=== PATIENT | female | born 1990 | race Caucasian/White ===

== ENCOUNTER 2024-05-23 08:05 | Emergency (ER) | payer BC, OTHER, SELFPAY ==
[2024-05-23] VITALS (13 sets, daily range): BP systolic 116–149; BP diastolic 72–103; PULSE 57–79; TEMP 36.8; O2SAT 98–100; BMI 25.8
[2024-05-23 08:21] LABS: Glucometer 105 mg/dL (74-106)
--- NOTE | 2024-05-23 08:34 | XR_ITS ---
The [address] [address] Patient Name: HARSH OLIVARES MRN: [id number] date: 1990 Sex: F Assigned Patient Location: ER Current Patient Location: ER Accession/Order Number: [id number] Exam Date: 05/23/2024 08:50 Report Date: 05/23/2024 09:05 At the request of: LISS WRIGHT Procedure: XR chest 1V EXAMINATION: XR chest 1V HISTORY: presyncope COMPARISON: No relevant comparison available. FINDINGS: LUNGS: No significant pulmonary parenchymal abnormalities. VASCULATURE: No increased pulmonary vasculature. PLEURA: No pneumothorax, effusion, or pleural thickening. CARDIAC: No cardiomegaly or cardiac silhouette abnormality. MEDIASTINUM: No visible mass or adenopathy. BONES: No fracture or visible bone lesion. OTHER: Negative. XR/XR chest 1V IMPRESSION: 1. No acute cardiopulmonary process. Electronically authenticated by: AYDE MIN Date: 05/23/2024 09:05
--- NOTE | 2024-05-23 08:35 | ED.GENADUL1 ---
HPI HPI - General Adult General Chief complaint: Dizziness Stated complaint: LIGHT HEADED, LOSS OF VISION, TINGLING IN ARMS Time Seen by Provider: 05/23/24 08:17 Source: patient Mode of arrival: walk-in History of Present Illness HPI narrative: Patient presented to the emergency department for evaluation of not feeling well. Patient states that prior to arrival she was at work, was just sitting there, and noticed that all of a sudden she started feeling lightheaded, got tunnel vision, loss of peripheral both sides, states she fell like she was going to pass out. Patient states that she was not feeling dizzy, was not having double vision or blurry vision, she just lost both peripheral exam, vision, folic she was going to pass out. She closed her eyes and just rested. Patient states at that time she was not having any chest pain, shortness of breath, palpitations. States she does feel like she was going to pass out. Patient states at that time her entire right arm started having tingling, she states it was from the shoulder all the way to the fingertips, medial as well as lateral, flexors was extensor service, states the entire arm felt like [id number] like when the arm falls asleep. She states that that lasted all approximately 2 to 3 minutes and is gone away spontaneously. Patient states that this happened to her also about a month ago, but she never followed up Or was worked up for it. The patient currently states that she is asymptomatic and has no complaints at this time Related Data Home Medications ?Medication ?Instructions ?Recorded ?Confirmed No Known Home Medications 05/23/24 05/23/24 Allergies Allergy/AdvReac Type Severity Reaction Status Date / Time No Known Drug Allergies Allergy Verified 05/23/24 08:11 Opioid HPI Opioid Management Most Recent Opioid Data: No Data to Display Review of Systems ROS Narrative Negative unless otherwise stated in the HPI Exam Narrative Exam Narrative: General: NAD, AAOx3, no distress Eyes: PERRL, EOMI, lids/conjunctiva normal. HEENT: NCAT, mmm, TMs normal bilaterally. No lymphangitis/lymphedema, midline uvula, no exudates, normal tonsils without hypertrophy or exudates Neck: Supple, no LAD, negative Kernig/Brudzinski, non meningeal, no bruit Respiratory: respiratory effort normal, speaks in full sentences, no tripod position, no accessory muscle use. Lungs clear to auscultation without rhonchi, wheezes, rales Cardiac: Regular rate and rhythm, no edema, regular s1/s2, no m/g/r Abdomen: Soft, ND/NT. No evidence of fluid wave. No pulsatile masses on exam, rebound tenderness, Jones sign or pain over Mcburney's point. Neuro: Speech is clear and appropriate. Normal level of consciousness. Gait and coordination are normal. 5/5 strength in all extremities. Constitutional Vital Signs, click to edit/add: Last Vital Signs Temp 98.3 F 05/23/24 08:12 Pulse 65 05/23/24 08:12 Resp 18 05/23/24 08:12 BP 149/103 H 05/23/24 08:12 Pulse Ox 98 05/23/24 08:29 O2 Del Method Room Air 05/23/24 08:29 Course Vital Signs Vital signs: Vital Signs Temperature 98.3 F 05/23/24 08:12 Pulse Rate 65 05/23/24 08:12 Respiratory Rate 18 05/23/24 08:12 Blood Pressure 149/103 H 05/23/24 08:12 Pulse Oximetry 100 05/23/24 08:12 Oxygen Delivery Method Room Air 05/23/24 08:12 Temperature 98.3 F 05/23/24 08:12 Pulse Rate 65 05/23/24 08:12 Respiratory Rate 18 05/23/24 08:12 Blood Pressure 149/103 H 05/23/24 08:12 Pulse Oximetry 98 05/23/24 08:29 Oxygen Delivery Method Room Air 05/23/24 08:29 Medical Decision Making [facility] Narrative Medical decision making narrative: [facility] Patient with history as above presented with presyncope, paresthesia. History obtained from patient. Patient was nontoxic, stable. Ambulatory. Exam as above. EKG reviewed. Labs reviewed. Independently reviewed imaging. Reviewed external records. Differential diagnosis considered. Overall presentation is consistent with presyncope Patient was reevaluated, had no complaints. States that she has had no repeat episodes and feels well, would like to go home. The patient presents with near syncope is not suggestive of pulmonary embolus, cardiac ischemia, aortic dissection, Hypertrophic cardiomyopathy, or other serious etiology. Given the extremely low risk of these diagnoses further testing and evaluation for these possibilities does not appear to be indicated at this time. EKG shows no high risks features suggestive of conduction abnormality, such as long QT syndrome, Brugada syndrome, preexcitation syndrome, pericarditis or Hypertrophic cardiomyopathy . A 2 D ECHO can be done as outpatient. The patient has been instructed to return if the symptoms worsen or change in any way. Likely vasovagal in etiology. He has no neurologic, metabolic: hypoxia, hypoglycemia, hyperventilation, or psychiatric causes of syncope.No evidence of mechanical cardiac disease including aortic stenosis, mitral stenosis, pulmonary stenosis on exam. His EKG obtained showed no acute abnormalities. No evidence of sinus node dysfunction, AV conduction disease, tachyarrhythmia or Supraventricular arrhythmia. Advanced guidance has been given. Vss, pex is benign at this time. Pt to fu with pcp 1-2 days for reeval, rter should sx worsen, persist or become worrysome in any way. Pt expressed understanding and agreement with plan of care at this time. Will fu as planned. Pt stable for discharge. Medical Records Medical records reviewed: Yes I reviewed the patient's medical records Lab Data Lab results reviewed: Yes I reviewed the patient's lab results Labs: Lab Results 05/23/24 05/23/24 Range/Units 08:12 08:16 WBC 7.3 (4.0-11.0) 10^3/uL RBC 4.55 (4.20-5.40) 10^6/uL Hgb 14.0 (12.0-16.0) g/dL Hct 42.3 (36.0-48.0) % MCV 93.0 (81.0-99.0) fL MCH 30.8 (26.7-34.0) pg MCHC 33.1 (29.9-35.2) g/dL RDW 12.3 (11.0-15.0) % Plt Count 294 (150-450) 10^3/uL MPV 9.6 (9.5-13.5) fL Neut % (Auto) 55.4 (43.0-75.0) % Lymph % (Auto) 34.6 (20.5-60.0) % [place]aston % (Auto) 7.5 (1.7-12.0) % Eos % (Auto) 1.6 (0.9-7.0) % Baso % (Auto) 0.8 (0.2-2.0) % Neut # (Auto) 4.1 (1.4-6.5) 10^3/uL Lymph # (Auto) 2.5 (1.2-3.8) 10^3/uL Gaston # (Auto) 0.6 (0.3-0.8) 10^3/uL Eos # (Auto) 0.1 (0.0-0.7) 10^3/uL Baso # (Auto) 0.1 (0.0-0.1) 10^3/uL Abs Immat Gran (auto) 0.01 (0.00-0.03) 10^3/uL Imm/Tot Granulo (auto) 0.1 (0.0-0.5) % PT 10.3 (9.0-11.6) sec INR 0.97 APTT 29.1 (22.3-36.2) sec Sodium 139 (136-145) mmol/L Potassium 4.3 (3.5-5.1) mmol/L Chloride 103 (98-107) mmol/L Carbon Dioxide 26.2 (21.0-32.0) mmol/L Anion Gap 14.1 BUN 12.0 (7.0-18.0) mg/dL Creatinine 0.74 (0.55-1.02) mg/dL Est GFR ( Amer) >60 (>=60) Est GFR (Non-Af Amer) >60 (>=60) BUN/Creatinine Ratio 16.2 Glucose 99 (74-106) mg/dL Calcium 9.3 (8.5-10.1) mg/dL Troponin I High Sens <4.0 L (4.0-51.3) pg/mL TSH 0.841 (0.358-3.740) uIU/mL POC Glucose 105 (74-106) mg/dL Discharge Plan Discharge Stand Alone Forms: Portal Instructions Chief Complaint: Dizziness Clinical Impression: Pre-syncope Patient Disposition: Home, Self-Care Time of Disposition Decision: 09:55 Condition: Good Prescriptions / Home Meds: No Action No Known Home Medications Print Language: French Instructions: Near Syncope (ED) Additional Instructions: 5 up with your PCP in the next 1 to 2 days. Return to the emergency department should symptoms worsen or become worrisome in any way Referrals: SARWAT MURRAY [Primary Care Provider] - 1 week
[2024-05-23 08:39] LABS: Basophils Absolute Auto 0.1 10^3/uL (0.0-0.1); Basophils Percent Auto 0.8 % (0.2-2.0); Eosinophils Absolute Auto 0.1 10^3/uL (0.0-0.7); Eosinophils Percent Auto 1.6 % (0.9-7.0); Hematocrit 42.3 % (36.0-48.0); Immature Granulocytes Abs Auto 0.01 10^3/uL (0.00-0.03); Immature Granulocytes Pct Auto 0.1 % (0.0-0.5); Lymphocytes Absolute Auto 2.5 10^3/uL (1.2-3.8); Lymphocytes Percent Auto 34.6 % (20.5-60.0); Mean Corpuscular HGB Conc 33.1 g/dL (29.9-35.2); Mean Corpuscular Hemoglobin 30.8 pg (26.7-34.0); Mean Platelet Volume 9.6 fL (9.5-13.5); Monocytes Absolute Auto 0.6 10^3/uL (0.3-0.8); Monocytes Percent Auto 7.5 % (1.7-12.0); Neutrophils Absolute Auto 4.1 10^3/uL (1.4-6.5); Neutrophils Percent Auto 55.4 % (43.0-75.0); Platelet Count 294 10^3/uL (150-450); Red Blood Count 4.55 10^6/uL (4.20-5.40); Red Cell Distribution Width 12.3 % (11.0-15.0); White Blood Count 7.3 10^3/uL (4.0-11.0)
[2024-05-23 08:47] LABS: INR 0.97; Partial Thromboplastin Time 29.1 sec (22.3-36.2); Prothrombin Time 10.3 sec (9.0-11.6)
--- NOTE | 2024-05-23 08:56 | ECG_ITS ---
The [facility] Test Date: 2024-05-23 Pat Name: HARSH OLIVARES Department: Room: - Gender: Female Pelt Salter: : 1990 Requested By: [id number] Order Number: [id number] Reading MD: HOLGER MELARA Measurements Intervals [place] Rate: 61 P: 65 NE: 138 QRS: 34 QRSD: 90 T: 52 QT: 412 QTc: 415 Interpretive Statements 1100 Sinus rhythm 9110 normal ECG No previous ECG available for comparison Electronically Signed On 05-23-2024 22:15:03 EDT by HOLGER MELARA
[2024-05-23 09:00] LABS: Anion Gap 14.1; BUN Creatinine Ratio 16.2; Calcium 9.3 mg/dL (8.5-10.1); Carbon Dioxide 26.2 mmol/L (21.0-32.0); Chloride 103 mmol/L (98-107); Estimated GFR (African America >60 (>=60); Estimated GFR (Non-African Ame >60 (>=60); Glucose 99 mg/dL (74-106); Potassium 4.3 mmol/L (3.5-5.1); Sodium 139 mmol/L (136-145)
[2024-05-23 09:01] LABS: Thyroid Stimulating Hormone 0.841 uIU/mL (0.358-3.740); Troponin I High Sensitivity <4.0 pg/mL (4.0-51.3)
== END 2024-05-23 10:02 | disposition home or self-care (01) ==
PROVIDERS: Emergency Provider Emergency Medicine
DX: R55 Syncope and collapse (principal)
CPT/HCPCS: 36415; 71045; 80048; 84443; 84484; 85025; 85610; 85730; 93005; 99285

== ENCOUNTER 2025-07-04 12:01 | Emergency (ER) | payer BC, SELFPAY ==
[2025-07-04 12:06] VITALS: BP 146/93; PULSE 64; TEMP 36.6; O2SAT 100; BMI 29.0
--- OUTSIDE RECORDS SUMMARY | 2025-07-04 12:10 | XMS_ITS | CCD ---
Author Organization [facility] Care Team Providers Care Enrollment Representative Name Role Phone Sarwat Umana Primary Care Provider NATHALY PATTERSON Attending Unavailable MURRAY, SARWAT A Primary Care Unavailable ANTHONY BARBA Attending Unavailable MURRAY, SARWAT A Primary Care Unavailable KARASIK, DR GALLEGOS Attending Unavailable KARASIK, DR GALLEGOS Admitting Unavailable MURRAY, SARWAT Primary Care Unavailable KARASIK, DR GALLEGOS Consulting Unavailable SARINA, DR BUTLER Admitting Unavailable SARINA, DR BUTLER Attending Unavailable SARINA, DR BUTLER Consulting Unavailable MURRAY, SARWAT Primary Care Unavailable ZIEBER, DR AYDE Sousa Consulting Unavailable KARASIK, DR GALLEGOS Admitting Unavailable KARASIK, DR GALLEGOS Attending Unavailable KARASIK, DR GALLEGOS Consulting Unavailable MURRAY, SARWAT Primary Care Unavailable KARASIK, DR GALLEGOS Admitting Unavailable KARASIK, DR GALLEGOS Attending Unavailable KARASIK, DR GALLEGOS Consulting Unavailable MURRAY, SARWAT Primary Care Unavailable KARASIK, DR GALLEGOS Admitting Unavailable REQUEST, NONE LISTED Primary Care Unavaila ble KARASIK, DR GALLEGOS Consulting Unavailable KARASIK, DR GALLEGOS Attending Unavailable REQUEST, NONE LISTED Primary Care Unavaila ble KARASIK, DR GALLEGOS Admitting Unavailable KARASIK, DR GALLEGOS Attending Unavailable GLEN PACKER Admitting Unavailable KARASIK, DR GALLEGOS Consulting Unavailable GLEN PACKER Attending Unavailable MURRAY, SARWAT Primary Care Unavailable BALTA TORRES Consulting Unavailable YURIY WISE Consulting Unavailable KARASIK, DR GALLEGOS Admitting Unavailable KARASIK, DR GALLEGOS Attending Unavailable KARASIK, DR GALLEGOS Consulting Unavailable MURRAY, SARWAT Primary Care Unavailable ZIEBER, DR AYDE Sousa Consulting Unavailable KARASIK, DR GALLEGOS Admitting Unavailable KARASIK, DR GALLEGOS Attending Unavailable KARASIK, DR GALLEGOS Consulting Unavailable MURRAY, SARWAT Primary Care Unavailable PRAMOD ELLIOTT Consulting Unavailable NOEL, DR GALLEGOS Procedure Practitioner Unava ilable NOEL, DR GLALEGOS Admitting Unavailable SARWAT MURRAY Primary Care Unavailable KARASIK, DR GALLEGOS Attending Unavailable KARASIK, DR GALLEGOS Consulting Unavailable ZIEBER, DR AYDE Sousa Consulting Unavailable KARASIK, DR GALLEGOS Consulting Unavailable KARASIK, DR GALLEGOS Admitting Unavailable KARASIK, DR GALLEGOS Attending Unavailable REQUEST, DR NONE LISTED Primary Care Unavaila ble KARASIK, DR GALLEGOS Consulting Unavailable KARASIK, DR GALLEGOS Admitting Unavailable KARASIK, DR GALLEGOS Attending Unavailable ZIEBER, DR AYDE Sousa Consulting Unavailable REQUEST, DR NONE LISTED Primary Care Unavaila ble KARASIK, DR GALLEGOS Consulting Unavailable KARASIK, DR GALLEGOS Admitting Unavailable KARASIK, DR GALLEGOS Attending Unavailable Joaquim Osuna Primary Care Physician [phone] Chucho Kwon Attending Unavailable Sharath CALIX Attending Unavailable Sharath CALIX Attending Unavailable Medications Current Medications Medication Drug Class(es) Dates Sig (Normalized) Sig (Original) acetaminophen 500 mg oral tablet (1 source) take 2 tablets by mouth every six hours as needed for pain acetaminophen (TYLENOL) 500 MG tablet Take 1,000 mg by mouth every 6 hours as needed for Pain 0 Active acetaminophen 325 mg / HYDROcodone bitartrate 5 mg oral tablet (1 source) Opioid Agonist Start: 06-17-2017 Brice 325 mg-5 mg oral tablet See Instructions, for pain, 40 tab(s), Refill(s) 0, 1-2 tab(s) Oral q4hr Start Date: 06/17/17 Status: Ordered azithromycin 250 mg Tab 5-day Dose Pack (Z-Abe) (1 source) Start: 10-19-2022 End: 10-24-2022 azithromycin 250 mg Tab 5-day Dose Pack (Z-Abe) = 1 packet(s), Oral, As Directed, as directed on package labeling, X 5 day(s), # 6 tab(s), Refills(s) 0, Pharmacy: [id number], 170, cm, 10/19/22 16:59:00 EST, Height/Length Dosing, 66, kg, 10/19/22 16:59:00 EST, Weight Dosing Start Date: 10/19/22 Stop Date: 10/24/22 Status: Ordered docusate sodium 100 mg oral capsule (1 source) Start: 06-17-2017 take 1 capsule by mouth twice daily as needed for constipation Colace 100 mg Cap 100 mg = 1 cap(s), Oral, BID, PRN for constipation, # 20 cap(s), Refills(s) 0 Start Date: 06/17/17 Status: Ordered naproxen 500 mg delayed release oral tablet (2 sources) Nonsteroidal Anti-inflammatory Drug Start: 06-17-2017 take 1 tablet by mouth twice daily at mealtime naproxen 500 mg oral enteric coated tablet 500 mg = 1 tab(s), Oral, BID, with food, # 60 tab(s), Refills(s) 0 Start Date: 06/17/17 Status: Ordered Start: 06-13-2017 take 500 mg by mouth every twelve hours as needed for pain naproxen 500 mg, Oral, q12hr, PRN as needed for pain Start Date: 06/13/17 Status: Ordered predniSONE 50 mg oral tablet (1 source) Start: 10-19-2022 End: 10-24-2022 take 1 tablet by mouth once daily predniSONE 50 mg Tab 50 mg = 1 tab(s), Oral, Daily, X 5 day(s), # 5 tab(s), Refills(s) 0, Pharmacy: [id number], 170, cm, 10/19/22 16:59:00 EST, Height/Length Dosing, 66, kg, 10/19/22 16:59:00 EST, Weight Dosing Start Date: 10/19/22 Stop Date: 10/24/22 Status: Ordered Vit-Fe Fumarate-FA ( PO) (1 source) take 1 tablet by mouth once daily Vit-Fe Fumarate-FA ( PO) Take 1 tablet by mouth daily 0 Active Completed/Discontinued Medications Medication Drug Class(es) Dates Sig (Normalized) Sig (Original) clindamycin 150 mg oral capsule (2 sources) Lincosamide Antibacterial Start: 04-08-2021 End: 04-08-2021 clindamycin (CLEOCIN) capsule 300 mg Start: 04-08-2021 End: 04-18-2021 take 1 capsule by mouth three times daily clindamycin (CLEOCIN) 300 MG capsule Take 1 capsule by mouth 3 times daily for 10 days 30 capsule 0 04/08/2021 04/18/2021 Active Problems Active Problems Problem Classification Problem Date Documented Date Episodic/Chronic Chronic obstructive pulmonary disease and bronchiectasis (1 source) Bronchitis; Translations: [Bronchitis, not specified as acute or chronic] Onset: 10-19-2022 Episodic Disorders of teeth and jaw (1 source) Infection of tooth; Translations: [Periapical abscess without sinus] Episodic Hemorrhage during ; abruptio placenta; placenta previa (10 sources) Bleeding from female genital tract during ; Translations: [Antepartum hemorrhage, unspecified, unspecified trimester] Onset: 04-30-2021 Episodic Immunizations and screening for infectious disease (6 sources) Encounter for screening for infections with a predominantly sexual mode of transmission; Translations: [Contact with and (suspected) exposure to infections with a predominantly sexual mode of transmission] Onset: 12-30-2020 Episodic Other complications of (4 sources) Decreased movements, third trimester, not applicable or unspecified; Translations: [DECR MOVEMENTS 3RD TRI NA/UNS] Onset: 10-07-2021 Episodic Other female genital disorders (1 source) Other specified noninflammatory disorders of vagina; Translations: [OTH SPEC NONINFLAMMATORY D/O VAGINA] Onset: 10-07-2021 Episodic Other and delivery including normal (9 sources) Encounter for supervision of normal , unspecified, third trimester; Translations: [Encounter for full-term uncomplicated delivery] Onset: 04-02-2021 Episodic Other screening for suspected conditions (not mental disorders or infectious disease) (20 sources) Encounter for screening for Streptococcus B; Translations: [Encounter for screening for diabetes mellitus] Onset: 12-25-2020 Episodic Other skin disorders (1 source) Mass of soft tissue 06-13-2017 Episodic Comment on above: right wrist Residual codes; unclassified (1 source) 39 weeks gestation of ; Translations: [39 WEEKS GESTATION OF ] Onset: 10-22-2021 Episodic Residual codes; unclassified (1 source) 37 weeks gestation of ; Translations: [37 WEEKS GESTATION OF ] Onset: 10-13-2021 Episodic Substance-related disorders (1 source) Smoker 06-13-2017 Chronic Comment on above: Added secondary to d ocumentation in Social History. Unclassified (1 source) CONTACT W/AND (SUSP) EXPOS COVID-19; Translations: [CONTACT W/AND (SUSP) EXPOS COVID-19] Onset: 10-22-2021 Past or Other Problems Problem Classification Problem Date Documented Da te Episodic/Chronic Residual codes; unclassified (1 source) 15 weeks gestation of ; Translations: [15 WEEKS GESTATION OF ] Onset: 05-04-2021 Episodic Screening and history of mental health and substance abuse codes (1 source) Personal history of nicotine dependence; Translations: [PERSONAL HISTORY OF NICOTINE DEPEND] Onset: 05-04-2021 Episodic Results Test Name Value Interpretation Reference Range Facility ED Note-Physicianon 10-26-19 ED Note-Physician Basic Information Time Seen: Chucho Kwon DO 10/19/2022 17:44 Chief Complaint cough x 1 month with congestion. History of Present Illness 32-year-old female reports the emergency department with a chief complaint of a cough that has been going on for a month. Reports that she also has sinus congestion. Reports he got better for 2 to 3 days over the last month, but has been a lingering cough for her. Reports that he tried usjw-nzz-incyvlk medications, with no relief of her symptoms. States little bit of a sore throat due to the cough. Denies any fevers or chills. Denies any body aches. Denies any history of asthma. Reports history of smoking. Reports that her daughter has also had a recent symptoms, but she is pulling in her ears. Denies any allergies. Denies any other recent sick contacts. Review of Systems A 10 point review of systems is negative except as noted above. Medical and Surgical History: Reviewed and noted Social history: Lives at home Family History: Reviewed. Tobacco: User Physical Exam Vitals & Measurements T: 36.7 ?C(Oral) HR: 91(Peripheral) RR: 18 BP: 146/102 SpO2: 98% HT: 170 cm WT: 66 kg BMI: 22.84 General: The patient appears well and in no apparent distress. Patient is resting comfortably in chair. Afebrile Skin: Warm, dry, no pallor noted. Head: Normocephalic, atraumatic Neck: No JVD Eye: PERRLA, EOMI ENT: Moist mucus membranes. Pharynx pink moist no erythema or exudates. Bilateral TMs intact with no erythema or bulging Cardiovascular: Regular rate normal peripheral perfusion. Radial pulse +2 bilaterally. Respiratory: No respiratory distress no accessory muscle use no obvious audible wheezing. Lung sounds clear to auscultation with very minimal wheezing/rhonchi sounds heard Chest Wall: no deformity Musculoskeletal: normal ROM, no deformity, no swelling GI: No obvious distention soft nontender nondistended no guarding rebounding or rigidity Neurological: A&O moves all extremities equal strength and symmetry Psychiatric: Cooperative and appropriate Medical Decision Making MEDICAL DECISION MAKING Number and Complexity of Problems Differential Diagnosis: [] [facility] Data External documents reviewed: [] My EKG interpretation: [] My CT interpretation: [] My X-ray interpretation: Reviewed My Ultrasound interpretation: [] Decision rules/scores evaluated: [] Discussed with: [] Treatment and Disposition ED Course: 32-year-old female reports emergency department chief complaint of cough that is been going since a month ago. Reports that it is not getting better. Reports that she has tried uqim-olw-ypsixil medications without much relief of her symptoms. Reports that she is still coughing. Denies any recent antibiotic use. Reports that she has tried ywpe-skw-vnptyvp medication without relief. Denies any fevers or chills. Denies any body aches or recent sick contacts. Physical exam of the patient is relatively benign, with very minimal wheezing heard on lung sounds examination. Due to the patient's clearance, we did do a COVID swab as well as a chest x-ray. COVID was negative as well as chest x-ray was also negative. Based on the patient's symptoms of believe that she may be having a bacterial bronchitis, so we will start patient on antibiotics as well as a prednisone dose. See reason for antibiotics below. Patient was agreeable with this. Discussed that she does take antibiotics and medication as prescribed. Continue take ibvn-kzy-apdufin medications. Discussed return precautions. Follow-up with your primary care provider in 3 to 5 days. If symptoms worsen, do not improve, or new symptoms arise please report back to emergency department for further evaluation. The patient was understanding and agreeable to plan moving forward. []The patient has acute bronchitis/bronchiol itis and antibiotics were not prescribed or dispensed today.[SATISFIES MIPS PERFORMANCE] [x] The patient has acute bronchitis/bronchiol itis. Antibiotics were prescribed or dispensed because the patient meets one of the following: [MIPS PERFORMANCE EXCEPTION/EXCLUSION] [] Patient has a medical reason for prescribing or dispensing an antibiotic. That reason is symptoms have been going on for nearly 4 weeks, without improvement, likely leading to a bacterial infection causing patient's symptoms. (ex. COPD, bacterial infection, acute sinusitis, etc.). [] Patient is currently on antibiotics or has been in the last 30 days. [] Patient?s visit resulted in an inpatient admission. []The patient has acute bronchitis/bronchiol itis and antibiotics were prescribed or dispensed today. [DOES NOT SATISFY MIPS PERFORMANCE] Shared decision making: [] Code status: [] Assessment/Plan Bronchitis (J40: Bronchitis, not specified as acute or chronic) Orders: azithromycin, = 1 packet(s), Oral, As Directed, as directed on package labeling, X 5 day(s), # 6 tab(s), Refills(s) 0, Pharmacy: [id number], 874 (more content not included)... Normal [facility] Comment on above: Result Comment: Elec tronically Signed By: Tony Hamlin PA-C\.br\Date and Time Signed: 10/19/22 21:25 EST\.br\Electronically Co-Signed By: Chucho Kwon DO\.br\Date and Time Co-Signed: 10/26/22 07:09 EST Coding Summary.on 10-22-2022 Coding Summary. [id number] Gh0bWw+PGhlYWQ+PE1FV HGqG47zbDJyhV2SS5cZZ P3HCAXKJVDRAA9NDW1rf AJ7EIiwW3FgddLi UdklqWMeDE12FAs6FAT9 rOinJMygzZ6nrBQxX2o2 GqWmGK67mO11TPfxTTWt OkB6YmGbolmqmLJy U6qdNlPkwGHiAge+PHRh YmxlIHdpZHRoPScxMDAl AlMsfFljBV2zVt5zGQRz LWNvbGxhcHNlOiBj c3qqAKSoZMjaCO2nsQei D0NqdQJ9MODds6j8Sh04 dHI+UGTjPFC1eVxaTGlm u528DtTkb1xfDVA6 xUCdIZyuPRN8T07dh8B2 XTWdSWOgZPE1eYM8uB8b hFwqcmyoI6ZqgOCsYaB6 PVH9lKYquC4yxJeo cohafI3mEpu+T08OGT1A AIVAST6ZQzm0S3GjSqbe dHI+SM17XECiMK96lTYm jGTky0dyoLd1RxPw VHKrRPD4bHvaNWwjc2Ct MOOpV34dpPWik4P2HJTy eIbxiNUbGyJswZV0bN9t CWfkpklqv1mnxlrq Gyobp8facs03fI58B79y IEvxMQQsIPV8UFVoORVm dRwsxx7jxB7vRj8+IDxj j9xvl6olbQc0BnIg QCGwweAqoIweIIM8y6Rl Sd05S5QwcKlnd8WpJvn6 fm38aCRxd2O2mCD5PUtf ILHglL3oXQzoPuP8 DPNlEnZquB06kLYvWMve Lb4ygQzhrUanRX3sNXYp uoxkJGPltW5nXTXvlNDe fOdvKR2uZMGwfjhf p265NaJkIAP1DTYnvJCb S8WvdI0oOcAuIAUlOAUm I4FaqYEhAFfhJ296KOcq KvB8JHBqmyTiR4Cd MRUmyWtiSlD1k7B0Fm6A l5RbvmuvWVN2WHkgZPLw FzF3VaJcYiF0U7ZsPjc4 XYCjnWhgSV0jM5Do GTTasegpcxinaDX3KXHd FBZayV95hRJbOCcwHl4q s9S8q830AXStUGXmtE30 Xz9lfLquEBMugBQL pL4lhuzcp3qqshenIkVt GKQsJBg4GQu0NQEnbStb JzAmFED1LlX4DOJ4yWMm rT9hxKhfiiafyE1e Oyc+U05svL4bPYV4XKX9 zmkaAISgguBaEO77RK43 J8AhNtaicMEavMB+PGRp qyYrbFcsOD8yAmXs d2uds2DmAKaoN1KgTRBc AMbtYcl1IRFtSNO1aVY0 wP6rLHMxBQflm9X1nXI2 K2LyfbJxge2dk1md JGSkKAamB09shEGwi1K7 QKOvuVN8PCZrbHruElPf nS09Rsy+FIVwdTjza5Nm Owqyi2mcx4bxuSc7 IjMwJSIgdmFsaWduPSJ0 t7CyHt38K87aVNguMMCj APRgNILsKYPmzElarx9b wH1iQc6+PGNvbCB3 uXH2aM1tYIRzRzP1XBgw U528PbCloREjTzalx8lj o7uqdCy2HyOeSYPgflZm eSknVIP3r3EyVl24 F10hYSodLYKsTIFoRZTk WKTueJkjrv3ufS4wLp3+ CC0jv6mdon24mY84iZL+ CDBqOXI7mMwzDQvc LFIvpX8pLEihPoH8PNTc MhGrrD72aZZsDDfcYp0g hDfxoRcwTH3nSRDyqkix f589PoAnn7odALFo xGDoOIpjPPK4Z64gg7C2 HTPuXWNxGSZ5zAH2dJ8y bGlnbjogbGVmdDsgdmVy bQgqBPadAVgyX715 IHRvcDsnPlBhdGllbnQg YeTxJIj1T0YoQvl7HVEi oVxwJY7svOUqTEafYd7c eDaczCnaZI7bBSWg mhkoh905EgKvc6tlJWLh mOKfNJpyGVE8H08ro4K6 WEUqEMVgPJO6mYZ5jJ2t bGlnbjogbGVmdDsg xtJrqEheOXqqJKcrF644 IHRvcDsnPkJpcnRoIERh wWP4QA42JE89bSCvq3Q5 lDM0S9NuFUYmdept zkdtiIX2FAGjVWApbP74 Ig8xjErlFg5xBDNlOPH9 VJUjkSDnD8GekF9dMnMt JJRyBBOxH9BuoVFv ARcdL401SOhbXdR9IIJz mnEyN0MoEKIuoYhtQoX8 t6I8Yk9LA9V9EJ83OP36 hBYxu1K5bGW3T0Ka TCShgkagvqhwnJS7RWNp DYAmmO92Zq8ylZylTu1e SUYbHFL6PCApiBMiK3Ms aT5fFrRvOCGrSTJt O3EamNGeSKqsW459JXof CyU6ZCZkdyDpT8YpANYz bQkqScR8a3H9Xr7OSXy0 IQ24LN17cVXjd2I3 vZH6F3TuWXAcivkfqoib pAM9SECpEWTzkB50Hs3a eOxwRy7eTVXiREX4ZXXu uEVxR7WuaU5bYkCe OLCcMQHlA0VuaQJtCElt B429TGxzAcK3TTAflyZu I7LfPNBwwCmdVvI3c0P3 Kc2DTLHtFG05LEV3 aFI6MU68HF91V5DbTpkn dGFibGU+PHRhYmxlIHdp ZHRoPScxMDAlJyBzdHls MU1oOu8qZKLvNROq lBtsvNNwLqMox0fzHOMi QOmyBR0rwLzoE4LewID7 MYBng1r7Xi57F88tE9Ye dXA+AMUajGU1yAC7 vF1cQbJrPvU8FXviO725 HdYksPYcClnfs6bhu0gc lIl5YuC3YKRdbmNqwPrd PES4e3AxDg61I88r IHdpZHRoPSIxNSUiIHZh nFcsof6dpX6iBc4+PGNv nFD3mDC0nB7aKkVkEfV0 XEjwO536OwXqkZUv Nxeng2uzi1iwpWb5EkTa JBRcmqMnoXcrOQD5a7Dv Wb65E2TbvChna9MrLpf1 ef80uBPlm2A6sMW0 N4XoAWGetwfclRKrtJzc RH0mHVVlffoeUIQpnD1p LHLeX1l0NmUxOmU3UJch J2NmyzT9TXIncEAj LIzxMGF4M19rf8W6OIGl OOIhOGU2xGV1mC5ymMpi bjogbGVmdDsgdmVydGlj MEdeASzkT178TISm eAalOLWvpI6pBYShxRUw oQahSC8bPBHuhlojMyoN UkQsIFNBTUFOVEhBIFI8 W1RyGfh4EAZbxPbl PY1qeHJqEByfJz1uqXae fBxoWG1aAAKvkdssIONr mZ9aROVstRSotEwqNU3b VSEyyfvry042DeEn DRM6YGMmlTQhX5LzdS6d RkEeYCUlZZXiP2HpgMSz KIxcG822JAeoOeG5FMXp vdJuS4LbUPVgjQwu HyV6v6H0Dv2jYK7pHX4c BDv6KJ60RY64yXChf6W0 xEK2F5NxIQVxoupzbjcn hCB8ZCNnGJEggN45 jSAjVHchAr8gv6X0q997 XMWgMSOxpW01Fd1zzBkb WAZylXCIfT9xmaihp4wl cjogIzAwMDAwMDt0 PJj1VSVwoJuqKiHmMZH4 VvL0WTQ5yAKcwE4vcVat zkthgU4bCjj+MzQgWWVh hwL0D9TyEyg1ZLPv mJoqND4eeTZtEEbjYe4p dZkfwRvfOG8sKNBlaalv MQPacE4eXJTpaZBssLwk YD2kJRLazreaj793 AeEjBPA9STTsgPTaG9Tq sH5xAgCaHRRqMGVwU9Ay jATjAKsjV627LVhzFlB8 JKOniwNcC4MxSQTh aKlvLpM8q7B2Fw5BXK7y hPN2D7QcBat1PGPkrIlc OX3hdTHvCFiuMm5giQrt tSwiDO9hABSefcgv QDHhcQ9qDHXknRVdeYzc NN2wVYImhqror936ZqOt RDG5BDYgeNCaV2RogK7a GsIbLTGdDRNmK3Bu mFVrJGknB508PWbrGaN6 AGEkogOoC8YkQYKvjGve SqZ6x0R3Jn2EoASqH7Bu X7w7Z2HhFcymzJC+ FD43ROFnTX70jPZrxMAg f9vpsQf7JqPrFBYuBIH4 zUzkDLwmt4ZkRLGnW85d kQCzx6J5EDPgfDpw uUVvTzXhoCA1mB3dJJhp osvuy5tmycelGpaqd8ip fy73pH53G17oSZblEOGz PSIzMCUiIHZhbGln ne3pqF2xMx0+PGNvbCB3 lVB4fY5pJiXbMlC5HYtv P197QoAdsFDsEleje5xq w3zkyMp8IgHdZJEd snMmlMysMYN3c2EhCp28 S35oMTegZDHyHZDuUMGn WBLjbVvgqi1fxW4mYt4+ ID3hy6dhyr95lH96 dHI+ZLLjYQZ1nTtiMKbd OZZxmL1lSPbcWrS4FVRj QaDpcN44iLOgFKzoWh1v lHumwGjpDT1xKYMr nzajj245JhFlj7qnORUq mAFtTAjxUGC6M71xt7D0 MTTxVETtWJC2kSQ6iT5p bGlnbjogbGVmdDsg vzOajEjoCGiiYZvpS693 WOQicGxtAvIkvFOiR1jp ioTXWB2jWxquoCJ+PHRk GNV1uSkqSNupIMXm wO6uMCMxK3i1YbLuYaH2 ATuzX0HngrC4CJLghBGz QKXhyNYPdJ2zfrdjk8ns cjogIzAwMDAwMDt0 CIm3PIPrtMckLjBfYJW0 FtG0DCS7lCZjoQ6coAzg qacyuY4eVcw+RklOOjwv dGQ+TMKfOJK2bGyt PZqvQWWcpZ6tYPOtZ3s0 NhKbEtR5LCigC9QtbzZ6 JCEqiNEiJXMjePCChZ1u dhtmk1hlxyzxTlZc PZLqWJp8VTn5TEKdzPht FbBgZOT4XaL0MEW7iHQp qB3ktNilgdeonF9vTca+ TVJOOjwvdGQ+PHRk VFL0sVpyZPomGTRcuT7p HMAeE8e4UjJdWsJ7IXtx Y9ExorX5OZRiqLNzHFAs wSFJbR5prdcct7sy ikpfGePxSTAxANz7OUf3 MYFvjRcdEjQnXUR5EaU7 BQL4pEEbjT1ryZgmoioi dL0iLpf+BQZ7JZD6 PI83GW73R7HdYmqdnQPr bGU+PHRhYmxlIHdpZHRo QVphCEScJqLjeNljNC6k Ft9nVISaYRWeuYra cHNl (more content not included)... Normal [facility] XR Chest 2 Viewson XR Chest 2 Views Exam Date/Time: 10/19/2022 18:12 EST Reason for Exam: Cough Report IMPRESSION: NO EVIDENCE OF ACTIVE CHEST DISEASE. CLINICAL HISTORY: Cough. COMMENT: The heart is normal in size. The mediastinum is unremarkable. The lungs appear clear. No infiltration nor pleural effusion is evident. FINAL REPORT Dictated: 10/20/2022 7:54 am Milton Ochoa M.D. Signed (Electronic Signature): 10/20/2022 7:54 am Signed by: Milton Ochoa M.D. Transcribed by: LACY Technologist: AO Normal [facility] Consent for Treatmenton Consent for Treatment [id number] #[id number]:127 Normal [facility] Discharge Instructionson Discharge Instructions [id number]#1.00CD:127 Normal [facility] ED Clinical Summaryon 2022 ED Clinical Summary [place] [id number] ED Clinical Summary Person Information Name: HARSH ARANGO Joanne/[facility] Age: 32 Years : 1990 Sex: Female Language: Ethiopian PCP: Joaquim Osuna DO Marital Status: Single Phone: [phone] Visit Id: Visit Reason: Sinus Pain/Congestion; Cough; BAD COUGH/CAUSING CHEST TO HURT/CONJESTION Speciality: Acuity: 4 Enc Type: Emergency Med Service: Emergency Arrival: 10/19/2022 16:52:07 Discharge: 10/19/2022 18:38:02 LOS: 000 01:46 Checkin: 10/19/2022 16:52:07 Checkout: 10/19/2022 18:38:02 Dispo Type: Home (Routine DC) EVENTS: Event Name Event Status Request Date/Time Start Date/Time Complete Date/Time Arrive Complete 10/19/2022 16:52:07 10/19/2022 16:52:07 10/19/2022 16:52:07 Document Home Meds Request 10/19/2022 16:52:07 Triage Complete 10/19/2022 16:52:07 10/19/2022 16:59:10 10/19/2022 16:59:10 Pending Labs Complete 10/19/2022 17:10:34 10/19/2022 17:42:01 Lab Complete 10/19/2022 17:10:34 10/19/2022 17:42:01 Bed Assign Complete 10/19/2022 17:43:51 10/19/2022 17:43:51 10/19/2022 17:43:51 Dr Exam Complete 10/19/2022 17:43:51 10/19/2022 17:44:53 10/19/2022 17:44:53 RN Exam Complete 10/19/2022 17:43:51 10/19/2022 18:09:14 10/19/2022 18:09:14 Registration Complete 10/19/2022 17:44:53 10/19/2022 18:08:25 10/19/2022 18:08:25 Dr Exam Complete 10/19/2022 17:45:11 10/19/2022 17:45:11 10/19/2022 17:45:11 X-Ray Complete 10/19/2022 18:00:54 10/19/2022 18:08:12 10/19/2022 18:12:44 Reg Complete Request 10/19/2022 18:08:25 Reg Bed Request Complete 10/19/2022 18:08:25 10/19/2022 18:08:25 10/19/2022 18:08:25 Wet Read Complete 10/19/2022 18:12:44 10/19/2022 18:13:24 10/19/2022 18:13:24 Discharge Complete 10/19/2022 18:20:39 10/19/2022 18:40:12 10/19/2022 18:40:12 Transfer Complete 10/19/2022 18:40:12 10/19/2022 18:40:12 10/19/2022 18:40:12 ADDRESS: [facility] [place] [id number] PHYS DOC NOTES: MEDICAL INFORMATION: Prescriptions Given: New Medications [facility] [address], [address], [place] [id number], [phone] azithromycin (azithromycin 250 mg Tab 5-day Dose Pack (Z-Abe)) 1 Packets By Mouth As Directed for 5 Days. as directed on package labeling. Refills: 0. predniSONE (predniSONE 50 mg Tab) 1 Tablets By Mouth every day for 5 Days. Refills: 0. Medications to Continue with No Changes Other Medications acetaminophen-hydroc odone (Brice 325 mg-5 mg oral tablet) 1-2 tab(s) Oral q4hr; as needed for pain. Refills: 0. docusate (Colace 100 mg Cap) 1 Capsules By Mouth 2 times a day as needed for constipation. Refills: 0. naproxen 500 Milligram By Mouth every 12 hours as needed as needed for pain. naproxen (naproxen 500 mg oral enteric coated tablet) 1 Tablets By Mouth 2 times a day. with food. Refills: 0. PATIENT EDUCATION INFORMATION: Instructions: Acute Bronchitis, Adult; Upper Respiratory Infection, Adult, [id number] Follow up: With: Address: When: Joaquim Osuna [address] [place], [place] [address]lorie Painter, [facility] [address] [place] [address] [facility] ([employer] In 3 days 10/22/2022 Comments: Follow-up with your primary care provider in 3 to 5 days. If symptoms worsen, do not improve, or new symptoms arise please report back to emergency department for further evaluation. DIAGNOSIS: Bronchitis Normal [facility] ED Patient Education Noteon 10-19-2022 ED Patient Education Note Infectious Disease Upper Respiratory Infection, Adult An upper respiratory infection (URI) affects the nose, throat, and upper air passages. URIs are caused by germs (viruses). The most common type of URI is often called the common cold. Medicines cannot cure URIs, but you can do things at home to relieve your symptoms. URIs usually get better within 7?10 days. Follow these instructions at home: Activity ? Rest as needed. ? If you have a fever, stay home from work or school until your fever is gone, or until your doctor says you may return to work or school. ? You should stay home until you cannot spread the infection anymore (you are not contagious). ? Your doctor may have you wear a face mask so you have less risk of spreading the infection. Relieving symptoms ? Gargle with a salt-water mixture 3?4 times a day or as needed. To make a salt-water mixture, completely dissolve ??1 tsp of salt in 1 cup of warm water. ? Use a cool-mist humidifier to add moisture to the air. This can help you breathe more easily. Eating and drinking ? Drink enough fluid to keep your pee (urine) pale yellow. ? Eat soups and other clear broths. General instructions ? Take gapo-dwc-pjebdou and prescription medicines only as told by your doctor. These include cold medicines, fever reducers, and cough suppressants. ? Do not use any products that contain nicotine or tobacco. These include cigarettes and e-cigarettes. If you need help quitting, ask your doctor. ? Avoid being where people are smoking (avoid secondhand smoke). ? Make sure you get regular shots and get the flu shot every year. ? Keep all follow-up visits as told by your doctor. This is important. How to avoid spreading infection to others ? Wash your hands often with soap and water. If you do not have soap and water, use hand carbon lamp cleaner. ? Avoid touching your mouth, face, eyes, or nose. ? Cough or sneeze into a tissue or your sleeve or elbow. Do not cough or sneeze into your hand or into the air. Contact a doctor if: ? You are getting worse, not better. ? You have any of these: ? A fever. ? Chills. ? Brown or red mucus in your nose. ? Yellow or brown fluid (discharge)coming from your nose. ? Pain in your face, especially when you bend forward. ? Swollen neck glands. ? Pain with swallowing. ? White areas in the back of your throat. Get help right away if: ? You have shortness of breath that gets worse. ? You have very bad or constant: ? Headache. ? Ear pain. ? Pain in your forehead, behind your eyes, and over your cheekbones (sinus pain). ? Chest pain. ? You have long-lasting (chronic) lung disease along with any of these: ? Wheezing. ? Long-lasting cough. ? Coughing up blood. ? A change in your usual mucus. ? You have a stiff neck. ? You have changes in your: ? Vision. ? Hearing. ? Thinking. ? Mood. Summary ? An upper respiratory infection (URI) is caused by a germ called a virus. The most common type of URI is often called the common cold. ? URIs usually get better within 7?10 days. ? Take pfid-ilz-yxvoner and prescription medicines only as told by your doctor. This information is not intended to replace advice given to you by your health care provider. Make sure you discuss any questions you have with your health care provider. Document Released: 03/21/2009 Document Revised: 10/11/2019 Document Reviewed: 05/26/2018 [employer] Patient Education ? 2019 [employer]. Pulmonary Medicine Acute Bronchitis, Adult Acute bronchitis is sudden (acute) swelling of the air tubes (bronchi) in the lungs. Acute bronchitis causes these tubes to fill with mucus, which can make it hard to breathe. It can also cause coughing or wheezing. In adults, acute bronchitis usually goes away within 2 weeks. A cough caused by bronchitis may last up to 3 weeks. Smoking, allergies, and asthma can make the condition worse. Repeated episodes of bronchitis may cause further lung problems, such as chronic obstructive pulmonary disease (COPD). What are the causes? This condition can be caused by germs and by substances that irritate the lungs, including: ? Cold and flu viruses. This condition is most often caused by the same virus that causes a cold. ? Bacteria. ? Exposure to tobacco smoke, dust, fumes, and air pollution. What increases the risk? This condition is more likely to develop in people who: ? Have close contact with someone with acute bronchitis. ? Are exposed to lung irritants, such as tobacco smoke, dust, fumes, and vapors. ? Have a weak immune system. ? Have a respiratory condition such as asthma. What are the signs or symptoms? Symptoms of this condition include: ? A cough. ? Coughing up clear, yellow, or green mucus. ? Wheezing. ? Chest congestion. ? Shortness of breath. ? A fe (more content not included)... Normal [facility] ED Patient Summaryon 023 ED Patient Summary [address] [address] Patient Discharge Instructions Person Information Name: HARSH ARANGO Age: 32 Years Arrival Date: 10/19/2022 16:52:07 Discharge Diagnosis: Bronchitis Primary Care Physician: Joaquim Osuna DO Provider Information Primary Provider: Chucho Kown DO Advanced Novelty Chain Maker:None The exam and treatment you received in the Emergency Department were for an urgent problem and are not intended as complete care. It is important that you follow up with a doctor, nurse practitioner, or physician?s retail administrative assistant for ongoing care. If your symptoms become worse or you do not improve as expected and you are unable to reach your usual health care provider, you should return to the Emergency Department. We are available 24 hours a day. HARSH ARANGO has been given the following list of patient education materials, prescriptions and follow-up instructions: Follow-up Instructions: With: Address: Edmundo: Joaquim Painter, [address] [facility] [place] [address] (1) In 3 days 10/22/2022 Comments: Follow-up with your primary care provider in 3 to 5 days. If symptoms worsen, do not improve, or new symptoms arise please report back to emergency department for further evaluation. In the event that this physician does not participate in your insurance network, please consult with your insurance company to find a nearby participating provider. Patient Education Materials: Acute Bronchitis, Adult; Upper Respiratory Infection, Adult, Llct-tp-Mzwu A MESSAGE TO ALL PATIENTS REGARDING OPIOIDS PRESCRIPTION OPIOIDS: WHAT YOU NEED TO KNOW Prescription opioids can be used to help relieve ubmmxdrd-sh-nizpqg pain and are often prescribed following a surgery or injury, or for certain health conditions. These medications can be an important part of the treatment but also come with serious risks. It is important to work with your healthcare provider to make sure you are getting the safest, most effective care. WHAT ARE THE RISKS AND SIDE EFFECTS OF OPIOID USE? Prescription opioids carry serious risks of addiction and overdose, especially with prolonged use. An opioid overdose, often marked by slowed breathing, can cause sudden . The use of prescription opioids can have a number of side effects as well, even when taken as directed: ? Tolerance?meaning you might need to take more of the medication for the same pain relief ? Physical dependence?meaning you have symptoms of withdrawal when a medication is stopped ? Increased sensitivity to pain ? Constipation ? Nausea, vomiting, and dry mouth ? Sleepiness and dizziness ? Confusion ? Depression ? Low levels of testosterone that can result in lower sex drive, energy, and strength ? Itching and sweating RISKS ARE GREATER WITH: ? History of drug misuse, substance use disorder, or overdose ? Mental health conditions (such as depression or anxiety) ? Sleep apnea ? Older age (65 years and older) ? Avoid alcohol while taking prescription opioids. Also, unless specifically advised by your health care provider, medications to avoid include: ? Benzodiazepines (such as Xanax or Valium) ? Muscle relaxants (such as Soma or Flexeril) ? Hypnotics (such as Ambien or Lunesta) ? Other prescription opioids KNOW YOUR OPTIONS Talk to your health care provider about ways to manage your pain that don?t involve prescription opioids. Some of these options may actually work better and have fewer risks and side effects. Options may include: ? Pain relievers such as acetaminophen, ibuprofen, and naproxen ? Some medication that are also used for depression or seizures ? Physical therapy and exercise ? Cognitive behavioral therapy, a psychological, goal-directed approach, in which patients learn how to modify physical, behavioral, and emotional triggers of pain and stress. IF YOU ARE PRESCRIBED OPIOIDS FOR PAIN: ? Never take opioids in greater amounts or more often than prescribed. ? Follow up with your primary health care provider. o Work together to create a plan on how to manage your pain. o Talk about ways to help manage your pain that don?t involve prescription opioids. o Talk about any and all concerns and side effects. ? Help prevent misuse and abuse o Never sell or share prescription opioids. o Never use another person?s prescription opioids. ? Store prescription opioids in a secure place and out of reach of others (this may include visitors, children, friends, and family). ? Safely dispose of unused prescription opioids: Find your community drug take-back program or your pharmacy mail-back program, or flush them down the toilet, following guidance from the Food and Drug Administration (www.fda.gov/Drugs/R esourcesForYou). ? Visit www.cdc.gov/drugover dose to learn about the risk (more content not included)... Normal [facility] MICRO OTHER TESTSOrdered By: Tamar Banks on 10-19-2022 Rapid COV Int NEG Ctl Pass (10/19/22 5:12 PM) Normal [facility] [place] COV Int POS Ctl Pass (10/19/22 5:12 PM) Normal [facility] [place] SARS-CoV+SARS-CoV-2 (COVID-19) Ag IA.rapid Ql (Resp) Not Detected (10/19/22 5:12 PM) Normal Not Detected [facility] [place] Antigen [place] [place] 10-19-2022 Rapid COV Int NEG Ctl Pass Normal [facility] Comment on above: Performed By: #### 2 [id number] #### [facility] [address] [place] [address] Rapid COV Int POS Ctl Pass Normal [facility] Comment on above: Performed By: #### 2 [id number] #### [facility] [address] [place] [address] SARS-CoV+SARS-CoV-2 (COVID-19) Ag IA.rapid Ql (Resp) Not detected Normal Not Detected [facility] Comment on above: Result Comment: The Hands? System for Rapid Detection of SARS-CoV-2 is a chromatographic digital immunoassay intended for the direct and qualitative detection of SARS-CoV-2 nucleocapsid antigens in nasal swabs from individuals who are suspected of COVID-19 by their healthcare provider within the first five days of the onset of symptoms. Negative results should be treated as presumptive, do not rule out SARS-CoV-2 infection and should not be used as the sole basis for treatment or patient management decisions, including infection control decisions. Negative results should be considered in the context of a patient?s recent exposures, history and the presence of clinical signs and symptoms consistent with COVID-19, and confirmed with a molecular assay, if necessary, for patient management. For in vitro diagnostic use. In the [place], only for use under an Emergency Use Authorization. In the [place], this test has not been FDA cleared or approved; this test has been authorized by FDA under an EUA for use by authorized laboratories; use by laboratories certified under the CLIA, 42 U.S.C. ?263a, that meet requirements to perform moderate, high, or waived complexity tests and at the Point of Care (POC), i.e., in patient care settings operating under a CLIA Certificate of Waiver, Certificate of Compliance, or Certificate of Accreditation. This test has been authorized only for the detection of proteins from SARS-CoV-2, not for any other viruses or pathogens; and, in the [place], this test is only authorized for the duration of the declaration that circumstances exist justifying the authorization of emergency use of in vitro diagnostics for detection and/or diagnosis of the virus that causes COVID-19 under Section 564(b)(1) of the Act, 21 U.S.C. ? 360bbb-3(b)(1), unless the authorization is terminated or revoked sooner. Performed By: #### 2 [id number] #### [facility] [address] [place] [address] ADMITTED TO INTENSIVE CARE UNIT FOR CONDITION OF INTEREST:FIND:PT: NO Normal [facility] Comment on above: Performed By: #### 2 [id number] #### [facility] [address] [place] [address] EMPLOYED IN A HEALTHCARE SETTING:FIND:PT: NO Normal [facility] Comment on above: Performed By: #### 2 [id number] #### [facility] [address] [place] [address] FIRST TEST FOR CONDITION OF INTEREST:FIND:PT: NO Normal [facility] Comment on above: Performed By: #### 2 [id number] #### [facility] [address] [place] [address] HAS SYMPTOMS RELATED TO CONDITION OF INTEREST:FIND:PT: YES Normal [facility] Comment on above: Performed By: #### 2 [id number] #### [facility] [address] [place] [address] HOSPITALIZED FOR CONDITION OF INTEREST:FIND:PT: NO Normal [facility] Comment on above: Performed By: #### 2 [id number] #### [facility] [address] [place] [address] STATUS:FIND:PT: NO Normal [facility] Comment on above: Performed By: #### 2 [id number] #### [facility] [address] [place] [address] RESIDES IN A CONGREGATE CARE SETTING:FIND:PT: NO Normal [facility] Comment on above: Performed By: #### 2 [id number] #### [facility] [address] [place] [address] CBC AUTO DIFFon 10-17-2021 BASO # 0.0 103/ul Normal 0.0-0.1 [facility] Comment on above: Performed By: #### C BC #### [facility] [address] [place] [address] Dr. Marianne Mojica Basophils/100 WBC (Bld) 0.4 % Normal 0.2-2.0 [facility] Comment on above: Performed By: #### C BC #### [facility] [address] [place] [address] Dr. Marianne Mojica EO # 0.1 103/ul Normal 0.0-0.7 [facility] Comment on above: Performed By: #### C BC #### [facility] [address] [place] [address] Dr. Marianne Mojica Eosinophils/100 WBC (Bld) 1.1 % Normal 0.9-7.0 [facility] Comment on above: Performed By: #### C BC #### [facility] [address] [place] [address] Dr. Marianne Mojica Erythrocyte distribution width (RBC) [Ratio] 13.2 % Normal 11.0-15.0 [facility] Comment on above: Performed By: #### C BC #### [facility] [address] [place] [address] Dr. Marianne Mojica Hematocrit (Bld) [Volume fraction] 33.5 % Critically low 36.0-48.0 [facility] Comment on above: Performed By: #### C BC #### [facility] [address] [place] [address] Dr. Marianne Mojica Hemoglobin (Bld) [Mass/Vol] 11.1 g/dL Critically low 12.0-16.0 [facility] Comment on above: Performed By: #### C BC #### [facility] [address] [place] [address] Dr. Marianne Mojica IG # 0.05 10e3/ul Critically high 0.00-0.03 [facility] Comment on above: Performed By: #### C BC #### [facility] [address] [place] [address] Dr. Marianne Mojica IG % 0.5 % Normal 0.0-0.5 [facility] Comment on above: Performed By: #### C BC #### [facility] [address] [place] [address] Dr. Marianne Mojica LYMPH # 2.8 103/ul Normal 1.2-3.8 [facility] Comment on above: Performed By: #### C BC #### [facility] [address] [place] [address] Dr. Marianne Mojica Lymphocytes/100 WBC (Bld) 29.9 % Normal 20.5-60.0 [facility] Comment on above: Performed By: #### C BC #### [facility] [address] [place] [address] Dr. Marianne Mojica MANUAL DIFF REQ NO Normal [facility] Comment on above: Performed By: #### C BC #### [facility] [address] [place] [address] Dr. Marianne Mojica MCH (RBC) [Entitic mass] 31.6 pg Normal 26.7-34.0 [facility] Comment on above: Performed By: #### C BC #### [facility] [address] [place] [address] Dr. Marianne Mojica MCHC (RBC) [Mass/Vol] 33.1 g/dL Normal 29.9-35.2 [facility] Comment on above: Performed By: #### C BC #### [facility] [address] [place] [address] Dr. Marianne Mojica MCV (RBC) [Entitic vol] 95.4 fL Normal 81.0-99.0 [facility] Comment on above: Performed By: #### C BC #### [facility] [address] [place] [address] Dr. Marianne Mojica MONO # 0.7 103/ul Normal 0.3-0.8 [facility] Comment on above: Performed By: #### C BC #### [facility] [address] [address] [address] Marianne Mojica Monocytes/100 WBC (Bld) 7.3 % Normal 1.7-12.0 [facility] Comment on above: Performed By: #### C BC #### [facility] [address] [address] [address] Marianne Mojica NEUT # 5.6 103/ul Normal 1.4-6.5 [facility] Comment on above: Performed By: #### C BC #### [facility] [address] [place] [address] Dr. Marianne Mojica Neutrophils/100 WBC (Bld) 60.8 % Normal 43.0-75.0 [facility] Comment on above: Performed By: #### C BC #### [facility] [address] [place] [address] Dr. Marianne Mojica Platelet mean volume (Bld) [Entitic vol] 9.8 fL Normal 9.5-13.5 [facility] Comment on above: Performed By: #### C BC #### [facility] [address] [place] [address] Dr. Marianne Mojica PLT 188 103/ul Normal 150-450 [facility] Comment on above: Performed By: #### C BC #### [facility] [address] [place] [address] Dr. Marianne Mojica RBC 3.51 106/ul Critically low 4.20-5.40 [facility] Comment on above: Performed By: #### C BC #### [facility] [address] [place] [address] Dr. Marianne Mojica WBC 9.2 103/ul Normal 4.0-11.0 [facility] Comment on above: Performed By: #### C BC #### [facility] [address] [place] [address] Dr. Marianne Mojica CBC AUTO DIFFon 10-15-2021 BASO # 0.0 103/ul Normal 0.0-0.1 [facility] Comment on above: Performed By: #### C BC #### [facility] [address] [address] [address] Marianne Mojica Basophils/100 WBC (Bld) 0.2 % Normal 0.2-2.0 [facility] Comment on above: Performed By: #### C BC #### [facility] [address] [address] [address] Marianne Mojica EO # 0.1 103/ul Normal 0.0-0.7 [facility] Comment on above: Performed By: #### C BC #### [facility] [address] [address] [address] Marianne Mojica Eosinophils/100 WBC (Bld) 0.6 % Critically low 0.9-7.0 [facility] Comment on above: Performed By: #### C BC #### [facility] [address] [place] [address] Dr. Marianne Mojica Erythrocyte distribution width (RBC) [Ratio] 13.2 % Normal 11.0-15.0 [facility] Comment on above: Performed By: #### C BC #### [facility] [address] [place] [address] Dr. Marianne Mojica Hematocrit (Bld) [Volume fraction] 37.2 % Normal 36.0-48.0 [facility] Comment on above: Performed By: #### C BC #### [facility] [address] [place] [address] Dr. Marianne Mojica Hemoglobin (Bld) [Mass/Vol] 12.2 g/dL Normal 12.0-16.0 [facility] Comment on above: Performed By: #### C BC #### [facility] [address] [place] [address] Dr. Marianne Mojica IG # 0.04 10e3/ul Critically high 0.00-0.03 [facility] Comment on above: Performed By: #### C BC #### [facility] [address] [place] [address] Dr. Marianne Mojica IG % 0.4 % Normal 0.0-0.5 [facility] Comment on above: Performed By: #### C BC #### [facility] [address] [place] [address] Dr. Marianne Mojica LYMPH # 2.6 103/ul Normal 1.2-3.8 [facility] Comment on above: Performed By: #### C BC #### [facility] [address] [place] [address] Dr. Marianne Mojica Lymphocytes/100 WBC (Bld) 27.0 % Normal 20.5-60.0 [facility] Comment on above: Performed By: #### C BC #### [facility] [address] [place] [address] Dr. Marianne Mojica MANUAL DIFF REQ NO Normal [facility] Comment on above: Performed By: #### C BC #### [facility] [address] [place] [address] Dr. Marianne Mojica MCH (RBC) [Entitic mass] 31.1 pg Normal 26.7-34.0 [facility] Comment on above: Performed By: #### C BC #### [facility] [address] [place] [address] Dr. Marianne Mojica MCHC (RBC) [Mass/Vol] 32.8 g/dL Normal 29.9-35.2 [facility] Comment on above: Performed By: #### C BC #### [facility] [address] [place] [address] Dr. Marianne Mojica MCV (RBC) [Entitic vol] 94.9 fL Normal 81.0-99.0 [facility] Comment on above: Performed By: #### C BC #### [facility] [address] [place] [address] Dr. Marianne Mojica MONO # 0.8 103/ul Normal 0.3-0.8 [facility] Comment on above: Performed By: #### C BC #### [facility] [address] [place] [address] Dr. Marianne Mojica Monocytes/100 WBC (Bld) 7.8 % Normal 1.7-12.0 [facility] Comment on above: Performed By: #### C BC #### [facility] [address] [place] [address] Dr. Marianne Mojica NEUT # 6.2 103/ul Normal 1.4-6.5 [facility] Comment on above: Performed By: #### C BC #### [facility] [address] [place] [address] Dr. Marianne Mojica Neutrophils/100 WBC (Bld) 64.0 % Normal 43.0-75.0 [facility] Comment on above: Performed By: #### C BC #### [facility] [address] [place] [address] Dr. Marianne Mojica Platelet mean volume (Bld) [Entitic vol] 10.5 fL Normal 9.5-13.5 [facility] Comment on above: Performed By: #### C BC #### [facility] [address] [place] [address] Dr. Marianne Mojica PLT 210 103/ul Normal 150-450 [facility] Comment on above: Performed By: #### C BC #### [facility] [address] [place] [address] Dr. Marianne Mojica RBC 3.92 106/ul Critically low 4.20-5.40 [facility] Comment on above: Performed By: #### C BC #### [facility] [address] [place] [address] Dr. Marianne Mojica WBC 9.7 103/ul Normal 4.0-11.0 [facility] Comment on above: Performed By: #### C BC #### [facility] [address] [place] [address] Dr. Marianne Mojica [facility] SARS-CoV-2 (COVID-19) RNA VIRA+probe Ql (Unsp spec) Not detected Normal NOT DETECTED [facility] Comment on above: Result Comment: When diagnostic testing is negative, the possibility of a false negative should be considered in the context of a patient's recent exposures and the presence of clinical signs and symptoms consistent with SARS-CoV-2. This test is not yet approved or cleared by the [place] FDA. When there are no FDA-approved or cleared tests available, and other criteria are met, FDA can make tests available under an emergency access mechanism called an Emergency Use Authorization (EUA). The EUA for this test is supported by the [employer] of Health and Human Service's declaration that circumstances exist to justify the emergency use of in vitro diagnostics for the detection and/or diagnosis of the virus that causes COVID-19. This EUA will remain in effect for the duration of the COVID-19 declaration justifying emergency of IVDs, unless it is terminated or revoked by the FDA (after which the test may no longer be used). Performed By: #### R PRQ #### [facility] Laboratory [address] [place] [address] DRUG SCREEN RAPID (URINE)on 10-15-2021 AMP Negative Normal NEGATIVE [facility] Comment on above: Performed By: #### R PRQ #### [facility] [address] [place] [address] Carlos Della BAR Negative Normal NEGATIVE [facility] Comment on above: Performed By: #### R PRQ #### [facility] [address] [place] [address] Della BUP Negative Normal NEGATIVE [facility] Comment on above: Performed By: #### R PRQ #### [facility] [address] [place], [place] [address]en BZO Negative Normal NEGATIVE [facility] Comment on above: Performed By: #### R PRQ #### [facility] [address] [place], [place] [address] BREE Negative Normal NEGATIVE [facility] Comment on above: Performed By: #### R PRQ #### [facility] [address] [place] [address] CUT-OFFS SEE BELOW Normal [facility] Comment on above: Result Comment: AMP (Amphetamine): 500ng/mL, BAR (Barbituates): 200 ng/mL, BZO (Benzodiazepines): 150 ng/mL, BUP (Buprenorphine): 10 ng/mL, BREE (Cocaine): 150 ng/mL, mAMP (Methamphetamine): 500 ng/mL, MTD (Methadone): 200 ng/mL, OPI (Opiates): 100 ng/mL, OXY (Oxycodone): 100 ng/mL, PCP (Phencyclidine): 25 ng/mL, PPX (Propoxyphene): 300 ng/mL, THC (Cannabinoids): 50 ng/mL, TCA (Trycyclic Antidepressants): 300 ng/mL Performed By: #### R PRQ #### [facility] [address] [place] [address] DRUG CUT HEADER DRUG CLASS TEST SYSTEM CUT-OFF CONCENTRATIONS ARE FOLLOWS: Normal [facility] Comment on above: Performed By: #### R PRQ #### [facility] [address] [place] [address] Carlos Della mAMP Negative Normal NEGATIVE [facility] Comment on above: Performed By: #### R PRQ #### [facility] [address] [place] [address] Carlos Della MTD Negative Normal NEGATIVE [facility] Comment on above: Performed By: #### R PRQ #### [facility] [address] [place] [address] Carlos Della OPI Negative Normal NEGATIVE [facility] Comment on above: Performed By: #### R PRQ #### [facility] [address] [place] [address] Carlos Della OXY Negative Normal NEGATIVE [facility] Comment on above: Performed By: #### R PRQ #### [facility] [address] [place] [address] Carlos Della PCP Negative Normal NEGATIVE [facility] Comment on above: Performed By: #### R PRQ #### [facility] [address] [place], [place] [address] PPX Negative Normal NEGATIVE [facility] Comment on above: Performed By: #### R PRQ #### [facility] [address] [place] [address] Carlos Della TCA Negative Normal NEGATIVE [facility] Comment on above: Performed By: #### R PRQ #### [facility] [address] [place] [address] Carlos Hull THC Negative Normal NEGATIVE [facility] Comment on above: Performed By: #### R PRQ #### [facility] [address] [place] [address] Carlos Hull TYPE AND SCREENon 10-15-2021 TYPE AND SCREEN Negative Normal [facility] Comment on above: Performed By: #### R PRQ #### [facility] [address] [place] [address] Carlos Hull US PREG BIOPHY W NON STRESSo n 10-07-2021 US PREG BIOPHY W NON STRESS EXAMINATION: US PREG BIOPHY W NON STRESS HISTORY: Reduced movement COMPARISON: No relevant comparison available. TECHNIQUE: Ultrasound biophysical profile was performed. FINDINGS: BREATHING MOVEMENTS: 2.0 GROSS BODY MOVEMENTS: 2.0 TONE: 2.0 QUALITATIVE AMNIOTIC FLUID VOLUME: 2.0 PRESENTATION: Cephalic HEART RATE: 141.4 bpm bpm. AMNIOTIC FLUID VOLUME: 9.9 cm GESTATIONAL AGE: 37 weeks 6 days CONCLUSION: Total biophysical profile score 8.0. Electronically authenticated by: AYDE MIN Date: 2021-10-07 13:52 Normal [facility] CHLAMYDIA/GONOCOCCUS VIRA (SW AB/URINE/PAPon 10-06-2021 Chlamydia trachomatis, VIRA Negative Normal Negative [facility] Comment on above: Performed By: #### C T/NGNA #### [facility] [address] [place] [address] Dr. Marianne Mojica Neisseria gonorrhoeae, VIRA Negative Normal Negative [facility] Comment on above: Performed By: #### C T/NGNA #### [facility] [address] [place] [address] Dr. Marianne Mojica VAGINITIS/VAGINOSIS DNA PROB Travon 10-04-2021 Tory species Negative Normal Negative [facility] Comment on above: Performed By: #### R UBIGG #### [facility] [address] [place] [address] Carlosgaurang Hull Gardnerella vaginalis Negative Normal Negative [facility] Comment on above: Performed By: #### R UBIGG #### [facility] [address] [place] [address] Carlos Hull Trichomonas vaginalis Negative Normal Negative [facility] Comment on above: Performed By: #### R UBIGG #### [facility] [address] [place] [address] Carlos Hull GROUP B STREP CULTUREon 09-16 S. agalactiae Ag Ql (Unsp spec) Culture Observations: NEGATIVE FOR GROUP B STREPTOCOCCUS. Normal [facility] Comment on above: Performed By: #### G BSCX #### [facility] [address] [place] [address] Dr. Marianne Mojica US PREG PLACENTAon US PREG PLACENTA EXAMINATION: US PREG PLACENTA HISTORY: Placenta previa without hemorrhage COMPARISON: Ultrasound anatomy 06/04/2021 FINDINGS: PLACENTA: Posterior with lower margin 2.5 cm from internal os. Several small anechoic areas within placenta favoring venous lakes. CERVIX LENGTH: 4.6 cm in length; closed. HEART RATE: 126 bpm OTHER: None. IMPRESSION: 1. Posterior placenta which is no longer low-lying. Electronically authenticated by: AYDE MIN Date: 2021-07-29 12:05 Normal [facility] GLUCOSE - 1HRon 07-11-2021 Glucose [Mass/Vol] 71 mg/dL Critically low 74-106 [facility] Comment on above: Performed By: #### R UBIGG #### [facility] [address] [place] [address] Carlos Hull HEMOGRAM AND PLATELon 2020 Hematocrit (Bld) [Volume fraction] 36.2 % Normal 36.0-48.0 [facility] Comment on above: Performed By: #### R UBIGG #### [facility] [address] [place] [address] Carlos Della Hemoglobin (Bld) [Mass/Vol] 11.8 g/dL Critically low 12.0-16.0 [facility] Comment on above: Performed By: #### R UBIGG #### [facility] [address] [place] [address] Carlos Hull MCH (RBC) [Entitic mass] 31.4 pg Normal 26.7-34.0 [facility] Comment on above: Performed By: #### R UBIGG #### [facility] [address] [id number] Carlos Hull MCHC (RBC) [Mass/Vol] 32.6 g/dL Normal 29.9-35.2 [facility] Comment on above: Performed By: #### R UBIGG #### [facility] [address] [id number] Carlos Hull MCV (RBC) [Entitic vol] 96.3 fL Normal 81.0-99.0 [facility] Comment on above: Performed By: #### R UBIGG #### [facility] [address] [id number] Carlos Hull PLT 234 103/ul Normal 150-450 [facility] Comment on above: Performed By: #### R UBIGG #### [facility] [address] [address] Carlos Hull RBC 3.76 106/ul Critically low 4.20-5.40 [facility] Comment on above: Performed By: #### R UBIGG #### [facility] [address] [id number] Carlos Hull WBC 9.1 103/ul Normal 4.0-11.0 [facility] Comment on above: Performed By: #### R UBIGG #### [facility] [address] [place], [place] [address] Carlos Hull US PREG ANATOMY SINGLEon US PREG ANATOMY SINGLE EXAMINATION: US P REG ANATOMY SINGLE HISTORY: screening COMPARISON: No relevant comparison available. TECHNIQUE: Transabdominal sonographic examination was performed for obstetrical and evaluation. FINDINGS: Number: 1 Heart Rate: 145 H.B. /min Amniotic Fluid Volume: Subjectively normal Placental Location: Fundal with long-standing posterior extension with lower margin 0.9 cm from the internal os. Cervix Length: 5.0 cm, closed. ANATOMY: Normal Structures -cerebellum, choroid plexus, cisterna magna, lateral cerebral ventricles, orbits, midline falx, hard palate, four-chamber heart, RVOT, LVOT, stomach, kidneys, bladder, umbilical cord insertion into abdomen, three-vessel cord, cervical spine, thoracic spine, lumbar spine, sacral spine, right upper extremity, left upper extremity, right lower extremity, left lower extremity. SUBOPTIMALLY SEEN: None ABNORMALITIES: None BIOMETRY: BPD: 4.6 cm 20 weeks 0 days HC: 17.3 cm 19 weeks 5 days AC: 15.0 cm 20 weeks 1 days FL: 3.3 cm 20 weeks 2 days EFW: 340 g; 59th percentile by ultrasound and expected FL/AC: 0.816597 FL/BPD: 0.895481 HC/AC: 1.237253 GESTATIONAL AGE: Age by EDC: 20 weeks, 0 days NELA by EDC: 10/22/2021 Age by current US: 20 weeks, 0 days NELA by current US: 10/22/2021 IMPRESSION: 1. Single live intrauterine with growth detailed above. 2. Low-lying fundal/posterior placenta. Electronically authenticated by: AYDE MIN Date: 2021-06-04 12:07 Normal [facility] AFP MATERNAL FOR SPINA BIFID Aon 05-21-2021 AFP MoM 0.95 Normal [facility] Comment on above: Performed By: #### A FPMAT #### [facility] [address] [address] Carlos Hull AFP Value 37.7 ng/mL Normal [facility] Comment on above: Performed By: #### A FPMAT #### [facility] [address] [address] Carlosgaurang Hull AFP, Serum for Spina Bifida Report Normal [facility] Comment on above: Performed By: #### A FPMAT #### [facility] [address] [phone] Carlos Della Comment Comment Normal [facility] Comment on above: Result Comment: Shekhar Lincoln, Ph.D., [facility] Director . References: Available Upon Request. . Multiples Of Median Cutoffs For AFP Elevations Sommer 2.5 Black 2.8 IDD 2.0 Twins 4.5 Abbreviation Definitions IDD - Insulin Dep Diabetes OSBR - Open Spina Bifida Risk . For further inquiries contact [facility] at [phone]. Performed By: #### A FPMAT #### [facility] [address] [address] Carlos Hull Gest Age Collection Date 17.6 weeks Normal [facility] Comment on above: Performed By: #### A FPMAT #### [facility] [address] [place] [address] Carlos Hull Gestat, Age Based on Ultrasound Normal [facility] Comment on above: Result Comment: 11:0 on 04/02/2021 Recalculations are not recommended when gestational dating by LMP and ultrasound are within 10 days. Performed By: #### A FPMAT #### [facility] [address] [place] [address] Carlos Della Insulin Dep Diabetes No Normal [facility] Comment on above: Performed By: #### A FPMAT #### [facility] [address] [place] [address] Carlos Hull Interpretation Comment Normal [facility] Comment on above: Result Comment: Inte rpretation: Screen Negative . This result is screen negative for OSB. The AFP MoM calculated is based on the gestational age provided. MS-AFP can identify up to 80% of open neural tube defects. Closed neural tube defects and some open defects may not be detected by this test. This test does not screen for Down Syndrome or Trisomy 18. If screening for Down Syndrome or Trisomy 18 is desired, contact [facility] [employer] [facility] to discuss available options. The [place] [employer] recommends amniocentesis be offered to women age 35 and older. Performed By: #### A FPMAT #### [facility] [address] [place] [address] Carlos Hull [age] Normal [facility] Comment on above: Performed By: #### A FPMAT #### [facility] [address] [place] [address] Carlos Hull Multiple Gestation No Normal [facility] Comment on above: Performed By: #### A FPMAT #### [facility] [address] [place] [address] Carlos Hull OSBR Risk 1 [place] [id number] Normal [facility] Comment on above: Performed By: #### A FPMAT #### [facility] [address] [place], [place] [address] Carlos Hull PDF . Normal [facility] Comment on above: Performed By: #### A FPMAT #### [facility] [address] [place], [place] [address] Carlos Hull Race Normal [facility] Comment on above: Performed By: #### A FPMAT #### [facility] [address] [place], [place] [address] Carlos Hull Test Results: Negative Normal [facility] Comment on above: Performed By: #### A FPMAT #### [facility] [address] [address] Carlos Hull Cult,Urineon 05-01-2021 Cult,Urine Specimen Description .Random Urine Special Requests NOT REPORTED Culture NO GROWTH Report Status FINAL 05/01/2021 Normal [facility] Comment on above: Performed By: #### U RC #### [facility] [address] [place] [address] Network Security Engineer: Sekou Fraser MD [facility] [address] [place] [address] Network Security Engineer: Campos Chandra MD US PREG PLACENTAon US PREG PLACENTA EXAM: US PREG PLACENTA HISTORY: Abnormal vaginal bleeding. COMPARISON: Transvaginal pelvic ultrasound 04/02/2021. TECHNIQUE: Transvaginal images obtained. FINDINGS: Images of the uterus demonstrate a single viable . heart tones are 141 bpm. BPD is 3.1 cm, head circumference 11.3 cm, abdominal circumference 9.5 cm and femur length is 1.7 cm. Estimated weight is 122 g for a gestational age of 15 weeks and 4 days. Placenta is posterior and covers the internal os of the cervix completely. No visualization of either ovary. IMPRESSION: 1. Placenta previa noted. 2. Single viable uterine , estimated gestational age of 15 weeks and 4 days. Electronically authenticated by: YURIY WISE Date: 2021-04-30 23:35 Normal [facility] ABO/RHOrdered By: Nathaly Berry s on 04-30-2021 ABO/Rh Positive [facility] Work Phone: [facility] Work Phone: ABO/Rh(D)on 04-30-2021 ABO/Rh(D) Positive Normal [facility] Comment on above: Performed By: #### A [facility] #### [facility] [address] [place] [address] Network Security Engineer: Campos Chandra MD CBC Auto DifferentialOrdered By: Nathaly Jurado on 04-30-2021 Absolute Eos # 0.00 [facility] Work Phone: Absolute Immature Granulocyte NOT REPORTED [facility] [employer] Work Phone: Absolute Lymph # 2.70 [facility] [employer] [facility] Work Phone: Absolute Alcorn # 0.50 [facility] Work Phone: Basophils (Bld) [#/Vol] 0.00 10*3/uL [employer] Work Phone: Basophils/100 WBC (Bld) 0 % 0 - 2 % [employer] Work Phone: Differential Type YES [facility] [employer] Work Phone: Eosinophils/100 WBC (Bld) 0 % 0 - 5 % [facility] Work Phone: Hematocrit (Bld) [Volume fraction] 36.7 % 36 - 46 % [employer] Work Phone: Hemoglobin.gastrointesti nal spec 1 Ql (Stl) 12.5 g/dL 12.0 - 16.0 g/dL [facility] Work Phone: Immature Granulocytes NOT REPORTED 0 % [employer] Work Phone: Lymphocytes/100 WBC (Bld) 30 % 15 - 40 % [employer] Work Phone: MCH (RBC) [Entitic mass] 30.6 pg 26 - 34 pg [employer] Phone: MCHC (RBC) [Mass/Vol] 34.2 g/dL 31 - 37 g/dL [facility] [employer] Phone: MCV (RBC) [Entitic vol] 89.7 fL 80 - 100 fL [employer] Phone: Monocytes/100 WBC (Bld) 5 % 4 - 8 % [employer] Work Phone: NRBC Automated NOT REPORTED per 100 WBC [facility] Work Phone: Platelet distribution width (Bld) [Ratio] 12.8 % 12.1 - 15.2 % [employer] Phone: Platelet Estimate NOT REPORTED [employer] Phone: Platelet mean volume (Bld) [Entitic vol] NOT REPORTED 6.0 - 12.0 fL [employer] Phone: Platelets (Bld) [#/Vol] 271 10*3/uL [employer] Phone: RBC (Bld) [#/Vol] 4.09 10*6/uL 4.0 - 5.2 m/uL [employer] Phone: RBC (Bld) [#/Vol] NOT REPORTED [employer] Phone: Segmented neutrophils/100 WBC (Bld) 65 % 47 - 75 % [employer] Phone: Segs Absolute 5.70 [employer] Work Phone: WBC (Bld) [#/Vol] 8.9 10*3/uL [employer] Phone: WBC (Bld) [#/Vol] NOT REPORTED [employer] Phone: [employer] Phone: CBC with Diffon 04-30-2021 Abs. Basophil 0.00 k/uL Normal 0.0-0.2 [facility] Comment on above: Performed By: #### Jaime Faria CMPX, CDP #### [facility] [address] [place], [place] [id number] Network Security Engineer: Campos Chandra MD Abs.Neutrophil (Seg) 5.70 k/uL Normal 2.5-7.0 [facility] Comment on above: Performed By: #### Jaime Faria CMPX, CDP #### [facility] [address] [place], [place] [id number] Network Security Engineer: Campos Chandra MD Auto Diff Performed YES Normal [facility] Comment on above: Performed By: #### Jaime Faria CMPX, CDP #### [facility] [address] [place] [id number] Network Security Engineer: Campos Chandra MD Basophils/100 WBC (Bld) 0 % Normal 0-[address] [facility] Comment on above: Performed By: #### Jaime Faria CMPX, CDP #### [facility] [address] [place], [place] [phone] Network Security Engineer: Campos Chandra MD Eosinophils (Bld) [#/Vol] 0.00 10*3/uL Normal 0.0-0.4 [facility] Comment on above: Performed By: #### Jaime Faria CMPX, CDP #### [facility] [address] [place], [place] [phone] Network Security Engineer: Campos Chandra MD Eosinophils/100 WBC (Bld) 0 % Normal 0-5 [facility] Comment on above: Performed By: #### Jaime Faria CMPX, CDP #### [facility] [address] [place], [place] [phone] Network Security Engineer: Campos Chandra MD Erythrocyte distribution width (RBC) [Ratio] 12.8 % Normal 12.1-15.2 [facility] Comment on above: Performed By: #### Jaime Faria CMPX, CDP #### [facility] [address] [place] [address] Network Security Engineer: Campos Chandra MD Hematocrit (Bld) [Volume fraction] 36.7 % Normal 36-46 [facility] Comment on above: Performed By: #### Jaime Faria, CMPX, CDP #### [facility] [address] [place] [address] Network Security Engineer: Campos Chandra MD Hemoglobin (Bld) [Mass/Vol] 12.5 g/dL Normal 12.0-16.0 [facility] Comment on above: Performed By: #### Jaime Faria CMPX, CDP #### [facility] [address] [place] [address] Network Security Engineer: Campos Chandra MD Lymphocytes (Bld) [#/Vol] 2.70 10*3/uL Normal 1.0-4.8 [facility] Comment on above: Performed By: #### Jaime Faria CMPX, CDP #### [facility] [address] [place] [address] Network Security Engineer: Campos Chandra MD Lymphocytes/100 WBC (Bld) 30 % Normal 15-40 [facility] Comment on above: Performed By: #### Jaime Faria CMPX, CDP #### [facility] [address] [place] [address] Network Security Engineer: Campos Chandra MD MCH (RBC) [Entitic mass] 30.6 pg Normal 26-34 [facility] Comment on above: Performed By: #### Jaime Faria CMPX, CDP #### [facility] [address] [place] [address] Network Security Engineer: Campos Chandra MD MCHC (RBC) [Mass/Vol] 34.2 g/dL Normal 31-37 [facility] Comment on above: Performed By: #### Jaime Faria, CMPX, CDP #### [facility] [address] [place] [address] Network Security Engineer: Campos Chandra MD MCV (RBC) [Entitic vol] 89.7 fL Normal 80-100 M [facility] Comment on above: Performed By: #### M G, CMPX, CDP #### [facility] [address] [place], [place] [phone] Network Security Engineer: Campos Chandra MD Monocytes (Bld) [#/Vol] 0.50 10*3/uL Normal 0.0-1.0 [facility] Comment on above: Performed By: #### Jaime Faria, CMPX, CDP #### [facility] [address] [place], [place] [phone] Network Security Engineer: Campos Chandra MD Monocytes/100 WBC (Bld) 5 % Normal 4-8 [facility] Comment on above: Performed By: #### Jaime Faria, CMPX, CDP #### [facility] [address] [place], [place] [phone] Network Security Engineer: Campos Chandra MD Neutrophil (Seg) 65 % Normal 47-75 [facility] Comment on above: Performed By: #### Jaime Faria, CMPX, CDP #### [facility] [address] [place], [place] [phone] Network Security Engineer: Campos Chandra MD Platelets (Bld) [#/Vol] 271 10*3/uL Normal 140-450 [facility] Comment on above: Performed By: #### M G, CMPX, CDP #### [facility] [address] [place], [place] [phone] Network Security Engineer: Campos Chandra MD RBC (Bld) [#/Vol] 4.09 10*6/uL Normal 4.0-5.2 [facility] Comment on above: Performed By: #### Jaime G, CMPX, CDP #### [facility] [address] [place], [place] [phone] Network Security Engineer: Campos Chandra MD WBC (Bld) [#/Vol] 8.9 10*3/uL Normal 3.5-11.0 [facility] Comment on above: Performed By: #### M Bienvenido CMPX, CDP #### [facility] [address] [phone] Network Security Engineer: Campos Chandra MD Abs.Imm.Granulocyte NOT REPORTED Normal 0.00-0.30 [facility] Comment on above: Performed By: #### M Bienvenido CMPX, CDP #### [facility] [address] [place] [address] Network Security Engineer: Campos Chandra MD Immature Granulocyte NOT REPORTED Normal [facility] Comment on above: Performed By: #### Jaime Faria CMPX, CDP #### [facility] [address] [phone] Network Security Engineer: Campos Chandra MD MPV NOT REPORTED Normal 6.0-12.0 [facility] Comment on above: Performed By: #### Jaime Faria CMPX, CDP #### [facility] [address] [phone] Network Security Engineer: Campos Chandra MD NRBC Automated NOT REPORTED Normal [facility] Comment on above: Performed By: #### M Bienvenido CMPX, CDP #### [facility] [address] [phone] Network Security Engineer: Campos Chandra MD Platelet Estimate NOT REPORTED Normal [facility] Comment on above: Performed By: #### Jaime Faria CMPX, CDP #### [facility] [address] [phone] Network Security Engineer: Campos Chandra MD RBC morphology finding Nom (Bld) NOT REPORTED Normal [facility] Comment on above: Performed By: #### M Bienvenido CMPX, CDP #### [facility] [address] [place], [place] [phone] Network Security Engineer: Campos Chandra MD WBC Morphology NOT REPORTED Normal [facility] Comment on above: Performed By: #### Jaime Faria CMPX, CDP #### [facility] [address] [place], [place] [phone] Network Security Engineer: Campos Chandra MD Comp Metabolic Pr/rfx MGon 0 - Potassium [Moles/Vol] 3.5 mmol/L Low 3.7-5.3 [facility] Comment on above: Performed By: #### TORRIE Mcdonald, CDP #### [facility] [address] [place] [address] Network Security Engineer: Campos Chandra MD (cont.) Normal [facility] Comment on above: Result Comment: Aver age GFR for 30-39 years old: 107 mL/min/1.73sq m Chronic Kidney Disease: <60 mL/min/1.73sq m Kidney failure: <15 mL/min/1.73sq m eGFR calculated using average adult body mass. Additional eGFR calculator available at: http://www.[place].[facility]/multiple_crcl_2012.htm Performed By: #### TORRIE Mcdonald, CDP #### [facility] [address] [place] [address] Network Security Engineer: Campos Chandra MD Albumin [Mass/Vol] 3.8 g/dL Normal 3.5-5.2 [facility] Comment on above: Performed By: #### Jaime Faria CMPX, CDP #### [facility] [address] [place] [address] Network Security Engineer: Campos Chandra MD Alkaline Phos 56 U/L Normal 35-104 [facility] Comment on above: Performed By: #### Jaime Faria CMPX, CDP #### [facility] [address] [place], [place] [id number] Network Security Engineer: Campos Chandra MD ALT [Catalytic activity/Vol] 13 U/L Normal 5-33 [facility] Comment on above: Performed By: #### Jaime Faria CMPX, CDP #### [facility] [address] [place] [address] Network Security Engineer: Campos Chandra MD Anion gap [Moles/Vol] 10 mmol/L Normal 9-17 [facility] Comment on above: Performed By: #### Jaime Faria CMPX, CDP #### [facility] [address] [place], [place] [id number] Network Security Engineer: Campos Chandra MD AST [Catalytic activity/Vol] 16 U/L Normal <32 [facility] Comment on above: Performed By: #### Jaime Faria CMPX, CDP #### [facility] [address] [place] [address] Network Security Engineer: Campos Chandra MD Bilirubin [Mass/Vol] 0.23 mg/dL Low 0.30-1.20 [facility] Comment on above: Performed By: #### Jaime Faria CMPX, CDP #### [facility] [address] [place] [address] Network Security Engineer: Campos Chandra MD BUN/CRE Ratio 18 Normal 9-20 [facility] Comment on above: Performed By: #### Jaime Faria CMPX, CDP #### [facility] [address] [place] [address] Network Security Engineer: Campos Chandra MD Calcium [Mass/Vol] 9.2 mg/dL Normal 8.6-10.4 [facility] Comment on above: Performed By: #### Jaime Faria CMPX, CDP #### [facility] [address] [place], [place] 6277390 Network Security Engineer: Campos Chandra MD Chloride [Moles/Vol] 105 mmol/L Normal 98-107 [facility] Comment on above: Performed By: #### M Bienvenido, CMPX, CDP #### [facility] [address] [place], [place] [id number] Network Security Engineer: Campos Chandra MD CO2 [Moles/Vol] 23 mmol/L Normal 20-31 [facility] Comment on above: Performed By: #### M Bienvenido, CMPX, CDP #### [facility] [address] [place], [place] [id number] Network Security Engineer: Campos Chandra MD Creatinine [Mass/Vol] 0.44 mg/dL Low 0.50-0.90 [facility] Comment on above: Performed By: #### Jaime Faria, CMPX, CDP #### [facility] [address] [place], [place] 8160390 Network Security Engineer: Campos Chandra MD GFR, Amer >60 Normal >60 [facility] Comment on above: Performed By: #### Jaime Faria, CMPX, CDP #### [facility] [address] [place], [place] 1424690 Network Security Engineer: Campos Chandra MD GFR,non Amer >60 Normal >60 [facility] Comment on above: Performed By: #### Jaime Faria, CMPX, CDP #### [facility] [address] [place], [place] 7523690 Network Security Engineer: Campos Chandra MD Glucose [Mass/Vol] 90 mg/dL Normal 70-99 [facility] Comment on above: Performed By: #### M Bienvenido, CMPX, CDP #### [facility] [address] [place], [place] [id number] Network Security Engineer: Campos Chandra MD Protein [Mass/Vol] 7.0 g/dL Normal 6.4-8.3 [facility] Comment on above: Performed By: #### M G, CMPX, CDP #### [facility] [address] [place], [place] [id number] Network Security Engineer: Campos Chandra MD Sodium [Moles/Vol] 138 mmol/L Normal 135-144 [facility] Comment on above: Performed By: #### M G, CMPX, CDP #### [facility] [address] [place], [place] 9111090 Network Security Engineer: Campos Chandra MD Urea nitrogen [Mass/Vol] 8 mg/dL Normal 6-20 [facility] Comment on above: Performed By: #### M G, CMPX, CDP #### [facility] [address] [place], [place] [address]18690 Network Security Engineer: Campos Chandra MD Albumin/Glob Ratio NOT REPORTED Normal 1.0-2.5 [facility] Comment on above: Performed By: #### M G, CMPX, CDP #### [facility] [address] [place], [place] [id number] Network Security Engineer: Campos Chandra MD Staging: NOT REPORTED Normal [facility] Comment on above: Performed By: #### M G, CMPX, CDP #### [facility] [address] [place], [place] [id number] Network Security Engineer: aCmpos Chandra MD Comprehensive Metabolic Pane l w/ Reflex to MGOrdered By: Nathaly Patterson on 04-30-2021 Albumin [Mass/Vol] 3.8 g/dL 3.5 - 5.2 g/dL [facility] [employer] Phone: Albumin/Globulin Ratio NOT REPORTED [employer] Phone: ALP (Bld) [Catalytic activity/Vol] 56 U/L 35 - 104 U/L [employer] Phone: ALT [Catalytic activity/Vol] 13 U/L 5 - 33 U/L [employer] Phone: Anion gap [Moles/Vol] 10 mmol/L 9 - 17 mmol/L [employer] Phone: AST [Catalytic activity/Vol] 16 U/L <32 [employer] Phone: Bilirubin [Mass/Vol] 0.23 mg/dL Low 0.30 - 1.20 mg/dL [employer] Phone: Calcium [Mass/Vol] 9.2 mg/dL 8.6 - 10. 4 mg/dL [employer] Phone: Chloride [Moles/Vol] 105 mmol/L 98 - 10 7 mmol/L [employer] Phone: CO2 [Moles/Vol] 23 mmol/L 20 - 31 mmol/L [employer] Phone: Creatinine [Mass/Vol] 0.44 mg/dL Low 0.50 - 0.90 mg/dL [employer] Phone: Free PSA/Total PSA [Mass fraction] 7.0 g/dL 6.4 - 8.3 g/dL [employer] Phone: GFR >60 >60 mL/min [employer] Phone: GFR Non- >60 >60 mL/min [employer] Phone: GFR/1.73 sq M.predicted MDRD (S/P/Bld) [Vol rate/Area] [employer] Phone: Comment on above: Average GFR for 30-3 9 years old: 107 mL/min/1.73sq m Chronic Kidney Disease: <60 mL/min/1.73sq m Kidney failure: <15 mL/min/1.73sq m eGFR calculated using average adult body mass. Additional eGFR calculator available at: http://www.[place].[facility]/multiple_crcl_2012.htm GFR/1.73 sq M.predicted MDRD (S/P/Bld) [Vol rate/Area] NOT REPORTED [employer] Phone: Glucose [Mass/Vol] 90 mg/dL 70 - 99 mg/dL [facility] [employer] Phone: Interpretation and review of laboratory results Abnormal [facility] [employer] Phone: Potassium [Moles/Vol] 3.5 mmol/L Low 3.7 - 5.3 mmol/L [facility] [employer] Phone: Sodium [Moles/Vol] 138 mmol/L 135 - 144 mmol/L [facility] [employer] Phone: Urea nitrogen (BldV) [Mass/Vol] 8 mg/dL 6 - 20 mg/dL [facility] [employer] Phone: Urea nitrogen/Creatinine (Bld) [Mass ratio] 18 [facility] [employer] Phone: [facility] [employer] Phone: Drug Scr, Abuse, Uron 2020 Amphetamine(s),Ur Negative Normal NEG [facility] Comment on above: Result Comment: (Positive cutoff 500 ng/mL) Performed By: #### U MICAO, UA, DIOGENES #### [facility] [address] [place] [address] Network Security Engineer: Campos Chandra MD Barbiturate(s),Ur Negative Normal NEG [facility] Comment on above: Result Comment: (Positive cutoff 200 ng/mL) Performed By: #### U MICAO, UA, DIOGENES #### [facility] [address] [place] [id number] Network Security Engineer: Campos Chandra MD Benzodiazepine(s) Negative Normal NEG [facility] Comment on above: Result Comment: (Positive cutoff 150 ng/mL) Performed By: #### U MICAO, UA, DIOGENES #### [facility] [address] [place] [address] Network Security Engineer: Campos Chandra MD Cannabinoid(s),Ur Negative Normal NEG [facility] Comment on above: Result Comment: (Positive cutoff 50 ng/mL) Performed By: #### U MICAO, UA, DIOGENES #### [facility] [address] [place], [place] 0127690 Network Security Engineer: Campos Chandra MD Cocaine Metabolite Negative Normal NEG [facility] Comment on above: Result Comment: (Positive cutoff 150 ng/mL) Performed By: #### U MICAO, UA, DIOGENES #### [facility] [address] [place] [id number] Network Security Engineer: Campos Chandra MD Methadone Ql (U) Negative Normal NEG [facility] Comment on above: Result Comment: (Positive cutoff 200 ng/mL) Performed By: #### U MICAO, UA, DIOGENES #### [facility] [address] [place] [address] Network Security Engineer: Campos Chandra MD Methamphetamine, Ur Negative Normal [facility] Comment on above: Result Comment: (Positive cutoff 500 ng/mL) Performed By: #### U MICAO, UA, DIOGENES #### [facility] [address] [place], [place] 1285790 Network Security Engineer: Campos Chandra MD Opiate(s), Ur Negative Normal [facility] Comment on above: Result Comment: (Positive cutoff 100 ng/mL) Performed By: #### U MICAO, UA, DIOGENES #### [facility] [address] [place] [phone] Network Security Engineer: Campos Chandra MD Oxycodone, Urine Negative Normal NEG [facility] Comment on above: Result Comment: (Positive cutoff 100 ng/mL) Performed By: #### U MICAO, UA, DIOGENES #### [facility] [address] [place] [address] Network Security Engineer: Campos Chandra MD Phencyclidine, Ur Negative Normal NEG [facility] Comment on above: Result Comment: (Positive cutoff 25 ng/mL) Performed By: #### U MICAO, UA, DIOGENES #### [facility] [address] [place] [id number] Network Security Engineer: Campos Chandra MD Propoxyphene,Urine Negative Normal NEG [facility] Comment on above: Result Comment: (Positive cutoff 300 ng/mL) Performed By: #### U MICAO, UA, DIOGENES #### [facility] [address] [place] [address] Network Security Engineer: Campos Chandra MD Tricyclic antidepressants Screen Ql (U) Negative Normal NEG [facility] Comment on above: Result Comment: (Positive cutoff 300 ng/mL) Drug screen results are to be used for medical purposes only. All positive results are unconfirmed. Testing for employment or legal uses should be sent to a reference laboratory for confirmation. Performed By: #### U MICAO, UA, DIOGENES #### [facility] [address] [place] [address] Network Security Engineer: Campos Chandra MD Buprenorphrine, Ur NOT REPORTED Normal NEG [facility] Comment on above: Performed By: #### U MICAO, UA, DIOGENES #### [facility] [address] [place] [address] Network Security Engineer: Campos Chandra MD Interpretive Info NOT REPORTED Normal [facility] Comment on above: Performed By: #### U MICAO, UA, DIOGENES #### [facility] [address] [place] [address] Network Security Engineer: Campos Chandra MD MDMA, Urine NOT REPORTED Normal NEG [facility] Comment on above: Performed By: #### U MICAO, UA, DIOGENES #### [facility] [address] [place] [id number] Network Security Engineer: Campos Chandra MD Drug screen multi urineOrder ed By: Nathaly Patterson on 04-30-2021 Amphetamine Screen, Ur Negative NEGATIVE [facility] [employer] Work Phone: Comment on above: (Positive cutoff 500 ng/mL) Barbiturate Screen, Ur Negative NEGATIVE [facility] Work Phone: Comment on above: (Positive cutoff 200 ng/mL) Benzodiazepine Screen, Urine Negative NEGATIVE [facility] Work Phone: Comment on above: (Positive cutoff 150 ng/mL) Buprenorphine Urine NOT REPORTED NEGATIVE [facility] Work Phone: Cannabinoid Scrn, Ur Negative NEGATIVE [facility] Work Phone: Comment on above: (Positive cutoff 50 ng/mL) Cocaine Metabolite, Urine Negative NEGATIVE [facility] Work Phone: Comment on above: (Positive cutoff 150 ng/mL) MDMA, Urine NOT REPORTED NEGATIVE [facility] Work Phone: Methadone Screen, Urine Negative NEGATIVE [facility] Work Phone: Comment on above: (Positive cutoff 200 ng/mL) Methamphetamine, Urine Negative NEGATIVE [facility] Work Phone: Comment on above: (Positive cutoff 500 ng/mL) Opiates, Urine Negative NEGATIVE [facility] Work Phone: Comment on above: (Positive cutoff 100 ng/mL) Oxycodone Screen, Ur Negative NEGATIVE [facility] Work Phone: Comment on above: (Positive cutoff 100 ng/mL) Phencyclidine, Urine Negative NEGATIVE [facility] Work Phone: Comment on above: (Positive cutoff 25 ng/mL) Propoxyphene, Urine Negative NEGATIVE [facility] Work Phone: Comment on above: (Positive cutoff 300 ng/mL) Test Information NOT REPORTED [facility] Work Phone: Tricyclic Antidepressants, Urine Negative NEGATIVE [facility] Work Phone: Comment on above: (Positive cutoff 300 ng/mL) Drug screen results are to be used for medical purposes only. All positive results are unconfirmed. Testing for employment or legal uses should be sent to a reference laboratory for confirmation. [facility] Work Phone: HCG, Quanton 04-30-2021 HCG, Quant [id number] IU/L High <5 [facility] Comment on above: Result Comment: Non-preg premeno <=5 Postmeno <=8 Male <=3 If HCG results do not concur with clinical observations, additional testing to confirm results is recommended. Elevated results not associated with may be found in patients with other diseases such as tumors of the germ cells (testis, ovaries, etc.), bladder, pancreas, stomach, lungs, and liver. Performed By: #### B HCG #### [facility] [address] [place] [address] Network Security Engineer: Campos Chandra MD Magnesiumon 04-30-2021 Magnesium [Mass/Vol] 1.8 mg/dL Normal 1.6-2.6 [facility] Comment on above: Performed By: #### M G, CMPX, CDP #### [facility] [address] [place] [address] Network Security Engineer: Campos Chandra MD MagnesiumOrdered By: Nathaly liu on 04-30-2021 Magnesium [Mass/Vol] 1.8 mg/dL 1.6 - 2 .6 mg/dL [facility] Work Phone: [facility] Work Phone: Microscopic UrinalysisOrdere d By: Nathaly Patterson on 04-30-2021 - [facility] Work Phone: Amorphous, UA NOT REPORTED None [facility] Work Phone: Bacteria, UA NOT REPORTED None [facility] Work Phone: Casts UA NOT REPORTED /LPF [facility] Work Phone: Crystals, UA NOT REPORTED None /HPF [facility] Work Phone: Epithelial Cells UA NOT REPORTED /HPF [facility] Work Phone: Mucus, UA NOT REPORTED None [facility] Work Phone: Other Observations UA NOT REPORTED NOT REQ. M [facility] [employer] Work Phone: RBC, UA LOADED [facility] [employer] Work Phone: Renal Epithelial, UA NOT REPORTED 0 /HPF [facility] [employer] Work Phone: Trichomonas, UA NOT REPORTED None [facility] Work Phone: WBC, UA 2 TO 5 0 /HPF [facility] [employer] Work Phone: Yeast, UA NOT REPORTED None [facility] [employer] Phone: [facility] [employer] Phone: Urinalysis, Routineon 2020 Bilirubin, SemiQt,Ur Negative Normal NEG [facility] Comment on above: Performed By: #### U MICAO, UA, DIOGENES #### [facility] [address] [place] [phone] Network Security Engineer: Campos Chandra MD Blood, Urine 3+ Abnormal NEG [facility] Comment on above: Performed By: #### U MICAO, UA, DIOGENES #### [facility] [address] [place] [phone] Network Security Engineer: Campos Chandra MD Clarity (U) CLOUDY Abnormal CLEAR [facility] Comment on above: Performed By: #### U MICAO, UA, DIOGENES #### [facility] [address] [place], [place] [phone] Network Security Engineer: Campos Chandra MD Color (U) YELLOW Normal YEL [facility] Comment on above: Performed By: #### U MICAO, UA, DIOGENES #### [facility] [address] [place] [phone] Network Security Engineer: Campos Chandra MD Comment Normal [facility] Comment on above: Performed By: #### U MICAO, UA, DIOGENES #### [facility] [address] [place] [address] Network Security Engineer: Campos Chandra MD Glucose Ql (U) Negative Normal NEG [facility] Comment on above: Performed By: #### U MICAO, UA, DIOGENES #### [facility] [address] [place] [address] Network Security Engineer: Campos Chandra MD Ketones Ql (U) Negative Normal NEG [facility] Comment on above: Performed By: #### U MICAO, UA, DIOGENES #### [facility] [address] [place], [place] [id number] Network Security Engineer: Campos Chandra MD Leukocyte esterase Test strip Ql (U) 1+ Abnormal NEG [facility] Comment on above: Performed By: #### U MICAO, UA, DIOGENES #### [facility] [address] [place] [address] Network Security Engineer: Campos Chandra MD Nitrite,Ur Negative Normal NEG [facility] Comment on above: Performed By: #### U MICAO, UA, DIOGENES #### [facility] [address] [place] [address] Network Security Engineer: Campos Chandra MD PH,Ur 5.0 Normal 5.0-8.0 [facility] Comment on above: Performed By: #### U MICAO, UA, DIOGENES #### [facility] [address] [place] [address] Network Security Engineer: Campos Chandra MD Protein Ql (U) 3+ Abnormal NEG [facility] Comment on above: Performed By: #### U MICAO, UA, DIOGENES #### [facility] [address] [place] [address] Network Security Engineer: Campos Chandra MD Spec. [place],Ur 1.025 Normal 1.005-1.030 [facility] Comment on above: Performed By: #### U MICAO, UA, DIOGENES #### [facility] [address] [place] [address] Network Security Engineer: Campos Chandra MD Urobilinogen,Ur Normal Normal NORM [facility] Comment on above: Performed By: #### U MICAO, UA, DIOGENES #### [facility] [address] [place] [address] Network Security Engineer: Campos Chandra MD Urinalysis, reflex to micros copicOrdered By: Nathaly Cory on 04-30-2021 Bilirubin Urine Negative NEGATIVE [facility] Work Phone: Color, UA YELLOW YELLOW [employer] Work Phone: Glucose, Ur Negative NEGATIVE [employer] Work Phone: Interpretation and review of laboratory results Abnormal [employer] Phone: Ketones Ql (U) Negative NEGATIVE [employer] Work Phone: Leukocyte esterase Test strip Ql (U) 1+ Abnormal NEGATIVE [employer] Phone: Nitrite, Urine Negative NEGATIVE [employer] Work Phone: pH, UA 5.0 [employer] Phone: Protein, UA 3+ Abnormal NEGATIVE [employer] Phone: Specific [place], UA 1.025 [employer] Phone: Turbidity UA CLOUDY Abnormal CLEAR [employer] Phone: Urinalysis Comments [employer] Phone: Urine Hgb 3+ Abnormal NEGATIVE [employer] Phone: Urobilinogen, Urine Normal Normal [facility] Phone: [employer] Phone: Urinalysis,Microon 1 ----- Normal [facility] Comment on above: Performed By: #### U MICAO, UA, DIOGENES #### [facility] [address] [place], [place] [phone] Network Security Engineer: Campos Chandra MD Urine RBC's LOADED Normal 0-2 [facility] Comment on above: Performed By: #### U MICAO, UA, DIOGENES #### [facility] [address] [place], [place] 8881490 Network Security Engineer: Campos Chandra MD Urine WBC's 2 TO 5 Normal 0 [facility] Comment on above: Performed By: #### U MICAO, UA, DIOGENES #### [facility] [address] [place], [place] [id number] Network Security Engineer: Campos Chandra MD Amorphous sediment LM Ql (Urine sed) NOT REPORTED Normal [facility] Comment on above: Performed By: #### U MICAO, UA, DIOGENES #### [facility] [address] [place] [address] Network Security Engineer: Campos Chandra MD Bacteria NOT REPORTED Normal [facility] Comment on above: Performed By: #### U MICAO, UA, DIOGENES #### [facility] [address] [place], [place] [phone] Network Security Engineer: Campos Chandra MD Casts NOT REPORTED Normal [facility] Comment on above: Performed By: #### U MICAO, UA, DIOGENES #### [facility] [address] [place], [place] [phone] Network Security Engineer: Campos Chandra MD Crystals LM Nom (Urine sed) NOT REPORTED Normal [facility] Comment on above: Performed By: #### U MICAO, UA, DIOGENES #### [facility] [address] [place], [place] 650[address] Network Security Engineer: Campos Chandra MD Epithelial cells LM Ql (Urine sed) NOT REPORTED Normal [facility] Comment on above: Performed By: #### U MICAO, UA, DIOGENES #### [facility] [address] [place], [place] [phone] Network Security Engineer: Campos Chandra MD Epithelial, Renal NOT REPORTED Normal 0 [facility] Comment on above: Performed By: #### U MICAO, UA, DIOGENES #### [facility] [address] [place] [address] Network Security Engineer: Campos Chandra MD Mucus Strands NOT REPORTED Normal NONE [facility] Comment on above: Performed By: #### U MICAO, UA, DIOGENES #### [facility] [address] [place] [address] Network Security Engineer: Campos Chandra MD Other Observations NOT REPORTED Normal NREQ [facility] Comment on above: Performed By: #### U MICAO, UA, DIOGENES #### [facility] [address] [place] [address] Network Security Engineer: Campos Chandra MD Trichomonas NOT REPORTED Normal NONE [facility] Comment on above: Performed By: #### U MICAO, UA, DIOGENES #### [facility] [address] [place] [address] Network Security Engineer: Campos Chandra MD Yeast NOT REPORTED Normal [facility] Comment on above: Performed By: #### U MICAO, UA, DIOGENES #### [facility] [address] [place] [address] Network Security Engineer: Campos Chandra MD hCG, quantitative, Ordered By: Nathaly Patterson on 04-30-2021 hCG Quant [id number] High <5 IU/L [facility] Work Phone: Comment on above: Non-preg premeno <=5 Postmeno <=8 Male <=3 If HCG results do not concur with clinical observations, additional testing to confirm results is recommended. Elevated results not associated with may be found in patients with other diseases such as tumors of the germ cells (testis, ovaries, etc.), bladder, pancreas, stomach, lungs, and liver. Interpretation and review of laboratory results Abnormal [employer] Phone: [employer] Phone: RPR QUANTon 04-12-2021 Rapid Plasma Reagin, Quant Non-Reactive Normal NonRea<1:1 [facility] Comment on above: Performed By: #### R PRQ #### [facility] [address] [place] [address] Carlos Hull HEP B SURFACE ANTIGEN SCREEN on 04-11-2021 HBsAg Screen Negative Normal Negative [facility] Comment on above: Performed By: #### R UBIGG #### [facility] [address] [place] [address] Carlos Hull HEPATITIS C VIRUS AB W/ REFL EX QUANTon 04-11-2021 HCV AB <0.1 Normal 0.0-0.9 [facility] Comment on above: Performed By: #### H CVPCRR #### [facility] [address] [place] [address] Carlos Hull Interpretation: Comment Normal [facility] Comment on above: Result Comment: Nega tive Not infected with HCV, unless recent infection is suspected or other evidence exists to indicate HCV infection. Performed By: #### H CVPCRR #### [facility] [address] [place] [address] Carlos Hull HIV 1 AND 2 WITH REFLEXon HIV Screen 4th Generation wRfx Non-Reactive Normal Non Reactive [facility] Comment on above: Performed By: #### R PRQ #### [facility] [address] [place] [address] Carlos Hull RUBELLA AB IGGon 04-11-2021 Rubella Antibodies, IgG 2.95 index Normal Immune >0.99 [facility] Comment on above: Result Comment: Non- immune <0.90 Equivocal 0.90 - 0.99 Immune >0.99 Performed By: #### R UBIGG #### [facility] [address] [place] [address] Carlos Della CBC AUTO DIFFon 04-10-2021 BASO # 0.0 103/ul Normal 0.0-0.1 [facility] Comment on above: Performed By: #### R UBIGG #### [facility] [address] [place] [address] Carlos Della Basophils/100 WBC (Bld) 0.3 % Normal 0.2-2.0 [facility] Comment on above: Performed By: #### R UBIGG #### [facility] [address] [place] [address] Carlos Della EO # 0.0 103/ul Normal 0.0-0.7 [facility] Comment on above: Performed By: #### R UBIGG #### [facility] [address] [place] [address] Carlos Della Eosinophils/100 WBC (Bld) 0.5 % Critically low 0.9-7.0 [facility] Comment on above: Performed By: #### R UBIGG #### [facility] [address] [place] [address] Carlos Della Erythrocyte distribution width (RBC) [Ratio] 12.3 % Normal 11.0-15.0 [facility] [facility] Comment on above: Performed By: #### R UBIGG #### [facility] [address] [place] [address] Carlos Della Hematocrit (Bld) [Volume fraction] 39.2 % Normal 36.0-48.0 [facility] Comment on above: Performed By: #### R UBIGG #### [facility] [address] [place] [address] Carlos Della Hemoglobin (Bld) [Mass/Vol] 13.0 g/dL Normal 12.0-16.0 [facility] Comment on above: Performed By: #### R UBIGG #### [facility] [address] [place] [address] Carlos Della IG # 0.01 10e3/ul Normal 0.00-0.03 [facility] Comment on above: Performed By: #### R UBIGG #### [facility] [address] [id number] Carlos Della IG % 0.2 % Normal 0.0-0.5 [facility] Comment on above: Performed By: #### R UBIGG #### [facility] [address] [place] [address] Carlos Della LYMPH # 1.7 103/ul Normal 1.2-3.8 [facility] Comment on above: Performed By: #### R UBIGG #### [facility] [address] [place] [address] Carlos Della Lymphocytes/100 WBC (Bld) 25.5 % Normal 20.5-60.0 [facility] Comment on above: Performed By: #### R UBIGG #### [facility] [address] [place] [address] Carlos Della MANUAL DIFF REQ NO Normal [facility] Comment on above: Performed By: #### R UBIGG #### [facility] [address] [place], [place] [address] Carlos Della MCH (RBC) [Entitic mass] 30.2 pg Normal 26.7-34.0 [facility] Comment on above: Performed By: #### R UBIGG #### [facility] [address] [place] [address] Carlos Della MCHC (RBC) [Mass/Vol] 33.2 g/dL Normal 29.9-35.2 [facility] Comment on above: Performed By: #### R UBIGG #### [facility] [address] [place] [address] Carlos Della MCV (RBC) [Entitic vol] 91.2 fL Normal 81.0-99.0 [facility] Comment on above: Performed By: #### R UBIGG #### [facility] [address] [place] [address] Carlos Della MONO # 0.6 103/ul Normal 0.3-0.8 [facility] Comment on above: Performed By: #### R UBIGG #### [facility] [address] [place], [place] [address] Carlos Della Monocytes/100 WBC (Bld) 8.7 % Normal 1.7-12.0 [facility] Comment on above: Performed By: #### R UBIGG #### [facility] [address] [place], [place] [address] Carlos Della NEUT # 4.2 103/ul Normal 1.4-6.5 [facility] Comment on above: Performed By: #### R UBIGG #### [facility] [address] [place], [place] [address] Carlos Della Neutrophils/100 WBC (Bld) 64.8 % Normal 43.0-75.0 [facility] Comment on above: Performed By: #### R UBIGG #### [facility] [address] [place], [place] [address] Carlos Della Platelet mean volume (Bld) [Entitic vol] 9.2 fL Critically low 9.5-13.5 [facility] Comment on above: Performed By: #### R UBIGG #### [facility] [address] [place], [place] [address] Carlos Della PLT 246 103/ul Normal 150-450 [facility] Comment on above: Performed By: #### R UBIGG #### [facility] [address] [place], [place] [address] Carlos Della RBC 4.30 106/ul Normal 4.20-5.40 [facility] Comment on above: Performed By: #### R UBIGG #### [facility] [address] [place], [place] [address] Carlos Della WBC 6.5 103/ul Normal 4.0-11.0 [facility] Comment on above: Performed By: #### R UBIGG #### [facility] [address] [place], [place] [address] Carlos Della CULTURE URINEon 04-10-2021 CULTURE URINE Culture Observations: NO GROWTH Normal [facility] Comment on above: Performed By: #### R PRQ #### [facility] [address] [place], [place] [address] Carlos Hull GLYCOHEMOGLOBIN A1Con 2020 ADA RECOMMENDATION ADA THERAPEUTIC TARGET 6.0 - 7.0 ACTION SUGGESTED > 7.0 Normal [facility] Comment on above: Performed By: #### R UBIGG #### [facility] [address] [place], [place] [address] Carlos Hull Glucose [Mass/Vol] 94 mg/dL Normal [facility] Comment on above: Performed By: #### R UBIGG #### [facility] [address] [place], [place] [address] Carlos Hull HbA1c (Bld) [Mass fraction] 4.9 % Normal <=6.0 [facility] Comment on above: Performed By: #### R UBIGG #### [facility] [address] [place] [address] Carlos Hull BENJAMIN BOX TEST PT SEND OUTo n 04-10-2021 SENT TO REF LAB 04/10/2021 Normal [facility] Comment on above: Performed By: #### R UBIGG #### [facility] [address] [place], [place] [address] Carlos Della TYPE AND SCREENon 04-10-2021 TYPE AND SCREEN Negative Normal [facility] Comment on above: Performed By: #### T NS #### [facility] [address] [place] [address] Carlos Hull US PREG TVon 04-02-2021 US PREG TV EXAMINATION: US PREG TV HISTORY: test positive COMPARISON: No relevant comparison available. FINDINGS: GESTATIONAL SAC: Present and normal appearing. POLE: Present and normal appearing. YOLK SAC: Present. CARDIAC: Present. UTERUS: Normal size and appearance. OVARIES: Right: Contains an oval 2.2 cm hypoechoic area with mild surrounding blood flow, likely complex cyst. Left: Normal. CERVIX: 4.1 cm in length and closed. CUL-DE-SAC: Normal. OTHER: None. AGE BY LMP: Unknown LMP NELA BY LMP: AGE BY US CRL: 11 weeks, 0 days NELA BY US CRL: 10/22/2021 IMPRESSION: 1. Single live intrauterine . Electronically authenticated by: AYDE MIN Date: 2021-04-02 09:55 Normal [facility] PAP ACOG PANEL 2: 30 to 65on 12-31-2020 . . Normal [facility] Comment on above: Result Comment: Perf ormed at: WB Performed By: #### [id number] #### [facility] [address] [place] [address] Carlosgaurang Hull Age Gdln ACOG Testing 30-65 Normal [facility] Comment on above: Performed By: #### [id number] #### [facility] [address] [address] Carlos Hull DIAGNOSIS: Comment Abnormal [facility] Comment on above: Result Comment: EPIT HELIAL CELL ABNORMALITY. LOW GRADE SQUAMOUS INTRAEPITHELIAL LESION (LSIL). PREDOMINANCE OF COCCOBACILLI CONSISTENT WITH SHIFT IN VAGINAL MARA IS PRESENT. Performed at: [facility] Performed By: #### [id number] #### [facility] [address] [place] [address] Carlos Hull Electronically signed by: Comment Normal [facility] Comment on above: Result Comment: Mavis Sharma MD, Pathologist Performed at: [facility] Performed By: #### [id number] #### [facility] [address] [address] Carlos Hull HPV Aptima Positive Abnormal Negative [facility] Comment on above: Result Comment: This nucleic acid amplification test detects fourteen high-risk HPV types (16,18,31,33,35,39,45,51,52,56,58,59,66,68) without differentiation. Performed at: =G Performed By: #### [id number] #### [facility] [address] [place] [address] Carlos Hull Methodology: Comment Normal [facility] Comment on above: Result Comment: This liquid based ThinPrep(R) pap test was screened with the use of an image guided system. Performed at: WB Performed By: #### [id number] #### [facility] [address] [place] [address] Carlos Hull Note: Comment Normal [facility] Comment on above: Result Comment: The Pap smear is a screening test designed to aid in the detection of premalignant and malignant conditions of the uterine cervix. It is not a diagnostic procedure and should not be used as the sole means of detecting cervical cancer. Both false-positive and false-negative reports do occur. . Performed at: WB Performed By: #### [id number] #### [facility] [address] [address] Carlos Hull Pathologist Provided ICD10 Comment Normal [facility] Comment on above: Result Comment: R87. 612, R87.5 Performed at: WB Performed By: #### [id number] #### [facility] [address] [address] Carlos Hull Performed by: Comment Normal [facility] Comment on above: Result Comment: Roxana Conrad, Java Flex Developer (ASCP) Performed at: WB Performed By: #### 4 [id number] #### [facility] [address] [address] Carlos Hull Recommendation: Comment Abnormal [facility] Comment on above: Result Comment: Sugg est follow up as clinically appropriate. Performed at: WB Performed By: #### 4 [id number] #### [facility] [address] [place] [address] Carlos Hull Specimen adequacy: Comment Normal [facility] Comment on above: Result Comment: Sati sfactory for evaluation. Endocervical and/or squamous metaplastic cells (endocervical component) are present. Performed at: WB Performed By: #### [id number] #### [facility] [address] [place], [place] [address] Carlos Hull Vital Signs Date Time Vital Sign Value Performing Clinician Facility 10-19-2022 16:55-0500 Body temperature 98.06 [degF] Chucho Kwon [facility] 10-19-2022 16:55-0500 Diastolic blood pressure 102 mm[Hg] Chucho Kwon [facility] 10-19-2022 16:55-0500 Heart rate 91 /min Chucho Kwon [facility] 10-19-2022 16:55-0500 Respiratory rate 18 /min Chucho Kwon [facility] 10-19-2022 16:55-0500 SaO2% (BldA) [Mass fraction] 98 % Chucho Kwon [facility] 10-19-2022 16:55-0500 Systolic blood pressure 146 mm[Hg] Chucho Kwon [facility] 05-21-2021 00:06-0400 Body weight 75.[address] EL JAIME [facility] Comment on above: Performed By: #### AFPMAT #### [facility] [address] [place] [address] Carlos Hull 04-30-2021 17:33-0400 Body height 170.2 cm Nathaly Patterson MD Work Phone: [employer] Work Phone: 04-30-2021 17:33-0400 Body mass index (BMI) [Ratio] 25.98 kg/m2 Nathaly Patterson MD Work Phone: [facility] Work Phone: 04-30-2021 17:33-0400 Body temperature 97.9 [degF] Nathaly Patterson MD Work Phone: [facility] Work Phone: 04-30-2021 17:33-0400 Body weight 75.25 kg Nathaly Patterson MD Work Phone: [facility] Work Phone: 04-30-2021 17:33-0400 Diastolic blood pressure 73 mm[Hg] Nathaly Patterson MD Work Phone: [facility] Work Phone: 04-30-2021 17:33-0400 Heart rate 71 /min Nathaly Patterson MD Work Phone: [facility] Work Phone: 04-30-2021 17:33-0400 Respiratory rate 18 /min Nathaly Patterson MD Work Phone: [facility] Work Phone: 04-30-2021 17:33-0400 SaO2% (BldA) [Mass fraction] 100 % Nathaly Patterson MD Work Phone: [facility] Work Phone: 04-30-2021 17:33-0400 Systolic blood pressure 127 mm[Hg] Nathaly Patterson MD Work Phone: [facility] Work Phone: 04-08-2021 20:32-0400 Body temperature 98.2 [degF] Anthony Barba MD Work Phone: [facility] Work Phone: 04-08-2021 20:32-0400 Body weight 76.61 kg Anthony Barba MD Work Phone: [facility] Work Phone: 04-08-2021 20:32-0400 Diastolic blood pressure 76 mm[Hg] Anthony Barba MD Work Phone: [facility] Work Phone: 04-08-2021 20:32-0400 Heart rate 66 /min Anthony Barba MD Work Phone: [facility] Work Phone: 04-08-2021 20:32-0400 Respiratory rate 18 /min Anthony Barba MD Work Phone: [facility] Work Phone: 04-08-2021 20:32-0400 SaO2% (BldA) [Mass fraction] 98 % Anthony Barba MD Work Phone: [facility] Work Phone: 04-08-2021 20:32-0400 Systolic blood pressure 117 mm[Hg] Anthony Barba MD Work Phone: [facility] Work Phone: Encounters Encounter Date Encounter Type Care Provider Facility Start: 04-17-2025 End: 04-17-2025 ambulatory [facility] Facility:[facility] Start: 06-06-2024 End: 06-06-2024 ambulatory [facility] Facility:[facility] Start: 10-19-2022 End: 10-19-2022 Emergency department patient visit Chucho Kwon [place] [place] Start: 10-19-2022 End: 10-19-2022 Emergency department patient visit Chucho Kwon [facility] Start: 10-15-2021 End: 10-17-2021 Evaluation and management of inpatient DR EL JAIME Facility:[facility] Start: 10-07-2021 End: 10-07-[address] EL JAIME Facility:[facility] Start: 10-02-2021 End: 10-02-[address] EL JAIME Facility:[facility] Start: 07-29-2021 End: 07-30-[address] LUKE BRANCH Facility:[facility] Start: 07-11-2021 End: 07-12-[address] EL JAIME Facility:[facility] Start: 06-04-2021 End: 06-05-[address] EL JAIME Facility:[facility] Start: 05-18-2021 End: 05-19-[address] EL JAIME Facility:[facility] Start: 04-30-2021 End: 04-30-2021 Emergency department patient visit NATHALY PATTERSON [facility] Start: 04-30-2021 End: 04-30-2021 Emergency department patient visit Nathaly Patterson MD Work Phone: [facility] Comment on above: Vaginal bleeding in (Primary Dx) Start: 04-30-2021 End: 05-01-2021 ambulatory GLEN PACKER Facility:[facility] Start: 04-10-2021 End: 04-11-[address] EL JAIME Facility:[facility] Start: 04-08-2021 End: 04-08-2021 Emergency department patient visit ANTHONY BARBA [facility] Start: 04-08-2021 End: 04-08-2021 Emergency department patient visit Anthony Barba MD Work Phone: [facility] Comment on above: Dental infection (Pr imary Dx) Start: 04-02-2021 End: 04-03-2021 ambulatory NONE LISTED REQUEST Facility:[facility] Start: 12-25-2020 End: 12-25-[address] EL JAIME Facility:[facility] Procedures Date Procedure Procedure Detail Performing Clinician Start: 10-16-2021 Delivery of Products of Conception, External Approach DR EL JAIME Start: 10-16-2021 Drainage of Amniotic Fluid, Therapeutic from Products of Conception, Via Natural or Artificial Opening DR EL JAIME Start: 10-15-2021 Introduction of Othe r Hormone into Peripheral Vein, Percutaneous Approach DR EL JAIME Start: 04-30-2021 Assay of magnesium Rebeca Patterson MD Work Phone: Start: 04-30-2021 Blood typing serologic abo Nathaly Patterson MD Work Phone: Start: 04-30-2021 Drug screen class list a Nathaly Patterson MD Work Phone: Start: 04-30-2021 Urinalysis microscop ic only Nathaly Patterson MD Work Phone: Start: 04-30-2021 Urnls dip stick/tabl et rgnt auto w/o microscopy Nathaly Patterson MD Work Phone: Start: 06-17-2017 Removal Chucho aMria te Comment on above: rt wrist mass remova l Plan of Treatment Date Care Activity Detail Author Start: 06-17-2021 Influenza vaccination [facility] Work Phone: Start: 2000 COVID-19 Vaccine (1) COVID-19 Vaccin e (1) [facility] Work Phone: End: 04-30-2021 Culture, Urine Culture, Urine Microbiology Routine Once for 1 Occurrences starting 04/30/2021 until 04/30/2021 [employer] Phone: Comment on above: Once for 1 Occurrenc es starting 04/30/2021 until 04/30/2021 Culture, Urine Culture, Urine Microbiology Routine 04/30/2021 6:10 PM EDT [employer] Phone: Payers Date Payer Category Payer Unknown [id number] 2.16.84 [id number] 1988 Unknown [id number] 2.16.84 [id number] 1988 Unknown [id number] 2.16.84 [id number] 1988 Unknown [id number] 2.16.84 [id number] 1988 Unknown [id number] 2.16.84 [id number] 1988 Unknown [id number] 2.16.84 [id number] 1988 Unknown [id number] 2.16.84 [id number] 1988 Unknown [id number] 2.16.84 [id number] 1988 Unknown [id number] 2.16.84 [id number] 1988 Unknown [id number] 2.16.84 [id number] 1988 Unknown [id number] 2.16.84 [id number] 1988 Unknown [id number] 2.16.84 [id number] 1988 Unknown [id number] 2.16.84 [id number] 1988 Unknown [id number] 2.16.84 [id number] 1988 Unknown [id number] 2.16.8 [id number] 1959 Private Health Insurance [id number] 1959 Self-pay 1959 Unknown [id number] Unknown [id number] 2.16.84 [id number] Social History Date Type Detail Facility Start: 04-08-2021 End: 04-30-2021 Tobacco smoking status NHIS Never smoker [employer] Phone: Start: 04-08-2021 End: 04-30-2021 Tobacco use and exposure Never used [facility] Start: 04-08-2021 End: 04-30-2021 Alcohol intake Lifetime non-drinker (finding) [employer] Phone: Start: 04-08-2021 History SDOH Alcohol Frequency 1 [employer] Phone: Start: 01-29-2021 [employer] Work Phone: Start: 1990 Sex Assigned At Not on file [facility] Phone: Exposure to SARS-CoV -2 (event) Not sure [facility] Start: 06-13-2017 Tobacco smoking status Smokes tobacco daily (finding) [facility] Comment on above: 12 ppd Sex Assigned At Female [facility] Functional Status Date Assessment Result Facility 10-19-2022 Functional Status N/A [facility] Discharge instructions 10-19-2022 Note Date & Type Note Facility 10-19-2022 Hospital Discharg e instructions Patient Education 10/19/2022 18:40:13 Acute Bronchitis, Adult Acute Bronchitis, Adult Acute bronchitis is sudden (acute) swelling of the air tubes (bronchi) in the lungs. Acute bronchitis causes these tubes to fill with mucus, which can make it hard to breathe. It can also cause coughing or wheezing. In adults, acute bronchitis usually goes away within 2 weeks. A cough caused by bronchitis may last up to 3 weeks. Smoking, allergies, and asthma can make the condition worse. Repeated episodes of bronchitis may cause further lung problems, such as chronic obstructive pulmonary disease (COPD). What are the causes? This condition can be caused by germs and by substances that irritate the lungs, including: Cold and flu viruses. This condition is most often caused by the same virus that causes a cold. Bacteria. Exposure to tobacco smoke, dust, fumes, and air pollution. What increases the risk? This condition is more likely to develop in people who: Have close contact with someone with acute bronchitis. Are exposed to lung irritants, such as tobacco smoke, dust, fumes, and vapors. Have a weak immune system. Have a respiratory condition such as asthma. What are the signs or symptoms? Symptoms of this condition include: A cough. Coughing up clear, yellow, or green mucus. Wheezing. Chest congestion. Shortness of breath. A fever. Body aches. Chills. A sore throat. How is this diagnosed? This condition is usually diagnosed with a physical exam. During the exam, your health care provider may order tests, such as chest X-rays, to rule out other conditions. He or she may also: Test a sample of your mucus for bacterial infection. Check the level of oxygen in your blood. This is done to check for pneumonia. Do a chest X-ray or lung function testing to rule out pneumonia and other conditions. Perform blood tests. Your health care provider will also ask about your symptoms and medical history. How is this treated? Most cases of acute bronchitis clear up over time without treatment. Your health care provider may recommend: Drinking more fluids. Drinking more makes your mucus thinner, which may make it easier to breathe. Taking a medicine for a fever or cough. Taking an antibiotic medicine. Using an inhaler to help improve shortness of breath and to control a cough. Using a cool mist vaporizer or humidifier to make it easier to breathe. Follow these instructions at home: Medicines Take nnpf-lxj-qfizhzu and prescription medicines only as told by your health care provider. If you were prescribed an antibiotic, take it as told by your health care provider. Do not stop taking the antibiotic even if you start to feel better. General instructions Get plenty of rest. Drink enough fluids to keep your urine pale yellow. Avoid smoking and secondhand smoke. Exposure to cigarette smoke or irritating chemicals will make bronchitis worse. If you smoke and you need help quitting, ask your health care provider. Quitting smoking will help your lungs heal faster. Use an inhaler, cool mist vaporizer, or humidifier as told by your health care provider. Keep all follow-up visits as told by your health care provider. This is important. How is this prevented? To lower your risk of getting this condition again: Wash your hands often with soap and water. If soap and water are not available, use hand carbon lamp cleaner. Avoid contact with people who have cold symptoms. Try not to touch your hands to your mouth, nose, or eyes. Make sure to get the flu shot every year. Contact a health care provider if: Your symptoms do not improve in 2 weeks of treatment. Get help right away if: You cough up blood. You have chest pain. You have severe shortness of breath. You become dehydrated. You faint or keep feeling like you are going to faint. You keep vomiting. You have a severe headache. Your fever or chills gets worse. This information is not intended to replace advice given to you by your health care provider. Make sure you discuss any questions you have with your health care provider. Document Released: 11/10/2005 Document Revised: 08/16/2019 Document Reviewed: 03/23/2017 [employer] Patient Education 2020 [employer]. 10/19/2022 18:40:13 Upper Respiratory Infection, Adult, Hnro-qb-Gtxz Upper Respiratory Infection, Adult An upper respiratory infection (URI) affects the nose, throat, and upper air passages. URIs are caused by germs (viruses). The most common type of URI is often called the common cold. Medicines cannot cure URIs, but you can do things at home to relieve your symptoms. URIs usually get better within 7 10 days. Follow these instructions at home: Activity Rest as needed. If you have a fever, stay home from work or school until your fever is gone, or until your doctor says you may return to work or school. ?You should stay home until you cannot spread the infection anymore (you are not contagious). ?Your doctor may have you wear a face mask so you have less risk of spreading the infection. Relieving symptoms Gargle with a salt-water mixture 3 4 times a day or as needed. To make a salt-water mixture, completely dissolve 1 tsp of salt in 1 cup of warm water. Use a cool-mist humidifier to add moisture to the air. This can help you breathe more easily. Eating and drinking Drink enough fluid to keep your pee (urine) pale yellow. Eat soups and other clear broths. General instructions Take ibtr-jqj-ajdjqkl and prescription medicines only as told by your doctor. These include cold medicines, fever reducers, and cough suppressants. Do not use any products that contain nicotine or tobacco. These include cigarettes and e-cigarettes. If you need help quitting, ask your doctor. Avoid being where people are smoking (avoid secondhand smoke). Make sure you get regular shots and get the flu shot every year. Keep all follow-up visits as told by your doctor. This is important. How to avoid spreading infection to others Wash your hands often with soap and water. If you do not have soap and water, use hand carbon lamp cleaner. Avoid touching your mouth, face, eyes, or nose. Cough or sneeze into a tissue or your sleeve or elbow. Do not cough or sneeze into your hand or into the air. Contact a doctor if: You are getting worse, not better. You have any of these: ?A fever. ?Chills. ?Brown or red mucus in your nose. ?Yellow or brown fluid (discharge)coming from your nose. ?Pain in your face, especially when you bend forward. ?Swollen neck glands. ?Pain with swallowing. ?White areas in the back of your throat. Get help right away if: You have shortness of breath that gets worse. You have very bad or constant: ?Headache. ?Ear pain. ?Pain in your forehead, behind your eyes, and over your cheekbones (sinus pain). ?Chest pain. You have long-lasting (chronic) lung disease along with any of these: ?Wheezing. ?Long-lasting cough. ?Coughing up blood. ?A change in your usual mucus. You have a stiff neck. You have changes in your: ?Vision. ?Hearing. ?Thinking. ?Mood. Summary An upper respiratory infection (URI) is caused by a germ called a virus. The most common type of URI is often called the common cold. URIs usually get better within 7 10 days. Take [id number] and prescription medicines only as told by your doctor. This information is not intended to replace advice given to you by your health care provider. Make sure you discuss any questions you have with your health care provider. Document Released: 03/21/2009 Document Revised: 10/11/2019 Document Reviewed: 05/26/2018 [employer] Patient Education 2020 [employer]. Follow Up Care 10/19/2022 16:53:44 With:Joaquim Link Address: Nas[address]ter, [address] [facility] [place] [address]- Business (1) When:10/22/2022 18:20:33 Comments:Follow-up with your primary care provider in 3 to 5 days. If symptoms worsen, do not improve, or new symptoms arise please report back to emergency department for further evaluation. [facility] Evaluation + Plan note Note Date & Type Note Facility Evaluation + Plan note No data available for this section [facility] Evaluation note Note Date & Type Note Facility Evaluation note Diagnosis Dental infection- Primary Acute apical periodontitis of pulpal origin [facility] Evaluation note Note Date & Type Note Facility Evaluation note Diagnosis Vaginal bleeding in - Primary Unspecified antepartum hemorrhage, unspecified as to episode of care [facility] [employer] [facility] [employer] Phone: Hospital Discharge instructions Attachments Note Date & Type Note Facility Hospital Discharge instructions The following attachments cannot be sent through Care Everywhere.Tooth: Abscessed (Ethiopian)documented in this encounter [employer] [facility] [employer] Phone: Hospital Discharge instructions Attachments Note Date & Type Note Facility Hospital Discharge instructions The following attachments cannot be sent through Care Everywhere.: Vaginal Bleeding (Ethiopian)documented in this encounter [employer] Phone: Progress note Note Date & Type Note Facility Progress note No data available for this section [facility] Summary Purpose Family History No Family History Records FoundNo Family History Records FoundNo Family History Records FoundNo Family History Records Found Advance Directives No Advanced Directives Records FoundNo Advanced Directives Records FoundNo Advanced Directives Records FoundNo Advanced Directives Records Found Additional Source Comments Reason for Visit (unrecogniz ed section and content) Reason Comments Dental Pain right lower dental p ain adn swelling since 04/07/21 evening Reason Comments Vaginal Bleeding Pt is 15 weeks pregn ant, pt of Dr. Jaime in [place]. Pt started bleeding this afternoon around 4pm. Pt called office and they told her to go to hospital. She came here because she lives in [place]. Pt also c/o abdominal cramping. Ordered Prescriptions (unrec ognized section and content) Prescription Sig Dispensed Refills Start Date End Da te clindamycin (CLEOCIN) 300 MG capsule Take 1 capsule by mouth 3 times daily for 10 days 30 capsule 0 04/08/2021 04/18/2021 Scheduled Active and Recently Administ ered Medications (unrecognized section and content) Medication Order 04/06/2021 04/07/2021 04/08/2021 clindamycin (CLEOCIN) capsule 300 mg (COMPLETED) 300 mg, Oral, ONCE, On Tue04/08/21 at 2100, For 1 dose 2101 (Given - Provid er: Migel Toribio RN) INFORMATION SOURCE (unrecogn ized section and content) DATE CREATED AUTHOR 05/02/2021 [employer] [employer] DATE CREATED AUTHOR AUTHOR'S ORGANIZ ATION 10/23/2021 [facility] DATE CREATED AUTHOR AUTHOR'S ORGANIZ ATION 08/16/2023 [facility] DATE CREATED AUTHOR AUTHOR'S ORGANIZ ATION 04/19/2025 [facility] Patient Care team informatio n (unrecognized section and content) Personnel Name: Joaquim Osuna DO Address: Address: [address] [place] [address], [facility] [address] [place], [place] [address] FOR RECORDS PERTAINING TO PATIENTS WHO ARE OR HAVE BEEN ENROLLED IN A CHEMICAL DEPENDENCY/SUBSTANCEABUSE PROGRAM, SOME INFORMATION MAY BE OMITTED. This clinical summary was aggregated from multiple sources. Caution should be exercised in using it in the provision of clinical care. This summary normalizes information from multiple sources, and as a consequence, information in this document may materially change the coding, format and clinical context of patient data. In addition, data may be omitted in some cases. CLINICAL DECISIONS SHOULD BE BASED ON THE PRIMARY CLINICAL RECORDS. [employer] [facility]. provides no warranty or guarantee of the accuracy or completeness of information in this document.
--- NOTE | 2025-07-04 12:12 | ED_ITS ---
HPI HPI - General Adult General Chief complaint: Abdominal Pain Stated complaint: + PREG TEST, BLEEDING/ABDOMINAL PAIN Time Seen by Provider: 07/04/25 12:03 Source: patient Mode of arrival: walk-in Limitations: no limitations History of Present Illness HPI narrative: 35-year-old female presents for abdominal pain and vaginal bleeding. She normally does not have periods because she has Mirena. She been bleeding for 3 days and took a home test that was strongly positive. No injury or fever. No history of ectopic . Related Data Home Medications ?Medication ?Instructions ?Recorded ?Confirmed No Known Home Medications 05/23/24 08/0 05/09 Allergies Allergy/AdvReac Type Severity Reaction Status Date / Time No Known Drug Allergies Allergy Verified 07/04/25 12:06 Opioid HPI Opioid Management Most Recent Opioid Data: Last Pain Scale 9 Today, 12:06 Review of Systems ROS Narrative A ten point review of systems is negative except as noted above. PFSH PFSH Social History Little interest or pleasure in doing things: not at all Feeling down, depressed, or hopeless: not at all Exam Narrative Exam Narrative: Nurses note and vital signs reviewed and patient is not hypoxic. General: The patient appears mildly uncomfortable Skin: Warm, dry, no pallor noted. There is no rash noted. Head: Normocephalic, atraumatic Eye: Normal conjunctiva, no drainage Ears, Nose, Mouth, and Throat: oral mucosa is moist. Nares patent. Cardiovascular: Regular Rate and Rhythm Respiratory: Patient is in no distress, no accessory muscle use, lungs are clear to auscultation, no wheezing, rales or rhonchi Back: non-tender GI: Some tenderness in the left lower abdomen Musculoskeletal: The patient has no evidence of calf tenderness, no pitting edema, symmetrical pulses noted bilaterally Neurological: A&O, normal speech Psychiatric: Cooperative Constitutional Vital Signs, click to edit/add: Last Vital Signs Temp 97.8 F 07/04/25 12:06 Pulse 64 07/04/25 14:56 Resp 20 07/04/25 14:56 BP 114/88 07/04/25 14:56 Pulse Ox 100 07/04/25 14:56 O2 Del Method Room Air 07/04/25 14:56 Course Vital Signs Vital signs: Vital Signs Temperature 97.8 F 07/04/25 12:06 Pulse Rate 64 07/04/25 12:06 Respiratory Rate 20 07/04/25 12:06 Blood Pressure 146/93 H 07/04/25 12:06 Pulse Oximetry 100 07/04/25 12:06 Oxygen Delivery Method Room Air 07/04/25 12:06 Temperature 97.8 F 07/04/25 12:06 Pulse Rate 64 07/04/25 14:56 Respiratory Rate 20 07/04/25 14:56 Blood Pressure 114/88 07/04/25 14:56 Pulse Oximetry 100 07/04/25 14:56 Oxygen Delivery Method Room Air 07/04/25 14:56 Medical Decision Making MDM Narrative Medical decision making narrative: hCG titer is only 82 so I do not feel that an ultrasound is indicated at this point. The patient does however have IUD. I have paged Dr. Brooks and I have spoken to Nikki, his PA in the office and we have agreed that the patient will be discharged home with a repeat hCG titer in 2 days. She will return for worsening symptoms. Rh is positive. Treatment diagnosis and disposition and follow-up were discussed with the patient. Differential Diagnosis Differential Diagnosis: Miscarriage, threatened miscarriage, ectopic Lab Data Lab results reviewed: Yes I reviewed the patient's lab results Labs: Lab Results 07/04/25 07/04/25 Range/Units 12:30 12:32 WBC 6.9 (4.0-11.0) 10^3/uL RBC 4.50 (4.20-5.40) 10^6/uL Hgb 14.1 (12.0-16.0) g/dL Hct 41.3 (36.0-48.0) % MCV 91.8 (81.0-99.0) fL MCH 31.3 (26.7-34.0) pg MCHC 34.1 (29.9-35.2) g/dL RDW 12.0 (11.0-15.0) % Plt Count 233 (150-450) 10^3/uL MPV 9.4 L (9.5-13.5) fL Neut % (Auto) 58.7 (43.0-75.0) % Lymph % (Auto) 30.6 (20.5-60.0) % Mcdonough % (Auto) 7.1 (1.7-12.0) % Eos % (Auto) 2.6 (0.9-7.0) % Baso % (Auto) 0.7 (0.2-2.0) % Neut # (Auto) 4.0 (1.4-6.5) 10^3/uL Lymph # (Auto) 2.1 (1.2-3.8) 10^3/uL Mcdonough # (Auto) 0.5 (0.3-0.8) 10^3/uL Eos # (Auto) 0.2 (0.0-0.7) 10^3/uL Baso # (Auto) 0.1 (0.0-0.1) 10^3/uL Abs Immat Gran (auto) 0.02 (0.00-0.03) 10^3/uL Imm/Tot Granulo (auto) 0.3 (0.0-0.5) % Sodium 141 (136-145) mmol/L Potassium 3.7 (3.5-5.1) mmol/L Chloride 105 (98-107) mmol/L Carbon Dioxide 27.1 (21.0-32.0) mmol/L Anion Gap 12.6 BUN 8.0 (7.0-18.0) mg/dL Creatinine 0.58 (0.55-1.02) mg/dL Est GFR ( Amer) >60 (>=60 mL/min/1.73m^2) Est GFR (Non-Af Amer) >60 (>=60 mL/min/1.73m^2) BUN/Creatinine Ratio 13.8 Glucose 93 (74-106) mg/dL Calcium 9.4 (8.5-10.1) mg/dL HCG, Quant 82 mIU/mL Urine Color Lt. yellow (YELLOW) Urine Clarity Clear (CLEAR) Urine pH 6.5 (5.0-9.0) Ur Specific [place] 1.010 (1.005-1.025) Urine Protein Negative (NEG/TRACE) mg/dL Urine Glucose (UA) Negative (NEGATIVE) mg/dL Urine Ketones Negative (NEGATIVE) mg/dL Urine Occult Blood Negative (NEGATIVE) Urine Nitrite Negative (NEGATIVE) Urine Bilirubin Negative (NEGATIVE) Urine Urobilinogen 0.2 (0.2-1.0) EU/dL Ur Leukocyte Esterase Negative (NEGATIVE) Urine RBC 0-2 (0-2) #/HPF Urine WBC 0-2 A (NONE SEEN) #/HPF Ur Squamous Epith Cells None seen (NONE/RARE) #/LPF Urine Crystals None seen (None Seen) #/HPF Urine Bacteria Trace A (NONE SEEN) #/HPF Urine Casts None seen (NONE SEEN) #/LPF Urine Mucus None seen (NONE SEEN) Ur Culture Indicated? No Blood Type O Positive Discharge Plan Discharge Chief Complaint: Abdominal Pain Clinical Impression: Bleeding in early , Miscarriage, threatened, early Patient Disposition: Home, Self-Care Time of Disposition Decision: 15:21 Condition: Good Mode of Transportation: Private Vehicle Prescriptions / Home Meds: No Action No Known Home Medications Print Language: Guyanese Instructions: Threatened Miscarriage (ED) Additional Instructions: Repeat hCG titer on Tuesday, July 06. Follow-up with Dr. Brooks Referrals: SARWAT MURRAY [Primary Care Provider, Unknown] - 1 week
[2025-07-04 12:41] LABS: Glucose Urine UA NEGATIVE (NEGATIVE)
[2025-07-04 12:41] LABS: Hematocrit 41.3 % (36.0-48.0); Hemoglobin 14.1 g/dL (12.0-16.0); Immature Granulocytes Abs Auto 0.02 10^3/uL (0.00-0.03); Immature Granulocytes Pct Auto 0.3 % (0.0-0.5); Lymphocytes Absolute Auto 2.1 10^3/uL (1.2-3.8); Mean Corpuscular HGB Conc 34.1 g/dL (29.9-35.2); Mean Corpuscular Hemoglobin 31.3 pg (26.7-34.0); Mean Corpuscular Volume 91.8 fL (81.0-99.0); Platelet Count 233 10^3/uL (150-450); Red Blood Count 4.50 10^6/uL (4.20-5.40); White Blood Count 6.9 10^3/uL (4.0-11.0)
[2025-07-04 12:47] LABS: Cast Seen? NONE SEEN #/LPF (NONE SEEN); Crystals Seen? None Seen #/HPF (None Seen); Urine Culture Indicated NO
[2025-07-04 13:11] LABS: Anion Gap 12.6; Blood Urea Nitrogen 8.0 mg/dL (7.0-18.0); Calcium 9.4 mg/dL (8.5-10.1); Carbon Dioxide 27.1 mmol/L (21.0-32.0); Chloride 105 mmol/L (98-107); Estimated GFR (African America >60 (>=60 mL/min/1.73m^2); Estimated GFR (Non-African Ame >60 (>=60 mL/min/1.73m^2); Glucose 93 mg/dL (74-106); Potassium 3.7 mmol/L (3.5-5.1); Sodium 141 mmol/L (136-145)
[2025-07-04 14:56] VITALS: BP 114/88; PULSE 64; O2SAT 100
== END 2025-07-04 15:34 | disposition home or self-care (01) ==
PROVIDERS: Emergency Provider Emergency Medicine
DX: O20.0 Threatened abortion (principal); Z3A.00 Weeks of gestation of pregnancy not specified
CPT/HCPCS: 36415; 80048; 81001; 84702; 85025; 86900; 86901; 99284

== ENCOUNTER 2025-07-06 08:46 | Outpatient (OUT) | payer BC, SELFPAY ==
--- OUTSIDE RECORDS SUMMARY | 2025-07-06 08:51 | XMS_ITS | CCD ---
Author Organization [facility] Care Team Providers Care Licensed Psychiatric Technician Name Role Phone Sarwat Umana Primary Care [...] GALLEGOS Procedure Practitioner Unava ilable NOEL, DR GALLEGOS Admitting Unavailable SARWAT MURRAY Primary Care Unavailable [...] Attending Unavailable Joaquim Osuna Primary Care Physician [phone] Chucho Kwon Attending Unavailable Sharath CALIX Attending [...] tablet (1 source) Opioid Agonist Start: 06-17-2017 [place] 325 mg-5 mg oral tablet See Instructions, [...] day(s), # 6 tab(s), Refills(s) 0, [facility]acy: [facility], 170, cm, 10/19/22 16:59:00 EST, Height/Length [...] day(s), # 5 tab(s), Refills(s) 0, Pharmacy: [facility], 170, cm, 10/19/22 16:59:00 EST, Height/Length [...] cough for her. Reports that he tried atgl-geo-wxsyklw medications, with no relief of her symptoms. [...] and Complexity of Problems Differential Diagnosis: [] [facility] Data External documents reviewed: [] My EKG interpretation: [] My CT interpretation: [] My X-ray interpretation: Reviewed My Ultrasound interpretation: [] Decision rules/scores evaluated: [] Discussed with: [] Treatment and Disposition ED Course: 32-year-old female reports emergency department chief complaint of cough that is been going since a month ago. Reports that it is not getting better. Reports that she has tried uyto-ryk-efaypls medications without much relief of her symptoms. Reports that she is still coughing. Denies any recent antibiotic use. Reports that she has tried izte-cji-gsqcdgh medication without relief. Denies any fevers or [...] antibiotics and medication as prescribed. Continue take zvqq-zce-dfkxmol medications. Discussed return precautions. Follow-up with your [...] day(s), # 6 tab(s), Refills(s) 0, Pharmacy: [facility], 862 (more content not included)... Normal [facility] Comment on above: Result Comment: Elec tronically Signed By: Tony Hamlin PA-C\.br\Date and Time Signed: 10/19/22 21:25 EST\.br\Electronically Co-Signed By: Chucho Kwon DO\.br\Date and Time Co-Signed: 10/26/22 07:09 EST Coding Summary.on 10-22-2022 Coding Summary. CD:[id number] Gh0bWw+PGhlYWQ+PE1FV QOcN88hvADhwF2EE7lJK A6KZTIKUVWHWJ0QZP1wv IO5RRgtY1DgyyTf BlyiiEWaMY90KUn1SLX1 cMvmWRrvrT6bzUPaO2u2 OzAkZH93oF94VJjzHTJr KjL1HqPnceveyYFc O9evZyIbtMRnEuh+PHRh YmxlIHdpZHRoPScxMDAl GcKcgGasVY7lBc1cQXTe LWNvbGxhcHNlOiBj c1cgTQPjJMveNW6rgDlw B4VncSQ2KRZyf4f2Ch23 dHI+OAPeFHX7lAapRZow k004WsJyp3umQMC0 pVKbTPnjWSB4W39os0M3 KBQgBCLtIWZ1mCI6vF2p zOgqorwnO0YmwTSpSoW9 VMC7vDIsjE3duGlx hkhnkG2hAcy+R71YCU0M ZHUEIN5JGos4D7VoUzqf dHI+RU22XMQuLD48yCMq rVGhy4kigIe3UzKn QOKpCQC2mVmnQHjyg9Lp KNDjK49nxYWck7N4DVBi xQitiOTdVwRmjXJ7iO9z UGgsvtctm3xkklps Jzlps4dztu95vY73Y35o TXjnVEFkHYR1SXPqHCSi tNzokf7mmU9tNx6+IDxj w7wio9vjbSr9VkVb NOSmhiXxoIvdVVI5g3Us Xq57T9XyrFwna2BqNqs0 ig44fDHsl5D9dAK7KZqf SMZabY3xZZbgHoE3 GUAsMdPgbS50kHTxCRsv Iy7irOjkpUmfPR8aSZCc kzrcWFOnhV5vMIQguYJd sVajGS6aJJRxyfoc r572XfKdIPO7WRQwtVOa X8KcvS5pIlLfJKDkXHYx R3PzpKKaELxzB238XKvv NpA4ZBDggbXlX1Lw NNFpyDtlYaL2x3M4Qn3N z6TzhraiNIN8ACczFVOn XrW8GsUaPvH4G2NhPau6 AGLzlYhhEN0kU0Wz MPQwqbvrperjoCC4WXLo EIUazN94zOMtLHnhSt3c p0J7d589LEYoYRTwvI09 Hc5oqAueMCBlvQDJ dV4ioaxfp5imsxkaOiJe TNTbGGx2VYh4OFKaxAuz GiNlWLC6IjM2CRY4mZZu nZ5kiGjltlurdR6r Oyc+W37bfK8rMCJ1GIJ5 rytgDWQphuSgRB09XB90 Q3FqXbludHKhsWY+PGRp qfVvtNlyWR5fCvZu h5omh4PvSXkyG4OeDIXb VJdzQxd5EXVnVZU0eGZ5 xB3jCKGpHGyzv2N9qAR9 T6AntiVenl0lh8oq KMPfBMwsQ70jwBZms9C3 FVRfrML2AEGxnEvuVeYp dZ26Nlx+UFSvuCyvd9Wg Hcsbz2imj6rccVv7 IjMwJSIgdmFsaWduPSJ0 g2FfZa30U01vUPrvBWHm ZVUzFZTfTEHfsYkcsa4z pA4rIv9+PGNvbCB3 yFT9pE3kHEZrUqW4NNoj T268RdJquOKeUnatu5yv q4aacLn4LdMlYBAmcdLl sXgjGPW0d1PzLz60 Y48uBIfcLTUwYPStYHNd UMWvmIrhsk7mtW5wWa5+ KF7mm4ukij69zT16oTN+ SBIaWDB0fWkiVIsf MSPjbX8mFPnpJuB5LYRm OoOypP11dCMyWTwcZh8i zCcscOcxYH7cNKXirwhg s526JkJup9jeQLOv wHDxBFcqZJE2Q90hl3L5 QGHvEPTtENW7hFZ5rV1a bGlnbjogbGVmdDsgdmVy oLbbUMqwEUmlB854 IHRvcDsnPlBhdGllbnQg RbNgDRa2I0UoAtz9MMJr kAzsOU3fcCNaQRxbZu3l jFparZquJW0tODUn dfsbm677RkRgd3lhMHPp hTBeVDcvUUV7D22ae5J2 EJYuFEMtGGN2kBG0kN5i bGlnbjogbGVmdDsg jpZpgHzrYYpePBfkW728 IHRvcDsnPkJpcnRoIERh aHU6MW63YB22xSMar6J2 bZD8S3SwCGJimnfc usvpgDC3TLWgJFNihX93 Lo7wjTikQa5pFDZmUKL9 IMRibKQyW6EszT0mHzRg JRHwMZGxL5TesDVq KOxbV359TOboOjS0CJYu sjPtW1JlXXBxpMoyPxZ0 c5I4Uj4YJ9Z3WL45HH52 yQHlt0Y0rTB2Y2Vo HUZltjldunxvjJZ8BDKs HEVvtZ39Aq6csLclSg2x MQSdDMB0JSDotWJpO7Wt aQ9pLaSfSWXkDJIl A8GwmAOhWCptO989XRon MsH7XVNadzZxR9WzLFNf tDouDnR8r7W6Hz2BFKf8 MU27XB73hWBxz8O7 rRI2W2GqOXKhjhqqkqhm zNL4TMVzYONgeQ66Ti4y dAdwXu8ePUKdTSK1ITKe vOJkH0ZboZ5iZkRe CUDaOLTbO1PmqGAtHAlw Q273MTlrFkL6BZVqvfVp P2LxENJsyLqhBoS0o7C8 Tv8UESWsFA48UYG3 rXZ5QO92KD85J3ZlHqhe dGFibGU+PHRhYmxlIHdp ZHRoPScxMDAlJyBzdHls LJ3gEn5iQYHgDBRa tFrczTCiBgPea5pzTWAu UVypVB5hnRzjR0NixRS0 AWXit1c5Iy74B94yT2Ig dXA+IFNmoRX4iQU9 pZ1vEfWqAjY5QLilU357 IsBpaXEvLofau0qqw4om mQz7NkE9XETmhwNglUgd SNY2b9PaXp39A83w IHdpZHRoPSIxNSUiIHZh rNknrl8knB6sOk5+PGNv mPN4rQW8qW8vVsPkEgJ2 BLeeB487RdJqhDAj Mfkrr0idm7llhDl3GoEv XBLcdcHrlPqjGZG0b2Ta Ty25C0TwePfxe7QwYwn1 nf83pUZrj6A5xAV0 Y1JdQSGifosibFEuuPkg EJ8sLESfuajsUVIpeF9i VEOyL8d1ZhGvGwS2GEco X3EmcvR4SFCksQTb CNyeJBI7W70rl2Q6IAVx CQRoXJJ0fKT8zN6ahXxk bjogbGVmdDsgdmVydGlj LWeyVYztZ239IIYr aKydFLExrV1wEYHwyBTl rKkqGT7mHUTmxmqvSkyZ UkQsIFNBTUFOVEhBIFI8 B6WcCyd0XRMsaZzi WH1qaNAzHWsuEi3bbYtw gIftWL3zMLMcxwfkOOJr xZ0kPKSruQTmrIfoYI3p FIKtpviwn428BzDk RMN1MVTfkDWvJ4RukX0t NcGgUXFqTCWyX4CvkMAn ADooY430OYudRyM6HPRk laJuL0CuBSUazHfp GmO8m2E2Ra2pLR1fCL9o ZCt0KO82OH32dBPtk8H9 zFW4E7TrNIZyfoucyjul hFO5RVQuALHrmA77 lYGdILaoUw9vw3W1v104 IKAxQFJtkZ05Dg1ttYnk OMIpiQHAxV6hmvimn5me cjogIzAwMDAwMDt0 XUt9UZKuwXfhGfBcKDR2 ZvP4RAS5cZRhmQ1vgBcn vvuiwZ4bKpc+MzQgWWVh phR1M0MlEoi2XXZg fBsvFY3wbXAwDHjpGz6f yMnzrPrnWB0lCADmjnmr QMJgjG8zXSZblXGshLyo LE0hUSVszdqvu615 TcFqJEC8CPNjzPVgU7Wq oQ1lHbDkCMIpDTMaP9Jy aTUmQJkrS425GSzrPcV6 LNZbasQxJ4SsXFVi zLeuYsP0m2F6Yh3MVE5q jBS9T5RnRap1QTLocTqx XL6dhZSxGYmfMj2viKtu yImnFJ8oAQDmcepm VJZmcS4vWOFhxLKndPot FF2iDOFuggkpv264UiLh WFZ0JOWfpUSqP6ZlqC2u WmFhWCJgLGCaO1Aq cPNkRYubT851HSpfDqM7 GPBukrXuK1KaYUDeiWuu QhZ9z2Q7Mr2SpVJyP4Gs Z0w0D0IvSdmlcCY+ WE21WIFaIT93tRNakMOd b0sbtWa0InMxEZHgSMV3 eFlqKNjlq6DlJIFvY10k yWQvn8T6FOYljSgv uQUgGbJybMR5iX3fHBaj asurw0nooqgwYmkpo3kg nk12sL88W35vMZmcJCNr PSIzMCUiIHZhbGln yu7isT5jBw8+PGNvbCB3 aKF6nN3qYsJmCgQ6YBvu K850WfYwnOKaBwxqf3uo h8nkdIh4RrSkGWNx icEvjWneXGL2v9BtXw98 A06hQDlbUDGfTTLhQBDo VFGwvGeziz0oqC5wYl5+ ED3nc2bbft12aJ44 dHI+WPTfCUO0nCbmTUti FHWgxT4wTDbpIqA3BQNc DsNuyJ18kTZwKRfgXu2h bDchcOqmHV3oBKKd mpwpd482XdEvl9vwKFJn iWTjRYuuKUM1Z74sw7C6 OTZgQMWpBFB7cTF3fC0n bGlnbjogbGVmdDsg bzVmgYxjQJsfKJczB268 CBSsrJlnDxMwpJMcB2io ovCICQ3tXlghoFO+PHRk TPQ0mWrfZYndEXLa uO6vDJPgZ6d9HgAuTxE5 RUqiR3AgopD6YNQanJFm TSFkwEFYtC2rbvtnz6au cjogIzAwMDAwMDt0 VRo2TAAibVsqNxWbUYB4 VpA4UDH2dMObtJ3xoIqm dhrwiE1vAod+RklOOjwv dGQ+KOCgEZZ4wZlm TOitDPYcsJ5vRVNyB5a2 XyWvEvZ1OIrpD7QaeqZ8 IUPbbOGnKYKwbHPMiW4u ayuzu9wxsgntBsKu DENtKHs4DUw9YAIxkOty CgOyXOI2GgS6JZU4oAFf rF8ljAxpjfahgP6rBbo+ TVJOOjwvdGQ+PHRk QFZ2lQbkEDrvNNDkoE0g WDZoB1w9IfYpMtV1WMvp K8AcplW3JFLyvOAxIGQr nCPAmT9ekuucq6ne hdeqJvDxGCUwCAi4WEi4 UASmuNimCdRjUEE6ZoU3 UEF4rFNpyA4yfOhtdfuz lC0oDbo+WXO4XDN9 KT23CZ70N1HeXxbyvAUn bGU+PHRhYmxlIHdpZHRo USmvGOVyQvRshOsmQV8x Kz7jHKXnXLTbuAfe cHNl (more content not included)... Normal [facility] XR Chest 2 Viewson XR Chest [...] M.D. Transcribed by: LACY Technologist: AO Normal [facility] Consent for Treatmenton Consent for Treatment [id number] #[id number]:127 Normal [facility] Discharge Instructionson Discharge Instructions [id number]#1.00CD:127 Normal [facility] ED Clinical Summaryon 2022 ED Clinical Summary [place] [id number] ED Clinical Summary Person Information Name: HARSH ARANGO [facility]anne/[facility] Age: 32 Years : 1990 Sex: Female Language: Afghan PCP: Joaquim Osuna DO Marital Status: Single Phone: [phone] Visit Id: Visit Reason: Sinus Pain/Congestion; Cough; [...] 10/19/2022 18:40:12 10/19/2022 18:40:12 10/19/2022 18:40:12 ADDRESS: [facility] [place] [id number] PHYS DOC NOTES: MEDICAL INFORMATION: Prescriptions Given: New Medications [facility], [address] [place], [place] [id number], [phone] azithromycin (azithromycin 250 mg Tab 5-day Dose Pack (Z-Abe)) 1 Packets By Mouth As Directed for 5 Days. as directed on package labeling. Refills: 0. predniSONE (predniSONE 50 mg Tab) 1 Tablets By Mouth every day for 5 Days. Refills: 0. Medications to Continue with No Changes Other Medications acetaminophen-hydroc odone ([place] 325 mg-5 mg oral tablet) 1-2 tab(s) [...] Acute Bronchitis, Adult; Upper Respiratory Infection, Adult, Kxgm-as-Lvdp Follow up: With: Address: When: Joaquim Osuna [address] [place], [place] [address]lorie Painter, [facility] [address] [place] [address] [facility] ([employer] In 3 days 10/22/2022 Comments: Follow-up with your primary care provider in 3 to 5 days. If symptoms worsen, do not improve, or new symptoms arise please report back to emergency department for further evaluation. DIAGNOSIS: Bronchitis Normal [facility] ED Patient Education Noteon 10-19-2022 ED [...] other clear broths. General instructions ? Take iayj-dhc-mqskrpf and prescription medicines only as told by [...] not have soap and water, use hand coding support specialist. ? Avoid touching your mouth, face, eyes, [...] get better within 7?10 days. ? Take pjcl-uia-qgcdpon and prescription medicines only as told by your doctor. This information is not intended to replace advice given to you by your health care provider. Make sure you discuss any questions you have with your health care provider. Document Released: 03/21/2009 Document Revised: 10/11/2019 Document Reviewed: 05/26/2018 [employer] Patient Education ? 2019 [employer]. Pulmonary Medicine Acute Bronchitis, Adult Acute bronchitis [...] A fe (more content not included)... Normal [facility] ED Patient Summaryon 023 ED Patient Summary [address] [address] Patient Discharge Instructions Person Information Name: HARSH ARANGO Age: 32 Years Arrival Date: 10/19/2022 16:52:07 Discharge Diagnosis: Bronchitis Primary Care Physician: Joaquim Osuna DO Provider Information Primary Provider: Chucho Kwon DO Advanced Account Director:None The exam and treatment you received in the Emergency Department were for an urgent problem and are not intended as complete care. It is important that you follow up with a doctor, nurse practitioner, or physician?s front desk assistant for ongoing care. If your symptoms [...] With: Address: Edmundo: Joaquim Painter, [address] [facility] [place] [address] [employer] (1) In 3 days 10/22/2022 Comments: Follow-up [...] Acute Bronchitis, Adult; Upper Respiratory Infection, Adult, Maab-cl-Hptg A MESSAGE TO ALL PATIENTS REGARDING OPIOIDS PRESCRIPTION OPIOIDS: WHAT YOU NEED TO KNOW Prescription opioids can be used to help relieve omiuaegm-hf-rnadfc pain and are often prescribed following a [...] the risk (more content not included)... Normal [facility] MICRO OTHER TESTSOrdered By: Tamar Banks on 10-19-2022 Rapid COV Int NEG Ctl Pass (10/19/22 5:12 PM) Normal [facility] Rapid COV Int POS Ctl Pass (10/19/22 5:12 PM) Normal [facility] SARS-CoV+SARS-CoV-2 (COVID-19) Ag IA.rapid Ql (Resp) Not Detected (10/19/22 5:12 PM) Normal Not Detected [facility] Rapid COVID Antigen ([facility])on 10-19-2022 Rapid COV Int NEG Ctl Pass Normal [facility] Comment on above: Performed By: #### 2 [id number] #### [facility] [address] [place] [address] Rapid COV Int POS Ctl Pass Normal [facility] Comment on above: Performed By: #### 2 [id number] #### [facility] [address] [place] [address] SARS-CoV+SARS-CoV-2 (COVID-19) Ag IA.rapid Ql (Resp) Not detected Normal Not Detected [facility] Comment on above: Result Comment: The [employer]? System for Rapid Detection of SARS-CoV-2 is [...] or revoked sooner. Performed By: #### 2 [id number] #### [facility] [address] [place] [address] ADMITTED TO INTENSIVE CARE UNIT FOR CONDITION OF INTEREST:FIND:PT: NO Normal [facility] Comment on above: Performed By: #### 2 [id number] #### [facility] [address] [place] [address] EMPLOYED IN A HEALTHCARE SETTING:FIND:PT: NO Normal [facility] Comment on above: Performed By: #### 2 [id number] #### [facility] [address] [place] [address] FIRST TEST FOR CONDITION OF INTEREST:FIND:PT: NO Normal [facility] Comment on above: Performed By: #### 2 [id number] #### [facility] [address] [place] [address] HAS SYMPTOMS RELATED TO CONDITION OF INTEREST:FIND:PT: YES Normal [facility] Comment on above: Performed By: #### 2 [id number] #### [facility] [address] [place] [address] HOSPITALIZED FOR CONDITION OF INTEREST:FIND:PT: NO Normal [facility] Comment on above: Performed By: #### 2 [id number] #### [facility] [address] [place] [address] STATUS:FIND:PT: NO Normal [facility] Comment on above: Performed By: #### 2 [id number] #### [facility] [address] [place] [address] RESIDES IN A CONGREGATE CARE SETTING:FIND:PT: NO Normal [facility] Comment on above: Performed By: #### 2 [id number] #### [facility] [address] [place] [address] CBC AUTO DIFFon 10-17-2021 BASO # 0.0 103/ul Normal 0.0-0.1 [facility] Comment on above: Performed By: #### C BC #### [facility] [address] [place] [address] Dr. Marianne Mojica Basophils/100 WBC (Bld) 0.4 % Normal 0.2-2.0 [facility] Comment on above: Performed By: #### C BC #### [facility] [address] [place] [address] Dr. Marianne Mojica EO # 0.1 103/ul Normal 0.0-0.7 [facility] Comment on above: Performed By: #### C BC #### [facility] [address] [place] [address] Dr. Marianne Mojica Eosinophils/100 WBC (Bld) 1.1 % Normal 0.9-7.0 [facility] Comment on above: Performed By: #### C BC #### [facility] [address] [place] [address] Dr. Marianne Mojica Erythrocyte distribution width (RBC) [Ratio] 13.2 % Normal 11.0-15.0 [facility] Comment on above: Performed By: #### C BC #### [facility] [address] [place] [address] Dr. Marianne Mojica Hematocrit (Bld) [Volume fraction] 33.5 % Critically low 36.0-48.0 [facility] Comment on above: Performed By: #### C BC #### [facility] [address] [place] [address] Dr. Marianne Mojica Hemoglobin (Bld) [Mass/Vol] 11.1 g/dL Critically low 12.0-16.0 [facility] Comment on above: Performed By: #### C BC #### [facility] [address] [place] [address] Dr. Marianne Mojica IG # 0.05 10e3/ul Critically high 0.00-0.03 [facility] Comment on above: Performed By: #### C BC #### [facility] [address] [place] [address] Dr. Marianne Mojica IG % 0.5 % Normal 0.0-0.5 [facility] Comment on above: Performed By: #### C BC #### [facility] [address] [place] [address] Dr. Marianne Mojica LYMPH # 2.8 103/ul Normal 1.2-3.8 [facility] Comment on above: Performed By: #### C BC #### [facility] [address] [place] [address] Dr. Marianne Mojica Lymphocytes/100 WBC (Bld) 29.9 % Normal 20.5-60.0 [facility] Comment on above: Performed By: #### C BC #### [facility] [address] [place] [address] Dr. Marianne Mojica MANUAL DIFF REQ NO Normal [facility] Comment on above: Performed By: #### C BC #### [facility] [address] [place] [address] Dr. Marianne Mojica MCH (RBC) [Entitic mass] 31.6 pg Normal 26.7-34.0 [facility] Comment on above: Performed By: #### C BC #### [facility] [address] [place] [address] Dr. Marianne Mojica MCHC (RBC) [Mass/Vol] 33.1 g/dL Normal 29.9-35.2 [facility] Comment on above: Performed By: #### C BC #### [facility] [address] [place] [address] Dr. Marianne Mojica MCV (RBC) [Entitic vol] 95.4 fL Normal 81.0-99.0 [facility] Comment on above: Performed By: #### C BC #### [facility] [address] [place] [address] Dr. Marianne Mojica MONO # 0.7 103/ul Normal 0.3-0.8 [facility] Comment on above: Performed By: #### C BC #### [facility] [address] [place] [address] [address] Marianne Mojica Monocytes/100 WBC (Bld) 7.3 % Normal 1.7-12.0 [facility] Comment on above: Performed By: #### C BC #### [facility] [address] [place] [address] [address] Marianne Mojica NEUT # 5.6 103/ul Normal 1.4-6.5 [facility] Comment on above: Performed By: #### C BC #### [facility] [address] [place] [address] Dr. Marianne Mojica Neutrophils/100 WBC (Bld) 60.8 % Normal 43.0-75.0 [facility] Comment on above: Performed By: #### C BC #### [facility] [address] [place] [address] Dr. Marianne Mojica Platelet mean volume (Bld) [Entitic vol] 9.8 fL Normal 9.5-13.5 [facility] Comment on above: Performed By: #### C BC #### [facility] [address] [place] [address] Dr. Marianne Mojica PLT 188 103/ul Normal 150-450 [facility] Comment on above: Performed By: #### C BC #### [facility] [address] [place] [address] Dr. Marianne Mojica RBC 3.51 106/ul Critically low 4.20-5.[address] [facility] Comment on above: Performed By: #### C BC #### [facility] [address] [place] [address] Dr. Marianne Mojica WBC 9.2 103/ul Normal 4.0-11.0 [facility] Comment on above: Performed By: #### C BC #### [facility] [address] [place] [address] Dr. Marianne Mojica CBC AUTO DIFFon 10-15-2021 BASO # 0.0 103/ul Normal 0.0-0.1 [facility] Comment on above: Performed By: #### C BC #### [facility] [address] [place] [address] [address] Marianne Mojica Basophils/100 WBC (Bld) 0.2 % Normal 0.2-2.0 [facility] Comment on above: Performed By: #### C BC #### [facility] [address] [place] [address] [address] Marianne Mojica EO # 0.1 103/ul Normal 0.0-0.7 [facility] Comment on above: Performed By: #### C BC #### [facility] [address] [place] [address] [address] Marianne Mojica Eosinophils/100 WBC (Bld) 0.6 % Critically low 0.9-7.0 [facility] Comment on above: Performed By: #### C BC #### [facility] [address] [place] [address] Dr. Marianne Mojica Erythrocyte distribution width (RBC) [Ratio] 13.2 % Normal 11.0-15.0 [facility] Comment on above: Performed By: #### C BC #### [facility] [address] [place] [address] Dr. Marianne Mojica Hematocrit (Bld) [Volume fraction] 37.2 % Normal 36.0-48.0 [facility] Comment on above: Performed By: #### C BC #### [facility] [address] [place] [address] Dr. Marianne Mojica Hemoglobin (Bld) [Mass/Vol] 12.2 g/dL Normal 12.0-16.0 [facility] Comment on above: Performed By: #### C BC #### [facility] [address] [place] [address] Dr. Marianne Mojica IG # 0.04 10e3/ul Critically high 0.00-0.03 [facility] Comment on above: Performed By: #### C BC #### [facility] [address] [place] [address] Dr. Marianne Mojica IG % 0.4 % Normal 0.0-0.5 [facility] Comment on above: Performed By: #### C BC #### [facility] [address] [place] [address] Dr. Marianne Mojica LYMPH # 2.6 103/ul Normal 1.2-3.8 [facility] Comment on above: Performed By: #### C BC #### [facility] [address] [place] [address] Dr. Marianne Mojica Lymphocytes/100 WBC (Bld) 27.0 % Normal 20.5-60.0 [facility] Comment on above: Performed By: #### C BC #### [facility] [address] [place] [address] Dr. Marianne Mojica MANUAL DIFF REQ NO Normal [facility] Comment on above: Performed By: #### C BC #### [facility] [address] [place] [address] Dr. Marianne Mojica MCH (RBC) [Entitic mass] 31.1 pg Normal 26.7-34.0 [facility] Comment on above: Performed By: #### C BC #### [facility] [address] [place] [address] Dr. Marianne Mojica MCHC (RBC) [Mass/Vol] 32.8 g/dL Normal 29.9-35.2 [facility] Comment on above: Performed By: #### C BC #### [facility] [address] [place] [address] Dr. Marianne Mojica MCV (RBC) [Entitic vol] 94.9 fL Normal 81.0-99.0 [facility] Comment on above: Performed By: #### C BC #### [facility] [address] [place] [address] Dr. Marianne Mojica MONO # 0.8 103/ul Normal 0.3-0.8 [facility] Comment on above: Performed By: #### C BC #### [facility] [address] [place] [address] Dr. Marianne Mojica Monocytes/100 WBC (Bld) 7.8 % Normal 1.7-12.0 [facility] Comment on above: Performed By: #### C BC #### [facility] [address] [place] [address] Dr. Marianne Mojica NEUT # 6.2 103/ul Normal 1.4-6.5 [facility] Comment on above: Performed By: #### C BC #### [facility] [address] [place] [address] Dr. Marianne Mojica Neutrophils/100 WBC (Bld) 64.0 % Normal 43.0-75.0 [facility] Comment on above: Performed By: #### C BC #### [facility] [address] [place] [address] Dr. Marianne Mojica Platelet mean volume (Bld) [Entitic vol] 10.5 fL Normal 9.5-13.5 [facility] Comment on above: Performed By: #### C BC #### [facility] [address] [place] [address] Dr. Marianne Mojica PLT 210 103/ul Normal 150-450 [facility] Comment on above: Performed By: #### C BC #### [facility] [address] [place] [address] Dr. Marianne Mojica RBC 3.92 106/ul Critically low 4.20-5.40 [facility] Comment on above: Performed By: #### C BC #### [facility] [address] [place] [address] Dr. Marianne Mojica WBC 9.7 103/ul Normal 4.0-11.0 [facility] Comment on above: Performed By: #### C BC #### [facility] [address] [place] [address] Dr. Marianne Mojica Cov[facility]18 SARS-CoV-2 (COVID-19) RNA VIRA+probe Ql (Unsp spec) Not detected Normal NOT DETECTED [facility] Comment on above: Result Comment: When [...] for this test is supported by the Front End Driver of Health and Human Service's declaration that [...] used). Performed By: #### R PRQ #### [facility] [address] [place] [address] DRUG SCREEN RAPID (URINE)on 10-15-2021 AMP Negative Normal NEGATIVE [facility] Comment on above: Performed By: #### R PRQ #### [facility] [address] [place] [address] Carlos Della BAR Negative Normal NEGATIVE [facility] Comment on above: Performed By: #### R PRQ #### [facility] [address] [place] [address] Della BUP Negative Normal NEGATIVE [facility] Comment on above: Performed By: #### R PRQ #### [facility] [address] [place], [place] [address] BZO Negative Normal NEGATIVE [facility] Comment on above: Performed By: #### R PRQ #### [facility] [address] [place], [place] [address] BREE Negative Normal NEGATIVE The [facility] Comment on above: Performed By: #### R PRQ #### [facility] [address] [place] [address] CUT-OFFS SEE BELOW Normal [facility] Comment on above: Result Comment: AMP [...] ng/mL Performed By: #### R PRQ #### [facility] [address] [place] [address] DRUG CUT HEADER DRUG CLASS TEST SYSTEM CUT-OFF CONCENTRATIONS ARE FOLLOWS: Normal The [facility] Comment on above: Performed By: #### R PRQ #### [facility] [address] [place] [address] Carlos Della mAMP Negative Normal NEGATIVE [facility] Comment on above: Performed By: #### R PRQ #### [facility] [address] [place] [address] Carlos Della MTD Negative Normal NEGATIVE [facility] Comment on above: Performed By: #### R PRQ #### [facility] [address] [place] [address] Carlos Della OPI Negative Normal NEGATIVE [facility] Comment on above: Performed By: #### R PRQ #### [facility] [address] [place] [address] Carlos Della OXY Negative Normal NEGATIVE The [facility] Comment on above: Performed By: #### R PRQ #### [facility] [address] [place] [address] Carlos Della PCP Negative Normal NEGATIVE The [facility] Comment on above: Performed By: #### R PRQ #### [facility] [address] [place], [place] [address] PPX Negative Normal NEGATIVE The [facility] Comment on above: Performed By: #### R PRQ #### [facility] [address] [place] [address] Carlos Della TCA Negative Normal NEGATIVE [facility] Comment on above: Performed By: #### R PRQ #### [facility] [address] [place] [address] Carlos Hull THC Negative Normal NEGATIVE The [facility] Comment on above: Performed By: #### R PRQ #### [facility] [address] [place] [address] Carlos Hull TYPE AND SCREENon 10-15-2021 TYPE AND SCREEN Negative Normal [facility] Comment on above: Performed By: #### R PRQ #### [facility] [address] [place] [address] Carlos Hull US PREG BIOPHY W NON [...] AYDE MIN Date: 2021-10-07 13:52 Normal [facility] CHLAMYDIA/GONOCOCCUS VIRA (SW AB/URINE/PAPon 10-06-2021 Chlamydia trachomatis, VIRA Negative Normal Negative The [facility] Comment on above: Performed By: #### C T/NGNA #### [facility] [address] [place] [address] Dr. Marianne Mojica Neisseria gonorrhoeae, VIRA Negative Normal Negative The [facility] Comment on above: Performed By: #### C T/NGNA #### [facility] [address] [place] [address] Dr. Marianne Mojica VAGINITIS/VAGINOSIS DNA PROB Travon 10-04-2021 Tory species Negative Normal Negative [facility] Comment on above: Performed By: #### R UBIGG #### [facility] [address] [place] [address] Carlosgaurang Hull Gardnerella vaginalis Negative Normal Negative The [facility] Comment on above: Performed By: #### R UBIGG #### [facility] [address] [place] [address] Carlos Hull Trichomonas vaginalis Negative Normal Negative The [facility] Comment on above: Performed By: #### R UBIGG #### [facility] [address] [place] [address] Carlos Hull GROUP B STREP CULTUREon 09-16 S. agalactiae Ag Ql (Unsp spec) Culture Observations: NEGATIVE FOR GROUP B STREPTOCOCCUS. Normal The [facility] Comment on above: Performed By: #### G BSCX #### [facility] [address] [place] [address] Dr. Marianne Mojica US PREG PLACENTAon US [...] AYDE MIN Date: 2021-07-29 12:05 Normal [facility] GLUCOSE - 1HRon 07-11-2021 Glucose [Mass/Vol] 71 mg/dL Critically low 74-106 Th e [facility] Comment on above: Performed By: #### R UBIGG #### [facility] [address] [place] [address] Carlos Hull HEMOGRAM AND PLATELon 2020 Hematocrit (Bld) [Volume fraction] 36.2 % Normal 36.0-48.0 [facility] Comment on above: Performed By: #### R UBIGG #### [facility] [address] [place] [address] Carlos Della Hemoglobin (Bld) [Mass/Vol] 11.8 g/dL Critically low 12.0-16.0 [facility] Comment on above: Performed By: #### R UBIGG #### [facility] [address] [place] [address] Carlos Hull MCH (RBC) [Entitic mass] 31.4 pg Normal 26.7-34.0 [facility] Comment on above: Performed By: #### R UBIGG #### [facility] [address] [phone] Carlos Hull MCHC (RBC) [Mass/Vol] 32.6 g/dL Normal 29.9-35.2 [facility] Comment on above: Performed By: #### R UBIGG #### [facility] [address] [phone] Carlos Hull MCV (RBC) [Entitic vol] 96.3 fL Normal 81.0-99.0 [facility] Comment on above: Performed By: #### R UBIGG #### [facility] [address] [phone] Carlos Hull PLT 234 103/ul Normal 150-450 [facility] Comment on above: Performed By: #### R UBIGG #### [facility] [address] [address] Carlos Hull RBC 3.76 106/ul Critically low 4.20-5.[address] [facility] Comment on above: Performed By: #### R UBIGG #### [facility] [address] [phone] Carlos Hull WBC 9.1 103/ul Normal 4.0-11.0 [facility] Comment on above: Performed By: #### R UBIGG #### [facility] [address] [place], [place] [address] Carlos Hull US PREG ANATOMY SINGLEon US [...] 59th percentile by ultrasound and expected FL/AC: 0.459835 FL/BPD: 0.268390 HC/AC: 1.331394 GESTATIONAL AGE: Age by EDC: 20 weeks, 0 days NELA by EDC: 10/22/2021 Age by current US: 20 weeks, 0 days NELA by current US: 10/22/2021 IMPRESSION: 1. Single live intrauterine with growth detailed above. 2. Low-lying fundal/posterior placenta. Electronically authenticated by: AYDE MIN Date: 2021-06-04 12:07 Normal [facility] AFP MATERNAL FOR SPINA BIFID Aon 05-21-2021 AFP MoM 0.95 Normal The [facility] Comment on above: Performed By: #### A FPMAT #### [facility] [address] [address] Carlos Hull AFP Value 37.7 ng/mL Normal [facility] Comment on above: Performed By: #### A FPMAT #### [facility] [address] [address] Carlosgaurang Hull AFP, Serum for Spina Bifida Report Normal The [facility] Comment on above: Performed By: #### A FPMAT #### [facility] [address] [phone] Carlos Della Comment Comment Normal [facility] Comment on above: Result Comment: Shekhar Lincoln, Ph.D., [facility] Director . References: Available Upon Request. . Multiples Of Median Cutoffs For AFP Elevations Sommer 2.5 Black 2.8 IDD 2.0 Twins 4.5 Abbreviation Definitions IDD - Insulin Dep Diabetes OSBR - Open Spina Bifida Risk . For further inquiries contact [facility] at [phone]. Performed By: #### A FPMAT #### [facility] [address] [address] Carlos Hull Gest Age Collection Date 17.6 weeks Normal [facility] Comment on above: Performed By: #### A FPMAT #### [facility] [address] [place] [address] Carlos Hull Gestat, Age Based on Ultrasound Normal [facility] Comment on above: Result Comment: 11:0 on 04/02/2021 Recalculations are not recommended when gestational dating by LMP and ultrasound are within 10 days. Performed By: #### A FPMAT #### [facility] [address] [place] [address] Carlos Della Insulin Dep Diabetes No Normal [facility] Comment on above: Performed By: #### A FPMAT #### [facility] [address] [place] [address] Carlos Hull Interpretation Comment Normal [facility] Comment on above: Result Comment: Inte rpretation: [...] Customer Services to discuss available options. The [employer] recommends amniocentesis be offered to women age 35 and older. Performed By: #### A FPMAT #### [facility] [address] [place] [address] Carlos Hull [age] Normal [facility] Comment on above: Performed By: #### A FPMAT #### [facility] [address] [place] [address] Carlos Hull Multiple Gestation No Normal [facility] Comment on above: Performed By: #### A FPMAT #### [facility] [address] [place] [address] Carlos Hull OS[place] [address] Normal [facility] Comment on above: Performed By: #### A FPMAT #### [facility] [address] [place], [place] [address] Carlos Hull PDF . Normal [facility] Comment on above: Performed By: #### A FPMAT #### [facility] [address] [place], [place] [address] Carlos Hull Race Normal [facility] Comment on above: Performed By: #### A FPMAT #### [facility] [address] [place], [place] [address] Carlos Hull Test Results: Negative Normal [facility] Comment on above: Performed By: #### A FPMAT #### [facility] [address] [address] Carlos Hull Cult,Urineon 05-01-2021 Cult,Urine Specimen Description .Random Urine Special Requests NOT REPORTED Culture NO GROWTH Report Status FINAL 05/01/2021 Normal [facility] Comment on above: Performed By: #### U RC #### [facility] [address] [place] [address] [employer]etylene Torch Operator: Sekou Fraser MD [facility] [address] [place] [address] Acetylene Torch Operator: Campos Chandra MD US PREG PLACENTAon US [...] by: YURIY WISE Date: 2021-04-30 23:35 Normal [facility] ABO/RHOrdered By: Nathaly Berry s on 04-30-2021 ABO/Rh Positive [facility] Work Phone: [facility] Work Phone: ABO/Rh(D)on 04-30-2021 ABO/Rh(D) Positive Normal [facility] Comment on above: Performed By: #### A [facility] #### [facility] [address] [place] [address] Acetylene Torch Operator: Campos Chandra MD CBC Auto DifferentialOrdered By: Nathaly Jurado on 04-30-2021 Absolute Eos # 0.00 [facility] Work Phone: Absolute Immature Granulocyte NOT REPORTED [facility] [employer] Work Phone: Absolute Lymph # 2.70 [facility] Work Phone: Absolute Newberry # 0.50 [facility] Work Phone: Basophils (Bld) [#/Vol] 0.00 10*3/uL [employer] Work Phone: Basophils/100 WBC (Bld) 0 % 0 - 2 % [employer] Work Phone: Differential Type YES [facility] [employer] Work Phone: Eosinophils/100 WBC (Bld) 0 % 0 - 5 % [facility] Work Phone: Hematocrit (Bld) [Volume fraction] 36.7 % 36 - 46 % [employer] Work Phone: Hemoglobin.gastrointesti nal spec 1 Ql (Stl) 12.5 g/dL 12.0 - 16.0 g/dL [facility] Work Phone: Immature Granulocytes NOT REPORTED 0 % [employer] Work Phone: Lymphocytes/100 WBC (Bld) 30 % 15 - 40 % [employer] Work Phone: MCH (RBC) [Entitic mass] 30.6 pg 26 - 34 pg [employer] Phone: MCHC (RBC) [Mass/Vol] 34.2 g/dL 31 - 37 g/dL M [employer] Phone: MCV (RBC) [Entitic vol] 89.7 fL 80 - 100 fL [employer] Phone: Monocytes/100 WBC (Bld) 5 % 4 - 8 % [employer] Work Phone: NRBC Automated NOT REPORTED per 100 WBC [employer] [facility] Work Phone: Platelet distribution width (Bld) [Ratio] 12.8 % 12.1 - 15.2 % [employer] Phone: Platelet Estimate NOT REPORTED [employer] Phone: Platelet mean volume (Bld) [Entitic vol] NOT REPORTED 6.0 - 12.0 fL [employer] Phone: Platelets (Bld) [#/Vol] 271 10*3/uL [employer] Phone: RBC (Bld) [#/Vol] 4.09 10*6/uL 4.0 - 5.2 m/uL [employer] Phone: RBC (Bld) [#/Vol] NOT REPORTED [employer] Phone: Segmented neutrophils/100 WBC (Bld) 65 % 47 - 75 % [employer] Phone: Segs Absolute 5.70 [employer] Work Phone: WBC (Bld) [#/Vol] 8.9 10*3/uL [employer] Phone: WBC (Bld) [#/Vol] NOT REPORTED [employer] Phone: [employer] Phone: CBC with Diffon 04-30-2021 Abs. Basophil 0.00 k/uL Normal 0.0-0.2 [facility] Comment on above: Performed By: #### Jaime Faria CMPX, CDP #### [facility] [address] [place], [place] [id number] Acet[employer] Torch Operator: Campos Chandra MD Abs.Neutrophil (Seg) 5.70 k/uL Normal 2.5-7.0 [facility] Comment on above: Performed By: #### Jaime Faria CMPX, CDP #### [facility] [address] [place], [place] [id number] Ac[employer]ch Operator: Campos Chandra MD Auto Diff Performed YES Normal [facility] Comment on above: Performed By: #### Jaime Faria CMPX, CDP #### [facility] [address] [phone] [employer] Operator: Campos Chandra MD Basophils/100 WBC (Bld) 0 % Normal 0-2 [facility] Comment on above: Performed By: #### Jaime Faria CMPX, CDP #### [facility] [address] [place], [place] [id number] [employer] Operator: Campos Chandra MD Eosinophils (Bld) [#/Vol] 0.00 10*3/uL Normal 0.0-0.4 [facility] Comment on above: Performed By: #### Jaime Faria CMPX, CDP #### [facility] [address] [place], [place] [id number] [employer] Operator: Campos Chandra MD Eosinophils/100 WBC (Bld) 0 % Normal 0-5 [facility] Comment on above: Performed By: #### Jaime Faria CMPX, CDP #### [facility] [address] [place], [place] [phone] Ac[employer] Operator: Campos Chandra MD Erythrocyte distribution width (RBC) [Ratio] 12.8 % Normal 12.1-15.2 [facility] Comment on above: Performed By: #### Jaime Faria CMPX, CDP #### [facility] [address] [place] [address] Ac[employer] Operator: Campos Chandra MD Hematocrit (Bld) [Volume fraction] 36.7 % Normal 36-46 [facility] Comment on above: Performed By: #### Jaime Faria, CMPX, CDP #### [facility] [address] [place] [address] Ac[employer] Tor[employer] Operator: Campos Chandra MD Hemoglobin (Bld) [Mass/Vol] 12.5 g/dL Normal 12.0-16.0 [facility] Comment on above: Performed By: #### Jaime Faria CMPX, CDP #### [facility] [address] [place] [address] Acet[employer] Torch Operator: Campos Chandra MD Lymphocytes (Bld) [#/Vol] 2.70 10*3/uL Normal 1.0-4.8 [facility] Comment on above: Performed By: #### Jaime Faria CMPX, CDP #### [facility] [address] [place] [address] Acet[employer] Torch Operator: Campos Chandra MD Lymphocytes/100 WBC (Bld) 30 % Normal 15-40 [facility] Comment on above: Performed By: #### Jaime Faria CMPX, CDP #### [facility] [address] [place] [address] Acet[employer] Torch Operator: Campos Chandra MD MCH (RBC) [Entitic mass] 30.6 pg Normal 26-34 [facility] Comment on above: Performed By: #### Jaime Faria CMPX, CDP #### [facility] [address] [place] [address] Acet[employer] Torch Operator: Campos Chandra MD MCHC (RBC) [Mass/Vol] 34.2 g/dL Normal 31-37 [facility] Comment on above: Performed By: #### Jaime Faria, CMPX, CDP #### [facility] [address] [place] [address] Acetylene Torch Operator: Campos Chandra MD MCV (RBC) [Entitic vol] 89.7 fL Normal 80-100 M [facility] Comment on above: Performed By: #### M G, CMPX, CDP #### [facility] [address] [place], [place] [phone] ([phone] Acet[employer] Torch Operator: Campos Chandra MD Monocytes (Bld) [#/Vol] 0.50 10*3/uL Normal 0.0-1.0 [facility] Comment on above: Performed By: #### Jaime Faria, CMPX, CDP #### [facility] [address] [place], [place] [phone] ([phone] Acetylene Torch Operator: Campos Chandra MD Monocytes/100 WBC (Bld) 5 % Normal 4-8 M [facility] Comment on above: Performed By: #### Jaime Faria, CMPX, CDP #### [facility] [address] [place], [place] [phone] ([phone] Acetylene Torch Operator: Campos Chandra MD Neutrophil (Seg) 65 % Normal 47-75 [facility] Comment on above: Performed By: #### Jaime Faria, CMPX, CDP #### [facility] [address] [place], [place] [phone] ([phone] Acet[employer] Torch Operator: Campos Chandra MD Platelets (Bld) [#/Vol] 271 10*3/uL Normal 140-450 [facility] Comment on above: Performed By: #### M G, CMPX, CDP #### [facility] [address] [place], [place] [phone] ([phone] Acet[employer] Torch Operator: Campos Chandra MD RBC (Bld) [#/Vol] 4.09 10*6/uL Normal 4.0-5.2 [facility] Comment on above: Performed By: #### Jaime G, CMPX, CDP #### [facility] [address] [place], [place] [phone] Ac[employer]ch Operator: Campos Chandra MD WBC (Bld) [#/Vol] 8.9 10*3/uL Normal 3.5-11.0 [facility] Comment on above: Performed By: #### M Bienvenido CMPX, CDP #### [facility] [address] [phone] Acet[employer] Torch Operator: Campos Chandra MD Abs.Imm.Granulocyte NOT REPORTED Normal 0.00-0.30 [facility] Comment on above: Performed By: #### M Bienvenido CMPX, CDP #### [facility] [address] [place] [address] Acetylene Torch Operator: Campos Chandra MD Immature Granulocyte NOT REPORTED Normal 0 [facility] [place] Comment on above: Performed By: #### Jaime Faria CMPX, CDP #### [facility] [address] [phone] Acetylene Torch Operator: Campos Chandra MD MPV NOT REPORTED Normal 6.0-12.0 [facility] Comment on above: Performed By: #### Jaime Faria CMPX, CDP #### [facility] [address] [phone] Acet[employer] Torch Operator: Campos Chandra MD NRBC Automated NOT REPORTED Normal [facility] Comment on above: Performed By: #### M Bienvenido CMPX, CDP #### [facility] [address] [phone] Acetylene Torch Operator: Campos Chandra MD Platelet Estimate NOT REPORTED Normal [facility] Comment on above: Performed By: #### Jaime Faria CMPX, CDP #### [facility] [address] [phone] Acet[employer] Torch Operator: Campos Chandra MD RBC morphology finding Nom (Bld) NOT REPORTED Normal [facility] Comment on above: Performed By: #### M Bienvenido CMPX, CDP #### [facility] [address] [place], [place] [phone] Acetylene Torch Operator: Campos Chandra MD WBC Morphology NOT REPORTED Normal [facility] Comment on above: Performed By: #### Jaime Faria CMPX, CDP #### [facility] [address] [place], [place] [phone] Acet[employer] Torch Operator: Campos Chandra MD Comp Metabolic Pr/rfx MGon 0 - Potassium [Moles/Vol] 3.5 mmol/L Low 3.7-5.3 [facility] Comment on above: Performed By: #### TORRIE Mcdonald, CDP #### [facility] [address] [place] [address] Acet[employer] Torch Operator: Campos Chandra MD (cont.) Normal [facility] Comment on above: Result Comment: Aver age GFR for 30-39 years old: 107 mL/min/1.73sq m Chronic Kidney Disease: <60 mL/min/1.73sq m Kidney failure: <15 mL/min/1.73sq m eGFR calculated using average adult body mass. Additional eGFR calculator available at: http://www.Keep Me Certified.PetMD/multiple_crcl_2012.htm Performed By: #### TORRIE Mcdonald, CDP #### [facility] [address] [place] [address] Acetylene Torch Operator: Campos Chandra MD Albumin [Mass/Vol] 3.8 g/dL Normal 3.5-5.2 [facility] Comment on above: Performed By: #### Jaime Faria CMPX, CDP #### [facility] [address] [place] [address] Acetylene Torch Operator: Campos Chandra MD Alkaline Phos 56 U/L Normal 35-104 [facility] Comment on above: Performed By: #### Jaime Faria CMPX, CDP #### [facility] [address] [place], [place] [phone] Acetylene Torch Operator: Campos Chandra MD ALT [Catalytic activity/Vol] 13 U/L Normal 5-33 [facility] Comment on above: Performed By: #### Jaime Faria CMPX, CDP #### [facility] [address] [place] [address] Acetylene Torch Operator: Campos Chandra MD Anion gap [Moles/Vol] 10 mmol/L Normal 9-17 [facility] Comment on above: Performed By: #### Jaime Faria CMPX, CDP #### [facility] [address] [place], [place] [phone] Acetylene Torch Operator: Campos Chandra MD AST [Catalytic activity/Vol] 16 U/L Normal <32 [facility] Comment on above: Performed By: #### Jaime Faria CMPX, CDP #### [facility] [address] [place] [address] Acetylene Torch Operator: Campos Chandra MD Bilirubin [Mass/Vol] 0.23 mg/dL Low 0.30-1.20 [facility] Comment on above: Performed By: #### Jaime Faria CMPX, CDP #### [facility] [address] [place] [address] Acetylene Torch Operator: Campos Chandra MD BUN/CRE Ratio 18 Normal 9-20 [facility] Comment on above: Performed By: #### Jaime Faria CMPX, CDP #### [facility] [address] [place] [address] Acetylene Torch Operator: Campos Chandra MD Calcium [Mass/Vol] 9.2 mg/dL Normal 8.6-10.4 [facility] Comment on above: Performed By: #### Jaime Faria CMPX, CDP #### [facility] [address], [place] [id number] Acetylene Torch Operator: Campos Chandra MD Chloride [Moles/Vol] 105 mmol/L Normal 98-107 [facility] Comment on above: Performed By: #### M Bienvenido, CMPX, CDP #### [facility] [address], [place] [id number] Acetylene Torch Operator: Campos Chandra MD CO2 [Moles/Vol] 23 mmol/L Normal 20-31 [facility] Comment on above: Performed By: #### M Bienvenido, CMPX, CDP #### [facility] [address], [place] [id number] Acetylene Torch Operator: Campos Chandra MD Creatinine [Mass/Vol] 0.44 mg/dL Low 0.50-0.90 [facility] Comment on above: Performed By: #### Jaime Faria, CMPX, CDP #### [facility] [address], [place] [id number] Acetylene Torch Operator: Campos Chandra MD GFR, Amer >60 Normal >60 [facility] Comment on above: Performed By: #### Jaime Faria, CMPX, CDP #### [facility] [address], [place] [id number] Acetylene Torch Operator: Campos Chandra MD GFR,non Amer >60 Normal >60 [facility] Comment on above: Performed By: #### Jaime Faria, CMPX, CDP #### [facility] [address], [place] [id number] Acetylene Torch Operator: Campos Chandra MD Glucose [Mass/Vol] 90 mg/dL Normal 70-99 [facility] Comment on above: Performed By: #### M Bienvenido, CMPX, CDP #### [facility] [address], [place] [id number] Acetylene Torch Operator: Campos Chandra MD Protein [Mass/Vol] 7.0 g/dL Normal 6.4-8.3 [facility] Comment on above: Performed By: #### M G, CMPX, CDP #### [facility] [address], [place] [id number] Acetylene Torch Operator: Campos Chandra MD Sodium [Moles/Vol] 138 mmol/L Normal 135-144 [facility] Comment on above: Performed By: #### M G, CMPX, CDP #### [facility] [address], [place] [id number] Acetylene Torch Operator: Campos Chandra MD Urea nitrogen [Mass/Vol] 8 mg/dL Normal 6-20 [facility] Comment on above: Performed By: #### M G, CMPX, CDP #### [facility] [address], [place] [id number] Acetylene Torch Operator: Campos Chandra MD Albumin/Glob Ratio NOT REPORTED Normal 1.0-2.5 [facility] Comment on above: Performed By: #### M G, CMPX, CDP #### [facility] [address], [place] [id number] Acetylene Torch Operator: Campos Chandra MD Staging: NOT REPORTED Normal [facility] Comment on above: Performed By: #### M G, CMPX, CDP #### [facility] [address], [place] [id number] Acetylene Torch Operator: Campos Chandra MD Comprehensive Metabolic Pane l w/ Reflex to MGOrdered By: Nathaly Patterson on 04-30-2021 Albumin [Mass/Vol] 3.8 g/dL 3.5 - 5.2 g/dL [facility] [employer] Phone: Albumin/Globulin Ratio NOT REPORTED [employer] Phone: ALP (Bld) [Catalytic activity/Vol] 56 U/L 35 - 104 U/L [employer] Phone: ALT [Catalytic activity/Vol] 13 U/L 5 - 33 U/L [employer] Phone: Anion gap [Moles/Vol] 10 mmol/L 9 - 17 mmol/L [employer] Phone: AST [Catalytic activity/Vol] 16 U/L <32 [employer] Phone: Bilirubin [Mass/Vol] 0.23 mg/dL Low 0.30 - 1.20 mg/dL [employer] Phone: Calcium [Mass/Vol] 9.2 mg/dL 8.6 - 10. 4 mg/dL [employer] Phone: Chloride [Moles/Vol] 105 mmol/L 98 - 10 7 mmol/L [employer] Phone: CO2 [Moles/Vol] 23 mmol/L 20 - 31 mmol/L [employer] Phone: Creatinine [Mass/Vol] 0.44 mg/dL Low 0.50 - 0.90 mg/dL [employer] Phone: Free PSA/Total PSA [Mass fraction] 7.0 g/dL 6.4 - 8.3 g/dL [employer] Phone: GFR >60 >60 mL/min [employer] Phone: GFR Non- >60 >60 mL/min [employer] Phone: GFR/1.73 sq M.predicted MDRD (S/P/Bld) [Vol rate/Area] [employer] Phone: Comment on above: Average GFR for 30-3 9 years old: 107 mL/min/1.73sq m Chronic Kidney Disease: <60 mL/min/1.73sq m Kidney failure: <15 mL/min/1.73sq m eGFR calculated using average adult body mass. Additional eGFR calculator available at: http://www.Keep Me Certified.PetMD/multiple_crcl_2012.htm GFR/1.73 sq M.predicted MDRD (S/P/Bld) [Vol rate/Area] NOT REPORTED [employer] Phone: Glucose [Mass/Vol] 90 mg/dL 70 - 99 mg/dL [facility] [employer] Phone: Interpretation and review of laboratory results Abnormal [facility] [employer] Phone: Potassium [Moles/Vol] 3.5 mmol/L Low 3.7 - 5.3 mmol/L [facility] [employer] Phone: Sodium [Moles/Vol] 138 mmol/L 135 - 144 mmol/L [facility] [employer] Phone: Urea nitrogen (BldV) [Mass/Vol] 8 mg/dL 6 - 20 mg/dL [facility] [employer] Phone: Urea nitrogen/Creatinine (Bld) [Mass ratio] 18 [facility] [employer] Phone: [facility] [employer] Phone: Drug Scr, Abuse, Uron 2020 Amphetamine(s),Ur Negative Normal NEG [facility] Comment on above: Result Comment: (Positive cutoff 500 ng/mL) Performed By: #### U MICAO, UA, DIOGENES #### [facility] [address] [place] [address] Acetylene Torch Operator: Campos Chandra MD Barbiturate(s),Ur Negative Normal NEG [facility] Comment on above: Result Comment: (Positive cutoff 200 ng/mL) Performed By: #### U MICAO, UA, DIOGENES #### [facility] [address] [place] [id number] Acetylene Torch Operator: Campos Chandra MD Benzodiazepine(s) Negative Normal NEG [facility] Comment on above: Result Comment: (Positive cutoff 150 ng/mL) Performed By: #### U MICAO, UA, DIOGENES #### [facility] [address] [place] [address] Acetylene Torch Operator: Campos Chandra MD Cannabinoid(s),Ur Negative Normal NEG [facility] Comment on above: Result Comment: (Positive cutoff 50 ng/mL) Performed By: #### U MICAO, UA, DIOGENES #### [facility] [address], [place] [phone] Acetylene Torch Operator: Campos Chandra MD Cocaine Metabolite Negative Normal NEG [facility] Comment on above: Result Comment: (Positive cutoff 150 ng/mL) Performed By: #### U MICAO, UA, DIOGENES #### [facility] [address] [place] [phone] Acetylene Torch Operator: Campos Chandra MD Methadone Ql (U) Negative Normal NEG [facility] Comment on above: Result Comment: (Positive cutoff 200 ng/mL) Performed By: #### U MICAO, UA, DIOGENES #### [facility] [address] [place] [address] Acetylene Torch Operator: Campos Chandra MD Methamphetamine, Ur Negative Normal [facility] Comment on above: Result Comment: (Positive cutoff 500 ng/mL) Performed By: #### U MICAO, UA, DIOGENES #### [facility] [address] [place], [place] [phone] Acetylene Torch Operator: Campos Chandra MD Opiate(s), Ur Negative Normal [facility] Comment on above: Result Comment: (Positive cutoff 100 ng/mL) Performed By: #### U MICAO, UA, DIOGENES #### [facility] [address] [place] [phone] Acetylene Torch Operator: Campos Chandra MD Oxycodone, Urine Negative Normal NEG [facility] Comment on above: Result Comment: (Positive cutoff 100 ng/mL) Performed By: #### U MICAO, UA, DIOGENES #### [facility] [address] [place] [address] Acetylene Torch Operator: Campos Chandra MD Phencyclidine, Ur Negative Normal NEG [facility] Comment on above: Result Comment: (Positive cutoff 25 ng/mL) Performed By: #### U MICAO, UA, DIOGENES #### [facility] [address] [place] [phone] Acetylene Torch Operator: Campos Chandra MD Propoxyphene,Urine Negative Normal NEG [facility] Comment on above: Result Comment: (Positive cutoff 300 ng/mL) Performed By: #### U MICAO, UA, DIOGENES #### [facility] [address] [place] [address] Acetylene Torch Operator: Campos Chandra MD Tricyclic antidepressants Screen Ql (U) Negative Normal NEG [facility] Comment on above: Result Comment: (Positive cutoff 300 ng/mL) Drug screen results are to be used for medical purposes only. All positive results are unconfirmed. Testing for employment or legal uses should be sent to a reference laboratory for confirmation. Performed By: #### U MICAO, UA, DIOGENES #### [facility] [address] [place] [address] Acetylene Torch Operator: Campos Chandra MD Buprenorphrine, Ur NOT REPORTED Normal NEG [facility] Comment on above: Performed By: #### U MICAO, UA, DIOGENES #### [facility] [address] [place] [address] Acetylene Torch Operator: Campos Chandra MD Interpretive Info NOT REPORTED Normal [facility] Comment on above: Performed By: #### U MICAO, UA, DIOGENES #### [facility] [address] [place] [address] Acetylene Torch Operator: Campos Chandra MD MDMA, Urine NOT REPORTED Normal NEG [facility] Comment on above: Performed By: #### U MICAO, UA, DIOGENES #### [facility] [address] [place] [phone] Acetylene Torch Operator: Campos Chandra MD Drug screen multi urineOrder ed By: Nathayl Patterson on 04-30-2021 Amphetamine Screen, Ur Negative NEGATIVE [facility] [employer] Work Phone: Comment on above: (Positive cutoff 500 ng/mL) Barbiturate Screen, Ur Negative NEGATIVE [facility] Work Phone: Comment on above: (Positive cutoff 200 ng/mL) Benzodiazepine Screen, Urine Negative NEGATIVE [facility] Work Phone: Comment on above: (Positive cutoff 150 ng/mL) Buprenorphine Urine NOT REPORTED NEGATIVE [facility] Work Phone: Cannabinoid Scrn, Ur Negative NEGATIVE [facility] Work Phone: Comment on above: (Positive cutoff 50 ng/mL) Cocaine Metabolite, Urine Negative NEGATIVE [facility] Work Phone: Comment on above: (Positive cutoff 150 ng/mL) MDMA, Urine NOT REPORTED NEGATIVE [facility] Work Phone: Methadone Screen, Urine Negative NEGATIVE [facility] Work Phone: Comment on above: (Positive cutoff 200 ng/mL) Methamphetamine, Urine Negative NEGATIVE [facility] Work Phone: Comment on above: (Positive cutoff 500 ng/mL) Opiates, Urine Negative NEGATIVE [facility] Work Phone: Comment on above: (Positive cutoff 100 ng/mL) Oxycodone Screen, Ur Negative NEGATIVE [facility] Work Phone: Comment on above: (Positive cutoff 100 ng/mL) Phencyclidine, Urine Negative NEGATIVE [facility] Work Phone: Comment on above: (Positive cutoff 25 ng/mL) Propoxyphene, Urine Negative NEGATIVE [facility] Work Phone: Comment on above: (Positive cutoff 300 ng/mL) Test Information NOT REPORTED [facility] Work Phone: Tricyclic Antidepressants, Urine Negative NEGATIVE [facility] Work Phone: Comment on above: (Positive cutoff 300 ng/mL) Drug screen results are to be used for medical purposes only. All positive results are unconfirmed. Testing for employment or legal uses should be sent to a reference laboratory for confirmation. [facility] Work Phone: HCG, Quanton 04-30-2021 HCG, Quant 58511 IU/L High <5 [facility] Comment on above: Result Comment: Non-preg premeno <=5 Postmeno <=8 Male <=3 If HCG results do not concur with clinical observations, additional testing to confirm results is recommended. Elevated results not associated with may be found in patients with other diseases such as tumors of the germ cells (testis, ovaries, etc.), bladder, pancreas, stomach, lungs, and liver. Performed By: #### B HCG #### [facility] [address] [place] [address] Acetylene Torch Operator: Campos Chandra MD Magnesiumon 04-30-2021 Magnesium [Mass/Vol] 1.8 mg/dL Normal 1.6-2.6 [facility] Comment on above: Performed By: #### M G, CMPX, CDP #### [facility] [address] [place] [address] Acetylene Torch Operator: Campos Chandra MD MagnesiumOrdered By: Nathaly liu on 04-30-2021 Magnesium [Mass/Vol] 1.8 mg/dL 1.6 - 2 .6 mg/dL [facility] Work Phone: [facility] Work Phone: Microscopic UrinalysisOrdere d By: Nathaly Patterson on 04-30-2021 - [facility] Work Phone: Amorphous, UA NOT REPORTED None [facility] Work Phone: Bacteria, UA NOT REPORTED None [facility] Work Phone: Casts UA NOT REPORTED /LPF [facility] Work Phone: Crystals, UA NOT REPORTED None /HPF [facility] Work Phone: Epithelial Cells UA NOT REPORTED /HPF [facility] Work Phone: Mucus, UA NOT REPORTED None [facility] Work Phone: Other Observations UA NOT REPORTED NOT REQ. [facility] [employer] Work Phone: RBC, UA LOADED [facility] [employer] Work Phone: Renal Epithelial, UA NOT REPORTED 0 /HPF [facility] [employer] Work Phone: Trichomonas, UA NOT REPORTED None [facility] Work Phone: WBC, UA 2 TO 5 0 /HPF [facility] [employer] Work Phone: Yeast, UA NOT REPORTED None [facility] [employer] Phone: [facility] [employer] Phone: Urinalysis, Routineon 2020 Bilirubin, SemiQt,Ur Negative Normal NEG [facility] Comment on above: Performed By: #### U MICAO, UA, DIOGENES #### [facility] [address] [place] [phone] Acetylene Torch Operator: Campos Chandra MD Blood, Urine 3+ Abnormal NEG [facility] Comment on above: Performed By: #### U MICAO, UA, DIOGENES #### [facility] [address] [place] [phone] Acetylene Torch Operator: Campos Chandra MD Clarity (U) CLOUDY Abnormal CLEAR [facility] Comment on above: Performed By: #### U MICAO, UA, DIOGENES #### [facility] [address], [place] [phone] Acetylene Torch Operator: Campos Chandra MD Color (U) YELLOW Normal YEL [facility] Comment on above: Performed By: #### U MICAO, UA, DIOGENES #### [facility] [address] [place] [phone] Acetylene Torch Operator: Campos Chandra MD Comment Normal [facility] Comment on above: Performed By: #### U MICAO, UA, DIOGENES #### [facility] [address] [place] [address] Acetylene Torch Operator: Campos Chandra MD Glucose Ql (U) Negative Normal NEG [facility] Comment on above: Performed By: #### U MICAO, UA, DIOGENES #### [facility] [address] [place] [address] Acetylene Torch Operator: Campos Chandra MD Ketones Ql (U) Negative Normal NEG [facility] Comment on above: Performed By: #### U MICAO, UA, DIOGENES #### [facility] [address], [place] [phone] Acetylene Torch Operator: Campos Chandra MD Leukocyte esterase Test strip Ql (U) 1+ Abnormal NEG [facility] Comment on above: Performed By: #### U MICAO, UA, DIOGENES #### [facility] [address] [place] [address] Acetylene Torch Operator: Campos Chandra MD Nitrite,Ur Negative Normal NEG [facility] Comment on above: Performed By: #### U MICAO, UA, DIOGENES #### [facility] [address] [place] [address] Acetylene Torch Operator: Campos Chandra MD PH,Ur 5.0 Normal 5.0-8.0 [facility] Comment on above: Performed By: #### U MICAO, UA, DIOGENES #### [facility] [address] [place] [address] Acetylene Torch Operator: Campos Chandra MD Protein Ql (U) 3+ Abnormal NEG [facility] Comment on above: Performed By: #### U MICAO, UA, DIOGENES #### [facility] [address] [place] [address] Acetylene Torch Operator: Campos Chandra MD Spec. [place],Ur 1.025 Normal 1.005-1.030 [facility] Comment on above: Performed By: #### U MICAO, UA, DIOGENES #### [facility] [address] [place] [address] Acetylene Torch Operator: Campos Chandra MD Urobilinogen,Ur Normal Normal NORM [facility] Comment on above: Performed By: #### U MICAO, UA, DIOGENES #### [facility] [address] [place] [address] Acetylene Torch Operator: Campos Chandra MD Urinalysis, reflex to micros copicOrdered By: Nathaly Cory on 04-30-2021 Bilirubin Urine Negative NEGATIVE [facility] Work Phone: Color, UA YELLOW YELLOW [employer] Work Phone: Glucose, Ur Negative NEGATIVE [employer] Work Phone: Interpretation and review of laboratory results Abnormal [employer] Phone: Ketones Ql (U) Negative NEGATIVE [employer] Work Phone: Leukocyte esterase Test strip Ql (U) 1+ Abnormal NEGATIVE [employer] Phone: Nitrite, Urine Negative NEGATIVE [employer] Work Phone: pH, UA 5.0 [employer] Phone: Protein, UA 3+ Abnormal NEGATIVE [employer] Phone: Specific [place], UA 1.025 [employer] Phone: Turbidity UA CLOUDY Abnormal CLEAR [employer] Phone: Urinalysis Comments [employer] Phone: Urine Hgb 3+ Abnormal NEGATIVE [employer] Phone: Urobilinogen, Urine Normal Normal [facility] Phone: [employer] Phone: Urinalysis,Microon 1 ----- Normal [facility] Comment on above: Performed By: #### U MICAO, UA, DIOGENES #### [facility] [address] [place], [place] [phone] Acetylene Torch Operator: Campos Chandra MD Urine RBC's LOADED Normal 0-2 [facility] Comment on above: Performed By: #### U MICAO, UA, DIOGENES #### [facility] [address], [place] [phone] Acetylene Torch Operator: Campos Chandra MD Urine WBC's 2 TO 5 Normal 0 [facility] Comment on above: Performed By: #### U MICAO, UA, DIOGENES #### [facility] [address], [place] [phone] Acetylene Torch Operator: Campos Chandra MD Amorphous sediment LM Ql (Urine sed) NOT REPORTED Normal [facility] Comment on above: Performed By: #### U MICAO, UA, DIOGENES #### [facility] [address] [place] [address] Acetylene Torch Operator: Campos Chandra MD Bacteria NOT REPORTED Normal [facility] Comment on above: Performed By: #### U MICAO, UA, DIOGENES #### [facility] [address], [place] [phone] Acetylene Torch Operator: Campos Chandra MD Casts NOT REPORTED Normal [facility] Comment on above: Performed By: #### U MICAO, UA, DIOGENES #### [facility] [address], [place] [phone] Acetylene Torch Operator: Campos Chandra MD Crystals LM Nom (Urine sed) NOT REPORTED Normal [facility] Comment on above: Performed By: #### U MICAO, UA, DIOGENES #### [facility] [address], [place] [phone] Acetylene Torch Operator: Campos Chandra MD Epithelial cells LM Ql (Urine sed) NOT REPORTED Normal [facility] Comment on above: Performed By: #### U MICAO, UA, DIOGENES #### [facility] [address] [place], [place] [phone] Acetylene Torch Operator: Campos Chandra MD Epithelial, Renal NOT REPORTED Normal 0 [facility] Comment on above: Performed By: #### U MICAO, UA, DIOGENES #### [facility] [address] [place] [address] Acetylene Torch Operator: Campos Chandra MD Mucus Strands NOT REPORTED Normal NONE [facility] Comment on above: Performed By: #### U MICAO, UA, DIOGENES #### [facility] [address] [place] [address] Acetylene Torch Operator: Campos Chandra MD Other Observations NOT REPORTED Normal NREQ [facility] Comment on above: Performed By: #### U MICAO, UA, DIOGENES #### [facility] [address] [place] [address] Acetylene Torch Operator: Campos Chandra MD Trichomonas NOT REPORTED Normal NONE [facility] Comment on above: Performed By: #### U MICAO, UA, DIOGENES #### [facility] [address] [place] [address] Acetylene Torch Operator: Campos Chandra MD Yeast NOT REPORTED Normal [facility] Comment on above: Performed By: #### U MICAO, UA, DIOGENES #### [facility] [address] [place] [address] [employer]et[employer] Torch Operator: Campos Chandra MD hCG, quantitative, Ordered By: Nathaly Patterson on 04-30-2021 hCG Quant [id number] High <5 IU/L [facility] Work Phone: Comment on above: Non-preg premeno [...] Interpretation and review of laboratory results Abnormal [employer] Phone: [employer] Phone: RPR QUANTon 04-12-2021 Rapid Plasma Reagin, Quant Non-Reactive Normal NonRea<1:1 [facility] Comment on above: Performed By: #### R PRQ #### [facility] [address] [place] [address] Carlos Hull HEP B SURFACE ANTIGEN SCREEN on 04-11-2021 HBsAg Screen Negative Normal Negative [facility] Comment on above: Performed By: #### R UBIGG #### [facility] [address] [place] [address] Carlos Hull HEPATITIS C VIRUS AB W/ REFL EX QUANTon 04-11-2021 HCV AB <0.1 Normal 0.0-0.9 [facility] Comment on above: Performed By: #### H CVPCRR #### [facility] [address] [place] [address] Carlos Hull Interpretation: Comment Normal [facility] Comment on above: Result Comment: Nega tive Not infected with HCV, unless recent infection is suspected or other evidence exists to indicate HCV infection. Performed By: #### H CVPCRR #### [facility] [address] [place] [address] Carlos Hull HIV 1 AND 2 WITH REFLEXon HIV Screen 4th Generation wRfx Non-Reactive Normal Non Reactive [facility] Comment on above: Performed By: #### R PRQ #### [facility] [address] [place] [address] Carlos Hull RUBELLA AB IGGon 04-11-2021 Rubella Antibodies, IgG 2.95 index Normal Immune >0.99 [facility] Comment on above: Result Comment: Non- immune <0.90 Equivocal 0.90 - 0.99 Immune >0.99 Performed By: #### R UBIGG #### [facility] [address] [place] [address] Carlos Della CBC AUTO DIFFon 04-10-2021 BASO # 0.0 103/ul Normal 0.0-0.1 [facility] Comment on above: Performed By: #### R UBIGG #### [facility] [address] [place] [address] Carlos Della Basophils/100 WBC (Bld) 0.3 % Normal 0.2-2.0 [facility] Comment on above: Performed By: #### R UBIGG #### [facility] [address] [place] [address] Carlos Della EO # 0.0 103/ul Normal 0.0-0.7 [facility] Comment on above: Performed By: #### R UBIGG #### [facility] [address] [place] [address] Carlos Della Eosinophils/100 WBC (Bld) 0.5 % Critically low 0.9-7.0 [facility] Comment on above: Performed By: #### R UBIGG #### [facility] [address] [place] [address] Carlos Della Erythrocyte distribution width (RBC) [Ratio] 12.3 % Normal 11.0-15.0 [facility] Comment on above: Performed By: #### R UBIGG #### [facility] [address] [place] [address] Carlos Della Hematocrit (Bld) [Volume fraction] 39.2 % Normal 36.0-48.0 [facility] Comment on above: Performed By: #### R UBIGG #### [facility] [address] [place] [address] Carlos Della Hemoglobin (Bld) [Mass/Vol] 13.0 g/dL Normal 12.0-16.0 [facility] Comment on above: Performed By: #### R UBIGG #### [facility] [address] [place] [address] Carlos Della IG # 0.01 10e3/ul Normal 0.00-0.03 [facility] Comment on above: Performed By: #### R UBIGG #### [facility] [address] [id number] Carlos Della IG % 0.2 % Normal 0.0-0.5 [facility] Comment on above: Performed By: #### R UBIGG #### [facility] [address] [place] [address] Carlos Della LYMPH # 1.7 103/ul Normal 1.2-3.8 [facility] Comment on above: Performed By: #### R UBIGG #### [facility] [address] [place] [address] Carlos Della Lymphocytes/100 WBC (Bld) 25.5 % Normal 20.5-60.0 [facility] Comment on above: Performed By: #### R UBIGG #### [facility] [address] [place] [address] Carlos Della MANUAL DIFF REQ NO Normal [facility] Comment on above: Performed By: #### R UBIGG #### [facility] [address] [place], [place] [id number] Carlos Della MCH (RBC) [Entitic mass] 30.2 pg Normal 26.7-34.0 [facility] Comment on above: Performed By: #### R UBIGG #### [facility] [address] [place] [address] Carlos Della MCHC (RBC) [Mass/Vol] 33.2 g/dL Normal 29.9-35.2 [facility] Comment on above: Performed By: #### R UBIGG #### [facility] [address] [place] [address] Carlos Della MCV (RBC) [Entitic vol] 91.2 fL Normal 81.0-99.0 [facility] Comment on above: Performed By: #### R UBIGG #### [facility] [address] [place] [address] Carlos Della MONO # 0.6 103/ul Normal 0.3-0.8 [facility] Comment on above: Performed By: #### R UBIGG #### [facility] [address] [place], [place] [address] Carlos Della Monocytes/100 WBC (Bld) 8.7 % Normal 1.7-12.0 [facility] Comment on above: Performed By: #### R UBIGG #### [facility] [address] [place], [place] [id number] Carlos Della NEUT # 4.2 103/ul Normal 1.4-6.5 [facility] Comment on above: Performed By: #### R UBIGG #### [facility] [address] [place], [place] [id number] Carlos Della Neutrophils/100 WBC (Bld) 64.8 % Normal 43.0-75.0 [facility] Comment on above: Performed By: #### R UBIGG #### [facility] [address] [place], [place] [id number] Carlos Della Platelet mean volume (Bld) [Entitic vol] 9.2 fL Critically low 9.5-13.5 [facility] Comment on above: Performed By: #### R UBIGG #### [facility] [address] [place], [place] [id number] Carlos Della PLT 246 103/ul Normal 150-450 [facility] Comment on above: Performed By: #### R UBIGG #### [facility] [address] [place], [place] [id number] Carlos Della RBC 4.30 106/ul Normal 4.20-5.40 [facility] Comment on above: Performed By: #### R UBIGG #### [facility] [address] [place], [place] [id number] Carlos Della WBC 6.5 103/ul Normal 4.0-11.0 [facility] Comment on above: Performed By: #### R UBIGG #### [facility] [address] [place], [place] [id number] Carlos Della CULTURE URINEon 04-10-2021 CULTURE URINE Culture Observations: NO GROWTH Normal [facility] Comment on above: Performed By: #### R PRQ #### [facility] [address], [place] [address] Carlos Hull GLYCOHEMOGLOBIN A1Con 2020 ADA RECOMMENDATION ADA THERAPEUTIC TARGET 6.0 - 7.0 ACTION SUGGESTED > 7.0 Normal [facility] Comment on above: Performed By: #### R UBIGG #### [facility] [address], [place] [address] Carlos Hull Glucose [Mass/Vol] 94 mg/dL Normal [facility] Comment on above: Performed By: #### R UBIGG #### [facility] [address] [place], [place] [address] Carlos Hull HbA1c (Bld) [Mass fraction] 4.9 % Normal <=6.0 [facility] Comment on above: Performed By: #### R UBIGG #### [facility] [address] [place] [address] Carlos Hull BENJAMIN BOX TEST PT SEND OUTo n 04-10-2021 SENT TO REF LAB 04/10/2021 Normal [facility] Comment on above: Performed By: #### R UBIGG #### [facility] [address] [place], [place] [address] Carlos Della TYPE AND SCREENon 04-10-2021 TYPE AND SCREEN Negative Normal [facility] Comment on above: Performed By: #### T NS #### [facility] [address] [place] [address] Carlos Hull US PREG TVon 04-02-2021 US [...] by: AYDE MIN Date: 2021-04-02 09:55 Normal [facility] PAP ACOG PANEL 2: 30 to 65on 12-31-2020 . . Normal [facility] Comment on above: Result Comment: Perf ormed at: WB Performed By: #### [id number] #### [facility] [address] [place] [address] Carlosgaurang Hull Age Gdln ACOG Testing 30-65 Normal [facility] Comment on above: Performed By: #### [id number] #### [facility] [address] [address] Carlos Hull DIAGNOSIS: Comment Abnormal [facility] Comment on above: Result Comment: EPIT HELIAL CELL ABNORMALITY. LOW GRADE SQUAMOUS INTRAEPITHELIAL LESION (LSIL). PREDOMINANCE OF COCCOBACILLI CONSISTENT WITH SHIFT IN VAGINAL MARA IS PRESENT. Performed at: WB Performed By: #### [id number] #### [facility] [address] [place] [address] Carlos Hull Electronically signed by: Comment Normal [facility] Comment on above: Result Comment: Mavis Sharma MD, Pathologist Performed at: WB Performed By: #### [id number] #### [facility] [address] [address] Carlos Hull HPV Aptima Positive Abnormal Negative [facility] Comment on above: Result Comment: This nucleic acid amplification test detects fourteen high-risk HPV types (16,18,31,33,35,39,45,51,52,56,58,59,66,68) without differentiation. Performed at: =G Performed By: #### [id number] #### [facility] [address] [place] [address] Carlos Hull Methodology: Comment Normal [facility] Comment on above: Result Comment: This liquid based ThinPrep(R) pap test was screened with the use of an image guided system. Performed at: WB Performed By: #### [id number] #### [facility] [address] [place] [address] Carlos Hull Note: Comment Normal [facility] Comment on above: Result Comment: The Pap smear is a screening test designed to aid in the detection of premalignant and malignant conditions of the uterine cervix. It is not a diagnostic procedure and should not be used as the sole means of detecting cervical cancer. Both false-positive and false-negative reports do occur. . Performed at: WB Performed By: #### [id number] #### [facility] [address] [address] Carlos Hull Pathologist Provided ICD10 Comment Normal [facility] Comment on above: Result Comment: R87. 612, R87.5 Performed at: WB Performed By: #### [id number] #### [facility] [address] [address] Carlos Hull Performed by: Comment Normal [facility] Comment on above: Result Comment: Roxana Conrad, Candy Roller (ASCP) Performed at: WB Performed By: #### [id number] #### [facility] [address] [address] Carlos Hull Recommendation: Comment Abnormal [facility] Comment on above: Result Comment: Sugg est follow up as clinically appropriate. Performed at: WB Performed By: #### [id number] #### [facility] [address] [place] [address] Carlos Hull Specimen adequacy: Comment Normal [facility] Comment on above: Result Comment: Sati sfactory for evaluation. Endocervical and/or squamous metaplastic cells (endocervical component) are present. Performed at: WB Performed By: #### [id number] #### [facility] [address] [place], [place] [id number] Carlos Hull Vital Signs Date Time Vital Sign Value Performing Clinician Facility 10-19-2022 16:55-0500 Body temperature 98.06 [degF] Chucho Kwon [facility] 10-19-2022 16:55-0500 Diastolic blood pressure 102 mm[Hg] Chucho Kwon [facility] 10-19-2022 16:55-0500 Heart rate 91 /min Chucho Kwon [facility] 10-19-2022 16:55-0500 Respiratory rate 18 /min Chucho Kwon [facility] 10-19-2022 16:55-0500 SaO2% (BldA) [Mass fraction] 98 % Chucho Kwon [facility] 10-19-2022 16:55-0500 Systolic blood pressure 146 mm[Hg] Chucho wKon [facility] 05-21-2021 00:06-0400 Body weight 75.[address] EL JAIME [facility] Comment on above: Performed By: #### AFPMAT #### [facility] [address] [place] [address] Carlos Hull 04-30-2021 17:33-0400 Body height 170.2 cm Nathaly Patterson MD Work Phone: [employer] Work Phone: 04-30-2021 17:33-0400 Body mass index (BMI) [Ratio] 25.98 kg/m2 Nathaly Patterson MD Work Phone: [employer] Work Phone: 04-30-2021 17:33-0400 Body temperature 97.9 [degF] Nathaly Patterson MD Work Phone: [employer] Work Phone: 04-30-2021 17:33-0400 Body weight 75.25 kg Nathaly Patterson MD Work Phone: [employer] Work Phone: 04-30-2021 17:33-0400 Diastolic blood pressure 73 mm[Hg] Nathaly Patterson MD Work Phone: [employer] Work Phone: 04-30-2021 17:33-0400 Heart rate 71 /min Nathaly Patterson MD Work Phone: [employer] Work Phone: 04-30-2021 17:33-0400 Respiratory rate 18 /min Nathaly Patterson MD Work Phone: [employer] Work Phone: 04-30-2021 17:33-0400 SaO2% (BldA) [Mass fraction] 100 % Nathaly Patterson MD Work Phone: [employer] Work Phone: 04-30-2021 17:33-0400 Systolic blood pressure 127 mm[Hg] Nathaly Patterson MD Work Phone: [employer] Work Phone: 04-08-2021 20:32-0400 Body temperature 98.2 [degF] Anthony Barba MD Work Phone: [employer] Work Phone: 04-08-2021 20:32-0400 Body weight 76.61 kg Anthony Barba MD Work Phone: [employer] Work Phone: 04-08-2021 20:32-0400 Diastolic blood pressure 76 mm[Hg] Anthony Barba MD Work Phone: [employer] Work Phone: 04-08-2021 20:32-0400 Heart rate 66 /min Anthony Barba MD Work Phone: [employer] Work Phone: 04-08-2021 20:32-0400 Respiratory rate 18 /min Anthony Barba MD Work Phone: [employer] Work Phone: 04-08-2021 20:32-0400 SaO2% (BldA) [Mass fraction] 98 % Anthony Barba MD Work Phone: [employer] Work Phone: 04-08-2021 20:32-0400 Systolic blood pressure 117 mm[Hg] Anthony Barba MD Work Phone: [facility] Work Phone: Encounters Encounter Date Encounter Type Care Provider Facility Start: 04-17-2025 End: 04-17-2025 ambulatory [facility] Facility:[facility] Start: 06-06-2024 End: 06-06-2024 ambulatory [facility] Facility:[facility] Start: 10-19-2022 End: 10-19-2022 Emergency department patient visit Chucho Kwon Facility[facility] Start: 10-19-2022 End: 10-19-2022 Emergency department patient visit Chucho Kwon [facility] Start: 10-15-2021 End: 10-17-2021 Evaluation and management [...] 04-30-2021 Emergency department patient visit NATHALY PATTERSON [facility] Start: 04-30-2021 End: 04-30-2021 Emergency department patient visit Nathaly Patterson MD Work Phone: [facility] Comment on above: Vaginal bleeding in (Primary Dx) Start: 04-30-2021 End: 05-01-2021 ambulatory GLEN PACKER Facility:[facility] Start: 04-10-2021 End: 04-11-[address] EL JAIME Facility:[facility] Start: 04-08-2021 End: 04-08-2021 Emergency department patient visit ANTHONY BARBA [facility] Start: 04-08-2021 End: 04-08-2021 Emergency department patient visit Anthony Barba MD Work Phone: [facility] Comment on above: Dental infection (Pr [...] MD Work Phone: Start: 06-17-2017 Removal Chucho Maria te Comment on above: rt wrist mass remova l Plan of Treatment Date Care Activity Detail Author Start: 06-17-2021 Influenza vaccination [facility] Work Phone: Start: 2000 COVID-19 Vaccine (1) COVID-19 Vaccin e (1) [facility] Work Phone: End: 04-30-2021 Culture, Urine Culture, Urine Microbiology Routine Once for 1 Occurrences starting 04/30/2021 until 04/30/2021 [employer] Phone: Comment on above: Once for 1 Occurrenc es starting 04/30/2021 until 04/30/2021 Culture, Urine Culture, Urine Microbiology Routine 04/30/2021 6:10 PM EDT [employer] Phone: Payers Date Payer Category Payer Unknown [id number] 2.16.84 [id number] 1988 Unknown [id number] 2.16.84 [id number] 1988 Unknown [id number] 2.16.84 [id number] 1988 Unknown [id number] 2.16.84 [id number] 1988 Unknown [id number] 2.16.84 [id number] 1988 Unknown [id number] 2.16.84 [id number] 1988 Unknown [id number] 2.16.84 [id number] 1988 Unknown [id number] 2.16.84 [id number] 1988 Unknown [id number] 2.16.84 [id number] 1988 Unknown [id number] 2.16.84 [id number] 1988 Unknown [id number] 2.16.84 [id number] 1988 Unknown [id number] 2.16.84 [id number] 1988 Unknown [id number] 2.16.84 [id number] 1988 Unknown [id number] 2.16.84 [id number] 1988 Unknown [id number] 2.16.8 [id number] 1959 Private Health Insurance [id number] 1961 Self-pay 1961 Unknown [id number] Unknown [id number] 2.16.84 [id number] Social History Date Type Detail Facility Start: 04-08-2021 End: 04-30-2021 Tobacco smoking status NHIS Never smoker [employer] Phone: Start: 04-08-2021 End: 04-30-2021 Tobacco use and exposure Never used [employer] Start: 04-08-2021 End: 04-30-2021 Alcohol intake Lifetime non-drinker (finding) [employer] Phone: Start: 04-08-2021 History SDOH Alcohol Frequency 1 [employer] Phone: Start: 01-29-2021 [employer] Work Phone: Start: 1990 Sex Assigned At Not on file [facility] [employer] Phone: Exposure to SARS-CoV -2 (event) Not sure [employer] Start: 06-13-2017 Tobacco smoking status Smokes tobacco daily (finding) [facility] Comment on above: 12 ppd Sex Assigned At Female [facility] Functional Status Date Assessment Result Facility 10-19-2022 Functional Status N/A [facility] Discharge instructions 10-19-2022 Note Date & [...] Follow these instructions at home: Medicines Take yklm-swt-mstcccm and prescription medicines only as told by [...] and water are not available, use hand coding support specialist. Avoid contact with people who have cold [...] 11/10/2005 Document Revised: 08/16/2019 Document Reviewed: 03/23/2017 [employer] Patient Education 2020 [employer]. 10/19/2022 18:40:13 Upper Respiratory Infection, Adult, Wknu-dx-Pgpm Upper Respiratory Infection, Adult An upper respiratory [...] and other clear broths. General instructions Take hynr-vth-wtwdtjq and prescription medicines only as told by [...] not have soap and water, use hand coding support specialist. Avoid touching your mouth, face, eyes, or [...] get better within 7 10 days. Take agvr-oko-mxkxkfd and prescription medicines only as told by your doctor. This information is not intended to replace advice given to you by your health care provider. Make sure you discuss any questions you have with your health care provider. Document Released: 03/21/2009 Document Revised: 10/11/2019 Document Reviewed: 05/26/2018 [employer] Patient Education 2020 [employer]. Follow Up Care 10/19/2022 16:53:44 With:Joaquim Link Address: [address], [address] [facility] [place] [address]- Business (1) When:10/22/2022 18:20:33 Comments:Follow-up with your primary care provider in 3 to 5 days. If symptoms worsen, do not improve, or new symptoms arise please report back to emergency department for further evaluation. [facility] Evaluation + Plan note Note Date & Type Note Facility Evaluation + Plan note No data available for this section [facility] Evaluation note Note Date & Type Note Facility Evaluation note Diagnosis Dental infection- Primary Acute apical periodontitis of pulpal origin [facility]: Evaluation note Note Date & Type Note Facility Evaluation note Diagnosis Vaginal bleeding in - Primary Unspecified antepartum hemorrhage, unspecified as to episode of care documented [facility] this [facility] Phone: Hospital Discharge instructions Attachments Note Date & Type Note Facility Hospital Discharge instructions The following attachments cannot be sent through Care Everywhere.Tooth: Abscessed (Afghan)documented in this encounter [employer] [facility] [employer] Phone: Hospital Discharge instructions Attachments Note Date & Type Note Facility Hospital Discharge instructions The following attachments cannot be sent through Care Everywhere.: Vaginal Bleeding (Afghan)documented in this encounter [employer] Phone: Progress note Note Date & Type Note Facility Progress note No data available for this section [facility] Summary Purpose Family History No Family History [...] pregn ant, pt of Dr. Jaime in [place]. Pt started bleeding this afternoon around 4pm. Pt called office and they told her to go to hospital. She came here because she lives in [place]. Pt also c/o abdominal cramping. Ordered Prescriptions [...] CREATED AUTHOR AUTHOR'S ORGANIZ ATION 10/23/2021 [facility] DATE CREATED AUTHOR AUTHOR'S ORGANIZ ATION 08/16/2023 [facility] DATE CREATED AUTHOR AUTHOR'S ORGANIZ ATION 04/19/2025 [facility] Patient Care team informatio n (unrecognized section and content) Personnel Name: Joaquim Osuna DO Address: Address: [address] [place] [address], [facility] [address] [place], [place] [address] FOR RECORDS PERTAINING TO PATIENTS WHO ARE [...] BE BASED ON THE PRIMARY CLINICAL RECORDS. [employer] [facility]. provides no warranty or guarantee of the accuracy or completeness of information in this document.
--- OUTSIDE RECORDS SUMMARY | 2025-07-06 09:03 | XMS_ITS | CCD ---
Author Organization [facility] Care Team Providers Care Stress Engineer Name Role Phone Sarwat Umana Primary Care Provider [phone] NATHALY PATTERSON Attending Unavailable MURRAY, SARWAT A [...] Attending Unavailable Joaquim Osuna Primary Care Physician Chucho Kwon Attending Unavailable Sharath CALIX Attending [...] tablet (1 source) Opioid Agonist Start: 06-17-2017 [place] 325 mg-5 mg oral tablet See Instructions, [...] day(s), # 6 tab(s), Refills(s) 0, Pharmacy: [facility], 170, cm, 10/19/22 16:59:00 EST, Height/Length [...] day(s), # 5 tab(s), Refills(s) 0, Pharmacy: [facility], 170, cm, 10/19/22 16:59:00 EST, Height/Length [...] cough for her. Reports that he tried vgmq-mqp-yxmrchz medications, with no relief of her symptoms. [...] Complexity of Problems Differential Diagnosis: [] [facility] Data External documents reviewed: [] My EKG interpretation: [] My CT interpretation: [] My X-ray interpretation: Reviewed My Ultrasound interpretation: [] Decision rules/scores evaluated: [] Discussed with: [] Treatment and Disposition ED Course: 32-year-old female reports emergency department chief complaint of cough that is been going since a month ago. Reports that it is not getting better. Reports that she has tried isrg-zsl-vcnirat medications without much relief of her symptoms. Reports that she is still coughing. Denies any recent antibiotic use. Reports that she has tried farl-snx-dchjtcz medication without relief. Denies any fevers or [...] antibiotics and medication as prescribed. Continue take yemx-qjt-wwrdjkx medications. Discussed return precautions. Follow-up with your [...] day(s), # 6 tab(s), Refills(s) 0, Pharmacy: [facility], 016 (more content not included)... Normal [facility] Comment on above: Result Comment: Elec tronically Signed By: Tony Hamlin PA-C\.br\Date and Time Signed: 10/19/22 21:25 EST\.br\Electronically Co-Signed By: Chucho Kwon DO\.br\Date and Time Co-Signed: 10/26/22 07:09 EST Coding Summary.on 10-22-2022 Coding Summary. [id number] Gh0bWw+PGhlYWQ+PE1FV NKuH51dfHMjrZ8KV9mKI K4SSPFQUVUADH8NFY3jv OQ1MXeuF2GrryUc ArspoWPqTZ47QKc9MYT5 oErrSSgdmU1ibGFrV0d6 RgTiZP08cI52JCafXNJp NnY1PjFxpbwsdYQg P3fwFfRkaWViKfd+PHRh YmxlIHdpZHRoPScxMDAl XdImxPapFA4wWo9gFNYr LWNvbGxhcHNlOiBj g8fuJSOkDZekXU8jhDcj U1XydUT2HIGzp8y9Bq96 dHI+JRXtUAA8lRdpEEbg u345JeMnj5zuWSP9 xOGyPTpvQJE3J83ie7L5 TUNdLJQgHML8uXJ6cG1f mJykkpwyM2NmyVHlAhT3 GQB0oKQfqL0gjTkn hjwhlO3zXah+G57VMZ4H TLREMT8LOon4S7PkQjap dHI+ZJ28PGZrKJ85mQAq cINjy2gllCp2MtAn ASBpAXF5wYrcCCtkt6Oo QTNlN84tmJOcr2O1GQYn aVkfyCPbTnHpkXX3hX4v ASaugmoze2adujmw Kyzor4wyyn81sG39T54z JLlfFWMvASC7WDTfHEFr tGktdq0xpB1pWy5+IDxj c8cbj7uttOr9FgBp TOZgfaFieYgtGOS8b3Su Qy96S8AmrIgfw5NdZiy0 lr01eTWgr6F6xBY6GFzc CMYbvV4sTDvbRyH0 XDBrNnYnfX11cVCuHCdv Fe3zzFioaIlfGF1xXMIe voqbSXIthA0iVYKqqJMx oBkaLO9dTGEvccen v644BpDrLBU2VSUwfPXo N8MaiV5oWyKgWMEqIXRa Z1RbkYUsDZukO458CInn RqS6NWWqcwTaP5Mf YVCndGhpQcA7c6Y6Og7L d6PbeuhmZZE9CKwfKGJa PaV9XgUmZlB1C7CvGiw4 OQBjuKqtLN7pG7Kq JPBqiycpykxahWX2HGLv EXYfjX90yHAoZLgwYd1c k6L8w922DFOnLOUkqT41 Ud5ebIxoFEMliYFQ cB8dygilm8pkcykrOnFo ZRNzYKh6EHa3YFOboAqj DfFkGHH2VlW1DHO6kLGz oC0xxNsxcumthT3p Oyc+C52kkR9bHYF9SEA4 ykztLJXcovJfPW94GC16 N5FqXauqcCRtvDK+PGRp nkEgpZtwOA8iGdZt j9kgr8QjKQbjE3InWMBj BQcgYkd9VOHzZON8nEC8 qL7nHGKmJYzlr9T8uAO9 M4IipeZdsv8cw0ne ZZBrQZtwY33ccVOdt0U6 FHUahDC1ZPRqaKaiWvVi uO15Cuk+TTGkrXjmn3Wi Cmxqa6cdk1wemDv8 IjMwJSIgdmFsaWduPSJ0 o2MrIb82B75lFRcnMZSp TVNkIPHuSRMaiTmjco1r aG0mOq1+PGNvbCB3 lYT1wV4tHGLiPjZ2EJyw R245RmEtaZXuSrpef8vq w8ogpTa0QcLxUYZuhsCy mCjiLHM6f0QtEb32 H84hYNhgLWPxVGTwZKUd XSMpkSvdwu6kdU3xWw9+ JV8lw7vaoa24qY85tTM+ RHBuEHA4cRbhLOuy HPUfbB0rVHshAbM4YWCt IhQbbS75zPMuKSsmXs0m tQtisVbwPH5kRFUkjymp h687MnAqk6sfQEPn hWPsHAjwPSN7L43iq9C5 CSXlIQCfIRW0oKL0rT6k bGlnbjogbGVmdDsgdmVy oJtzSJgqDXxfR924 IHRvcDsnPlBhdGllbnQg WzDsRXl7X1YvQuz1HNFh iWbsVU9uhQYkPBhkBd1l uLzuePnyCC1bYMYv wxugh960TfTfq9bxKZXd aTGsWWfaWHI3U09lz4B1 SKAaOGEhARQ6mBC7dZ6x bGlnbjogbGVmdDsg jcJsyWosXYdoZFxfV250 IHRvcDsnPkJpcnRoIERh aRR1KX04FO94mTXgl0S4 wNR1I1IdFHFaihtt bjlpkMW6KROxEIIfeA68 Zq0dyHajHe9oPVKbPLT2 WGNreLZkY0HfeJ2qCqMu XFKoHREbJ1HicOMz XBbmF089MYyzKnP5CMWd tdPuC5QxQZBxwYjlHoP5 x8D1Te7RP7T0GU30VH82 tSJdc2W2mGX8Y2Si EKZtjrurjsxdhBD0LXDl YGPsyJ73Hf7rhWnmLm8m NIUsCUT7TVBomZTiK7In zV2qYeKkLXNfWHLx P4YnjPDoJOecA247RMvp DmF8IKLdvxJtD9WsVTGr fJicKwN7c8W8Cz9YREb2 KQ63PO28wNThl7P1 iOA9V9YpASTwprtkskrr pGW8JBVrGITztW86Ia6f hDsqMx7rIPGyHAE4QKGt rLBfE4VlgV4kBsZm WKRjWCDaT8AirNUuCYyb Q404HRbwHcN5OIAwreFq N1YxKADhmXlbWfP8j3X9 Xs9NJOKhDY26VOH1 nCS9JQ42NG52T5GfEhcz dGFibGU+PHRhYmxlIHdp ZHRoPScxMDAlJyBzdHls GR1hCg6dSCXrTZJe dNjrmHRxDgObq8tsLFHu KMplUZ9ezRefG8PkmCO2 CSLhu9n9Uz27K72bQ4Ge dXA+SCCuoEC9wCD9 oX6wAqPgFlY7NSyzV910 NiHoaBMbHnqbj3fjt7gr nIx5AqN7EEAmahVodLcm WBH7g6JhOg53B84h IHdpZHRoPSIxNSUiIHZh bQmmrs8rzK3oWt4+PGNv dWQ6aNT0tP5tHrUlLkB4 DQmoK857ZyPfuNPu Lyavs4gkr9oamXl0WuVs ECAhgjHckGqdSBK6x8Ii Or00U6EhjJnkq5TvGfb7 se04wZLeb8O6eNI1 O9PxQBSjmjduwEOeyJnp YE1kGMWajhrqBVMkeM4z TIDvS0c7ZcBuXpQ5NLft Z6MwqmY1MSPsiVXm FTaqMSO8F24be7P6SJNg KYUjQII8sMA4bV7tkOty bjogbGVmdDsgdmVydGlj HPzwPZgyS793YGCb oVfoGOLsgJ0sJGUndEPv gChtLW4aPQQibntdTdzX UkQsIFNBTUFOVEhBIFI8 S8ArDay7GLWdmCcj AF2ucHOpCWusCy8njWtu nSzgWI8wPVJydtplVYMl dG2vVGPdrYBcyGqrUQ6x BTXunutmm771VdGt SUZ2UZBzxWPyR4IqdK3s SqGxCNAoHQRqW8MneQMx CGlpZ052CWkdIvZ2YXZi xhIkB2MoYKOwwXbp VbW1e3Z7Nl3uWM0dNO9n HIp6KD63JO43uKRpa3M4 vKW2Q3ZqHNWirvqlgpow vAV9DSTkHGMswS53 xJVtILyqRd5mh6J0g130 IONoZQYmdF01Vq7eyLoj QXLhlSBDwS4gpgxtr5mz cjogIzAwMDAwMDt0 WQj7UBKqfYktGiUdKON3 WnR6ZGP1cYAqbY5kaUrm sereuN0rNvf+MzQgWWVh zoP4G9XfMjq6SQIp aJnmSW1acUYpIYilMm7o oXnalYwsGZ1dCPVzmcdw WPQlpL8wIXDvkPEfuXfy SS2aTQMwpbpud675 AnCaDMV0IVYtqMJvI1Db qV3wPvCmLKRwCDNyR6Lx mBTrVIjhL258EMmnRtT0 SAGamtIvN1OtZCIf iDsjVoH2j3Z4Pe9VBD9n rCQ6Q8PyKtg7RQGhjAwf SS4cgJYbJLwsEo8tsNyo vCmhJO6cVRWmyutw BKSrfB4uGIZluMSxuAxs LF1lLXBldtigc352AlZs UCT4AOZpcQAtW6KnbP5s KuLiBMIeUGWeR8De mXJtMTjdL624XLirFuY2 UVPdbkFdH0AhBWIctDle PoX9u5W3Dq6QpLAoR7Zo N3q1M3DwZrgfoNV+ NY45VUIpZE80lWEjlINt n4sddPy8NsDiLPDtEJE9 pZbuYYrrm0KbKXNdD28n jSSoc5H8NGLkdSwx vHDiWuRuvNB7eM0uETem nqtie1njrktcVuhcn0mw vm96dJ48W00fEGneHDMb PSIzMCUiIHZhbGln tt0bpM8sUi1+PGNvbCB3 zSE4tK8mIzGaRcL5RKyj K268UrGnjOKeXgbqj9ru p1abrLh6YbKtQLLi nzDnxWsfHZL0v0RfKa58 M95yCEgrKYNuYONhAXYa WVUnePmvjb9jxW5wIc2+ PS0vr3xlkd83eM62 dHI+HMWoGJK1qTbrMLrh DASqwM1nJXoqLnR6FCPv WeWpmC63kMWkUYywTi3h bBxaqBmdWC6aEMOy qcabk047LnCkq3siJAAh jJVuSSqpRCZ3W93qz5C3 AVXvKYFaCMJ7jUJ5sO5n bGlnbjogbGVmdDsg yfZalPmdXPexSXaaW165 EVIziQwwEjDbvXIdP3tq bhFDAU5fTwexfWQ+PHRk ELA9aUmmOJpxCLXk kJ8jCMTgK1h3RvHbEyM6 RWheN4BeklJ7KJRghRVr UZRqeNEIuQ2yrcgqo2pk cjogIzAwMDAwMDt0 VQa6KJAgmZzxLiHgRCC8 KdD6NCA4xGTtkF5sjXia xjhtmK9kXyy+RklOOjwv dGQ+HRCuORK2jPyq JIssGFClcP0eTAUkR2c1 PhCwQsT5OGvhB4FigkL0 PBYmhYRlHKLsvGMCmU1i yxpfx4evkkcfHaLy EZHdYUq1TYe1HCSsnOmr WzVhFKH1LzT1BGU4pRSb xA2hzUpxzcesuG9eHol+ TVJOOjwvdGQ+PHRk OUG2cUsfUVviKATtbQ5o LLFtK7k7KiOcUpP2ITqq I4WpybD4KUWsqAOhTXKf lURFaH2nzanqr9va nwkbGsWlTFPfAEt2NDs1 UFKopAaeBjLrNYQ9SyC2 WTF3mIWigH3whCydmkay cQ6lHqt+IZG5XPC3 BV69VO84O2PvIblquNEa bGU+PHRhYmxlIHdpZHRo ZEidDDLaSvLgwTzoYI4t Ns2iVXRzTBYzbTtl cHNl (more content not included)... Normal [facility] XR Chest 2 Viewson XR Chest 2 [...] M.D. Transcribed by: LACY Technologist: AO Normal [facility] Consent for Treatmenton Consent for Treatment [id number] #1.00CD:127 Normal [facility] Discharge Instructionson Discharge Instructions [id number]#1.00CD:127 Normal [facility] ED Clinical Summaryon 2022 ED Clinical Summary [place] [id number] ED Clinical Summary Person Information Name: HARSH ARANGO [facility]anne[facility] Age: 32 Years : 1990 Sex: Female Language: Barbadian PCP: Joaquim Osuna DO Marital Status: Single Phone: [phone] Visit Id: Visit Reason: Sinus Pain/Congestion; Cough; [...] 10/19/2022 18:40:12 10/19/2022 18:40:12 10/19/2022 18:40:12 ADDRESS: [facility] [place] [id number] PHYS DOC NOTES: MEDICAL INFORMATION: Prescriptions Given: New Medications [facility] [employer] [facility], [address], [place] [id number], [phone] azithromycin (azithromycin 250 mg Tab 5-day Dose Pack (Z-Abe)) 1 Packets By Mouth As Directed for 5 Days. as directed on package labeling. Refills: 0. predniSONE (predniSONE 50 mg Tab) 1 Tablets By Mouth every day for 5 Days. Refills: 0. Medications to Continue with No Changes Other Medications acetaminophen-hydroc odone ([place] 325 mg-5 mg oral tablet) 1-2 tab(s) [...] Acute Bronchitis, Adult; Upper Respiratory Infection, Adult, Iuja-ic-Vzzs Follow up: With: Address: When: Joaquim Osuna [address] [place], [place] [address]lorie Painter, [facility] [address] [place] [address] [facility] ([employer] In 3 days 10/22/2022 Comments: Follow-up with your primary care provider in 3 to 5 days. If symptoms worsen, do not improve, or new symptoms arise please report back to emergency department for further evaluation. DIAGNOSIS: Bronchitis Normal [facility] ED Patient Education Noteon 10-19-2022 ED Patient [...] other clear broths. General instructions ? Take onyg-etc-tltmkgs and prescription medicines only as told by [...] not have soap and water, use hand check clerk. ? Avoid touching your mouth, face, eyes, [...] get better within 7?10 days. ? Take fxtd-uih-qzhmsso and prescription medicines only as told by your doctor. This information is not intended to replace advice given to you by your health care provider. Make sure you discuss any questions you have with your health care provider. Document Released: 03/21/2009 Document Revised: 10/11/2019 Document Reviewed: 05/26/2018 [employer] Patient Education ? 2019 [employer]. Pulmonary Medicine Acute Bronchitis, Adult Acute bronchitis [...] A fe (more content not included)... Normal [facility] ED Patient Summaryon 023 ED Patient Summary [address] [address] Patient Discharge Instructions Person Information Name: HARSH ARANGO Age: 32 Years Arrival Date: 10/19/2022 16:52:07 Discharge Diagnosis: Bronchitis Primary Care Physician: Joaquim Osuna DO Provider Information Primary Provider: Chucho Kwon DO Advanced Tooth Polisher:None The exam and treatment you received in the Emergency Department were for an urgent problem and are not intended as complete care. It is important that you follow up with a doctor, nurse practitioner, or physician?s operator/assistant foreman for ongoing care. If your symptoms become [...] With: Address: Edmundo: Joaquim Painter, [address] [facility] [place] [address] [employer] (1) In 3 days 10/22/2022 Comments: Follow-up [...] Acute Bronchitis, Adult; Upper Respiratory Infection, Adult, Ykuz-ya-Ayzq A MESSAGE TO ALL PATIENTS REGARDING OPIOIDS PRESCRIPTION OPIOIDS: WHAT YOU NEED TO KNOW Prescription opioids can be used to help relieve josjmfhc-eh-nozfqs pain and are often prescribed following a [...] the risk (more content not included)... Normal [facility] MICRO OTHER TESTSOrdered By: Tamar Banks on 10-19-2022 Rapid COV Int NEG Ctl Pass (10/19/22 5:12 PM) Normal [facility] Man Sero Rapid COV Int POS Ctl Pass (10/19/22 5:12 PM) Normal [facility] Man Sero SARS-CoV+SARS-CoV-2 (COVID-19) Ag IA.rapid Ql (Resp) Not Detected (10/19/22 5:12 PM) Normal Not Detected [facility]ero Rapid COVID Antigen ([facility])on 10-19-2022 Rapid COV Int NEG Ctl Pass Normal [facility] Comment on above: Performed By: #### 2 [id number] #### [facility] [address] [place] [address] Rapid COV Int POS Ctl Pass Normal [facility] Comment on above: Performed By: #### 2 [id number] #### [facility] [address] [place] [address] SARS-CoV+SARS-CoV-2 (COVID-19) Ag IA.rapid Ql (Resp) Not detected Normal Not Detected [facility] Comment on above: Result Comment: The [employer]? System for Rapid Detection of SARS-CoV-2 is [...] or revoked sooner. Performed By: #### 2 [id number] #### [facility] [address] [place] [address] ADMITTED TO INTENSIVE CARE UNIT FOR CONDITION OF INTEREST:FIND:PT: NO Normal [facility] Comment on above: Performed By: #### 2 [id number] #### [facility] [address] [place] [address] EMPLOYED IN A HEALTHCARE SETTING:FIND:PT: NO Normal [facility] Comment on above: Performed By: #### 2 [id number] #### [facility] [address] [place] [address] FIRST TEST FOR CONDITION OF INTEREST:FIND:PT: NO Normal [facility] Comment on above: Performed By: #### 2 [id number] #### [facility] [address] [place] [address] HAS SYMPTOMS RELATED TO CONDITION OF INTEREST:FIND:PT: YES Normal [facility] Comment on above: Performed By: #### 2 [id number] #### [facility] [address] [place] [address] HOSPITALIZED FOR CONDITION OF INTEREST:FIND:PT: NO Normal [facility] Comment on above: Performed By: #### 2 [id number] #### [facility] [address] [place] [address] STATUS:FIND:PT: NO Normal [facility] Comment on above: Performed By: #### 2 [id number] #### [facility] [address] [place] [address] RESIDES IN A CONGREGATE CARE SETTING:FIND:PT: NO Normal [facility] Comment on above: Performed By: #### 2 [id number] #### [facility] [address] [place] [address] CBC AUTO DIFFon 10-17-2021 BASO # 0.0 103/ul Normal 0.0-0.1 [facility] Comment on above: Performed By: #### C BC #### [facility] [address] [place] [address] Dr. Marianne Mojica Basophils/100 WBC (Bld) 0.4 % Normal 0.2-2.0 [facility] Comment on above: Performed By: #### C BC #### [facility] [address] [place] [address] Dr. Marianne Mojica EO # 0.1 103/ul Normal 0.0-0.7 [facility] Comment on above: Performed By: #### C BC #### [facility] [address] [place] [address] Dr. Mraianne Mojica Eosinophils/100 WBC (Bld) 1.1 % Normal 0.9-7.0 [facility] Comment on above: Performed By: #### C BC #### [facility] [address] [place] [address] Dr. Marianne Mojica Erythrocyte distribution width (RBC) [Ratio] 13.2 % Normal 11.0-15.0 [facility] Comment on above: Performed By: #### C BC #### [facility] [address] [place] [address] Dr. Marianne Mojica Hematocrit (Bld) [Volume fraction] 33.5 % Critically low 36.0-48.0 [facility] Comment on above: Performed By: #### C BC #### [facility] [address] [place] [address] Dr. Marianne Mojica Hemoglobin (Bld) [Mass/Vol] 11.1 g/dL Critically low 12.0-16.0 [facility] Comment on above: Performed By: #### C BC #### [facility] [address] [place] [address] Dr. Marianne Mojica IG # 0.05 10e3/ul Critically high 0.00-0.03 [facility] Comment on above: Performed By: #### C BC #### [facility] [address] [place] [address] Dr. Marianne Mojica IG % 0.5 % Normal 0.0-0.5 [facility] Comment on above: Performed By: #### C BC #### [facility] [address] [place] [address] Dr. Marianne Mojica LYMPH # 2.8 103/ul Normal 1.2-3.8 [facility] Comment on above: Performed By: #### C BC #### [facility] [address] [place] [address] Dr. Marianne Mojica Lymphocytes/100 WBC (Bld) 29.9 % Normal 20.5-60.0 [facility] Comment on above: Performed By: #### C BC #### [facility] [address] [place] [address] Dr. Marianne Mojica MANUAL DIFF REQ NO Normal [facility] Comment on above: Performed By: #### C BC #### [facility] [address] [place] [address] Dr. Marianne Mojica MCH (RBC) [Entitic mass] 31.6 pg Normal 26.7-34.0 [facility] Comment on above: Performed By: #### C BC #### [facility] [address] [place] [address] Dr. Marianne Mojica MCHC (RBC) [Mass/Vol] 33.1 g/dL Normal 29.9-35.2 [facility] Comment on above: Performed By: #### C BC #### [facility] [address] [place] [address] Dr. Marianne Mojica MCV (RBC) [Entitic vol] 95.4 fL Normal 81.0-99.0 [facility] Comment on above: Performed By: #### C BC #### [facility] [address] [place] [address] Dr. Marianne Mojica MONO # 0.7 103/ul Normal 0.3-0.8 [facility] Comment on above: Performed By: #### C BC #### [facility] [address] [place] [address] [address] Marianne Mojica Monocytes/100 WBC (Bld) 7.3 % Normal 1.7-12.0 [facility] Comment on above: Performed By: #### C BC #### [facility] [address] [place] [address] [address] Marianne Mojica NEUT # 5.6 103/ul Normal 1.4-6.5 [facility] Comment on above: Performed By: #### C BC #### [facility] [address] [place] [address] Dr. Marianne Mojica Neutrophils/100 WBC (Bld) 60.8 % Normal 43.0-75.0 [facility] Comment on above: Performed By: #### C BC #### [facility] [address] [place] [address] Dr. Marianne Mojica Platelet mean volume (Bld) [Entitic vol] 9.8 fL Normal 9.5-13.5 [facility] Comment on above: Performed By: #### C BC #### [facility] [address] [place] [address] Dr. Marianne Mojica PLT 188 103/ul Normal 150-450 [facility] Comment on above: Performed By: #### C BC #### [facility] [address] [place] [address] Dr. Marianne Mojica RBC 3.51 106/ul Critically low 4.20-5.40 [facility] Comment on above: Performed By: #### C BC #### [facility] [address] [place] [address] Dr. Marianne Mojica WBC 9.2 103/ul Normal 4.0-11.0 [facility] Comment on above: Performed By: #### C BC #### [facility] [address] [place] [address] Dr. Marianne Mojica CBC AUTO DIFFon 10-15-2021 BASO # 0.0 103/ul Normal 0.0-0.1 [facility] Comment on above: Performed By: #### C BC #### [facility] [address] [place] [address] [address] Marianne Mojica Basophils/100 WBC (Bld) 0.2 % Normal 0.2-2.0 [facility] Comment on above: Performed By: #### C BC #### [facility] [address] [place] [address] [address] Marianne Mojica EO # 0.1 103/ul Normal 0.0-0.7 [facility] Comment on above: Performed By: #### C BC #### [facility] [address] [place] [address] [address] Marianne Mojica Eosinophils/100 WBC (Bld) 0.6 % Critically low 0.9-7.0 [facility] Comment on above: Performed By: #### C BC #### [facility] [address] [place] [address] Dr. Marianne Mojiac Erythrocyte distribution width (RBC) [Ratio] 13.2 % Normal 11.0-15.0 [facility] Comment on above: Performed By: #### C BC #### [facility] [address] [place] [address] Dr. Marianne Mojica Hematocrit (Bld) [Volume fraction] 37.2 % Normal 36.0-48.0 [facility] Comment on above: Performed By: #### C BC #### [facility] [address] [place] [address] Dr. Marianne Mojica Hemoglobin (Bld) [Mass/Vol] 12.2 g/dL Normal 12.0-16.0 [facility] Comment on above: Performed By: #### C BC #### [facility] [address] [place] [address] Dr. Marianne Mojica IG # 0.04 10e3/ul Critically high 0.00-0.03 [facility] Comment on above: Performed By: #### C BC #### [facility] [address] [place] [address] Dr. Marianne Mojica IG % 0.4 % Normal 0.0-0.5 [facility] Comment on above: Performed By: #### C BC #### [facility] [address] [place] [address] Dr. Marianne Mojica LYMPH # 2.6 103/ul Normal 1.2-3.8 [facility] Comment on above: Performed By: #### C BC #### [facility] [address] [place] [address] Dr. Marianne Mojica Lymphocytes/100 WBC (Bld) 27.0 % Normal 20.5-60.0 [facility] Comment on above: Performed By: #### C BC #### [facility] [address] [place] [address] Dr. Marianne Mojica MANUAL DIFF REQ NO Normal [facility] Comment on above: Performed By: #### C BC #### [facility] [address] [place] [address] Dr. Marianne Mojica MCH (RBC) [Entitic mass] 31.1 pg Normal 26.7-34.0 [facility] Comment on above: Performed By: #### C BC #### [facility] [address] [place] [address] Dr. Marianne Mojica MCHC (RBC) [Mass/Vol] 32.8 g/dL Normal 29.9-35.2 [facility] Comment on above: Performed By: #### C BC #### [facility] [address] [place] [address] Dr. Marianne Mojica MCV (RBC) [Entitic vol] 94.9 fL Normal 81.0-99.0 [facility] Comment on above: Performed By: #### C BC #### [facility] [address] [place] [address] Dr. Marianne Mojica MONO # 0.8 103/ul Normal 0.3-0.8 [facility] Comment on above: Performed By: #### C BC #### [facility] [address] [place] [address] Dr. Marianne Mojica Monocytes/100 WBC (Bld) 7.8 % Normal 1.7-12.0 [facility] Comment on above: Performed By: #### C BC #### [facility] [address] [place] [address] Dr. Marianne Mojica NEUT # 6.2 103/ul Normal 1.4-6.5 [facility] Comment on above: Performed By: #### C BC #### [facility] [address] [place] [address] Dr. Marianne Mojica Neutrophils/100 WBC (Bld) 64.0 % Normal 43.0-75.0 [facility] Comment on above: Performed By: #### C BC #### [facility] [address] [place] [address] Dr. Marianne Mojica Platelet mean volume (Bld) [Entitic vol] 10.5 fL Normal 9.5-13.5 [facility] Comment on above: Performed By: #### C BC #### [facility] [address] [place] [address] Dr. Marianne Mojica PLT 210 103/ul Normal 150-450 [facility] Comment on above: Performed By: #### C BC #### [facility] [address] [place] [address] Dr. Marianne Mojica RBC 3.92 106/ul Critically low 4.20-5.[address] [facility] Comment on above: Performed By: #### C BC #### [facility] [facility] [address] [place] [address] Dr. Marianne Mojica WBC 9.7 103/ul Normal 4.0-11.0 [facility] Comment on above: Performed By: #### C BC #### [facility] [address] [place] [address] Dr. Marianne Mojica [facility]18 SARS-CoV-2 (COVID-19) RNA VIRA+probe Ql (Unsp spec) Not detected Normal NOT DETECTED [facility] Comment on above: Result Comment: When diagnostic [...] for this test is supported by the [employer] of [employer] and Human Service's declaration that [...] used). Performed By: #### R PRQ #### [facility] [address] [place] [address] DRUG SCREEN RAPID (URINE)on 10-15-2021 AMP Negative Normal NEGATIVE [facility] Comment on above: Performed By: #### R PRQ #### [facility] [address] [place] [address] Carlos Della BAR Negative Normal NEGATIVE [facility] Comment on above: Performed By: #### R PRQ #### [facility] [address] [place] [address] Della BUP Negative Normal NEGATIVE [facility] Comment on above: Performed By: #### R PRQ #### [facility] [address] [place], [place] [address] BZO Negative Normal NEGATIVE [facility] Comment on above: Performed By: #### R PRQ #### [facility] [address] [place], [place] [address] BREE Negative Normal NEGATIVE [facility] Comment on above: Performed By: #### R PRQ #### [facility] [address] [place] [address] CUT-OFFS SEE BELOW Normal [facility] Comment on above: Result Comment: AMP (Amphetamine): 500ng/mL, BAR (Barbituates): 200 ng/mL, BZO (Benzodiazepines): 150 ng/mL, BUP (Buprenorphine): 10 ng/mL, BREE (Cocaine): 150 ng/mL, mAMP (Methamphetamine): 500 ng/mL, MTD (Methadone): 200 ng/mL, OPI (Opiates): 100 ng/mL, OXY (Oxycodone): 100 ng/mL, PCP (Phencyclidine): 25 ng/mL, PPX (Propoxyphene): 300 ng/mL, THC (Cannabinoids): 50 ng/mL, TCA (Trycyclic Antidepressants): 300 ng/mL Performed By: #### R PRQ #### [facility] [address] [place] [address] DRUG CUT HEADER DRUG CLASS TEST SYSTEM CUT-OFF CONCENTRATIONS ARE FOLLOWS: Normal [facility] Comment on above: Performed By: #### R PRQ #### [facility] [address] [place] [address] Carlos Della mAMP Negative Normal NEGATIVE [facility] Comment on above: Performed By: #### R PRQ #### [facility] [address] [place] [address] Carlos Della MTD Negative Normal NEGATIVE [facility] Comment on above: Performed By: #### R PRQ #### [facility] [address] [place] [address] Carlos Della OPI Negative Normal NEGATIVE [facility] Comment on above: Performed By: #### R PRQ #### [facility] [address] [place] [address] Carlos Della OXY Negative Normal NEGATIVE [facility] Comment on above: Performed By: #### R PRQ #### [facility] [address] [place] [address] Carlos Della PCP Negative Normal NEGATIVE [facility] Comment on above: Performed By: #### R PRQ #### [facility] [address] [place], [place] [address] PPX Negative Normal NEGATIVE [facility] Comment on above: Performed By: #### R PRQ #### [facility] [address] [place] [address] Carlos Della TCA Negative Normal NEGATIVE [facility] Comment on above: Performed By: #### R PRQ #### [facility] [address] [place] [address] Carlos Hull THC Negative Normal NEGATIVE [facility] Comment on above: Performed By: #### R PRQ #### [facility] [address] [place] [address] Carlos Hull TYPE AND SCREENon 10-15-2021 TYPE AND SCREEN Negative Normal [facility] Comment on above: Performed By: #### R PRQ #### [facility] [address] [place] [address] Carlos Hull US PREG BIOPHY W NON [...] AYDE MIN Date: 2021-10-07 13:52 Normal [facility] CHLAMYDIA/GONOCOCCUS VIRA (SW AB/URINE/PAPon 10-06-2021 Chlamydia trachomatis, VIRA Negative Normal Negative [facility] Comment on above: Performed By: #### C T/NGNA #### [facility] [address] [place] [address] Dr. Marianne Mojica Neisseria gonorrhoeae, VIRA Negative Normal Negative [facility] Comment on above: Performed By: #### C T/NGNA #### [facility] [address] [place] [address] Dr. Marianne Mojica VAGINITIS/VAGINOSIS DNA PROB Travon 10-04-2021 Tory species Negative Normal Negative [facility] Comment on above: Performed By: #### R UBIGG #### [facility] [address] [place] [address] Carlosgaurang Hull Gardnerella vaginalis Negative Normal Negative [facility] Comment on above: Performed By: #### R UBIGG #### [facility] [address] [place] [address] Carlos Hull Trichomonas vaginalis Negative Normal Negative [facility] Comment on above: Performed By: #### R UBIGG #### [facility] [address] [place] [address] Carlos Hull GROUP B STREP CULTUREon 09-16 S. agalactiae Ag Ql (Unsp spec) Culture Observations: NEGATIVE FOR GROUP B STREPTOCOCCUS. Normal [facility] Comment on above: Performed By: #### G BSCX #### [facility] [address] [place] [address] Dr. Marianne Mojica US PREG PLACENTAon US [...] AYDE MIN Date: 2021-07-29 12:05 Normal [facility] GLUCOSE - 1HRon 07-11-2021 Glucose [Mass/Vol] 71 mg/dL Critically low 74-106 Th e [facility] Comment on above: Performed By: #### R UBIGG #### [facility] [address] [place] [address] Carlos Hull HEMOGRAM AND PLATELon 2020 Hematocrit (Bld) [Volume fraction] 36.2 % Normal 36.0-48.0 [facility] Comment on above: Performed By: #### R UBIGG #### [facility] [address] [place] [address] Carlos Della Hemoglobin (Bld) [Mass/Vol] 11.8 g/dL Critically low 12.0-16.0 [facility] Comment on above: Performed By: #### R UBIGG #### [facility] [address] [place] [address] Carlos Hull MCH (RBC) [Entitic mass] 31.4 pg Normal 26.7-34.0 [facility] Comment on above: Performed By: #### R UBIGG #### [facility] [address] [phone] Carlos Hull MCHC (RBC) [Mass/Vol] 32.6 g/dL Normal 29.9-35.2 [facility] Comment on above: Performed By: #### R UBIGG #### [facility] [address] [phone] Carlos Hull MCV (RBC) [Entitic vol] 96.3 fL Normal 81.0-99.0 [facility] Comment on above: Performed By: #### R UBIGG #### [facility] [address] [phone] Carlos Hull PLT 234 103/ul Normal 150-450 [facility] Comment on above: Performed By: #### R UBIGG #### [facility] [address] [address] Carlos Hull RBC 3.76 106/ul Critically low 4.20-5.40 [facility] Comment on above: Performed By: #### R UBIGG #### [facility] [address] [phone] Carlos Hull WBC 9.1 103/ul Normal 4.0-11.0 [facility] Comment on above: Performed By: #### R UBIGG #### [facility] [address] [place], [place] [address] Carlos Hull US PREG ANATOMY SINGLEon US [...] 59th percentile by ultrasound and expected FL/AC: 0.898629 FL/BPD: 0.271457 HC/AC: 1.366388 GESTATIONAL AGE: Age by EDC: 20 weeks, 0 days NELA by EDC: 10/22/2021 Age by current US: 20 weeks, 0 days NELA by current US: 10/22/2021 IMPRESSION: 1. Single live intrauterine with growth detailed above. 2. Low-lying fundal/posterior placenta. Electronically authenticated by: AYDE MIN Date: 2021-06-04 12:07 Normal [facility] AFP MATERNAL FOR SPINA BIFID Aon 05-21-2021 AFP MoM 0.95 Normal [facility] Comment on above: Performed By: #### A FPMAT #### [facility] [address] [address] Carlos Hull AFP Value 37.7 ng/mL Normal [facility] Comment on above: Performed By: #### A FPMAT #### [facility] [address] [address] Carlosgaurang Hull AFP, Serum for Spina Bifida Report Normal [facility] Comment on above: Performed By: #### A FPMAT #### [facility] [address] [phone] Carlos Della Comment Comment Normal [facility] Comment on above: Result Comment: Shekhar Lincoln, Ph.D., [facility] Director . References: Available Upon Request. . Multiples Of Median Cutoffs For AFP Elevations Sommer 2.5 Black 2.8 IDD 2.0 Twins 4.5 Abbreviation Definitions IDD - Insulin Dep Diabetes OSBR - Open Spina Bifida Risk . For further inquiries contact [facility] at [phone]. Performed By: #### A FPMAT #### [facility] [address] [address] Carlos Hull Gest Age Collection Date 17.6 weeks Normal [facility] Comment on above: Performed By: #### A FPMAT #### [facility] [address] [place] [address] Carlos Hull Gestat, Age Based on Ultrasound Normal [facility] Comment on above: Result Comment: 11:0 on 04/02/2021 Recalculations are not recommended when gestational dating by LMP and ultrasound are within 10 days. Performed By: #### A FPMAT #### [facility] [address] [place] [address] Carlos Della Insulin Dep Diabetes No Normal [facility] Comment on above: Performed By: #### A FPMAT #### [facility] [address] [place] [address] Carlos Hull Interpretation Comment Normal [facility] Comment on above: Result Comment: Inte [...] Customer Services to discuss available options. The [employer] recommends amniocentesis be offered to women age 35 and older. Performed By: #### A FPMAT #### [facility] [address] [place] [address] Carlos Hull [age] Normal [facility] Comment on above: Performed By: #### A FPMAT #### [facility] [address] [place] [address] Carlos Hull Multiple Gestation No Normal [facility] Comment on above: Performed By: #### A FPMAT #### [facility] [address] [place] [address] Carlos Hull OSBR Risk 1 [place] [address] Normal [facility] Comment on above: Performed By: #### A FPMAT #### [facility] [address] [place], [place] [address] Carlos Hull PDF . Normal [facility] Comment on above: Performed By: #### A FPMAT #### [facility] [address] [place], [place] [address] Carlos Hull Race Normal [facility] Comment on above: Performed By: #### A FPMAT #### [facility] [address] [place], [place] [address] Carlos Hull Test Results: Negative Normal [facility] Comment on above: Performed By: #### A FPMAT #### [facility] [address] [address] Carlos Hull Cult,Urineon 05-01-2021 Cult,Urine Specimen Description .Random Urine Special Requests NOT REPORTED Culture NO GROWTH Report Status FINAL 05/01/2021 Normal [facility] Comment on above: Performed By: #### U RC #### [facility] [address] [place] [address] Clinical Leader: Sekou Fraser MD [facility] [address] [place] [address] Clinical Leader: Campos Chandra MD US PREG PLACENTAon US [...] by: YURIY WISE Date: 2021-04-30 23:35 Normal [facility] ABO/RHOrdered By: Nathaly Berry s on 04-30-2021 ABO/Rh Positive [facility] Work Phone: [facility] Work Phone: ABO/Rh(D)on 04-30-2021 ABO/Rh(D) Positive Normal [facility] Comment on above: Performed By: #### A [facility] #### [facility] [address] [place] [address] Clinical Leader: Campos Chandra MD CBC Auto DifferentialOrdered By: Nathaly Jurado on 04-30-2021 Absolute [employer] # 0.00 [facility] Work Phone: Absolute Immature Granulocyte NOT REPORTED [facility] [employer] Work Phone: Absolute Lymph # 2.70 [facility] Work Phone: Absolute [place] # 0.50 [facility] Work Phone: Basophils (Bld) [#/Vol] 0.00 10*3/uL [employer] Work Phone: Basophils/100 WBC (Bld) 0 % 0 - 2 % [employer] Work Phone: Differential Type YES [facility] [employer] Work Phone: Eosinophils/100 WBC (Bld) 0 % 0 - 5 % [facility] Work Phone: Hematocrit (Bld) [Volume fraction] 36.7 % 36 - 46 % [employer] Work Phone: Hemoglobin.gastrointesti nal spec 1 Ql (Stl) 12.5 g/dL 12.0 - 16.0 g/dL [facility] Work Phone: Immature Granulocytes NOT REPORTED 0 % [employer] Work Phone: Lymphocytes/100 WBC (Bld) 30 % 15 - 40 % [employer] Work Phone: MCH (RBC) [Entitic mass] 30.6 pg 26 - 34 pg [employer] Phone: MCHC (RBC) [Mass/Vol] 34.2 g/dL 31 - 37 g/dL [facility] [employer] Phone: MCV (RBC) [Entitic vol] 89.7 fL 80 - 100 fL [employer] Phone: Monocytes/100 WBC (Bld) 5 % 4 - 8 % [employer] Work Phone: NRBC Automated NOT REPORTED per 100 WBC [employer] [facility] Work Phone: Platelet distribution width (Bld) [Ratio] 12.8 % 12.1 - 15.2 % [employer] Phone: Platelet Estimate NOT REPORTED [employer] Phone: Platelet mean volume (Bld) [Entitic vol] NOT REPORTED 6.0 - 12.0 fL [employer] Phone: Platelets (Bld) [#/Vol] 271 10*3/uL [employer] Phone: RBC (Bld) [#/Vol] 4.09 10*6/uL 4.0 - 5.2 m/uL [employer] Phone: RBC (Bld) [#/Vol] NOT REPORTED [employer] Phone: Segmented neutrophils/100 WBC (Bld) 65 % 47 - 75 % [employer] Phone: Segs [employer] 5[employer]70 [employer] Work Phone: WBC (Bld) [#/Vol] 8.9 10*3/uL [employer] Phone: WBC (Bld) [#/Vol] NOT REPORTED [employer] Phone: [employer] Phone: CBC with Diffon 04-30-2021 Abs. Basophil 0.00 k/uL Normal 0.0-0.2 [facility] Comment on above: Performed By: #### Jaime Faria CMPX, CDP #### [facility] [address] [place], [place] [phone] Clinical Leader: Campos Chandra MD Abs.Neutrophil (Seg) 5.70 k/uL Normal 2.5-7.0 [facility] Comment on above: Performed By: #### Jaime Fraia CMPX, CDP #### [facility] [address] [place], [place] [phone] Clinical Leader: Campos Chandra MD Auto Diff Performed YES Normal [facility] Comment on above: Performed By: #### Jaime Faria CMPX, CDP #### [facility] [address] [phone] Clinical Leader: Campos Chandra MD Basophils/100 WBC (Bld) 0 % Normal 0-2 [facility] Comment on above: Performed By: #### Jaime Faria CMPX, CDP #### [facility] [address] [place], [place] [phone] Clinical Leader: Campos Chandra MD Eosinophils (Bld) [#/Vol] 0.00 10*3/uL Normal 0.0-0.4 [facility] Comment on above: Performed By: #### Jaime Faria CMPX, CDP #### [facility] [address] [place], [place] [phone] Clinical Leader: Campos Chandra MD Eosinophils/100 WBC (Bld) 0 % Normal 0-5 [facility] Comment on above: Performed By: #### Jaime Faria CMPX, CDP #### [facility] [address] [place], [place] [phone] Clinical Leader: Campos Chandra MD Erythrocyte distribution width (RBC) [Ratio] 12.8 % Normal 12.1-15.2 [facility] Comment on above: Performed By: #### Jaime Faria CMPX, CDP #### [facility] [address] [place] [address] Clinical Leader: Campos Chandra MD Hematocrit (Bld) [Volume fraction] 36.7 % Normal 36-46 [facility] Comment on above: Performed By: #### Jaime Faria, CMPX, CDP #### [facility] [address] [place] [address] Clinical Leader: Campos Chandra MD Hemoglobin (Bld) [Mass/Vol] 12.5 g/dL Normal 12.0-16.0 [facility] Comment on above: Performed By: #### Jaime Faria CMPX, CDP #### [facility] [address] [place] [address] Clinical Leader: Campos Chandra MD Lymphocytes (Bld) [#/Vol] 2.70 10*3/uL Normal 1.0-4.8 [facility] Comment on above: Performed By: #### Jaime Faria CMPX, CDP #### [facility] [address] [place] [address] Clinical Leader: Campos Chandra MD Lymphocytes/100 WBC (Bld) 30 % Normal 15-40 [facility] Comment on above: Performed By: #### Jaime Faria CMPX, CDP #### [facility] [address] [place] [address] Clinical Leader: Campos Chandra MD MCH (RBC) [Entitic mass] 30.6 pg Normal 26-34 [facility] Comment on above: Performed By: #### Jaime Faria CMPX, CDP #### [facility] [address] [place] [address] Clinical Leader: Campos Chandra MD MCHC (RBC) [Mass/Vol] 34.2 g/dL Normal 31-37 [facility] Comment on above: Performed By: #### Jaime Faria, CMPX, CDP #### [facility] [address] [place] [address] Clinical Leader: Campos Chandra MD MCV (RBC) [Entitic vol] 89.7 fL Normal 80-100 M [facility] Comment on above: Performed By: #### M G, CMPX, CDP #### [facility] [address] [place], [place] [phone] Clinical Leader: Campos Chandra MD Monocytes (Bld) [#/Vol] 0.50 10*3/uL Normal 0.0-1.0 [facility] Comment on above: Performed By: #### Jaime Faria, CMPX, CDP #### [facility] [address] [place], [place] [phone] Clinical Leader: Campos Chandra MD Monocytes/100 WBC (Bld) 5 % Normal 4-8 M [facility] Comment on above: Performed By: #### Jaime Faria, CMPX, CDP #### [facility] [address] [place], [place] [phone] Clinical Leader: Campos Chandra MD Neutrophil (Seg) 65 % Normal 47-75 [facility] Comment on above: Performed By: #### Jaime Faria, CMPX, CDP #### [facility] [address] [place], [place] [phone] Clinical Leader: Campos Chandra MD Platelets (Bld) [#/Vol] 271 10*3/uL Normal 140-450 [facility] Comment on above: Performed By: #### M G, CMPX, CDP #### [facility] [address] [place], [place] [phone] Clinical Leader: Campos Chandra MD RBC (Bld) [#/Vol] 4.09 10*6/uL Normal 4.0-5.2 [facility] Comment on above: Performed By: #### Jaime G, CMPX, CDP #### [facility] [address] [place], [place] [phone] Clinical Leader: Campos Chandra MD WBC (Bld) [#/Vol] 8.9 10*3/uL Normal 3.5-11.0 [facility] Comment on above: Performed By: #### M Bienvenido CMPX, CDP #### [facility] [address] [phone] Clinical Leader: Campos Chandra MD Abs.Imm.Granulocyte NOT REPORTED Normal 0.00-0.30 [facility] Comment on above: Performed By: #### M Bienvenido CMPX, CDP #### [facility] [address] [place] [address] Clinical Leader: Campos Chandra MD Immature Granulocyte NOT REPORTED Normal [facility] Comment on above: Performed By: #### Jaime Faria CMPX, CDP #### [facility] [address] [phone] Clinical Leader: Campos Chandra MD MPV NOT REPORTED Normal 6.0-12.0 [facility] Comment on above: Performed By: #### Jaime Faria CMPX, CDP #### [facility] [address] [phone] Clinical Leader: Campos Chandra MD NRBC Automated NOT REPORTED Normal [facility] Comment on above: Performed By: #### M Bienvenido CMPX, CDP #### [facility] [address] [phone] Clinical Leader: Campos Chandra MD Platelet Estimate NOT REPORTED Normal [facility] Comment on above: Performed By: #### Jaime Faria CMPX, CDP #### [facility] [address] [phone] Clinical Leader: Campos Chandra MD RBC morphology finding Nom (Bld) NOT REPORTED Normal [facility] Comment on above: Performed By: #### M Bienvenido CMPX, CDP #### [facility] [address] [place], [place] [phone] Clinical Leader: Campos Chandra MD WBC Morphology NOT REPORTED Normal [facility] Comment on above: Performed By: #### Jaime Faria CMPX, CDP #### [facility] [address] [place], [place] [phone] Clinical Leader: Campos Chandra MD Comp Metabolic Pr/rfx MGon 0 - Potassium [Moles/Vol] 3.5 mmol/L Low 3.7-5.3 [facility] Comment on above: Performed By: #### TORRIE Mcdonald, CDP #### [facility] [address] [place] [address] Clinical Leader: Campos Chandra MD (cont.) Normal [facility] Comment on above: Result Comment: Aver age GFR for 30-39 years old: 107 mL/min/1.73sq m Chronic Kidney Disease: <60 mL/min/1.73sq m Kidney failure: <15 mL/min/1.73sq m eGFR calculated using average adult body mass. Additional eGFR calculator available at: http://www.[employer]/multiple_crcl_2012.htm Performed By: #### TORRIE Mcdonald, CDP #### [facility] [address] [place] [address] Clinical Leader: Campos Chandra MD Albumin [Mass/Vol] 3.8 g/dL Normal 3.5-5.2 [facility] Comment on above: Performed By: #### Jaime Faria CMPX, CDP #### [facility] [address] [place] [address] Clinical Leader: Campos Chandra MD Alkaline Phos 56 U/L Normal 35-104 [facility] Comment on above: Performed By: #### Jaime Faria CMPX, CDP #### [facility] [address] [place], [place] [phone] Clinical Leader: Campos Chandra MD ALT [Catalytic activity/Vol] 13 U/L Normal 5-33 [facility] Comment on above: Performed By: #### Jaime Faria CMPX, CDP #### [facility] [address] [place] [address] Clinical Leader: Campos Chandra MD Anion gap [Moles/Vol] 10 mmol/L Normal 9-17 [facility] Comment on above: Performed By: #### Jaime Faria CMPX, CDP #### [facility] [address] [place], [place] [phone] Clinical Leader: Campos Chandra MD AST [Catalytic activity/Vol] 16 U/L Normal <32 [facility] Comment on above: Performed By: #### Jaime Faria CMPX, CDP #### [facility] [address] [place] [address] Clinical Leader: Campos Chandra MD Bilirubin [Mass/Vol] 0.23 mg/dL Low 0.30-1.20 [facility] Comment on above: Performed By: #### Jaime Faria CMPX, CDP #### [facility] [address] [place] [address] Clinical Leader: Campos Chadnra MD BUN/CRE Ratio 18 Normal 9-20 [facility] Comment on above: Performed By: #### Jaime Faria CMPX, CDP #### [facility] [address] [place] [address] Clinical Leader: Campos Chandra MD Calcium [Mass/Vol] 9.2 mg/dL Normal 8.6-10.4 [facility] Comment on above: Performed By: #### Jaime Faria CMPX, CDP #### [facility] [address] [place], [place] [id number] Clinical Leader: Campos Chandra MD Chloride [Moles/Vol] 105 mmol/L Normal 98-107 [facility] Comment on above: Performed By: #### M Bienvenido, CMPX, CDP #### [facility] [address] [place], [place] [id number] Clinical Leader: Campos Chandra MD CO2 [Moles/Vol] 23 mmol/L Normal 20-31 [facility] Comment on above: Performed By: #### M Bienvenido, CMPX, CDP #### [facility] [address] [place], [place] [id number] Clinical Leader: Campos Chandra MD Creatinine [Mass/Vol] 0.44 mg/dL Low 0.50-0.90 [facility] Comment on above: Performed By: #### Jaime Faria, CMPX, CDP #### [facility] [address] [place], [place] [id number] Clinical Leader: Campos Chandra MD GFR, Amer >60 Normal >60 [facility] Comment on above: Performed By: #### Jaime Faria, CMPX, CDP #### [facility] [address] [place], [place] [id number] Clinical Leader: Campos Chandra MD GFR,non Amer >60 Normal >60 [facility] Comment on above: Performed By: #### Jaime Faria, CMPX, CDP #### [facility] [address] [place], [place] [id number] Clinical Leader: Campos Chandra MD Glucose [Mass/Vol] 90 mg/dL Normal 70-99 [facility] Comment on above: Performed By: #### M Bienvenido, CMPX, CDP #### [facility] [address] [place], [place] [id number] Clinical Leader: Campos Chandra MD Protein [Mass/Vol] 7.0 g/dL Normal 6.4-8.3 [facility] Comment on above: Performed By: #### M G, CMPX, CDP #### [facility] [address] [place], [place] [id number] Clinical Leader: Campos Chandra MD Sodium [Moles/Vol] 138 mmol/L Normal 135-144 [facility] Comment on above: Performed By: #### M G, CMPX, CDP #### [facility] [address] [place], [place] [id number] Clinical Leader: Campos Chandra MD Urea nitrogen [Mass/Vol] 8 mg/dL Normal 6-20 [facility] Comment on above: Performed By: #### M G, CMPX, CDP #### [facility] [address] [place], [place] [id number] Clinical Leader: Campos Chandra MD Albumin/Glob Ratio NOT REPORTED Normal 1.0-2.5 [facility] Comment on above: Performed By: #### M G, CMPX, CDP #### [facility] [address] [place], [place] [id number] Clinical Leader: Campos Chandra MD Staging: NOT REPORTED Normal [facility] Comment on above: Performed By: #### M G, CMPX, CDP #### [facility] [address] [place], [place] [id number] Clinical Leader: Campos Chandra MD Comprehensive Metabolic Pane l w/ Reflex to MGOrdered By: Nathaly Patterson on 04-30-2021 Albumin [Mass/Vol] 3.8 g/dL 3.5 - 5.2 g/dL [facility] [employer] Phone: Albumin/Globulin Ratio NOT REPORTED [employer] Phone: ALP (Bld) [Catalytic activity/Vol] 56 U/L 35 - 104 U/L [employer] Phone: ALT [Catalytic activity/Vol] 13 U/L 5 - 33 U/L [employer] Phone: Anion gap [Moles/Vol] 10 mmol/L 9 - 17 mmol/L [employer] Phone: AST [Catalytic activity/Vol] 16 U/L <32 [employer] Phone: Bilirubin [Mass/Vol] 0.23 mg/dL Low 0.30 - 1.20 mg/dL [employer] Phone: Calcium [Mass/Vol] 9.2 mg/dL 8.6 - 10. 4 mg/dL [employer] Phone: Chloride [Moles/Vol] 105 mmol/L 98 - 10 7 mmol/L [employer] Phone: CO2 [Moles/Vol] 23 mmol/L 20 - 31 mmol/L [employer] Phone: Creatinine [Mass/Vol] 0.44 mg/dL Low 0.50 - 0.90 mg/dL [employer] Phone: Free PSA/Total PSA [Mass fraction] 7.0 g/dL 6.4 - 8.3 g/dL [employer] Phone: GFR >60 >60 mL/min [employer] Phone: GFR Non- >60 >60 mL/min [employer] Phone: GFR/1.73 sq M.predicted MDRD (S/P/Bld) [Vol rate/Area] [employer] Phone: Comment on above: Average GFR for 30-3 9 years old: 107 mL/min/1.73sq m Chronic Kidney Disease: <60 mL/min/1.73sq m Kidney failure: <15 mL/min/1.73sq m eGFR calculated using average adult body mass. Additional eGFR calculator available at: http://www.[employer]/multiple_crcl_2012.htm GFR/1.73 sq M.predicted MDRD (S/P/Bld) [Vol rate/Area] NOT REPORTED [employer] Phone: Glucose [Mass/Vol] 90 mg/dL 70 - 99 mg/dL [facility] [employer] Phone: Interpretation and review of laboratory results Abnormal [facility] [employer] Phone: Potassium [Moles/Vol] 3.5 mmol/L Low 3.7 - 5.3 mmol/L [facility] [employer] Phone: Sodium [Moles/Vol] 138 mmol/L 135 - 144 mmol/L [facility] [employer] Phone: Urea nitrogen (BldV) [Mass/Vol] 8 mg/dL 6 - 20 mg/dL [facility] [employer] Phone: Urea nitrogen/Creatinine (Bld) [Mass ratio] 18 [facility] [employer] Phone: [facility] [employer] Phone: Drug Scr, Abuse, Uron 2020 Amphetamine(s),Ur Negative Normal NEG [facility] Comment on above: Result Comment: (Positive cutoff 500 ng/mL) Performed By: #### U MICAO, UA, DIOGENES #### [facility] [address] [place] [address] Clinical Leader: Campos Chandra MD Barbiturate(s),Ur Negative Normal NEG [facility] Comment on above: Result Comment: (Positive cutoff 200 ng/mL) Performed By: #### U MICAO, UA, DIOGENES #### [facility] [address] [place] [phone] Clinical Leader: Campos Chandra MD Benzodiazepine(s) Negative Normal NEG [facility] Comment on above: Result Comment: (Positive cutoff 150 ng/mL) Performed By: #### U MICAO, UA, DIOGENES #### [facility] [address] [place] [address] Clinical Leader: Campos Chandra MD Cannabinoid(s),Ur Negative Normal NEG [facility] Comment on above: Result Comment: (Positive cutoff 50 ng/mL) Performed By: #### U MICAO, UA, DIOGENES #### [facility] [address] [place], [place] [address] Clinical Leader: Campos Chandra MD Cocaine Metabolite Negative Normal NEG [facility] Comment on above: Result Comment: (Positive cutoff 150 ng/mL) Performed By: #### U MICAO, UA, DIOGENES #### [facility] [address] [place] [phone] Clinical Leader: Campos Chandra MD Methadone Ql (U) Negative Normal NEG [facility] Comment on above: Result Comment: (Positive cutoff 200 ng/mL) Performed By: #### U MICAO, UA, DIOGENES #### [facility] [address] [place] [address] Clinical Leader: Campos Chandra MD Methamphetamine, Ur Negative Normal [facility] Comment on above: Result Comment: (Positive cutoff 500 ng/mL) Performed By: #### U MICAO, UA, DIOGENES #### [facility] [address] [place], [place] [phone] Clinical Leader: Campos Chandra MD Opiate(s), Ur Negative Normal [facility] Comment on above: Result Comment: (Positive cutoff 100 ng/mL) Performed By: #### U MICAO, UA, DIOGENES #### [facility] [address] [place] [phone] Clinical Leader: Campos Chandra MD Oxycodone, Urine Negative Normal NEG [facility] Comment on above: Result Comment: (Positive cutoff 100 ng/mL) Performed By: #### U MICAO, UA, DIOGENES #### [facility] [address] [place] [address] Clinical Leader: Campos Chandra MD Phencyclidine, Ur Negative Normal NEG [facility] Comment on above: Result Comment: (Positive cutoff 25 ng/mL) Performed By: #### U MICAO, UA, DIOGENES #### [facility] [address] [place] [phone] Clinical Leader: Campos Chandra MD Propoxyphene,Urine Negative Normal NEG [facility] Comment on above: Result Comment: (Positive cutoff 300 ng/mL) Performed By: #### U MICAO, UA, DIOGENES #### [facility] [address] [place] [address] Clinical Leader: Campos Chandra MD Tricyclic antidepressants Screen Ql (U) Negative Normal NEG [facility] Comment on above: Result Comment: (Positive cutoff 300 ng/mL) Drug screen results are to be used for medical purposes only. All positive results are unconfirmed. Testing for employment or legal uses should be sent to a reference laboratory for confirmation. Performed By: #### U MICAO, UA, DIOGENES #### [facility] [address] [place] [address] Clinical Leader: Campos Chandra MD Buprenorphrine, Ur NOT REPORTED Normal NEG [facility] Comment on above: Performed By: #### U MICAO, UA, DIOGENES #### [facility] [address] [place] [address] Clinical Leader: Campos Chandra MD Interpretive Info NOT REPORTED Normal [facility] Comment on above: Performed By: #### U MICAO, UA, DIOGENES #### [facility] [address] [place] [address] Clinical Leader: Campos Chandra MD MDMA, Urine NOT REPORTED Normal NEG [facility] Comment on above: Performed By: #### U MICAO, UA, DIOGENES #### [facility] [address] [place] [phone] Clinical Leader: Campos Chandra MD Drug screen multi urineOrder ed By: Nathaly Patterson on 04-30-2021 Amphetamine Screen, Ur Negative NEGATIVE [facility] [employer] Work Phone: Comment on above: (Positive cutoff 500 ng/mL) Barbiturate Screen, Ur Negative NEGATIVE [facility] Work Phone: Comment on above: (Positive cutoff 200 ng/mL) Benzodiazepine Screen, Urine Negative NEGATIVE [facility] Work Phone: Comment on above: (Positive cutoff 150 ng/mL) Buprenorphine Urine NOT REPORTED NEGATIVE [facility] Work Phone: Cannabinoid Scrn, Ur Negative NEGATIVE [facility] Work Phone: Comment on above: (Positive cutoff 50 ng/mL) Cocaine Metabolite, Urine Negative NEGATIVE [facility] Work Phone: Comment on above: (Positive cutoff 150 ng/mL) MDMA, Urine NOT REPORTED NEGATIVE [facility] Work Phone: Methadone Screen, Urine Negative NEGATIVE [facility] Work Phone: Comment on above: (Positive cutoff 200 ng/mL) Methamphetamine, Urine Negative NEGATIVE [facility] Work Phone: Comment on above: (Positive cutoff 500 ng/mL) Opiates, Urine Negative NEGATIVE [facility] Work Phone: Comment on above: (Positive cutoff 100 ng/mL) Oxycodone Screen, Ur Negative NEGATIVE [facility] Work Phone: Comment on above: (Positive cutoff 100 ng/mL) Phencyclidine, Urine Negative NEGATIVE [facility] Work Phone: Comment on above: (Positive cutoff 25 ng/mL) Propoxyphene, Urine Negative NEGATIVE [facility] Work Phone: Comment on above: (Positive cutoff 300 ng/mL) Test Information NOT REPORTED [facility] Work Phone: Tricyclic Antidepressants, Urine Negative NEGATIVE [facility] Work Phone: Comment on above: (Positive cutoff 300 ng/mL) Drug screen results are to be used for medical purposes only. All positive results are unconfirmed. Testing for employment or legal uses should be sent to a reference laboratory for confirmation. [facility] Work Phone: HCG, Quanton 04-30-2021 HCG, Quant [id number] IU/L High <5 [facility] Comment on above: Result Comment: Non-preg premeno <=5 Postmeno <=8 Male <=3 If HCG results do not concur with clinical observations, additional testing to confirm results is recommended. Elevated results not associated with may be found in patients with other diseases such as tumors of the germ cells (testis, ovaries, etc.), bladder, pancreas, stomach, lungs, and liver. Performed By: #### B HCG #### [facility] [address] [place] [address] Clinical Leader: Campos Chandra MD Magnesiumon 04-30-2021 Magnesium [Mass/Vol] 1.8 mg/dL Normal 1.6-2.6 [facility] Comment on above: Performed By: #### M G, CMPX, CDP #### [facility] [address] [place] [address] Clinical Leader: Campos Chandra MD MagnesiumOrdered By: Nathaly liu on 04-30-2021 Magnesium [Mass/Vol] 1.8 mg/dL 1.6 - 2 .6 mg/dL [facility] Work Phone: [facility] Work Phone: Microscopic UrinalysisOrdere d By: Nathaly Patterson on 04-30-2021 - [facility] Work Phone: Amorphous, UA NOT REPORTED None [facility] Work Phone: Bacteria, UA NOT REPORTED None [facility] Work Phone: Casts UA NOT REPORTED /LPF [facility] Work Phone: Crystals, UA NOT REPORTED None /HPF [facility] Work Phone: Epithelial Cells UA NOT REPORTED /HPF [facility] Work Phone: Mucus, UA NOT REPORTED None [facility] Work Phone: Other Observations UA NOT REPORTED NOT REQ. M [facility] [employer] Work Phone: RBC, UA LOADED [facility] [employer] Work Phone: Renal Epithelial, UA NOT REPORTED 0 /HPF [facility] [employer] Work Phone: Trichomonas, UA NOT REPORTED None [facility] Work Phone: WBC, UA 2 TO 5 0 /HPF [facility] [employer] Work Phone: Yeast, UA NOT REPORTED None [facility] [employer] Phone: [facility] [employer] Phone: Urinalysis, Routineon 2020 Bilirubin, SemiQt,Ur Negative Normal NEG [facility] Comment on above: Performed By: #### U MICAO, UA, DIOGENES #### [facility] [address] [place] [phone] Clinical Leader: Campos Chandra MD Blood, Urine 3+ Abnormal NEG [facility] Comment on above: Performed By: #### U MICAO, UA, DIOGENES #### [facility] [address] [place] [phone] Clinical Leader: Campos Chandra MD Clarity (U) CLOUDY Abnormal CLEAR [facility] Comment on above: Performed By: #### U MICAO, UA, DIOGENES #### [facility] [address] [place], [place] [phone] Clinical Leader: Campos Chandra MD Color (U) YELLOW Normal YEL [facility] Comment on above: Performed By: #### U MICAO, UA, DIOGENES #### [facility] [address] [place] [phone] Clinical Leader: Campos Chandra MD Comment Normal [facility] Comment on above: Performed By: #### U MICAO, UA, DIOGENES #### [facility] [address] [place] [address] Clinical Leader: Campos Chandra MD Glucose Ql (U) Negative Normal NEG [facility] Comment on above: Performed By: #### U MICAO, UA, DIOGENES #### [facility] [address] [place] [address] Clinical Leader: Campos Chandra MD Ketones Ql (U) Negative Normal NEG [facility] Comment on above: Performed By: #### U MICAO, UA, DIOGENES #### [facility] [address] [place], [place] [phone] Clinical Leader: Campos Chandra MD Leukocyte esterase Test strip Ql (U) 1+ Abnormal NEG [facility] Comment on above: Performed By: #### U MICAO, UA, DIOGENES #### [facility] [address] [place] [address] Clinical Leader: Campos Chandra MD Nitrite,Ur Negative Normal NEG [facility] Comment on above: Performed By: #### U MICAO, UA, DIOGENES #### [facility] [address] [place] [address] Clinical Leader: Campos Chandra MD PH,Ur 5.0 Normal 5.0-8.0 [facility] Comment on above: Performed By: #### U MICAO, UA, DIOGENES #### [facility] [address] [place] [address] Clinical Leader: Campos Chandra MD Protein Ql (U) 3+ Abnormal NEG [facility] Comment on above: Performed By: #### U MICAO, UA, DIOGENES #### [facility] [address] [place] [address] Clinical Leader: Campos Chandra MD Spec. [place],Ur 1.025 Normal 1.005-1.030 [facility] Comment on above: Performed By: #### U MICAO, UA, DIOGENES #### [facility] [address] [place] [address] Clinical Leader: Campos Chandra MD Urobilinogen,Ur Normal Normal NORM [facility] Comment on above: Performed By: #### U MICAO, UA, DIOGENES #### [facility] [address] [place] [address] Clinical Leader: Campos Chandra MD Urinalysis, reflex to micros copicOrdered By: Nathaly Cory on 04-30-2021 Bilirubin Urine Negative NEGATIVE [facility] Work Phone: Color, UA YELLOW YELLOW [employer] Work Phone: Glucose, Ur Negative NEGATIVE [employer] Work Phone: Interpretation and review of laboratory results Abnormal [employer] Phone: Ketones Ql (U) Negative NEGATIVE [employer] Work Phone: Leukocyte esterase Test strip Ql (U) 1+ Abnormal NEGATIVE [employer] Phone: Nitrite, Urine Negative NEGATIVE [employer] Work Phone: pH, UA 5.0 [employer] Phone: Protein, UA 3+ Abnormal NEGATIVE [employer] Phone: Specific [place], UA 1.025 [employer] Phone: Turbidity UA CLOUDY Abnormal CLEAR [employer] Phone: Urinalysis Comments [employer] Phone: Urine Hgb 3+ Abnormal NEGATIVE [employer] Phone: Urobilinogen, Urine Normal Normal [facility] Phone: [employer] Phone: Urinalysis,Microon 1 ----- Normal [facility] Comment on above: Performed By: #### U MICAO, UA, DIOGENES #### [facility] [address] [place], [place] [phone] Clinical Leader: Campos Chandra MD Urine RBC's LOADED Normal 0-2 [facility] Comment on above: Performed By: #### U MICAO, UA, DIOGENES #### [facility] [address] [place], [place] [phone] Clinical Leader: Campos Chandra MD Urine WBC's 2 TO 5 Normal 0 [facility] Comment on above: Performed By: #### U MICAO, UA, DIOGENES #### [facility] [address] [place], [place] [phone] Clinical Leader: Campos Chandra MD Amorphous sediment LM Ql (Urine sed) NOT REPORTED Normal [facility] Comment on above: Performed By: #### U MICAO, UA, DIOGENES #### [facility] [address] [place] [address] Clinical Leader: Campos Chandra MD Bacteria NOT REPORTED Normal [facility] Comment on above: Performed By: #### U MICAO, UA, DIOGENES #### [facility] [address] [place], [place] [phone] Clinical Leader: Campos Chandra MD Casts NOT REPORTED Normal [facility] Comment on above: Performed By: #### U MICAO, UA, DIOGENES #### [facility] [address] [place], [place] [phone] Clinical Leader: Campos Chandra MD Crystals LM Nom (Urine sed) NOT REPORTED Normal [facility] Comment on above: Performed By: #### U MICAO, UA, DIOGENES #### [facility] [address] [place], [place] [phone] Clinical Leader: Campos Chandra MD Epithelial cells LM Ql (Urine sed) NOT REPORTED Normal [facility] Comment on above: Performed By: #### U MICAO, UA, DIOGENES #### [facility] [address] [place], [place] [phone] Clinical Leader: Campos Chandra MD Epithelial, Renal NOT REPORTED Normal 0 [facility] Comment on above: Performed By: #### U MICAO, UA, DIOGENES #### [facility] [address] [place] [address] Clinical Leader: Campos Chandra MD Mucus Strands NOT REPORTED Normal NONE [facility] Comment on above: Performed By: #### U MICAO, UA, DIOGENES #### [facility] [address] [place] [address] Clinical Leader: Campos Chandra MD Other Observations NOT REPORTED Normal NREQ [facility] Comment on above: Performed By: #### U MICAO, UA, DIOGENES #### [facility] [address] [place] [address] Clinical Leader: Campos Chandra MD Trichomonas NOT REPORTED Normal NONE [facility] Comment on above: Performed By: #### U MICAO, UA, DIOGENES #### [facility] [address] [place] [address] Clinical Leader: Campos Chandra MD Yeast NOT REPORTED Normal [facility] Comment on above: Performed By: #### U MICAO, UA, DIOGENES #### [facility] [address] [place] [address] Clinical Leader: Campos Chandra MD hCG, quantitative, Ordered By: Nathaly Patterson on 04-30-2021 hCG Quant [id number] High <5 IU/L [facility] Work Phone: Comment on above: Non-preg [...] Interpretation and review of laboratory results Abnormal [employer] Phone: [employer] Phone: RPR QUANTon 04-12-2021 Rapid Plasma Reagin, Quant Non-Reactive Normal NonRea<1:1 [facility] Comment on above: Performed By: #### R PRQ #### [facility] [address] [place] [address] Carlos Hull HEP B SURFACE ANTIGEN SCREEN on 04-11-2021 HBsAg Screen Negative Normal Negative [facility] Comment on above: Performed By: #### R UBIGG #### [facility] [address] [place] [address] Carlos Hull HEPATITIS C VIRUS AB W/ REFL EX QUANTon 04-11-2021 HCV AB <0.1 Normal 0.0-0.9 [facility] Comment on above: Performed By: #### H CVPCRR #### [facility] [address] [place] [address] Carlos Hull Interpretation: Comment Normal [facility] Comment on above: Result Comment: Nega tive Not infected with HCV, unless recent infection is suspected or other evidence exists to indicate HCV infection. Performed By: #### H CVPCRR #### [facility] [address] [place] [address] Carlos Hull HIV 1 AND 2 WITH REFLEXon HIV Screen 4th Generation wRfx Non-Reactive Normal Non Reactive [facility] Comment on above: Performed By: #### R PRQ #### [facility] [address] [place] [address] Carlos Hull RUBELLA AB IGGon 04-11-2021 Rubella Antibodies, IgG 2.95 index Normal Immune >0.99 [facility] Comment on above: Result Comment: Non- immune <0.90 Equivocal 0.90 - 0.99 Immune >0.99 Performed By: #### R UBIGG #### [facility] [address] [place] [address] Carlos Della CBC AUTO DIFFon 04-10-2021 BASO # 0.0 103/ul Normal 0.0-0.1 [facility] Comment on above: Performed By: #### R UBIGG #### [facility] [address] [place] [address] Carlos Della Basophils/100 WBC (Bld) 0.3 % Normal 0.2-2.0 [facility] Comment on above: Performed By: #### R UBIGG #### [facility] [address] [place] [address] Carlos Della EO # 0.0 103/ul Normal 0.0-0.7 [facility] Comment on above: Performed By: #### R UBIGG #### [facility] [address] [place] [address] Carlos Della Eosinophils/100 WBC (Bld) 0.5 % Critically low 0.9-7.0 [facility] Comment on above: Performed By: #### R UBIGG #### [facility] [address] [place] [address] Carlos Della Erythrocyte distribution width (RBC) [Ratio] 12.3 % Normal 11.0-15.0 [facility] Comment on above: Performed By: #### R UBIGG #### [facility] [address] [place] [address] Carlos Della Hematocrit (Bld) [Volume fraction] 39.2 % Normal 36.0-48.0 [facility] Comment on above: Performed By: #### R UBIGG #### [facility] [address] [place] [address] Carlos Della Hemoglobin (Bld) [Mass/Vol] 13.0 g/dL Normal 12.0-16.0 [facility] Comment on above: Performed By: #### R UBIGG #### [facility] [address] [place] [address] Carlos Della IG # 0.01 10e3/ul Normal 0.00-0.03 [facility] Comment on above: Performed By: #### R UBIGG #### [facility] [address] [place] [id number] Carlos Della IG % 0.2 % Normal 0.0-0.5 [facility] Comment on above: Performed By: #### R UBIGG #### [facility] [address] [place] [address] Carlos Della LYMPH # 1.7 103/ul Normal 1.2-3.8 [facility] Comment on above: Performed By: #### R UBIGG #### [facility] [address] [place] [address] Carlos Della Lymphocytes/100 WBC (Bld) 25.5 % Normal 20.5-60.0 [facility] Comment on above: Performed By: #### R UBIGG #### [facility] [address] [place] [address] Carlos Della MANUAL DIFF REQ NO Normal [facility] Comment on above: Performed By: #### R UBIGG #### [facility] [address] [place], [place] [id number] Carlos Della MCH (RBC) [Entitic mass] 30.2 pg Normal 26.7-34.0 [facility] Comment on above: Performed By: #### R UBIGG #### [facility] [address] [place] [address] Carlos Della MCHC (RBC) [Mass/Vol] 33.2 g/dL Normal 29.9-35.2 [facility] Comment on above: Performed By: #### R UBIGG #### [facility] [address] [place] [address] Carlos Della MCV (RBC) [Entitic vol] 91.2 fL Normal 81.0-99.0 [facility] Comment on above: Performed By: #### R UBIGG #### [facility] [address] [place] [address] Carlos Della MONO # 0.6 103/ul Normal 0.3-0.8 [facility] Comment on above: Performed By: #### R UBIGG #### [facility] [address] [place], [place] [address] Carlos Della Monocytes/100 WBC (Bld) 8.7 % Normal 1.7-12.0 [facility] Comment on above: Performed By: #### R UBIGG #### [facility] [address] [place], [place] [address] Carlos Della NEUT # 4.2 103/ul Normal 1.4-6.5 [facility] Comment on above: Performed By: #### R UBIGG #### [facility] [address] [place], [place] [address] Carlos Della Neutrophils/100 WBC (Bld) 64.8 % Normal 43.0-75.0 [facility] Comment on above: Performed By: #### R UBIGG #### [facility] [address] [place], [place] [address] Carlos Della Platelet mean volume (Bld) [Entitic vol] 9.2 fL Critically low 9.5-13.5 [facility] Comment on above: Performed By: #### R UBIGG #### [facility] [address] [place], [place] [address] Carlos Della PLT 246 103/ul Normal 150-450 [facility] Comment on above: Performed By: #### R UBIGG #### [facility] [address] [place], [place] [address] Carlos Della RBC 4.30 106/ul Normal 4.20-5.40 [facility] Comment on above: Performed By: #### R UBIGG #### [facility] [address] [place], [place] [address] Carlos Della WBC 6.5 103/ul Normal 4.0-11.0 [facility] Comment on above: Performed By: #### R UBIGG #### [facility] [address] [place], [place] [address] Carlos Della CULTURE URINEon 04-10-2021 CULTURE URINE Culture Observations: NO GROWTH Normal [facility] Comment on above: Performed By: #### R PRQ #### [facility] [address] [place], [place] [address] Carlos Hull GLYCOHEMOGLOBIN A1Con 2020 ADA RECOMMENDATION ADA THERAPEUTIC TARGET 6.0 - 7.0 ACTION SUGGESTED > 7.0 Normal [facility] Comment on above: Performed By: #### R UBIGG #### [facility] [address] [place], [place] [address] Carlos Hull Glucose [Mass/Vol] 94 mg/dL Normal [facility] Comment on above: Performed By: #### R UBIGG #### [facility] [address] [place], [place] [address] Carlos Hull HbA1c (Bld) [Mass fraction] 4.9 % Normal <=6.0 [facility] Comment on above: Performed By: #### R UBIGG #### [facility] [address] [place] [address] Carlos Hull BENJAMIN BOX TEST PT SEND OUTo n 04-10-2021 SENT TO REF LAB 04/10/[address] [facility] Comment on above: Performed By: #### R UBIGG #### [facility] [address] [place], [place] [address] Carlos Della TYPE AND SCREENon 04-10-2021 TYPE AND SCREEN Negative Normal [facility] Comment on above: Performed By: #### T NS #### [facility] [address] [place] [address] Carlos Hull US PREG TVon 04-02-2021 US [...] by: AYDE MIN Date: 2021-04-02 09:55 Normal [facility] PAP ACOG PANEL 2: 30 to 65on 12-31-2020 . . Normal [facility] Comment on above: Result Comment: Perf ormed at: WB Performed By: #### [id number] #### [facility] [address] [place] [address] Carlosgaurang Hull Age Gdln ACOG Testing 30-65 Normal [facility] Comment on above: Performed By: #### [id number] #### [facility] [address] [place] [address] Carlos Hull DIAGNOSIS: Comment Abnormal [facility] Comment on above: Result Comment: EPIT HELIAL CELL ABNORMALITY. LOW GRADE SQUAMOUS INTRAEPITHELIAL LESION (LSIL). PREDOMINANCE OF COCCOBACILLI CONSISTENT WITH SHIFT IN VAGINAL MARA IS PRESENT. Performed at: WB Performed By: #### [id number] #### [facility] [address] [place] [address] Carlos Hull Electronically signed by: Comment Normal [facility] Comment on above: Result Comment: Mavis Sharma MD, Pathologist Performed at: WB Performed By: #### [id number] #### [facility] [address] [place] [address] Carlos Hull HPV Aptima Positive Abnormal Negative [facility] Comment on above: Result Comment: This nucleic acid amplification test detects fourteen high-risk HPV types (16,18,31,33,35,39,45,51,52,56,58,59,66,68) without differentiation. Performed at: =G Performed By: #### [id number] #### [facility] [address] [place] [address] Carlos Hull Methodology: Comment Normal [facility] Comment on above: Result Comment: This liquid based ThinPrep(R) pap test was screened with the use of an image guided system. Performed at: WB Performed By: #### [id number] #### [facility] [address] [place] [address] Carlos Hull Note: Comment Normal [facility] Comment on above: Result Comment: The Pap smear is a screening test designed to aid in the detection of premalignant and malignant conditions of the uterine cervix. It is not a diagnostic procedure and should not be used as the sole means of detecting cervical cancer. Both false-positive and false-negative reports do occur. . Performed at: WB Performed By: #### [id number] #### [facility] [address] [place] [address] Carlos Hull Pathologist Provided ICD10 Comment Normal [facility] Comment on above: Result Comment: R87. 612, R87.5 Performed at: WB Performed By: #### [id number] #### [facility] [address] [place] [address] Carlos Hull Performed by: Comment Normal [facility] Comment on above: Result Comment: Roxana Conrad, Business Machine Mechanic (ASCP) Performed at: WB Performed By: #### [id number] #### [facility] [address] [place] [address] Carlos Hull Recommendation: Comment Abnormal [facility] Comment on above: Result Comment: Sugg est follow up as clinically appropriate. Performed at: WB Performed By: #### [id number] #### [facility] [address] [place] [address] Carlos Hull Specimen adequacy: Comment Normal [facility] Comment on above: Result Comment: Sati sfactory for evaluation. Endocervical and/or squamous metaplastic cells (endocervical component) are present. Performed at: WB Performed By: #### [id number] #### [facility] [address] [place], [place] [address] Carlos Hull Vital Signs Date Time Vital Sign Value Performing Clinician Facility 10-19-2022 16:55-0500 Body temperature 98.06 [degF] Chucho Kwon [facility] 10-19-2022 16:55-0500 Diastolic blood pressure 102 mm[Hg] Chucho Kwon [facility] 10-19-2022 16:55-0500 Heart rate 91 /min Chucho Kwon [facility] 10-19-2022 16:55-0500 Respiratory rate 18 /min Chucho Kwon [facility] 10-19-2022 16:55-0500 SaO2% (BldA) [Mass fraction] 98 % Chucho Kwon [facility] 10-19-2022 16:55-0500 Systolic blood pressure 146 mm[Hg] Chucho Kwon [facility] 05-21-2021 00:06-0400 Body weight 75.[address] EL JAIME [facility] Comment on above: Performed By: #### AFPMAT #### [facility] [address] [place] [address] Carlos Hull 04-30-2021 17:33-0400 Body height 170.2 cm Nathaly Patterson MD Work Phone: [employer] Work Phone: 04-30-2021 17:33-0400 Body mass index (BMI) [Ratio] 25.98 kg/m2 Nathaly Patterson MD Work Phone: [employer] Work Phone: 04-30-2021 17:33-0400 Body temperature 97.9 [degF] Nathaly Patterson MD Work Phone: [employer] Work Phone: 04-30-2021 17:33-0400 Body weight 75.25 kg Nathaly Patterson MD Work Phone: [employer] Work Phone: 04-30-2021 17:33-0400 Diastolic blood pressure 73 mm[Hg] Nathaly Patterson MD Work Phone: [employer] Work Phone: 04-30-2021 17:33-0400 Heart rate 71 /min Nathaly Patterson MD Work Phone: [employer] Work Phone: 04-30-2021 17:33-0400 Respiratory rate 18 /min Nathaly Patterson MD Work Phone: [employer] Work Phone: 04-30-2021 17:33-0400 SaO2% (BldA) [Mass fraction] 100 % Nathaly Patterson MD Work Phone: [employer] Work Phone: 04-30-2021 17:33-0400 Systolic blood pressure 127 mm[Hg] Nathaly Patterson MD Work Phone: [employer] Work Phone: 04-08-2021 20:32-0400 Body temperature 98.2 [degF] Anthony Barba MD Work Phone: [employer] Work Phone: 04-08-2021 20:32-0400 Body weight 76.61 kg Anthony Barba MD Work Phone: [employer] Work Phone: 04-08-2021 20:32-0400 Diastolic blood pressure 76 mm[Hg] Anthony Barba MD Work Phone: [employer] Work Phone: 04-08-2021 20:32-0400 Heart rate 66 /min Anthony Barba MD Work Phone: [employer] Work Phone: 04-08-2021 20:32-0400 Respiratory rate 18 /min Anthony Barba MD Work Phone: [employer] Work Phone: 04-08-2021 20:32-0400 SaO2% (BldA) [Mass fraction] 98 % Anthony Barba MD Work Phone: [employer] Work Phone: 04-08-2021 20:32-0400 Systolic blood pressure 117 mm[Hg] Anthony Barba MD Work Phone: [facility] Work Phone: Encounters Encounter Date Encounter Type Care Provider Facility Start: 04-17-2025 End: 04-17-2025 ambulatory General acute hospital Facility:[facility] Start: 06-06-2024 End: 06-06-2024 ambulatory General acute hospital Facility:[facility] Start: 10-19-2022 End: 10-19-2022 Emergency department patient visit Chucho Kwon Facility:[facility] Start: 10-19-2022 End: 10-19-2022 Emergency department patient visit Chucho Kwon [facility] Start: 10-15-2021 End: 10-17-2021 Evaluation and [...] 04-30-2021 Emergency department patient visit NATHALY PATTERSON [facility] Start: 04-30-2021 End: 04-30-2021 Emergency department patient visit Nathaly Patterson MD Work Phone: [facility] ED Comment on above: Vaginal bleeding in (Primary Dx) Start: 04-30-2021 End: 05-01-2021 ambulatory GLEN PACKER Facility:[facility] Start: 04-10-2021 End: 04-11-[address] EL JAIME Facility:[facility] Start: 04-08-2021 End: 04-08-2021 Emergency department patient visit ANTHONY BARBA [facility] Start: 04-08-2021 End: 04-08-2021 Emergency department patient visit Anthony Barba MD Work Phone: [facility] ED Comment on above: Dental infection (Pr [...] Activity Detail Author Start: 06-17-2021 Influenza vaccination [facility] Work Phone: Start: 2000 COVID-19 Vaccine (1) COVID-19 Vaccin e (1) [facility] Work Phone: End: 04-30-2021 Culture, Urine Culture, Urine Microbiology Routine Once for 1 Occurrences starting 04/30/2021 until 04/30/2021 [employer] Phone: Comment on above: Once for 1 Occurrenc es starting 04/30/2021 until 04/30/2021 Culture, Urine Culture, Urine Microbiology Routine 04/30/2021 6:10 PM EDT [employer] Phone: Payers Date Payer Category Payer Unknown [id number] 2.16.84 [id number] 1988 Unknown [id number] 2.16.84 [id number] 1988 Unknown [id number] 2.16.84 [id number] 1988 Unknown [id number] 2.16.84 [id number] 1988 Unknown [id number] 2.16.84 [id number] 1988 Unknown [id number] 2.16.84 [id number] 1988 Unknown [id number] 2.16.84 [id number] 1988 Unknown [id number] 2.16.84 [id number] 1988 Unknown [id number] 2.16.84 [id number] 1988 Unknown [id number] 2.16.84 [id number] 1988 Unknown [id number] 2.16.84 [id number] 1988 Unknown [id number] 2.16.84 [id number] 1988 Unknown [id number] 2.16.84 [id number] 1988 Unknown [id number] 2.16.84 [id number] 1988 Unknown [id number] 2.16.8 [id number] 1959 Private Health Insurance [id number] 1959 Self-pay 1959 Unknown [id number] Unknown [id number] 2.16.84 [id number] Social History Date Type Detail Facility Start: 04-08-2021 End: 04-30-2021 Tobacco smoking status NHIS Never smoker [employer] Phone: Start: 04-08-2021 End: 04-30-2021 Tobacco use and exposure Never used [employer] Start: 04-08-2021 End: 04-30-2021 Alcohol intake Lifetime non-drinker (finding) [employer] Phone: Start: 04-08-2021 History SDOH Alcohol Frequency 1 [employer] Phone: Start: 01-29-2021 [employer] Work Phone: Start: 1990 Sex Assigned At Not on file [facility] Phone: Exposure to SARS-CoV -2 (event) Not sure [employer] Start: 06-13-2017 Tobacco smoking status Smokes tobacco daily (finding) [facility] Comment on above: 12 ppd Sex Assigned At Female [facility] Functional Status Date Assessment Result Facility 10-19-2022 Functional Status N/A [facility] Discharge instructions 10-19-2022 Note Date & [...] Follow these instructions at home: Medicines Take aoqi-mkf-awtmgpl and prescription medicines only as told by [...] and water are not available, use hand check clerk. Avoid contact with people who have cold [...] 11/10/2005 Document Revised: 08/16/2019 Document Reviewed: 03/23/2017 [employer] Patient Education 2020 [employer]. 10/19/2022 18:40:13 Upper Respiratory Infection, Adult, Drwk-zv-Ybda Upper Respiratory Infection, Adult An upper respiratory [...] and other clear broths. General instructions Take mnjh-lrs-xcmqmia and prescription medicines only as told by [...] not have soap and water, use hand check clerk. Avoid touching your mouth, face, eyes, or [...] get better within 7 10 days. Take iaus-flb-ltjrbme and prescription medicines only as told by your doctor. This information is not intended to replace advice given to you by your health care provider. Make sure you discuss any questions you have with your health care provider. Document Released: 03/21/2009 Document Revised: 10/11/2019 Document Reviewed: 05/26/2018 [employer] Patient Education 2020 [employer]. Follow Up Care 10/19/2022 16:53:44 With:Joaquim Link Address: [address], [address] [facility] [place] [address]- Business (1) When:10/22/2022 18:20:33 Comments:Follow-up with your primary care provider in 3 to 5 days. If symptoms worsen, do not improve, or new symptoms arise please report back to emergency department for further evaluation. [facility] Evaluation + Plan note Note Date & Type Note Facility Evaluation + Plan note No data available for this section [facility] Evaluation note Note Date & Type Note Facility Evaluation note Diagnosis Dental infection- Primary Acute apical periodontitis of pulpal origin [facility] encounter [facility] Phone: Evaluation note Note Date & Type Note Facility Evaluation note Diagnosis Vaginal bleeding in - Primary Unspecified antepartum hemorrhage, unspecified as to episode of care [facility] [employer] Phone: Hospital Discharge instructions Attachments Note Date & Type Note Facility Hospital Discharge instructions The following attachments cannot be sent through Care Everywhere.Tooth: Abscessed (Barbadian)documented in this encounter [facility] [employer] Phone: Hospital Discharge instructions Attachments Note Date & Type Note Facility Hospital Discharge instructions The following attachments cannot be sent through Care Everywhere.: Vaginal Bleeding (Barbadian)documented in this encounter [employer] Phone: Progress note Note Date & Type Note Facility Progress note No data available for this section [facility] Summary Purpose Family History No Family [...] pregn ant, pt of Dr. Jaime in [facility]. Pt started bleeding this afternoon around 4pm. Pt called office and they told her to go to hospital. She came here because she lives in [place]. Pt also c/o abdominal cramping. Ordered Prescriptions [...] CREATED AUTHOR AUTHOR'S ORGANIZ ATION 10/23/2021 [facility] DATE CREATED AUTHOR AUTHOR'S ORGANIZ ATION 08/16/2023 [facility] DATE CREATED AUTHOR AUTHOR'S ORGANIZ ATION 04/19/2025 [facility] Patient Care team informatio n (unrecognized section and content) Personnel Name: Joaquim Osuna DO Address: Address: [address] [place] [address], [facility] [address] [place], [place] [address] FOR RECORDS PERTAINING TO PATIENTS WHO [...] BE BASED ON THE PRIMARY CLINICAL RECORDS. [employer] [facility]. provides no warranty or guarantee of the accuracy or completeness of information in this document.
== END 2025-07-06 08:47 | disposition home or self-care (01) ==
PROVIDERS: Visit Provider Emergency Medicine
DX: O20.0 Threatened abortion (principal)
CPT/HCPCS: 36415; 84702

== ENCOUNTER 2025-07-08 12:55 | Outpatient (OUT) | payer BC, SELFPAY ==
--- OUTSIDE RECORDS SUMMARY | 2025-07-08 13:04 | XMS_ITS | CCD ---
Author Organization [facility] Care Team Providers Care Shirt Sorter Name Role Phone Sarwat Umana Primary [facility] [...] tablet (1 source) Opioid Agonist Start: 06-17-2017 Ayr 325 mg-5 mg oral tablet See Instructions, [...] day(s), # 6 tab(s), Refills(s) 0, Pharmacy: [facility], 170, cm, 10/19/22 16:59:00 EST, Height/Length [...] day(s), # 5 tab(s), Refills(s) 0, Pharmacy: [facility], 170, cm, 10/19/22 16:59:00 EST, Height/Length [...] cough for her. Reports that he tried wqtq-lks-edufklt medications, with no relief of her symptoms. [...] and Complexity of Problems Differential Diagnosis: [] [facility] Data External documents reviewed: [] My EKG interpretation: [] My CT interpretation: [] My X-ray interpretation: Reviewed My Ultrasound interpretation: [] Decision rules/scores evaluated: [] Discussed with: [] Treatment and Disposition ED Course: 32-year-old female reports emergency department chief complaint of cough that is been going since a month ago. Reports that it is not getting better. Reports that she has tried lexc-dil-uvybaxe medications without much relief of her symptoms. Reports that she is still coughing. Denies any recent antibiotic use. Reports that she has tried pomu-jhm-cyrabyb medication without relief. Denies any fevers or [...] antibiotics and medication as prescribed. Continue take ycvq-vfg-qjmkuxs medications. Discussed return precautions. Follow-up with your [...] day(s), # 6 tab(s), Refills(s) 0, Pharmacy: [facility], 295 (more content not included)... Normal [facility] Comment on above: Result Comment: Elec tronically Signed By: Tony Hamlin PA-C\.br\Date and Time Signed: 10/19/22 21:25 EST\.br\Electronically Co-Signed By: Chucho Kwon DO\.br\Date and Time Co-Signed: 10/26/22 07:09 EST Coding Summary.on 10-22-2022 Coding Summary. CD:[id number] Gh0bWw+PGhlYWQ+PE1FV AHiP74rbHPtgD5SU6qPE W1DIIYAQCGBZB4HFH8nw FW6CSriF8VnkjOk BfwloLAqJY30XCy1JGZ4 qYbfPDyqkK3qhHYxM2f8 CwKjEM78mP80BWqqOXSe WiF7EaUzazawoUXd A9brFwMokZNdKuq+PHRh YmxlIHdpZHRoPScxMDAl RsJuzTxiFT1dFj7aEDVd LWNvbGxhcHNlOiBj n1wjTIYiCBxoYT3gzCkt A1OwkCV3QJWqz2i9Ar41 dHI+JZXyWHN2wGljMUgz b458FfRvd1heNVL2 hSCeBQkfHSH9J98eb1C9 LOMsSHEhBNM6xNP0hA3i rWgqgnokI8GbyQAzToM7 IBI6oQZxiK7leKxb rdudqL4oRxg+A78TFJ5H RVLTMZ8GEbh1U0UoNnza dHI+HY58HCAkMS10tICx fCMig9wftPz9EzVl JCPeKNM7xFrbJArcb4Dt PSIrD12myGZlz1K0QRAq dMevnDHdRzXyjGQ8jF2c VNpptnjzw8bffukb Bweng7olul75fU82P16y XEpuZGAkCJY3DQJaUIBr bHblqr4arV9sDe0+IDxj e9hqh2xtjFk7OnCs ZEYgqlBdtKcjPGB0e3St Iv36A0CcxJmxf7JiQuk2 ce27zGIan6J5oAA0VPxj XALmsR3qZVovLpF2 OCIaHoTgeK91cPYoMBqc Ia3xjRqjzNlzMW1zOVAk tgphRMPusC2lIEImjADp xFcgNE3ySBLnnsmt g716DmDzFCJ1IFLnoBJn G5SlvU4tByPnTYTxCTGy A2TxtCKwRMtfH434WGex InS9JYAjhsOhD0Qc BFRqrSuqYpU6j8P8Dr6S m6ZzxeitQBL2EWmcGXBb GhU7XrRwLbI2T5YdKil9 DNFgtJidNK5tJ1Ox ZYQndbfxpmgsmAK9TDNf SLTykI04aGSjXZbcNk1k x0H4j153CBZgPWTmjX09 Iw3meRvjHHPelUUC mE2hxluji0llldshNyXl GEOsZLd6FEp6KXQwwZml QbQeOQN7EaH6NCT8cJBw oM7euUugtppktS4y Oyc+V04kpG1vBXL4XVO3 wemuZLEyzaXeIM86XV23 X3BxHkjgfOZiiSQ+PGRp tsUclPhiJZ4wPbKh w7iqu0OoGZdhM0HcFCEm VYiiVkl5SQFlKZK2mCU9 lS7cHUTzRYcbd7A5iVV9 I3ZrpnBxgc6br3wl OHCgNRhdB18zdJTmh7Y6 IQClyRC8TEIqlEfjEzUv tB88Nom+GLEqdAanz4Gs Gyxbu5fno1ellRt7 IjMwJSIgdmFsaWduPSJ0 s4QxEo75Z54xHMnqGOWn OGKdSKDdOOPdrNbzgn8h oL1yVs1+PGNvbCB3 sGP8lA6cWFWqLyM5YZno Y783BmLihHFtDdskt4mw f9eqkSm7IjHxPZTyupUr oGqiVDE6q7AjUq75 E70yALkyKJGkKLYeIJCr LHEibWbmto5piF5eMu7+ AA7ic9isub69bP86lXK+ CBEwZWV1pTfuUCgn VDWjhK8oHLuyIpS2HFOg GhAgqU07pMYiNTrwUx3r yVnvhTlsXG5xQOEsaufd r944JtUrd9kqOVYy aQRhQUzwWCH5M79ab7O9 XHMdRWVqQLG7tDC5jD5g bGlnbjogbGVmdDsgdmVy iCaxMBklENghV633 IHRvcDsnPlBhdGllbnQg PtLhCQp8M4EvKjj8UQMb aXtcGV2uvMSzUQnqVq0c hCebqEorWG4pFINv ptpww604FiNiw2brGADe hXWmNJxqHHJ2F99rt6M7 QZTrDBQcKJU4nZB5sU8w bGlnbjogbGVmdDsg cjXbfLpaEFtyFDcbL530 IHRvcDsnPkJpcnRoIERh rAW1HE80TV61bUBaw8X5 eGU5E5RqGSIarnce zagypWJ9KWPjVZBbrN53 Pp1isLlsTc3oTGVzCGE6 IDGlpRQaW4RenY1dXmKk MFHaVYDzK7CjoFBc YOsyV959MNpjEmX3EOMq oxSxR2XpMKFcpQvjVkA8 s1H3Rl3CO8A7NY73BC94 aWXpq3B9vTT0O4Ge NNQojwbpuhjtsTH6TUDq BFQhkN65Xj0omJtrNz6d GOSyUBO3LQMhlUVeN1Av mV0nHiLoUXQkNWBf V7IazRCqJYayN474LVbh DgA3NHFrkjBtT4AvHAUd eInzImS3c0W3Xz8CSUj3 BD65WX17zAKvf6F3 rVH4U7RyQEZeopdksmjh oZS0KQQgDGVjfV03Rq5x cXniOu4qLFWgGYE5UFMt uCDvP9ZvxT4fKvCz EYPcTSPjP4PrvYFvMXdg I094TMywSsD9LHJtegRb L4CmZRMybZngZhQ1b1Y8 De2TCEHaQI24AWT5 eYX3UX63MS86V7QqDfbz dGFibGU+PHRhYmxlIHdp ZHRoPScxMDAlJyBzdHls EM3qEd3qKKVlBJWs kLwksKFpLaCtz2isHRSn FZniFY0wjUavN0GbvKN8 QCBuj9r7Jf34C29gJ0Fn dXA+MYSbmQU5rRI7 iY4pItUuCfE9LDpeV500 AmOamMSeSxrha2kuh3wh cJn1UbO5TLKwrcNmsQgg UST5h9WzBy53T19u IHdpZHRoPSIxNSUiIHZh kJqgjq2evW2rJm8+PGNv wHA1cFU4xK7cMeDpFtQ6 AOyiF723YiMfvRTf Cbjlu8ukg0pnqXu6RnNy OZTgamColDmdAKP2r2Vr Pi12V4MjxRzuk4GxAtf6 kf16fLXhu1A2rIQ2 S8NgQMPqwdekiJTalIxb TC1lRHJrxandJEYlpT8v JLMcY6r0IbUeMtB7BFrj S5DxazD4FETozHUa JIikAQO6U62xc5F6CCEh EHTpICM2pMM0dZ0nmKzz bjogbGVmdDsgdmVydGlj TOjkKBllX192HKZo yJufWGRczU7yLHQkqSKi aLpiCY6jNNRhyrivRwzX UkQsIFNBTUFOVEhBIFI8 S6LcHwi0DOBkuZcu CF2lwBGhYNwyBv0ryZyt pXlvYL7mKPMwppvcMOFi fU5jLAKceZPdpJveAP8l CMCgvdptu108TuHe JQR7PIJtsVRrU2EwzJ4p HqZlBJPwNCRiE1GjaSVf PSigU332JHhaEyT0ORQh nsKiT9LkTUCssIqh LcK7t1H6Uf1oMJ9tRQ9r AXf3UL30SA56lWUot6S0 cCC5D0HfGDDroruxmieg nBF7QRQtSIYolY14 sUYpCRndDl1kx5V8o853 YKEoRWKhkH05Vd1doAjq WLLilYEBvP7bzhfsc4kk cjogIzAwMDAwMDt0 MOg0OOVaxExzLrBmFVQ9 YjB8EQE0bZSaxD0kvPjp jmkngS2lCmn+MzQgWWVh ioA9L0DaHzg5GXMm tFtaWC6odOYuXTqkMf1e wTjklUjsHY1rSTSqxtkb DMEzhG0tSBByuSNdsTjg EO3lDJAshghiy371 BuDeTXS0WWHvjCRpE6Cz aA0rIvXrNXLxPYMfI6Me rEBnUKiuD822NZxxJrB3 ULXqzcFlC6RrCUOe pSgiYfT2m7T0Wf8VRZ6b zEQ0N6ToQxy0HPDlsQcs ZT2dnMIjBWvoHf6rfFyl xGxgDD4sDBDscbhd HHDvyW2zMXVcsNVvzRge UT6vNIYlzexjo828QgKk AAC1DXYrqCFoC1TukX2x OxTuTWVlIADaW2Kn pWSaPAbbR129XAmxMsQ7 LPCxgzIvG9BeMSTzkSgh BkK3r4Z1Gk1NjSLkG1Ec N5q3N7YzIdmqzWF+ WU21YBYaQC16gBXljLNy r2bsfQn0MkCtWNVtSFU9 mVoeIQbey1FqVUZgL49t fRBpx4H5THTizOak kKBqKeVelVK4jB5gCLcl qrbop7ayvrnfOmldk0kq xe58vN32V62cSMwvGYBm PSIzMCUiIHZhbGln ep6pmZ3vWx5+PGNvbCB3 bCX4uD4fYrGyMaG3OAsa V192NiYcaBEvMvhll8sf l4ksjBh1TmLqGQDn frZnbRwnFTF1q5LtGw09 B34sUYvtBJPnBOZbGWMq NMIzhOvmen6cwT4jWf2+ ZJ8gx8iaql10zA61 dHI+CJMxHNY9uAecRXoo LKNtjS2pXYtxPgH0VHOt EoXbdD22aEChLNxiQw9m tXxdmRekWB8vSUCa iktfr733QhHas0agNXIk zNOnGYwfZDW0K75vw4H3 GGFoOMSlIZZ9rRQ6wK7y bGlnbjogbGVmdDsg udMdlMuuNWigAQtgA475 ZRQbuKbbXyNkdXKgC7px oxORNS0pRimyhON+PHRk OVY8vDhfEObmPPMq gD6pZDAhD8o0WdPzVhH5 VUkxE6WxixI7OXPktSUb ZWXloYKWaL3paqdid7ev cjogIzAwMDAwMDt0 LVg8NFOzeEnoKcDjZSQ7 UnK4URW9eUTkrR8wcMku fzdsnR8lCvu+RklOOjwv dGQ+XXWuTHX5zRcy ISimETJyyO6zFJLoF6h7 NrZlMdV4BFkxL7XzwwG5 OOYlbBQwVREtxHLVqX3g skkjp2erjbroMkZu PEGhMVr6ODm2SGKcqAud LmSpSEP8QaY0IQK2pAIp xU8ciYqpmjgycR5hFcx+ TVJOOjwvdGQ+PHRk FDG9lNovLRcnKMWfaL6z SUYqA2g0VjHdFyI0KEuz J7FcnrF9TYUfrWJlXQSf dADSlM2dwhesr0zs cobvUaMjHNNfAZq1JYx5 HKPmxDycQjZnFWZ7KhD3 GOL0sVQlxQ0zrWiztljw lG4mDuu+TCC7FVY7 GT10OO46Q2FdYhhtyLAb bGU+PHRhYmxlIHdpZHRo ISxsKMByHzWoyEmaAP1c Ru0zYZVcPRMylYye cHNl (more content not included)... Normal [facility] XR Chest 2 Viewson XR Chest [...] M.D. Transcribed by: LACY Technologist: AO Normal [facility] Consent for Treatmenton Consent for Treatment [id number] #[id number] Normal [facility] Discharge Instructionson Discharge Instructions [id number] Normal [facility] ED Clinical Summaryon 2022 ED Clinical Summary [place] [id number] ED Clinical Summary Person Information Name: HARSH ARANGO Joanne/[facility] Age: 32 Years : 1990 Sex: Female Language: [place] Lucian PCP: Joaquim Osuna DO Marital Status: Single Phone: [phone] Visit Id: Visit Reason: Sinus Pain/Congestion; Cough; [...] 10/19/2022 18:40:12 10/19/2022 18:40:12 10/19/2022 18:40:12 ADDRESS: [facility] [place] [id number] PHYS DOC NOTES: MEDICAL INFORMATION: Prescriptions Given: New Medications [facility], [address], [place] [id number], [phone] azithromycin (azithromycin 250 mg Tab 5-day Dose Pack (Z-Abe)) 1 Packets By Mouth As Directed for 5 Days. as directed on package labeling. Refills: 0. predniSONE (predniSONE 50 mg Tab) 1 Tablets By Mouth every day for 5 Days. Refills: 0. Medications to Continue with No Changes Other Medications acetaminophen-hydroc odone (Ayr 325 mg-5 mg oral tablet) 1-2 tab(s) [...] Acute Bronchitis, Adult; Upper Respiratory Infection, Adult, Kcnk-vi-Weyl Follow up: With: Address: When: Joaquim Osuna [address] [place], [place] [address]lorie Painter, [facility] [address] [place] [address] [facility] (KROGNI In 3 days 10/22/2022 Comments: Follow-up with your primary care provider in 3 to 5 days. If symptoms worsen, do not improve, or new symptoms arise please report back to emergency department for further evaluation. DIAGNOSIS: Bronchitis Normal [facility] ED Patient Education Noteon 10-19-2022 ED [...] other clear broths. General instructions ? Take bcjp-oqf-wkbhmoo and prescription medicines only as told by [...] not have soap and water, use hand operating room manager. ? Avoid touching your mouth, face, eyes, [...] get better within 7?10 days. ? Take vzzl-vhf-vzujeni and prescription medicines only as told by your doctor. This information is not intended to replace advice given to you by your health care provider. Make sure you discuss any questions you have with your health care provider. Document Released: 03/21/2009 Document Revised: 10/11/2019 Document Reviewed: 05/26/2018 [employer] Patient Education ? 2019 [employer]. Pulmonary Medicine Acute Bronchitis, Adult Acute bronchitis [...] A fe (more content not included)... Normal [facility] ED Patient Summaryon 023 ED Patient Summary [address] [address] Patient Discharge Instructions Person Information Name: HARSH ARANGO Age: 32 Years Arrival Date: 10/19/2022 16:52:07 Discharge Diagnosis: Bronchitis Primary Care Physician: Joaquim Osuna DO Provider Information Primary Provider: Chucho Kwon DO Advanced Auction Block Clerk:None The exam and treatment you received in the Emergency Department were for an urgent problem and are not intended as complete care. It is important that you follow up with a doctor, nurse practitioner, or physician?s itinerant teacher assistant for ongoing care. If your symptoms [...] With: Address: Edmundo: Joaquim Painter, [address] [facility] [place] [address] [employer] (1) In 3 days 10/22/2022 Comments: Follow-up [...] Acute Bronchitis, Adult; Upper Respiratory Infection, Adult, Asud-ll-Yjvp A MESSAGE TO ALL PATIENTS REGARDING OPIOIDS PRESCRIPTION OPIOIDS: WHAT YOU NEED TO KNOW Prescription opioids can be used to help relieve yfjkqpda-jc-rzkjhi pain and are often prescribed following a [...] the risk (more content not included)... Normal [facility] MICRO OTHER TESTSOrdered By: Tamar Banks on 10-19-2022 Rapid COV Int NEG Ctl Pass (10/19/22 5:12 PM) Normal [facility] Rapid COV Int POS Ctl Pass (10/19/22 5:12 PM) Normal [facility] SARS-CoV+SARS-CoV-2 (COVID-19) Ag IA.rapid Ql (Resp) Not Detected (10/19/22 5:12 PM) Normal Not Detected [facility] Rapid COVID Antigen ([facility]on 10-19-2022 Rapid COV Int NEG Ctl Pass Normal [facility] Comment on above: Performed By: #### 2 [id number] #### [facility] [address] [place] [address] Rapid COV Int POS Ctl Pass Normal [facility] Comment on above: Performed By: #### 2 [id number] #### [facility] [address] [place] [address] SARS-CoV+SARS-CoV-2 (COVID-19) Ag IA.rapid Ql (Resp) Not detected Normal Not Detected [facility] Comment on above: Result Comment: The PPTV? System for Rapid Detection of SARS-CoV-2 is [...] or revoked sooner. Performed By: #### 2 [id number] #### [facility] [address] [place] [address] ADMITTED TO INTENSIVE CARE UNIT FOR CONDITION OF INTEREST:FIND:PT: NO Normal [facility] Comment on above: Performed By: #### 2 [id number] #### [facility] [address] [place] [address] EMPLOYED IN A HEALTHCARE SETTING:FIND:PT: NO Normal [facility] Comment on above: Performed By: #### 2 [id number] #### [facility] [address] [place] [address] FIRST TEST FOR CONDITION OF INTEREST:FIND:PT: NO Normal [facility] Comment on above: Performed By: #### 2 [id number] #### [facility] [address] [place] [address] HAS SYMPTOMS RELATED TO CONDITION OF INTEREST:FIND:PT: YES Normal [facility] Comment on above: Performed By: #### 2 [id number] #### [facility] [address] [place] [address] HOSPITALIZED FOR CONDITION OF INTEREST:FIND:PT: NO Normal [facility] Comment on above: Performed By: #### 2 [id number] #### [facility] [address] [place] [address] STATUS:FIND:PT: NO Normal [facility] Comment on above: Performed By: #### 2 [id number] #### [facility] [address] [place] [address] RESIDES IN A CONGREGATE CARE SETTING:FIND:PT: NO Normal [facility] Comment on above: Performed By: #### 2 [id number] #### [facility] [address] [place] [address] CBC AUTO DIFFon 10-17-2021 BASO # 0.0 103/ul Normal 0.0-0.1 [facility] Comment on above: Performed By: #### C BC #### [facility] [address] [place] [address] Dr. Marianne Mojica Basophils/100 WBC (Bld) 0.4 % Normal 0.2-2.0 [facility] Comment on above: Performed By: #### C BC #### [facility] [address] [place] [address] Dr. Marianne Mojica EO # 0.1 103/ul Normal 0.0-0.7 [facility] Comment on above: Performed By: #### C BC #### [facility] [address] [place] [address] Dr. Marianne Mojica Eosinophils/100 WBC (Bld) 1.1 % Normal 0.9-7.0 [facility] Comment on above: Performed By: #### C BC #### [facility] [address] [place] [address] Dr. Marianne Mojica Erythrocyte distribution width (RBC) [Ratio] 13.2 % Normal 11.0-15.0 [facility] Comment on above: Performed By: #### C BC #### [facility] [address] [place] [address] Dr. Marianne Mojica Hematocrit (Bld) [Volume fraction] 33.5 % Critically low 36.0-48.0 [facility] Comment on above: Performed By: #### C BC #### [facility] [address] [place] [address] Dr. Marianne Mojica Hemoglobin (Bld) [Mass/Vol] 11.1 g/dL Critically low 12.0-16.0 [facility] Comment on above: Performed By: #### C BC #### [facility] [address] [place] [address] Dr. Marianne Mojica IG # 0.05 10e3/ul Critically high 0.00-0.03 [facility] Comment on above: Performed By: #### C BC #### [facility] [address] [place] [address] Dr. Marianne Mojica IG % 0.5 % Normal 0.0-0.5 [facility] Comment on above: Performed By: #### C BC #### [facility] [address] [place] [address] Dr. Marianne Mojica LYMPH # 2.8 103/ul Normal 1.2-3.8 [facility] Comment on above: Performed By: #### C BC #### [facility] [address] [place] [address] Dr. Marianne Mojica Lymphocytes/100 WBC (Bld) 29.9 % Normal 20.5-60.0 [facility] Comment on above: Performed By: #### C BC #### [facility] [address] [place] [address] Dr. Marianne Mojica MANUAL DIFF REQ NO Normal [facility] Comment on above: Performed By: #### C BC #### [facility] [address] [place] [address] Dr. Marianne Mojica MCH (RBC) [Entitic mass] 31.6 pg Normal 26.7-34.0 [facility] Comment on above: Performed By: #### C BC #### [facility] [address] [place] [address] Dr. Marianne Mojica MCHC (RBC) [Mass/Vol] 33.1 g/dL Normal 29.9-35.2 [facility] Comment on above: Performed By: #### C BC #### [facility] [address] [place] [address] Dr. Marianne Mojica MCV (RBC) [Entitic vol] 95.4 fL Normal 81.0-99.0 [facility] Comment on above: Performed By: #### C BC #### [facility] [address] [place] [address] Dr. Marianne Mojica MONO # 0.7 103/ul Normal 0.3-0.8 [facility] Comment on above: Performed By: #### C BC #### [facility] [address] [address] [address] Marianne Mojica Monocytes/100 WBC (Bld) 7.3 % Normal 1.7-12.0 [facility] Comment on above: Performed By: #### C BC #### [facility] [address] [address] [address] Marianne Mojica NEUT # 5.6 103/ul Normal 1.4-6.5 [facility] Comment on above: Performed By: #### C BC #### [facility] [address] [place] [address] Dr. Marianne Mojica Neutrophils/100 WBC (Bld) 60.8 % Normal 43.0-75.0 [facility] Comment on above: Performed By: #### C BC #### [facility] [address] [place] [address] Dr. Marianne Mojica Platelet mean volume (Bld) [Entitic vol] 9.8 fL Normal 9.5-13.5 [facility] Comment on above: Performed By: #### C BC #### [facility] [address] [place] [address] Dr. Marianne Mojica PLT 188 103/ul Normal 150-450 [facility] Comment on above: Performed By: #### C BC #### [facility] [address] [place] [address] Dr. Marianne Mojica RBC 3.51 106/ul Critically low 4.20-5.40 [facility] Comment on above: Performed By: #### C BC #### [facility] [address] [place] [address] Dr. Marianne Mojica WBC 9.2 103/ul Normal 4.0-11.0 [facility] Comment on above: Performed By: #### C BC #### [facility] [address] [place] [address] Dr. Marianne Mojica CBC AUTO DIFFon 10-15-2021 BASO # 0.0 103/ul Normal 0.0-0.1 [facility] Comment on above: Performed By: #### C BC #### [facility] [address] [place] [address] [address] Marianne Mojica Basophils/100 WBC (Bld) 0.2 % Normal 0.2-2.0 [facility] Comment on above: Performed By: #### C BC #### [facility] [address] [place] [address] [address] Marianne Mojica EO # 0.1 103/ul Normal 0.0-0.7 [facility] Comment on above: Performed By: #### C BC #### [facility] [address] [place] [address] [address] Marianne Mojica Eosinophils/100 WBC (Bld) 0.6 % Critically low 0.9-7.0 [facility] Comment on above: Performed By: #### C BC #### [facility] [address] [place] [address] Dr. Marianne Mojica Erythrocyte distribution width (RBC) [Ratio] 13.2 % Normal 11.0-15.0 [facility] Comment on above: Performed By: #### C BC #### [facility] [address] [place] [address] Dr. Marianne Mojica Hematocrit (Bld) [Volume fraction] 37.2 % Normal 36.0-48.0 [facility] Comment on above: Performed By: #### C BC #### [facility] [address] [place] [address] Dr. Marianne Mojica Hemoglobin (Bld) [Mass/Vol] 12.2 g/dL Normal 12.0-16.0 [facility] Comment on above: Performed By: #### C BC #### [facility] [address] [place] [address] Dr. Marianne Mojica IG # 0.04 10e3/ul Critically high 0.00-0.03 [facility] Comment on above: Performed By: #### C BC #### [facility] [address] [place] [address] Dr. Marianne Mojica IG % 0.4 % Normal 0.0-0.5 [facility] Comment on above: Performed By: #### C BC #### [facility] [address] [place] [address] Dr. Marianne Mojica LYMPH # 2.6 103/ul Normal 1.2-3.8 [facility] Comment on above: Performed By: #### C BC #### [facility] [address] [place] [address] Dr. Marianne Mojica Lymphocytes/100 WBC (Bld) 27.0 % Normal 20.5-60.0 [facility] Comment on above: Performed By: #### C BC #### [facility] [address] [place] [address] Dr. Marianne Mojica MANUAL DIFF REQ NO Normal [facility] Comment on above: Performed By: #### C BC #### [facility] [address] [place] [address] Dr. Marianne Mojica MCH (RBC) [Entitic mass] 31.1 pg Normal 26.7-34.0 [facility] Comment on above: Performed By: #### C BC #### [facility] [address] [place] [address] Dr. Marianne Mojica MCHC (RBC) [Mass/Vol] 32.8 g/dL Normal 29.9-35.2 [facility] Comment on above: Performed By: #### C BC #### [facility] [address] [place] [address] Dr. Marianne Mojica MCV (RBC) [Entitic vol] 94.9 fL Normal 81.0-99.0 [facility] Comment on above: Performed By: #### C BC #### [facility] [address] [place] [address] Dr. Marianne Mojica MONO # 0.8 103/ul Normal 0.3-0.8 [facility] Comment on above: Performed By: #### C BC #### [facility] [address] [place] [address] Dr. Marianne Mojica Monocytes/100 WBC (Bld) 7.8 % Normal 1.7-12.0 [facility] Comment on above: Performed By: #### C BC #### [facility] [address] [place] [address] Dr. Marianne Mojica NEUT # 6.2 103/ul Normal 1.4-6.5 [facility] Comment on above: Performed By: #### C BC #### [facility] [address] [place] [address] Dr. Marianne Mojica Neutrophils/100 WBC (Bld) 64.0 % Normal 43.0-75.0 [facility] Comment on above: Performed By: #### C BC #### [facility] [address] [place] [address] Dr. Marianne Mojica Platelet mean volume (Bld) [Entitic vol] 10.5 fL Normal 9.5-13.5 [facility] Comment on above: Performed By: #### C BC #### [facility] [address] [place] [address] Dr. Marianne Mojica PLT 210 103/ul Normal 150-450 [facility] Comment on above: Performed By: #### C BC #### [facility] [address] [place] [address] Dr. Marianne Mojica RBC 3.92 106/ul Critically low 4.20-5.40 [facility] Comment on above: Performed By: #### C BC #### [facility] [address] [place] [address] Dr. Marianne Mojica WBC 9.7 103/ul Normal 4.0-11.0 [facility] Comment on above: Performed By: #### C BC #### [facility] [address] [place] [address] Dr. Marianne Mojica Covid-19 PCR ([facility]on 09-18 SARS-CoV-2 (COVID-19) RNA VIRA+probe Ql (Unsp [...] for this test is supported by the Health Consultant of Health and Human Service's declaration that [...] R PRQ #### [facility] [address] [place] [address] DRUG SCREEN RAPID (URINE)on 10-15-2021 AMP Negative Normal NEGATIVE [facility] Comment on above: Performed By: #### R PRQ #### [facility] [address] [place] [address] Carlos Della BAR Negative Normal NEGATIVE [facility] Comment on above: Performed By: #### R PRQ #### [facility] [address] [place] [address] Della BUP Negative Normal NEGATIVE [facility] Comment on above: Performed By: #### R PRQ #### [facility] [address] [place], [place] [address]en BZO Negative Normal NEGATIVE [facility] Comment on above: Performed By: #### R PRQ #### [facility] [address] [place], [place] [address]en BREE Negative Normal NEGATIVE [facility] Comment on above: Performed By: #### R PRQ #### [facility] [address] [place] [address] CUT-OFFS SEE BELOW Normal [facility] [...] R PRQ #### [facility] [address] [place] [address] DRUG CUT HEADER DRUG CLASS TEST SYSTEM CUT-OFF CONCENTRATIONS ARE FOLLOWS: Normal [facility] Comment on above: Performed By: #### R PRQ #### [facility] [address] [place] [address] Carlos Della mAMP Negative Normal NEGATIVE [facility] Comment on above: Performed By: #### R PRQ #### [facility] [address] [place] [address] Carlos Della MTD Negative Normal NEGATIVE [facility] Comment on above: Performed By: #### R PRQ #### [facility] [address] [place] [address] Carlos Della OPI Negative Normal NEGATIVE [facility] Comment on above: Performed By: #### R PRQ #### [facility] [address] [place] [address] Carlos Della OXY Negative Normal NEGATIVE [facility] Comment on above: Performed By: #### R PRQ #### [facility] [address] [place] [address] Carlos Della PCP Negative Normal NEGATIVE [facility] Comment on above: Performed By: #### R PRQ #### [facility] [address] [place], [place] [address] PPX Negative Normal NEGATIVE [facility] Comment on above: Performed By: #### R PRQ #### [facility] [address] [place] [address] Carlos Della TCA Negative Normal NEGATIVE [facility] Comment on above: Performed By: #### R PRQ #### [facility] [address] [place] [address] Carlos Hull THC Negative Normal NEGATIVE [facility] Comment on above: Performed By: #### R PRQ #### [facility] [address] [place] [address] Carlos Hull TYPE AND SCREENon 10-15-2021 TYPE AND SCREEN Negative Normal [facility] Comment on above: Performed By: #### R PRQ #### [facility] [address] [place] [address] Carlos Hull US PREG BIOPHY W NON [...] C T/NGNA #### [facility] [address] [place] [address] Dr. Marianne Mojica Neisseria gonorrhoeae, VIRA Negative Normal Negative [facility] Comment on above: Performed By: #### C T/NGNA #### [facility] [address] [place] [address] Dr. Marianne Mojica VAGINITIS/VAGINOSIS DNA PROB Travon 10-04-2021 Tory species Negative Normal Negative [facility] Comment on above: Performed By: #### R UBIGG #### [facility] [address] [place] [address] Carlosgaurang Hull Gardnerella vaginalis Negative Normal Negative [facility] Comment on above: Performed By: #### R UBIGG #### [facility] [address] [place] [address] Carlos Hull Trichomonas vaginalis Negative Normal Negative [facility] Comment on above: Performed By: #### R UBIGG #### [facility] [address] [place] [address] Carlos Hull GROUP B STREP CULTUREon 09-16 S. agalactiae Ag Ql (Unsp spec) Culture Observations: NEGATIVE FOR GROUP B STREPTOCOCCUS. Normal [facility] Comment on above: Performed By: #### G BSCX #### [facility] [address] [place] [address] Dr. Marianne Mojica US PREG PLACENTAon US [...] R UBIGG #### [facility] [address] [place] [address] Carlos Hull HEMOGRAM AND PLATELon 2020 Hematocrit (Bld) [Volume fraction] 36.2 % Normal 36.0-48.0 [facility] Comment on above: Performed By: #### R UBIGG #### [facility] [address] [place] [address] Carlos Della Hemoglobin (Bld) [Mass/Vol] 11.8 g/dL Critically low 12.0-16.0 [facility] Comment on above: Performed By: #### R UBIGG #### [facility] [address] [place] [address] Carlos Hull MCH (RBC) [Entitic mass] 31.4 pg Normal 26.7-34.0 [facility] Comment on above: Performed By: #### R UBIGG #### [facility] [address] [id number] Carlos Hull MCHC (RBC) [Mass/Vol] 32.6 g/dL Normal 29.9-35.2 [facility] Comment on above: Performed By: #### R UBIGG #### [facility] [address] [id number] Carlos Hull MCV (RBC) [Entitic vol] 96.3 fL Normal 81.0-99.0 [facility] Comment on above: Performed By: #### R UBIGG #### [facility] [address] [id number] Carlos Hull PLT 234 103/ul Normal 150-450 [facility] Comment on above: Performed By: #### R UBIGG #### [facility] [address] [address] Carlos Hull RBC 3.76 106/ul Critically low 4.20-5.40 [facility] Comment on above: Performed By: #### R UBIGG #### [facility] [address] [id number] Carlos Hull WBC 9.1 103/ul Normal 4.0-11.0 [facility] Comment on above: Performed By: #### R UBIGG #### [facility] [address] [place], [place] [address] Carlos Hull US PREG ANATOMY SINGLEon US [...] 59th percentile by ultrasound and expected FL/AC: 0.861213 FL/BPD: 0.986800 HC/AC: 1.961728 GESTATIONAL AGE: Age by EDC: 20 weeks, [...] FPMAT #### [facility] [address] [address] Carlos Hull AFP Value 37.7 ng/mL Normal [facility] Comment on above: Performed By: #### A FPMAT #### [facility] [address] [address] Carlosgaurang Hull AFP, Serum for Spina Bifida Report Normal [facility] Comment on above: Performed By: #### A FPMAT #### [facility] [address] [id number] Carlos Della Comment Comment Normal [facility] Comment on above: Result Comment: Shekhar Lincoln, Ph.D., [facility] Director . References: Available Upon Request. . Multiples Of Median Cutoffs For AFP Elevations Sommer 2.5 Black 2.8 IDD 2.0 Twins 4.5 Abbreviation Definitions IDD - Insulin Dep Diabetes OSBR - Open Spina Bifida Risk . For further inquiries contact [facility] at [phone]. Performed By: #### A FPMAT #### [facility] [address] [address] Carlos Hull Gest Age Collection Date 17.6 weeks Normal [facility] Comment on above: Performed By: #### A FPMAT #### [facility] [address] [place] [address] Carlos Hull Gestat, Age Based on Ultrasound Normal [facility] Comment on above: Result Comment: 11:0 on 04/02/2021 Recalculations are not recommended when gestational dating by LMP and ultrasound are within 10 days. Performed By: #### A FPMAT #### [facility] [address] [place] [address] Carlos Della Insulin Dep Diabetes No Normal [facility] Comment on above: Performed By: #### A FPMAT #### [facility] [address] [place] [address] Carlos Hull Interpretation Comment Normal [facility] Comment on above: Result Comment: Inte [...] Customer Services to discuss available options. The [employer] recommends amniocentesis be offered to women age 35 and older. Performed By: #### A FPMAT #### [facility] [address] [place] [address] Carlos Hull [age] Normal [facility] Comment on above: Performed By: #### A FPMAT #### [facility] [address] [place] [address] Carlos Hull Multiple Gestation No Normal [facility] Comment on above: Performed By: #### A FPMAT #### [facility] [address] [place] [address] Carlos Hull OSBR [place] 1 [place] [id number] Normal [facility] Comment on above: Performed By: #### A FPMAT #### [facility] [address] [place], [place] [address] Carlos Hull PDF . Normal [facility] Comment on above: Performed By: #### A FPMAT #### [facility] [address] [place], [place] [address] Carlos Hull Race Normal [facility] Comment on above: Performed By: #### A FPMAT #### [facility] [address] [place], [place] [address] Carlos Hull Test Results: Negative Normal [facility] Comment on above: Performed By: #### A FPMAT #### [facility] [address] [address] Carlos Hull Cult,Urineon 05-01-2021 Cult,Urine Specimen Description .Random Urine Special Requests NOT REPORTED Culture NO GROWTH Report Status FINAL 05/01/2021 Normal [facility] Comment on above: Performed By: #### U RC #### [facility] [address] [place] [address] Rn Telephone Triage: Sekou Fraser MD [facility] [address] [place] [address] Rn Telephone Triage: Campos Chandra MD US PREG PLACENTAon US [...] by: YURIY WISE Date: 2021-04-30 23:35 Normal [facility] ABO/RHOrdered By: Nathaly Berry s on 04-30-2021 ABO/Rh Positive [facility] Work Phone: [facility] Work Phone: ABO/Rh(D)on 04-30-2021 ABO/Rh(D) Positive Normal [facility] Comment on above: Performed By: #### A [facility] #### [facility] [address] [place] [address] Rn Telephone Triage: Campos Chandra MD CBC Auto DifferentialOrdered By: Nathaly Jurado on 04-30-2021 Absolute Eos # 0.00 [facility] Work Phone: Absolute Immature Granulocyte NOT REPORTED [facility] [employer] Work Phone: Absolute Lymph # 2.70 [facility] Work Phone: Absolute Sarpy # 0.50 [facility] Work Phone: Basophils (Bld) [#/Vol] 0.00 10*3/uL [employer] Work Phone: Basophils/100 WBC (Bld) 0 % 0 - 2 % [facility] [employer] Work Phone: Differential Type YES [facility] Work Phone: Eosinophils/100 WBC (Bld) 0 % 0 - 5 % [facility] Work Phone: Hematocrit (Bld) [Volume fraction] 36.7 % 36 - 46 % [employer] Work Phone: Hemoglobin.gastrointesti nal spec 1 Ql (Stl) 12.5 g/dL 12.0 - 16.0 g/dL [facility] Work Phone: Immature Granulocytes NOT REPORTED 0 % M [employer] Work Phone: Lymphocytes/100 WBC (Bld) 30 % 15 - 40 % [employer] Work Phone: MCH (RBC) [Entitic mass] 30.6 pg 26 - 34 pg [employer] Phone: MCHC (RBC) [Mass/Vol] 34.2 g/dL 31 - 37 g/dL [facility] [employer] Phone: MCV (RBC) [Entitic vol] 89.7 fL 80 - 100 fL [employer] Phone: Monocytes/100 WBC (Bld) 5 % 4 - 8 % [employer] Work Phone: NRBC Automated NOT REPORTED per 100 WBC [facility] [facility] Work Phone: Platelet distribution width (Bld) [Ratio] 12.8 % 12.1 - 15.2 % [employer] Phone: Platelet Estimate NOT REPORTED [employer] Phone: Platelet mean volume (Bld) [Entitic vol] NOT REPORTED 6.0 - 12.0 fL [employer] Phone: Platelets (Bld) [#/Vol] 271 10*3/uL [employer] Phone: RBC (Bld) [#/Vol] 4.09 10*6/uL 4.0 - 5.2 m/uL [employer] Phone: RBC (Bld) [#/Vol] NOT REPORTED [employer] Phone: Segmented neutrophils/100 WBC (Bld) 65 % 47 - 75 % [employer] Phone: Segs Absolute 5[facility]70 [facility] Work Phone: WBC (Bld) [#/Vol] 8.9 10*3/uL [employer] Phone: WBC (Bld) [#/Vol] NOT REPORTED [employer] Phone: [employer] Phone: CBC with Diffon 04-30-2021 Abs. Basophil 0.00 k/uL Normal 0.0-0.2 [facility] Comment on above: Performed By: #### Jaime Faria CMPX, CDP #### [facility] [address], [place] [id number] Rn Telephone Triage: Campos Chandra MD Abs.Neutrophil (Seg) 5.70 k/uL Normal 2.5-7.0 [facility] Comment on above: Performed By: #### Jaime Faria CMPX, CDP #### [facility] [address], [place] [phone] Rn Telephone Triage: Campos Chandra MD Auto Diff Performed YES Normal [facility] Comment on above: Performed By: #### Jaime Faria CMPX, CDP #### [facility] [address] [phone] Rn Telephone Triage: Campos Chandra MD Basophils/100 WBC (Bld) 0 % Normal 0-2 [facility] [place] [facility] Comment on above: Performed By: #### Jaime Faria CMPX, CDP #### [facility] [address], [place] [phone] Rn Telephone Triage: Campos Chandra MD Eosinophils (Bld) [#/Vol] 0.00 10*3/uL Normal 0.0-0.4 [facility] Comment on above: Performed By: #### Jaime Faria CMPX, CDP #### [facility] [address], [place] [address] Rn Telephone Triage: Campos Chandra MD Eosinophils/100 WBC (Bld) 0 % Normal 0-5 [facility] Comment on above: Performed By: #### Jaime Faria CMPX, CDP #### [facility] [address], [place] [phone] Rn Telephone Triage: Cmapos Chandra MD Erythrocyte distribution width (RBC) [Ratio] 12.8 % Normal 12.1-15.2 [facility] Comment on above: Performed By: #### Jaime Faria CMPX, CDP #### [facility] [address] [place] [address] Rn Telephone Triage: Campos Chandra MD Hematocrit (Bld) [Volume fraction] 36.7 % Normal 36-46 [facility] Comment on above: Performed By: #### Jaime Faria, CMPX, CDP #### [facility] [address] [place] [address] Rn Telephone Triage: Capmos Chandra MD Hemoglobin (Bld) [Mass/Vol] 12.5 g/dL Normal 12.0-16.0 [facility] Comment on above: Performed By: #### Jaime Faria CMPX, CDP #### [facility] [address] [place] [address] Rn Telephone Triage: Campos Chandra MD Lymphocytes (Bld) [#/Vol] 2.70 10*3/uL Normal 1.0-4.8 [facility] Comment on above: Performed By: #### Jaime Faria CMPX, CDP #### [facility] [address] [place] [address] Rn Telephone Triage: Campos Chandra MD Lymphocytes/100 WBC (Bld) 30 % Normal 15-40 [facility] Comment on above: Performed By: #### Jaime Faria CMPX, CDP #### [facility] [address] [place] [address] Rn Telephone Triage: Campos Chandra MD MCH (RBC) [Entitic mass] 30.6 pg Normal 26-34 [facility] Comment on above: Performed By: #### Jaime Faria CMPX, CDP #### [facility] [address] [place] [address] Rn Telephone Triage: Campos Chandra MD MCHC (RBC) [Mass/Vol] 34.2 g/dL Normal 31-37 [facility] Comment on above: Performed By: #### Jaime Faria, CMPX, CDP #### [facility] [address] [place] [address] Rn Telephone Triage: Campos Chandra MD MCV (RBC) [Entitic vol] 89.7 fL Normal 80-100 M [facility] Comment on above: Performed By: #### M G, CMPX, CDP #### [facility] [address], [place] [phone] ([phone] Rn Telephone Triage: Campos Chandra MD Monocytes (Bld) [#/Vol] 0.50 10*3/uL Normal 0.0-1.0 [facility] Comment on above: Performed By: #### Jaime Faria, CMPX, CDP #### [facility] [address], [place] [phone] ([phone] Rn Telephone Triage: Campos Chandra MD Monocytes/100 WBC (Bld) 5 % Normal 4-8 [facility] Comment on above: Performed By: #### Jaime Faria, CMPX, CDP #### [facility] [address], [place] [phone] ([phone] Rn Telephone Triage: Campos Chandra MD Neutrophil (Seg) 65 % Normal 47-75 [facility] Comment on above: Performed By: #### Jaime Faria, CMPX, CDP #### [facility] [address], [place] [phone] ([phone] Rn Telephone Triage: Campos Chandra MD Platelets (Bld) [#/Vol] 271 10*3/uL Normal 140-450 [facility] Comment on above: Performed By: #### M G, CMPX, CDP #### [facility] [address], [place] [phone] ([phone] Rn Telephone Triage: Campos Chandra MD RBC (Bld) [#/Vol] 4.09 10*6/uL Normal 4.0-5.2 [facility] Comment on above: Performed By: #### Jaime G, CMPX, CDP #### [facility] [address], [place] [phone] Rn Telephone Triage: Campos Chandra MD WBC (Bld) [#/Vol] 8.9 10*3/uL Normal 3.5-11.0 [facility] Comment on above: Performed By: #### M Bienvenido CMPX, CDP #### [facility] [address] [phone] Rn Telephone Triage: Campos Chandra MD Abs.Imm.Granulocyte NOT REPORTED Normal 0.00-0.30 [facility] Comment on above: Performed By: #### M Bienvenido CMPX, CDP #### [facility] [address] [place] [address] Rn Telephone Triage: Campos Chandra MD Immature Granulocyte NOT REPORTED Normal 0 [facility] Comment on above: Performed By: #### Jaime Faria CMPX, CDP #### [facility] [address] [phone] Rn Telephone Triage: Campos Chandra MD MPV NOT REPORTED Normal 6.0-12.0 [facility] Comment on above: Performed By: #### Jaime Faria CMPX, CDP #### [facility] [address] [phone] Rn Telephone Triage: Campos Chandra MD NRBC Automated NOT REPORTED Normal [facility] Comment on above: Performed By: #### M Bienvenido CMPX, CDP #### [facility] [address] [phone] Rn Telephone Triage: Campos Chandra MD Platelet Estimate NOT REPORTED Normal [facility] Comment on above: Performed By: #### Jaime Faria CMPX, CDP #### [facility] [address] [phone] Rn Telephone Triage: Campos Chandra MD RBC morphology finding Nom (Bld) NOT REPORTED Normal [facility] Comment on above: Performed By: #### M Bienvenido CMPX, CDP #### [facility] [address], [place] [phone] Rn Telephone Triage: Campos Chandra MD WBC Morphology NOT REPORTED Normal [facility] Comment on above: Performed By: #### Jaime Faria CMPX, CDP #### [facility] [address], [place] [phone] Rn Telephone Triage: Campos Chandra MD Comp Metabolic Pr/rfx MGon 0 - Potassium [Moles/Vol] 3.5 mmol/L Low 3.7-5.3 [facility] Comment on above: Performed By: #### TORRIE Mcdonald, CDP #### [facility] [address] [place] [address] Rn Telephone Triage: Campos Chandra MD (cont.) Normal [facility] Comment on above: Result Comment: Aver age GFR for 30-39 years old: 107 mL/min/1.73sq m Chronic Kidney Disease: <60 mL/min/1.73sq m Kidney failure: <15 mL/min/1.73sq m eGFR calculated using average adult body mass. Additional eGFR calculator available at: http://www.[employer]/multiple_crcl_2012.htm Performed By: #### TORRIE Mcdonald, CDP #### [facility] [address] [place] [address] Rn Telephone Triage: Campos Chandra MD Albumin [Mass/Vol] 3.8 g/dL Normal 3.5-5.2 [facility] Comment on above: Performed By: #### Jaiem Faria CMPX, CDP #### [facility] [address] [place] [address] Rn Telephone Triage: Campos Chandra MD Alkaline Phos 56 U/L Normal 35-104 [facility] Comment on above: Performed By: #### Jaime Faria CMPX, CDP #### [facility] [address] [place], [place] [phone] Rn Telephone Triage: Campos Chandra MD ALT [Catalytic activity/Vol] 13 U/L Normal 5-33 [facility] Comment on above: Performed By: #### Jaime Faria CMPX, CDP #### [facility] [address] [place] [address] Rn Telephone Triage: Campos Chandra MD Anion gap [Moles/Vol] 10 mmol/L Normal 9-17 [facility] Comment on above: Performed By: #### Jaime Faria CMPX, CDP #### [facility] [address] [place], [place] [phone] Rn Telephone Triage: Campos Chandra MD AST [Catalytic activity/Vol] 16 U/L Normal <32 [facility] Comment on above: Performed By: #### Jaime Faria CMPX, CDP #### [facility] [address] [place] [address] Rn Telephone Triage: Campos Chandra MD Bilirubin [Mass/Vol] 0.23 mg/dL Low 0.30-1.20 [facility] Comment on above: Performed By: #### Jaime Faria CMPX, CDP #### [facility] [address] [place] [address] Rn Telephone Triage: Campos Chandra MD BUN/CRE Ratio 18 Normal 9-20 [facility] Comment on above: Performed By: #### Jaime Faria CMPX, CDP #### [facility] [address] [place] [address] Rn Telephone Triage: Campos Chandra MD Calcium [Mass/Vol] 9.2 mg/dL Normal 8.6-10.4 [facility] Comment on above: Performed By: #### Jaime Faria CMPX, CDP #### [facility] [address], [place] [phone] Rn Telephone Triage: Campos Chandra MD Chloride [Moles/Vol] 105 mmol/L Normal 98-107 [facility] Comment on above: Performed By: #### M Bienvenido, CMPX, CDP #### [facility] [address], [place] [phone] Rn Telephone Triage: Campos Chandra MD CO2 [Moles/Vol] 23 mmol/L Normal 20-31 [facility] Comment on above: Performed By: #### M Bienvenido, CMPX, CDP #### [facility] [address], [place] [phone] Rn Telephone Triage: Campos Chandra MD Creatinine [Mass/Vol] 0.44 mg/dL Low 0.50-0.90 [facility] Comment on above: Performed By: #### Jaime Faria, CMPX, CDP #### [facility] [address], [place] [phone] Rn Telephone Triage: Campos Chandra MD GFR, Amer >60 Normal >60 [facility] Comment on above: Performed By: #### Jaime Faria, CMPX, CDP #### [facility] [address], [place] [phone] Rn Telephone Triage: Campos Chandra MD GFR,non Amer >60 Normal >60 [facility] Comment on above: Performed By: #### Jaime Faria, CMPX, CDP #### [facility] [address], [place] [phone] Rn Telephone Triage: Campos Chandra MD Glucose [Mass/Vol] 90 mg/dL Normal 70-99 [facility] Comment on above: Performed By: #### M Bienvenido, CMPX, CDP #### [facility] [address], [place] [phone] Rn Telephone Triage: Campos Chandra MD Protein [Mass/Vol] 7.0 g/dL Normal 6.4-8.3 [facility] Comment on above: Performed By: #### M G, CMPX, CDP #### [facility] [address], [place] [phone] Rn Telephone Triage: Campos Chandra MD Sodium [Moles/Vol] 138 mmol/L Normal 135-144 [facility] Comment on above: Performed By: #### M G, CMPX, CDP #### [facility] [address], [place] [phone] Rn Telephone Triage: Campos Chandra MD Urea nitrogen [Mass/Vol] 8 mg/dL Normal 6-20 [facility] Comment on above: Performed By: #### M G, CMPX, CDP #### [facility] [address], [place] [phone] Rn Telephone Triage: Campos Chandra MD Albumin/Glob Ratio NOT REPORTED Normal 1.0-2.5 [facility] Comment on above: Performed By: #### M G, CMPX, CDP #### [facility] [address], [place] [phone] Rn Telephone Triage: Campos Chandra MD Staging: NOT REPORTED Normal [facility] Comment on above: Performed By: #### M G, CMPX, CDP #### [facility] [address], [place] [phone] Rn Telephone Triage: Campos Chandra MD Comprehensive Metabolic Pane l w/ Reflex to MGOrdered By: Nathaly Patterson on 04-30-2021 Albumin [Mass/Vol] 3.8 g/dL 3.5 - 5.2 g/dL [facility] [employer] Phone: Albumin/Globulin Ratio NOT REPORTED [employer] Phone: ALP (Bld) [Catalytic activity/Vol] 56 U/L 35 - 104 U/L [employer] Phone: ALT [Catalytic activity/Vol] 13 U/L 5 - 33 U/L [employer] Phone: Anion gap [Moles/Vol] 10 mmol/L 9 - 17 mmol/L [employer] Phone: AST [Catalytic activity/Vol] 16 U/L <32 [employer] Phone: Bilirubin [Mass/Vol] 0.23 mg/dL Low 0.30 - 1.20 mg/dL [employer] Phone: Calcium [Mass/Vol] 9.2 mg/dL 8.6 - 10. 4 mg/dL [employer] Phone: Chloride [Moles/Vol] 105 mmol/L 98 - 10 7 mmol/L [employer] Phone: CO2 [Moles/Vol] 23 mmol/L 20 - 31 mmol/L [employer] Phone: Creatinine [Mass/Vol] 0.44 mg/dL Low 0.50 - 0.90 mg/dL [employer] Phone: Free PSA/Total PSA [Mass fraction] 7.0 g/dL 6.4 - 8.3 g/dL [employer] Phone: GFR >60 >60 mL/min [employer] Phone: GFR Non- >60 >60 mL/min [employer] Phone: GFR/1.73 sq M.predicted MDRD (S/P/Bld) [Vol rate/Area] [employer] Phone: Comment on above: Average GFR for 30-3 9 years old: 107 mL/min/1.73sq m Chronic Kidney Disease: <60 mL/min/1.73sq m Kidney failure: <15 mL/min/1.73sq m eGFR calculated using average adult body mass. Additional eGFR calculator available at: http://www.[employer]/multiple_crcl_2012.htm GFR/1.73 sq M.predicted MDRD (S/P/Bld) [Vol rate/Area] NOT REPORTED [employer] Phone: Glucose [Mass/Vol] 90 mg/dL 70 - 99 mg/dL [facility] [employer] Phone: Interpretation and review of laboratory results Abnormal [facility] [employer] Phone: Potassium [Moles/Vol] 3.5 mmol/L Low 3.7 - 5.3 mmol/L [facility] [employer] Phone: Sodium [Moles/Vol] 138 mmol/L 135 - 144 mmol/L [facility] [employer] Phone: Urea nitrogen (BldV) [Mass/Vol] 8 mg/dL 6 - 20 mg/dL [facility] [employer] Phone: Urea nitrogen/Creatinine (Bld) [Mass ratio] 18 [facility] [employer] Phone: [facility] [employer] Phone: Drug Scr, Abuse, Uron 2020 Amphetamine(s),Ur Negative Normal NEG [facility] Comment on above: Result Comment: (Positive cutoff 500 ng/mL) Performed By: #### U MICAO, UA, DIOGENES #### [facility] [address] [place] [address] Rn Telephone Triage: Campos Chandra MD Barbiturate(s),Ur Negative Normal NEG [facility] Comment on above: Result Comment: (Positive cutoff 200 ng/mL) Performed By: #### U MICAO, UA, DIOGENES #### [facility] [address] [place] [id number] Rn Telephone Triage: Campos Chandra MD Benzodiazepine(s) Negative Normal NEG [facility] Comment on above: Result Comment: (Positive cutoff 150 ng/mL) Performed By: #### U MICAO, UA, DIOGENES #### [facility] [address] [place] [address] Rn Telephone Triage: Campos Chandra MD Cannabinoid(s),Ur Negative Normal NEG [facility] Comment on above: Result Comment: (Positive cutoff 50 ng/mL) Performed By: #### U MICAO, UA, DIOGENES #### [facility] [address] [place], [place] [id number] Rn Telephone Triage: Campos Chandra MD Cocaine Metabolite Negative Normal NEG [facility] Comment on above: Result Comment: (Positive cutoff 150 ng/mL) Performed By: #### U MICAO, UA, DIOGENES #### [facility] [address] [place] [id number] Rn Telephone Triage: Campos Chandra MD Methadone Ql (U) Negative Normal NEG [facility] Comment on above: Result Comment: (Positive cutoff 200 ng/mL) Performed By: #### U MICAO, UA, DIOGENES #### [facility] [address] [place] [address] Rn Telephone Triage: Campos Chandra MD Methamphetamine, Ur Negative Normal [facility] Comment on above: Result Comment: (Positive cutoff 500 ng/mL) Performed By: #### U MICAO, UA, DIOGENES #### [facility] [address] [place], [place] [phone] Rn Telephone Triage: Campos Chandra MD Opiate(s), Ur Negative Normal [facility] Comment on above: Result Comment: (Positive cutoff 100 ng/mL) Performed By: #### U MICAO, UA, DIOGENES #### [facility] [address] [place] [phone] Rn Telephone Triage: Campos Chandra MD Oxycodone, Urine Negative Normal NEG [facility] Comment on above: Result Comment: (Positive cutoff 100 ng/mL) Performed By: #### U MICAO, UA, DIOGENES #### [facility] [address] [place] [address] Rn Telephone Triage: Campos Chandra MD Phencyclidine, Ur Negative Normal NEG [facility] Comment on above: Result Comment: (Positive cutoff 25 ng/mL) Performed By: #### U MICAO, UA, DIOGENES #### [facility] [address] [place] [phone] Rn Telephone Triage: Campos Chandra MD Propoxyphene,Urine Negative Normal NEG [facility] Comment on above: Result Comment: (Positive cutoff 300 ng/mL) Performed By: #### U MICAO, UA, DIOGENES #### [facility] [address] [place] [address] Rn Telephone Triage: Campos Chandra MD Tricyclic antidepressants Screen Ql (U) Negative Normal NEG [facility] Comment on above: Result Comment: (Positive cutoff 300 ng/mL) Drug screen results are to be used for medical purposes only. All positive results are unconfirmed. Testing for employment or legal uses should be sent to a reference laboratory for confirmation. Performed By: #### U MICAO, UA, DIOGENES #### [facility] [address] [place] [address] Rn Telephone Triage: Campos Chandra MD Buprenorphrine, Ur NOT REPORTED Normal NEG [facility] Comment on above: Performed By: #### U MICAO, UA, DIOGENES #### [facility] [address] [place] [address] Rn Telephone Triage: Campos Chandra MD Interpretive Info NOT REPORTED Normal [facility] Comment on above: Performed By: #### U MICAO, UA, DIOGENES #### [facility] [address] [place] [address] Rn Telephone Triage: Campos Chandra MD MDMA, Urine NOT REPORTED Normal NEG [facility] Comment on above: Performed By: #### U MICAO, UA, DIOGENES #### [facility] [address] [place] [phone] Rn Telephone Triage: Campos Chandra MD Drug screen multi urineOrder ed By: Nathaly Patterson on 04-30-2021 Amphetamine Screen, Ur Negative NEGATIVE [facility] [employer] Work Phone: Comment on above: (Positive cutoff 500 ng/mL) Barbiturate Screen, Ur Negative NEGATIVE [facility] Work Phone: Comment on above: (Positive cutoff 200 ng/mL) Benzodiazepine Screen, Urine Negative NEGATIVE [facility] Work Phone: Comment on above: (Positive cutoff 150 ng/mL) Buprenorphine Urine NOT REPORTED NEGATIVE [facility] Work Phone: Cannabinoid Scrn, Ur Negative NEGATIVE [facility] Work Phone: Comment on above: (Positive cutoff 50 ng/mL) Cocaine Metabolite, Urine Negative NEGATIVE [facility] Work Phone: Comment on above: (Positive cutoff 150 ng/mL) MDMA, Urine NOT REPORTED NEGATIVE [facility] Work Phone: Methadone Screen, Urine Negative NEGATIVE [facility] Work Phone: Comment on above: (Positive cutoff 200 ng/mL) Methamphetamine, Urine Negative NEGATIVE [facility] Work Phone: Comment on above: (Positive cutoff 500 ng/mL) Opiates, Urine Negative NEGATIVE [facility] Work Phone: Comment on above: (Positive cutoff 100 ng/mL) Oxycodone Screen, Ur Negative NEGATIVE [facility] Work Phone: Comment on above: (Positive cutoff 100 ng/mL) Phencyclidine, Urine Negative NEGATIVE [facility] Work Phone: Comment on above: (Positive cutoff 25 ng/mL) Propoxyphene, Urine Negative NEGATIVE [facility] Work Phone: Comment on above: (Positive cutoff 300 ng/mL) Test Information NOT REPORTED [facility] Work Phone: Tricyclic Antidepressants, Urine Negative NEGATIVE [facility] Work Phone: Comment on above: (Positive cutoff 300 ng/mL) Drug screen results are to be used for medical purposes only. All positive results are unconfirmed. Testing for employment or legal uses should be sent to a reference laboratory for confirmation. [facility] Work Phone: HCG, Quanton 04-30-2021 HCG, Quant [id number] IU/L High <5 [facility] Comment on above: Result Comment: Non-preg [...] liver. Performed By: #### B HCG #### [facility] [address] [place] [address] Rn Telephone Triage: Campos Chandra MD Magnesiumon 04-30-2021 Magnesium [Mass/Vol] 1.8 mg/dL Normal 1.6-2.6 [facility] Comment on above: Performed By: #### M G, CMPX, CDP #### [facility] [address] [place] [address] Rn Telephone Triage: Campos Chandra MD MagnesiumOrdered By: Nathaly liu on 04-30-2021 Magnesium [Mass/Vol] 1.8 mg/dL 1.6 - 2 .6 mg/dL [facility] Work Phone: [facility] Work Phone: Microscopic UrinalysisOrdere d By: Nathaly Patterson on 04-30-2021 - [facility] Work Phone: Amorphous, UA NOT REPORTED None [facility] Work Phone: Bacteria, UA NOT REPORTED None [facility] Work Phone: Casts UA NOT REPORTED /LPF [facility] Work Phone: Crystals, UA NOT REPORTED None /HPF [facility] Work Phone: Epithelial Cells UA NOT REPORTED /HPF [facility] Work Phone: Mucus, UA NOT REPORTED None [facility] Work Phone: Other Observations UA NOT REPORTED NOT REQ. M [facility] [employer] Work Phone: RBC, UA LOADED [facility] [employer] Work Phone: Renal Epithelial, UA NOT REPORTED 0 /HPF Me [facility] [employer] Work Phone: Trichomonas, UA NOT REPORTED None [facility] Work Phone: WBC, UA 2 TO 5 0 /HPF [facility] [employer] Work Phone: Yeast, UA NOT REPORTED None [facility] [employer] Phone: [facility] [employer] Phone: Urinalysis, Routineon 2020 Bilirubin, SemiQt,Ur Negative Normal NEG [facility] Comment on above: Performed By: #### U MICAO, UA, DIOGENES #### [facility] [address] [place] [phone] Rn Telephone Triage: Campos Chandra MD Blood, Urine 3+ Abnormal NEG [facility] Comment on above: Performed By: #### U MICAO, UA, DIOGENES #### [facility] [address] [place] [phone] Rn Telephone Triage: Campos Chandra MD Clarity (U) CLOUDY Abnormal CLEAR [facility] Comment on above: Performed By: #### U MICAO, UA, DIOGENES #### [facility] [address] [place], [place] [phone] Rn Telephone Triage: Campos Chandra MD Color (U) YELLOW Normal YEL [facility] Comment on above: Performed By: #### U MICAO, UA, DIOGENES #### [facility] [address] [place] [phone] Rn Telephone Triage: Campos Chandra MD Comment Normal [facility] Comment on above: Performed By: #### U MICAO, UA, DIOGENES #### [facility] [address] [place] [address] Rn Telephone Triage: Campos Chandra MD Glucose Ql (U) Negative Normal NEG [facility] Comment on above: Performed By: #### U MICAO, UA, DIOGENES #### [facility] [address] [place] [address] Rn Telephone Triage: Campos Chandra MD Ketones Ql (U) Negative Normal NEG [facility] Comment on above: Performed By: #### U MICAO, UA, DIOGENES #### [facility] [address], [place] [phone] Rn Telephone Triage: Campos Cahndra MD Leukocyte esterase Test strip Ql (U) 1+ Abnormal NEG [facility] Comment on above: Performed By: #### U MICAO, UA, DIOGENES #### [facility] [address] [place] [address] Rn Telephone Triage: Campos Chandra MD Nitrite,Ur Negative Normal NEG [facility] Comment on above: Performed By: #### U MICAO, UA, DIOGENES #### [facility] [address] [place] [address] Rn Telephone Triage: Campos Chandra MD PH,Ur 5.0 Normal 5.0-8.0 [facility] Comment on above: Performed By: #### U MICAO, UA, DIOGENES #### [facility] [address] [place] [address] Rn Telephone Triage: Campos Chandra MD Protein Ql (U) 3+ Abnormal NEG [facility] Comment on above: Performed By: #### U MICAO, UA, DIOGENES #### [facility] [address] [place] [address] Rn Telephone Triage: Campos Chandra MD Spec. [place],Ur 1.025 Normal 1.005-1.030 [facility] Comment on above: Performed By: #### U MICAO, UA, DIOGENES #### [facility] [address] [place] [address] Rn Telephone Triage: Campos Chandra MD Urobilinogen,Ur Normal Normal NORM [facility] Comment on above: Performed By: #### U MICAO, UA, DIOGENES #### [facility] [address] [place] [address] Rn Telephone Triage: Campos Chandra MD Urinalysis, reflex to micros copicOrdered By: Nathaly Cory on 04-30-2021 Bilirubin Urine Negative NEGATIVE [facility] Work Phone: Color, UA YELLOW YELLOW [employer] Work Phone: Glucose, Ur Negative NEGATIVE [employer] Work Phone: Interpretation and review of laboratory results Abnormal [employer] Phone: Ketones Ql (U) Negative NEGATIVE [facility] Work Phone: Leukocyte esterase Test strip Ql (U) 1+ Abnormal NEGATIVE [employer] Phone: Nitrite, Urine Negative NEGATIVE [facility] Work Phone: pH, UA 5.0 [employer] Phone: Protein, UA 3+ Abnormal NEGATIVE [employer] Phone: Specific [place], UA 1.025 [employer] Phone: Turbidity UA CLOUDY Abnormal CLEAR [employer] Phone: Urinalysis Comments [employer] Phone: Urine Hgb 3+ Abnormal NEGATIVE [employer] Phone: Urobilinogen, Urine Normal Normal [facility] Phone: [employer] Phone: Urinalysis,Microon 1 ----- Normal [facility] Comment on above: Performed By: #### U MICAO, UA, DIOGENES #### [facility] [address] [place], [place] [phone] Rn Telephone Triage: Campos Chandra MD Urine RBC's LOADED Normal 0-2 [facility] Comment on above: Performed By: #### U MICAO, UA, DIOGENES #### [facility] [address] [place], [place] [phone] Rn Telephone Triage: Campos Chandra MD Urine WBC's 2 TO 5 Normal 0 [facility] Comment on above: Performed By: #### U MICAO, UA, DIOGENES #### [facility] [address] [place], [place] [phone] Rn Telephone Triage: Campos Chandra MD Amorphous sediment LM Ql (Urine sed) NOT REPORTED Normal [facility] Comment on above: Performed By: #### U MICAO, UA, DIOGENES #### [facility] [address] [place] [address] Rn Telephone Triage: Campos Chandra MD Bacteria NOT REPORTED Normal [facility] Comment on above: Performed By: #### U MICAO, UA, DIOGENES #### [facility] [address] [place], [place] [phone] Rn Telephone Triage: Campos Chandra MD Casts NOT REPORTED Normal [facility] Comment on above: Performed By: #### U MICAO, UA, DIOGENES #### [facility] [address] [place], [place] [phone] Rn Telephone Triage: Campos Chandra MD Crystals LM Nom (Urine sed) NOT REPORTED Normal [facility] Comment on above: Performed By: #### U MICAO, UA, DIOGENES #### [facility] [address] [place], [place] [phone] Rn Telephone Triage: Campos Chandra MD Epithelial cells LM Ql (Urine sed) NOT REPORTED Normal [facility] Comment on above: Performed By: #### U MICAO, UA, DIOGENES #### [facility] [address] [place], [place] [phone] Rn Telephone Triage: Campos Chandra MD Epithelial, Renal NOT REPORTED Normal 0 [facility] Comment on above: Performed By: #### U MICAO, UA, DIOGENES #### [facility] [address] [place] [address] Rn Telephone Triage: Campos Chandra MD Mucus Strands NOT REPORTED Normal NONE [facility] Comment on above: Performed By: #### U MICAO, UA, DIOGENES #### [facility] [address] [place] [address] Rn Telephone Triage: Campos Chandra MD Other Observations NOT REPORTED Normal NREQ [facility] Comment on above: Performed By: #### U MICAO, UA, DIOGENES #### [facility] [address] [place] [address] Rn Telephone Triage: Campos Chandra MD Trichomonas NOT REPORTED Normal NONE [facility] Comment on above: Performed By: #### U MICAO, UA, DIOGENES #### [facility] [address] [place] [address] Rn Telephone Triage: Campos Chandra MD Yeast NOT REPORTED Normal [facility] Comment on above: Performed By: #### U MICAO, UA, DIOGENES #### [facility] [address] [place] [address] Rn Telephone Triage: Campos Chandra MD hCG, quantitative, Ordered By: Nathaly Patterson on 04-30-2021 hCG Quant [id number] High <5 IU/L [facility] Work Phone: Comment on above: Non-preg [...] Interpretation and review of laboratory results Abnormal [employer] Phone: [employer] Phone: RPR QUANTon 04-12-2021 Rapid Plasma Reagin, Quant Non-Reactive Normal NonRea<1:1 [facility] Comment on above: Performed By: #### R PRQ #### [facility] [address] [place] [address] Carlos Hull HEP B SURFACE ANTIGEN SCREEN on 04-11-2021 HBsAg Screen Negative Normal Negative [facility] Comment on above: Performed By: #### R UBIGG #### [facility] [address] [place] [address] Carlos Hull HEPATITIS C VIRUS AB W/ REFL EX QUANTon 04-11-2021 HCV AB <0.1 Normal 0.0-0.9 [facility] Comment on above: Performed By: #### H CVPCRR #### [facility] [address] [place] [address] Carlos Hull Interpretation: Comment Normal [facility] Comment on above: Result Comment: Nega tive Not infected with HCV, unless recent infection is suspected or other evidence exists to indicate HCV infection. Performed By: #### H CVPCRR #### [facility] [address] [place] [address] Carlos Hull HIV 1 AND 2 WITH REFLEXon HIV Screen 4th Generation wRfx Non-Reactive Normal Non Reactive [facility] Comment on above: Performed By: #### R PRQ #### [facility] [address] [place] [address] Carlos Hull RUBELLA AB IGGon 04-11-2021 Rubella Antibodies, IgG 2.95 index Normal Immune >0.99 [facility] Comment on above: Result Comment: Non- immune <0.90 Equivocal 0.90 - 0.99 Immune >0.99 Performed By: #### R UBIGG #### [facility] [address] [place] [address] Carlos Della CBC AUTO DIFFon 04-10-2021 BASO # 0.0 103/ul Normal 0.0-0.1 [facility] Comment on above: Performed By: #### R UBIGG #### [facility] [address] [place] [address] Carlos Della Basophils/100 WBC (Bld) 0.3 % Normal 0.2-2.0 [facility] Comment on above: Performed By: #### R UBIGG #### [facility] [address] [place] [address] Carlos Della EO # 0.0 103/ul Normal 0.0-0.7 [facility] Comment on above: Performed By: #### R UBIGG #### [facility] [address] [place] [address] Carlos Della Eosinophils/100 WBC (Bld) 0.5 % Critically low 0.9-7.0 [facility] Comment on above: Performed By: #### R UBIGG #### [facility] [address] [place] [address] Carlos Della Erythrocyte distribution width (RBC) [Ratio] 12.3 % Normal 11.0-15.0 [facility] Comment on above: Performed By: #### R UBIGG #### [facility] [address] [place] [address] Carlos Della Hematocrit (Bld) [Volume fraction] 39.2 % Normal 36.0-48.0 [facility] Comment on above: Performed By: #### R UBIGG #### [facility] [address] [place] [address] Carlos Della Hemoglobin (Bld) [Mass/Vol] 13.0 g/dL Normal 12.0-16.0 [facility] Comment on above: Performed By: #### R UBIGG #### [facility] [address] [place] [address] Carlos Della IG # 0.01 10e3/ul Normal 0.00-0.03 [facility] Comment on above: Performed By: #### R UBIGG #### [facility] [address] [id number] Carlos Della IG % 0.2 % Normal 0.0-0.5 [facility] Comment on above: Performed By: #### R UBIGG #### [facility] [address] [place] [address] Carlos Della LYMPH # 1.7 103/ul Normal 1.2-3.8 [facility] Comment on above: Performed By: #### R UBIGG #### [facility] [address] [place] [address] Carlos Della Lymphocytes/100 WBC (Bld) 25.5 % Normal 20.5-60.0 [facility] Comment on above: Performed By: #### R UBIGG #### [facility] [address] [place] [address] Carlos Della MANUAL DIFF REQ NO Normal [facility] Comment on above: Performed By: #### R UBIGG #### [facility] [address] [place], [place] [id number] Carlos Della MCH (RBC) [Entitic mass] 30.2 pg Normal 26.7-34.0 [facility] Comment on above: Performed By: #### R UBIGG #### [facility] [address] [place] [address] Carlos Della MCHC (RBC) [Mass/Vol] 33.2 g/dL Normal 29.9-35.2 [facility] Comment on above: Performed By: #### R UBIGG #### [facility] [address] [place] [address] Carlos Edlla MCV (RBC) [Entitic vol] 91.2 fL Normal 81.0-99.0 [facility] Comment on above: Performed By: #### R UBIGG #### [facility] [address] [place] [address] Carlos Della MONO # 0.6 103/ul Normal 0.3-0.8 [facility] Comment on above: Performed By: #### R UBIGG #### [facility] [address] [place], [place] [address] Carlos Della Monocytes/100 WBC (Bld) 8.7 % Normal 1.7-12.0 [facility] Comment on above: Performed By: #### R UBIGG #### [facility] [address] [place], [place] [address] Carlos Della NEUT # 4.2 103/ul Normal 1.4-6.5 [facility] Comment on above: Performed By: #### R UBIGG #### [facility] [address] [place], [place] [address] Carlos Della Neutrophils/100 WBC (Bld) 64.8 % Normal 43.0-75.0 [facility] Comment on above: Performed By: #### R UBIGG #### [facility] [address] [place], [place] [address] Carlos Della Platelet mean volume (Bld) [Entitic vol] 9.2 fL Critically low 9.5-13.5 [facility] Comment on above: Performed By: #### R UBIGG #### [facility] [address] [place], [place] [address] Carlos Della PLT 246 103/ul Normal 150-450 [facility] Comment on above: Performed By: #### R UBIGG #### [facility] [address] [place], [place] [address] Carlos Della RBC 4.30 106/ul Normal 4.20-5.40 [facility] Comment on above: Performed By: #### R UBIGG #### [facility] [address] [place], [place] [address] Carlos Della WBC 6.5 103/ul Normal 4.0-11.0 [facility] Comment on above: Performed By: #### R UBIGG #### [facility] [address] [place], [place] [address] Carlos Della CULTURE URINEon 04-10-2021 CULTURE URINE Culture Observations: NO GROWTH Normal [facility] Comment on above: Performed By: #### R PRQ #### [facility] [address] [place], [place] [address] Carlos Hull GLYCOHEMOGLOBIN A1Con 2020 ADA RECOMMENDATION ADA THERAPEUTIC TARGET 6.0 - 7.0 ACTION SUGGESTED > 7.0 Normal [facility] Comment on above: Performed By: #### R UBIGG #### [facility] [address] [place], [place] [address] Carlos Hull Glucose [Mass/Vol] 94 mg/dL Normal [facility] Comment on above: Performed By: #### R UBIGG #### [facility] [address] [place], [place] [address] Carlos Hull HbA1c (Bld) [Mass fraction] 4.9 % Normal <=6.0 [facility] Comment on above: Performed By: #### R UBIGG #### [facility] [address] [place] [address] Carlos Hull BENJAMIN BOX TEST PT SEND OUTo n 04-10-2021 SENT TO REF LAB 04/10/2021 Normal [facility] Comment on above: Performed By: #### R UBIGG #### [facility] [address], [place] [address] Carlos Della TYPE AND SCREENon 04-10-2021 TYPE AND SCREEN Negative Normal [facility] Comment on above: Performed By: #### T NS #### [facility] [address] [place] [address] Carlos Hull US PREG TVon 04-02-2021 US [...] by: AYDE MIN Date: 2021-04-02 09:55 Normal [facility] PAP ACOG PANEL 2: 30 to 65on 12-31-2020 . . Normal [facility] Comment on above: Result Comment: Perf ormed at: WB Performed By: #### [id number] #### [facility] [address] [place] [address] Carlosgaurang Hull Age Gdln ACOG Testing 30-65 Normal [facility] Comment on above: Performed By: #### [id number] #### [facility] [address] [address] Carlos Hull DIAGNOSIS: Comment Abnormal [facility] Comment on above: Result Comment: EPIT HELIAL CELL ABNORMALITY. LOW GRADE SQUAMOUS INTRAEPITHELIAL LESION (LSIL). PREDOMINANCE OF COCCOBACILLI CONSISTENT WITH SHIFT IN VAGINAL MARA IS PRESENT. Performed at: WB Performed By: #### [id number] #### [facility] [address] [place] [address] Carlos Hull Electronically signed by: Comment Normal [facility] Comment on above: Result Comment: Mavis Sharma MD, Pathologist Performed at: WB Performed By: #### [id number] #### [facility] [address] [address] Carlos Hull HPV Aptima Positive Abnormal Negative [facility] Comment on above: Result Comment: This nucleic acid amplification test detects fourteen high-risk HPV types (16,18,31,33,35,39,45,51,52,56,58,59,66,68) without differentiation. Performed at: =G Performed By: #### [id number] #### [facility] [address] [place] [address] Carlos Hull Methodology: Comment Normal [facility] Comment on above: Result Comment: This liquid based ThinPrep(R) pap test was screened with the use of an image guided system. Performed at: WB Performed By: #### [id number] #### [facility] [address] [place] [address] Carlos Hull Note: Comment Normal [facility] Comment on above: Result Comment: The Pap smear is a screening test designed to aid in the detection of premalignant and malignant conditions of the uterine cervix. It is not a diagnostic procedure and should not be used as the sole means of detecting cervical cancer. Both false-positive and false-negative reports do occur. . Performed at: WB Performed By: #### [id number] #### [facility] [address] [address] Carlos Hull Pathologist Provided ICD10 Comment Normal [facility] Comment on above: Result Comment: R87. 612, R87.5 Performed at: WB Performed By: #### [id number] #### [facility] [address] [address] Carlos Hull Performed by: Comment Normal [facility] Comment on above: Result Comment: Roxana Conrad, Weapons System Instrument Mechanic (ASCP) Performed at: WB Performed By: #### [id number] #### [facility] [address] [address] Carlos Hull Recommendation: Comment Abnormal [facility] Comment on above: Result Comment: Sugg est follow up as clinically appropriate. Performed at: WB Performed By: #### [id number] #### [facility] [address] [place] [address] Carlos Hull Specimen adequacy: Comment Normal [facility] Comment on above: Result Comment: Sati sfactory for evaluation. Endocervical and/or squamous metaplastic cells (endocervical component) are present. Performed at: WB Performed By: #### [id number] #### [facility] [address] [place], [place] [address] Carlos Hull Vital Signs Date Time Vital Sign Value Performing Clinician Facility 10-19-2022 16:55-0500 Body temperature 98.06 [degF] Chucho Kwon [facility] 10-19-2022 16:55-0500 Diastolic blood pressure 102 mm[Hg] Chucho Kwon [facility] 10-19-2022 16:55-0500 Heart rate 91 /min Chucho Kwon [facility] 10-19-2022 16:55-0500 Respiratory rate 18 /min Chucho Kwon [facility] 10-19-2022 16:55-0500 SaO2% (BldA) [Mass fraction] 98 % Chucho Kwon [facility] 10-19-2022 16:55-0500 Systolic blood pressure 146 mm[Hg] Chucho Kwon [facility] 05-21-2021 00:06-0400 Body weight 75.[address] EL JAIME [facility] Comment on above: Performed By: #### AFPMAT #### [facility] [address] [place] [address] Carlos Hull 04-30-2021 17:33-0400 Body height 170.2 cm Nathaly Patterson MD Work Phone: [employer] Work Phone: 04-30-2021 17:33-0400 Body mass index (BMI) [Ratio] 25.98 kg/m2 Nathaly Patterson MD Work Phone: [facility] Work Phone: 04-30-2021 17:33-0400 Body temperature 97.9 [degF] Nathaly Patterson MD Work Phone: [employer] Work Phone: 04-30-2021 17:33-0400 Body weight 75.25 kg Nathaly Patterson MD Work Phone: [facility] Work Phone: 04-30-2021 17:33-0400 Diastolic blood pressure 73 mm[Hg] Nathaly Patterson MD Work Phone: [employer] Work Phone: 04-30-2021 17:33-0400 Heart rate 71 /min Nathaly Patterson MD Work Phone: [facility] Work Phone: 04-30-2021 17:33-0400 Respiratory rate 18 /min Nathaly Patterson MD Work Phone: [facility] Work Phone: 04-30-2021 17:33-0400 SaO2% (BldA) [Mass fraction] 100 % Nathaly Patterson MD Work Phone: [facility] Work Phone: 04-30-2021 17:33-0400 Systolic blood pressure 127 mm[Hg] Nathaly Patterson MD Work Phone: [facility] Work Phone: 04-08-2021 20:32-0400 Body temperature 98.2 [degF] Anthony Barba MD Work Phone: [facility] Work Phone: 04-08-2021 20:32-0400 Body weight 76.61 kg Anthony Barba MD Work Phone: [facility] Work Phone: 04-08-2021 20:32-0400 Diastolic blood pressure 76 mm[Hg] Anthony Barba MD Work Phone: [facility] Work Phone: 04-08-2021 20:32-0400 Heart rate 66 /min Anthony Barba MD Work Phone: [facility] Work Phone: 04-08-2021 20:32-0400 Respiratory rate 18 /min Anthony Barba MD Work Phone: [facility] Work Phone: 04-08-2021 20:32-0400 SaO2% (BldA) [Mass fraction] 98 % Anthony Barba MD Work Phone: [facility] Work Phone: 04-08-2021 20:32-0400 Systolic blood pressure 117 mm[Hg] Anthony Barba MD Work Phone: [facility] Work Phone: Encounters Encounter Date Encounter Type Care Provider Facility Start: 04-17-2025 End: 04-17-2025 ambulatory [facility] Facility:[facility] Start: 06-06-2024 End: 06-06-2024 ambulatory [facility] Facility:[facility] Start: 10-19-2022 End: 10-19-2022 Emergency department patient visit Chucho Kwon [facility] Start: 10-19-2022 End: 10-19-2022 Emergency department patient visit Chucho Kwon [facility] Start: 10-15-2021 End: 10-17-2021 Evaluation and management [...] 04-30-2021 Emergency department patient visit NATHALY PATTERSON [facility] Start: 04-30-2021 End: 04-30-2021 Emergency department patient visit Nathaly Patterson MD Work Phone: [facility] ED Comment on above: Vaginal bleeding in (Primary Dx) Start: 04-30-2021 End: 05-01-2021 ambulatory GLEN PACKER Facility:[facility] Start: 04-10-2021 End: 04-11-[address] EL JAIME Facility:[facility] Start: 04-08-2021 End: 04-08-2021 Emergency department patient visit ANTHONY BARBA [facility] Start: 04-08-2021 End: 04-08-2021 Emergency department patient visit Anthony Barba MD Work Phone: [facility] ED Comment on above: Dental infection [...] Activity Detail Author Start: 06-17-2021 Influenza vaccination [facility] Work Phone: Start: 2000 COVID-19 Vaccine (1) COVID-19 Vaccin e (1) [facility] Work Phone: End: 04-30-2021 Culture, Urine Culture, Urine Microbiology Routine Once for 1 Occurrences starting 04/30/2021 until 04/30/2021 [employer] Phone: Comment on above: Once for 1 Occurrenc es starting 04/30/2021 until 04/30/2021 Culture, Urine Culture, Urine Microbiology Routine 04/30/2021 6:10 PM EDT [employer] Phone: Payers Date Payer Category Payer Unknown [id number] 2.16.84 [id number] 1988 Unknown [id number] 2.16.84 [id number] 1988 Unknown [id number] 2.16.84 [id number] 1988 Unknown [id number] 2.16.84 [id number] 1988 Unknown [id number] 2.16.84 [id number] 1988 Unknown [id number] 2.16.84 [id number] 1988 Unknown [id number] 2.16.84 [id number] 1988 Unknown [id number] 2.16.84 [id number] 1988 Unknown [id number] 2.16.84 [id number] 1988 Unknown [id number] 2.16.84 0.1.792784.3.579.2.593 1988 Unknown [id number] 2.16.84 [id number] 1988 Unknown [id number] 2.16.84 [id number] 1988 Unknown [id number] 2.16.84 [id number] 1988 Unknown [id number] 2.16.84 [id number] 1988 Unknown [id number] 2.16.8 [id number] 1959 Private Health Insurance [id number] 1959 Self-pay 1959 Unknown [id number] Unknown [id number] 2.16.84 [id number] Social History Date Type Detail Facility Start: 04-08-2021 End: 04-30-2021 Tobacco smoking status NHIS Never smoker [employer] Phone: Start: 04-08-2021 End: 04-30-2021 Tobacco use and exposure Never used [facility] Start: 04-08-2021 End: 04-30-2021 Alcohol intake Lifetime non-drinker (finding) [employer] Phone: Start: 04-08-2021 History SDOH Alcohol Frequency 1 [employer] Phone: Start: 01-29-2021 [facility] Work Phone: Start: 1990 Sex Assigned At Not on file [facility] [employer] Phone: Exposure to SARS-CoV -2 (event) Not sure [facility] Start: 06-13-2017 Tobacco smoking status Smokes tobacco daily (finding) [facility] Comment on above: 12 ppd Sex Assigned At Female [facility] Functional Status Date Assessment Result Facility 10-19-2022 Functional Status N/A [facility] Discharge instructions 10-19-2022 Note Date & [...] Follow these instructions at home: Medicines Take rrid-djq-mofpcbf and prescription medicines only as told by [...] and water are not available, use hand operating room manager. Avoid contact with people who have cold [...] 11/10/2005 Document Revised: 08/16/2019 Document Reviewed: 03/23/2017 [employer] Patient Education 2020 [employer]. 10/19/2022 18:40:13 Upper Respiratory Infection, Adult, Magr-lt-Tjmg Upper Respiratory Infection, Adult An upper respiratory [...] and other clear broths. General instructions Take zdbn-jfb-ematrpy and prescription medicines only as told by [...] not have soap and water, use hand operating room manager. Avoid touching your mouth, face, eyes, or [...] get better within 7 10 days. Take mhkt-vfl-lfpbvjf and prescription medicines only as told by your doctor. This information is not intended to replace advice given to you by your health care provider. Make sure you discuss any questions you have with your health care provider. Document Released: 03/21/2009 Document Revised: 10/11/2019 Document Reviewed: 05/26/2018 [employer] Patient Education 2020 [employer]. Follow Up Care 10/19/2022 16:53:44 With:Joaquim Link Address: Nasir Painter, [address] [facility] [place] [address]- Business (1) When:10/22/2022 18:20:33 Comments:Follow-up with your primary care provider in 3 to 5 days. If symptoms worsen, do not improve, or new symptoms arise please report back to emergency department for further evaluation. [facility] Evaluation + Plan note Note Date & Type Note Facility Evaluation + Plan note No data available for this section [facility] Evaluation note Note Date & Type Note Facility Evaluation note Diagnosis Dental infection- Primary Acute apical periodontitis of pulpal origin [facility] Phone: Evaluation note Note Date & Type Note Facility Evaluation note Diagnosis Vaginal bleeding in - Primary Unspecified antepartum hemorrhage, unspecified as to episode of care documented [facility] this [facility] Phone: Hospital Discharge instructions Attachments Note Date & Type Note Facility Hospital Discharge instructions The following attachments cannot be sent through Care Everywhere.Tooth: Abscessed ([place])documented in this encounter [facility] [employer] Phone: Hospital Discharge instructions Attachments Note Date & Type Note Facility Hospital Discharge instructions The following attachments cannot be sent through Care Everywhere.: Vaginal Bleeding ([place])documented in this encounter [employer] Phone: Progress note Note Date & Type Note Facility Progress note No data available for this section [facility] Summary Purpose Family History No Family History [...] pregn ant, pt of Dr. Jaime in [place]. Pt started bleeding this afternoon around 4pm. Pt called office and they told her to go to hospital. She came here because she lives in [place]. Pt also c/o abdominal cramping. Ordered Prescriptions [...] CREATED AUTHOR AUTHOR'S ORGANIZ ATION 10/23/2021 [facility] DATE CREATED AUTHOR AUTHOR'S ORGANIZ ATION 08/16/2023 [facility] DATE CREATED AUTHOR AUTHOR'S ORGANIZ ATION 04/19/2025 [facility] Patient Care team informatio n (unrecognized section and content) Personnel Name: Joaquim Osuna DO Address: Address: [address] [place] [address], [facility] [address] [place], [place] [address] FOR RECORDS PERTAINING TO PATIENTS WHO ARE [...] BE BASED ON THE PRIMARY CLINICAL RECORDS. [facility]. provides no warranty or guarantee of the accuracy or completeness of information in this document.
== END 2025-07-08 12:56 | disposition home or self-care (01) ==
LOC: LAB 13:00
PROVIDERS: Visit Provider Obstetrics & Gynecology
DX: Z32.01 Encounter for pregnancy test, result positive (principal)
CPT/HCPCS: 36415; 84702

== ENCOUNTER 2025-07-09 14:24 | Outpatient (OUT) | payer BC, SELFPAY ==
--- OUTSIDE RECORDS SUMMARY | 2025-07-09 14:27 | XMS_ITS | Encounter Summary ---
Author Organization [facility] Address [address] [place] [address] Care Team Providers Care Dope Weigh Operator Name Role Phone Nakul Elias DO Primary Care Provider [phone] Encounter Details Date Type Department Care Team (Late Contact Info) Description 07/08/2025 Abstract [facility]ZIER [address] [facility] [place] [place] [phone] Sudhir Brooks DO [address] [place] [id number] Social History Tobacco Use Types Packs/Day Years Used Date Smoking Tobacco: Never Assessed Comments Unknown Sex and Gender Information Value Date Recorded Sex Assigned at Not on file Legal Sex Female 7:15 PM EDT Gender Identity Not on file Sexual Orientation Not on file documented as of this encounter Plan of Treatment Upcoming Encounters Date Type Department Care Team (Late st Contact Info) Description 08/13/2025 10:20 AM EDT Procedure Visit KRISTAL FRAZIER [address] [place], [place] [address] [phone] Sudhir Brooks DO [address] [place], [place] [id number] documented as of this encounter Visit Diagnoses Not on filedocumented in this encounter Care Teams Dope Weigh Operator Relationship Specialty Start Date End Date Nakul Elias DO [address] [place] [address] PCP - General Family Medicine 02/22/23 documented as of this encounter
--- OUTSIDE RECORDS SUMMARY | 2025-07-09 14:27 | XMS_ITS | Encounter Summary ---
Author Organization [facility] Address [address] [place] [address] Care Team Providers Care Cooker Tender Name Role Phone Nakul Elias DO Primary Care Provider [phone] Encounter Details Date Type Department Care Team (Late Contact Info) Description 07/04/2025 Telephone [facility] FRAZIER [address] [place] [phone] Vero Lowe MA [address] [place] [address] Social History Tobacco Use Types Packs/Day Years Used Date Smoking Tobacco: Never Assessed Comments Unknown Sex and Gender Information Value Date Recorded Sex Assigned at Not on file Legal Sex Female 7:15 PM EDT Gender Identity Not on file Sexual Orientation Not on file documented as of this encounter Miscellaneous Notes * Telephone Encounter - Vero Lowe MA - 07/04/2025 10:58 AM EDT Pt called that she took a test it came back positive. Pt states she is bleeding and in a lot of pain and she has an IUD still inside of her. Unsure how many years w/the IUD. Pt has not beenseen in our office since 11/26/2021 a [facility] patient. Pt was advised to go to the hospital due to her symptoms and get evaluated. And to please call our office to set up a f/up visit. PVU. documented in this encounter Plan of Treatment Upcoming Encounters Date Type Department Care Team (Late st Contact Info) Description 08/13/2025 10:20 AM EDT Procedure Visit [facility]RA[facility] [address] [facility] [place] [place] [phone] Sudhir Brooks DO [address] [facility] [place] [address] documented as of this encounter Visit Diagnoses Not on filedocumented in this encounter Care Teams Cooker Tender Relationship Specialty Start Date End Date Nakul Elias DO [address] [facility] [address] [place] [address] PCP - General Family Medicine 02/22/23 documented as of this encounter
--- OUTSIDE RECORDS SUMMARY | 2025-07-09 14:27 | XMS_ITS | Encounter Summary ---
Author Organization [facility] Address [address] [place] [address] Care Team Providers Care Warehouse Loader Name Role Phone Nakul Elias DO Primary Care Provider [phone] Encounter Details Date Type Department Care Team (Late st Contact Info) Description 07/08/2025 Telephone [facility] [address] [place] [address] Sudhir Brooks DO [address] [place], [facility] Social History Tobacco Use Types Packs/Day Years Used Date Smoking Tobacco: Never Assessed Comments Unknown Sex and Gender Information Value Date Recorded Sex Assigned at Not on file Legal Sex Female 7:15 PM EDT Gender Identity Not on file Sexual Orientation Not on file documented as of this encounter Miscellaneous Notes * Telephone Encounter - Chichi Bhatia LPN - 07/08/2025 4:52 PM EDT Patient was called with the results and she was advised this was not a viable and that ifshe is wanting the IUD out then we can schedule her per for removal tomorrow. Patient was transferred to clerical to schedule this. Patient asking how numbers can do this and she was advised we see this often and sometimes the hormones are there and the does not stay or she could have have a miscarriage. Patient transferred to clerical to schedule. * Telephone Encounter - Chichi Bhatia LPN - 07/08/2025 11:02 AM EDT Patient call was returned and she was advised that we will have her repeat HCG level today it does not look like a so we will do this and she will be able to leave the IUD in place unless trying to conceive and if so then we can schedule for the removal. Patient is asking why we are not taking the IUD out and that she does not understand with being in the pain that she is. Patient was reassured we are trying to see where these levels are before proceeding and she would like to get this out anyway. Patient was advised if she can have the labs drawn and get the results we can then schedule for the IUD removal and she would be transferred to clerical but she hung up before being ableto be transferred. Orders sent to [facility]. * Telephone Encounter - Chichi Bhatia LPN - 07/08/2025 9:55 AM EDT I was calling to find out the results of my blood work that I got done over the weekend at the hospital. I just calling to see what is going on. And when I can get my control out, you can call me back [phone]. Thank you. Patient call was returned and she was advised that we would have to get these reports from the Hospital and verified which one she went to and she was advised would show to provider and would return her call. PVU documented in this encounter Plan of Treatment Upcoming Encounters Date Type Department Care Team (Late st Contact Info) Description 08/13/2025 10:20 AM EDT Procedure Visit [facility] [address] [place] [address] Sudhir Brooks DO [address] [place] [address] Scheduled Orders Name Type Priority Associated Diagnoses Orde r Schedule hCG, quantitative, Lab Routine Positive urine test ([facility]) 6 Occurrences starting 07/08/2025 until 07/08/2026 documented as of this encounter Visit Diagnoses Diagnosis Positive urine test ([facility]) documented in this encounter Care Teams Warehouse Loader Relationship Specialty Start Date End Date Nakul Elias DO [address] [facility] [address] [place] [address] PCP - General Family Medicine 02/22/23 documented as of this encounter
--- OUTSIDE RECORDS SUMMARY | 2025-07-09 14:27 | XMS_ITS | Encounter Summary ---
Author Organization [facility] Address [address] [facility] [place] [address] Care Team Providers Care Billing And Insurance Coordinator Name Role Phone Nakul Elias DO Primary Care Provider Encounter Details Date Type Department Care Team (Late st Contact Info) Description 07/08/2025 Clinisync Result Encounter [facility] External Department Unsolicited Sudhir Brooks [address] [place] [id number] Social History Tobacco Use Types Packs/Day Years [...] Description 08/13/2025 10:20 AM EDT Procedure Visit [facility] [address] [place] [phone] Sudhir Brooks [address] [place], [facility] documented as of this encounter Procedures Procedure Name Priority Date/Time Associated Diagnosis Comments [facility] PREG QUANT HCG Routine 07/08/2025 1: 10 PM EDT documented in this encounter Results * [facility] PREG QUANT HCG (07/08/2025 1:10 PM EDT) HCG QUANTITATIVE 90 mIU/mL [facility] Comment: 5-50 0.2-1 WEEK 50-500 1-2 WEEKS 100-5,000 2-3 WEEKS 500-10,000 3-4 WEEKS 1,000-50,000 4-5 WEEKS 10,000-100,000 5-6 WEEKS 15,000-200,000 6-8 WEEKS 10,000-100,000 2-3 MONTHS 07/08/2025 1:10 PM EDT 07/08/2025 1:11 PM EDT Narrative CLINISYNC - 07/08/2025 1:59 PM EDT Sudhir Cecilia DO [facility] Final [facility] documented in this encounter Visit Diagnoses Not on filedocumented in this encounter Care Teams Billing And Insurance Coordinator Relationship Specialty Start Date End Date Nakul Elias DO [address] [facility] [address] [place] [address] PCP - General Family Medicine 02/22/23 documented as of this encounter
--- OUTSIDE RECORDS SUMMARY | 2025-07-09 14:27 | XMS_ITS | Clinical Summary ---
Author Organization [facility] Address [address] [facility] [place] [address] Care Team Providers Care Marine Reporter Name Role Phone Nakul Elias Primary Care Provider [phone] Allergies No known active allergies Medications VIT-FE FUMARATE-FA PO Take 1 tablet by mouth Daily Active acetaminophen (Tylenol) 500 MG tablet Take 1,000 mg by mouth every 6 (six) hours if needed Active Active Problems Problem Noted Date Diagnosed Date Encounter for IUD removal 07/09/2025 Comments Yes Encounters Date Type Department Care Team Description 07/09/2025 1:10 PM EDT Procedure Visit [facility] [place] [address] Sudhir Brooks DO Encounter for IUD removal; Missed menses; Positive urine test ([facility]) 07/08/2025 Abstract [facility] [place] [address] Sudhir Brooks DO 07/08/2025 Clinisync Result Encounter [facility] External Department Unsolicited Sudhir Brooks DO 07/08/2025 Telephone [facility] [place] [address] Sudhir Brooks DO 07/04/2025 Telephone [facility] [place] [address] Vero Lowe MA from Last 3 Months Social History Tobacco Use Types Packs/Day Years Used Date Smoking Tobacco: Never Assessed Comments Yes Sex and Gender Information Value Date Recorded Sex Assigned at Not on file Legal Sex Female 7:15 PM EDT Gender Identity Not on file Sexual Orientation Not on file Last Filed Vital Signs Vital Sign Reading Time Taken Comments Blood Pressure 116/70 07/09/2025 1:34 PM EDT Pulse - - Temperature - - Respiratory Rate - - Oxygen Saturation - - Inhaled Oxygen Concentration - - Weight 82 kg (180 lb 12.8 oz) 07/09/2025 1:34 PM EDT Height 170.2 cm (5' 7 ) 05/16/2018 12:00 PM EDT Body Mass Index 28.32 05/16/2018 12:00 PM EDT Plan of Treatment Upcoming Encounters Date Type Department Care Team (Late st Contact Info) Description 08/13/2025 10:20 AM EDT Procedure Visit [facility] [address] [place] [address] Sudhir Brooks DO [address] [facility] [place] [address] Health Maintenance Due Date Last Done Comments Pap Smear 02/03/2009 Cervical Cancer Screening 02/03/2018 HPV/Cotest 02/03/2018 Influenza Vaccine (#1) 2025 Procedures Procedure Name Priority Date/Time Associated Diagnosis Comments IUD REMOVAL Routine 07/09/2025 1:52 PM EDT Encounter for IUD removal [facility] PREG QUANT HCG Routine 07/08/2025 1: 10 PM EDT from Last 3 Months Results * IUD REMOVAL (07/09/2025 1:52 PM [...] to schedule for bilateral salpingectomy. us Sudhir Cecilia DO IN CLINIC/BEDSIDE ORDERABLES Fin al Result * [facility] PREG QUANT HCG (07/08/2025 1:10 PM EDT) HCG QUANTITATIVE 90 mIU/mL [facility] Comment: 5-50 0.2-1 WEEK 50-500 1-2 WEEKS 100-5,000 2-3 WEEKS 500-10,000 3-4 WEEKS 1,000-50,000 4-5 WEEKS 10,000-100,000 5-6 WEEKS 15,000-200,000 6-8 WEEKS 10,000-100,000 2-3 MONTHS 07/08/2025 1:10 PM EDT 07/08/2025 1:11 PM EDT Narrative CLINISYNC - 07/08/2025 1:59 PM EDT us Sudhir Cecilia DO CLINISYNC Final Result CLINISYNC [facility] from Last 3 Months Insurance Member Subscriber Plan / Payer (Ef fective 2023-Present) Name:Sofia Dennison Relation to Subscriber:Spouse Name:Jorje Dennison Date of :1982 Address: [address] [place] [address] Payer ID:Not on file Type:Not on file Address: [facility] [address] [place] [id number] Care Teams Marine Reporter Relationship Specialty Start Date End Date Nakul Elias DO [address] [place] [id number] PCP - General Family Medicine 02/22/23
--- NOTE | 2025-07-09 14:29 | US_ITS ---
The [address] [address] Patient Name: HARSH OLIVARES MRN: [id number] date: 1990 Sex: F Assigned Patient Location: Current Patient Location: US Accession/Order Number: [id number] Exam Date: 07/09/2025 14:32 Report Date: 07/09/2025 15:10 At the request of: LUKE BRNACH DO Procedure: US OB transvaginal OB ultrasound. Reason for exam:Positive test. IUD was removed in office. Possible ectopic . Per technologist, beta hCG is 80. Comparison:None Technique: Transvaginal imaging of the uterus and ovaries were obtained. Findings: No evidence of intrauterine is identified. No measurable fibroid. The right ovary measures 4.9 x 3.6 x 4.9 cm. The left ovary measures 3.6 x 3.1 x 3.5 cm. There appears to be corpus luteum/hemorrhagic cysts involving both ovaries largest measuring 3.8 x 3.3 x 3.9 cm involving the right ovary. No definite adnexal mass is seen. There is questionable small amount of complex free fluid versus reverberation artifact. US/US OB transvaginal Impression: No ultrasound evidence of intrauterine is identified. There appears to be bilateral corpus luteum/hemorrhagic cysts involving both ovaries largest measuring 3.9 cm involving the right ovary. No definite adnexal mass is seen. There is questionable small amount of complex free fluid versus reverberation artifact. Differential considerations includes early IUP or miscarriage. Given the questionable complex free fluid, an ectopic cannot BE excluded. Correlation with beta-hCG trend is recommended . If intervention is not performed, repeat ultrasound is also recommended. Impression dictated by: Ricardo Umanzor Jr., D.O. 07/09/2025 3:10 PM Dictation Location: [place] [address] Electronically authenticated by: [id number] Y Date: 07/09/2025 15:10
--- OUTSIDE RECORDS SUMMARY | 2025-07-09 14:30 | XMS_ITS | CCD ---
Author Organization [facility] Care Team Providers Care Manager Investment Banking Name Role Phone Sarwat Umana Primary Care Provider NATHALY PATTERSON Attending Unavailable MURRAY, SARWAT A Primary Care Unavailable ANTHONY BARBA Attending Unavailable MURRAY, SARWAT A Primary Care Unavailable KARASIK, DR GALLEGOS Attending Unavailable KARASIK, DR GALLEGOS Admitting [facility] Unavailable KARASIK, DR GALLEGOS Consulting Unavailable CECILIA, DR BUTLER Admitting Unavailable CECILIA, DR BUTLER Attending Unavailable CECILIA, DR BUTLER Consulting Unavailable MURRAY, SARWAT Primary Care Unavailable ZIEBER, DR AYDE Sousa Consulting Unavailable KARASIK, DR GALLEGOS Admitting Unavailable KARASIK, DR GALLEGOS Attending Unavailable KARASIK, DR GLALEGOS Consulting Unavailable MURRAY, SARWAT Primary Care Unavailable KARASIK, DR GALLEGOS Admitting Unavailable KARASIK, DR GALLEGOS Attending Unavailable KARASIK, DR GALLEGOS Consulting Unavailable MURRAY, [facility] Primary Care Unavailable KARASIK, DR GALLEGOS Admitting Unavailable REQUEST, DR GARCIA LISTED Primary Care Unavaila ble KARASIK, DR [...] Attending Unavailable KARASIK, DR GALLEGOS Consulting Unavailable SARWAT MURRAY Primary Care Unavailable PRAMOD ELLIOTT Consulting Unavailable NOEL, DR GALLEGOS Procedure Practitioner Unava ilable ISIDROK, DR GALLEGOS Admitting Unavailable SARWAT MURRAY Primary [...] ZIEBER, DR AYDE Sousa Consulting Unavailable REQUEST, NONE LISTED Primary Care Unavaila ble KARASIK, DR GALLEGOS Consulting Unavailable KARASIK, DR GALLEGOS Admitting Unavailable KARASIK, DR GALLEGOS Attending Unavailable Joaquim Osuna Primary Care Physician Chucho Kwon Attending Unavailable Sharath CALIX Attending Unavailable Sharath CALIX Attending Unavailable Nakul Elias DO Primary Care Provider Medications Current Medications Medication Drug Class(es) Dates Sig (Normalized) Sig (Original) acetaminophen 500 mg oral tablet (2 sources) take 2 tablets by mouth every six hours as needed acetaminophen (Tylenol) 500 MG tablet Take 1,000 mg by mouth every 6 (six) hours if needed Active acetaminophen 325 mg / HYDROcodone bitartrate 5 mg oral tablet (1 source) Opioid Agonist Start: 06-17-2017 [place] 325 mg-5 mg oral tablet See Instructions, [...] day(s), # 6 tab(s), Refills(s) 0, Pharmacy: [facility], 170, cm, 10/19/22 16:59:00 EST, Height/Length [...] day(s), # 5 tab(s), Refills(s) 0, Pharmacy: [facility], 170, cm, 10/19/22 16:59:00 EST, Height/Length Dosing, 66, kg, 10/19/22 16:59:00 EST, Weight Dosing Start Date: 10/19/22 Stop Date: 10/24/22 Status: Ordered Vit-Fe Fumarate-FA ( PO) (1 source) take 1 tablet by mouth once daily Vit-Fe Fumarate-FA ( PO) Take 1 tablet by mouth daily 0 Active VIT-FE FUMARATE-FA PO (1 source) take 1 tablet by mouth once daily VIT-FE FUMARATE-FA PO Take 1 tablet by mouth Daily Active Completed/Discontinued Medications Medication Drug Class(es) Dates [...] as acute or chronic] Onset: 10-19-2022 Episodic Contraceptive and procreative management (2 sources) Patient encounter status; Translations: [Encounter for removal of intrauterine contraceptive device] Onset: 07-09-2025 07-09-2025 Episodic Disorders of teeth and jaw (1 [...] sexual mode of transmission] Onset: 12-30-2020 Episodic Menstrual disorders (1 source) Missed period; Translations: [Irregular menstruation, unspecified] 07-09-2025 Chronic Other complications of (4 sources) Decreased movements, third trimester, not applicable or unspecified; Translations: [DECR MOVEMENTS 3RD TRI NA/UNS] Onset: 10-07-2021 Episodic Other female genital disorders (1 source) Other specified noninflammatory disorders of vagina; Translations: [OTH SPEC NONINFLAMMATORY D/O VAGINA] Onset: 10-07-2021 Episodic Other and delivery including normal (10 sources) Encounter for supervision of normal , [...] Test Name Value Interpretation Reference Range Facility IUD Removalon 07-09-2025 Karina Burgess MA 07/09/2025 2:05 PM IUD Removal Date/Time: 07/09/2025 1:52 PM Performed by: Luke Brooks DO Authorized by: Luke Brooks DO Consent: Consent obtained: Written Consent [...] also wanting to schedule for bilateral salpingectomy. [facility] PREG QUANT HCGon 025 HCG QUANTITATIVE 90 mIU/mL [facility] Comment on above: 5-50 0.2-1 WEEK 50-500 1-2 WEEKS 100-5,000 2-3 WEEKS 500-10,000 3-4 WEEKS 1,000-50,000 4-5 WEEKS 10,000-100,000 5-6 WEEKS 15,000-200,000 6-8 WEEKS 10,000-100,000 2-3 MONTHS [facility] ED Note-Physicianon 10-26-19 ED Note-Physician Basic Information [...] cough for her. Reports that he tried gaoe-mjd-dmemfds medications, with no relief of her symptoms. [...] and Complexity of Problems Differential Diagnosis: [] [facility] Data External documents reviewed: [] My EKG interpretation: [] My CT interpretation: [] My X-ray interpretation: Reviewed My Ultrasound interpretation: [] Decision rules/scores evaluated: [] Discussed with: [] Treatment and Disposition ED Course: 32-year-old female reports emergency department chief complaint of cough that is been going since a month ago. Reports that it is not getting better. Reports that she has tried owch-zqe-ktzsvrd medications without much relief of her symptoms. Reports that she is still coughing. Denies any recent antibiotic use. Reports that she has tried cdow-hwr-tepopkf medication without relief. Denies any fevers or [...] antibiotics and medication as prescribed. Continue take dubn-cki-chwsufp medications. Discussed return precautions. Follow-up with your [...] day(s), # 6 tab(s), Refills(s) 0, Pharmacy: [facility], 079 (more content not included)... Normal [facility] Comment on above: Result Comment: Elec tronically Signed By: Tony Hamlin PA-C\.br\Date and Time Signed: 10/19/22 21:25 EST\.br\Electronically Co-Signed By: Chucho Kwon DO\.br\Date and Time Co-Signed: 10/26/22 07:09 EST Coding Summary.on 10-22-2022 Coding Summary. CD:[id number] Gh0bWw+PGhlYWQ+PE1FV ATmW58mwMLwrP0BY6rMR H2IUZHNWOPJME2TZV3eq XW5JTyeF3UqkpRj VoljzLGuNS04DVx1WNQ6 uKtoBYcxsK0gjJDwT4b3 YwQwIZ71eC53WEmyQNLp ShM8KxXpabyvpQMw D2sbRkNtpWZwNds+PHRh YmxlIHdpZHRoPScxMDAl HsBfkFxaVL1gAa7wZVCt LWNvbGxhcHNlOiBj w1gkFMMmROpzPN9gwUhw V8UjxXU1RNEmz3y4Et71 dHI+AFWkFHH3bHlzEAzu q894BiDoj1mbPNI0 yYJdNRsdBPR6B59zl4J0 JWMtNLXqNDN1sHZ2eE4s eWcqdpyzV4UtpKEpTjS7 OHB3wGSlbU1jvRye qikzvB4uDye+T48GTP8H LWOTZO4EQlx4Z6WaXgwo dHI+SN01VJYnVC25gFVk jUBvq3letGp4AoCj ZDGeGKK8uRqgSSzit5Ch YRIgC73nlNNqj2F8KFQo bPglaZJyQsYgdSA5dE7k XIwvoopvc0yhtvei Iurqi6qwcs44dK28L74m XScuTRYbOFE2WKNqLHHa yRefja0xfX7lXo3+IDxj v3rps8fkqAl1VfYo JXHvutUtyErzTFV2r8Fw Fl96P0VqgVvfi1XbItz4 pv24xKYid4V7nND9NJfe ILHyeC3cYMoiPoP3 TYQwOwWeoH11uUJyCTke No7prYfigAoiOM3jDXJh wkddCMJooP9xWCCtbKAh zAwhYN5xFVSmxrgf p033GwTcCDK7WUHucHFp G5VbpB0uExMlSGEfMKVl I8RypZLtOYugD690DDvz LdO2KDWdmtCzB7Qa UGVohGhpBcR4d8F4Do1B k8JcpoeaZLC5IIxtKTYq VmE6LeEgBsB0U3MvGsj0 DWKsfDhyCS2aA8We RPPxbembqcsmzEW6OEGn YLXcfN65dFKsZSjxJm0k l0F0i061WQMnWRCulJ63 Ek0zkFuxNQCxpDMN bM4sdwepd2eeualuUtVc QXOsZMb7ITt2WQNxvNlv TtQbUID5JtJ2WRB2gXUt xV1etMybnavlmO0a Oyc+H34spY7eUBT5KRD4 ndokNKUoisVbGA81PC87 X2NvPuzduHUwbPC+PGRp unSwrBuxVN5gYnNx o0ola9DpGJteX9LdVFNt YWqhBvo3JHKjSAF6wLE9 xX8jVHWzNBzpd5V9iJL1 Z0KpjfQipu8bq6cg TLViAMixY83jqPDyd6T7 JXOolXQ3KIDvnNfnPkCr uT73Apt+UAWxzDwem4Os Ekzse3bvi9bexNn4 IjMwJSIgdmFsaWduPSJ0 n6ViFv28E80iSUlhLXJm KDFbSNDcDPYmhJoojh9h xH2eUu1+PGNvbCB3 lHO6xZ1sGSBnAxR0UKoy O868KsZdwERfLpxew3zc w9bvnIx5IuJmIFVqntTo eEqrJLY0m0AsGk27 R77nSAruTDIhROVsJYKh XDCflRbbsw6clF7jUx6+ IL5in0cily61oM39jCM+ CDAyYVJ8wUxqGLas FRHwlK8dWJrjXjO3REOe YoKmhA00mDZpGTreFm3j vEzdfBrkGP9xRNLnrkwe l201ZsBvt8vmXXEk xQNlQAnpBXN7M07ce0T0 VIJwOLOcQCZ9bYN7sA9f bGlnbjogbGVmdDsgdmVy gUqkTAwxAZhgL587 IHRvcDsnPlBhdGllbnQg RxInJAz3S3PpMum9ZTJk vFrhNE1txSLrCCjvXq5a cEqvxYhsJO1hCOMe vsala836DrWut6hxTPKx mNRqJSfnMMG7Y97di2V0 CSWkWXQwXTS5bCB3jG3t bGlnbjogbGVmdDsg mtIxbFgzVHdvCXfvG138 IHRvcDsnPkJpcnRoIERh aUQ0ME75DK46hENtd7W0 vTR3Q7EwFOLzddst dufitWC9DIHpAHQxzR38 Gd5ggJntDb0uBVSkYPZ1 MCZsyBJgU9UtxG1bQxHx LRUfPVAoI9EfiMDs XLgxH474FLhgApJ2JFIh saUkZ4XvURFsiZemJaQ0 h2J2Lz4YV7S7IT17VV55 pPBpj7Q4hNU4P5Vu UCQqutjqfgvvnLM6NYWu TEUpcZ85Yv3uaMjjNs2a CFSlWCZ4KZSpdHLwJ5Yh cF5aPaNkVCXxNLNm H1UwiXPzGRneQ933RPqz HpZ3KVWgmpOsD8AjMSJl xMytWbY9w9K0Tx5NALp9 QM96EW05uVXht1F1 dQX4L0MqICHhmjlepija vIH1PCWpBCYqlY05Ci7t vBlcYg6pQRQlJTB2PZPq iGFlN6MdrJ8aXlXl PVTgJLNbN9CsmBPwLXnz K188TCytNaH4SKTpsoLc I9FsAPZgqEbsAgJ0p8B6 Hr1TPHRvTP02DXH5 mUD4BY01ED11P0ZnJruu dGFibGU+PHRhYmxlIHdp ZHRoPScxMDAlJyBzdHls UT3xHq4pGNAhOACt zEddgDWhUgQic9yzLUYk TZryFI8xcBlzD7DdlRZ5 WQDvq1n2Wp75B03gF8Yu dXA+BEBomUW2vBK8 eW2mApHrOaC0FDmsY262 PgYbrFRoTeugd1bno4ia iAu2DgU6ZNRpkxOkyYrk JOR2w6DiEv41H98c IHdpZHRoPSIxNSUiIHZh mFcfdu4zrM0kJj9+PGNv qXU6hBS1qG1jCxZxGkL3 IEkfS230ZkVpxQJy Enwef8wvb6famPx4FxDg HCXsuxNbvYbmGFU0i5Hk Xd46L1QaxQoku1FjNfg7 mx96tHRgd0H9fVP5 F4YuGGEthsrrmRYciSmy LX2oVYGdxigjPVWolR2w QEKoC9n2CfFiTgO4SIrj Q1PxecQ0NACmfYAr ABulMDG8N26zy5D3KUSx ITTlMGC4nFL0lN6fiYnm bjogbGVmdDsgdmVydGlj YIfbISzcP466GHZl dTozCEXjxJ1zXIXwfEEt jQrzRZ1mWCNzfllnXjxA UkQsIFNBTUFOVEhBIFI8 L6GxMfk4ROPssZqw VS3rgJYpDXrhOe4kpOjq iCuzZN3mPHJthlylNSCw cQ7nWVLpaJJsmNxiBT1h OFSiqkocj722KlAc VKM5UGXmvDYbS5YryJ0h RiWpCVEpQEDiI3QriHEu CYlnF074XFguCoY6RQMu xeHjF2OrXLRnnSng NbG3c7U4Ln4aNQ5nBL1z EWh3YS70QA72bDCpq1D7 aMK3G5KhYLSvvsqlruac nMH3UPVwGPCncJ56 kAOoQLhpRt9yc0X7w893 IBDbBYNtqC32Tk6ytGld KPJpeQOStY5smgept3ie cjogIzAwMDAwMDt0 DOm4MXPawXhyCqRxYHM5 WsV2CLW7aUFqxK6idEtc kqoweR7gAbz+MzQgWWVh kbO3V7YrHqj6ZUJw jXyiTG3ceWYqZDwwYj8r nHufdUlzCQ5rULCkvymp RLLpuJ0oURVsrFJbjRlk LZ5yBHYjssjgx869 XwZnTBO2OQYqzVEbS1Fy aS5aDzCbZHGnJLLcD4Mm lGCjPBpyW157TMndAtD0 VJOxscDrC1NzNDHy mScqGuS1v5A5Do2VYN5a hRA2G8KwTse5IRLaeIyl AH8iwNSqKDvkAg8hqTqk iZomBD3rHVQicsky APZacF7wTPFcvPZbsAlp XY9xBDQubhrqc187YjRm PZW5XIOegNEgV0IuvA5k QxLdBEBrAEFaN9Nv gCAvPXhmG261SSamIiD4 WVLdzsBcE0JvZLFzgXrg TcY5u0X6Jp2KnIRrX8Ul H3t9G4AiXipomZQ+ YZ42SSXyAY39dBBcuAVe x4slsDx6SxJwSYOnGQL8 kYhnMVtlh3HbLONtM82y aGZbt0M6HLChgRoz wECjUwUybLT8rB4gEFxb unsqw6vgqodxDytyd7xc vf34jZ26F87eZRqkJKUc PSIzMCUiIHZhbGln ki5zgU4wOd9+PGNvbCB3 wCV2dC7wQcMoWiX0HUlm P056EqUrsIBxOojpa6hh v9lbyFg4PdNnYUKg piMlgYqlGOR4o5LfGm26 O81oKQdpOBCbGKNfOENl WDSpdJiefb6ftS8bKz2+ HH5ag3lwfk89wA85 dHI+CKFzBTZ7gAioVGwk AJBuxX1uQPurNuI7GRSw TaAgyB17lKWgHFxpKb1n lNnnaJqsPO7sRRBh dywks185FrRcz1vsCTWz wZDjHFebHZL7L24zf1G7 ZDVrHJAnTSD9iCN4yS2d bGlnbjogbGVmdDsg agYauYanYUghNHpuS764 BTGkkTepPmFudMYoV1es kbSOUB5vTqfkiLC+PHRk NJL0aPkePQrsIJLo cD1tMSXvD5r2IvIqVrO6 BChfH2HfroJ1NVTcdOLa PMSbrGNQxB9ruqaru1vq cjogIzAwMDAwMDt0 EPd8DAIabLuuAuQyVLS9 BsU6YZF9eNPrwI7tkNlv hvtpqJ5aUyr+RklOOjwv dGQ+FVIlQAE1zIlb QRmcCINbvL5wBHAyS7q0 DuSbDfP4TNapS3WyecM6 JQNzaYGkTZLaeYKPyI6q bmppc2bgvmnbYwQb OUFrKSw1YCr8MYWdvNiv CwJcQXS0MkC5PJU6mFHw oO1eoPjuyvcmdD6aXrm+ TVJOOjwvdGQ+PHRk ZHP3yKtjAFvgAKDumE0c UCHwF1n0PxByGtM2LWer O6LzmmR1EJDtdOLbMYHm sDYWrL3umyvki6dq ebrtTqBjLXFgAOg3IGl8 PFUrhEffBxFwFOM8BfM7 BPR9uBGazX4uoCvikpnt hI3dQnv+YHR4JLK0 BH72NE26C3ArWamwyQUb bGU+PHRhYmxlIHdpZHRo QNzrKXWaZbZqbTkbVF4v In3pWBJmFMGlmQmo cHNl (more content not included)... [facility] XR Chest 2 Viewson XR Chest [...] Milton Ochoa M.D. Transcribed by: LACY Technologist: ZAK [facility] Consent for Treatmenton Consent for Treatment [id number] #1.00CD:127 Normal [facility] Discharge Instructionson Discharge Instructions [id number]#1.00CD:127 Normal [facility] ED Clinical Summaryon 2022 ED Clinical Summary [place] [id number] ED Clinical Summary Person Information Name: HARSH ARANGO/[facility] Age: 32 Years : 1990 Sex: Female Language: Mauritian PCP: Joaquim Osuna DO Marital Status: Single Phone: [phone] Visit Id: Visit Reason: Sinus Pain/Congestion; Cough; [...] 10/19/2022 18:40:12 10/19/2022 18:40:12 10/19/2022 18:40:12 ADDRESS: [address] [place] [id number] [facility] DOC NOTES: MEDICAL INFORMATION: Prescriptions Given: New Medications [facility], [address], [place] [id number], [phone] azithromycin (azithromycin 250 mg Tab 5-day Dose Pack (Z-Abe)) 1 Packets By Mouth As Directed for 5 Days. as directed on package labeling. Refills: 0. predniSONE (predniSONE 50 mg Tab) 1 Tablets By Mouth every day for 5 Days. Refills: 0. Medications to Continue with No Changes Other Medications acetaminophen-hydroc odone ([place] 325 mg-5 mg oral tablet) 1-2 tab(s) [...] Acute Bronchitis, Adult; Upper Respiratory Infection, Adult, Qvfr-oc-Etka Follow up: With: Address: When: Joaquim Link Nasir Painter, [address] [facility] [place] [address] [address] ([address] In 3 days 10/22/2022 Comments: Follow-up with your primary care provider in 3 to 5 days. If symptoms worsen, do not improve, or new symptoms arise please report back to emergency department for further evaluation. DIAGNOSIS: Bronchitis Normal [facility] ED Patient Education Noteon 10-19-2022 ED Patient [...] other clear broths. General instructions ? Take hrnx-mla-lamvome and prescription medicines only as told by [...] not have soap and water, use hand supervisor cleaning and annealing. ? Avoid touching your mouth, face, eyes, [...] get better within 7?10 days. ? Take cxhr-tim-hummzbx and prescription medicines only as told by your doctor. This information is not intended to replace advice given to you by your health care provider. Make sure you discuss any questions you have with your health care provider. Document Released: 03/21/2009 Document Revised: 10/11/2019 Document Reviewed: 05/26/2018 [employer] Patient Education ? 2019 [employer]. Pulmonary Medicine Acute Bronchitis, Adult Acute bronchitis [...] fe (more content not included)... Normal [facility] ED Patient Summaryon 023 ED Patient Summary [place] [id number] Patient Discharge Instructions Person Information Name: HARSH ARANGO Age: 32 Years Arrival Date: 10/19/2022 16:52:07 Discharge Diagnosis: Bronchitis Primary Care Physician: Joaquim Osuna DO Provider Information Primary Provider: Chucho Kwon DO Advanced Electrical Project Manager:None The exam and treatment you received in the Emergency Department were for an urgent problem and are not intended as complete care. It is important that you follow up with a doctor, nurse practitioner, or physician?s timber management assistant for ongoing care. If your symptoms become worse or you do not improve as expected and you are unable to reach your usual health care provider, you should return to the Emergency Department. We are available 24 hours a day. HARSH ARANGO has been given the following list of patient education materials, prescriptions and follow-up instructions: Follow-up Instructions: With: Address: When: Joaquim Link Nasir Painter, [address] [facility] [place] [address] [facility] (1) In 3 days 10/22/2022 Comments: Follow-up [...] Acute Bronchitis, Adult; Upper Respiratory Infection, Adult, Hubj-zl-Pcqn A MESSAGE TO ALL PATIENTS REGARDING OPIOIDS PRESCRIPTION OPIOIDS: WHAT YOU NEED TO KNOW Prescription opioids can be used to help relieve ttrrwity-fp-eflfti pain and are often prescribed following a [...] risk (more content not included)... Normal [facility] MICRO OTHER TESTSOrdered By: Tamar Banks on [...] – [place] Man Sero Rapid COVID Antigen ([facility])on 10-19-2022 Rapid COV Int NEG Ctl Pass Normal [facility] Comment on above: Performed By: #### 2 [id number] #### [facility] Laboratory [address] [place] [address] Rapid COV Int POS Ctl Pass Normal Fis her [facility] Comment on above: Performed By: #### 2 [id number] #### [facility] Laboratory [address] [place] [address] SARS-CoV+SARS-CoV-2 (COVID-19) Ag IA.rapid Ql (Resp) Not detected Normal Not Detected [facility] Comment on above: Result Comment: The bettermarksitor? System for Rapid Detection of SARS-CoV-2 is [...] or revoked sooner. Performed By: #### 2 [id number] #### [facility] Laboratory [address] [place] [address] ADMITTED TO INTENSIVE CARE UNIT FOR CONDITION OF INTEREST:FIND:PT: NO Normal [facility] Comment on above: Performed By: #### 2 [id number] #### [facility] Laboratory [address] [place] [address] EMPLOYED IN A HEALTHCARE SETTING:FIND:PT: NO Normal [facility] Comment on above: Performed By: #### 2 [id number] #### [facility] Laboratory [address] [place] [address] FIRST TEST FOR CONDITION OF INTEREST:FIND:PT: NO Normal [facility] Comment on above: Performed By: #### 2 [id number] #### [facility] Laboratory [address] [place] [address] HAS SYMPTOMS RELATED TO CONDITION OF INTEREST:FIND:PT: YES Normal [facility] Comment on above: Performed By: #### 2 [id number] #### [facility] Laboratory [address] [place] [address] HOSPITALIZED FOR CONDITION OF INTEREST:FIND:PT: NO Normal [facility] Comment on above: Performed By: #### 2 [id number] #### [facility] Laboratory [address] [place] [address] STATUS:FIND:PT: NO Normal [facility] Comment on above: Performed By: #### 2 [id number] #### [facility] Laboratory [address] [place] [address] RESIDES IN A CONGREGATE CARE SETTING:FIND:PT: NO Normal [facility] Comment on above: Performed By: #### 2 [id number] #### [facility] Laboratory [address] [place] [address] CBC AUTO DIFFon 10-17-2021 BASO # 0.0 103/ul Normal 0.0-0.1 [facility] Comment on above: Performed By: #### C BC #### [facility] Laboratory [address] [address] [address] Marianne Mojica Basophils/100 WBC (Bld) 0.4 % Normal 0.2-2.0 [facility] Comment on above: Performed By: #### C BC #### [facility] Laboratory [address] [address] [address] Marianne Mojica EO # 0.1 103/ul Normal 0.0-0.7 [facility] Comment on above: Performed By: #### C BC #### [facility] Laboratory [address] [address] [address] Marianne Mojica Eosinophils/100 WBC (Bld) 1.1 % Normal 0.9-7.0 [facility] Comment on above: Performed By: #### C BC #### [facility] Laboratory [address] [place] [address] Dr. Marianne Mojica Erythrocyte distribution width (RBC) [Ratio] 13.2 % Normal 11.0-15.0 [facility] Comment on above: Performed By: #### C BC #### [facility] [address] [place] [address] Dr. Marianne Mojica Hematocrit (Bld) [Volume fraction] 33.5 % Critically low 36.0-48.0 [facility] Comment on above: Performed By: #### C BC #### [facility] [address] [place] [address] Dr. Marianne Mojica Hemoglobin (Bld) [Mass/Vol] 11.1 g/dL Critically low 12.0-16.0 [facility] Comment on above: Performed By: #### C BC #### [facility] [address] [place] [address] Dr. Marianne Mojica IG # 0.05 10e3/ul Critically high 0.00-0.03 [facility] Comment on above: Performed By: #### C BC #### [facility] [address] [address] [address] Marianne Mojica IG % 0.5 % Normal 0.0-0.5 [facility] Comment on above: Performed By: #### C BC #### [facility] [address] [place] [address] [address] Marianne Mojica LYMPH # 2.8 103/ul Normal 1.2-3.8 [facility] Comment on above: Performed By: #### C BC #### [facility] [address] [place] [address] Dr. Marianne Mojica Lymphocytes/100 WBC (Bld) 29.9 % Normal 20.5-60.0 [facility] Comment on above: Performed By: #### C BC #### [facility] [address] [place] [address] Dr. Marianne Mojica MANUAL DIFF REQ NO Normal [facility] Comment on above: Performed By: #### C BC #### [facility] [address] [place] [address] Dr. Marianne Mojica MCH (RBC) [Entitic mass] 31.6 pg Normal 26.7-34.0 [facility] Comment on above: Performed By: #### C BC #### [facility] [address] [place] [address] Dr. Marianne Mojica MCHC (RBC) [Mass/Vol] 33.1 g/dL Normal 29.9-35.2 [facility] Comment on above: Performed By: #### C BC #### [facility] [address] [place] [address] Dr. Marianne Mojica MCV (RBC) [Entitic vol] 95.4 fL Normal 81.0-99.0 [facility] Comment on above: Performed By: #### C BC #### [facility] [address] [place] [address] Dr. Marianne Mojica MONO # 0.7 103/ul Normal 0.3-0.8 [facility] Comment on above: Performed By: #### C BC #### [facility] [address] [place] [address] Dr. Marianne Mojica Monocytes/100 WBC (Bld) 7.3 % Normal 1.7-12.0 [facility] Comment on above: Performed By: #### C BC #### [facility] [address] [place] [address] Dr. Marianne Mojica NEUT # 5.6 103/ul Normal 1.4-6.5 [facility] Comment on above: Performed By: #### C BC #### [facility] [address] [place] [address] Dr. Marianne Mojica Neutrophils/100 WBC (Bld) 60.8 % Normal 43.0-75.0 [facility] Comment on above: Performed By: #### C BC #### [facility] [address] [place] [address] Dr. Marianne Mojica Platelet mean volume (Bld) [Entitic vol] 9.8 fL Normal 9.5-13.5 [facility] Comment on above: Performed By: #### C BC #### [facility] [address] [place] [address] Dr. Marianne Mojica PLT 188 103/ul Normal 150-450 [facility] Comment on above: Performed By: #### C BC #### [facility] [address] [place] [address] Dr. Marianne Mojica RBC 3.51 106/ul Critically low 4.20-5.40 [facility] Comment on above: Performed By: #### C BC #### [facility] [address] [place] [address] Dr. Marianne Mojica WBC 9.2 103/ul Normal 4.0-11.0 [facility] Comment on above: Performed By: #### C BC #### [facility] [address] [place] [address] Dr. Marianne Mojica CBC AUTO DIFFon 10-15-2021 BASO # 0.0 103/ul Normal 0.0-0.1 [facility] Comment on above: Performed By: #### C BC #### [facility] [address] [place] [address] Dr. Marianne Mojica Basophils/100 WBC (Bld) 0.2 % Normal 0.2-2.0 [facility] Comment on above: Performed By: #### C BC #### [facility] [address] [place] [address] Dr. Marianne Mojica EO # 0.1 103/ul Normal 0.0-0.7 [facility] Comment on above: Performed By: #### C BC #### [facility] [facility] [address] [place] [address] Dr. Marianne Mojica Eosinophils/100 WBC (Bld) 0.6 % Critically low 0.9-7.0 [facility] Comment on above: Performed By: #### C BC #### [facility] [address] [place] [address] Dr. Marianne Mojica Erythrocyte distribution width (RBC) [Ratio] 13.2 % Normal 11.0-15.0 [facility] Comment on above: Performed By: #### C BC #### [facility] [address] [place] [address] Dr. Marianne Mojica Hematocrit (Bld) [Volume fraction] 37.2 % Normal 36.0-48.0 [facility] Comment on above: Performed By: #### C BC #### [facility] [address] [place] [address] Dr. Marianne Mojica Hemoglobin (Bld) [Mass/Vol] 12.2 g/dL Normal 12.0-16.0 [facility] Comment on above: Performed By: #### C BC #### [facility] [address] [place] [address] Dr. Marianne Mojica IG # 0.04 10e3/ul Critically high 0.00-0.03 [facility] Comment on above: Performed By: #### C BC #### [facility] [address] [place] [address] Dr. Marianne Mojica IG % 0.4 % Normal 0.0-0.5 [facility] Comment on above: Performed By: #### C BC #### [facility] [address] [place] [address] Dr. Marianne Mojica LYMPH # 2.6 103/ul Normal 1.2-3.8 [facility] Comment on above: Performed By: #### C BC #### [facility] [address] [place] [address] Dr. Marianne Mojica Lymphocytes/100 WBC (Bld) 27.0 % Normal 20.5-60.0 [facility] Comment on above: Performed By: #### C BC #### [facility] [address] [place] [address] Dr. Marianne Mojica MANUAL DIFF REQ NO Normal [facility] Comment on above: Performed By: #### C BC #### [facility] [address] [place] [address] Dr. Marianne Mojica MCH (RBC) [Entitic mass] 31.1 pg Normal 26.7-34.0 [facility] Comment on above: Performed By: #### C BC #### [facility] [address] [place] [address] Dr. Marianne Mojica MCHC (RBC) [Mass/Vol] 32.8 g/dL Normal 29.9-35.2 [facility] Comment on above: Performed By: #### C BC #### [facility] [address] [place] [address] Dr. Marianne Mojica MCV (RBC) [Entitic vol] 94.9 fL Normal 81.0-99.0 [facility] Comment on above: Performed By: #### C BC #### [facility] [address] [place] [address] Dr. Marianne Mojica MONO # 0.8 103/ul Normal 0.3-0.8 [facility] Comment on above: Performed By: #### C BC #### [facility] [address] [place] [address] Dr. Marianne Mojica Monocytes/100 WBC (Bld) 7.8 % Normal 1.7-12.0 [facility] Comment on above: Performed By: #### C BC #### [facility] [address] [place] [address] Dr. Marianne Mojica NEUT # 6.2 103/ul Normal 1.4-6.5 [facility] Comment on above: Performed By: #### C BC #### [facility] [address] [place] [address] Dr. Marianne Mojica Neutrophils/100 WBC (Bld) 64.0 % Normal 43.0-75.0 [facility] Comment on above: Performed By: #### C BC #### [facility] [address] [place] [address] Dr. Marianne Mojica Platelet mean volume (Bld) [Entitic vol] 10.5 fL Normal 9.5-13.5 [facility] Comment on above: Performed By: #### C BC #### [facility] [address] [place] [address] Dr. Marianne Mojica PLT 210 103/ul Normal 150-450 [facility] Comment on above: Performed By: #### C BC #### [facility] [address] [place] [address] Dr. Marianne Mojica RBC 3.92 106/ul Critically low 4.20-5.40 [facility] Comment on above: Performed By: #### C BC #### [facility] [address] [place] [address] Dr. Marianne Mojica WBC 9.7 103/ul Normal 4.0-11.0 [facility] Comment on above: Performed By: #### C BC #### [facility] [address] [place] [address] Dr. Marianne Mojica Covid-19 PCR ([facility])on 09-18 SARS-CoV-2 (COVID-19) RNA VIRA+probe Ql (Unsp spec) Not detected Normal NOT DETECTED [facility] Comment on above: Result [...] for this test is supported by the [place] of Health and Human Service's declaration that [...] used). Performed By: #### R PRQ #### [facility] [address] [place] [address] Carlos Della DRUG SCREEN RAPID (URINE)on 10-15-2021 AMP Negative Normal NEGATIVE [facility] Comment on above: Performed By: #### R PRQ #### [facility] [address] [place] [address] [facility] Negative Normal NEGATIVE [facility] Comment on above: Performed By: #### R PRQ #### [facility] [address] [place] [address] BUP Negative Normal NEGATIVE [facility] Comment on above: Performed By: #### R PRQ #### [facility] [address] [place], [place] [address] BZO Negative Normal NEGATIVE [facility] Comment on above: Performed By: #### R PRQ #### [facility] [address] [place], [place] [address] BREE Negative Normal NEGATIVE [facility] Comment on above: Performed By: #### R PRQ #### [facility] [address] [place] [address] CUT-OFFS SEE BELOW Normal [facility] Comment on above: Result [...] ng/mL Performed By: #### R PRQ #### [facility] [address] [place] [address] Carlos Della DRUG CUT HEADER DRUG CLASS TEST SYSTEM CUT-OFF CONCENTRATIONS ARE FOLLOWS: Normal [facility] Comment on above: Performed By: #### R PRQ #### [facility] [address] [place] [address] Carlos Della mAMP Negative Normal NEGATIVE [facility] Comment on above: Performed By: #### R PRQ #### [facility] [address] [address] Carlos Della MTD Negative Normal NEGATIVE [facility] Comment on above: Performed By: #### R PRQ #### [facility] [address] [place] [address] Carlos Della OPI Negative Normal NEGATIVE [facility] Comment on above: Performed By: #### R PRQ #### [facility] [address] [place] [address] Carlos Della OXY Negative Normal NEGATIVE [facility] Comment on above: Performed By: #### R PRQ #### [facility] [address] [place] [address] Carlos Della PCP Negative Normal NEGATIVE [facility] Comment on above: Performed By: #### R PRQ #### [facility] [address] [place] [address] Carlos Della PPX Negative Normal NEGATIVE [facility] Comment on above: Performed By: #### R PRQ #### [facility] [address] [place] [address] Carlos Delal TCA Negative Normal NEGATIVE [facility] Comment on above: Performed By: #### R PRQ #### [facility] [address] [place] [address] Carlos Della THC Negative Normal NEGATIVE [facility] Comment on above: Performed By: #### R PRQ #### [facility] [address] [place] [address] Carlos Della TYPE AND SCREENon 10-15-2021 TYPE AND SCREEN Negative Normal [facility] Comment on above: Performed By: #### R PRQ #### [facility] [address] [address] Carlos Hull US PREG BIOPHY W NON [...] AYDE MIN Date: 2021-10-07 13:52 Normal [facility] CHLAMYDIA/GONOCOCCUS VIRA ( AB/URINE/PAPon 10-06-2021 Chlamydia trachomatis, VIRA Negative Normal Negative [facility] Comment on above: Performed By: #### C T/NGNA #### [facility] [address] [address] [address] Marianne Mojica Neisseria gonorrhoeae, VIRA Negative Normal Negative [facility] Comment on above: Performed By: #### C T/NGNA #### [facility] [address] [address] [address] Marianne Mojica VAGINITIS/VAGINOSIS DNA PROB Travon 10-04-2021 Tory species Negative Normal Negative [facility] Comment on above: Performed By: #### R UBIGG #### [facility] [address] [address] Carlos Hull Gardnerella vaginalis Negative Normal Negative [facility] Comment on above: Performed By: #### R UBIGG #### [facility] [address] [address] Carlos Hull Trichomonas vaginalis Negative Normal Negative [facility] Comment on above: Performed By: #### R UBIGG #### [facility] [address] [place] [address] Carlos Hull GROUP B STREP CULTUREon 09-16 S. agalactiae Ag Ql (Unsp spec) Culture Observations: NEGATIVE FOR GROUP B STREPTOCOCCUS. Normal [facility] Comment on above: Performed By: #### G BSCX #### [facility] [address] [address] [address] Marianne Mojica US PREG PLACENTAon US [...] AYDE MIN Date: 2021-07-29 12:05 Normal [facility] GLUCOSE - 1HRon 07-11-2021 Glucose [Mass/Vol] 71 mg/dL Critically low 74-[address] [facility] Comment on above: Performed By: #### R UBIGG #### [facility] [address] [place] [address] Carlos Della HEMOGRAM AND PLATELon 2020 Hematocrit (Bld) [Volume fraction] 36.2 % Normal 36.0-48.0 [facility] Comment on above: Performed By: #### R UBIGG #### [facility] [address] [address] Carlos Della Hemoglobin (Bld) [Mass/Vol] 11.8 g/dL Critically low 12.0-16.0 [facility] Comment on above: Performed By: #### R UBIGG #### [facility] [address] [place] [address] Carlos Della MCH (RBC) [Entitic mass] 31.4 pg Normal 26.7-34.0 [facility] Comment on above: Performed By: #### R UBIGG #### [facility] [address] [place] [address] Carlos Della MCHC (RBC) [Mass/Vol] 32.6 g/dL Normal 29.9-35.2 [facility] Comment on above: Performed By: #### R UBIGG #### [facility] [address] [place], [place] [address] Carlos Hull MCV (RBC) [Entitic vol] 96.3 fL Normal 81.0-99.0 [facility] Comment on above: Performed By: #### R UBIGG #### [facility] [address] [place], [place] [address] Carlos Wicken PLT 234 103/ul Normal 150-450 [facility] Comment on above: Performed By: #### R UBIGG #### [facility] [address] [place], [place] [address] Carlos Hull RBC 3.76 106/ul Critically low 4.20-5.40 [facility] Comment on above: Performed By: #### R UBIGG #### [facility] [address] [place], [place] [address] Carlos Hull WBC 9.1 103/ul Normal 4.0-11.0 [facility] Comment on above: Performed By: #### R UBIGG #### [facility] [address] [place], [place] [address] Carlos Hull US PREG ANATOMY SINGLEon US [...] 59th percentile by ultrasound and expected FL/AC: 0.812325 FL/BPD: 0.451397 HC/AC: 1.737615 GESTATIONAL AGE: Age by EDC: 20 weeks, 0 days NELA by EDC: 10/22/2021 Age by current US: 20 weeks, 0 days NELA by current US: 10/22/2021 IMPRESSION: 1. Single live intrauterine with growth detailed above. 2. Low-lying fundal/posterior placenta. Electronically authenticated by: AYDE MIN Date: 2021-06-04 12:07 Normal [facility] AFP MATERNAL FOR SPINA BIFID Aon 05-21-2021 AFP MoM 0.95 Normal [facility] Comment on above: Performed By: #### A FPMAT #### [facility] [address] [address] Carlosgaurang Hull AFP Value 37.7 ng/mL Normal [facility] Comment on above: Performed By: #### A FPMAT #### [facility] [address] [address] Acrlos Della AFP, Serum for Spina Bifida Report Normal [facility] Comment on above: Performed By: #### A FPMAT #### [facility] [address] [address] Carlos Della Comment Comment Normal [facility] Comment on above: Result Comment: Shekhar Lincoln, Ph.D., [facility] Director . References: Available Upon Request. . Multiples Of Median Cutoffs For AFP Elevations Sommer 2.5 Black 2.8 IDD 2.0 Twins 4.5 Abbreviation Definitions IDD - Insulin Dep Diabetes OSBR - Open Spina Bifida Risk . For further inquiries contact [employer] at [phone]. Performed By: #### A FPMAT #### [facility] [address] [address] Carlos Hull Gest Age Collection Date 17.6 weeks Normal [facility] Comment on above: Performed By: #### A FPMAT #### [facility] [address] [address] Carlos Hull Gestat, Age Based on Ultrasound Normal [facility] Comment on above: Result Comment: 11:0 on 04/02/2021 Recalculations are not recommended when gestational dating by LMP and ultrasound are within 10 days. Performed By: #### A FPMAT #### [facility] [address] [place] [address] Carlosgaurang Hull Insulin Dep Diabetes No Normal [facility] Comment on above: Performed By: #### A FPMAT #### [facility] [address] [address] Carlos Hull Interpretation Comment Normal [facility] Comment on above: Result Comment: Inte [...] Customer Services to discuss available options. The [employer] recommends amniocentesis be offered to women age 35 and older. Performed By: #### A FPMAT #### [facility] [address] [place] [address] Carlos Della [age] Normal [facility] Comment on above: Performed By: #### A FPMAT #### [facility] [address] [place] [address] Carlos Della Multiple Gestation No Normal [facility] Comment on above: Performed By: #### A FPMAT #### [facility] [address] [place] [address] Carlos Hull [place] [id number] [facility] Comment on above: Performed By: #### A FPMAT #### [facility] [address] [place] [address] Carlos Hull PDF . Normal [facility] Comment on above: Performed By: #### A FPMAT #### [facility] [address] [place] [address] Carlos Hull Race Normal [facility] Comment on above: Performed By: #### A FPMAT #### [facility] [address] [place], [place] [address] Carlos Hull Test Results: Negative Normal [facility] Comment on above: Performed By: #### A FPMAT #### [facility] [address] [place], [place] [address] Carlos Hull Cult,Urineon 05-01-2021 Cult,Urine Specimen Description .Random Urine Special Requests NOT REPORTED Culture NO GROWTH Report Status FINAL 05/01/2021 Normal [facility] Comment on above: Performed By: #### U #### [facility] [address], [place] [id number] Label Paster: Sekou Fraser MD [facility] [address] [place] [address] Label Paster: Campos Chandra MD US PREG PLACENTAon US [...] by: YURIY WISE Date: 2021-04-30 23:35 Normal [facility] ABO/RHOrdered By: Nathaly marinelli on 04-30-2021 ABO/Rh Positive [facility] Work Phone: [facility] [employer] Phone: ABO/Rh(D)on 04-30-2021 ABO/Rh(D) Positive Normal [facility] Comment on above: Performed By: #### A [facility] #### [facility] [address] [place] [address] Label Paster: Campos Chandra MD CBC Auto DifferentialOrdered By: Nathaly Patterson on 04-30-2021 Absolute Eos # 0.00 [email or web address] [facility] Work Phone: Absolute Immature Granulocyte NOT REPORTED [employer] Work Phone: Absolute Lymph # 2.70 [employer] [facility] Work Phone: Absolute [place] # 0.50 [employer] [facility] Work Phone: Basophils (Bld) [#/Vol] 0.00 10*3/uL [employer] Work Phone: Basophils/100 WBC (Bld) 0 % 0 - 2 % [employer] Work Phone: Differential Type YES [employer] [facility] Work Phone: Eosinophils/100 WBC (Bld) 0 % 0 - 5 % [employer] Work Phone: Hematocrit (Bld) [Volume fraction] 36.7 % 36 - 46 % [employer] Work Phone: Hemoglobin.gastrointest inal spec 1 Ql (Stl) 12.5 g/dL 12.0 - 16.0 g/dL [employer] Phone: Immature Granulocytes NOT REPORTED 0 % [employer] Work Phone: Lymphocytes/100 WBC (Bld) 30 % 15 - 40 % [employer] Work Phone: MCH (RBC) [Entitic mass] 30.6 pg 26 - 34 pg [employer] Work Phone: MCHC (RBC) [Mass/Vol] 34.2 g/dL 31 - 37 g/dL [employer] Work Phone: MCV (RBC) [Entitic vol] 89.7 fL 80 - 100 fL [employer] Work Phone: Monocytes/100 WBC (Bld) 5 % 4 - 8 % [facility] Work Phone: NRBC Automated NOT REPORTED per 100 WBC [facility] Work Phone: Platelet distribution width (Bld) [Ratio] 12.8 % 12.1 - 15.2 % [facility] Phone: Platelet Estimate NOT REPORTED [facility] Work Phone: Platelet mean volume (Bld) [Entitic vol] NOT REPORTED 6.0 - 12.0 fL [employer] Work Phone: Platelets (Bld) [#/Vol] 271 10*3/uL [facility] Phone: RBC (Bld) [#/Vol] 4.09 10*6/uL 4.0 - 5.2 m/uL [facility] Phone: RBC (Bld) [#/Vol] NOT REPORTED [facility] Work Phone: Segmented neutrophils/100 WBC (Bld) 65 % 47 - 75 % [facility] Work Phone: Segs Absolute 5.70 [facility] Work Phone: WBC (Bld) [#/Vol] 8.9 10*3/uL [facility] Phone: WBC (Bld) [#/Vol] NOT REPORTED [facility] Work Phone: [employer] Work Phone: CBC with Diffon 04-30-2021 Abs. Basophil 0.00 k/uL Normal 0.0-0.2 [facility] Comment on above: Performed By: #### M G, CMPX, CDP #### [facility] [address] [place] [address] Label Paster: Campos Chandra MD Abs.Neutrophil (Seg) 5.70 k/uL Normal 2.5-7.0 [facility] Comment on above: Performed By: #### M G, CMPX, CDP #### [facility] [address] [id number] Label Paster: Campos Chandra MD Auto Diff Performed YES Normal [facility] Comment on above: Performed By: #### M G, CMPX, CDP #### [facility] [address] [id number] Label Paster: Campos Chandra MD Basophils/100 WBC (Bld) 0 % Normal 0-2 [facility] Comment on above: Performed By: #### M Bienvenido, CMPX, CDP #### [facility] [address] [place] [address] Label Paster: Campos Chandra MD Eosinophils (Bld) [#/Vol] 0.00 10*3/uL Normal 0.0-0.4 [facility] Comment on above: Performed By: #### M G, CMPX, CDP #### [facility] [address] [id number] Label Paster: Campos Chandra MD Eosinophils/100 WBC (Bld) 0 % Normal 0-5 [facility] Comment on above: Performed By: #### Jaime Faria, CMPX, CDP #### [facility] [address] [id number] Label Paster: Campos Chandra MD Erythrocyte distribution width (RBC) [Ratio] 12.8 % Normal 12.1-15.2 [facility] Comment on above: Performed By: #### M G, CMPX, CDP #### [facility] [address] [id number] Label Paster: Campos Chandra MD Hematocrit (Bld) [Volume fraction] 36.7 % Normal 36-46 [facility] Comment on above: Performed By: #### M G, CMPX, CDP #### [facility] [address] [place] [address] Label Paster: Campos Chandra MD Hemoglobin (Bld) [Mass/Vol] 12.5 g/dL Normal 12.0-16.0 [facility] Comment on above: Performed By: #### M Bienvenido, CMPX, CDP #### [facility] [address] [place] [address] Label Paster: Campos Chandra MD Lymphocytes (Bld) [#/Vol] 2.70 10*3/uL Normal 1.0-4.8 [facility] Comment on above: Performed By: #### Jaime Faria, CMPX, CDP #### [facility] [address] [place] [address] Label Paster: Campos Chandra MD Lymphocytes/100 WBC (Bld) 30 % Normal 15-40 [facility] Comment on above: Performed By: #### Jaime Faria, CMPX, CDP #### [facility] [address] [place] [address] Label Paster: Campos Chandra MD MCH (RBC) [Entitic mass] 30.6 pg Normal 26-34 [facility] Comment on above: Performed By: #### Jaime Faria CMPX, CDP #### [facility] [address] [place] [address] Label Paster: Campos Chandra MD MCHC (RBC) [Mass/Vol] 34.2 g/dL Normal 31-37 [facility] Comment on above: Performed By: #### M Bienvenido, CMPX, CDP #### [facility] [address] [place] [address] Label Paster: Campos Chandra MD MCV (RBC) [Entitic vol] 89.7 fL Normal 80-100 [facility] Comment on above: Performed By: #### Jaime Faria, CMPX, CDP #### [facility] [address] [place], [place] [id number] Label Paster: Campos Chandra MD Monocytes (Bld) [#/Vol] 0.50 10*3/uL Normal 0.0-1.0 [facility] Comment on above: Performed By: #### M G, CMPX, CDP #### [facility] [address] [place], [place] [id number] Label Paster: Campos Chandra MD Monocytes/100 WBC (Bld) 5 % Normal 4-8 [facility] Comment on above: Performed By: #### M Bienvenido, CMPX, CDP #### [facility] [address] [place], [place] [id number] Label Paster: Campos Chandra MD Neutrophil (Seg) 65 % Normal 47-75 [facility] Comment on above: Performed By: #### Jaime Faria, CMPX, CDP #### [facility] [address] [place], [place] [id number] Label Paster: Campos Chandra MD Platelets (Bld) [#/Vol] 271 10*3/uL Normal 140-450 [facility] Comment on above: Performed By: #### Jaime Faria, CMPX, CDP #### [facility] [address] [place], [place] [id number] Label Paster: Campos Chandra MD RBC (Bld) [#/Vol] 4.09 10*6/uL Normal 4.0-5.2 [facility] Comment on above: Performed By: #### M G, CMPX, CDP #### [facility] [address] [place], [place] [id number] (288) Label Paster: Capmos Chandra MD WBC (Bld) [#/Vol] 8.9 10*3/uL Normal 3.5-11.0 [facility] Comment on above: Performed By: #### M G, CMPX, CDP #### [facility] [address] [place], [place] [id number] Label Paster: Campos Chandra MD Abs.Imm.Granulocyte NOT REPORTED Normal 0.00-0.30 [facility] Comment on above: Performed By: #### M G, CMPX, CDP #### [facility] [address] [place] [address] Label Paster: Campos Chandra MD Immature Granulocyte NOT REPORTED Normal 0 [facility] Comment on above: Performed By: #### M G, CMPX, CDP #### [facility] [address] [place] [address] Label Paster: Campos Chandra MD MPV NOT REPORTED Normal 6.0-12.0 [facility] Comment on above: Performed By: #### M G, CMPX, CDP #### [facility] [address] [place] [address] Label Paster: Campos Chandra MD NRBC Automated NOT REPORTED Normal [facility] Comment on above: Performed By: #### M G, CMPX, CDP #### [facility] [address] [place] [address] Label Paster: Campos Chandra MD Platelet Estimate NOT REPORTED Normal [facility] Comment on above: Performed By: #### M G, CMPX, CDP #### [facility] [address] [place] [address] Label Paster: Campos Chandra MD RBC morphology finding Nom (Bld) NOT REPORTED Normal [facility] Comment on above: Performed By: #### M G, CMPX, CDP #### [facility] [address] [place], [place] [id number] Label Paster: Campos Chandra MD WBC Morphology NOT REPORTED Normal [facility] Comment on above: Performed By: #### M G, CMPX, CDP #### [facility] [address] [place], [place] [id number] Label Paster: Campos Chandra MD Comp Metabolic Pr/rfx MGon 0 - Potassium [Moles/Vol] 3.5 mmol/L Low 3.7-5.3 [facility] Comment on above: Performed By: #### M Bienvenido CMPX, CDP #### [facility] [address] [place], [place] [id number] Label Paster: Campos Chandra MD (cont.) [facility] Comment on above: Result Comment: Aver age GFR for 30-39 years old: 107 mL/min/1.73sq m Chronic Kidney Disease: <60 mL/min/1.73sq m Kidney failure: <15 mL/min/1.73sq m eGFR calculated using average adult body mass. Additional eGFR calculator available at: http://www.DocumentCloud/multiple_crcl_2011.htm Performed By: #### Jaime Faria CMPX, CDP #### [facility] [address] [place], [place] [id number] Label Paster: Campos Chandra MD Albumin [Mass/Vol] 3.8 g/dL Normal 3.5-5.2 [facility] Comment on above: Performed By: #### Jaime Faria CMPX, CDP #### [facility] [address] [place], [place] [id number] Label Paster: Campos Chandra MD Alkaline Phos 56 U/L Normal 35-104 [facility] Comment on above: Performed By: #### M Bienvenido CMPX, CDP #### [facility] [address] [place] [address] Label Paster: Campos Chandra MD ALT [Catalytic activity/Vol] 13 U/L Normal 5-33 [facility] Comment on above: Performed By: #### M Bienvenido, CMPX, CDP #### [facility] [address] [place] [address] Label Paster: Campos Chandra MD Anion gap [Moles/Vol] 10 mmol/L Normal 9-17 [facility] Comment on above: Performed By: #### Jaime Faria CMPX, CDP #### [facility] [address] [place] [address] Label Paster: Campos Chandra MD AST [Catalytic activity/Vol] 16 U/L Normal <32 [facility] Comment on above: Performed By: #### M Bienvendio, CMPX, CDP #### [facility] [address] [place] [address] Label Paster: Campos Chandra MD Bilirubin [Mass/Vol] 0.23 mg/dL Low 0.30-1.20 [facility] Comment on above: Performed By: #### Jaime Faria CMPX, CDP #### [facility] [address] [place] [address] Label Paster: Campos Chandra MD BUN/CRE Ratio 18 Normal 9-20 [facility] Comment on above: Performed By: #### Jaime Faria CMPX, CDP #### [facility] [address] [place], [place] 132[address] Label Paster: Campos Chandra MD Calcium [Mass/Vol] 9.2 mg/dL Normal 8.6-10.4 [facility] Comment on above: Performed By: #### Jaime Faria CMPX, CDP #### [facility] [address] [place] [address] Label Paster: Campos Chandra MD Chloride [Moles/Vol] 105 mmol/L Normal 98-107 [facility] Comment on above: Performed By: #### M Bienvenido CMPX, CDP #### [facility] [address] [place], [place] 1134390 Label Paster: Campos Chandra MD CO2 [Moles/Vol] 23 mmol/L Normal 20-31 [facility] Comment on above: Performed By: #### M G, CMPX, CDP #### [facility] [address] [place], [place] 8427690 Label Paster: Campos Chandra MD Creatinine [Mass/Vol] 0.44 mg/dL Low 0.50-0.90 [facility] Comment on above: Performed By: #### M G, CMPX, CDP #### [facility] [address] [place] [address] Label Paster: Campos Chandra MD GFR, Amer >60 Normal >60 [facility] Comment on above: Performed By: #### M Bienvenido, CMPX, CDP #### [facility] [address] [place], [place] [id number] Label Paster: Campos Chandra MD GFR,non Amer >60 Normal >60 [facility] Comment on above: Performed By: #### M Bienvenido, CMPX, CDP #### [facility] [address] [place] [address] Label Paster: Campos Chandra MD Glucose [Mass/Vol] 90 mg/dL Normal 70-99 [facility] Comment on above: Performed By: #### M Bienvenido, CMPX, CDP #### [facility] [address] [place], [place] [id number] Label Paster: Campos Chandra MD Protein [Mass/Vol] 7.0 g/dL Normal 6.4-8.3 [facility] Comment on above: Performed By: #### M G, CMPX, CDP #### [facility] [address] [place], [place] 1067290 Label Paster: Campos Chandra MD Sodium [Moles/Vol] 138 mmol/L Normal 135-144 [facility] Comment on above: Performed By: #### M G, CMPX, CDP #### [facility] [address] [place], [place] [address]046[address] Label Paster: Campos Chandra MD Urea nitrogen [Mass/Vol] 8 mg/dL Normal 6-20 [facility] Comment on above: Performed By: #### M G, CMPX, CDP #### [facility] [address] [place], [place] [address] Label Paster: Campos Chandra MD Albumin/Glob Ratio NOT REPORTED Normal 1.0-2.5 [facility] Comment on above: Performed By: #### M G, CMPX, CDP #### [facility] [address] [place], [place] [address] Label Paster: Campos Chandra MD Staging: NOT REPORTED Normal [facility] Comment on above: Performed By: #### M G, CMPX, CDP #### [facility] [address] [place] [address] Label Paster: Campos Chandra MD Comprehensive Metabolic Pane l w/ Reflex to MGOrdered By: Nathaly Patterson on 04-30-2021 Albumin [Mass/Vol] 3.8 g/dL 3.5 - 5.2 g/dL [employer] Phone: Albumin/Globulin Ratio NOT REPORTED [employer] Phone: ALP (Bld) [Catalytic activity/Vol] 56 U/L 35 - 104 U/L [employer] Phone: ALT [Catalytic activity/Vol] 13 U/L 5 - 33 U/L [employer] Phone: Anion gap [Moles/Vol] 10 mmol/L 9 - 17 mmol/L [employer] Phone: AST [Catalytic activity/Vol] 16 U/L <32 [employer] Phone: Bilirubin [Mass/Vol] 0.23 mg/dL Low 0.30 - 1.20 mg/dL [employer] Phone: Calcium [Mass/Vol] 9.2 mg/dL 8.6 - 10. 4 mg/dL [employer] Phone: Chloride [Moles/Vol] 105 mmol/L 98 - 10 7 mmol/L [employer] Phone: CO2 [Moles/Vol] 23 mmol/L 20 - 31 mmol/L [employer] Phone: Creatinine [Mass/Vol] 0.44 mg/dL Low 0.50 - 0.90 mg/dL [employer] Phone: Free PSA/Total PSA [Mass fraction] 7.0 g/dL 6.4 - 8.3 g/dL [employer] Phone: GFR >60 >60 mL/min [employer] Phone: GFR Non- >60 >60 mL/min [employer] Phone: GFR/1.73 sq M.predicted MDRD (S/P/Bld) [Vol rate/Area] [employer] Phone: Comment on above: Average GFR for 30-3 9 years old: 107 mL/min/1.73sq m Chronic Kidney Disease: <60 mL/min/1.73sq m Kidney failure: <15 mL/min/1.73sq m eGFR calculated using average adult body mass. Additional eGFR calculator available at: http://www.[employer].OurCrowd/multiple_crcl_2012.htm GFR/1.73 sq M.predicted MDRD (S/P/Bld) [Vol rate/Area] NOT REPORTED [employer] Phone: Glucose [Mass/Vol] 90 mg/dL 70 - 99 mg/dL [employer] Phone: Interpretation and review of laboratory results Abnormal [employer] Phone: Potassium [Moles/Vol] 3.5 mmol/L Low 3.7 - 5.3 mmol/L [employer] Phone: Sodium [Moles/Vol] 138 mmol/L 135 - 144 mmol/L [facility] [employer] Phone: Urea nitrogen (BldV) [Mass/Vol] 8 mg/dL 6 - 20 mg/dL [facility] Phone: Urea nitrogen/Creatinine (Bld) [Mass ratio] 18 [facility] Phone: [facility] Phone: Drug Scr, Abuse, Uron 2020 Amphetamine(s),Ur Negative Normal NEG [facility] Comment on above: Result Comment: (Positive cutoff 500 ng/mL) Performed By: #### U MICAO, UA, DIOGENES #### [facility] [address] [place] [address] Label Paster: Campos Chandra MD Barbiturate(s),Ur Negative Normal NEG [facility] Comment on above: Result Comment: (Positive cutoff 200 ng/mL) Performed By: #### U MICAO, UA, DIOGENES #### [facility] [address] [place] [address] Label Paster: Campos Chandra MD Benzodiazepine(s) Negative Normal NEG [facility] Comment on above: Result Comment: (Positive cutoff 150 ng/mL) Performed By: #### U MICAO, UA, DIOGENES #### [facility] [address] [place] [id number] Label Paster: Campos Chandra MD Cannabinoid(s),Ur Negative Normal NEG [facility] Comment on above: Result Comment: (Positive cutoff 50 ng/mL) Performed By: #### U MICAO, UA, DIOGENES #### [facility] [address] [place], [place] [id number] Label Paster: Campos Chandra MD Cocaine Metabolite Negative Normal NEG [facility] Comment on above: Result Comment: (Positive cutoff 150 ng/mL) Performed By: #### U MICAO, UA, DIOGENES #### [facility] [address] [place], [place] [address] Label Paster: Campos Chandra MD Methadone Ql (U) Negative Normal NEG [facility] Comment on above: Result Comment: (Positive cutoff 200 ng/mL) Performed By: #### U MICAO, UA, DIOGENES #### [facility] [address] [place], [place] [id number] Label Paster: Campos Chandra MD Methamphetamine, Ur Negative Normal NEG [facility] Comment on above: Result Comment: (Positive cutoff 500 ng/mL) Performed By: #### U MICAO, UA, DIOGENES #### [facility] [address] [place], [place] [address] Label Paster: Campos Chandra MD Opiate(s), Ur Negative Normal NEG [facility] Comment on above: Result Comment: (Positive cutoff 100 ng/mL) Performed By: #### U MICAO, UA, DIOGENES #### [facility] [address] [place], [place] [address] Label Paster: Campos Chandra MD Oxycodone, Urine Negative Normal NEG [facility] Comment on above: Result Comment: (Positive cutoff 100 ng/mL) Performed By: #### U MICAO, UA, DIOGENES #### [facility] [address] [place], [place] [address] Label Paster: Campos Chandra MD Phencyclidine, Ur Negative Normal NEG [facility] Comment on above: Result Comment: (Positive cutoff 25 ng/mL) Performed By: #### U MICAO, UA, DIOGENES #### [facility] [address] [place], [place] [address] Label Paster: Campos Chandra MD Propoxyphene,Urine Negative Normal NEG [facility] Comment on above: Result Comment: (Positive cutoff 300 ng/mL) Performed By: #### U MICAO, UA, DIOGENES #### [facility] [address] [place], [place] [id number] Label Paster: Campos Chandra MD Tricyclic antidepressants Screen Ql (U) Negative Normal NEG [facility] Comment on above: Result Comment: (Positive cutoff 300 ng/mL) Drug screen results are to be used for medical purposes only. All positive results are unconfirmed. Testing for employment or legal uses should be sent to a reference laboratory for confirmation. Performed By: #### U MICAO, UA, DIOGENES #### [facility] [address] [place] [address] Label Paster: Campos Chandra MD Buprenorphrine, Ur NOT REPORTED Normal NEG [facility] Comment on above: Performed By: #### U MICAO, UA, DIOGENES #### [facility] [address] [place], [place] 3256[address] Label Paster: Campos Chandra MD Interpretive Info NOT REPORTED Normal [facility] Comment on above: Performed By: #### U MICAO, UA, DIOGENES #### [facility] [address] [place], [place] [address] Label Paster: Campos Chandra MD MDMA, Urine NOT REPORTED Normal NEG [facility] Comment on above: Performed By: #### U MICAO, UA, DIOGENES #### [facility] [address] [place], [place] [address] Label Paster: Campos Chandra MD Drug screen multi urineOrder ed By: Nathaly Patterson on 04-30-2021 Amphetamine Screen, Ur Negative NEGATIVE [facility] Work Phone: Comment on above: (Positive cutoff 500 ng/mL) Barbiturate Screen, Ur Negative NEGATIVE [facility] Work Phone: Comment on above: (Positive cutoff 200 ng/mL) Benzodiazepine Screen, Urine Negative NEGATIVE [facility] Phone: Comment on above: (Positive cutoff 150 ng/mL) Buprenorphine Urine NOT REPORTED NEGATIVE [facility] Work Phone: Cannabinoid Scrn, Ur Negative NEGATIVE [facility] Work Phone: Comment on above: (Positive cutoff 50 ng/mL) Cocaine Metabolite, Urine Negative NEGATIVE [facility] Work Phone: Comment on above: (Positive cutoff 150 ng/mL) MDMA, Urine NOT REPORTED NE[facility]IVE [facility] Work Phone: Methadone Screen, Urine Negative NEGATIVE [facility] Work Phone: Comment on above: (Positive cutoff 200 ng/mL) Methamphetamine, Urine Negative NEGATIVE [facility] Work Phone: Comment on above: (Positive cutoff 500 ng/mL) Opiates, Urine Negative NEGATIVE [facility] Work Phone: Comment on above: (Positive cutoff 100 ng/mL) Oxycodone Screen, Ur Negative NEGATIVE [facility] Work Phone: Comment on above: (Positive cutoff 100 ng/mL) Phencyclidine, Urine Negative NEGATIVE [facility] Work Phone: Comment on above: (Positive cutoff 25 ng/mL) Propoxyphene, Urine Negative NEGATIVE [facility] Work Phone: Comment on above: (Positive cutoff 300 ng/mL) Test Information NOT REPORTED [facility] [employer] Work Phone: Tricyclic Antidepressants, Urine Negative NEGATIVE [facility] Work Phone: Comment on above: (Positive cutoff 300 ng/mL) Drug screen results are to be used for medical purposes only. All positive results are unconfirmed. Testing for employment or legal uses should be sent to a reference laboratory for confirmation. [facility] [employer] Work Phone: HCG, Quanton 04-30-2021 HCG, Quant [id number] IU/L High <5 [facility] Comment on above: Result Comment: Non-preg [...] liver. Performed By: #### B HCG #### [facility] [address] [place] [address] Label Paster: Campos Chandra MD Magnesiumon 04-30-2021 Magnesium [Mass/Vol] 1.8 mg/dL Normal 1.6-2.6 [facility] Comment on above: Performed By: #### M G, CMPX, CDP #### [facility] [address] [place] [address] Label Paster: Campos Chandra MD MagnesiumOrdered By: Nathaly liu on 04-30-2021 Magnesium [Mass/Vol] 1.8 mg/dL 1.6 - 2 .6 mg/dL [facility] Work Phone: [facility] Work Phone: Microscopic UrinalysisOrdere d By: Nathaly Patterson on 04-30-2021 - [facility] Work Phone: Amorphous, UA NOT REPORTED None [facility] Work Phone: Bacteria, UA NOT REPORTED None [facility] Work Phone: Casts UA NOT REPORTED /LPF [facility] Work Phone: Crystals, UA NOT REPORTED None /HPF [facility] Work Phone: Epithelial Cells UA NOT REPORTED /HPF [facility] [employer] Work Phone: Mucus, UA NOT REPORTED None [facility] Work Phone: Other Observations UA NOT REPORTED NOT REQ. M [facility] [employer] Work Phone: RBC, UA LOADED [facility] Work Phone: Renal Epithelial, UA NOT REPORTED 0 /HPF [facility] [employer] Work Phone: Trichomonas, UA NOT REPORTED None [facility] [employer] [facility] Work Phone: WBC, UA 2 TO 5 0 /HPF [employer] Work Phone: Yeast, UA NOT REPORTED None [facility] [employer] Phone: [facility] [employer] Phone: Urinalysis, Routineon 2020 Bilirubin, SemiQt,Ur Negative Normal NEG [facility] Comment on above: Performed By: #### U MICAO, UA, DIOGENES #### [facility] [address] [place] [id number] Label Paster: Campos Chandra MD Blood, Urine 3+ Abnormal NEG [facility] Comment on above: Performed By: #### U MICAO, UA, DIOGENES #### [facility] [address] [place] [id number] Label Paster: Campos Chandra MD Clarity (U) CLOUDY Abnormal CLEAR [facility] Comment on above: Performed By: #### U MICAO, UA, DIOGENES #### [facility] [address] [place] [address] Label Paster: Campos Chandra MD Color (U) YELLOW Normal YEL [facility] Comment on above: Performed By: #### U MICAO, UA, DIOGENES #### [facility] [address] [place], [place] [id number] Label Paster: Campos Chandra MD Comment Normal [facility] Comment on above: Performed By: #### U MICAO, UA, DIOGENES #### [facility] [address] [place], [place] [id number] Label Paster: Campos Chandra MD Glucose Ql (U) Negative Normal NEG [facility] Comment on above: Performed By: #### U MICAO, UA, DIOGENES #### [facility] [address] [place] [address] Label Paster: Campos Chandra MD Ketones Ql (U) Negative Normal NEG [facility] Comment on above: Performed By: #### U MICAO, UA, DIOGENES #### [facility] [address] [place], [place] [id number] Label Paster: Campos Chandra MD Leukocyte esterase Test strip Ql (U) 1+ Abnormal NEG [facility] Comment on above: Performed By: #### U MICAO, UA, DIOGENES #### [facility] [address] [place] [address] Label Paster: Campos Chandra MD Nitrite,Ur Negative Normal NEG [facility] Comment on above: Performed By: #### U MICAO, UA, DIOGENES #### [facility] [address] [place] [address] Label Paster: Campos Chandra MD PH,Ur 5.0 Normal 5.0-8.0 [facility] Comment on above: Performed By: #### U MICAO, UA, DIOGENES #### [facility] [address] [place] [address] Label Paster: Campos Chandra MD Protein Ql (U) 3+ Abnormal NEG [facility] Comment on above: Performed By: #### U MICAO, UA, DIOGENES #### [facility] [address] [place] [id number] Label Paster: Campos Chandra MD Spec. [place],Ur 1.025 Normal 1.005-1.030 [facility] Comment on above: Performed By: #### U MICAO, UA, DIOGENES #### [facility] [address] [place], [place] [id number] Label Paster: Campos Chandra MD Urobilinogen,Ur Normal Normal NORM [facility] Comment on above: Performed By: #### U MICAO, UA, DIOGENES #### [facility] [address] [place] [address] Label Paster: Campos Chandra MD Urinalysis, reflex to micros copicOrdered By: Nathaly Cory on 04-30-2021 Bilirubin Urine Negative NEGATIVE [facility] Work Phone: Color, UA YELLOW YELLOW [employer] Work Phone: Glucose, Ur Negative NEGATIVE [facility] Work Phone: Interpretation and review of laboratory results Abnormal [employer] Work Phone: Ketones Ql (U) Negative NEGATIVE [facility] Work Phone: Leukocyte esterase Test strip Ql (U) 1+ Abnormal NEGATIVE [facility] Phone: Nitrite, Urine Negative NEGATIVE [facility] Work Phone: pH, UA 5.0 [facility] Work Phone: Protein, UA 3+ Abnormal NEGATIVE [facility] Phone: Specific [place], UA 1.025 [employer] Work Phone: Turbidity UA CLOUDY Abnormal CLEAR [employer] Phone: Urinalysis Comments [facility] Phone: Urine Hgb 3+ Abnormal NEGATIVE [facility] Phone: Urobilinogen, Urine Normal Normal [facility] Work Phone: [facility] Work Phone: Urinalysis,Microon 1 ----- Normal [facility] Comment on above: Performed By: #### U MICAO, UA, DIOGENES #### [facility] [address] [place] [address] Label Paster: Campos Chandra MD Urine RBC's LOADED Normal 0-2 [facility] Comment on above: Performed By: #### U MICAO, UA, DIOGENES #### [facility] [address] [place] [address] Label Paster: Campos Chandra MD Urine WBC's 2 TO 5 Normal 0 [facility] Comment on above: Performed By: #### U MICAO, UA, DIOGENES #### [facility] [address] [place] [address] Label Paster: Campos Chandra MD Amorphous sediment LM Ql (Urine sed) NOT REPORTED Normal NONE [facility] Comment on above: Performed By: #### U MICAO, UA, DIOGENES #### [facility] [address] [place] [address] Label Paster: Campos Chandra MD Bacteria NOT REPORTED Normal NONE [facility] Comment on above: Performed By: #### U MICAO, UA, DIOGENES #### [facility] [address] [place] [address] Label Paster: Campos Chandra MD Casts NOT REPORTED Normal [facility] Comment on above: Performed By: #### U MICAO, UA, DIOGENES #### [facility] [address] [place] [address] Label Paster: Campos Chandra MD Crystals LM Nom (Urine sed) NOT REPORTED Normal NONE [facility] Comment on above: Performed By: #### U MICAO, UA, DIOGENES #### [facility] [address] [place] [address] Label Paster: Campos Chandra MD Epithelial cells LM Ql (Urine sed) NOT REPORTED Normal [facility] Comment on above: Performed By: #### U MICAO, UA, DIOGENES #### [facility] [address] [place], [place] [id number] Label Paster: Campos Chandra MD Epithelial, Renal NOT REPORTED Normal 0 [facility] Comment on above: Performed By: #### U MICAO, UA, DIOGENES #### [facility] [address] [place] [address] Label Paster: Campos Chandra MD Mucus Strands NOT REPORTED Normal NONE [facility] Comment on above: Performed By: #### U MICAO, UA, DIOGENES #### [facility] [address] [place] [address] Label Paster: Campos Chandra MD Other Observations NOT REPORTED Normal NREQ [facility] Comment on above: Performed By: #### U MICAO, UA, DIOGENES #### [facility] [address] [place] [address] Label Paster: Campos Chandra MD Trichomonas NOT REPORTED Normal NONE [facility] Comment on above: Performed By: #### U MICAO, UA, DIOGENES #### [facility] [address] [place] [address] Label Paster: Campos Chandra MD Yeast NOT REPORTED Normal NONE [facility] Comment on above: Performed By: #### U MICAO, UA, DIOGENES #### [facility] [address] [place] [address] Label Paster: Campos Chandra MD hCG, quantitative, Ordered By: Nathaly Patterson on 04-30-2021 hCG Quant [id number] High <5 IU/L [facility] Abigail Stewart Phone: Comment on above: Non-preg premeno <=5 Postmeno <=8 Male <=3 If HCG results do not concur with clinical observations, additional testing to confirm results is recommended. Elevated results not associated with may be found in patients with other diseases such as tumors of the germ cells (testis, ovaries, etc.), bladder, pancreas, stomach, lungs, and liver. Interpretation and review of laboratory results Abnormal [employer] [facility] Abigail Stewart Phone: [employer] Phone: RPR QUANTon 04-12-2021 Rapid Plasma Reagin, Quant Non-Reactive Normal NonRea<1:1 [facility] Comment on above: Performed By: #### R PRQ #### [facility] [address] [place] [address] Carlos Hull HEP B SURFACE ANTIGEN SCREEN on 04-11-2021 HBsAg Screen Negative Normal Negative [facility] Comment on above: Performed By: #### R UBIGG #### [facility] [address] [place] [address] Carlos Hull HEPATITIS C VIRUS AB W/ REFL EX QUANTon 04-11-2021 HCV AB <0.1 Normal 0.0-0.9 [facility] Comment on above: Performed By: #### H CVPCRR #### [facility] [address] [place] [address] Carlos Hull Interpretation: Comment Normal [facility] Comment on above: Result Comment: Nega tive Not infected with HCV, unless recent infection is suspected or other evidence exists to indicate HCV infection. Performed By: #### H CVPCRR #### [facility] [address] [place] [address] Carlos Hull HIV 1 AND 2 WITH REFLEXon HIV Screen 4th Generation wRfx Non-Reactive Normal Non Reactive [facility] Comment on above: Performed By: #### R PRQ #### [facility] [address] [place] [address] Carlos Hull RUBELLA AB IGGon 04-11-2021 Rubella Antibodies, IgG 2.95 index Normal Immune >0.99 [facility] Comment on above: Result Comment: Non- immune <0.90 Equivocal 0.90 - 0.99 Immune >0.99 Performed By: #### R UBIGG #### [facility] [address] [place] [address] Carlos Hull CBC AUTO DIFFon 04-10-2021 BASO # 0.0 103/ul Normal 0.0-0.1 [facility] Comment on above: Performed By: #### R UBIGG #### [facility] [address] [place] [address] Carlos Della Basophils/100 WBC (Bld) 0.3 % Normal 0.2-2.0 [facility] Comment on above: Performed By: #### R UBIGG #### [facility] [address] [place] [address] Carlos Della EO # 0.0 103/ul Normal 0.0-0.7 [facility] Comment on above: Performed By: #### R UBIGG #### [facility] [address] [place] [address] Carlos Della Eosinophils/100 WBC (Bld) 0.5 % Critically low 0.9-7.0 [facility] Comment on above: Performed By: #### R UBIGG #### [facility] [address] [place] [address] Carlos Della Erythrocyte distribution width (RBC) [Ratio] 12.3 % Normal 11.0-15.0 [facility] Comment on above: Performed By: #### R UBIGG #### [facility] [address] [place] [address] Carlos Della Hematocrit (Bld) [Volume fraction] 39.2 % Normal 36.0-48.0 [facility] Comment on above: Performed By: #### R UBIGG #### [facility] [address] [place] [address] Carlos Della Hemoglobin (Bld) [Mass/Vol] 13.0 g/dL Normal 12.0-16.0 [facility] Comment on above: Performed By: #### R UBIGG #### [facility] [address] [place] [address] Carlos Della IG # 0.01 10e3/ul Normal 0.00-0.03 [facility] Comment on above: Performed By: #### R UBIGG #### [facility] [address] [place] [address] Carlos Della IG % 0.2 % Normal 0.0-0.5 [facility] Comment on above: Performed By: #### R UBIGG #### [facility] [address] [place], [place] [address] Carlos Della LYMPH # 1.7 103/ul Normal 1.2-3.8 [facility] Comment on above: Performed By: #### R UBIGG #### [facility] [address] [place], [place] [address] Carlos Della Lymphocytes/100 WBC (Bld) 25.5 % Normal 20.5-60.0 [facility] Comment on above: Performed By: #### R UBIGG #### [facility] [address] [place], [place] [address] Carlos Della MANUAL DIFF REQ NO Normal [facility] Comment on above: Performed By: #### R UBIGG #### [facility] [address] [place], [place] [address] Carlos Della MCH (RBC) [Entitic mass] 30.2 pg Normal 26.7-34.0 [facility] Comment on above: Performed By: #### R UBIGG #### [facility] [address] [place], [place] [address] Carlos Della MCHC (RBC) [Mass/Vol] 33.2 g/dL Normal 29.9-35.2 [facility] Comment on above: Performed By: #### R UBIGG #### [facility] [address] [place], [place] [address] Carlos Della MCV (RBC) [Entitic vol] 91.2 fL Normal 81.0-99.0 [facility] Comment on above: Performed By: #### R UBIGG #### [facility] [address] [place] [address] Carlos Della MONO # 0.6 103/ul Normal 0.3-0.8 [facility] Comment on above: Performed By: #### R UBIGG #### [facility] [address] [place] [address] Carlos Della Monocytes/100 WBC (Bld) 8.7 % Normal 1.7-12.0 [facility] Comment on above: Performed By: #### R UBIGG #### [facility] [address] [place] [address] Carlos Hull NEUT # 4.2 103/ul Normal 1.4-6.5 [facility] Comment on above: Performed By: #### R UBIGG #### [facility] [address] [place], [place] [address] Carlos Hull Neutrophils/100 WBC (Bld) 64.8 % Normal 43.0-75.0 [facility] Comment on above: Performed By: #### R UBIGG #### [facility] [address] [place] [address] Carlosgaurang Hull Platelet mean volume (Bld) [Entitic vol] 9.2 fL Critically low 9.5-13.5 [facility] Comment on above: Performed By: #### R UBIGG #### [facility] [address] [place] [address] Carlosgaurang Wicken PLT 246 103/ul Normal 150-450 [facility] Comment on above: Performed By: #### R UBIGG #### [facility] [address] [place] [address] Carlos Della RBC 4.30 106/ul Normal 4.20-5.40 [facility] Comment on above: Performed By: #### R UBIGG #### [facility] [address] [place] [address] Carlos Hull WBC 6.5 103/ul Normal 4.0-11.0 [facility] Comment on above: Performed By: #### R UBIGG #### [facility] [address] [place], [place] [address] Carlos Hull CULTURE URINEon 04-10-2021 CULTURE URINE Culture Observations: NO GROWTH Normal [facility] Comment on above: Performed By: #### R PRQ #### [facility] [address] [place] [address] Carlos Hull GLYCOHEMOGLOBIN A1Con 2020 ADA RECOMMENDATION ADA THERAPEUTIC TARGET 6.0 - 7.0 ACTION SUGGESTED > 7.0 Normal [facility] Comment on above: Performed By: #### R UBIGG #### [facility] [address] [place], [place] [address] Carlos Hull Glucose [Mass/Vol] 94 mg/dL Normal [facility] Comment on above: Performed By: #### R UBIGG #### [facility] [address] [place], [place] [address] Carlos Hull HbA1c (Bld) [Mass fraction] 4.9 % Normal <=6.0 [facility] Comment on above: Performed By: #### R UBIGG #### [facility] [address] [place], [place] [address] Carlos Hull BENJAMIN BOX TEST PT SEND OUTo n 04-10-2021 SENT TO REF LAB 04/10/2021 Normal [facility] Comment on above: Performed By: #### R UBIGG #### [facility] [address] [place] [address] Carlos Della TYPE AND SCREENon 04-10-2021 TYPE AND SCREEN Negative Normal [facility] Comment on above: Performed By: #### T NS #### [facility] [address] [place] [address] aCrlos Hull US PREG TVon 04-02-2021 US PREG [...] by: AYDE MIN Date: 2021-04-02 09:55 Normal [facility] PAP ACOG PANEL 2: 30 to 65on 12-31-2020 . . Normal [facility] Comment on above: Result Comment: Perf ormed at: WB Performed By: #### [id number] #### [facility] [address] [place] [address] Carlos Hull Age Gdln ACOG Testing 30-65 Normal [facility] Comment on above: Performed By: #### [id number] #### [facility] [address] [place] [address] Carlos Hull DIAGNOSIS: Comment Abnormal [facility] Comment on above: Result Comment: EPIT HELIAL CELL ABNORMALITY. LOW GRADE SQUAMOUS INTRAEPITHELIAL LESION (LSIL). PREDOMINANCE OF COCCOBACILLI CONSISTENT WITH SHIFT IN VAGINAL MARA IS PRESENT. Performed at: WB Performed By: #### [id number] #### [facility] [address] [place] [address] Carlos Della Electronically signed by: Comment Normal [facility] Comment on above: Result Comment: Mavis Sharma MD, Pathologist Performed at: WB Performed By: #### [id number] #### [facility] [address] [place] [address] Carlos Della HPV Aptima Positive Abnormal Negative [facility] Comment on above: Result Comment: This nucleic acid amplification test detects fourteen high-risk HPV types (16,18,31,33,35,39,45,51,52,56,58,59,66,68) without differentiation. Performed at: =G Performed By: #### [id number] #### [facility] [address] [place] [address] Carlos Hull Methodology: Comment Normal [facility] Comment on above: Result Comment: This liquid based ThinPrep(R) pap test was screened with the use of an image guided system. Performed at: WB Performed By: #### [id number] #### [facility] [address] [place] [address] Carlos Della Note: Comment Normal [facility] Comment on above: Result Comment: The Pap smear is a screening test designed to aid in the detection of premalignant and malignant conditions of the uterine cervix. It is not a diagnostic procedure and should not be used as the sole means of detecting cervical cancer. Both false-positive and false-negative reports do occur. . Performed at: WB Performed By: #### [id number] #### [facility] [address] [place], [place] [address] Carlos Hull Pathologist Provided ICD10 Comment Normal [facility] Comment on above: Result Comment: R87. 612, R87.5 Performed at: WB Performed By: #### [id number] #### [facility] [address] [place], [place] [address] Carlos Della Performed by: Comment Normal [facility] Comment on above: Result Comment: Roxana Conrad Avionics Engineer (ASCP) Performed at: WB Performed By: #### [id number] #### [facility] [address] [place], [place] [address] Carlosgaurang Hull Recommendation: Comment Abnormal [facility] Comment on above: Result Comment: Sugg est follow up as clinically appropriate. Performed at: WB Performed By: #### [id number] #### [facility] [address] [place] [address] Carlos Hull Specimen adequacy: Comment Normal [facility] Comment on above: Result Comment: Sati sfactory for evaluation. Endocervical and/or squamous metaplastic cells (endocervical component) are present. Performed at: WB Performed By: #### [id number] #### [facility] [address] [place], [place] [address] Carlos Hull Vital Signs Date Time Vital Sign Value Performing Clinician Facility 07-09-2025 13:34-0400 Body mass index (BMI) [Ratio] 28.32 kg/m2 Recognia DO Work Phone: [facility] 07-09-2025 13:34-0400 Body weight 82.01 kg Recognia DO Work Phone: [facility] 07-09-2025 13:34-0400 Diastolic blood pressure 70 mm[Hg] Trellie Work Phone: [facility] 07-09-2025 13:34-0400 Systolic blood pressure 116 mm[Hg] Trellie Work Phone: [facility] 10-19-2022 16:55-0500 Body temperature 98.06 [degF] Chucho Kwon [facility] 10-19-2022 16:55-0500 Diastolic blood pressure 102 mm[Hg] Chucho Kwon [facility] 10-19-2022 16:55-0500 Heart rate 91 /min Chucho Kwon [facility] 10-19-2022 16:55-0500 Respiratory rate 18 /min Chucho Kwon [facility] 10-19-2022 16:55-0500 SaO2% (BldA) [Mass fraction] 98 % Chucho Kwon [facility] 10-19-2022 16:55-0500 Systolic blood pressure 146 mm[Hg] Chucho Kwon [facility] 05-21-2021 00:06-0400 Body weight 75.[address] EL JAIME [facility] Comment on above: Performed By: #### AFPMAT #### [facility] [address] [place] [address] Carlos Wicken 04-30-2021 17:33-0400 Body height 170.2 cm Nathaly Patterson MD Work Phone: [employer] Work Phone: 04-30-2021 17:33-0400 Body mass index (BMI) [Ratio] 25.98 kg/m2 Nathaly Patterson MD Work Phone: [employer] Work Phone: 04-30-2021 17:33-0400 Body temperature 97.9 [degF] Nathaly Patterson MD Work Phone: [employer] Work Phone: 04-30-2021 17:33-0400 Body weight 75.25 kg Nathaly Patterson MD Work Phone: [employer] Work Phone: 04-30-2021 17:33-0400 Diastolic blood pressure 73 mm[Hg] Nathaly Patterson MD Work Phone: [employer] Work Phone: 04-30-2021 17:33-0400 Heart rate 71 /min Nathaly Patterson MD Work Phone: [employer] Work Phone: 04-30-2021 17:33-0400 Respiratory rate 18 /min Nathaly Patterson MD Work Phone: [employer] Work Phone: 04-30-2021 17:33-0400 SaO2% (BldA) [Mass fraction] 100 % Nathaly Patterson MD Work Phone: [employer] Work Phone: 04-30-2021 17:33-0400 Systolic blood pressure 127 mm[Hg] Nathaly Patterson MD Work Phone: [employer] Work Phone: 04-08-2021 20:32-0400 Body temperature 98.2 [degF] Anthony Barba MD Work Phone: [employer] Work Phone: 04-08-2021 20:32-0400 Body weight 76.61 kg Anthony Barba MD Work Phone: [employer] Work Phone: 04-08-2021 20:32-0400 Diastolic blood pressure 76 mm[Hg] Anthony Barba MD Work Phone: [employer] Work Phone: 04-08-2021 20:32-0400 Heart rate 66 /min Anthony Barba MD Work Phone: [employer] Work Phone: 04-08-2021 20:32-0400 Respiratory rate 18 /min Anthony Barba MD Work Phone: [employer] Work Phone: 04-08-2021 20:32-0400 SaO2% (BldA) [Mass fraction] 98 % Anthony Barba MD Work Phone: [employer] Work Phone: 04-08-2021 20:32-0400 Systolic blood pressure 117 mm[Hg] Anthony Barba MD Work Phone: [employer] Work Phone: Encounters Encounter Date Encounter Type Care Provider Facility Start: 07-09-2025 End: 07-09-2025 Office outpatient visit 15 minutes Luke Brooks DO Work Phone: [facility] Comment on above: Encounter for IUD re moval; Missed menses; Positive urine test ([facility]) Start: 07-08-2025 End: 07-08-2025 Clinisync Result Encounter Luke Brooks DO Work Phone: [facility] Unsolicited Start: 07-08-2025 End: 07-08-2025 Clinisync Result Encounter Luke Brooks DO Work Phone: [facility] Unsolicited Start: 04-17-2025 End: 04-17-2025 ambulatory [facility] Start: 06-06-2024 End: 06-06-2024 ambulatory [facility] Start: 10-19-2022 End: 10-19-2022 Emergency department patient visit Chucho Kwon [place] Start: 10-19-2022 End: 10-19-2022 Emergency department patient visit Chucho Kwon [facility] Start: 10-15-2021 End: 10-17-2021 Evaluation and management of inpatient DR EL JAIME Facility:[facility] Start: 10-07-2021 End: 10-07-[address] EL JAIME Facility:[facility] Start: 10-02-2021 End: 10-02-[address] EL JAIME Facility:[facility] Start: 07-29-2021 End: 07-30-[address] LUKE BROOKS Facility:[facility] Start: 07-11-2021 End: 07-12-[address] EL JAIME Facility:[facility] Start: 06-04-2021 End: 06-05-[address] EL JAIME Facility:[facility] Start: 05-18-2021 End: 05-19-[address] EL JAIME Facility:[facility] Start: 04-30-2021 End: 04-30-2021 Emergency department patient visit LOIDA STRUS [facility] Start: 04-30-2021 End: 04-30-2021 Emergency department patient visit Nathaly Patterson MD Work Phone: [facility] ED Comment on above: Vaginal bleeding in (Primary Dx) Start: 04-30-2021 End: 05-01-2021 ambulatory GLEN PACKER Facility:[facility] Start: 04-10-2021 End: 04-11-[address] EL JAIME Facility:[facility] Start: 04-08-2021 End: 04-08-2021 Emergency department patient visit [facility] Start: 04-08-2021 End: 04-08-2021 Emergency department patient visit Anthony Barba MD Work Phone: [facility] ED Comment on above: Dental infection (Pr imary Dx) Start: 04-02-2021 End: 04-03-[address] RADHA HILL Facility:[facility] Start: 12-25-2020 End: 12-25-[address] EL JAIME Facility:[facility] Procedures Date Procedure Procedure Detail Performing Clinician Start: 07-09-2025 Removal intrauterine device iud Luke Cecilia DO Work Phone: Start: 07-08-2025 [facility] PREG QUANT HCG Core y Cecilia DO Work Phone: Start: 10-16-2021 Delivery of Products of Conception, [...] stick/tabl et rgnt auto w/o microscopy Nathaly Pattesron MD Work Phone: Start: 06-17-2017 Removal Chucho Maria te Comment on above: rt wrist mass remova l Plan of Treatment Date Care Activity Detail Author Start: 08-05-2025 End: 08-05-2025 Patient encounter procedure 08/05/2025 1:30 PM EDT Procedure Visit [facility] [address] [place] [address] Luke Brooks DO [address] [place], [place] [id number] [facility] [place] Start: 07-09-2025 End: 10-08-2025 US Pelvis transvaginal US OB transvaginal Imaging Routine Missed menses Positive urine test ([facility]) Expected: 07/09/2025, Expires: 10/08/2025 [facility] Work Phone: Comment on above: Expected: 07/09/2025 , Expires: 10/08/2025 Start: 07-09-2025 End: 07-09-2025 Patient encounter procedure 07/09/2025 1:10 PM EDT Procedure Visit KRISTAL FRAZIER [address] [place] [id number] Luke Brooks, [address] [place] [address] KRISTAL [facility] Start: 06-17-2025 Influenza vaccination Influenza Vacc ine (#1) [facility] Start: 06-17-2021 [facility] Start: 02-03-2018 Screening for malign ant neoplasm of cervix [facility] Start: 02-03-2009 Screening for malign ant neoplasm of cervix Pap Smear [facility] Start: 2000 COVID-19 Vaccine (1) COVID-19 Vaccin e (1) [employer] Phone: End: 04-30-2021 Culture, Urine Culture, Urine Microbiology Routine Once for 1 Occurrences starting 04/30/2021 until 04/30/2021 [employer] Phone: Comment on above: Once for 1 Occurrenc es starting 04/30/2021 until 04/30/2021 Culture, Urine Culture, Urine Microbiology Routine 04/30/2021 6:10 PM EDT [employer] Phone: Payers Date Payer Category Payer [facility] [id number] [id number] 1988 Unknown [id number] 2.16.84 [id number] 1988 Unknown [id number] 2.16.84 [id number] 1988 Unknown [id number] 2.16.84 0.1.819528.3.579.2.593 1988 Unknown [id number] 2.16.84 0.1.222606.3.579.2.593 1988 Unknown [id number] 2.16.84 0.1.049402.3.579.2.593 1988 Unknown [id number] 2.16.84 0.1.469739.3.579.2.593 1988 Unknown [id number] 2.16.84 0.1.674557.3.579.2.593 1988 Unknown [id number] 2.16.84 0.1.473781.3.579.2.593 1988 Unknown [id number] 2.16.84 0.1.235688.3.579.2.593 1988 Unknown [id number] 2.16.84 0.1.561834.3.579.2.593 1988 Unknown [id number] 2.16.84 0.1.313235.3.579.2.593 1988 Unknown [id number] 2.16.84 0.1.971415.3.579.2.593 1988 Unknown [id number] 2.16.84 0.1.667625.3.579.2.593 1988 Unknown [id number] 2.16.84 0.1.942037.3.579.2.593 1988 Unknown [id number] 2.16.8 [id number] 1959 Private Health Insurance [id number] 1959 Self-pay 1959 Unknown [id number] Unknown [id number] 2.16.84 [id number] Social History Date Type Detail Facility Start: 04-08-2021 End: 04-30-2021 Tobacco smoking status GAIS Never smoker [employer] Phone: Start: 04-08-2021 End: 04-30-2021 Tobacco use and exposure Never used [employer] Start: 04-08-2021 End: 04-30-2021 Alcohol intake Lifetime non-drinker (finding) [employer] Work Phone: Start: 04-08-2021 History SDOH Alcohol Frequency 1 [employer] Work Phone: Start: 01-29-2021 [employer] Work Phone: Start: 1990 Sex Assigned At Not on file [employer] Work Phone: Exposure to SARS-CoV -2 (event) Not sure [employer] Start: 06-13-2017 Tobacco smoking status Smokes tobacco daily (finding) [facility] Comment on above: 10/18 ppd Sex Assigned At Female [facility] Tobacco smoking stat NHIS Tobacco smoking consumption unknown [facility] Functional Status Date Assessment Result Facility 10-19-2022 Functional Status N/A [facility] History of Present illness Narrative 07-09-2025 Karina Burgess MA - 07/09/2025 1:10 PM EDT Note Date & Type Note Facility 07-09-2025 History of Presen t illness Narrative Associated Order(s): IUD Removal Post-Procedure Diagnose(s): Encounter for IUD removal Reason for Appointment: Patient ID: Harsh Dennison is a 35 y.o. female who [...] Vitals: Estimated body mass index is 28.32 kg/m as calculated from the following: Height as of 18: 5' 7 . Weight as of this encounter: 180 lb 12.8 oz. BP: 116/70 No LMP recorded. Patient is . ASSESSMENT & PLAN Assessment/Plan Encounter Diagnosis: ICD-10-CM 1. Encounter for IUD removal Z30.432 2. Missed menses N92.6 US OB transvaginal 3. Positive urine test ([facility]) Z32.01 OB transvaginal IUD Removal Date/Time: 07/09/2025 1:52 PM Performed by: Luke Brooks DO Authorized by: Luke Brooks DO Consent: Consent obtained: Written Consent [...] by Karina Burgess MA on behalf of: Luke Brooks DO documented in this encounter [facility] Discharge instructions 10-19-2022 Note Date & [...] Follow these instructions at home: Medicines Take [id number]-bkl-[id number] and prescription medicines only as told by [...] and water are not available, use hand supervisor cleaning and annealing. Avoid contact with people who have cold [...] 11/10/2005 Document Revised: 08/16/2019 Document Reviewed: 03/23/2017 [employer] Patient Education 2020 [employer]. 10/19/2022 18:40:13 Upper Respiratory Infection, Adult, [id number]-Jdyz Upper Respiratory Infection, Adult An upper respiratory [...] and other clear broths. General instructions Take vnrk-moy-blztayl and prescription medicines only as told by [...] not have soap and water, use hand supervisor cleaning and annealing. Avoid touching your mouth, face, eyes, or [...] get better within 7 10 days. Take qbwl-zeu-lgllmzh and prescription medicines only as told by your doctor. This information is not intended to replace advice given to you by your health care provider. Make sure you discuss any questions you have with your health care provider. Document Released: 03/21/2009 Document Revised: 10/11/2019 Document Reviewed: 05/26/2018 [employer] Patient Education 2020 [employer]. Follow Up Care 10/19/2022 16:53:44 With:Joaquim Link Address: [address] [place] [address]- Business (1) When:10/22/2022 18:20:33 Comments:Follow-up with your primary care provider in 3 to 5 days. If symptoms worsen, do not improve, or new symptoms arise please report back to emergency department for further evaluation. [facility] Evaluation + Plan note Note Date & Type Note Facility Evaluation + Plan note No data available for this section [facility] Evaluation note Note Date & Type Note Facility Evaluation note Diagnosis Dental infection- Primary Acute apical periodontitis of pulpal origin documented in this encounter [employer] Phone: Evaluation note Note Date & Type Note Facility Evaluation note Diagnosis Vaginal bleeding in - Primary Unspecified antepartum hemorrhage, unspecified as to episode of care documented in this encounter [employer] Phone: Evaluation note Note Date & Type Note Facility Evaluation note Diagnosis Encounter for IUD removal Missed menses Positive urine test ([facility]) documented in this encounter [facility] Discharge instructions Attachments Note Date & Type Note Facility Hospital Discharge instructions The following attachments cannot be sent through Care Everywhere.Tooth: Abscessed (Mauritian)documented in this encounter [employer] Phone: Hospital Discharge instructions Attachments Note Date & Type Note Facility Hospital Discharge instructions The following attachments cannot be sent through Care Everywhere.: Vaginal Bleeding (Mauritian)documented in this encounter [employer] Phone: Progress note Note Date & Type Note Facility Progress note No data available for this section [facility] Summary Purpose Family History No Family History [...] pregn ant, pt of Dr. Jaime in [place]. Pt started bleeding this afternoon around 4pm. Pt called office and they told her to go to hospital. She came here because she lives in [place]. Pt also c/o abdominal cramping. Reason Comments IUD removal Patient has had posi tive test with Mirena. Patient desires Mirena to be removed. Ordered Prescriptions (unrec ognized section and content) [...] and content) DATE CREATED AUTHOR 05/02/2021 Umu Roque ramirez DATE CREATED AUTHOR AUTHOR'S ORGANIZ ATION 10/23/2021 [facility] DATE CREATED AUTHOR AUTHOR'S ORGANIZ ATION 08/16/2023 [facility] DATE CREATED AUTHOR AUTHOR'S ORGANIZ ATION 04/19/2025 [facility] Patient Care team informatio n (unrecognized section and content) Manager Investment Banking Relationship Specialty Start Date End Date Nakul Elias DO [address] [facility] [address] [place] [address] PCP - General Family Medicine 02/22/23 Manager Investment Banking Relationship Specialty Start Date End Date Nakul Elias DO [address] [facility] [address] [place] [address] PCP - General Family Medicine 02/22/23 FOR RECORDS PERTAINING TO PATIENTS WHO ARE [...] BE BASED ON THE PRIMARY CLINICAL RECORDS. [facility] [employer] [facility]. provides no warranty or guarantee of the accuracy or completeness of information in this document.
== END 2025-07-09 14:25 | disposition home or self-care (01) ==
LOC: US 14:25
PROVIDERS: Visit Provider Obstetrics & Gynecology
DX: Z32.01 Encounter for pregnancy test, result positive (principal); N92.6 Irregular menstruation, unspecified; N83.292 Other ovarian cyst, left side; N83.291 Other ovarian cyst, right side
CPT/HCPCS: 76817

== ENCOUNTER 2025-07-11 13:37 | Day surgery (SDC) | payer BC, SELFPAY ==
[2025-07-11] VITALS (36 sets, daily range): BP systolic 111–129; BP diastolic 69–95; PULSE 54–90; TEMP 36.3–36.9; O2SAT 98–100; BMI 28.2
--- NOTE | 2025-07-11 14:01 | US_ITS ---
[address] [address] Patient Name: HARSH OLIVARES MRN: [id number] date: 1990 Sex: F Assigned Patient Location: ED.MAIN Current Patient Location: ED.MAIN Accession/Order Number: [id number] Exam Date: 07/11/2025 14:16 Report Date: 07/11/2025 16:27 At the request of: ADEBAYO GIFFORD Procedure: US pelvis transvaginal Transvaginal pelvic ultrasound INDICATION: Rule out ectopic/miscarriage, vaginal bleeding, IUD removed 2 days ago COMPARISON: 07/09/2025 FINDINGS: Uterus measures 9.2 x 5.3 x 4.9 cm.. Endometrial thickness 1.1 cm thickened. Right ovary 5.5 x 5.0 x 4.0 cm. Right ovarian cysts 4.4 x 3.8 x 3.6 cm. Left ovary 4.1 x 2.9 x 3.4 cm in size. Complex appearing cyst with both septations and soft tissue component noted measuring 2.8 x 2.6 x 1.6 cm in size US/US pelvis transvaginal IMPRESSION: No intrauterine identified. Thickened endometrium may raise possibility for decidual reaction. Bilateral ovarian cystic structures identified. No definite adnexal mass. Redemonstration of the mildly complex free fluid. Ectopic cannot be entirely excluded. If intervention is not performed, continued 48 hour quantitative beta-hCG follow-up recommended. If symptoms persist or worsen, follow-up ultrasound is recommended. Impression dictated by: Hugo Hardwick M.D. 07/11/2025 4:27 PM Dictation Location: [place] [address] Electronically authenticated by: [id number] Y Date: 07/11/2025 16:27
[2025-07-11 14:29] LABS: Hematocrit 38.2 % (36.0-48.0); Hemoglobin 13.1 g/dL (12.0-16.0); Immature Granulocytes Abs Auto 0.02 10^3/uL (0.00-0.03); Immature Granulocytes Pct Auto 0.2 % (0.0-0.5); Lymphocytes Absolute Auto 2.6 10^3/uL (1.2-3.8); Mean Corpuscular HGB Conc 34.3 g/dL (29.9-35.2); Mean Corpuscular Hemoglobin 31.8 pg (26.7-34.0); Mean Corpuscular Volume 92.7 fL (81.0-99.0); Platelet Count 241 10^3/uL (150-450); Red Blood Count 4.12 10^6/uL (4.20-5.40); White Blood Count 9.0 10^3/uL (4.0-11.0)
--- NOTE | 2025-07-11 14:33 | PC.NURSE ---
Pt presents to ER for vaginal bleeding post possible miscarriage Pt reports coming to our ER on the after a positive test at home At that time pt had IUD in place Pt states she took one at home due to cramping she was having Pt followed up with Dr. Brooks after her ER visit here, had bloodwork done and an ultrasound Pt presents today due to increased abdominal cramping and bleeding Pt states today at work she bled through 2 super tampons in 30 minutes and that is when she decided to head in to be seen here This nurse accompanied Samuel GIFFORD during pelvic exam IV started Pt no to ultrasound
--- NOTE | 2025-07-11 14:39 | ED_ITS ---
HPI - General Chief complaint: Vaginal Bleeding Stated complaint: VAGINAL BLEEDING Time Seen by Provider: 07/11/25 13:58 Source: patient Mode of arrival: walk-in Limitations: no limitations History of Present Illness HPI Narrative: female presents with heavy vaginal bleeding, reporting saturation of 2 super tampons every 30 minutes for several hours. She was previously evaluated in the ED on 07/04 for positive test, hCG quant 87, and nondiagnostic pelvic ultrasound. Follow-up with Dr. Brooks on 07/07 showed hCG quant 92, IUD removed without complication, mild spotting and cramping at that time. Planned follow-up hCG next week. Today, bleeding and cramping have significantly worsened. No dizziness, syncope, chest pain, or shortness of breath reported. Related Data Home Medications ?Medication ?Instructions ?Recorded ?Confirmed No Known Home Medications 05/23/2406/18 Allergies Allergy/AdvReac Type Severity Reaction Status Date / Time No Known Drug Allergies Allergy Verified 07/11/25 13:54 PFSH PFS Medical History (Updated 07/11/25 @ 20:09 by CESAR HOWARD MD) Vaginal delivery ?O80 - Encounter for full-term uncomplicated delivery (ICD-10) Surgical History (Updated 07/11/25 @ 19:09 by CESAR HOWARD MD) History of back surgery ?Z98.890 - Other specified postprocedural states (ICD-10) Family History (Updated 07/11/25 @ 20:13 by CESAR HOWARD MD) Grandmother Family history of cancer Family history of diabetes mellitus Grandmother Family history of hypertension Social History (Updated 07/11/25 @ 20:10 by CESAR HOWARD MD) Smoking status: Current every day smoker Non-prescribed substance use: denies use Little interest or pleasure in doing things: not at all Feeling down, depressed, or hopeless: not at all Do you think of yourself as: straight/heterosexual Gender Identity: female Exam Narrative Exam Narrative: * General: Alert, oriented, hemodynamically stable * Vitals: BP 129/79, HR normal, afebrile * Cardiac/Respiratory: Clear heart and lung sounds * Abdomen: Suprapubic tenderness * Pelvic Exam: Several clots in vaginal vault, brisk bleeding from cervical os, cervix closed, no visible tissue * Neuro: Mentation intact, no orthostatic symptoms Constitutional Vital Signs, click to edit/add: Last Vital Signs Temp 97.4 F L 07/11/25 19:50 Pulse 65 07/11/25 20:20 Resp 23 H 07/11/25 20:20 BP 121/87 07/11/25 20:20 Pulse Ox 100 07/11/25 20:20 O2 Del Method Room Air 07/11/25 20:20 Course Vital Signs Vital signs: Vital Signs Temperature 98.4 F 07/11/25 13:47 Pulse Rate 82 07/11/25 13:47 Respiratory Rate 16 07/11/25 13:47 Blood Pressure 129/79 07/11/25 13:47 Pulse Oximetry 100 07/11/25 13:47 Temperature 97.4 F L 07/11/25 19:50 Pulse Rate 65 07/11/25 20:20 Respiratory Rate 23 H 07/11/25 20:20 Blood Pressure 121/87 07/11/25 20:20 Pulse Oximetry 100 07/11/25 20:20 Oxygen Delivery Method Room Air 07/11/25 20:20 MDM - OB/Uterine Contractions MDM Narrative Medical decision making narrative: Diagnostics: * hCG Quant: 93 (stable, no appropriate rise) * Ultrasound: No intrauterine visualized, no evidence of ectopic, thickened endometrium * CBC: H/H normal * Chemistry: Within normal limits * Blood type: O+, Rh positive (per previous visit last week) MDM / Differential: This patient presents with acute heavy vaginal bleeding and pelvic pain with persistently low and non-rising hCG, no IUP on ultrasound, and closed cervical os. Differential diagnosis includes early loss (threatened, incomplete, or missed ), very early viable IUP (less likely given no change in hCG), and ectopic (low suspicion given imaging and stability tyler Dr. Howard, but cannot be completely excluded). Given her hemodynamic stability, normal hemoglobin, and lack of orthostasis, no emergent transfusion was indicated. After consultation with OB (Dr. Howard), management options of medical therapy with Provera versus surgical management (D&C) were discussed with the patient. Due to ongoing heavy bleeding and pain, patient elected to proceed with D&C tonight. She has been NPO since noon. Plan is to admit for D&C and observation post-procedure. Plan: * Admit for D&C tonight * Monitor vitals, pad counts * Type and screen confirmed O+, no Rhogam needed * No additional ED orders needed per OB Patient understands and agrees with plan. Lab Data Labs: Lab Results 07/11/25 Range/Units 14:20 WBC 9.0 (4.0-11.0) 10^3/uL RBC 4.12 L (4.20-5.40) 10^6/uL Hgb 13.1 (12.0-16.0) g/dL Hct 38.2 (36.0-48.0) % MCV 92.7 (81.0-99.0) fL MCH 31.8 (26.7-34.0) pg MCHC 34.3 (29.9-35.2) g/dL RDW 11.9 (11.0-15.0) % Plt Count 241 (150-450) 10^3/uL MPV 9.7 (9.5-13.5) fL Neut % (Auto) 62.1 (43.0-75.0) % Lymph % (Auto) 28.4 (20.5-60.0) % Alcorn % (Auto) 7.9 (1.7-12.0) % Eos % (Auto) 0.7 L (0.9-7.0) % Baso % (Auto) 0.7 (0.2-2.0) % Neut # (Auto) 5.6 (1.4-6.5) 10^3/uL Lymph # (Auto) 2.6 (1.2-3.8) 10^3/uL Alcorn # (Auto) 0.7 (0.3-0.8) 10^3/uL Eos # (Auto) 0.1 (0.0-0.7) 10^3/uL Baso # (Auto) 0.1 (0.0-0.1) 10^3/uL Abs Immat Gran (auto) 0.02 (0.00-0.03) 10^3/uL Imm/Tot Granulo (auto) 0.2 (0.0-0.5) % Sodium 139 (136-145) mmol/L Potassium 3.5 (3.5-5.1) mmol/L Chloride 107 (98-107) mmol/L Carbon Dioxide 26.8 (21.0-32.0) mmol/L Anion Gap 8.7 BUN 8.0 (7.0-18.0) mg/dL Creatinine 0.64 (0.55-1.02) mg/dL Est GFR ( Amer) >60 (>=60 mL/min/1.73m^2) Est GFR (Non-Af Amer) >60 (>=60 mL/min/1.73m^2) BUN/Creatinine Ratio 12.5 Glucose 92 (74-106) mg/dL Calcium 8.9 (8.5-10.1) mg/dL HCG, Quant 93 mIU/mL Blood Type O Positive Antibody Screen Negative Discharge Plan Discharge Patient Disposition: Admitted to Surgery Discharge Date/Time: 07/11/25 19:00
[2025-07-11 14:49] LABS: Anion Gap 8.7; Blood Urea Nitrogen 8.0 mg/dL (7.0-18.0); Calcium 8.9 mg/dL (8.5-10.1); Carbon Dioxide 26.8 mmol/L (21.0-32.0); Chloride 107 mmol/L (98-107); Estimated GFR (African America >60 (>=60 mL/min/1.73m^2); Estimated GFR (Non-African Ame >60 (>=60 mL/min/1.73m^2); Glucose 92 mg/dL (74-106); Potassium 3.5 mmol/L (3.5-5.1); Sodium 139 mmol/L (136-145)
--- NOTE | 2025-07-11 15:11 | ECG_ITS ---
[facility] Test Date: 2025-07-11 Pat Name: HARSH OLIVARES Department: Room: Gender: Female Raveler: : 1990 Requested By: 1030 Order Number: [id number] Reading MD: LAVERN QUINONES M.D. Measurements Intervals Lane Rate: 68 P: 63 CT: 134 QRS: 41 QRSD: 88 T: 36 QT: 400 QTc: 417 Interpretive Statements 1100 Sinus rhythm 9110 normal ECG Compared to ECG 05/23/2024 08:25:09 No significant changes Electronically Signed On 07-12-2025 7:34:02 EDT by LAVERN QUINONES M.D.
[2025-07-11] MEDS: 0.9 % SODIUM CHLORIDE 1,000 ML 1000 ML IV (15:15)
--- OUTSIDE RECORDS SUMMARY | 2025-07-11 15:37 | XMS_ITS | Clinical Summary ---
Author Organization [facility] Address [address] [facility] [place] [address] Care Team Providers Care Geriatric Physician Name Role Phone Nakul Elias Primary Care Provider [phone] Allergies No known active allergies Medications VIT-FE FUMARATE-FA PO Take 1 tablet by mouth Daily Active acetaminophen (Tylenol) 500 MG tablet Take 1,000 mg by mouth every 6 (six) hours if needed Active Active Problems Problem Noted Date Diagnosed Date Encounter for IUD removal 07/09/2025 Comments Yes Encounters Date Type Department Care Team Description 07/09/2025 1:10 PM EDT Procedure Visit [facility] [address] [place] [address] Luke Brooks DO Encounter for IUD removal; Missed menses; Positive urine test ([facility]) 07/09/2025 Clinisync Result Encounter [facility] External Department Unsolicited Luke Brooks, 07/08/2025 [place] [address] Luke Brooks, 07/08/2025 Clinisync Result Encounter [facility]OM[facility] External Department Unsolicited Luke Brooks, 07/08/2025 Telephone [facility] [address] [place] [address] Luke Brooks, 07/04/2025 Telephone [facility] [address] [place] [address] Vero Lowe MA from Last 3 [...] EDT Procedure Visit [facility] [address] [place] [address] Luke Brooks DO [address] [place] [address] Health Maintenance Due Date Last Done Comments Pap Smear 02/03/2009 Cervical Cancer Screening 02/03/2018 HPV/Cotest 02/03/2018 Influenza Vaccine (#1) 2025 Procedures Procedure Name Priority Date/Time Associated Diagnosis Comments US OB TRANSVAGINAL 07/09/2025 3: 10 PM EDT IUD REMOVAL Routine 07/09/2025 1:52 PM EDT Encounter for IUD removal [facility] PREG QUANT HCG Routine 07/08/2025 1: 10 PM EDT from Last 3 Months Results * US OB TRANSVAGINAL (07/09/2025 3:10 PM EDT) Anatomical Region Laterality Modality Other 07/09/2025 3:10 PM EDT Narrative 07/09/2025 3:30 PM EDT [place] [id number] Ultrasound Report Signed Patient: HARSH DENNISON MR#: [id number] : 1990 Acct:[id number] Age/Sex: 35 / F ADM Date: 07/09/25 Loc: US Attending Dr: Luke Brooks D.O. Ordering Physician: Luke Brooks D.O. Date of Service: 07/09/25 Procedure(s): US OB transvaginal Accession Number(s): [id number] cc: Luke Brooks D.O.; SARWAT MURRAY [address] [address] Patient Name: HARSH DENNSION MRN: [id number] date: 1990 Sex: F Assigned Patient Location: US Current Patient Location: US Accession/Order Number: [id number] Exam Date: 07/09/2025 14:32 Report Date: 07/09/2025 15:10 At the request of: LUKE BROOKS DO Procedure: US OB transvaginal OB ultrasound. Reason for exam:Positive test. IUD was removed in office. Possible ectopic . Per technologist, beta hCG is 80. Comparison:None Technique: Transvaginal imaging of the uterus and ovaries were obtained. Findings: No evidence of intrauterine is identified. No measurable fibroid. The right ovary measures 4.9 x 3.6 x 4.9 cm. The left ovary measures 3.6 x 3.1 x 3.5 cm. There appears to be corpus luteum/hemorrhagic cysts involving both ovaries largest measuring 3.8 x 3.3 x 3.9 cm involving the right ovary. No definite adnexal mass is seen. There is questionable small amount of complex free fluid versus reverberation artifact. US/US OB transvaginal Impression: No ultrasound evidence of intrauterine is identified. There appears to be bilateral corpus luteum/hemorrhagic cysts involving both ovaries largest measuring 3.9 cm involving the right ovary. No definite adnexal mass is seen. There is questionable small amount of complex free fluid versus reverberation artifact. Differential considerations includes early IUP or miscarriage. Given the questionable complex free fluid, an ectopic cannot BE excluded. Correlation with beta-hCG trend is recommended . If intervention is not performed, repeat ultrasound is also recommended. Impression dictated by: Ricardo Umanzor Jr., D.O. 07/09/2025 3:10 PM Dictation Location: [place] [address] Electronically authenticated by: [id number] Y Date: 07/09/2025 15:10 Dictated By: Ricardo Umanzor M.D. Signed By: 07/09/25 1530 DD/ 1510 TD/TT: Road Marker: Procedure Note Radiology, Radiologist, MD - 07/09/2025 [place] [address] Ultrasound Report Signed Patient: HARSH DENNISON RMR#: [id number] : 1990Acct:[id number] Age/Sex: 35 / FADM Date: 07/09/25 Loc: US Attending Dr: Luke Brooks D.O. Ordering Physician: Luke Brooks D.O. Date of Service: 07/09/25 Procedure(s): US OB transvaginal Accession Number(s): [id number] cc: Luke Brooks D.O.; SARWAT MURRAY [place] [id number] Patient Name: HARSH DENNISON MRN: [id number] date: 1990 Sex: F Assigned Patient Location: Current Patient Location: US Accession/Order Number: [id number] Exam Date: 07/09/2025 14:32 Report Date: 07/09/2025 15:10 At the request of: LUKE BROOKS DO Procedure: US OB transvaginal OB ultrasound. Reason for exam:Positive test. IUD was removed in office.Possible ectopic . Per technologist, beta hCG is 80. Comparison:None Technique: Transvaginal imaging of the uterus and ovaries were obtained. Findings: No evidence of intrauterine is identified. No measurablefibroid. The right ovary measures 4.9 x 3.6 x 4.9 cm. The left ovary measures 3.6x 3.1 x 3.5 cm. There appears to be corpus luteum/hemorrhagic cystsinvolving both ovaries largest measuring 3.8 x 3.3 x 3.9 cm involving the rightovary. No definite adnexal mass is seen. There is questionable small amount of complex free fluid versus reverberation artifact. US/US OB transvaginal Impression: No ultrasound evidence of intrauterine is identified. Thereappears to be bilateral corpus luteum/hemorrhagic cysts involving both ovarieslargest measuring 3.9 cm involving the right ovary. No definite adnexal mass isseen. There is questionable small amount of complex free fluid versusreverberation artifact. Differential considerations includes early IUP or miscarriage. Given the questionable complex free fluid, an ectopic cannot BE excluded. Correlation with beta-hCG trend is recommended . Ifintervention is not performed, repeat ultrasound is also recommended. Impression dictated by: Ricardo Umanzor Jr., D.O. 07/09/2025 3:10 PM Dictation Location: [place] [address] Electronically authenticated by: [id number] Y Date: :10 Dictated By: Ricardo Umanzor M.D. Signed By:07/09/25 1530 DD/ 1510 TD/TT: Road Marker: us Luke Brooks DO [facility] Final Result * IUD REMOVAL (07/09/2025 1:52 PM EDT) [...] wanting to schedule for bilateral salpingectomy. us Luketeddy Brooks DO IN CLINIC/BEDSIDE ORDERABLES Fin al Result * [facility] PREG QUANT HCG (07/08/2025 1:10 PM EDT) HCG QUANTITATIVE 90 mIU/mL [facility] Comment: 5-50 0.2-1 WEEK 50-500 1-2 WEEKS 100-5,000 2-3 WEEKS 500-10,000 3-4 WEEKS 1,000-50,000 4-5 WEEKS 10,000-100,000 5-6 WEEKS 15,000-200,000 6-8 WEEKS 10,000-100,000 2-3 MONTHS 07/08/2025 1:10 PM EDT 07/08/2025 1:11 PM EDT Narrative [facility] - 07/08/2025 1:59 PM EDT us Luke Brooks DO [facility] Final Result [facility] from Last 3 Months Insurance Care Teams Geriatric Physician Relationship Specialty Start Date End Date Nakul Elias DO [address] [place] [address] PCP - General Family Medicine 02/22/23
--- OUTSIDE RECORDS SUMMARY | 2025-07-11 15:38 | XMS_ITS | Encounter Summary ---
Author Organization [facility] Address [address] [facility] [place] [address] Care Team Providers Care Oyster Culturist Name Role Phone Nakul Elias DO Primary Care Provider [phone] Encounter Details Date Type Department Care Team (Late st Contact Info) Description 07/08/2025 Telephone [facility] [address] [place] [address] Sudhir Brooks DO [address] [place], [facility] Social History Tobacco Use Types Packs/Day Years [...] being ableto be transferred. Orders sent to [facility]. * Telephone Encounter - Chichi Bhatia LPN - 07/08/2025 9:55 AM EDT I was calling to find out the results of my blood work that I got done over the weekend at the hospital. I just calling to see what is going on. And when I can get my control out, you can call me back [phone]. Thank you. Patient call was returned and [...] Sudhir Brooks DO [address] [place] [address] Scheduled Orders Name Type Priority Associated Diagnoses Orde r Schedule hCG, quantitative, Lab Routine Positive urine test ([facility]) 6 Occurrences starting 07/08/2025 until 07/08/2026 documented as of this encounter Visit Diagnoses Diagnosis Positive urine test ([facility]) documented in this encounter Care Teams Oyster Culturist Relationship Specialty Start Date End Date Nakul Elias DO [address] [facility] [address] [place] [address] PCP - General Family Medicine 02/22/23 documented as of this encounter
--- OUTSIDE RECORDS SUMMARY | 2025-07-11 15:38 | XMS_ITS | Encounter Summary ---
Author Organization [facility] Address [address] [place] [address] Care Team Providers Care Export Specialist Name Role Phone Nakul Elias DO Primary Care Provider [phone] Encounter Details Date Type Department Care Team (Late Contact Info) Description 07/04/2025 Telephone [facility] [address] [place] [address] Vero Lowe MA [address] [place] [address] Social History Tobacco Use Types Packs/Day Years [...] EDT Procedure Visit [facility] [address] [facility] [place] [id number] Sudhir Brooks DO [address] [facility] [address] [place] [address] documented as of this encounter Visit Diagnoses Not on filedocumented in this encounter Care Teams Export Specialist Relationship Specialty Start Date End Date Nakul Elias DO [address] [facility] [address] [place] [address] PCP - General Family Medicine 02/22/23 documented as of this encounter
--- OUTSIDE RECORDS SUMMARY | 2025-07-11 15:38 | XMS_ITS | Encounter Summary ---
Author Organization [facility] Address [address] [place] [address] Care Team Providers Care Management Recruiter Name Role Phone Nakul Elias DO Primary Care Provider [phone] Encounter Details Date Type Department Care Team (Late Contact Info) Description 07/08/2025 Abstract [facility] [address] [facility] [place] [phone] Sudhir Brooks DO [address] [place] [id number] Social History Tobacco Use Types Packs/Day Years [...] 10:20 AM EDT Procedure Visit [facility] [address] [place], [place] [address] [address] Sudhir Brooks DO [address] [place], [place] [phone] documented as of this encounter Visit Diagnoses Not on filedocumented in this encounter Care Teams Management Recruiter Relationship Specialty Start Date End Date Nakul Elias DO [address] [place] [address] PCP - General Family Medicine 02/22/23 documented as of this encounter
--- OUTSIDE RECORDS SUMMARY | 2025-07-11 15:38 | XMS_ITS | Encounter Summary ---
Author Organization [facility] Address [address] [facility] [place] [address] Care Team Providers Care Gun Examiner Name Role Phone Nakul Elias DO Primary Care Provider [phone] Encounter Details Date Type Department Care Team (Late st Contact Info) Description 07/09/2025 Clinisync Result Encounter [facility] External Department Unsolicited Luke Brooks DO [address] [place] [id number] Social History Tobacco Use Types Packs/Day Years [...] 10:20 AM EDT Procedure Visit [facility] [address] [place] [id number] Luke Brooks DO [address] [place] [address] documented as of this encounter Procedures Procedure Name Priority Date/Time Associated Diagnosis Comments US OB TRANSVAGINAL 07/09/2025 3: 10 PM EDT documented in this encounter Results * US OB TRANSVAGINAL (07/09/2025 3:10 PM EDT) Anatomical Region Laterality Modality Other 07/09/2025 3:10 PM EDT Narrative 07/09/2025 3:30 PM EDT [address] [address] Ultrasound Report Signed Patient: HARSH DENNISON MR#: [id number] : 1990 Acct:[id number] Age/Sex: 35 / F ADM Date: 07/09/25 Loc: US Attending Dr: Luke Brooks D.O. Ordering Physician: Luke Brooks D.O. Date of Service: 07/09/25 Procedure(s): US OB transvaginal Accession Number(s): [id number] cc: Luke Brooks D.O.; SARWAT MURRAY [address] [address] Patient Name: HARSH DENNISON MRN: [id number] date: 1990 Sex: F Assigned Patient Location: US Current Patient Location: US Accession/Order Number: [id number] Exam Date: 07/09/2025 14:32 Report Date: 07/09/2025 [...] Jr., D.O. 07/09/2025 3:10 PM Dictation Location: [place] [address] Electronically authenticated by: [id number] Y Date: 07/09/2025 15:10 Dictated By: Ricardo Umanzor M.D. Signed By: 07/09/25 1530 DD/ 1510 TD/TT: Culinary Arts Instructor: Procedure Note Radiology, Radiologist, - 07/09/2025 [place] [address] Ultrasound Report Signed Patient: HARSH DENNISON RMR#: [id number] : 1990Acct:[id number] Age/Sex: 35 / FADM Date: 07/09/25 Loc: US Attending Dr: Luke Brooks D.O. Ordering Physician: Luke Brooks D.O. Date of Service: 07/09/25 Procedure(s): US OB transvaginal Accession Number(s): [id number] cc: Luke Brooks D.O.; SARWAT MURRAY [place] [id number] Patient Name: HARSH DENNISON MRN: [id number] date: 1990 Sex: F Assigned Patient Location: US Current Patient Location: US Accession/Order Number: [id number] Exam Date: 07/09/2025 14:32 Report Date: 07/09/2025 [...] Jr., D.O. 07/09/2025 3:10 PM Dictation Location: [place] [address] Electronically authenticated by: [id number] Y Date: :10 Dictated By: Ricardo Umanzor M.D. Signed By:07/09/25 1530 DD/ 1510 TD/TT: Culinary Arts Instructor: us Luke Cecilia DO [facility] Final Result documented in this encounter Visit Diagnoses Not on filedocumented in this encounter Care Teams Gun Examiner Relationship Specialty Start Date End Date Nakul Elias DO [address] [place] [address] PCP - General Family Medicine 02/22/23 documented as of this encounter
--- OUTSIDE RECORDS SUMMARY | 2025-07-11 15:38 | XMS_ITS | Encounter Summary ---
Author Organization [facility] Address [address] [facility] [place] [address] Care Team Providers Care Pharmacy Informaticist Name Role Phone Nakul Elias DO Primary Care Provider [phone] Encounter Details Date Type Department Care Team (Late st Contact Info) Description 07/08/2025 Clinisync Result Encounter [facility] External Department Unsolicited Sudhir Brooks [address] [place] [phone] Social History Tobacco Use Types Packs/Day Years [...] EDT Procedure Visit [facility] [address] [place] [phone] Sudhir Brooks [address], [id number] documented as of this encounter Procedures Procedure [...] EDT Sudhir Cecilia DO [facility] documented in this encounter Visit Diagnoses Not on filedocumented in this encounter Care Teams Pharmacy Informaticist Relationship Specialty Start Date End Date Nakul Elias DO [address] [facility] [address] [place] [address] PCP - General Family Medicine 02/22/23 documented as of this encounter
--- OUTSIDE RECORDS SUMMARY | 2025-07-11 15:42 | XMS_ITS | CCD ---
Author Organization [facility] Care Team Providers Care Kitchen Designer Name Role Phone Yifan Umana Primary Care Provider VENECIA PATTERSON Attending Unavailable MURRAY, YIFAN A Primary Care Unavailable ANTHONY BARBA Attending Unavailable MURRAY, YIFAN A Primary Care Unavailable KARASIK, DR GALLEGOS Attending Unavailable KARASIK, DR GALLEGOS Admitting [facility]available KARASIK, DR GALLEGOS Consulting Unavailable CECILIA, DR BUTLER Admitting Unavailable CECILIA, DR BUTLER Attending Unavailable CECILIA, DR BUTLER Consulting Unavailable MURRAY, YIFAN Primary Care Unavailable ZIEBER, DR AYDE Sousa Consulting Unavailable KARASIK, DR GALLEGOS Admitting Unavailable KARASIK, DR GALLEGOS Attending Unavailable KARASIK, DR GALLEGOS Consulting Unavailable MURRAY, YIFAN Primary Care Unavailable KARASIK, DR GALLEGOS Admitting Unavailable KARASIK, DR GALLEGOS Attending Unavailable KARASIK, DR GALLEGOS Consulting Unavailable MURRAY, YIFAN Primary Care Unavailable KARASIK, DR GALLEGOS Admitting Unavailable REQUEST, DR GARCIA LISTED Primary Care Unavaila ble KARASIK, DR GALLEGOS Consulting Unavailable KARASIK, DR GALLEGOS Attending Unavailable REQUEST, NONE LISTED Primary Care Unavaila ble KARASIK, DR GALLEGOS Admitting Unavailable KARASIK, DR GALLEGOS Attending Unavailable GLEN PACKER Admitting Unavailable KARASIK, DR GALLEGOS Consulting Unavailable GLEN PACKER Attending Unavailable MURRAY, YIFAN Primary Care Unavailable BALTA TORRES Consulting Unavailable YURIY WISE Consulting Unavailable KARASIK, DR GALLEGOS Admitting Unavailable KARASIK, DR GALLEGOS Attending Unavailable KARASIK, DR GALLEGOS Consulting Unavailable MURRAY, YIFAN Primary Care Unavailable ZIEBER, DR AYDE Sousa Consulting Unavailable KARASIK, DR GALLEGOS Admitting Unavailable KARASIK, DR GALLEGOS Attending Unavailable KARASIK, DR GALLEGOS Consulting Unavailable YIFAN MURRAY Primary Care Unavailable PRAMOD ELLIOTT Consulting Unavailable NOEL, DR GALLEGOS Procedure Practitioner Unava ilable ISIDROK, DR GALLEGOS Admitting Unavailable YIFAN MURRAY Primary Care Unavailable KARASIK, DR GALLEGOS [...] Attending Unavailable Joaquim Osuna Primary Care Physician [phone] Chucho Kwon Attending Unavailable Sharath CALIX Attending Unavailable Sharath CALIX Attending Unavailable Nakul Elias DO Primary Care Provider SUDHIR BROOKS Attending Unavailable Medications Current Medications Medication Drug Class(es) Dates Sig (Normalized) Sig (Original) acetaminophen 500 mg oral tablet (3 sources) take 2 tablets by mouth every six hours as needed acetaminophen (Tylenol) 500 MG tablet Take 1,000 mg by mouth every 6 (six) hours if needed Active acetaminophen 325 mg / HYDROcodone bitartrate 5 mg oral tablet (1 source) Opioid Agonist Start: 06-17-2017 [place] 325 mg-5 mg oral tablet See Instructions, [...] day(s), # 6 tab(s), Refills(s) 0, Pharmacy: [facility], 170, cm, 10/19/22 16:59:00 EST, Height/Length [...] day(s), # 5 tab(s), Refills(s) 0, Pharmacy: [facility] #[facility], 170, cm, 10/19/22 16:59:00 EST, Height/Length Dosing, 66, kg, 10/19/22 16:59:00 EST, Weight Dosing Start Date: 10/19/22 Stop Date: 10/24/22 Status: Ordered Vit-Fe Fumarate-FA ( PO) (1 source) take 1 tablet by mouth once daily Vit-Fe Fumarate-FA ( PO) Take 1 tablet by mouth daily 0 Active VIT-FE FUMARATE-FA PO (2 sources) take 1 tablet by mouth once daily [...] Onset: 10-19-2022 Episodic Contraceptive and procreative management (3 sources) Patient encounter status; Translations: [Encounter for [...] also wanting to schedule for bilateral salpingectomy. [facility] OB TRANSVAGINALon [address] [place] [address] Ultrasound Report Signed Patient: SOFIA OLIVARES MR#: [id number] : 1990 Acct:[id number] Age/Sex: 35 / F ADM Date: 07/09/25 Loc: US Attending Dr: Sudhir Brooks D.O. Ordering Physician: Sudhir Brooks D.O. Date of Service: 07/09/25 Procedure(s): US OB transvaginal Accession Number(s): [id number] cc: Sudhir Brooks D.O.; YIFAN MURRAY [place] [id number] Patient Name: SOFIA OLIVARES MRN: [id number] date: 1990 Sex: F Assigned Patient Location: US Current Patient Location: US Accession/Order Number: [id number] Exam Date: 07/09/2025 14:32 Report Date: 07/09/2025 15:10 At the request of: SUDHIR BROOKS DO Procedure: US OB transvaginal OB [...] ultrasound is also recommended. Impression dictated by: David Soto Jr.OGiles 07/09/2025 3:10 PM Dictation Location: [place] [address] Electronically authenticated by: [id number] Y Date: 07/09/2025 15:10 Dictated By: Ricardo Umanzor M.D. Signed By: 07/09/25 1530 DD/ 1510 TD/TT: Business Partner: [facility] Radiology, Radiologist, MD - 07/09/2025 [place] [address] Ultrasound Report Signed Patient: SOFIA OLIVARES MR#: [id number] : 1990 Acct:[id number] Age/Sex: 35 / F ADM Date: 07/09/25 Loc: US Attending Dr: Sudhir Brooks D.O. Ordering Physician: Sudhir Brooks D.O. Date of Service: 07/09/25 Procedure(s): US OB transvaginal Accession Number(s): [id number] cc: Sudhir Brooks D.O.; YIFAN MURRAY [place] [address] Patient Name: SOFIA OLIVARES MRN: [facility]:[id number] date: 1990 Sex: F Assigned Patient Location: Current Patient Location: Accession/Order Number: [id number] Exam Date: 07/09/2025 14:32 Report Date: 07/09/2025 15:10 At the request of: SUDHIR BROOKS DO Procedure: US OB transvaginal OB [...] Jr., D.O. 07/09/2025 3:10 PM Dictation Location: [place] [address] Electronically authenticated by: [id number] Y Date: 07/09/2025 15:10 Dictated By: Ricardo Umanzor M.D. Signed By: 07/09/25 1530 DD/ 1510 TD/TT: Business Partner: [facility] Radiology Study observation (narrative) [facility] US OB TRANSVAGINALOrdered By : Radiologist Radiology on 07-09-2025 [facility] Work Phone: [facility] PREG QUANT HCGon 025 HCG QUANTITATIVE 90 mIU/mL [facility] Comment on above: 5-50 0.2-1 WEEK 50-500 1-2 WEEKS 100-5,000 2-3 WEEKS 500-10,000 3-4 WEEKS 1,000-50,000 4-5 WEEKS 10,000-100,000 5-6 WEEKS 15,000-200,000 6-8 WEEKS 10,000-100,000 2-3 MONTHS [facility] ED Note-Physicianon 10-26-19 ED Note-Physician Basic Information [...] cough for her. Reports that he tried kawi-cgp-jobhzlg medications, with no relief of her symptoms. [...] and Complexity of Problems Differential Diagnosis: [] [facility] Data External documents reviewed: [] My EKG interpretation: [] My CT interpretation: [] My X-ray interpretation: Reviewed My Ultrasound interpretation: [] Decision rules/scores evaluated: [] Discussed with: [] Treatment and Disposition ED Course: 32-year-old female reports emergency department chief complaint of cough that is been going since a month ago. Reports that it is not getting better. Reports that she has tried xgew-kan-rwbdksb medications without much relief of her symptoms. Reports that she is still coughing. Denies any recent antibiotic use. Reports that she has tried ymbn-bdw-ejwfeit medication without relief. Denies any fevers or [...] antibiotics and medication as prescribed. Continue take zglg-cqd-aiahvyx medications. Discussed return precautions. Follow-up with your primary care provider in 3 to 5 days. If symptoms worsen, do not improve, or new symptoms arise please report back to emergency department for further evaluation. The patient was understanding and agreeable to plan moving forward. []The patient has acute bronchitis/bronchiol itis and antibiotics were not prescribed or dispensed today.[[facility]] [x] The patient has acute bronchitis/bronchiol [...] day(s), # 6 tab(s), Refills(s) 0, Pharmacy: [facility] #16, 170 (more content not included)... Normal [facility] Comment on above: Result Comment: Elec tronically Signed By: Tony Hamlin PA-C\.br\Date and Time Signed: 10/19/22 21:25 EST\.br\Electronically Co-Signed By: Chucho Kwon DO\.br\Date and Time Co-Signed: 10/26/22 07:09 EST Coding Summary.on 10-22-2022 Coding Summary. [id number] Gh0bWw+PGhlYWQ+PE1FV KUtH68dvLTclH8WX4qCC E1ZWDUWNGSQIK6RCX9yv SW4KEtbS9QvrqXh RxjfwOFcAO10ZRk0EDX6 jUccVCatuL8tgGRnT9w8 EfZlGV30eG00RMzrKJFj EnT9KkAgynbxbVDi K0khIsCxxVZgFdd+PHRh YmxlIHdpZHRoPScxMDAl LsYgmValFK5tEb5fLTKg LWNvbGxhcHNlOiBj k8puPLPxGSphOM4jjBei D7AikIE6XKYrf3r9Wi10 dHI+UWLeRYI9iUdeHRiz j723IpGtk2eeLRK3 mKOyXNdjSER3Y22an2A2 ICMpSEWpKEJ8qHE2jN0t dJdnojxiM7LhnVEsSpA0 YJN1mRWpaM0hbNxc awbqsO3wBqb+Z81QCP4R CVTVWS4ETaz6H5ZdUrnz dHI+JA32LFIbIC94nCUm tEOdz0bvnRs9PxAj IGYfSZL6zDqlDUeuu0Wy QZYtS86hdHHyd7V3ZACe lMioiAMdNpDtkXV9pB5g RWtrfhwkb4omqmbt Talbd3lhjs48hE81T68v BEovEKCnQGZ8JEQmGBLy iDxqbj7zrH1jMe1+IDxj p2rei4pucFg9UmSf JMNfceYbzMssGWQ4f0Zy Su41Z8HjmKovt0JsAyj6 ww63dPPvk1C7uPL1NRbz OEXfnE5gEDpqFsT3 TESuPwQuiI62sITfGGnz Au1gmVosbMzcJT8vYIYv ratjJRUynA2sNUAvbXGz jWmuPJ3pXBItqbfh a488PgGlUZO6IBVdsUEz B2HpkX5eTbAgBRKfFRHa A3KqsYCvXNatQ979AAix YmR6LAWtuxThU8Ju ZOLjjXkmApN8z7L1Pi1Z q9HpkaqeBSW2SZgzMGKw RbG4UlWuHcO9W6KoMfh8 CAIqmBtxTG7jP1Ty OZLenlkzpstduCL4VRWa URQdxI47hUUcFLwmQp6i d9B2l941PKHbZMSzkJ13 Ed3cwMhhRLFmmQVY qF5emvzmt5fnshokVdIo PFHaTIz7OGt2LOAppMum PoTvJOC4BuB7TCH7xCZp sJ1roRgzmmojyW7e Oyc+J14laS9qGEA1NZH3 gdmxSKDmcfHgRX71HK56 V7IeFjrahXGneWK+PGRp nuWucKxeKI3dRyMa r4pic0PrJHchS6DyIVEw INuxVde8RNMsUPR9uDN1 jD2bCJQyQLhrs2D4nBK4 O7YfjpWhmp5sj3cl NTEvLUusN43nnECnz6Y5 TDIsmGN1IGOqhVonIwJw dQ14Ago+MQAzuTwde9Xk Xoipn6upi7osaKz2 IjMwJSIgdmFsaWduPSJ0 c7PzJr59U63nFVvuSUCx FCTgOXUoGPMmkGlltq5w oJ9dLr5+PGNvbCB3 dYX3dD6nDYGrXuD7QBbl L005TwAnrYHbPccfj1uz o4ieaDv2QqZaOHFgneSi nNmrUYE6h9MmFt11 A59fGVuvGIMrBLRbADQa IRNivZnbka1gpQ8hVr3+ ZE9du1kcom22kO41zTV+ RXIuJNF3qUvcHZyx YJAppV3uICetZyN3ASYm LqQcvQ26rXCwMDhyMh4l yHcafPpfQY6mWNAxshto m933SlGtt1acVJWb eNLkVMboHXF9F43dr7R4 OEYlSPCaSAX7tPV2dP6c bGlnbjogbGVmdDsgdmVy cAuaWRdvYIpcQ203 IHRvcDsnPlBhdGllbnQg KmBlJTz9U0PhUbv7IUYu oNorLM8tlJViDIpeDo8b iPxqmReeMU0oMYDo giyvs201HgJdb2uhDHVs dQNmUQowMFR6U57ke8X1 OJAlQSOdLDW8iZO5kX5e bGlnbjogbGVmdDsg ayDbqRzaVRrrKKqnK247 IHRvcDsnPkJpcnRoIERh bKQ4CY70MR90wJOof9Y4 fCC8W1OvJKClnaep nnbedVD7NJByKAIwlB16 Wu2vuIntVg9tKGDgZHM2 QTGlpWMaK0SdlD1mTdKe PWVeYNHwQ1XwmKHh TUslL306HNafDlB6VBNa npDcI3YqJRUsgHtxUsX1 j3G1Ip6WG5K6YD41QO55 xGRtk8E4zEY5S0Gy WJDtvxuppziztDM6XTXm EHWigY62Ns4zhTpbZn8u QMBoGGV9LIQueEYnZ3Lm xB8wRdTlMMUkZYJx F7PcuJXzLFdnN661ABvm EgJ1BERpelIrU0VrCJAk gFhiReE0g4Y0Gn7VOBz1 FM95TE95fHYpl5H7 hGD9E5QqUPTivvdeusdi rAE8EMRmOICwuQ51Od7t rMdvEx4yJLCuUSW6HPUp jDZiF1RtkT3cHtGz RCPoMHXvM5ApaZEpNHhw J946HJpbImP2VRJjmfWf U6GsLGTbwWuwWwB7n4P8 Up2NZBOfLY10DWO7 xBV1VV54ZB14I8AsQohq dGFibGU+PHRhYmxlIHdp ZHRoPScxMDAlJyBzdHls TE7jKq2kMIHbIDDo pUvrbKQiMcJgg3nkRHOr HKdeJR0asSizF5FkeCD6 LIKyl9p7Of75D07sP2Le dXA+YEHhsCS8kQR4 aS6fSdYlDeB1QGwuQ421 PmFvdWCkXsfsb7niu5am sEs0ReO9QTLipsSlmCwa QXU6u7CgQv61B54m IHdpZHRoPSIxNSUiIHZh nPzfrg9ocO2vSh8+PGNv wUQ1xUU3wL7hExGdDdL2 JUnwM883WkQrlDNn Ieass1ydv3dwiKy0JwXi JYNifoYxzIrwFBL7z4Dp Ii45H8BgoNhpg5BsVqw6 wq01eUDjf2N9iIP7 O3ZqWAWgpfrddVFgkLnc XL3jGBTahthnHPQjlH9z GYYmA7x0EmCaRjL5FTbl P2RuibA1ABVuwVYg DBmzNDR2A09yb8A9NKMz DZPwKJN0uWE6lV7fpSvs bjogbGVmdDsgdmVydGlj NDsdHGkhX115MXAo lOfiYUDtxP0zEDHheJTp yVlpWO9dAWNgudfnGfeB UkQsIFNBTUFOVEhBIFI8 C0BrAvd6DJQfgSja AF8aiXZzOKhcKo0hrQyn sJhnHU6uNUVszckpCCKq rH8tHLZgzLYuaZlhGB6o MLLihrmzf039MsHx WWZ9HBZopAZcV9SkpB6c JcFyYEAiWOPeG3UlcVZa LZqoY856SBtqKcS2KCCz mjXcX6PrKDYaoYwk NhF6h2Q4Yw0yMG9uYJ6l DCw2EN24JD57mPTif2I6 vEP3F9GlNCLbmknappho qNR7TETfAXZhvR32 zQBnHLsdXc9pm3F3y294 OXQhCMMdxA19Ow9ddXwb CIWclMHXbT0fmlbog2la cjogIzAwMDAwMDt0 FSo4TPYhsEnhXbHuXMC3 OoA1LIB3sGLqvE5viEgn hphvpR9lFmp+MzQgWWVh wxB7N5KoWzj2WAMw rOgkED2hwBLsRNftAh2m wSdunXjnQH0kVZTsjyxd OICbpP2kSUZyoQEsuDbo BT0tDAWnwgsex471 GxBzSEF8SYCzpJCoJ7In gJ6gIiYaNNWqBKCtN9Mh nQVvAGcaE610GKkgQjN9 ZUIxnlSxU6HrPXKf rJrzXiN9k2X0Uk5JHF6x oAF8B8QpNhg8KOKgbQjp FP3fxSAfOFpaJv1umSvq cVtaFM0aIRQeopfe TNRrrZ4iBHElpKTzrXgn VL6zCGMjytrdq434FaJh VPT8NLOjbMOsC4KpoC5q UpGmRLJbXSSyO9Ma aPVaRQekE550IAakIwQ9 LUYmlcLjS7PeMUBypFco BtO2a4H5Xe7PsPOxV5Ri C5t9N4AtPxcinBJ+ GW43NXVmNS76sCAqtLDg k6coyWo0IcBiXGTjEJT8 yQzcPEmch7XpKEDnT71l bUCzx1N6KHDowRto qCCiMbMphXT2aO3yYJfi ucfsx4nwcshjQzuxq0eu kp68rJ78C82gABixHSAx PSIzMCUiIHZhbGln bq1gyV3kAb3+PGNvbCB3 pSO5aK0wVvWtCeQ8RAry I877NtQpkSSiIbeos3xb d9cqrRy5PvTaQSMo yzMetOkaIXV1x7XgYd53 P97uDIxzKNUoTSVgSZUp IEWwpUloyw9vhO1oIi0+ XZ2rw8muqc01rM51 dHI+RIIuHIM8bNziTAhc HLUthT3oXMhiDaR7FBGy QjZdtH44fDUdKYopOr4p nZopdXibSA6oORJo wsree839FwWzf3yxBDSn iORwLTqeLWJ0E79vq2X1 BGUzGTYnZOC5rMS9tN7z bGlnbjogbGVmdDsg kuHfbApoBRnnDBvqN671 ENDmmFqnJdXaeSCdW0rp vdLYPW8oLfynnDL+PHRk DSR9jPtdBMpoPRKn rA4kTBXeL0v9IsXiKyN8 YIsrT4QrwtK2CWCurDFu WTTzjAXIcR9dljbpm8jm cjogIzAwMDAwMDt0 GNz2RSKygUjoHjDdHPB2 LcF3PFN9kLGwxF7apUfh nvkutI8eOvo+RklOOjwv dGQ+RLFkJPK8jIuh RXafLCOmdG8kZRGrU9x2 JyPeTcU3QMahF3BkqjW4 KIDptBKoZYBaxZZFkS3z hxefk4kmwfxzOoLk ORIvATd5OHb3ZREqzYgb JzOoDIU1YnK7VSQ1gAAt dW2ceWobkxckfO9xYga+ TVJOOjwvdGQ+PHRk RUX5tVvlEKicGYNvlQ2x FYFkK6r4EkUdDcE8BQjk J0WkqfQ5HOXkkZJxWLKu pMKJvB9mvanbo3ro ffuwHsFiKCHlUGv4RGe2 CQYssHsbSvNfYHL6SlI2 JAP5ePSfnF7hpUhuweur yR9tBlv+UXV3TPK7 UJ21ZF78W3LxMzlazOBe bGU+PHRhYmxlIHdpZHRo SGqxQLIlMiCpkQrkUR5r Ns9jJQJbZLQchOam cHNl (more content not included)... Normal [facility] XR Chest 2 Viewson XR Chest [...] Ochoa M.D. Transcribed by: LACY Technologist: ZAK Normal [facility] Consent for Treatmenton Consent for Treatment [id number] #1.00CD:127 [facility] Discharge Instructionson Discharge Instructions [id number] 2#1.00CD:127 [facility] ED Clinical Summaryon 2022 ED Clinical Summary [place] [id number] ED Clinical Summary Person Information [facility] Age[facility] 32 Years : 1990 Sex: Female Language: Syriac PCP: Joaquim Osuna DO Marital Status: Single Phone: [phone] Visit Id: Visit Reason: Sinus Pain/Congestion; Cough; [...] 10/19/2022 18:40:12 10/19/2022 18:40:12 10/19/2022 18:40:12 [address]: [address] [facility] [id number] PHYS DOC NOTES: MEDICAL INFORMATION: Prescriptions Given: New [facility]ations [facility], [address], [place] [id number], [phone] azithromycin (azithromycin 250 mg Tab 5-day Dose Pack (Z-Abe)) 1 Packets By Mouth As Directed for 5 Days. as directed on package labeling. Refills: 0. predniSONE (predniSONE 50 mg Tab) 1 Tablets By Mouth every day for 5 Days. Refills: 0. Medications to Continue with No Changes Other Medications acetaminophen-hydroc odone ([place] 325 mg-5 mg oral tablet) 1-2 tab(s) [...] Acute Bronchitis, Adult; Upper Respiratory Infection, Adult, Chcz-gl-Wbrv Follow up: With: Address: When: [address] [place] [address] [facility] (1) In 3 days 10/22/2022 Comments: Follow-up with your primary care provider in 3 to 5 days. If symptoms worsen, do not improve, or new symptoms arise please report back to emergency department for further evaluation. DIAGNOSIS: Bronchitis Normal [facility] ED Patient Education Noteon 10-19-2022 ED Patient [...] other clear broths. General instructions ? Take antu-bnn-hcyutvr and prescription medicines only as told by [...] not have soap and water, use hand stock feeder. ? Avoid touching your mouth, face, eyes, [...] get better within 7?10 days. ? Take zrye-kob-yewzlbu and prescription medicines only as told by your doctor. This information is not intended to replace advice given to you by your health care provider. Make sure you discuss any questions you have with your health care provider. Document Released: 03/21/2009 Document Revised: 10/11/2019 Document Reviewed: 05/26/2018 [employer] Patient Education ? 2020 [employer]. Pulmonary Medicine Acute Bronchitis, Adult Acute bronchitis [...] fe (more content not included)... Normal [facility] ED Patient Summaryon 023 ED Patient Summary [address] [address] Patient Discharge Instructions Person Information Name: SOFIA ARANGO Age: 32 Years Arrival Date: 10/19/2022 16:52:07 Discharge Diagnosis: Bronchitis Primary Care Physician: Joaquim Osuna DO Provider Information Primary Provider: Chucho Kwon DO Advanced Non Destructive Testing Specialist:None The exam and treatment you received in the Emergency Department were for an urgent problem and are not intended as complete care. It is important that you follow up with a doctor, nurse practitioner, or physician?s offset assistant press operator for ongoing care. If your symptoms become worse or you do not improve as expected and you are unable to reach your usual health care provider, you should return to the Emergency Department. We are available 24 hours a day. SOFIA ARANGO has been given the following list of patient education materials, prescriptions and follow-up instructions: Follow-up Instructions: With: Address: Edmundo: Joaquim Painter, [address] [place] [address] Business (1) In 3 days 10/22/2022 Comments: Follow-up [...] Acute Bronchitis, Adult; Upper Respiratory Infection, Adult, Lcoa-sx-Wlqi A MESSAGE TO ALL PATIENTS REGARDING OPIOIDS PRESCRIPTION OPIOIDS: WHAT YOU NEED TO KNOW Prescription opioids can be used to help relieve ledgaqox-fb-bzdsbm pain and are often prescribed following a [...] risk (more content not included)... Normal [facility] MICRO OTHER TESTSOrdered By: Tamar Banks on 10-19-2022 Rapid COV Int NEG Ctl Pass (10/19/22 5:12 PM) Normal [facility] [place] [facility] Rapid COV Int POS Ctl Pass (10/19/22 5:12 PM) Normal [facility] [place] [facility] SARS-CoV+SARS-CoV-2 (COVID-19) Ag IA.rapid Ql (Resp) Not Detected (10/19/22 5:12 PM) Normal Not Detected [facility] Rapid COVID Antigen ([facility]on 10-19-2022 Rapid COV Int NEG Ctl Pass Normal [facility] Comment on above: Performed By: #### 2 [id number] #### [facility] [address] [place] [address] Rapid COV Int POS Ctl Pass Normal [facility] Comment on above: Performed By: #### 2 [id number] #### [facility] [address] [place] [address] SARS-CoV+SARS-CoV-2 (COVID-19) Ag IA.rapid Ql (Resp) Not detected Normal Not Detected [facility] Comment on above: Result Comment: The [employer] Veritor? System for Rapid Detection of SARS-CoV-2 is [...] or revoked sooner. Performed By: #### 2 [id number] #### [facility] [address] [place] [address] ADMITTED TO INTENSIVE CARE UNIT FOR CONDITION OF INTEREST:FIND:PT: NO Normal [facility] Comment on above: Performed By: #### 2 [id number] #### [facility] [address] [place] [address] EMPLOYED IN A HEALTHCARE SETTING:FIND:PT: NO Normal [facility] Comment on above: Performed By: #### 2 [id number] #### [facility] [address] [place] [address] FIRST TEST FOR CONDITION OF INTEREST:FIND:PT: NO Normal [facility] Comment on above: Performed By: #### 2 [id number] #### [facility] [address] [place] [address] HAS SYMPTOMS RELATED TO CONDITION OF INTEREST:FIND:PT: YES Normal [facility] Comment on above: Performed By: #### 2 [id number] #### [facility] [address] [place] [address] HOSPITALIZED FOR CONDITION OF INTEREST:FIND:PT: NO Normal [facility] Comment on above: Performed By: #### 2 [id number] #### [facility] [address] [place] [address] STATUS:FIND:PT: NO Normal [facility] Comment on above: Performed By: #### 2 [id number] #### [facility] [address] [place] [address] RESIDES IN A [facility] CARE SETTING:FIND:PT: NO Normal [facility] Comment on above: Performed By: #### 2 [id number] #### [facility] [address] [place] [address] CBC AUTO DIFFon 10-17-2021 BASO # 0.0 103/ul Normal 0.0-0.1 [facility] Comment on above: Performed By: #### C BC #### [facility] [address] [place] [address] Dr. Marianne Mjoica Basophils/100 WBC (Bld) 0.4 % Normal 0.2-2.0 [facility] Comment on above: Performed By: #### C BC #### [facility] [address] [place] [address] Dr. Marianne Mojica EO # 0.1 103/ul Normal 0.0-0.7 [facility] Comment on above: Performed By: #### C BC #### [facility] [address] [place] [address] Dr. Marianne Mojica Eosinophils/100 WBC (Bld) 1.1 % Normal 0.9-7.0 [facility] Comment on above: Performed By: #### C BC #### [facility] [address] [place] [address] Dr. Marianne Mojica Erythrocyte distribution width (RBC) [Ratio] 13.2 % Normal 11.0-15.0 [facility] Comment on above: Performed By: #### C BC #### [facility] [address] [place] [address] Dr. Marianne Mojica Hematocrit (Bld) [Volume fraction] 33.5 % Critically low 36.0-48.0 [facility] Comment on above: Performed By: #### C BC #### [facility] [address] [place] [address] Dr. Marianne Mojica Hemoglobin (Bld) [Mass/Vol] 11.1 g/dL Critically low 12.0-16.0 [facility] Comment on above: Performed By: #### C BC #### [facility] [address] [place] [address] Dr. Marianne Mojica IG # 0.05 10e3/ul Critically high 0.00-0.03 [facility] Comment on above: Performed By: #### C BC #### [facility] [address] [place] [address] Dr. Marianne Mojica IG % 0.5 % Normal 0.0-0.5 [facility] Comment on above: Performed By: #### C BC #### [facility] [address] [place] [address] Dr. Marianne Mojica LYMPH # 2.8 103/ul Normal 1.2-3.8 [facility] Comment on above: Performed By: #### C BC #### [facility] [address] [place] [address] Dr. Marianne Mojica Lymphocytes/100 WBC (Bld) 29.9 % Normal 20.5-60.0 [facility] Comment on above: Performed By: #### C BC #### [facility] [address] [place] [address] Dr. Marianne Mojica MANUAL DIFF REQ NO Normal [facility] Comment on above: Performed By: #### C BC #### [facility] [address] [place] [address] Dr. Marianne Mojica MCH (RBC) [Entitic mass] 31.6 pg Normal 26.7-34.0 [facility] Comment on above: Performed By: #### C BC #### [facility] [address] [place] [address] Dr. Marianne Mojica MCHC (RBC) [Mass/Vol] 33.1 g/dL Normal 29.9-35.2 [facility] Comment on above: Performed By: #### C BC #### [facility] [address] [place] [address] Dr. Marianne Mojica MCV (RBC) [Entitic vol] 95.4 fL Normal 81.0-99.0 [facility] Comment on above: Performed By: #### C BC #### [facility] [address] [place] [address] Dr. Marianne Mojica MONO # 0.7 103/ul Normal 0.3-0.8 [facility] Comment on above: Performed By: #### C BC #### [facility] [address] [place] [address] Dr. Marianne Mojica Monocytes/100 WBC (Bld) 7.3 % Normal 1.7-12.0 [facility] Comment on above: Performed By: #### C BC #### [facility] [address] [place] [address] Dr. Marianne Mojica NEUT # 5.6 103/ul Normal 1.4-6.5 [facility] Comment on above: Performed By: #### C BC #### [facility] [address] [place] [address] Dr. Marianne Mojica Neutrophils/100 WBC (Bld) 60.8 % Normal 43.0-75.0 [facility] Comment on above: Performed By: #### C BC #### [facility] [address] [place] [address] Dr. Marianne Mojica Platelet mean volume (Bld) [Entitic vol] 9.8 fL Normal 9.5-13.5 [facility] Comment on above: Performed By: #### C BC #### [facility] [address] [place] [address] Dr. Marianne Mojica PLT 188 103/ul Normal 150-450 [facility] Comment on above: Performed By: #### C BC #### [facility] [address] [place] [address] Dr. Marianne Mojica RBC 3.51 106/ul Critically low 4.20-5.40 [facility] Comment on above: Performed By: #### C BC #### [facility] [address] [place] [address] Dr. Marianne Mojica WBC 9.2 103/ul Normal 4.0-11.0 [facility] Comment on above: Performed By: #### C BC #### [facility] [address] [place] [address] Dr. Marianne Mojica CBC AUTO DIFFon 10-15-2021 BASO # 0.0 103/ul Normal 0.0-0.1 [facility] Comment on above: Performed By: #### C BC #### [facility] [address] [place] [address] Dr. Marianne Mojica Basophils/100 WBC (Bld) 0.2 % Normal 0.2-2.0 [facility] Comment on above: Performed By: #### C BC #### [facility] [address] [place] [address] Dr. Marianne Mojica EO # 0.1 103/ul Normal 0.0-0.7 [facility] Comment on above: Performed By: #### C BC #### [facility] [address] [place] [address] Dr. Marianne Mojica Eosinophils/100 WBC (Bld) 0.6 % Critically low 0.9-7.0 [facility] Comment on above: Performed By: #### C BC #### [facility] [address] [place] [address] Dr. Marianne Mojica Erythrocyte distribution width (RBC) [Ratio] 13.2 % Normal 11.0-15.0 [facility] Comment on above: Performed By: #### C BC #### [facility] [address] [place] [address] Dr. Marianne Mojica Hematocrit (Bld) [Volume fraction] 37.2 % Normal 36.0-48.0 [facility] Comment on above: Performed By: #### C BC #### [facility] [address] [place] [address] Dr. Marianne Mojica Hemoglobin (Bld) [Mass/Vol] 12.2 g/dL Normal 12.0-16.0 [facility] Comment on above: Performed By: #### C BC #### [facility] [address] [place] [address] Dr. Marianne Mojica IG # 0.04 10e3/ul Critically high 0.00-0.03 [facility] Comment on above: Performed By: #### C BC #### [facility] [address] [place] [address] Dr. Marianne Mojica IG % 0.4 % Normal 0.0-0.5 [facility] Comment on above: Performed By: #### C BC #### [facility] [address] [place] [address] Dr. Marianne Mojica LYMPH # 2.6 103/ul Normal 1.2-3.8 [facility] Comment on above: Performed By: #### C BC #### [facility] [address] [place] [address] Dr. Marianne Mojica Lymphocytes/100 WBC (Bld) 27.0 % Normal 20.5-60.0 [facility] Comment on above: Performed By: #### C BC #### [facility] [address] [place] [address] Dr. Marianne Mojica MANUAL DIFF REQ NO Normal [facility] Comment on above: Performed By: #### C BC #### [facility] [address] [place] [address] Dr. Marianne Mojica MCH (RBC) [Entitic mass] 31.1 pg Normal 26.7-34.0 [facility] Comment on above: Performed By: #### C BC #### [facility] [address] [address] [address] Marianne Mojica MCHC (RBC) [Mass/Vol] 32.8 g/dL Normal 29.9-35.2 [facility] Comment on above: Performed By: #### C BC #### [facility] [address] [address] [address] Marianne Mojica MCV (RBC) [Entitic vol] 94.9 fL Normal 81.0-99.0 [facility] Comment on above: Performed By: #### C BC #### [facility] [address] [place] [address] Dr. Marianne Mojica MONO # 0.8 103/ul Normal 0.3-0.8 [facility] Comment on above: Performed By: #### C BC #### [facility] [address] [place] [address] Dr. Marianne Mojica Monocytes/100 WBC (Bld) 7.8 % Normal 1.7-12.0 [facility] Comment on above: Performed By: #### C BC #### [facility] [address] [place] [address] Dr. Marianne Mojica NEUT # 6.2 103/ul Normal 1.4-6.5 [facility] Comment on above: Performed By: #### C BC #### [facility] [address] [place] [address] Dr. Marianne Mojica Neutrophils/100 WBC (Bld) 64.0 % Normal 43.0-75.0 [facility] Comment on above: Performed By: #### C BC #### [facility] [address] [place] [address] Dr. Mraianne Mojica Platelet mean volume (Bld) [Entitic vol] 10.5 fL Normal 9.5-13.5 [facility] Comment on above: Performed By: #### C BC #### [facility] [address] [address] [address] Marianne Mojica PLT 210 103/ul Normal 150-450 [facility] Comment on above: Performed By: #### C BC #### [facility] [address] [address] [address] Marianne Mojica RBC 3.92 106/ul Critically low 4.20-5.40 [facility] Comment on above: Performed By: #### C BC #### [facility] [address] [place], [place] [address] Dr. Marianne Mojica WBC 9.7 103/ul Normal 4.0-11.0 [facility] Comment on above: Performed By: #### C BC #### [facility] [address] [address] [address] Marianne Mojica Covid-19 PCR ([facility])on 09-18 SARS-CoV-2 (COVID-19) RNA VIRA+probe Ql (Unsp spec) Not detected Normal NOT DETECTED [facility] Comment on above: Result Comment: When [...] for this test is supported by the [place] of Health and Human Service's declaration that [...] used). Performed By: #### R PRQ #### [facility] [address] [place], [place] [id number] Carlos Hull DRUG SCREEN RAPID (URINE)on 10-15-2021 AMP Negative Normal NEGATIVE [facility] Comment on above: Performed By: #### R PRQ #### [facility] [address] [id number] Carlos Hull BAR Negative Normal NEGATIVE [facility] Comment on above: Performed By: #### R PRQ #### [facility] [address] [place] [address] Carlos Della BUP Negative Normal NEGATIVE [facility] Comment on above: Performed By: #### R PRQ #### [facility] [address] [place] [address] Carlos Della BZO Negative Normal NEGATIVE [facility] Comment on above: Performed By: #### R PRQ #### [facility] [address] [place] [address] Carlos Della BREE Negative Normal NEGATIVE [facility] Comment on above: Performed By: #### R PRQ #### [facility] [address] [place] [address] Carlos Della CUT-OFFS SEE BELOW Normal [facility] Comment on above: Result Comment: [...] ng/mL Performed By: #### R PRQ #### [facility] [address] [place] [address] DRUG CUT HEADER DRUG CLASS TEST SYSTEM CUT-OFF CONCENTRATIONS ARE FOLLOWS: Normal [facility] Comment on above: Performed By: #### R PRQ #### [facility] [address] [place] [address] Carlos Della mAMP Negative Normal NEGATIVE [facility] Comment on above: Performed By: #### R PRQ #### [facility] [address] [place] [address] Carlos Della MTD Negative Normal NEGATIVE [facility] Comment on above: Performed By: #### R PRQ #### [facility] [address] [address] Carlos Della OPI Negative Normal NEGATIVE [facility] Comment on above: Performed By: #### R PRQ #### [facility] [address] [address] Carlos Della OXY Negative Normal NEGATIVE [facility] Comment on above: Performed By: #### R PRQ #### [facility] [address] [address] Carlos Della PCP Negative Normal NEGATIVE [facility] Comment on above: Performed By: #### R PRQ #### [facility] [address] [place] [address] Carlos Della PPX Negative Normal NEGATIVE [facility] Comment on above: Performed By: #### R PRQ #### [facility] [address] [place] [address] Carlos Della TCA Negative Normal NEGATIVE [facility] Comment on above: Performed By: #### R PRQ #### [facility] [address] [place] [address] Carlos Della THC Negative Normal NEGATIVE [facility] Comment on above: Performed By: #### R PRQ #### [facility] [address] [place] [address] Carlos Della TYPE AND SCREENon 10-15-2021 TYPE AND SCREEN Negative Normal [facility] Comment on above: Performed By: #### R PRQ #### [facility] [address] [place] [address] Carlos Della US PREG BIOPHY W NON STRESSo n [...] AYDE MIN Date: 2021-10-07 13:52 Normal [facility] CHLAMYDIA/GONOCOCCUS VIRA (SW AB/URINE/PAPon 10-06-2021 Chlamydia trachomatis, VIRA Negative Normal Negative [facility] Comment on above: Performed By: #### C T/NGNA #### [facility] [address] [place] [address] Dr. Marianne Mojica Neisseria gonorrhoeae, VIRA Negative Normal Negative [facility] Comment on above: Performed By: #### C T/NGNA #### [facility] [address] [address] [address] Marianne Mojica VAGINITIS/VAGINOSIS DNA PROB Travon 10-04-2021 Tory species Negative Normal Negative [facility] Comment on above: Performed By: #### R UBIGG #### [facility] [address] [place] [address] Carlos Della Gardnerella vaginalis Negative Normal Negative [facility] Comment on above: Performed By: #### R UBIGG #### [facility] [address] [place] [address] Carlos Della Trichomonas vaginalis Negative Normal Negative [facility] Comment on above: Performed By: #### R UBIGG #### [facility] [address] [place] [address] Carlos Hull GROUP B STREP CULTUREon 09-16 S. agalactiae Ag Ql (Unsp spec) Culture Observations: NEGATIVE FOR GROUP B STREPTOCOCCUS. Normal [facility] Comment on above: Performed By: #### G BSCX #### [facility] [address] [place] [address] Dr. Marianne Mojica US PREG PLACENTAon US [...] AYDE MIN Date: 2021-07-29 12:05 Normal [facility] GLUCOSE - 1HRon 07-11-2021 Glucose [Mass/Vol] 71 mg/dL Critically low 74-106 [facility] Comment on above: Performed By: #### R UBIGG #### [facility] [address] [place], [place] [id number] Carlos Della HEMOGRAM AND PLATELon 2020 Hematocrit (Bld) [Volume fraction] 36.2 % Normal 36.0-48.0 [facility] Comment on above: Performed By: #### R UBIGG #### [facility] [address] [place] [address] Carlos Della Hemoglobin (Bld) [Mass/Vol] 11.8 g/dL Critically low 12.0-16.0 [facility] Comment on above: Performed By: #### R UBIGG #### [facility] [address] [place] [address] Carlos Della MCH (RBC) [Entitic mass] 31.4 pg Normal 26.7-34.0 [facility] Comment on above: Performed By: #### R UBIGG #### [facility] [address] [place] [address] Carlosgaurang Wicken MCHC (RBC) [Mass/Vol] 32.6 g/dL Normal 29.9-35.2 [facility] Comment on above: Performed By: #### R UBIGG #### [facility] [address] [place] [address] Carlos Della MCV (RBC) [Entitic vol] 96.3 fL Normal 81.0-99.0 [facility] Comment on above: Performed By: #### R UBIGG #### [facility] [address] [place] [address] Carlos Della PLT 234 103/ul Normal 150-450 [facility] Comment on above: Performed By: #### R UBIGG #### [facility] [address] [place], [place] [id number] Carlos Della RBC 3.76 106/ul Critically low 4.20-5.40 [facility] Comment on above: Performed By: #### R UBIGG #### [facility] [address] [place], [place] [address] Carlos Hull WBC 9.1 103/ul Normal 4.0-11.0 [facility] Comment on above: Performed By: #### R UBIGG #### [facility] [address] [place], [place] [address] Carlos Hull US PREG ANATOMY SINGLEon US [...] 59th percentile by ultrasound and expected FL/AC: 0.356871 FL/BPD: 0.685499 HC/AC: 1.494370 GESTATIONAL AGE: Age by EDC: 20 weeks, 0 days NELA by EDC: 10/22/2021 Age by current US: 20 weeks, 0 days NELA by current US: 10/22/2021 IMPRESSION: 1. Single live intrauterine with growth detailed above. 2. Low-lying fundal/posterior placenta. Electronically authenticated by: AYDE MIN Date: 2021-06-04 12:07 Normal [facility] AFP MATERNAL FOR SPINA BIFID Aon 05-21-2021 AFP MoM 0.95 Normal [facility] Comment on above: Performed By: #### A FPMAT #### [facility] [address] [address] Carlos Hull AFP Value 37.7 ng/mL Normal [facility] Comment on above: Performed By: #### A FPMAT #### [facility] [address] [address] Carlos Hull AFP, Serum for Spina Bifida Report Normal [facility] Comment on above: Performed By: #### A FPMAT #### [facility] [address] [address] Carlos Hull Comment Comment Normal [facility] Comment on above: Result Comment: Shekhar Lincoln, Ph.D., [facility] Director . References: Available Upon Request. . Multiples Of Median Cutoffs For AFP Elevations Sommer 2.5 Black 2.8 IDD 2.0 Twins 4.5 Abbreviation Definitions IDD - Insulin Dep Diabetes OSBR - Open Spina Bifida Risk . For further inquiries contact [employer] at [phone]. Performed By: #### A FPMAT #### [facility] [address] [address] Carlos Della Gest Age Collection Date 17.6 weeks Normal [facility] Comment on above: Performed By: #### A FPMAT #### [facility] [address] [address] Carlos Hull Gestat, Age Based on Ultrasound Normal [facility] Comment on above: Result Comment: 11:0 on 04/02/2021 Recalculations are not recommended when gestational dating by LMP and ultrasound are within 10 days. Performed By: #### A FPMAT #### [facility] [address] [address] Carlos Wicken Insulin Dep Diabetes No Normal [facility] Comment on above: Performed By: #### A FPMAT #### [facility] [address] [address] Carlos Hull Interpretation Comment Normal [facility] Comment on above: Result Comment: Inte rpretation: [...] Customer Services to discuss available options. The [place] [employer] recommends amniocentesis be offered to women age 35 and older. Performed By: #### A FPMAT #### [facility] [address] [place] [address] Carlos Della [age] Normal [facility] Comment on above: Performed By: #### A FPMAT #### [facility] [address] [place] [address] Carlos Della Multiple Gestation No Normal [facility] Comment on above: Performed By: #### A FPMAT #### [facility] [address] [place] [address] Carlos Della OS[place] [phone] Normal [facility] Comment on above: Performed By: #### A FPMAT #### [facility] [address] [place] [address] Carlos Della PDF . Normal [facility] Comment on above: Performed By: #### A FPMAT #### [facility] [address] [place] [address] Carlos Della Race Normal [facility] Comment on above: Performed By: #### A FPMAT #### [facility] [address] [place] [address] Carlos Della Test Results: Negative Normal [facility] Comment on above: Performed By: #### A FPMAT #### [facility] [address] [place] [address] Carlos Della Cult,Urineon 05-01-2021 Cult,Urine Specimen Description .Random Urine Special Requests NOT REPORTED Culture NO GROWTH Report Status FINAL 05/01/2021 Normal [facility] Comment on above: Performed By: #### U #### [facility] [address] [place], [place] [id number] [employer]: Sekou Fraser MD [facility] [address] [place] [address] [employer]: Campos Chandra MD US PREG PLACENTAon US [...] by: YURIY WISE Date: 2021-04-30 23:35 Normal [facility] ABO/RHOrdered By: Venecia marinelli on 04-30-2021 ABO/Rh Positive [facility] Work Phone: [facility] Work Phone: ABO/Rh(D)on 04-30-2021 ABO/Rh(D) Positive Normal [facility] Comment on above: Performed By: #### A [facility] #### [facility] [address] [place] [address] [employer]: Campos Chandra MD CBC Auto DifferentialOrdered By: Venecia Patterson on 04-30-2021 Absolute Eos # 0.00 [facility] Work Phone: Absolute Immature Granulocyte NOT REPORTED [facility] Work Phone: Absolute Lymph # 2.70 [facility] Work Phone: Absolute [place] # 0.50 [facility] Work Phone: Basophils (Bld) [#/Vol] 0.00 10*3/uL [facility] Work Phone: Basophils/100 WBC (Bld) 0 % 0 - 2 % [employer] Work Phone: Differential Type YES [employer] Work Phone: Eosinophils/100 WBC (Bld) 0 % 0 - 5 % [facility] Work Phone: Hematocrit (Bld) [Volume fraction] 36.7 % 36 - 46 % [facility] Work Phone: Hemoglobin.gastrointest inal spec 1 Ql (Stl) 12.5 g/dL 12.0 - 16.0 g/dL [employer] Phone: Immature Granulocytes NOT REPORTED 0 % [employer] Work Phone: Lymphocytes/100 WBC (Bld) 30 % 15 - 40 % [facility] Work Phone: MCH (RBC) [Entitic mass] 30.6 pg 26 - 34 pg [employer] Phone: MCHC (RBC) [Mass/Vol] 34.2 g/dL 31 - 37 g/dL [employer] Work Phone: MCV (RBC) [Entitic vol] 89.7 fL 80 - 100 fL [employer] Phone: Monocytes/100 WBC (Bld) 5 % 4 - 8 % [employer] Work Phone: NRBC Automated NOT REPORTED per 100 WBC [employer] Work Phone: Platelet distribution width (Bld) [Ratio] 12.8 % 12.1 - 15.2 % [employer] Phone: Platelet Estimate NOT REPORTED [employer] Phone: Platelet mean volume (Bld) [Entitic vol] NOT REPORTED 6.0 - 12.0 fL [employer] Phone: Platelets (Bld) [#/Vol] 271 10*3/uL [employer] Phone: RBC (Bld) [#/Vol] 4.09 10*6/uL 4.0 - 5.2 m/uL [employer] Phone: RBC (Bld) [#/Vol] NOT REPORTED [employer] Phone: Segmented neutrophils/100 WBC (Bld) 65 % 47 - 75 % [employer] Phone: Segs Absolute 5[employer]70 [employer] Work Phone: WBC (Bld) [#/Vol] 8.9 10*3/uL [employer] Phone: WBC (Bld) [#/Vol] NOT REPORTED [employer] Phone: [employer] Phone: CBC with Diffon 04-30-2021 Abs. Basophil 0.00 k/uL Normal 0.0-0.2 [facility] Comment on above: Performed By: #### M Bienvenido CMPX, CDP #### [facility] [address] [place] [address] [employer]: Campos Chandra MD Abs.Neutrophil (Seg) 5.70 k/uL Normal 2.5-7.0 [facility] Comment on above: Performed By: #### M Bienvenido, CMPX, CDP #### [facility] [address] [place] [address] [employer]: Campos Chandra MD Auto Diff Performed YES Normal [facility] Comment on above: Performed By: #### M G, CMPX, CDP #### [facility] [address] [place] [address] [employer]: Campos Chandra MD Basophils/100 WBC (Bld) 0 % Normal 0-2 [facility] Comment on above: Performed By: #### M Bienvenido CMPX, CDP #### [facility] [address] [place], [place] [id number] [employer]: Campos Chandra MD Eosinophils (Bld) [#/Vol] 0.00 10*3/uL Normal 0.0-0.4 [facility] Comment on above: Performed By: #### Jaime Faria CMPX, CDP #### [facility] [address] [place] [address] [employer]: Campos Chandra MD Eosinophils/100 WBC (Bld) 0 % Normal 0-5 [facility] Comment on above: Performed By: #### Jaime Faria CMPX, CDP #### [facility] [address] [place] [address] [employer]: Campos Chandra MD Erythrocyte distribution width (RBC) [Ratio] 12.8 % Normal 12.1-15.2 [facility] Comment on above: Performed By: #### Jaime Faria CMPX, CDP #### [facility] [facility] [address] [id number] [employer]: Campos Chandra MD Hematocrit (Bld) [Volume fraction] 36.7 % Normal 36-46 [facility] Comment on above: Performed By: #### Jaime Faria CMPX, CDP #### [facility] [address] [place] [address] [employer]: Campos Chandra MD Hemoglobin (Bld) [Mass/Vol] 12.5 g/dL Normal 12.0-16.0 [facility] Comment on above: Performed By: #### Jaime Faria CMPX, CDP #### [facility] [address] [place], [place] [id number] [employer]: Campos Chandra MD Lymphocytes (Bld) [#/Vol] 2.70 10*3/uL Normal 1.0-4.8 [facility] Comment on above: Performed By: #### Jaime Faria CMPX, CDP #### [facility] [address] [place] [address] [employer]: Campos Chandra MD Lymphocytes/100 WBC (Bld) 30 % Normal 15-40 [facility] Comment on above: Performed By: #### Jaime Faria CMPX, CDP #### [facility] [address] [id number] [employer]: Campos Chandra MD MCH (RBC) [Entitic mass] 30.6 pg Normal 26-34 [facility] Comment on above: Performed By: #### Jaime Faria CMPX, CDP #### [facility] [address] [id number] [employer]: Campos Chandra MD MCHC (RBC) [Mass/Vol] 34.2 g/dL Normal 31-37 [facility] Comment on above: Performed By: #### Jaime Faria CMPX, CDP #### [facility] [address] [place] [address] [employer]: Campos Chandra MD MCV (RBC) [Entitic vol] 89.7 fL Normal 80-100 [facility] Comment on above: Performed By: #### Jaime Faria CMPX, CDP #### [facility] [address] [place] [address] [employer]: Campos Chandra MD Monocytes (Bld) [#/Vol] 0.50 10*3/uL Normal 0.0-1.0 [facility] Comment on above: Performed By: #### Jaime Faria CMPX, CDP #### [facility] [address] [place] [address] [employer]: Campos Chandra MD Monocytes/100 WBC (Bld) 5 % Normal 4-8 [facility] Comment on above: Performed By: #### M Bienvenido, CMPX, CDP #### [facility] [address] [place] [address] [employer]: Campos Chandra MD Neutrophil (Seg) 65 % Normal 47-75 [facility] Comment on above: Performed By: #### M Bienvenido, CMPX, CDP #### [facility] [address] [id number] [employer]: Campos Chandra MD Platelets (Bld) [#/Vol] 271 10*3/uL Normal 140-450 [facility] Comment on above: Performed By: #### Jaime Faria, CMPX, CDP #### [facility] [address] [id number] [employer]: Campos Chandra MD RBC (Bld) [#/Vol] 4.09 10*6/uL Normal 4.0-5.2 [facility] Comment on above: Performed By: #### Jaime Faria CMPX, CDP #### [facility] [address] [place] [address] [employer]: Campos Chandra MD WBC (Bld) [#/Vol] 8.9 10*3/uL Normal 3.5-11.0 [facility] Comment on above: Performed By: #### Jaime Faria CMPX, CDP #### [facility] [address] [place] [address] [employer]: Campos Chandra MD Abs.Imm.Granulocyte NOT REPORTED Normal 0.00-0.30 [facility] Comment on above: Performed By: #### M Bienvenido, CMPX, CDP #### [facility] [address] [place] [address] [employer]: Campos Chandra MD Immature Granulocyte NOT REPORTED Normal 0 [facility] Comment on above: Performed By: #### M G, CMPX, CDP #### [facility] [address] [place] [address] [employer]: Campos Chandra MD MPV NOT REPORTED Normal 6.0-12.0 [facility] Comment on above: Performed By: #### M Bienvenido, CMPX, CDP #### [facility] [address] [place] [address] [employer]: Campos Chandra MD NRBC Automated NOT REPORTED Normal [facility] Comment on above: Performed By: #### M Bienvenido, CMPX, CDP #### [facility] [address] [place], [place] [phone] [employer]: Campos Chandra MD Platelet Estimate NOT REPORTED Normal [facility] Comment on above: Performed By: #### M Bienvenido, CMPX, CDP #### [facility] [address] [place], [place] [phone] [employer]: Campos Chandra MD RBC morphology finding Nom (Bld) NOT REPORTED Normal [facility] Comment on above: Performed By: #### M Bienvenido CMPX, CDP #### [facility] [address] [place], [place] [phone] [employer]: Campos Chandra MD WBC Morphology NOT REPORTED Normal [facility] Comment on above: Performed By: #### Jaime Faria CMPX, CDP #### [facility] [address] [place], [place] [phone] [employer]: Campos Chandra MD Comp Metabolic Pr/rfx MGon 0 - Potassium [Moles/Vol] 3.5 mmol/L Low 3.7-5.3 [facility] Comment on above: Performed By: #### M Bienvenido, CMPX, CDP #### [facility] [address] [place] [address] [employer]: Campos Chanrda MD (cont.) Normal [facility] Comment on above: Result Comment: Aver age GFR for 30-39 years old: 107 mL/min/1.73sq m Chronic Kidney Disease: <60 mL/min/1.73sq m Kidney failure: <15 mL/min/1.73sq m eGFR calculated using average adult body mass. Additional eGFR calculator available at: http://www.[employer]/multiple_crcl_2011.htm Performed By: #### M Bienvenido, CMPX, CDP #### [facility] [address] [place] [address] [employer]: Campos Chandra MD Albumin [Mass/Vol] 3.8 g/dL Normal 3.5-5.2 [facility] Comment on above: Performed By: #### Jaime Faria CMPX, CDP #### [facility] [address] [place] [address] [employer]: Campos Chandra MD Alkaline Phos 56 U/L Normal 35-104 [facility] Comment on above: Performed By: #### Jaime Faria CMPX, CDP #### [facility] [address] [place] [address] [employer]: Campos Chandra MD ALT [Catalytic activity/Vol] 13 U/L Normal 5-33 [facility] Comment on above: Performed By: #### Jaime Faria CMPX, CDP #### [facility] [address] [place] [address] [employer]: Campos Chandra MD Anion gap [Moles/Vol] 10 mmol/L Normal 9-17 [facility] Comment on above: Performed By: #### M Bienvenido, CMPX, CDP #### [facility] [address] [place], [place] [phone] [employer]: Campos Chandra MD AST [Catalytic activity/Vol] 16 U/L Normal <32 [facility] Comment on above: Performed By: #### Jaime Faria, CMPX, CDP #### [facility] [address] [place] [address] [employer]: Campos Chandra MD Bilirubin [Mass/Vol] 0.23 mg/dL Low 0.30-1.20 [facility] Comment on above: Performed By: #### M G, CMPX, CDP #### [facility] [address] [place], [place] [phone] [employer]: Campos Chandra MD BUN/CRE Ratio 18 Normal 9-20 [facility] Comment on above: Performed By: #### M Bienvenido, CMPX, CDP #### [facility] [address] [place], [place] [phone] [employer]: Campos Chandra MD Calcium [Mass/Vol] 9.2 mg/dL Normal 8.6-10.4 [facility] Comment on above: Performed By: #### Jaime Faria CMPX, CDP #### [facility] [address] [place], [place] [phone] [employer]: Campos Chandra MD Chloride [Moles/Vol] 105 mmol/L Normal 98-107 [facility] Comment on above: Performed By: #### M Bienvenido CMPX, CDP #### [facility] [address] [place] [address] [employer]: Campos Chandra MD CO2 [Moles/Vol] 23 mmol/L Normal 20-31 [facility] Comment on above: Performed By: #### M Bienvenido, CMPX, CDP #### [facility] [address] [place] [address] [employer]: Campos Chandra MD Creatinine [Mass/Vol] 0.44 mg/dL Low 0.50-0.90 [facility] Comment on above: Performed By: #### M Bienvenido, CMPX, CDP #### [facility] [address], [place] [id number] [employer]: Campos Chandra MD GFR, Amer >60 Normal >60 [facility] Comment on above: Performed By: #### M Bienvenido, CMPX, CDP #### [facility] [address], [place] [phone] [employer]: Campos Chandra MD GFR,non Amer >60 Normal >60 [facility] Comment on above: Performed By: #### M Bienvenido, CMPX, CDP #### [facility] [address], [place] [phone] [employer]: Campos Chandra MD Glucose [Mass/Vol] 90 mg/dL Normal 70-99 [facility] Comment on above: Performed By: #### Jaime Faria CMPX, CDP #### [facility] [address], [place] [phone] [employer]: Campos Chandra MD Protein [Mass/Vol] 7.0 g/dL Normal 6.4-8.3 [facility] Comment on above: Performed By: #### Jaime Faria CMPX, CDP #### [facility] [address], [place] [phone] [employer]: Campos Chandra MD Sodium [Moles/Vol] 138 mmol/L Normal 135-144 [facility] Comment on above: Performed By: #### Jaime Faria CMPX, CDP #### [facility] [address], [place] [phone] [employer]: Campos Chandra MD Urea nitrogen [Mass/Vol] 8 mg/dL Normal 6-20 [facility] Comment on above: Performed By: #### M Bienvenido, CMPX, CDP #### [facility] [address], [place] [phone] [employer]: Campos Chandra MD Albumin/Glob Ratio NOT REPORTED Normal 1.0-2.5 [facility] Comment on above: Performed By: #### M Bienvenido, CMPX, CDP #### [facility] [address] [place] [address] [employer]: Campos Chandra MD Staging: NOT REPORTED Normal [facility] Comment on above: Performed By: #### M G, CMPX, CDP #### [facility] [address] [place] [address] [employer]: Campos Chandra MD Comprehensive Metabolic Pane l w/ Reflex to MGOrdered By: Venecia Patterson on 04-30-2021 Albumin [Mass/Vol] 3.8 g/dL 3.5 - 5.2 g/dL [employer] Phone: Albumin/Globulin Ratio NOT REPORTED [employer] Phone: ALP (Bld) [Catalytic activity/Vol] 56 U/L 35 - 104 U/L [facility] Phone: ALT [Catalytic activity/Vol] 13 U/L 5 - 33 U/L [facility] Phone: Anion gap [Moles/Vol] 10 mmol/L 9 - 17 mmol/L [employer] Phone: AST [Catalytic activity/Vol] 16 U/L <32 [employer] Phone: Bilirubin [Mass/Vol] 0.23 mg/dL Low 0.30 - 1.20 mg/dL [employer] Phone: Calcium [Mass/Vol] 9.2 mg/dL 8.6 - 10. 4 mg/dL [employer] Phone: Chloride [Moles/Vol] 105 mmol/L 98 - 10 7 mmol/L [employer] Phone: CO2 [Moles/Vol] 23 mmol/L 20 - 31 mmol/L [employer] Phone: Creatinine [Mass/Vol] 0.44 mg/dL Low 0.50 - 0.90 mg/dL [employer] Phone: Free PSA/Total PSA [Mass fraction] 7.0 g/dL 6.4 - 8.3 g/dL [employer] Phone: GFR >60 >60 mL/min [employer] Phone: GFR Non- >60 >60 mL/min [employer] Phone: GFR/1.73 sq M.predicted MDRD (S/P/Bld) [Vol rate/Area] [employer] Phone: Comment on above: Average GFR for 30-3 9 years old: 107 mL/min/1.73sq m Chronic Kidney Disease: <60 mL/min/1.73sq m Kidney failure: <15 mL/min/1.73sq m eGFR calculated using average adult body mass. Additional eGFR calculator available at: http://www.[employer]/multiple_crcl_2012.htm GFR/1.73 sq M.predicted MDRD (S/P/Bld) [Vol rate/Area] NOT REPORTED [employer] Phone: Glucose [Mass/Vol] 90 mg/dL 70 - 99 mg/dL [facility] [employer] Phone: Interpretation and review of laboratory results Abnormal [facility] Phone: Potassium [Moles/Vol] 3.5 mmol/L Low 3.7 - 5.3 mmol/L [facility] Phone: Sodium [Moles/Vol] 138 mmol/L 135 - 144 mmol/L [facility] Phone: Urea nitrogen (BldV) [Mass/Vol] 8 mg/dL 6 - 20 mg/dL [employer] Phone: Urea nitrogen/Creatinine (Bld) [Mass ratio] [address] [facility] Phone: [employer] Phone: Drug Scr, Abuse, Uron 07-15- 2021 Amphetamine(s),Ur Negative Normal NEG [facility] Comment on above: Result Comment: (Positive cutoff 500 ng/mL) Performed By: #### U MICAO, UA, DIOGENES #### [facility] [address] [place] [address] [employer]: Campos Chandra MD Barbiturate(s),Ur Negative Normal NEG [facility] Comment on above: Result Comment: (Positive cutoff 200 ng/mL) Performed By: #### U MICAO, UA, DIOGENES #### [facility] [address] [place] [address] [employer]: Campos Chandra MD Benzodiazepine(s) Negative Normal NEG [facility] Comment on above: Result Comment: (Positive cutoff 150 ng/mL) Performed By: #### U MICAO, UA, DIOGENES #### [facility] [address] [place] [address] [employer]: Campos Chandra MD Cannabinoid(s),Ur Negative Normal NEG [facility] Comment on above: Result Comment: (Positive cutoff 50 ng/mL) Performed By: #### U MICAO, UA, DIOGENES #### [facility] [address] [place] [address] [employer]: Campos Chandra MD Cocaine Metabolite Negative Normal [facility] Comment on above: Result Comment: (Positive cutoff 150 ng/mL) Performed By: #### U MICAO, UA, DIOGENES #### [facility] [address] [place] [address] [employer]: Campos Chandra MD Methadone Ql (U) Negative Normal NEG [facility] Comment on above: Result Comment: (Positive cutoff 200 ng/mL) Performed By: #### U MICAO, UA, DIOGENES #### [facility] [address], [place] [phone] [employer]: Campos Chandra MD Methamphetamine, Ur Negative Normal NEG [facility] Comment on above: Result Comment: (Positive cutoff 500 ng/mL) Performed By: #### U MICAO, UA, DIOGENES #### [facility] [address], [place] [phone] [employer]: Campos Chandra MD Opiate(s), Ur Negative Normal NEG [facility] Comment on above: Result Comment: (Positive cutoff 100 ng/mL) Performed By: #### U MICAO, UA, DIOGENES #### [facility] [address], [place] [phone] [employer]: Campos Chandra MD Oxycodone, Urine Negative Normal NEG [facility] Comment on above: Result Comment: (Positive cutoff 100 ng/mL) Performed By: #### U MICAO, UA, DIOGENES #### [facility] [address] [phone] [employer]: Campos Chandra MD Phencyclidine, Ur Negative Normal NEG [facility] Comment on above: Result Comment: (Positive cutoff 25 ng/mL) Performed By: #### U MICAO, UA, DIOGENES #### [facility] [address] [place] [address] [employer]: Campos Chandra MD Propoxyphene,Urine Negative Normal [facility] Comment on above: Result Comment: (Positive cutoff 300 ng/mL) Performed By: #### U MICAO, UA, DIOGENES #### [facility] [address] [place] [address] [employer]: Campos Chandra MD Tricyclic antidepressants Screen Ql (U) Negative Normal NEG [facility] Comment on above: Result Comment: (Positive cutoff 300 ng/mL) Drug screen results are to be used for medical purposes only. All positive results are unconfirmed. Testing for employment or legal uses should be sent to a reference laboratory for confirmation. Performed By: #### U MICAO, UA, DIOGENES #### [facility] [address], [place] [phone] [employer]: Campos Chandra MD Buprenorphrine, Ur NOT REPORTED Normal NEG [facility] Comment on above: Performed By: #### U MICAO, UA, DIOGENES #### [facility] [address], [place] [phone] [employer]: Campos Chandra MD Interpretive Info NOT REPORTED Normal [facility] Comment on above: Performed By: #### U MICAO, UA, DIOGENES #### [facility] [address], [place] [phone] [employer]: Campos Chandra MD MDMA, Urine NOT REPORTED Normal NEG [facility] Comment on above: Performed By: #### U MICAO, UA, DIOGENES #### [facility] [address] [place] [address] [employer]: Campos Chandra MD Drug screen multi urineOrder ed By: Venecia Patterson on 04-30-2021 Amphetamine Screen, Ur Negative NEGATIVE [facility] [employer] Work Phone: Comment on above: (Positive cutoff 500 ng/mL) Barbiturate Screen, Ur Negative NEGATIVE [facility] Work Phone: Comment on above: (Positive cutoff 200 ng/mL) Benzodiazepine Screen, Urine Negative NEGATIVE [facility] Work Phone: Comment on above: (Positive cutoff 150 ng/mL) Buprenorphine Urine NOT REPORTED NEGATIVE [facility] Work Phone: Cannabinoid Scrn, Ur Negative NEGATIVE [facility] [employer] Work Phone: Comment on above: (Positive cutoff 50 ng/mL) Cocaine Metabolite, Urine Negative NEGATIVE [facility] Work Phone: Comment on above: (Positive cutoff 150 ng/mL) MDMA, Urine NOT REPORTED NEGATIVE [facility] Work Phone: Methadone Screen, Urine Negative NEGATIVE [facility] [employer] Work Phone: Comment on above: (Positive cutoff 200 ng/mL) Methamphetamine, Urine Negative NEGATIVE [facility] Work Phone: Comment on above: (Positive cutoff 500 ng/mL) Opiates, Urine Negative NEGATIVE [facility] Work Phone: Comment on above: (Positive cutoff 100 ng/mL) Oxycodone Screen, Ur Negative NEGATIVE [facility] Work Phone: Comment on above: (Positive cutoff 100 ng/mL) Phencyclidine, Urine Negative NEGATIVE [facility] Work Phone: Comment on above: (Positive cutoff 25 ng/mL) Propoxyphene, Urine Negative NEGATIVE [facility] Work Phone: Comment on above: (Positive cutoff 300 ng/mL) Test Information NOT REPORTED [facility] Work Phone: Tricyclic Antidepressants, Urine Negative NEGATIVE [facility] Work Phone: Comment on above: (Positive cutoff 300 ng/mL) Drug screen results are to be used for medical purposes only. All positive results are unconfirmed. Testing for employment or legal uses should be sent to a reference laboratory for confirmation. [facility] [employer] Phone: HCG, Quanton 04-30-2021 HCG, Quant [id number] IU/L High <5 [facility] Comment on above: Result Comment: Non-preg [...] liver. Performed By: #### B HCG #### [facility] [address] [place] [address] [employer]: Campos Chandra MD Magnesiumon 04-30-2021 Magnesium [Mass/Vol] 1.8 mg/dL Normal 1.6-2.6 [facility] Comment on above: Performed By: #### M G, CMPX, CDP #### [facility] [address] [place] [address] [employer]: Campos Chandra MD MagnesiumOrdered By: Venecia liu on 04-30-2021 Magnesium [Mass/Vol] 1.8 mg/dL 1.6 - 2 .6 mg/dL [facility] [employer] Work Phone: [facility] [employer] Work Phone: Microscopic UrinalysisOrdere d By: Venecia Patterson on 04-30-2021 - [facility] Work Phone: Amorphous, UA NOT REPORTED None [facility] Work Phone: Bacteria, UA NOT REPORTED None [facility] Work Phone: Casts UA NOT REPORTED /LPF [facility] Work Phone: Crystals, UA NOT REPORTED None /HPF [facility] Work Phone: Epithelial Cells UA NOT REPORTED /HPF [facility] Work Phone: Mucus, UA NOT REPORTED None [facility] Work Phone: Other Observations UA NOT REPORTED NOT REQ. [facility] Work Phone: RBC, UA LOADED [facility] Work Phone: Renal Epithelial, UA NOT REPORTED 0 /HPF [facility] Work Phone: Trichomonas, UA NOT REPORTED None [facility] Work Phone: WBC, UA 2 TO 5 0 /HPF [facility] Work Phone: Yeast, UA NOT REPORTED None [facility] Work Phone: [facility] Work Phone: Urinalysis, Routineon 2020 Bilirubin, SemiQt,Ur Negative Normal NEG [facility] Comment on above: Performed By: #### U MICAO, UA, DIOGENES #### [facility] [address], [place] [phone] [employer]: Campos Chandra MD Blood, Urine 3+ Abnormal NEG [facility] Comment on above: Performed By: #### U MICAO, UA, DIOGENES #### [facility] [address], [place] [phone] [employer]: Campos Chandra MD Clarity (U) CLOUDY Abnormal CLEAR [facility] Comment on above: Performed By: #### U MICAO, UA, DIOGENES #### [facility] [address], [place] [phone] [employer]: Campos Chandra MD Color (U) YELLOW Normal YEL [facility] Comment on above: Performed By: #### U MICAO, UA, DIOGENES #### [facility] [address], [place] [phone] [employer]: Campos Chandra MD Comment Normal [facility] Comment on above: Performed By: #### U MICAO, UA, DIOGENES #### [facility] [address], [place] [phone] [employer]: Campos Chandra MD Glucose Ql (U) Negative Normal NEG [facility] Comment on above: Performed By: #### U MICAO, UA, DIOGENES #### [facility] [address] [place] [address] [employer]: Campos Chandra MD Ketones Ql (U) Negative Normal NEG [facility] Comment on above: Performed By: #### U MICAO, UA, DIOGENES #### [facility] [address] [place] [address] [employer]: Campos Chandra MD Leukocyte esterase Test strip Ql (U) 1+ Abnormal NEG [facility] Comment on above: Performed By: #### U MICAO, UA, DIOGENES #### [facility] [address], [place] [phone] [employer]: Campos Chandra MD Nitrite,Ur Negative Normal NEG [facility] Comment on above: Performed By: #### U MICAO, UA, DIOGENES #### [facility] [address], [place] [phone] [employer]: Campos Chandra MD PH,Ur 5.0 Normal 5.0-8.0 [facility] Comment on above: Performed By: #### U MICAO, UA, DIOGENES #### [facility] [address] [place] [address] [employer]: Campos Chandra MD Protein Ql (U) 3+ Abnormal NEG [facility] Comment on above: Performed By: #### U MICAO, UA, DIOGENES #### [facility] [address] [place] [address] [employer]: Campos Chandra MD Spec. [place],Ur 1.025 Normal 1.005-1.030 [facility] [facility] Comment on above: Performed By: #### U MICAO, UA, DIOGENES #### [facility] [address], [place] [id number] [employer]: Campos Chandra MD Urobilinogen,Ur Normal Normal NORM [facility] Comment on above: Performed By: #### U MICAO, UA, DIOGENES #### [facility] [address], [place] [id number] [employer]: Campos Chandra MD Urinalysis, reflex to micros copicOrdered By: Venecia Patterson on 04-30-2021 Bilirubin Urine Negative NEGATIVE [facility] Work Phone: Color, UA YELLOW YELLOW [facility] Work Phone: Glucose, Ur Negative NEGATIVE [facility] Work Phone: Interpretation and review of laboratory results Abnormal [employer] Phone: Ketones Ql (U) Negative NEGATIVE [employer] Work Phone: Leukocyte esterase Test strip Ql (U) 1+ Abnormal NEGATIVE [employer] Phone: Nitrite, Urine Negative NEGATIVE [employer] Work Phone: pH, UA 5.0 [facility] Work Phone: Protein, UA 3+ Abnormal NEGATIVE [facility] Work Phone: Specific [place], UA 1.025 [employer] Phone: Turbidity UA CLOUDY Abnormal CLEAR [employer] Phone: Urinalysis Comments [employer] Phone: Urine Hgb 3+ Abnormal NEGATIVE [employer] Phone: Urobilinogen, Urine Normal Normal [facility] Work Phone: [employer] Phone: Urinalysis,Microon 1 ----- Normal [facility] Comment on above: Performed By: #### U MICAO, UA, DIOGENES #### [facility] [address] [place] [address] [employer]: Campos Chandra MD Urine RBC's LOADED Normal 0-2 [facility] Comment on above: Performed By: #### U MICAO, UA, DIOGENES #### [facility] [address] [place] [address] [employer]: Campos Chandra MD Urine WBC's 2 TO 5 Normal 0 [facility] Comment on above: Performed By: #### U MICAO, UA, DIOGENES #### [facility] [address] [place] [address] [employer]: Campos Chandra MD Amorphous sediment LM Ql (Urine sed) NOT REPORTED Normal NONE [facility] Comment on above: Performed By: #### U MICAO, UA, DIGOENES #### [facility] [address] [place] [address] [employer]: Campos Chandra MD Bacteria NOT REPORTED Normal NONE [facility] Comment on above: Performed By: #### U MICAO, UA, DIOGENES #### [facility] [address] [place] [address] [employer]: Campos Chandra MD Casts NOT REPORTED Normal [facility] Comment on above: Performed By: #### U MICAO, UA, DIOGENES #### [facility] [address] [place] [address] [employer]: Campos Chandra MD Crystals LM Nom (Urine sed) NOT REPORTED Normal NONE [facility] Comment on above: Performed By: #### U MICAO, UA, DIOGENES #### [facility] [address] [place] [address] [employer]: Campos Chandra MD Epithelial cells LM Ql (Urine sed) NOT REPORTED Normal [facility] Comment on above: Performed By: #### U MICAO, UA, DIOGENES #### [facility] [address] [place] [address] [employer]: Campos Chandra MD Epithelial, Renal NOT REPORTED Normal 0 [facility] Comment on above: Performed By: #### U MICAO, UA, DIOGENES #### [facility] [address] [place] [address] [employer]: Campos Chandra MD Mucus Strands NOT REPORTED Normal NONE [facility] Comment on above: Performed By: #### U MICAO, UA, DIOGENES #### [facility] [address] [place] [address] [employer]: Campos Chandra MD Other Observations NOT REPORTED Normal NREQ [facility] Comment on above: Performed By: #### U MICAO, UA, DIOGENES #### [facility] [address] [place] [address] [employer]: Campos Chandra MD Trichomonas NOT REPORTED Normal NONE [facility] Comment on above: Performed By: #### U MICAO, UA, DIOGENES #### [facility] [address] [place] [address] [employer]: Campos Chandra MD Yeast NOT REPORTED Normal NONE [facility] Comment on above: Performed By: #### U MICAO, UA, DIOGENES #### [facility] [address], [place] [id number] [employer]: Campos Chandra MD hCG, quantitative, Ordered By: Venecia Patterson on 04-30-2021 hCG Quant 72077 High <5 IU/L [facility] Phone: Comment on above: Non-preg premeno <=5 Postmeno <=8 Male <=3 If HCG results do not concur with clinical observations, additional testing to confirm results is recommended. Elevated results not associated with may be found in patients with other diseases such as tumors of the germ cells (testis, ovaries, etc.), bladder, pancreas, stomach, lungs, and liver. Interpretation and review of laboratory results Abnormal [facility] Phone: [facility] Phone: RPR QUANTon 04-12-2021 Rapid Plasma Reagin, Quant Non-Reactive Normal NonRea<1:1 [facility] Comment on above: Performed By: #### R PRQ #### [facility] [address] [place] [address] Carlos Hull HEP B SURFACE ANTIGEN SCREEN on 04-11-2021 HBsAg Screen Negative Normal Negative [facility] Comment on above: Performed By: #### R UBIGG #### [facility] [address] [place] [address] Carlos Hull HEPATITIS C VIRUS AB W/ REFL EX QUANTon 04-11-2021 HCV AB <0.1 Normal 0.0-0.9 [facility] Comment on above: Performed By: #### H CVPCRR #### [facility] [address] [place] [address] Carlos Hull Interpretation: Comment Normal [facility] Comment on above: Result Comment: Nega tive Not infected with HCV, unless recent infection is suspected or other evidence exists to indicate HCV infection. Performed By: #### H CVPCRR #### [facility] [address] [place] [address] Carlos Hull HIV 1 AND 2 WITH REFLEXon HIV Screen 4th Generation wRfx Non-Reactive Normal Non Reactive [facility] Comment on above: Performed By: #### R PRQ #### [facility] [address] [place] [address] Carlos Hull RUBELLA AB IGGon 04-11-2021 Rubella Antibodies, IgG 2.95 index Normal Immune >0.99 [facility] Comment on above: Result Comment: Non- immune <0.90 Equivocal 0.90 - 0.99 Immune >0.99 Performed By: #### R UBIGG #### [facility] [address] [place] [address] Carlos Hull CBC AUTO DIFFon 04-10-2021 BASO # 0.0 103/ul Normal 0.0-0.1 [facility] Comment on above: Performed By: #### R UBIGG #### [facility] [address] [place] [address] Carlos Hull Basophils/100 WBC (Bld) 0.3 % Normal 0.2-2.0 T [facility] Comment on above: Performed By: #### R UBIGG #### [facility] [address] [place] [address] Carlos Hull EO # 0.0 103/ul Normal 0.0-0.7 [facility] Comment on above: Performed By: #### R UBIGG #### [facility] [address] [place], [place] [id number] Carlos Della Eosinophils/100 WBC (Bld) 0.5 % Critically low 0.9-7.0 [facility] Comment on above: Performed By: #### R UBIGG #### [facility] [address] [place] [address] Carlos Della Erythrocyte distribution width (RBC) [Ratio] 12.3 % Normal 11.0-15.0 [facility] Comment on above: Performed By: #### R UBIGG #### [facility] [address] [place] [address] Carlos Della Hematocrit (Bld) [Volume fraction] 39.2 % Normal 36.0-48.0 [facility] Comment on above: Performed By: #### R UBIGG #### [facility] [address] [place] [address] Carlos Della Hemoglobin (Bld) [Mass/Vol] 13.0 g/dL Normal 12.0-16.0 [facility] Comment on above: Performed By: #### R UBIGG #### [facility] [address] [place] [address] Carlos Della IG # 0.01 10e3/ul Normal 0.00-0.03 [facility] Comment on above: Performed By: #### R UBIGG #### [facility] [address] [place] [address] Carlos Della IG % 0.2 % Normal 0.0-0.5 [facility] Comment on above: Performed By: #### R UBIGG #### [facility] [address] [place] [address] Calros Della LYMPH # 1.7 103/ul Normal 1.2-3.8 [facility] Comment on above: Performed By: #### R UBIGG #### [facility] [address] [place] [address] Carlos Della Lymphocytes/100 WBC (Bld) 25.5 % Normal 20.5-60.0 [facility] Comment on above: Performed By: #### R UBIGG #### [facility] [address] [id number] Carlos Della MANUAL DIFF REQ NO Normal [facility] Comment on above: Performed By: #### R UBIGG #### [facility] [address] [phone] Carlosgaurang Hull MCH (RBC) [Entitic mass] 30.2 pg Normal 26.7-34.0 [facility] Comment on above: Performed By: #### R UBIGG #### [facility] [address] [place], [place] [id number] Carlosgaurang Hull MCHC (RBC) [Mass/Vol] 33.2 g/dL Normal 29.9-35.2 [facility] Comment on above: Performed By: #### R UBIGG #### [facility] [address] [place] [address] Carlos Della MCV (RBC) [Entitic vol] 91.2 fL Normal 81.0-99.0 [facility] Comment on above: Performed By: #### R UBIGG #### [facility] [address] [place], [place] [id number] Carlso Della MONO # 0.6 103/ul Normal 0.3-0.8 [facility] Comment on above: Performed By: #### R UBIGG #### [facility] [address] [place], [place] [id number] Carlos Della Monocytes/100 WBC (Bld) 8.7 % Normal 1.7-12.0 [facility] Comment on above: Performed By: #### R UBIGG #### [facility] [address] [place] [address] Carlos Della NEUT # 4.2 103/ul Normal 1.4-6.5 [facility] Comment on above: Performed By: #### R UBIGG #### [facility] [address] [place], [place] [id number] Carlos Della Neutrophils/100 WBC (Bld) 64.8 % Normal 43.0-75.0 [facility] Comment on above: Performed By: #### R UBIGG #### [facility] [address] [address] Carlosgaurang Wicken Platelet mean volume (Bld) [Entitic vol] 9.2 fL Critically low 9.5-13.5 [facility] Comment on above: Performed By: #### R UBIGG #### [facility] [address] [place], [place] [id number] Carlos Della PLT 246 103/ul Normal 150-450 [facility] Comment on above: Performed By: #### R UBIGG #### [facility] [address] [place] [address] Carlos Della RBC 4.30 106/ul Normal 4.20-5.40 [facility] Comment on above: Performed By: #### R UBIGG #### [facility] [address] [place] [address] Carlos Della WBC 6.5 103/ul Normal 4.0-11.0 [facility] Comment on above: Performed By: #### R UBIGG #### [facility] [address] [place] [address] Carlosgaurang Hull CULTURE URINEon 04-10-2021 CULTURE URINE Culture Observations: NO GROWTH Normal [facility] Comment on above: Performed By: #### R PRQ #### [facility] [address] [place] [address] Carlosgaurang Hull GLYCOHEMOGLOBIN A1Con 2020 ADA RECOMMENDATION ADA THERAPEUTIC TARGET 6.0 - 7.0 ACTION SUGGESTED > 7.0 Normal [facility] Comment on above: Performed By: #### R UBIGG #### [facility] [address] [place] [address] Carlos Della Glucose [Mass/Vol] 94 mg/dL Normal [facility] Comment on above: Performed By: #### R UBIGG #### [facility] [address] [place] [address] Carlos Della HbA1c (Bld) [Mass fraction] 4.9 % Normal <=6.0 [facility] Comment on above: Performed By: #### R UBIGG #### [facility] [address] [place] [address] Carlos Hull BENJAMIN BOX TEST PT SEND OUTo n 04-10-2021 SENT TO REF LAB 04/10/2021 Normal [facility] Comment on above: Performed By: #### R UBIGG #### [facility] [address] [address] Carlos Hull TYPE AND SCREENon 04-10-2021 TYPE AND SCREEN Negative Normal [facility] Comment on above: Performed By: #### T NS #### [facility] [address] [address] Carlos Hull US PREG TVon 04-02-2021 US [...] AYDE MIN Date: 2021-04-02 09:55 Normal [facility] PAP ACOG PANEL 2: 30 to 65on 12-31-2020 . . Normal [facility] Comment on above: Result Comment: Perf ormed at: WB Performed By: #### [id number] #### [facility] [address] [id number] Carlos Hull Age Gdln ACOG Testing 30-65 Normal [facility] Comment on above: Performed By: #### [id number] #### [facility] [address] [id number] Carlos Hull DIAGNOSIS: Comment Abnormal [facility] Comment on above: Result Comment: EPIT HELIAL CELL ABNORMALITY. LOW GRADE SQUAMOUS INTRAEPITHELIAL LESION (LSIL). PREDOMINANCE OF COCCOBACILLI CONSISTENT WITH SHIFT IN VAGINAL MARA IS PRESENT. Performed at: WB Performed By: #### [id number] #### [facility] [address] [place] [address] Carlos Hull Electronically signed by: Comment Normal [facility] Comment on above: Result Comment: Mavis Sharma MD, Pathologist Performed at: WB Performed By: #### [id number] #### [facility] [address] [place] [address] Carlos Hull HPV Aptima Positive Abnormal Negative [facility] Comment on above: Result Comment: This nucleic acid amplification test detects fourteen high-risk HPV types (16,18,31,33,35,39,45,51,52,56,58,59,66,68) without differentiation. Performed at: =G Performed By: #### [id number] #### [facility] [address] [place] [address] Carlos Hull Methodology: Comment Normal [facility] Comment on above: Result Comment: This liquid based ThinPrep(R) pap test was screened with the use of an image guided system. Performed at: WB Performed By: #### [id number] #### [facility] [address] [place] [address] Carlos Hull Note: Comment Normal [facility] Comment on above: Result Comment: The Pap smear is a screening test designed to aid in the detection of premalignant and malignant conditions of the uterine cervix. It is not a diagnostic procedure and should not be used as the sole means of detecting cervical cancer. Both false-positive and false-negative reports do occur. . Performed at: WB Performed By: #### [id number] #### [facility] [address] [place] [address] Carlos Hull Pathologist Provided ICD10 Comment Normal [facility] Comment on above: Result Comment: R87. 612, R87.5 Performed at: WB Performed By: #### [id number] #### [facility] [address] [place] [address] Carlos Hull Performed by: Comment Normal [facility] Comment on above: Result Comment: Roxana Conrad Supervisor Weaving (ASCP) Performed at: WB Performed By: #### [id number] #### [facility] [address] [place], [place] [address] Carlos Hull Recommendation: Comment Abnormal [facility] Comment on above: Result Comment: Sugg est follow up as clinically appropriate. Performed at: WB Performed By: #### [id number] #### [facility] [address] [place], [place] [address] Carlos Hull Specimen adequacy: Comment Normal [facility] Comment on above: Result Comment: Sati sfactory for evaluation. Endocervical and/or squamous metaplastic cells (endocervical component) are present. Performed at: WB Performed By: #### [id number] #### [facility] [address] [id number] Carlos Hull Vital Signs Date Time Vital Sign Value Performing Clinician Facility 07-09-2025 13:34-0400 Body mass index (BMI) [Ratio] 28.32 kg/m2 [employer] Work Phone: [facility] 07-09-2025 13:34-0400 Body weight 82.01 kg [employer] Work Phone: [facility] 07-09-2025 13:34-0400 Diastolic blood pressure 70 mm[Hg] [employer] Cecilia DO Work Phone: [facility] 07-09-2025 13:34-0400 Systolic blood pressure 116 mm[Hg] [employer] DO Work Phone: [facility] 10-19-2022 16:55-0500 Body temperature 98.06 [degF] Chucho Kwon [facility] 10-19-2022 16:55-0500 Diastolic blood pressure 102 mm[Hg] Chucho Kwon [facility] 10-19-2022 16:55-0500 Heart rate 91 /min Chucho Kwon [facility] 10-19-2022 16:55-0500 Respiratory rate 18 /min Chucho Kwon [facility] 10-19-2022 16:55-0500 SaO2% (BldA) [Mass fraction] 98 % Chucho Kwon [facility] 10-19-2022 16:55-0500 Systolic blood pressure 146 mm[Hg] Chucho Kwon [facility] 05-21-2021 00:06-0400 Body weight 75.[address] EL JAIME [facility] Comment on above: Performed By: #### AFPMAT #### [facility] [address] [place] [address] Carlos Della 04-30-2021 17:33-0400 Body height 170.2 cm Venecia Patterson MD Work Phone: [facility] Work Phone: 04-30-2021 17:33-0400 Body mass index (BMI) [Ratio] 25.98 kg/m2 Venecia Patterson MD Work Phone: [facility] Work Phone: 04-30-2021 17:33-0400 Body temperature 97.9 [degF] Venecia Patterson MD Work Phone: [facility] Work Phone: 04-30-2021 17:33-0400 Body weight 75.25 kg Venecia Patterson MD Work Phone: [facility] Work Phone: 04-30-2021 17:33-0400 Diastolic blood pressure 73 mm[Hg] Venecia Patterson MD Work Phone: [facility] Work Phone: 04-30-2021 17:33-0400 Heart rate 71 /min Venecia Patterson MD Work Phone: [facility] Work Phone: 04-30-2021 17:33-0400 Respiratory rate 18 /min Venecia Patterson MD Work Phone: [facility] Work Phone: 04-30-2021 17:33-0400 SaO2% (BldA) [Mass fraction] 100 % Venecia Patterson MD Work Phone: [facility] Work Phone: 04-30-2021 17:33-0400 Systolic blood pressure 127 mm[Hg] Venecia Patterson MD Work Phone: [facility] Work Phone: 04-08-2021 20:32-0400 Body temperature 98.2 [degF] Anthony Barba MD Work Phone: [facility] Work Phone: 04-08-2021 20:32-0400 Body weight 76.61 kg Anthony Barba MD Work Phone: [facility] Work Phone: 04-08-2021 20:32-0400 Diastolic blood pressure 76 mm[Hg] Anthony Barba MD Work Phone: [facility] Work Phone: 04-08-2021 20:32-0400 Heart rate 66 /min Anthony Barba MD Work Phone: [facility] Work Phone: 04-08-2021 20:32-0400 Respiratory rate 18 /min Anthony Barba MD Work Phone: [facility] Work Phone: 04-08-2021 20:32-0400 SaO2% (BldA) [Mass fraction] 98 % Anthony Barba MD Work Phone: [facility] Work Phone: 04-08-2021 20:32-0400 Systolic blood pressure 117 mm[Hg] Anthony Barba MD Work Phone: [facility] Work Phone: Encounters Encounter Date Encounter Type Care Provider Facility Start: 07-09-2025 End: 07-09-2025 Clinisync Result Encounter Sudhir Cecilia DO Work Phone: [facility] External [facility] Unsolicited Start: 07-09-2025 End: 07-09-2025 Clinisync Result Encounter Sudhir Cecilia DO Work Phone: [facility] Unsolicited Start: 07-09-2025 End: 07-09-2025 Office outpatient visit 15 minutes Sudhir Cecilia DO Work Phone: [facility] Comment on above: Encounter for IUD re moval; Missed menses; Positive urine test ([facility]) Start: 07-09-2025 End: 07-09-2025 ambulatory SUDHIR CECILIA Not Available Start: 07-08-2025 End: 07-08-2025 Clinisync Result Encounter Sudhir Cecilia DO Work Phone: [facility] External Department Unsolicited Start: 07-08-2025 End: 07-08-2025 Clinisync Result Encounter Sudhir Cecilia DO Work Phone: [facility] External Department Unsolicited Start: 04-17-2025 End: 04-17-2025 ambulatory [facility] Facility:[facility] Start: 06-06-2024 End: 06-06-2024 ambulatory [facility] Facility:[facility] Start: 10-19-2022 End: 10-19-2022 Emergency department patient visit Chucho Kwon [place] Start: 10-19-2022 End: 10-19-2022 Emergency department patient visit Chucho Kwon [facility] Start: 10-15-2021 End: 10-17-2021 Evaluation and management of inpatient DR EL JAIME Facility:[facility] Start: 10-07-2021 End: 10-07-[address] EL JAIME Facility:[facility] Start: 10-02-2021 End: 10-02-[address] EL JAIME Facility:[facility] Start: 07-29-2021 End: 07-30-[address] SUDHIR BROOKS Facility:[facility] Start: 07-11-2021 End: 07-12-[address] EL JAIME Facility:[facility] Start: 06-04-2021 End: 06-05-[address] EL JAIME Facility:[facility] Start: 05-18-2021 End: 05-19-[address] EL JAIME Facility:[facility] Start: 04-30-2021 End: 04-30-2021 Emergency department patient visit VENECIA PATTERSON [facility] Start: 04-30-2021 End: 04-30-2021 Emergency department patient visit Venecia Patterson MD Work Phone: [facility] ED Comment on above: Vaginal bleeding in (Primary Dx) Start: 04-30-2021 End: 05-01-2021 ambulatory GLEN PACKER Facility:[facility] Start: 04-10-2021 End: 04-11-[address] EL JAIME Facility:[facility] Start: 04-08-2021 End: 04-08-2021 Emergency department patient visit [facility] Start: 04-08-2021 End: 04-08-2021 Emergency department patient visit Anthony Barba MD Work Phone: [facility] ED Comment on above: Dental infection (Pr imary Dx) Start: 04-02-2021 End: 04-03-[address] GARCIA LISTED REQUEST Facility:[facility] Start: 12-25-2020 End: 12-25-[address] EL JAIME Facility:[facility] Procedures Date Procedure Procedure Detail Performing Clinician Start: 07-09-2025 US OB TRANSVAGINAL Core y Cecilia DO Work Phone: Start: 07-09-2025 Removal intrauterine device iud Sudhir Cecilia DO Work Phone: Start: 07-08-2025 [facility] [...] Phone: Start: 04-30-2021 Blood typing serologic abo Venecia Patterson MD Work Phone: Start: 04-30-2021 Drug screen class list a Venecia Patterson MD Work Phone: Start: 04-30-2021 Urinalysis microscop ic only Venecia Patterson MD Work Phone: Start: 04-30-2021 Urnls dip stick/tabl et rgnt auto w/o microscopy Venecia Patterson MD Work Phone: Start: 06-17-2017 Removal Chucho Maria te Comment on above: rt wrist mass remova l Plan of Treatment Date Care Activity Detail Author Start: 08-13-2025 End: 08-13-2025 Patient encounter procedure 08/13/2025 10:20 AM EDT Procedure Visit [facility] [address] [facility] [place] [phone] Sudhir Brooks, DO [address] [place] [address] KRISTAL FRAZIER Start: 08-05-2025 End: 08-05-2025 Patient encounter procedure 08/05/2025 1:30 PM EDT Procedure Visit KRISTAL [facility]RAZIER [address] [facility] [facility] [place] [address] Sudhir Brooks, DO [address] [place], [place] [id number] KRISTAL FRAZIER Start: 07-09-2025 End: 10-08-2025 US Pelvis transvaginal US OB transvaginal Imaging Routine Missed menses Positive urine test ([facility]) Expected: 07/09/2025, Expires: 10/08/2025 [facility] Work Phone: Comment on above: Expected: 07/09/2025 , Expires: 10/08/2025 Start: 07-09-2025 End: 07-09-2025 Patient encounter procedure 07/09/2025 1:10 PM EDT Procedure Visit [facility] Jeanna OBGYYash [address] [place] [address] Sudhir Brooks DO [address] [place] [address] [facility] Start: 06-17-2025 Influenza vaccination Influenza Vacc ine (#1) [facility] Start: 06-17-2021 [facility] Start: 02-03-2018 Screening for malign ant neoplasm of cervix [facility] Start: 02-03-2009 Screening for malign ant neoplasm of cervix Pap Smear [facility] Start: 2000 COVID-19 Vaccine (1) COVID-19 Vaccin e (1) [employer] Phone: End: 04-30-2021 Culture, Urine Culture, Urine Microbiology Routine Once for 1 Occurrences starting 04/30/2021 until 04/30/2021 [employer] Phone: Comment on above: Once for 1 Occurrenc es starting 04/30/2021 until 04/30/2021 Culture, Urine Culture, Urine Microbiology Routine 04/30/2021 6:10 PM EDT [employer] Phone: Payers Date Payer Category Payer Blue [place] Blue Shield [id number] 2023 Unknown [id number] 1988 Unknown [id number] 2.16.84 [id number] 1988 Unknown [id number] 2.16.84 0.1.749818.3.579.2.174 1988 Unknown [id number] 2.16.84 0.1.935557.3.579.2.593 1988 Unknown [id number] 2.16.84 0.1.756212.3.579.2.593 1988 Unknown [id number] 2.16.84 0.1.148967.3.579.2.593 1988 Unknown [id number] 2.16.84 0.1.206193.3.579.2.593 1988 Unknown [id number] 2.16.84 0.1.511067.3.579.2.593 1988 Unknown [id number] 2.16.84 0.1.765160.3.579.2.593 1988 Unknown [id number] 2.16.84 0.1.950010.3.579.2.593 1988 Unknown [id number] 2.16.84 0.1.893729.3.579.2.593 1988 Unknown [id number] 2.16.84 0.1.933640.3.579.2.593 1988 Unknown [id number] 2.16.84 0.1.935103.3.579.2.593 1988 Unknown [id number] 2.16.84 0.1.263792.3.579.2.593 1988 Unknown [id number] 2.16.84 0.1.385722.3.579.2.593 1988 Unknown [id number] 2.16.8 40.1.833476.3.579.2.727 1988 Unknown [id number] 2.16.8 40.1.247236.3.579.2.1259 1959 Private Health Insurance [id number] [id number] 1959 Self-pay 1959 Unknown [id number] [id number] Unknown [id number] 2.16.84 0.1.882122.3.579.2.593 Social History Date Type Detail Facility Start: 04-08-2021 End: 04-30-2021 Tobacco smoking status NHIS Never smoker [employer] Phone: Start: 04-08-2021 End: 04-30-2021 Tobacco use and exposure Never used [facility] Start: 04-08-2021 End: 04-30-2021 Alcohol intake Lifetime non-drinker (finding) [employer] Phone: Start: 04-08-2021 History SDOH Alcohol Frequency 1 [facility] Work Phone: Start: 01-29-2021 [employer] Work Phone: Start: 1990 Sex Assigned At Not on file [facility] [employer] Phone: Exposure to SARS-CoV -2 (event) Not sure [facility] Start: 06-13-2017 Tobacco smoking status Smokes tobacco daily (finding) [facility] Comment on above: 12 ppd Sex Assigned At Female [facility] Functional Status Date Assessment Result Facility 10-19-2022 Functional Status N/A [facility] History of Present illness Narrative 07-09-2025 Karina Burgess MA - 07/09/2025 1:10 PM EDT Note Date & Type Note Facility 07-09-2025 History of Presen t illness Narrative Associated Order(s): IUD Removal Post-Procedure Diagnose(s): Encounter for IUD removal Reason for Appointment: Patient ID: Sofia Olivares is a 35 y.o. female who presents [...] US OB transvaginal 3. Positive urine test ([facility]) Z32.01 OB transvaginal IUD Removal Date/Time: 07/09/2025 [...] Sudhir Brooks DO documented in this encounter [facility] Discharge instructions 10-19-2022 Note Date & Type [...] Follow these instructions at home: Medicines Take exfb-puk-wejqpre and prescription medicines only as told by [...] and water are not available, use hand stock feeder. Avoid contact with people who have cold [...] 11/10/2005 Document Revised: 08/16/2019 Document Reviewed: 03/23/2017 [employer] Patient Education 2020 [employer] 10/19/2022 18:40:13 Upper Respiratory Infection, Adult, Nzdy-ks-Gpjn Upper Respiratory Infection, Adult An upper respiratory [...] and other clear broths. General instructions Take ykan-plk-bcerzev and prescription medicines only as told by [...] not have soap and water, use hand stock feeder. Avoid touching your mouth, face, eyes, or [...] get better within 7 10 days. Take sssg-xma-tnxnryc and prescription medicines only as told by your doctor. This information is not intended to replace advice given to you by your health care provider. Make sure you discuss any questions you have with your health care provider. Document Released: 03/21/2009 Document Revised: 10/11/2019 Document Reviewed: 05/26/2018 [employer] Patient Education [employer]. Follow Up Care 10/19/2022 16:53:44 With:Joaquim Link Address: [address] [place] [address]- Business (1) When:10/22/2022 18:20:33 Comments:Follow-up with your primary care provider in 3 to 5 days. If symptoms worsen, do not improve, or new symptoms arise please report back to emergency department for further evaluation. [facility] Evaluation + Plan note Note Date & Type Note Facility Evaluation + Plan note No data available for this section [facility] Evaluation note Note Date & Type Note Facility Evaluation note Diagnosis Dental infection- Primary Acute apical periodontitis of pulpal origin documented in this encounter [employer] Phone: Evaluation note Note Date & Type Note Facility Evaluation note Diagnosis Vaginal bleeding in - Primary Unspecified antepartum hemorrhage, unspecified as to episode of care documented in this encounter [employer] Phone: Evaluation note Note Date & Type Note Facility Evaluation note Diagnosis Encounter for IUD removal Missed menses Positive urine test ([facility]) documented in this encounter [facility] Hospital Discharge instructions Attachments Note Date & Type Note Facility Hospital Discharge instructions The following attachments cannot be sent through Care Everywhere.Tooth: Abscessed (Syriac)documented in this encounter [employer] Phone: Hospital Discharge instructions Attachments Note Date & Type Note Facility Hospital Discharge instructions The following attachments cannot be sent through Care Everywhere.: Vaginal Bleeding (Syriac)documented in this encounter [facility] Work Phone: Progress note Note Date & Type Note Facility Progress note No data available for this section [facility] Summary Purpose Family History No Family History [...] pregn ant, pt of Dr. Jaime in [place]. Pt started bleeding this afternoon around 4pm. Pt called office and they told her to go to hospital. She came here because she lives in [place]. Pt also c/o abdominal cramping. Reason Comments [...] CREATED AUTHOR AUTHOR'S ORGANIZ ATION 10/23/2021 [facility] DATE CREATED AUTHOR AUTHOR'S ORGANIZ ATION 08/16/2023 [facility] DATE CREATED AUTHOR AUTHOR'S ORGANIZ ATION 04/19/2025 [facility] DATE CREATED AUTHOR AUTHOR'S MITCHELL COOMBS 07/10/2025 [facility] dical Specialists EPIC Patient Care team informatio n (unrecognized section and content) Kitchen Designer Relationship Specialty Start Date End Date Nakul EliasDO [address] [place] [address] PCP - General Family Medicine 02/22/23 Kitchen Designer Relationship Specialty Start Date End Date MaryseNakul wilson DO [address] [place] [address] PCP - General Family Medicine 02/22/23 FOR [...] BE BASED ON THE PRIMARY CLINICAL RECORDS. [employer] provides no warranty or guarantee of the accuracy or completeness of information in this document.
[2025-07-11] MEDS: ACETAMINOPHEN 500 MG TABLET 1000 MG PO (15:59)
--- NOTE | 2025-07-11 18:40 | PC.NURSE ---
Pt placed into gown with belongings bagged - removed from cardiac monitor technician This nurse noted rash to patients chest and the top of her shoulders Pt has not had anything new - stated this has happened to her before with stress - this was relayed to physician Pts should be coming This nurse spoke with Dr. Valles in person in ER
--- OUTSIDE RECORDS SUMMARY | 2025-07-11 19:07 | XMS_ITS | Encounter Summary ---
Author Organization [facility] Address [address] [place] [address] Care Team Providers Care Amusement Ride Operator Name Role Phone Nakul Elias DO Primary Care Provider [phone] Encounter Details Date Type Department Care Team (Late Contact Info) Description 07/04/2025 Telephone [facility] FRAZIER [address] [place] [address] Vero Lowe MA [address] [address] Social History Tobacco Use Types Packs/Day Years [...] EDT Procedure Visit [facility] Jeanna FRAZIER [address] [place] [phone] Sudhir Brooks DO [address] [place] [address] documented as of this encounter Visit Diagnoses Not on filedocumented in this encounter Care Teams Amusement Ride Operator Relationship Specialty Start Date End Date Nakul Elias DO [address] [facility] [address] [place] [address] PCP - General Family Medicine 02/22/23 documented as of this encounter
--- OUTSIDE RECORDS SUMMARY | 2025-07-11 19:07 | XMS_ITS | Encounter Summary ---
Author Organization [facility] Address [address] [facility] [place] [address] Care Team Providers Care Advanced Practice Psychiatric Nurse Name Role Phone Nakul Elias DO Primary Care Provider [phone] Encounter Details Date Type Department Care Team (Late st Contact Info) Description 07/09/2025 Clinisync Result Encounter NOMS External Department Unsolicited Luke Brooks DO [address] [place] [id number] Social History Tobacco Use Types Packs/Day Years [...] EDT Procedure Visit [facility] [address] [place] [phone] Luke Brooks DO [address] [place] [address] documented as of this encounter Procedures Procedure Name Priority Date/Time Associated Diagnosis Comments US OB TRANSVAGINAL 07/09/2025 3: 10 PM EDT documented in this encounter Results * US OB TRANSVAGINAL (07/09/2025 3:10 PM EDT) Anatomical Region Laterality Modality Other 07/09/2025 3:10 PM EDT Narrative 07/09/2025 3:30 PM EDT [address] [address] Ultrasound Report Signed Patient: HARSH DENNISON MR#: [id number] : 1990 Acct:[id number] Age/Sex: 35 / F ADM Date: 07/09/25 Loc: US Attending Dr: Luke Brooks D.O. Ordering Physician: Luke Brooks D.O. Date of Service: 07/09/25 Procedure(s): US OB transvaginal Accession Number(s): [id number] cc: Luke Brooks D.O.; SARWAT MURRAY [address] [address] Patient Name: HARSH DENNISON MRN: [id number] date: 1990 Sex: F Assigned Patient Location: US Current Patient Location: US Accession/Order Number: [id number] Exam Date: 07/09/2025 14:32 Report Date: 07/09/2025 [...] Jr., D.O. 07/09/2025 3:10 PM Dictation Location: [place] [address] Electronically authenticated by: [id number] Y Date: 07/09/2025 15:10 Dictated By: Ricardo Umanzor M.D. Signed By: 07/09/25 1530 DD/ 1510 TD/TT: Data Entry Email Processor: Procedure Note Radiology, Radiologist, - 07/09/20[address] [place] [address] Ultrasound Report Signed Patient: HARSH DENNISON RMR#: [id number] : 1990Acct:[id number] Age/Sex: 35 / FADM Date: 07/09/25 Loc: US Attending Dr: Luke Brooks D.O. Ordering Physician: Luke Brooks D.O. Date of Service: 07/09/25 Procedure(s): US OB transvaginal Accession Number(s): [id number] cc: Luke Brooks D.O.; SARWAT MURRAY [place] [id number] Patient Name: HARSH DENNISON MRN: [id number] date: 1990 Sex: F Assigned Patient Location: US Current Patient Location: US Accession/Order Number: [id number] Exam Date: 07/09/2025 14:32 Report Date: 07/09/2025 [...] Jr., D.O. 07/09/2025 3:10 PM Dictation Location: [place] [address] Electronically authenticated by: [id number] Y Date: :10 Dictated By: Ricardo Umanzor M.D. Signed By:07/09/25 1530 DD/ 1510 TD/TT: Data Entry Email Processor: us Luke Cecilia DO [facility] Final Result documented in this encounter Visit Diagnoses Not on filedocumented in this encounter Care Teams Advanced Practice Psychiatric Nurse Relationship Specialty Start Date End Date Nakul Elias DO [address] [place] [address] PCP - General Family Medicine 02/22/23 documented as of this encounter
--- OUTSIDE RECORDS SUMMARY | 2025-07-11 19:07 | XMS_ITS | Encounter Summary ---
Author Organization [facility] Address [address] [facility] [place] [address] Care Team Providers Care Pump House Operator Name Role Phone Nakul Elias DO Primary Care Provider [phone] Encounter Details Date Type Department Care Team (Late st Contact Info) Description 07/08/2025 Clinisync Result Encounter [facility]S External Department Unsolicited Sudhir Brooks [address] [place] [id number] Social History Tobacco Use Types Packs/Day Years [...] EDT Procedure Visit [facility] [address] [place] [phone] Sudhir Brooks [address] [place], [facility] documented as of this encounter Procedures Procedure [...] EDT Sudhir Cecilia DO [facility] Final Result [facility] documented in this encounter Visit Diagnoses Not on filedocumented in this encounter Care Teams Pump House Operator Relationship Specialty Start Date End Date Nakul Elias DO [address] [facility] [address] [place] [address] PCP - General Family Medicine 02/22/23 documented as of this encounter
--- OUTSIDE RECORDS SUMMARY | 2025-07-11 19:07 | XMS_ITS | Encounter Summary ---
Author Organization [facility] Address [address] [facility] [place] [address] Care Team Providers Care Internet Marketing Director Name Role Phone Nakul Elias DO Primary Care Provider [phone] Encounter Details Date Type Department Care Team (Late st Contact Info) Description 07/08/2025 Telephone [facility] [address] [place] [address] Sudhir Brooks DO [address] [place], [facility] Social History Tobacco Use Types Packs/Day [...] being ableto be transferred. Orders sent to [facility]. * Telephone Encounter - Chichi Bhatia LPN - 07/08/2025 9:55 AM EDT I was calling to find out the results of my blood work that I got done over the weekend at the hospital. I just calling to see what is going on. And when I can get my control out, you can call me back [phone]. Thank you. Patient call was returned and [...] Visit [facility] [address] [place] [address] Sudhir Brooks DO [address] [place] [address] Scheduled Orders Name Type Priority Associated Diagnoses Orde r Schedule hCG, quantitative, Lab Routine Positive urine test ([facility]) 6 Occurrences starting 07/08/2025 until 07/08/2026 documented as of this encounter Visit Diagnoses Diagnosis Positive urine test ([facility]) documented in this encounter Care Teams Internet Marketing Director Relationship Specialty Start Date End Date Nakul Elias DO [address] [facility] [address] [place] [address] PCP - General Family Medicine 02/22/23 documented as of this encounter
--- OUTSIDE RECORDS SUMMARY | 2025-07-11 19:07 | XMS_ITS | CCD ---
Author Organization [facility] Care Team Providers Care Scanning Manager Name Role Phone Yifan Umana Primary Care Provider VENECIA PATTERSON Attending Unavailable MURRAY, YIFAN A Primary Care Unavailable ANTHONY BARBA Attending Unavailable MURRAY, YIFAN A Primary Care Unavailable KARASIK, DR GALLEGOS Attending Unavailable KARASIK, DR GALLEGOS Admitting Un[facility]available KARASIK, DR GALLEGOS Consulting [...] KARASIK, DR GALLEGOS Admitting Unavailable KARASIK, DR GALLEGSO Attending Unavailable KARASIK, DR GALLEGOS Consulting Unavailable [...] Attending Unavailable Sharath CALIX Attending Unavailable Nakul lEias DO Primary Care Provider SUDHIR BROOKS Attending [...] tablet (1 source) Opioid Agonist Start: 06-17-2017 [place]ell[place] 325 mg-5 mg oral tablet See Instructions, [...] day(s), # 6 tab(s), Refills(s) 0, Pharmacy: [facility] #16, 170, cm, 10/19/22 16:59:00 EST, Height/Length [...] day(s), # 5 tab(s), Refills(s) 0, Pharmacy: [facility] #16, 170, cm, 10/19/22 16:59:00 EST, [...] also wanting to schedule for bilateral salpingectomy. [facility] OB TRANSVAGINALon [address] [place] [address] Ultrasound Report Signed Patient: SOFIA OLIVARES MR#: [id number] : 1990 Acct:[id number] Age/Sex: 35 / F ADM Date: 07/09/25 Loc: US Attending Dr: Sudhir Brooks D.O. Ordering Physician: Sudhir Brooks D.O. Date of Service: 07/09/25 Procedure(s): US OB transvaginal Accession Number(s): [id number] cc: Sudhir Brooks D.O.; YIFAN MURRAY [place] [id number] Patient Name: SOFIA OLIVARES MRN: [id number] date: 1990 Sex: F Assigned Patient Location: US Current Patient Location: US Accession/Order Number: [id number] Exam Date: 07/09/2025 14:32 Report Date: 07/09/2025 [...] Soto Jr.OGiles 07/09/2025 3:10 PM Dictation Location: [place] [address] Electronically authenticated by: [id number] Y Date: 07/09/2025 15:10 Dictated By: Ricardo Umanzor M.D. Signed By: 07/09/25 1530 DD/ 1510 TD/TT: Supervisor Transcribing Operators: [facility] Radiology, Radiologist, MD - 07/09/2025 [place] [address] Ultrasound Report Signed Patient: SOFIA OLIVARES MR#: [id number] : 1990 Acct:[id number] Age/Sex: 35 / F ADM Date: 07/09/25 Loc: US Attending Dr: Sudhir Brooks D.O. Ordering Physician: Sudhir Brooks D.O. Date of Service: 07/09/25 Procedure(s): US OB transvaginal Accession Number(s): [id number] cc: Sudhir Brooks D.O.; YIFAN MURRAY [place] [address] Patient Name: SOFIA OLIVARES MRN: [facility]:[id number] date: 1990 Sex: F Assigned Patient Location: Current Patient Location: Accession/Order Number: [id number] Exam Date: 07/09/2025 14:32 Report Date: 07/09/2025 [...] Jr., D.O. 07/09/2025 3:10 PM Dictation Location: [place] [address] Electronically authenticated by: [id number] Y Date: 07/09/2025 15:10 Dictated By: Ricardo Umanzor M.D. Signed By: 07/09/25 1530 DD/ 1510 TD/TT: Supervisor Transcribing Operators: [facility] Radiology Study observation (narrative) [facility] US OB TRANSVAGINALOrdered By : Radiologist Radiology on 07-09-[address] [facility] Work Phone: [facility] PREG QUANT HCGon 025 HCG QUANTITATIVE 90 mIU/mL [facility] Comment on above: 5-50 0.2-1 WEEK 50-500 1-2 WEEKS 100-5,000 2-3 WEEKS 500-10,000 3-4 WEEKS 1,000-50,000 4-5 WEEKS 10,000-100,000 5-6 WEEKS 15,000-200,000 6-8 WEEKS 10,000-100,000 2-3 MONTHS [facility] ED Note-Physicianon 10-26-19 ED Note-Physician Basic Information [...] cough for her. Reports that he tried pjck-tbu-mojzzol medications, with no relief of her symptoms. [...] and Complexity of Problems Differential Diagnosis: [] [facility] Data External documents reviewed: [] My EKG interpretation: [] My CT interpretation: [] My X-ray interpretation: Reviewed My Ultrasound interpretation: [] Decision rules/scores evaluated: [] Discussed with: [] Treatment and Disposition ED Course: 32-year-old female reports emergency department chief complaint of cough that is been going since a month ago. Reports that it is not getting better. Reports that she has tried trgl-hfk-bhgnhbs medications without much relief of her symptoms. Reports that she is still coughing. Denies any recent antibiotic use. Reports that she has tried ennf-zjc-apboqbw medication without relief. Denies any fevers or [...] antibiotics and medication as prescribed. Continue take hwbc-qlt-paukxmc medications. Discussed return precautions. Follow-up with your primary care provider in 3 to 5 days. If symptoms worsen, do not improve, or new symptoms arise please report back to emergency department for further evaluation. The patient was understanding and agreeable to plan moving forward. []The patient has acute bronchitis/bronchiol itis and antibiotics were not prescribed or dispensed today.[[facility] PERFORMANCE] [x] The patient has acute bronchitis/bronchiol [...] day(s), # 6 tab(s), Refills(s) 0, Pharmacy: [facility] #16, 170 (more content not included)... Normal [facility] Comment on above: Result Comment: Elec tronically Signed By: Tony Hamlin PA-C\.br\Date and Time Signed: 10/19/22 21:25 EST\.br\Electronically Co-Signed By: Chucho Kwon DO\.br\Date and Time Co-Signed: 10/26/22 07:09 EST Coding Summary.on 10-22-2022 Coding Summary. CD:[id number] Gh0bWw+PGhlYWQ+PE1FV JXoZ20zlWAroL3FF0fCD Z3MKVOVWVXVYQ7EJX5ni MD7BSiwK7YuljOd HdtynTHmQF24YTs2BHZ5 mNwpSEsqjM4efHXvU9t3 YdDgAR32tL05GZrfHDLf IaT8UqPyyctovSSs C3haYtYhoILaQyx+PHRh YmxlIHdpZHRoPScxMDAl VsRtnZonEX7oAj3uUYFi LWNvbGxhcHNlOiBj a3kiNAUgZCuzJD3vbVxk Q1RrdPS7ZEOrc0d8Od43 dHI+NXQaREO5rRotVIeo i545GwHej1mrKTK7 sBOpQMtwZNT6G02gl6Z1 PYZlXXPeUOC1uFZ7wW9b aZnxosnhM4AehSXwWnF9 IHS1vDBmuO0ztTou kkftyC0jZnh+R90TXN0A DCBKAB1RYiu4V4IuJzhp dHI+IN07LNPlAO39fPEm qUUkk8uxkZq5UmYo DAYtXXV6cOzwRJpht2Qg JKEaI10ldCRpy7K2TBGr sQgpgXHuItEszXS7yA9y OXhelvjrm4rhqadk Jildp6fqcp29yZ79N42p GNfbWQNkXAO3PDScFRAs sEsfis4mcX6wPc0+IDxj o6jcw2khnKg9ZqRo OGIiigVfrBuuEVK6o9Gd Wk43U4XjuFxdv7EjGcf0 xr40pUOiw1W9wRW2VJiv FVHbjO6sMUjqSnM2 JWXcRfFhlG75nLWwDDvx De4joUoozYhwXC8sIHOt mgbcADDypD2iBTEhqQTl sIpkOG2wKCZeomjk i130EhPpYWQ0WHCuzHTo Q2KzkN9hQcVbBEIdONBu C0RejLTdTVwqO496ZLxg PlM2KZUnniVrD4Kk SHIabPhnJkH5z6Y3Tc1R c1QsikjwMXB1BZpkZMVc EgC5IeYvLiJ0Y6OdAbb1 RTGyrCmmZN7rV8Fd PMNllayjusokfZG4UQNz QRDzuN49yHEoKWuoCl2z y8N8w655KTIdZOTtrM56 Ap5dhSoyYHAulPOR wV3npbkae8sqkimtUuDk FAAeUTa8VJw2YGOukKgl GgXhXLA0AaP7VDV2fPIe mC6fqLlemjdhxA2s Oyc+O69zhF0aDHM6GKW8 wjveEZOikxKuDS70MY68 I8LaDuewlZEeiZI+PGRp qlUqpWtmJP2kKcRo t4cmv2EtAMxyS2CxRCSm BAvlPbv3LICbCNJ4gAE5 gB2pRNXlJAcnv7W9gDU3 N8VjenPyde4ew9ot RHNlQApoU51euAExh1C2 OHQzbJL1TEGtgUsbSqAo xN01Ygs+PMZoiObkr9Qt Mlmae0iep2sgwSm1 IjMwJSIgdmFsaWduPSJ0 e0YqDv31O32aYPhtAONd HGBpXGPqQLVlkYmpqe5r oE7rLt9+PGNvbCB3 zKI2uA0lSGDuMgU4MZeg M335GnToeZOmFtwwu3ev q3lggGs9OnLvGFQkkfPk rYjaQUK4z3TjHl02 K44bPKqlEWJtXACyTHIm RUMmwRrgbu2vmE2mRe8+ QU3zb2lehv96oB19nNL+ KOOxFUD3mJieMHqi NEUchM1eVJwuUmF0NHLj FxMwvT81hCTtHHkxBf7w nQgleCphQV9zPUQtfsvr a706IiOot0rbCCDv mSKgHWkpLTT4R31jr0K4 WTWkBGZnVGF5rAK0iE1l bGlnbjogbGVmdDsgdmVy wBkgQCnyUOfcI767 IHRvcDsnPlBhdGllbnQg KcNgNKq9M2YvNes1CFEo eGuxAZ6zzCHnPKxjZm8p oJszrNauYU9yJFDr qwazl709UrEse6zaMHEb oXImPKrgIGX1Y72qs8I0 ETPoBDEeTBC4qVO8kU8d bGlnbjogbGVmdDsg jiTdsZarVKixUYeqJ547 IHRvcDsnPkJpcnRoIERh pMJ4ET93UR87bUXsn2H7 lHZ1N4AmXDVtyivw csmfrNT2PSMmRJYocT49 Mv6usRdoHg0iHVOnNYW3 ECIcuVUaE7YucZ4kIsCb HUCbXGQdZ2IyrDBb JPfyY574RCqhSoI7OSLs axYpX1RjBSDxfRirTyZ2 l0W5Bs1FU7N9EX99BJ43 eQRiu6O1fAK6O1Vr QKGnnqnjdiekcJJ0ZKAu CTHdhQ81Wz8avGvtUm6k SPIpRJY4SNEefSLoT2Cx tX5vRxStKPLuBDQe S6UshLFjIEeoA414NDlz PgP7UMHamgLcH2AeJJTk tKpfRpW2i2E2Zy5GBCs5 OQ69QB89cDVwl4M2 oOS7D9FnHCPrzjkkfnsf eFS5XOSfRRFhtR09Cz4r xXzfZr9oKLFsULZ2BSFc wTGiR7FvyB2mLpFb XFTnYCNvT6CgsIIxAQhm I265JXfdDoX6JFCvprTh M6TaJNCrfMbpUiG8u8A4 Te0ZUQUlNG03SEO2 lOE2KW90AL69F3LhQmhq dGFibGU+PHRhYmxlIHdp ZHRoPScxMDAlJyBzdHls FR2yXo3wQZYpZULz jCwhvQJkFpRwl6vvDZJv XLqxLZ3ebLsaM1XsaGZ1 BWMig3f6Bp12O83sV2Wr dXA+XLLvdSJ9eQN0 vU6nUxObCjN9GPsdX872 CeGznITpGmpnm9fpj0km yFo6MlN9WLRisuUdpPor YEZ1g3RiHj45D40v IHdpZHRoPSIxNSUiIHZh iFtdxu6tdD7fTa9+PGNv dJI9zSR5eK6aBdXeXbJ9 PEhmZ979AiXqdZEn Xfyid2gkk2ssmDt8KoUg CHKooxDjdXguQYE6q1Jt Tj49U6WvwWkwq6KgVuu6 iw40nTEli4C0bWY8 H3KxHYKeuxfelCQtmKdy NO4jCIMusyxuSMPahE8p DHAvX4b2JjXaTbY5TGig F1UjyqL5KLThbGEy EWkqFXU2Y58rv5D8EHNh LUHcPAX6yDQ3qE5rdHdi bjogbGVmdDsgdmVydGlj HKfpSDyiJ784LTBl bHmbSHYdtF4zGZOucVKr rJusBN5cDSQttzwcZsyT UkQsIFNBTUFOVEhBIFI8 R0YiCkd4TCMgbTew ZQ3kmTCsOAicGa6oxUwj jSfnIK1wKPLyvqydPDId nZ7zLDYakZYalOgyFA9l ISZaxmqbe663XzCb BYN6BZWdyVStV3EatO8h MkZiCTToDCIoI2QyeVId TMqcQ563NHtqKcE0CCCb kzJmJ6DmNESdcFll VhC4s3M8Tc2iBB9iJZ1b SAu9UU31QD21kUZpt2A3 yXG1L2IaLHLxjsyakjsq pWQ0LLHyIORtsL87 wJDkYTfnPe7rx0T9f443 RQIzUJPlsH02Jb4nkKsy TUYhcBYMfC6euehzt4ik cjogIzAwMDAwMDt0 GFr6FKVnuZhyMdIsLRC3 EhO5ZPA2hKUbbJ2thPlb kyfdmJ6bQws+MzQgWWVh sjW4Q1EdCer6JBYt tVnhAL2gvOZoPMusIg2g lUzxiDfbKY7sRGBgrayw KQTmqW6oLWNkyGXjzQrk DJ1zPYGfgthbe803 VaHlZZC5PDPgeDPcN9Qj rB4wHfXyUHHwPDUnR6Su oVSpWXjcI239CEsuRsW6 SAWphzEmA2OfGQLs aUmnIrK3m6S9Zb4GBV5f hPL1D7XsBse4RDCmrWuo HH3imZZgNSrpDa9dqIxb uAozLS2zHDKgqaul TJAfdG3qVOEluKLihHde QK1rHFZotogpa887QhPr FKX4KHMbnHThH8DiiV8n OqMqLVUhKEUyW2Uo yPEqIEudW866AGwlMjV7 SDHfvdMoL1KvRCZurPnv ZcB1h2H3Hf6DsCPbK2Pp M5l5Y6PxLuxrrWT+ ZW00HHBlIO37kOMvtVLu i5criDr0UxWfGWYtLQI4 jWciLHdqt5PdIILkR82a fSXyl7X5LHYbxCos uFVmRwZflTS4qD3uQHcp scrau4dvjglnJfzub6tr qi33vT67W14xEMmdFCFf PSIzMCUiIHZhbGln mv4yaH6xYi3+PGNvbCB3 bCR6lY8bBpZoJzG3XIil G564SgAzkPPxMssej4cn f3btkJj5CuCfSMYh pcVgvLqvYPX1z7YmKy32 E98lCUnhQYHgUJDfSVAk PUQqlMhvsh5tyC3fFh6+ VK2dw8wxym53vM63 dHI+SKPvDMI5iCsiFVgc TDWqkX0mKJxdZqO1SQLe DmCzjQ80aJKdBSvpLl9j jNlamPwtPA6uXTEy jzeao852WwNll9ulTKNp aWHdOOkwQMX4B83le8Y4 GCTzZNPyCLI6jFQ1uE2t bGlnbjogbGVmdDsg ysHcqXojUQdsMTwrI831 GGWodRblAjWakPPuF2ao arGDQD7yLtqhlQR+PHRk WUQ3gDpbBNkwSJXk uW1vPZDiJ8j6BzVxKkW6 JDyyZ6DnexJ3FMVcrMWu IAYlzTBJnF2wxfxyd0dy cjogIzAwMDAwMDt0 IVq2GXTigDvmWwWtZWQ7 PgA6MYY4pWBofB7efDzp cjxfgF9sVie+RklOOjwv dGQ+PNLrAUM0zAsy AFadIKBprF5kBZQlZ6s3 WrUcBgB2ROiyG4KtbfD2 AUBeqYOnAJCelONSbU0y ezmmf7jntnikIlWb LQKbKBk8RIo4SFAugEjh TcIxTQF8IiE2RKT3cQEq rN8whBcnwlkxhS3pZkf+ TVJOOjwvdGQ+PHRk RYY6eBoeYLfaCTOlaA7v WRNkS7c2RnZdOlQ3HMtg A2TyngE3CJVktTBgUSKr oPXTuB8chufny2wh gwhjQaGoIODoCId4ETx5 ZMMmwBlhBnQzUFS6EkG9 ZUI1lRXgvX9qhJbelnux oH2uSle+JUK4TPH9 NI07DO35O6CjFtlkmMZi bGU+PHRhYmxlIHdpZHRo TAsvVVYcEhCamZekOF1n Vm2aYDTbGAWusWqb cHNl (more content not included)... Normal [facility] XR Chest 2 Viewson XR Chest [...] M.D. Transcribed by: LACY Technologist: ZAK Normal [facility] Consent for Treatmenton Consent for Treatment [id number] #1.00CD:127 [facility] Discharge Instructionson Discharge Instructions [id number] 2#1.00CD:127 [facility] ED Clinical Summaryon 2022 ED Clinical Summary [place] [id number] ED Clinical Summary Person Information [facility]: [facility] Age: 32 Years : 1990 Sex: Female Language: Spanish PCP: Joaquim Osuna DO Marital Status: Single Phone: [phone] Visit Id: Visit Reason: Sinus Pain/Congestion; Cough; [...] 10/19/2022 18:40:12 ADDRESS: [address] [facility] [id number] PHYS DOC NOTES: MEDICAL INFORMATION: Prescriptions Given: New Medications [facility], [address] [address], [place] [id number], [phone] azithromycin (azithromycin 250 mg Tab 5-day Dose Pack (Z-Abe)) 1 Packets By Mouth As Directed for 5 Days. as directed on package labeling. Refills: 0. predniSONE (predniSONE 50 mg Tab) 1 Tablets By Mouth every day for 5 Days. Refills: 0. Medications to Continue with No Changes Other Medications acetaminophen-hydroc odone ([place]ellston 325 mg-5 mg oral tablet) 1-2 tab(s) [...] Acute Bronchitis, Adult; Upper Respiratory Infection, Adult, Vzwm-fd-Mqlm Follow up: With: Address: When: [address] [place] [address] [facility] (1) In 3 days 10/22/2022 Comments: Follow-up with your primary care provider in 3 to 5 days. If symptoms worsen, do not improve, or new symptoms arise please report back to emergency department for further evaluation. DIAGNOSIS: Bronchitis Normal [facility] ED Patient Education Noteon 10-19-2022 ED [...] other clear broths. General instructions ? Take iope-xfq-odrkapb and prescription medicines only as told by [...] not have soap and water, use hand word processing operator. ? Avoid touching your mouth, face, eyes, [...] get better within 7?10 days. ? Take vxlw-rsn-xrylcef and prescription medicines only as told by your doctor. This information is not intended to replace advice given to you by your health care provider. Make sure you discuss any questions you have with your health care provider. Document Released: 03/21/2009 Document Revised: 10/11/2019 Document Reviewed: 05/26/2018 [employer] Patient Education ? 2020 [employer]. Pulmonary Medicine Acute Bronchitis, Adult Acute bronchitis [...] A fe (more content not included)... Normal [facility] ED Patient Summaryon 023 ED Patient Summary [address] [address] Patient Discharge Instructions Person Information Name: SOFIA ARANGO Age: 32 Years Arrival Date: 10/19/2022 16:52:07 Discharge Diagnosis: Bronchitis Primary Care Physician: Joaquim Osuna DO Provider Information Primary Provider: Chucho Kwon DO Advanced Manager Investigations:None The exam and treatment you received in the Emergency Department were for an urgent problem and are not intended as complete care. It is important that you follow up with a doctor, nurse practitioner, or physician?s payroll assistant for ongoing care. If your symptoms [...] Address: Edmundo: Joaquim Painter, dg [address] [place] [address] Business (1) In 3 days 10/22/2022 Comments: [...] Acute Bronchitis, Adult; Upper Respiratory Infection, Adult, Utcd-sb-Wsff A MESSAGE TO ALL PATIENTS REGARDING OPIOIDS PRESCRIPTION OPIOIDS: WHAT YOU NEED TO KNOW Prescription opioids can be used to help relieve zahtzahk-de-cbyvzy pain and are often prescribed following a [...] the risk (more content not included)... Normal [facility] MICRO OTHER TESTSOrdered By: Tamar Banks on 10-19-2022 Rapid COV Int NEG Ctl Pass (10/19/22 5:12 PM) Normal [facility] Man Sero Rapid COV Int POS Ctl Pass (10/19/22 5:12 PM) Normal [facility] Man Sero SARS-CoV+SARS-CoV-2 (COVID-19) Ag IA.rapid Ql (Resp) Not Detected (10/19/22 5:12 PM) Normal Not Detected [facility] Man Sero Rapid COVID Antigen ([facility])on 10-19-2022 Rapid COV Int NEG Ctl Pass Normal [facility] Comment on above: Performed By: #### 2 [id number] #### [facility] [address] [place] [address] Rapid COV Int POS Ctl Pass Normal [facility] Comment on above: Performed By: #### 2 [id number] #### [facility] [address] [place] [address] SARS-CoV+SARS-CoV-2 (COVID-19) Ag IA.rapid Ql (Resp) Not detected Normal Not Detected [facility] Comment on above: Result Comment: The [employer] Veritor? System for Rapid Detection of SARS-CoV-2 [...] or revoked sooner. Performed By: #### 2 [id number] #### [facility] [address] [place] [address] ADMITTED TO INTENSIVE CARE UNIT FOR CONDITION OF INTEREST:FIND:PT: NO Normal [facility] Comment on above: Performed By: #### 2 [id number] #### [facility] [address] [place] [address] EMPLOYED IN A HEALTHCARE SETTING:FIND:PT: NO Normal [facility] Comment on above: Performed By: #### 2 [id number] #### [facility] [address] [place] [address] FIRST TEST FOR CONDITION OF INTEREST:FIND:PT: NO Normal [facility] Comment on above: Performed By: #### 2 [id number] #### [facility] [address] [place] [address] HAS SYMPTOMS RELATED TO CONDITION OF INTEREST:FIND:PT: YES Normal [facility] Comment on above: Performed By: #### 2 [id number] #### [facility] [address] [place] [address] HOSPITALIZED FOR CONDITION OF INTEREST:FIND:PT: NO Normal [facility] Comment on above: Performed By: #### 2 [id number] #### [facility] [address] [place] [address] STATUS:FIND:PT: NO Normal [facility] Comment on above: Performed By: #### 2 [id number] #### [facility] [address] [place] [address] RESIDES IN A [facility] CARE SETTING:FIND:PT: NO Normal [facility] Comment on above: Performed By: #### 2 [id number] #### [facility] [address] [place] [address] CBC AUTO DIFFon 10-17-2021 BASO # 0.0 103/ul Normal 0.0-0.1 [facility] Comment on above: Performed By: #### C BC #### [facility] [address] [place] [address] Dr. Marianne Mojica Basophils/100 WBC (Bld) 0.4 % Normal 0.2-2.0 [facility] Comment on above: Performed By: #### C BC #### [facility] [address] [place] [address] Dr. Marianne Mojica EO # 0.1 103/ul Normal 0.0-0.7 [facility] Comment on above: Performed By: #### C BC #### [facility] [address] [place] [address] Dr. Marianne Mojica Eosinophils/100 WBC (Bld) 1.1 % Normal 0.9-7.0 [facility] Comment on above: Performed By: #### C BC #### [facility] [address] [place] [address] Dr. Marianne Mojica Erythrocyte distribution width (RBC) [Ratio] 13.2 % Normal 11.0-15.0 [facility] Comment on above: Performed By: #### C BC #### [facility] [address] [place] [address] Dr. Marianne Mojica Hematocrit (Bld) [Volume fraction] 33.5 % Critically low 36.0-48.0 [facility] Comment on above: Performed By: #### C BC #### [facility] [address] [place] [address] Dr. Marianne Mojica Hemoglobin (Bld) [Mass/Vol] 11.1 g/dL Critically low 12.0-16.0 [facility] Comment on above: Performed By: #### C BC #### [facility] [address] [place] [address] Dr. Marianne Mojica IG # 0.05 10e3/ul Critically high 0.00-0.03 [facility] Comment on above: Performed By: #### C BC #### [facility] [address] [place] [address] Dr. Marianne Mojica IG % 0.5 % Normal 0.0-0.5 [facility] Comment on above: Performed By: #### C BC #### [facility] [address] [place] [address] Dr. Marianne Mojica LYMPH # 2.8 103/ul Normal 1.2-3.8 [facility] Comment on above: Performed By: #### C BC #### [facility] [address] [place] [address] Dr. Marianne Mojica Lymphocytes/100 WBC (Bld) 29.9 % Normal 20.5-60.0 [facility] Comment on above: Performed By: #### C BC #### [facility] [address] [place] [address] Dr. Marianne Mojica MANUAL DIFF REQ NO Normal [facility] Comment on above: Performed By: #### C BC #### [facility] [address] [place] [address] Dr. Marianne Mojica MCH (RBC) [Entitic mass] 31.6 pg Normal 26.7-34.0 [facility] Comment on above: Performed By: #### C BC #### [facility] [address] [place] [address] Dr. Marianne Mojica MCHC (RBC) [Mass/Vol] 33.1 g/dL Normal 29.9-35.2 [facility] Comment on above: Performed By: #### C BC #### [facility] [address] [place] [address] Dr. Marianne Mojica MCV (RBC) [Entitic vol] 95.4 fL Normal 81.0-99.0 [facility] Comment on above: Performed By: #### C BC #### [facility] [address] [place] [address] Dr. Marianne Mojica MONO # 0.7 103/ul Normal 0.3-0.8 [facility] Comment on above: Performed By: #### C BC #### [facility] [address] [place] [address] Dr. Marianne Mojica Monocytes/100 WBC (Bld) 7.3 % Normal 1.7-12.0 [facility] Comment on above: Performed By: #### C BC #### [facility] [address] [place] [address] Dr. Marianne Mojica NEUT # 5.6 103/ul Normal 1.4-6.5 [facility] Comment on above: Performed By: #### C BC #### [facility] [address] [place] [address] Dr. Marianne Mojica Neutrophils/100 WBC (Bld) 60.8 % Normal 43.0-75.0 [facility] Comment on above: Performed By: #### C BC #### [facility] [address] [place] [address] Dr. Marianne Mojica Platelet mean volume (Bld) [Entitic vol] 9.8 fL Normal 9.5-13.5 [facility] Comment on above: Performed By: #### C BC #### [facility] [address] [place] [address] Dr. Marianne Mojica PLT 188 103/ul Normal 150-450 [facility] Comment on above: Performed By: #### C BC #### [facility] [address] [place] [address] Dr. Marianne Mojica RBC 3.51 106/ul Critically low 4.20-5.40 [facility] Comment on above: Performed By: #### C BC #### [facility] [address] [place] [address] Dr. Marianne Mojica WBC 9.2 103/ul Normal 4.0-11.0 [facility] Comment on above: Performed By: #### C BC #### [facility] [address] [place] [address] Dr. Marianne Mojica CBC AUTO DIFFon 10-15-2021 BASO # 0.0 103/ul Normal 0.0-0.1 [facility] Comment on above: Performed By: #### C BC #### [facility] [address] [place] [address] Dr. Marianne Mojica Basophils/100 WBC (Bld) 0.2 % Normal 0.2-2.0 [facility] Comment on above: Performed By: #### C BC #### [facility] [address] [place] [address] Dr. Marianne Mojica EO # 0.1 103/ul Normal 0.0-0.7 [facility] Comment on above: Performed By: #### C BC #### [facility] [address] [place] [address] Dr. Marianne Mojica Eosinophils/100 WBC (Bld) 0.6 % Critically low 0.9-7.0 [facility] Comment on above: Performed By: #### C BC #### [facility] [address] [place] [address] Dr. Marianne Mojica Erythrocyte distribution width (RBC) [Ratio] 13.2 % Normal 11.0-15.0 [facility] Comment on above: Performed By: #### C BC #### [facility] [address] [place] [address] Dr. Marianne Mojica Hematocrit (Bld) [Volume fraction] 37.2 % Normal 36.0-48.0 [facility] Comment on above: Performed By: #### C BC #### [facility] [address] [place] [address] Dr. Marianne Mojica Hemoglobin (Bld) [Mass/Vol] 12.2 g/dL Normal 12.0-16.0 [facility] Comment on above: Performed By: #### C BC #### [facility] [address] [place] [address] Dr. Marianne Mojica IG # 0.04 10e3/ul Critically high 0.00-0.03 [facility] Comment on above: Performed By: #### C BC #### [facility] [address] [place] [address] Dr. Marianne Mojica IG % 0.4 % Normal 0.0-0.5 [facility] Comment on above: Performed By: #### C BC #### [facility] [address] [place] [address] Dr. Marianne Mojica LYMPH # 2.6 103/ul Normal 1.2-3.8 [facility] Comment on above: Performed By: #### C BC #### [facility] [address] [place] [address] Dr. Marianne Mojica Lymphocytes/100 WBC (Bld) 27.0 % Normal 20.5-60.0 [facility] Comment on above: Performed By: #### C BC #### [facility] [address] [place] [address] Dr. Marianne Mojica MANUAL DIFF REQ NO Normal [facility] Comment on above: Performed By: #### C BC #### [facility] [facility] [address] [place] [address] Dr. Marianne Mojica MCH (RBC) [Entitic mass] 31.1 pg Normal 26.7-34.0 [facility] Comment on above: Performed By: #### C BC #### [facility] [address] [address] [address] Marianne Mojica MCHC (RBC) [Mass/Vol] 32.8 g/dL Normal 29.9-35.2 [facility] Comment on above: Performed By: #### C BC #### [facility] [address] [address] [address] Marianne Mojica MCV (RBC) [Entitic vol] 94.9 fL Normal 81.0-99.0 [facility] Comment on above: Performed By: #### C BC #### [facility] [address] [place] [address] Dr. Marianne Mojica MONO # 0.8 103/ul Normal 0.3-0.8 [facility] Comment on above: Performed By: #### C BC #### [facility] [address] [place] [address] Dr. Marianne Mojica Monocytes/100 WBC (Bld) 7.8 % Normal 1.7-12.0 [facility] Comment on above: Performed By: #### C BC #### [facility] [address] [place] [address] Dr. Marianne Mojica NEUT # 6.2 103/ul Normal 1.4-6.5 [facility] Comment on above: Performed By: #### C BC #### [facility] [address] [place] [address] Dr. Marianne Mojica Neutrophils/100 WBC (Bld) 64.0 % Normal 43.0-75.0 [facility] Comment on above: Performed By: #### C BC #### [facility] [address] [place] [address] Dr. Marianne Mojica Platelet mean volume (Bld) [Entitic vol] 10.5 fL Normal 9.5-13.5 [facility] Comment on above: Performed By: #### C BC #### [facility] [address] [address] [address] Marianne Mojica PLT 210 103/ul Normal 150-450 [facility] Comment on above: Performed By: #### C BC #### [facility] [address] [address] [address] Marianne Mojica RBC 3.92 106/ul Critically low 4.20-5.40 [facility] Comment on above: Performed By: #### C BC #### [facility] [address] [place], [place] [address] Dr. Marianne Mojica WBC 9.7 103/ul Normal 4.0-11.0 [facility] Comment on above: Performed By: #### C BC #### [facility] [address] [address] [address] Marianne Mojica Covid-19 PCR ([facility])on 09-18 SARS-CoV-2 (COVID-19) RNA VIRA+probe Ql (Unsp spec) Not detected Normal NOT DETECTED [facility] Comment on above: Result Comment: When [...] for this test is supported by the [place] of Health and Human Service's declaration that [...] used). Performed By: #### R PRQ #### [facility] [address] [place], [place] [id number] Carlos Hull DRUG SCREEN RAPID (URINE)on 10-15-2021 AMP Negative Normal NEGATIVE [facility] Comment on above: Performed By: #### R PRQ #### [facility] [address] [id number] Carlos Hull BAR Negative Normal NEGATIVE [facility] Comment on above: Performed By: #### R PRQ #### [facility] [address] [place] [address] Carlos Della BUP Negative Normal NEGATIVE [facility] Comment on above: Performed By: #### R PRQ #### [facility] [address] [place] [address] Carlos Della BZO Negative Normal NEGATIVE [facility] Comment on above: Performed By: #### R PRQ #### [facility] [address] [place] [address] Carlos Della BREE Negative Normal NEGATIVE [facility] Comment on above: Performed By: #### R PRQ #### [facility] [address] [place] [address] Carlos Della CUT-OFFS SEE BELOW Normal [facility] Comment on above: Result Comment: AMP [...] ng/mL Performed By: #### R PRQ #### [facility] [address] [place] [address] DRUG CUT HEADER DRUG CLASS TEST SYSTEM CUT-OFF CONCENTRATIONS ARE FOLLOWS: Normal [facility] Comment on above: Performed By: #### R PRQ #### [facility] [address] [place] [address] Carlos Della mAMP Negative Normal NEGATIVE [facility] Comment on above: Performed By: #### R PRQ #### [facility] [address] [place] [address] Carlos Della MTD Negative Normal NEGATIVE [facility] Comment on above: Performed By: #### R PRQ #### [facility] [address] [address] Carlos Della OPI Negative Normal NEGATIVE [facility] Comment on above: Performed By: #### R PRQ #### [facility] [address] [address] Carlos Della OXY Negative Normal NEGATIVE [facility] Comment on above: Performed By: #### R PRQ #### [facility] [address] [address] Carlos Della PCP Negative Normal NEGATIVE [facility] Comment on above: Performed By: #### R PRQ #### [facility] [address] [place] [address] Carlos Della PPX Negative Normal NEGATIVE [facility] Comment on above: Performed By: #### R PRQ #### [facility] [address] [place] [address] Carlos Della TCA Negative Normal NEGATIVE [facility] Comment on above: Performed By: #### R PRQ #### [facility] [address] [place] [address] Carlos Della THC Negative Normal NEGATIVE [facility] Comment on above: Performed By: #### R PRQ #### [facility] [address] [place] [address] Carlos Della TYPE AND SCREENon 10-15-2021 TYPE AND SCREEN Negative Normal [facility] Comment on above: Performed By: #### R PRQ #### [facility] [address] [place] [address] Carlos Della US PREG BIOPHY W NON [...] AYDE MIN Date: 2021-10-07 13:52 Normal [facility] CHLAMYDIA/GONOCOCCUS VIRA (SW AB/URINE/PAPon 10-06-2021 Chlamydia trachomatis, VIRA Negative Normal Negative [facility] Comment on above: Performed By: #### C T/NGNA #### [facility] [address] [place] [address] Dr. Marianne Mojica Neisseria gonorrhoeae, VIRA Negative Normal Negative [facility] Comment on above: Performed By: #### C T/NGNA #### [facility] [address] [address] [address] Marianne Mojica VAGINITIS/VAGINOSIS DNA PROB Travon 10-04-2021 Tory species Negative Normal Negative [facility] Comment on above: Performed By: #### R UBIGG #### [facility] [address] [place] [address] Carlos Della Gardnerella vaginalis Negative Normal Negative [facility] Comment on above: Performed By: #### R UBIGG #### [facility] [address] [place] [address] Carlos Della Trichomonas vaginalis Negative Normal Negative [facility] Comment on above: Performed By: #### R UBIGG #### [facility] [address] [place] [address] Carlos Hull GROUP B STREP CULTUREon 09-16 S. agalactiae Ag Ql (Unsp spec) Culture Observations: NEGATIVE FOR GROUP B STREPTOCOCCUS. Normal [facility] Comment on above: Performed By: #### G BSCX #### [facility] [address] [place] [address] Dr. Marianne Mojica US PREG PLACENTAon US [...] AYDE MIN Date: 2021-07-29 12:05 Normal [facility] GLUCOSE - 1HRon 07-11-2021 Glucose [Mass/Vol] 71 mg/dL Critically low 74-106 [facility] Comment on above: Performed By: #### R UBIGG #### [facility] [address] [place], [place] [id number] Carlos Della HEMOGRAM AND PLATELon 2020 Hematocrit (Bld) [Volume fraction] 36.2 % Normal 36.0-48.0 [facility] Comment on above: Performed By: #### R UBIGG #### [facility] [address] [place] [address] Carlos Della Hemoglobin (Bld) [Mass/Vol] 11.8 g/dL Critically low 12.0-16.0 [facility] Comment on above: Performed By: #### R UBIGG #### [facility] [address] [place] [address] Carlos Della MCH (RBC) [Entitic mass] 31.4 pg Normal 26.7-34.0 [facility] Comment on above: Performed By: #### R UBIGG #### [facility] [address] [place] [address] Carlosgaurang Wicken MCHC (RBC) [Mass/Vol] 32.6 g/dL Normal 29.9-35.2 [facility] Comment on above: Performed By: #### R UBIGG #### [facility] [address] [place] [address] Carlos Della MCV (RBC) [Entitic vol] 96.3 fL Normal 81.0-99.0 [facility] Comment on above: Performed By: #### R UBIGG #### [facility] [address] [place] [address] Carlos Della PLT 234 103/ul Normal 150-450 [facility] Comment on above: Performed By: #### R UBIGG #### [facility] [address] [place], [place] [address] Carlos Della RBC 3.76 106/ul Critically low 4.20-5.40 [facility] Comment on above: Performed By: #### R UBIGG #### [facility] [address] [place], [place] [address] Carlos Hull WBC 9.1 103/ul Normal 4.0-11.0 [facility] Comment on above: Performed By: #### R UBIGG #### [facility] [address] [place], [place] [address] Carlos Hull US PREG ANATOMY SINGLEon US [...] 59th percentile by ultrasound and expected FL/AC: 0.778316 FL/BPD: 0.019813 HC/AC: 1.083541 GESTATIONAL AGE: Age by EDC: 20 weeks, 0 days NELA by EDC: 10/22/2021 Age by current US: 20 weeks, 0 days NELA by current US: 10/22/2021 IMPRESSION: 1. Single live intrauterine with growth detailed above. 2. Low-lying fundal/posterior placenta. Electronically authenticated by: AYDE MIN Date: 2021-06-04 12:07 Normal [facility] AFP MATERNAL FOR SPINA BIFID Aon 05-21-2021 AFP MoM 0.95 Normal [facility] Comment on above: Performed By: #### A FPMAT #### [facility] [address] [address] Carlos Hull AFP Value 37.7 ng/mL Normal [facility] Comment on above: Performed By: #### A FPMAT #### [facility] [address] [address] Carlos Hull AFP, Serum for Spina Bifida Report Normal [facility] Comment on above: Performed By: #### A FPMAT #### [facility] [address] [address] Carlos Hull Comment Comment Normal [facility] Comment on above: Result Comment: Shekhar Lincoln, Ph.D., [facility] Director . References: Available Upon Request. . Multiples Of Median Cutoffs For AFP Elevations Sommer 2.5 Black 2.8 IDD 2.0 Twins 4.5 Abbreviation Definitions IDD - Insulin Dep Diabetes OSBR - Open Spina Bifida Risk . For further inquiries contact [employer] at [phone]. Performed By: #### A FPMAT #### [facility] [address] [address] Carlos Della Gest Age Collection Date 17.6 weeks Normal [facility] Comment on above: Performed By: #### A FPMAT #### [facility] [address] [address] Carlos Hull Gestat, Age Based on Ultrasound Normal [facility] Comment on above: Result Comment: 11:0 on 04/02/2021 Recalculations are not recommended when gestational dating by LMP and ultrasound are within 10 days. Performed By: #### A FPMAT #### [facility] [address] [address] Carlos Wicken Insulin Dep Diabetes No Normal [facility] Comment on above: Performed By: #### A FPMAT #### [facility] [address] [address] Carlos Hull Interpretation Comment Normal [facility] Comment on above: Result Comment: Inte [...] Customer Services to discuss available options. The [place] recommends amniocentesis be offered to women age 35 and older. Performed By: #### A FPMAT #### [facility] [address] [place] [address] Carlos Della [age] Normal [facility] Comment on above: Performed By: #### A FPMAT #### [facility] [address] [place] [address] Carlos Della Multiple Gestation No Normal [facility] Comment on above: Performed By: #### A FPMAT #### [facility] [address] [place] [address] Carlos Della [place] [address] Normal [facility] Comment on above: Performed By: #### A FPMAT #### [facility] [address] [place] [address] Carlos Della PDF . Normal [facility] Comment on above: Performed By: #### A FPMAT #### [facility] [address] [place] [address] Carlos Della Race Normal [facility] Comment on above: Performed By: #### A FPMAT #### [facility] [address] [place] [address] Carlos Della Test Results: Negative Normal [facility] Comment on above: Performed By: #### A FPMAT #### [facility] [address] [place] [address] Carlos Della Cult,Urineon 05-01-2021 Cult,Urine Specimen Description .Random Urine Special Requests NOT REPORTED Culture NO GROWTH Report Status FINAL 05/01/2021 Normal [facility] Comment on above: Performed By: #### U #### [facility] [address] [place], [place] [id number] Reticle Printer: Sekou Fraser MD [facility] [address] [place] [address] Reticle Printer: Campos Chandra MD US PREG PLACENTAon US [...] by: YURIY WISE Date: 2021-04-30 23:35 Normal [facility] ABO/RHOrdered By: Venecia marinelli on 04-30-2021 ABO/Rh Positive [facility] Work Phone: [facility] Work Phone: ABO/Rh(D)on 04-30-2021 ABO/Rh(D) Positive Normal [facility] Comment on above: Performed By: #### A [facility] #### [facility] [address] [place] [address] Reticle Printer: Campos Chandra MD CBC Auto DifferentialOrdered By: Venecia Patterson on 04-30-2021 Absolute Eos # 0.00 [facility] Work Phone: Absolute Immature Granulocyte NOT REPORTED [facility] [place] [facility] Work Phone: Absolute Lymph # 2.70 [facility] Work Phone: Absolute [place] # 0.[address] [facility] Work Phone: Basophils (Bld) [#/Vol] 0.00 10*3/uL [employer] Work Phone: Basophils/100 WBC (Bld) 0 % 0 - 2 % [facility] [employer] Work Phone: Differential Type YES [facility] Work Phone: Eosinophils/100 WBC (Bld) 0 % 0 - 5 % [employer] Work Phone: Hematocrit (Bld) [Volume fraction] 36.7 % 36 - 46 % [employer] Work Phone: Hemoglobin.gastrointest inal spec 1 Ql (Stl) 12.5 g/dL 12.0 - 16.0 g/dL [employer] Phone: Immature Granulocytes NOT REPORTED 0 % M [employer] Work Phone: Lymphocytes/100 WBC (Bld) 30 % 15 - 40 % [facility] Work Phone: MCH (RBC) [Entitic mass] 30.6 pg 26 - 34 pg [employer] [facility] Phone: MCHC (RBC) [Mass/Vol] 34.2 g/dL 31 - 37 g/dL [facility] [employer] Work Phone: MCV (RBC) [Entitic vol] 89.7 fL 80 - 100 fL [employer] [facility] Phone: Monocytes/100 WBC (Bld) 5 % 4 - 8 % [facility] [employer] Work Phone: NRBC Automated NOT REPORTED per 100 WBC [facility] Work Phone: Platelet distribution width (Bld) [Ratio] 12.8 % 12.1 - 15.2 % [employer] [facility] Phone: Platelet Estimate NOT REPORTED [employer] [facility] Phone: Platelet mean volume (Bld) [Entitic vol] NOT REPORTED 6.0 - 12.0 fL [employer] [facility] Phone: Platelets (Bld) [#/Vol] 271 10*3/uL [employer] [facility] Phone: RBC (Bld) [#/Vol] 4.09 10*6/uL 4.0 - 5.2 m/uL [employer] [facility] Phone: RBC (Bld) [#/Vol] NOT REPORTED [employer] [facility] Phone: Segmented neutrophils/100 WBC (Bld) 65 % 47 - 75 % [employer] Phone: Segs Absolute 5.70 [employer] [facility] Work Phone: WBC (Bld) [#/Vol] 8.9 10*3/uL [employer] [facility] Phone: WBC (Bld) [#/Vol] NOT REPORTED [facility] Phone: [employer] [facility] Phone: CBC with Diffon 04-30-2021 Abs. Basophil 0.00 k/uL Normal 0.0-0.2 [facility] Comment on above: Performed By: #### M Bienvenido CMPX, CDP #### [facility] [address] [place] [address] Reticle Printer: Campos Chandra MD Abs.Neutrophil (Seg) 5.70 k/uL Normal 2.5-7.0 [facility] Comment on above: Performed By: #### M Bienvenido, CMPX, CDP #### [facility] [address] [place] [address] Reticle Printer: Campos Chandra MD Auto Diff Performed YES Normal [facility] Comment on above: Performed By: #### M G, CMPX, CDP #### [facility] [address] [place] [address] Reticle Printer: Campos Chandra MD Basophils/100 WBC (Bld) 0 % Normal 0-2 [facility] Comment on above: Performed By: #### M Bienvenido CMPX, CDP #### [facility] [address] [place], [place] [id number] Reticle Printer: Campos Chandra MD Eosinophils (Bld) [#/Vol] 0.00 10*3/uL Normal 0.0-0.4 [facility] Comment on above: Performed By: #### Jaime Faria CMPX, CDP #### [facility] [address] [place] [address] Reticle Printer: Campos Chandra MD Eosinophils/100 WBC (Bld) 0 % Normal 0-5 [facility] Comment on above: Performed By: #### Jaime Faria CMPX, CDP #### [facility] [address] [place] [address] Reticle Printer: Campos Chandra MD Erythrocyte distribution width (RBC) [Ratio] 12.8 % Normal 12.1-15.2 [facility] Comment on above: Performed By: #### Jaime Faria CMPX, CDP #### [facility] [address] [id number] Reticle Printer: Campos Chandra MD Hematocrit (Bld) [Volume fraction] 36.7 % Normal 36-46 [facility] Comment on above: Performed By: #### Jaime Faria CMPX, CDP #### [facility] [address] [place] [address] Reticle Printer: Campos Chandra MD Hemoglobin (Bld) [Mass/Vol] 12.5 g/dL Normal 12.0-16.0 [facility] Comment on above: Performed By: #### Jaime Faria CMPX, CDP #### [facility] [address] [place], [place] [id number] Reticle Printer: Campos Chandra MD Lymphocytes (Bld) [#/Vol] 2.70 10*3/uL Normal 1.0-4.8 [facility] Comment on above: Performed By: #### Jaime Faria CMPX, CDP #### [facility] [address] [place] [address] Reticle Printer: Campos Chandra MD Lymphocytes/100 WBC (Bld) 30 % Normal 15-40 [facility] Comment on above: Performed By: #### Jaime Faria CMPX, CDP #### [facility] [address] [id number] Reticle Printer: Campos Chandra MD MCH (RBC) [Entitic mass] 30.6 pg Normal 26-34 [facility] Comment on above: Performed By: #### Jaime Faria CMPX, CDP #### [facility] [address] [phone] Reticle Printer: Campos Chandra MD MCHC (RBC) [Mass/Vol] 34.2 g/dL Normal 31-37 [facility] Comment on above: Performed By: #### Jaime Faria CMPX, CDP #### [facility] [address] [place] [address] Reticle Printer: Campos Chandra MD MCV (RBC) [Entitic vol] 89.7 fL Normal 80-100 M [facility] Comment on above: Performed By: #### Jaime Faria CMPX, CDP #### [facility] [address] [place] [address] Reticle Printer: Campos Chandra MD Monocytes (Bld) [#/Vol] 0.50 10*3/uL Normal 0.0-1.0 [facility] Comment on above: Performed By: #### Jaime Faria CMPX, CDP #### [facility] [address] [place] [address] Reticle Printer: Campos Chandra MD Monocytes/100 WBC (Bld) 5 % Normal 4-8 [facility] Comment on above: Performed By: #### M Bienvenido, CMPX, CDP #### [facility] [address] [place] [address] Reticle Printer: Campos Chandra MD Neutrophil (Seg) 65 % Normal 47-75 [facility] Comment on above: Performed By: #### M Bienvenido, CMPX, CDP #### [facility] [address] [phone] Reticle Printer: Campos Chandra MD Platelets (Bld) [#/Vol] 271 10*3/uL Normal 140-450 [facility] Comment on above: Performed By: #### Jaime Fraia, CMPX, CDP #### [facility] [address] [phone] Reticle Printer: Campos Chandra MD RBC (Bld) [#/Vol] 4.09 10*6/uL Normal 4.0-5.2 [facility] Comment on above: Performed By: #### Jaime Faria CMPX, CDP #### [facility] [address] [place] [address] Reticle Printer: Campos Chandra MD WBC (Bld) [#/Vol] 8.9 10*3/uL Normal 3.5-11.0 [facility] Comment on above: Performed By: #### Jaime Faria CMPX, CDP #### [facility] [address] [place] [address] Reticle Printer: Campos Chandra MD Abs.Imm.Granulocyte NOT REPORTED Normal 0.00-0.30 [facility] Comment on above: Performed By: #### M Bienvenido, CMPX, CDP #### [facility] [address] [place] [address] Reticle Printer: Campos Chandra MD Immature Granulocyte NOT REPORTED Normal 0 [facility] Comment on above: Performed By: #### M G, CMPX, CDP #### [facility] [address] [place] [address] Reticle Printer: Campos Chandra MD MPV NOT REPORTED Normal 6.0-12.0 [facility] Comment on above: Performed By: #### M Bienvenido, CMPX, CDP #### [facility] [address] [place] [address] Reticle Printer: Campos Chandra MD NRBC Automated NOT REPORTED Normal [facility] Comment on above: Performed By: #### M Bienvenido, CMPX, CDP #### [facility] [address] [place], [place] [id number] Reticle Printer: Campos Chandra MD Platelet Estimate NOT REPORTED Normal [facility] Comment on above: Performed By: #### M Bienvenido, CMPX, CDP #### [facility] [address] [place], [place] [id number] Reticle Printer: Campos Chandra MD RBC morphology finding Nom (Bld) NOT REPORTED Normal [facility] Comment on above: Performed By: #### M Bienvenido CMPX, CDP #### [facility] [address] [place], [place] [id number] Reticle Printer: Campos Chandra MD WBC Morphology NOT REPORTED Normal [facility] Comment on above: Performed By: #### Jaime Faria CMPX, CDP #### [facility] [address] [place], [place] [id number] Reticle Printer: Campos Chandra MD Comp Metabolic Pr/rfx MGon 0 - Potassium [Moles/Vol] 3.5 mmol/L Low 3.7-5.3 [facility] Comment on above: Performed By: #### M Bienvenido, CMPX, CDP #### [facility] [address] [place] [address] Reticle Printer: Campos Chandra MD (cont.) Normal [facility] Comment on above: Result Comment: Aver age GFR for 30-39 years old: 107 mL/min/1.73sq m Chronic Kidney Disease: <60 mL/min/1.73sq m Kidney failure: <15 mL/min/1.73sq m eGFR calculated using average adult body mass. Additional eGFR calculator available at: http://www.[address]/multiple_crcl_2011.htm Performed By: #### M Bienvenido, CMPX, CDP #### [facility] [address] [place] [address] Reticle Printer: Campos Chandra MD Albumin [Mass/Vol] 3.8 g/dL Normal 3.5-5.2 [facility] Comment on above: Performed By: #### Jaime Faria CMPX, CDP #### [facility] [address] [place] [address] Reticle Printer: Campos Chandra MD Alkaline Phos 56 U/L Normal 35-104 [facility] Comment on above: Performed By: #### Jaime Faria CMPX, CDP #### [facility] [address] [place] [address] Reticle Printer: Campos Chandra MD ALT [Catalytic activity/Vol] 13 U/L Normal 5-33 [facility] Comment on above: Performed By: #### Jaime Faria CMPX, CDP #### [facility] [address] [place] [address] Reticle Printer: Campos Chandra MD Anion gap [Moles/Vol] 10 mmol/L Normal 9-17 [facility] Comment on above: Performed By: #### M Bienvenido, CMPX, CDP #### [facility] [address] [place], [place] [id number] Reticle Printer: Campos Chandra MD AST [Catalytic activity/Vol] 16 U/L Normal <32 [facility] Comment on above: Performed By: #### Jaime Faria, CMPX, CDP #### [facility] [address] [place] [address] Reticle Printer: Campos Chandra MD Bilirubin [Mass/Vol] 0.23 mg/dL Low 0.30-1.20 [facility] Comment on above: Performed By: #### M G, CMPX, CDP #### [facility] [address], [place] [id number] Reticle Printer: Campos Chandra MD BUN/CRE Ratio 18 Normal 9-20 [facility] Comment on above: Performed By: #### M Bienvenido, CMPX, CDP #### [facility] [address], [place] [id number] Reticle Printer: Campos Chandra MD Calcium [Mass/Vol] 9.2 mg/dL Normal 8.6-10.4 [facility] Comment on above: Performed By: #### Jaime Faria CMPX, CDP #### [facility] [address], [place] [id number] Reticle Printer: Campos Chandra MD Chloride [Moles/Vol] 105 mmol/L Normal 98-107 [facility] Comment on above: Performed By: #### M Bienvenido CMPX, CDP #### [facility] [address] [place] [address] Reticle Printer: Campos Chandra MD CO2 [Moles/Vol] 23 mmol/L Normal 20-31 [facility] Comment on above: Performed By: #### M Bienvenido, CMPX, CDP #### [facility] [address] [place] [address] Reticle Printer: Campos Chandra MD Creatinine [Mass/Vol] 0.44 mg/dL Low 0.50-0.90 [facility] Comment on above: Performed By: #### M Bienvenido, CMPX, CDP #### [facility] [address], [place] [id number] Reticle Printer: Campos Chandra MD GFR, Amer >60 Normal >60 [facility] Comment on above: Performed By: #### M Bienvenido, CMPX, CDP #### [facility] [address], [place] [id number] Reticle Printer: Campos Chandra MD GFR,non Amer >60 Normal >60 [facility] Comment on above: Performed By: #### M Bienvenido, CMPX, CDP #### [facility] [address], [place] [id number] Reticle Printer: Campos Chandra MD Glucose [Mass/Vol] 90 mg/dL Normal 70-99 [facility] Comment on above: Performed By: #### Jaime Faria CMPX, CDP #### [facility] [address], [place] [id number] Reticle Printer: Campos Chandra MD Protein [Mass/Vol] 7.0 g/dL Normal 6.4-8.3 [facility] Comment on above: Performed By: #### Jaime Faria CMPX, CDP #### [facility] [address], [place] [id number] Reticle Printer: Campos Chandra MD Sodium [Moles/Vol] 138 mmol/L Normal 135-144 [facility] Comment on above: Performed By: #### Jaime Faria CMPX, CDP #### [facility] [address], [place] [id number] Reticle Printer: Campos Chandra MD Urea nitrogen [Mass/Vol] 8 mg/dL Normal 6-20 [facility] Comment on above: Performed By: #### M Bienvenido, CMPX, CDP #### [facility] [address], [place] [id number] Reticle Printer: Campos Chandra MD Albumin/Glob Ratio NOT REPORTED Normal 1.0-2.5 [facility] Comment on above: Performed By: #### M Bienvenido, CMPX, CDP #### [facility] [address] [place] [address] Reticle Printer: Campos Chandra MD Staging: NOT REPORTED Normal [facility] Comment on above: Performed By: #### M G, CMPX, CDP #### [facility] [address] [place] [address] Reticle Printer: Campos Chandra MD Comprehensive Metabolic Pane l w/ Reflex to MGOrdered By: Venecia Patterson on 04-30-2021 Albumin [Mass/Vol] 3.8 g/dL 3.5 - 5.2 g/dL [facility] Phone: Albumin/Globulin Ratio NOT REPORTED [facility] Phone: ALP (Bld) [Catalytic activity/Vol] 56 U/L 35 - 104 U/L [facility] Phone: ALT [Catalytic activity/Vol] 13 U/L 5 - 33 U/L [facility] Phone: Anion gap [Moles/Vol] 10 mmol/L 9 - 17 mmol/L [facility] Phone: AST [Catalytic activity/Vol] 16 U/L <32 [facility] Phone: Bilirubin [Mass/Vol] 0.23 mg/dL Low 0.30 - 1.20 mg/dL [facility] Phone: Calcium [Mass/Vol] 9.2 mg/dL 8.6 - 10. 4 mg/dL [facility] Phone: Chloride [Moles/Vol] 105 mmol/L 98 - 10 7 mmol/L [facility] Phone: CO2 [Moles/Vol] 23 mmol/L 20 - 31 mmol/L [facility] Phone: Creatinine [Mass/Vol] 0.44 mg/dL Low 0.50 - 0.90 mg/dL [facility] Phone: Free PSA/Total PSA [Mass fraction] 7.0 g/dL 6.4 - 8.3 g/dL [facility] Phone: GFR >60 >60 mL/min [facility] Phone: GFR Non- >60 >60 mL/min [facility] Phone: GFR/1.73 sq M.predicted MDRD (S/P/Bld) [Vol rate/Area] [facility] Phone: Comment on above: Average GFR for 30-3 9 years old: 107 mL/min/1.73sq m Chronic Kidney Disease: <60 mL/min/1.73sq m Kidney failure: <15 mL/min/1.73sq m eGFR calculated using average adult body mass. Additional eGFR calculator available at: http://www.[address]/multiple_crcl_2012.htm GFR/1.73 sq M.predicted MDRD (S/P/Bld) [Vol rate/Area] NOT REPORTED [facility] Phone: Glucose [Mass/Vol] 90 mg/dL 70 - 99 mg/dL [facility] Phone: Interpretation and review of laboratory results Abnormal [facility] Phone: Potassium [Moles/Vol] 3.5 mmol/L Low 3.7 - 5.3 mmol/L [facility] Phone: Sodium [Moles/Vol] 138 mmol/L 135 - 144 mmol/L [facility] Phone: Urea nitrogen (BldV) [Mass/Vol] 8 mg/dL 6 - 20 mg/dL [facility] Phone: Urea nitrogen/Creatinine (Bld) [Mass ratio] 18 [facility] Phone: [facility] Phone: Drug Scr, Abuse, Uron 07-15- 2021 Amphetamine(s),Ur Negative Normal NEG [facility] Comment on above: Result Comment: (Positive cutoff 500 ng/mL) Performed By: #### U MICAO, UA, DIOGENES #### [facility] [address] [place] [address] Reticle Printer: Campos Chandra MD Barbiturate(s),Ur Negative Normal NEG [facility] Comment on above: Result Comment: (Positive cutoff 200 ng/mL) Performed By: #### U MICAO, UA, DIOGENES #### [facility] [address] [place] [address] Reticle Printer: Campos Chandra MD Benzodiazepine(s) Negative Normal NEG [facility] Comment on above: Result Comment: (Positive cutoff 150 ng/mL) Performed By: #### U MICAO, UA, DIOGENES #### [facility] [address] [place] [address] Reticle Printer: Campos Chandra MD Cannabinoid(s),Ur Negative Normal NEG [facility] Comment on above: Result Comment: (Positive cutoff 50 ng/mL) Performed By: #### U MICAO, UA, DIOGENES #### [facility] [address] [place] [address] Reticle Printer: Campos Chandra MD Cocaine Metabolite Negative Normal [facility] Comment on above: Result Comment: (Positive cutoff 150 ng/mL) Performed By: #### U MICAO, UA, DIOGENES #### [facility] [address] [place] [address] Reticle Printer: Campos Chandra MD Methadone Ql (U) Negative Normal NEG [facility] Comment on above: Result Comment: (Positive cutoff 200 ng/mL) Performed By: #### U MICAO, UA, DIOGENES #### [facility] [address], [place] [id number] Reticle Printer: Campos Chandra MD Methamphetamine, Ur Negative Normal NEG [facility] Comment on above: Result Comment: (Positive cutoff 500 ng/mL) Performed By: #### U MICAO, UA, DIOGENES #### [facility] [address], [place] [id number] Reticle Printer: Campos Chandra MD Opiate(s), Ur Negative Normal NEG [facility] Comment on above: Result Comment: (Positive cutoff 100 ng/mL) Performed By: #### U MICAO, UA, DIOGENES #### [facility] [address], [place] [id number] Reticle Printer: Campos Chandra MD Oxycodone, Urine Negative Normal NEG [facility] Comment on above: Result Comment: (Positive cutoff 100 ng/mL) Performed By: #### U MICAO, UA, DIOGENES #### [facility] [address] [place] [phone] Reticle Printer: Campos Chandra MD Phencyclidine, Ur Negative Normal NEG [facility] Comment on above: Result Comment: (Positive cutoff 25 ng/mL) Performed By: #### U MICAO, UA, DIOGENES #### [facility] [address] [place] [address] Reticle Printer: Campos Chandra MD Propoxyphene,Urine Negative Normal [facility] Comment on above: Result Comment: (Positive cutoff 300 ng/mL) Performed By: #### U MICAO, UA, DIOGENES #### [facility] [address] [place] [address] Reticle Printer: Campos Chandra MD Tricyclic antidepressants Screen Ql (U) Negative Normal NEG [facility] Comment on above: Result Comment: (Positive cutoff 300 ng/mL) Drug screen results are to be used for medical purposes only. All positive results are unconfirmed. Testing for employment or legal uses should be sent to a reference laboratory for confirmation. Performed By: #### U MICAO, UA, DIOGENES #### [facility] [address], [place] [id number] Reticle Printer: Campos Chandra MD Buprenorphrine, Ur NOT REPORTED Normal NEG [facility] Comment on above: Performed By: #### U MICAO, UA, DIOGENES #### [facility] [address], [place] [phone] Reticle Printer: Campos Chandra MD Interpretive Info NOT REPORTED Normal [facility] Comment on above: Performed By: #### U MICAO, UA, DIOGENES #### [facility] [address], [place] [id number] Reticle Printer: Campos Chandra MD MDMA, Urine NOT REPORTED Normal NEG [facility] Comment on above: Performed By: #### U MICAO, UA, DIOGENES #### [facility] [address] [place] [address] Reticle Printer: Campos Chandra MD Drug screen multi urineOrder ed By: Venecia Patterson on 04-30-2021 Amphetamine Screen, Ur Negative NEGATIVE [facility] [employer] Work Phone: Comment on above: (Positive cutoff 500 ng/mL) Barbiturate Screen, Ur Negative NEGATIVE [facility] Work Phone: Comment on above: (Positive cutoff 200 ng/mL) Benzodiazepine Screen, Urine Negative NEGATIVE [facility] Work Phone: Comment on above: (Positive cutoff 150 ng/mL) Buprenorphine Urine NOT REPORTED NEGATIVE [facility] Work Phone: Cannabinoid Scrn, Ur Negative NEGATIVE [facility] [employer] Work Phone: Comment on above: (Positive cutoff 50 ng/mL) Cocaine Metabolite, Urine Negative NEGATIVE [facility] Work Phone: Comment on above: (Positive cutoff 150 ng/mL) MDMA, Urine NOT REPORTED NEGATIVE [facility] Work Phone: Methadone Screen, Urine Negative NEGATIVE [facility] [employer] Work Phone: Comment on above: (Positive cutoff 200 ng/mL) Methamphetamine, Urine Negative NEGATIVE [facility] Work Phone: Comment on above: (Positive cutoff 500 ng/mL) Opiates, Urine Negative NEGATIVE [facility] Work Phone: Comment on above: (Positive cutoff 100 ng/mL) Oxycodone Screen, Ur Negative NEGATIVE [facility] Work Phone: Comment on above: (Positive cutoff 100 ng/mL) Phencyclidine, Urine Negative NEGATIVE [facility] Work Phone: Comment on above: (Positive cutoff 25 ng/mL) Propoxyphene, Urine Negative NEGATIVE [facility] Work Phone: Comment on above: (Positive cutoff 300 ng/mL) Test Information NOT REPORTED [facility] Work Phone: Tricyclic Antidepressants, Urine Negative NEGATIVE [facility] Work Phone: Comment on above: (Positive cutoff 300 ng/mL) Drug screen results are to be used for medical purposes only. All positive results are unconfirmed. Testing for employment or legal uses should be sent to a reference laboratory for confirmation. [facility] [employer] Phone: HCG, Quanton 04-30-2021 HCG, Quant 51362 IU/L High <5 [facility] Comment on above: Result Comment: Non-preg [...] liver. Performed By: #### B HCG #### [facility] [address] [place] [address] Reticle Printer: Campos Chandra MD Magnesiumon 04-30-2021 Magnesium [Mass/Vol] 1.8 mg/dL Normal 1.6-2.6 [facility] Comment on above: Performed By: #### M G, CMPX, CDP #### [facility] [address] [place] [address] Reticle Printer: Campos Chandra MD MagnesiumOrdered By: Venecia liu on 04-30-2021 Magnesium [Mass/Vol] 1.8 mg/dL 1.6 - 2 .6 mg/dL [facility] [employer] Work Phone: [facility] [employer] Work Phone: Microscopic UrinalysisOrdere d By: Venecia Patterson on 04-30-2021 - [facility] Work Phone: Amorphous, UA NOT REPORTED None [facility] Work Phone: Bacteria, UA NOT REPORTED None [facility] Work Phone: Casts UA NOT REPORTED /LPF [facility] Work Phone: Crystals, UA NOT REPORTED None /HPF [facility] Work Phone: Epithelial Cells UA NOT REPORTED /HPF [facility] Work Phone: Mucus, UA NOT REPORTED None [facility] Work Phone: Other Observations UA NOT REPORTED NOT REQ. [facility] Work Phone: RBC, UA LOADED [facility] Work Phone: Renal Epithelial, UA NOT REPORTED 0 /HPF [facility] Work Phone: Trichomonas, UA NOT REPORTED None [facility] Work Phone: WBC, UA 2 TO 5 0 /HPF [facility] Work Phone: Yeast, UA NOT REPORTED None [facility] Work Phone: [facility] Work Phone: Urinalysis, Routineon 2020 Bilirubin, SemiQt,Ur Negative Normal NEG [facility] Comment on above: Performed By: #### U MICAO, UA, DIOGENES #### [facility] [address], [place] [phone] Reticle Printer: Campos Chandra MD Blood, Urine 3+ Abnormal NEG [facility] Comment on above: Performed By: #### U MICAO, UA, DIOGENES #### [facility] [address], [place] [phone] Reticle Printer: Campos Chandra MD Clarity (U) CLOUDY Abnormal CLEAR [facility] Comment on above: Performed By: #### U MICAO, UA, DIOGENES #### [facility] [address], [place] [phone] Reticle Printer: Campos Chandra MD Color (U) YELLOW Normal YEL [facility] Comment on above: Performed By: #### U MICAO, UA, DIOGENES #### [facility] [address], [place] [id number] Reticle Printer: Campos Chandra MD Comment Normal [facility] Comment on above: Performed By: #### U MICAO, UA, DIOGENES #### [facility] [address], [place] [id number] Reticle Printer: Campos Chandra MD Glucose Ql (U) Negative Normal NEG [facility] Comment on above: Performed By: #### U MICAO, UA, DIOGENES #### [facility] [address] [place] [address] Reticle Printer: Campos Chandra MD Ketones Ql (U) Negative Normal NEG [facility] Comment on above: Performed By: #### U MICAO, UA, DIOGENES #### [facility] [address] [place] [address] Reticle Printer: Campos Chandra MD Leukocyte esterase Test strip Ql (U) 1+ Abnormal NEG [facility] Comment on above: Performed By: #### U MICAO, UA, DIOGENES #### [facility] [address], [place] [id number] Reticle Printer: Campos Chandra MD Nitrite,Ur Negative Normal NEG [facility] Comment on above: Performed By: #### U MICAO, UA, DIOGENES #### [facility] [address], [place] [id number] Reticle Printer: Campos Chandra MD PH,Ur 5.0 Normal 5.0-8.0 [facility] Comment on above: Performed By: #### U MICAO, UA, DIOGENES #### [facility] [address] [place] [address] Reticle Printer: Campos Chandra MD Protein Ql (U) 3+ Abnormal NEG [facility] Comment on above: Performed By: #### U MICAO, UA, DIOGENES #### [facility] [address] [place] [address] Reticle Printer: Campos Chandra MD Spec. [place],Ur 1.025 Normal 1.005-1.030 [facility] Comment on above: Performed By: #### U MICAO, UA, DIOGENES #### [facility] [address], [place] [phone] Reticle Printer: Campos Chandra MD Urobilinogen,Ur Normal Normal NORM [facility] Comment on above: Performed By: #### U MICAO, UA, DIOGENES #### [facility] [address], [place] [id number] Reticle Printer: Campos Chandra MD Urinalysis, reflex to micros copicOrdered By: Venecia Patterson on 04-30-2021 Bilirubin Urine Negative NEGATIVE [facility] Work Phone: Color, UA YELLOW YELLOW [facility] Work Phone: Glucose, Ur Negative NEGATIVE [facility] Work Phone: Interpretation and review of laboratory results Abnormal [employer] [facility] Phone: Ketones Ql (U) Negative NEGATIVE [facility] Work Phone: Leukocyte esterase Test strip Ql (U) 1+ Abnormal NEGATIVE [facility] Phone: Nitrite, Urine Negative NEGATIVE [facility] Work Phone: pH, UA 5.0 [facility] Work Phone: Protein, UA 3+ Abnormal NEGATIVE [facility] Work Phone: Specific [place], UA 1.025 [employer] Phone: Turbidity UA CLOUDY Abnormal CLEAR [facility] Phone: Urinalysis Comments [facility] Phone: Urine Hgb 3+ Abnormal NEGATIVE [facility] Phone: Urobilinogen, Urine Normal Normal [facility] Work Phone: [facility] Phone: Urinalysis,Microon 1 ----- Normal [facility] Comment on above: Performed By: #### U MICAO, UA, DIOGENES #### [facility] [address] [place] [address] Reticle Printer: Campos Chandra MD Urine RBC's LOADED Normal 0-2 [facility] Comment on above: Performed By: #### U MICAO, UA, DIOGENES #### [facility] [address] [place] [address] Reticle Printer: Campos Chandra MD Urine WBC's 2 TO 5 Normal 0 [facility] Comment on above: Performed By: #### U MICAO, UA, DIOGENES #### [facility] [address] [place] [address] Reticle Printer: Campos Chandra MD Amorphous sediment LM Ql (Urine sed) NOT REPORTED Normal NONE [facility] Comment on above: Performed By: #### U MICAO, UA, DIOGENES #### [facility] [address] [place] [address] Reticle Printer: Campos Chandra MD Bacteria NOT REPORTED Normal NONE [facility] Comment on above: Performed By: #### U MICAO, UA, DIOGENES #### [facility] [address] [place] [address] Reticle Printer: Campos Chandra MD Casts NOT REPORTED Normal [facility] Comment on above: Performed By: #### U MICAO, UA, DIOGENES #### [facility] [address] [place] [address] Reticle Printer: Campos Chandra MD Crystals LM Nom (Urine sed) NOT REPORTED Normal NONE [facility] Comment on above: Performed By: #### U MICAO, UA, DIOGENES #### [facility] [address] [place] [address] Reticle Printer: Campos Chadnra MD Epithelial cells LM Ql (Urine sed) NOT REPORTED Normal [facility] Comment on above: Performed By: #### U MICAO, UA, DIOGENES #### [facility] [address] [place] [address] Reticle Printer: Campos Chandra MD Epithelial, Renal NOT REPORTED Normal 0 [facility] Comment on above: Performed By: #### U MICAO, UA, DIOGENES #### [facility] [address] [place] [address] Reticle Printer: Campos Chandra MD Mucus Strands NOT REPORTED Normal NONE [facility] Comment on above: Performed By: #### U MICAO, UA, DIOGENES #### [facility] [address] [place] [address] Reticle Printer: Campos Chandra MD Other Observations NOT REPORTED Normal NREQ [facility] Comment on above: Performed By: #### U MICAO, UA, DIOGENES #### [facility] [address] [place] [address] Reticle Printer: Campos Chandra MD Trichomonas NOT REPORTED Normal NONE [facility] Comment on above: Performed By: #### U MICAO, UA, DIOGENES #### [facility] [address] [place] [address] Reticle Printer: Campos Chandra MD Yeast NOT REPORTED Normal NONE [facility] Comment on above: Performed By: #### U MICAO, UA, DIOGENES #### [facility] [address], [place] [id number] Reticle Printer: Campos Chandra MD hCG, quantitative, Ordered By: Venecia Patterson on 04-30-2021 hCG Quant [id number] High <5 IU/L [facility] Phone: Comment on above: Non-preg premeno <=5 Postmeno <=8 Male <=3 If HCG results do not concur with clinical observations, additional testing to confirm results is recommended. Elevated results not associated with may be found in patients with other diseases such as tumors of the germ cells (testis, ovaries, etc.), bladder, pancreas, stomach, lungs, and liver. Interpretation and review of laboratory results Abnormal [facility] Phone: [facility] Phone: RPR QUANTon 04-12-2021 Rapid Plasma Reagin, Quant Non-Reactive Normal NonRea<1:1 [facility] Comment on above: Performed By: #### R PRQ #### [facility] [address] [place] [address] Carlos Hull HEP B SURFACE ANTIGEN SCREEN on 04-11-2021 HBsAg Screen Negative Normal Negative [facility] Comment on above: Performed By: #### R UBIGG #### [facility] [address] [place] [address] Carlos Hull HEPATITIS C VIRUS AB W/ REFL EX QUANTon 04-11-2021 HCV AB <0.1 Normal 0.0-0.9 [facility] Comment on above: Performed By: #### H CVPCRR #### [facility] [address] [place] [address] Carlos Hull Interpretation: Comment Normal [facility] Comment on above: Result Comment: Nega tive Not infected with HCV, unless recent infection is suspected or other evidence exists to indicate HCV infection. Performed By: #### H CVPCRR #### [facility] [address] [place] [address] Carlos Hull HIV 1 AND 2 WITH REFLEXon HIV Screen 4th Generation wRfx Non-Reactive Normal Non Reactive [facility] Comment on above: Performed By: #### R PRQ #### [facility] [address] [place] [address] Carlos Hull RUBELLA AB IGGon 04-11-2021 Rubella Antibodies, IgG 2.95 index Normal Immune >0.99 [facility] Comment on above: Result Comment: Non- immune <0.90 Equivocal 0.90 - 0.99 Immune >0.99 Performed By: #### R UBIGG #### [facility] [address] [place] [address] Carlos Hull CBC AUTO DIFFon 04-10-2021 BASO # 0.0 103/ul Normal 0.0-0.1 [facility] Comment on above: Performed By: #### R UBIGG #### [facility] [address] [place] [address] Carlos Hull Basophils/100 WBC (Bld) 0.3 % Normal 0.2-2.0 [facility] Comment on above: Performed By: #### R UBIGG #### [facility] [address] [place] [address] Carlos Hull EO # 0.0 103/ul Normal 0.0-0.7 [facility] Comment on above: Performed By: #### R UBIGG #### [facility] [address] [place], [place] [id number] Carlos Della Eosinophils/100 WBC (Bld) 0.5 % Critically low 0.9-7.0 [facility] Comment on above: Performed By: #### R UBIGG #### [facility] [address] [place] [address] Carlos Della Erythrocyte distribution width (RBC) [Ratio] 12.3 % Normal 11.0-15.0 [facility] Comment on above: Performed By: #### R UBIGG #### [facility] [address] [place] [address] Carlos Della Hematocrit (Bld) [Volume fraction] 39.2 % Normal 36.0-48.0 [facility] Comment on above: Performed By: #### R UBIGG #### [facility] [address] [place] [address] Carlos Della Hemoglobin (Bld) [Mass/Vol] 13.0 g/dL Normal 12.0-16.0 [facility] Comment on above: Performed By: #### R UBIGG #### [facility] [address] [place] [address] Carlos Della IG # 0.01 10e3/ul Normal 0.00-0.03 [facility] Comment on above: Performed By: #### R UBIGG #### [facility] [address] [place] [address] Carlos Della IG % 0.2 % Normal 0.0-0.5 [facility] Comment on above: Performed By: #### R UBIGG #### [facility] [address] [place] [address] Carlos Della LYMPH # 1.7 103/ul Normal 1.2-3.8 [facility] Comment on above: Performed By: #### R UBIGG #### [facility] [address] [place] [address] Calros Della Lymphocytes/100 WBC (Bld) 25.5 % Normal 20.5-60.0 [facility] Comment on above: Performed By: #### R UBIGG #### [facility] [address] [id number] Carlos Della MANUAL DIFF REQ NO Normal [facility] Comment on above: Performed By: #### R UBIGG #### [facility] [address] [id number] Carlosgaurang Hull MCH (RBC) [Entitic mass] 30.2 pg Normal 26.7-34.0 [facility] Comment on above: Performed By: #### R UBIGG #### [facility] [address] [place], [place] [id number] Carlosgaurang Hull MCHC (RBC) [Mass/Vol] 33.2 g/dL Normal 29.9-35.2 [facility] Comment on above: Performed By: #### R UBIGG #### [facility] [address] [place] [address] Carlos Della MCV (RBC) [Entitic vol] 91.2 fL Normal 81.0-99.0 [facility] Comment on above: Performed By: #### R UBIGG #### [facility] [address] [place], [place] [id number] Carlos Della MONO # 0.6 103/ul Normal 0.3-0.8 [facility] Comment on above: Performed By: #### R UBIGG #### [facility] [address] [place], [place] [id number] Carlos Della Monocytes/100 WBC (Bld) 8.7 % Normal 1.7-12.0 [facility] Comment on above: Performed By: #### R UBIGG #### [facility] [address] [place] [address] Carlos Della NEUT # 4.2 103/ul Normal 1.4-6.5 [facility] Comment on above: Performed By: #### R UBIGG #### [facility] [address] [place], [place] [id number] Carlos Della Neutrophils/100 WBC (Bld) 64.8 % Normal 43.0-75.0 [facility] Comment on above: Performed By: #### R UBIGG #### [facility] [address] [address] Carlosgaurang Wicken Platelet mean volume (Bld) [Entitic vol] 9.2 fL Critically low 9.5-13.5 [facility] Comment on above: Performed By: #### R UBIGG #### [facility] [address] [place], [place] [id number] Carlos Della PLT 246 103/ul Normal 150-450 [facility] Comment on above: Performed By: #### R UBIGG #### [facility] [address] [place] [address] Carlos Della RBC 4.30 106/ul Normal 4.20-5.40 [facility] Comment on above: Performed By: #### R UBIGG #### [facility] [address] [place] [address] Carlos Della WBC 6.5 103/ul Normal 4.0-11.0 [facility] Comment on above: Performed By: #### R UBIGG #### [facility] [address] [place] [address] Carlosgaurang Hull CULTURE URINEon 04-10-2021 CULTURE URINE Culture Observations: NO GROWTH Normal [facility] Comment on above: Performed By: #### R PRQ #### [facility] [address] [place] [address] Carlosgaurang Hull GLYCOHEMOGLOBIN A1Con 2020 ADA RECOMMENDATION ADA THERAPEUTIC TARGET 6.0 - 7.0 ACTION SUGGESTED > 7.0 Normal [facility] Comment on above: Performed By: #### R UBIGG #### [facility] [address] [place] [address] Carlos Della Glucose [Mass/Vol] 94 mg/dL Normal [facility] Comment on above: Performed By: #### R UBIGG #### [facility] [address] [place] [address] Carlos Della HbA1c (Bld) [Mass fraction] 4.9 % Normal <=6.0 [facility] Comment on above: Performed By: #### R UBIGG #### [facility] [address] [place] [address] Carlos Hull BENJAMIN BOX TEST PT SEND OUTo n 04-10-2021 SENT TO REF LAB 04/10/2021 Normal [facility] Comment on above: Performed By: #### R UBIGG #### [facility] [address] [address] Carlos Hull TYPE AND SCREENon 04-10-2021 TYPE AND SCREEN Negative Normal [facility] Comment on above: Performed By: #### T NS #### [facility] [address] [address] Carlos Hull US PREG TVon 04-02-2021 US [...] AYDE MIN Date: 2021-04-02 09:55 Normal [facility] PAP ACOG PANEL 2: 30 to 65on 12-31-2020 . . Normal [facility] Comment on above: Result Comment: Perf ormed at: WB Performed By: #### [id number] #### [facility] [address] [address] Carlos Hull Age Gdln ACOG Testing 30-65 Normal [facility] Comment on above: Performed By: #### [id number] #### [facility] [address] [address] Carlos Hull DIAGNOSIS: Comment Abnormal [facility] Comment on above: Result Comment: EPIT HELIAL CELL ABNORMALITY. LOW GRADE SQUAMOUS INTRAEPITHELIAL LESION (LSIL). PREDOMINANCE OF COCCOBACILLI CONSISTENT WITH SHIFT IN VAGINAL MARA IS PRESENT. Performed at: WB Performed By: #### [id number] #### [facility] [address] [place] [address] Carlos Hull Electronically signed by: Comment Normal [facility] Comment on above: Result Comment: Mavis Sharma MD, Pathologist Performed at: WB Performed By: #### [id number] #### [facility] [address] [place] [address] Carlos Hull HPV Aptima Positive Abnormal Negative [facility] Comment on above: Result Comment: This nucleic acid amplification test detects fourteen high-risk HPV types (16,18,31,33,35,39,45,51,52,56,58,59,66,68) without differentiation. Performed at: =G Performed By: #### [id number] #### [facility] [address] [place] [address] Carlos Hull Methodology: Comment Normal [facility] Comment on above: Result Comment: This liquid based ThinPrep(R) pap test was screened with the use of an image guided system. Performed at: WB Performed By: #### [id number] #### [facility] [address] [place] [address] Carlos Hull Note: Comment Normal [facility] Comment on above: Result Comment: The Pap smear is a screening test designed to aid in the detection of premalignant and malignant conditions of the uterine cervix. It is not a diagnostic procedure and should not be used as the sole means of detecting cervical cancer. Both false-positive and false-negative reports do occur. . Performed at: WB Performed By: #### [id number] #### [facility] [address] [place] [address] Carlos Hull Pathologist Provided ICD10 Comment Normal [facility] Comment on above: Result Comment: R87. 612, R87.5 Performed at: WB Performed By: #### [id number] #### [facility] [address] [place] [address] Carlos Hull Performed by: Comment Normal [facility] Comment on above: Result Comment: Roxana Conrad Landscape Laborer (ASCP) Performed at: WB Performed By: #### [id number] #### [facility] [address] [place], [place] [address] Carlos Hull Recommendation: Comment Abnormal [facility] Comment on above: Result Comment: Sugg est follow up as clinically appropriate. Performed at: WB Performed By: #### [id number] #### [facility] [address] [place], [place] [address] Carlos Hull Specimen adequacy: Comment Normal [facility] Comment on above: Result Comment: Sati sfactory for evaluation. Endocervical and/or squamous metaplastic cells (endocervical component) are present. Performed at: WB Performed By: #### [id number] #### [facility] [address] [id number] Carlos Hull Vital Signs Date Time Vital Sign Value Performing Clinician Facility 07-09-2025 13:34-0400 Body mass index (BMI) [Ratio] 28.32 kg/m2 [employer] Work Phone: [facility] 07-09-2025 13:34-0400 Body weight 82.01 kg [employer] Work Phone: [facility] 07-09-2025 13:34-0400 Diastolic blood pressure 70 mm[Hg] Meine [employer] Cecilia DO Work Phone: [facility] 07-09-2025 13:34-0400 Systolic blood pressure 116 mm[Hg] BitLito DO Work Phone: [facility] 10-19-2022 16:55-0500 Body temperature 98.06 [degF] Chucho Kwon [facility] 10-19-2022 16:55-0500 Diastolic blood pressure 102 mm[Hg] Chucho Kwon [facility] 10-19-2022 16:55-0500 Heart rate 91 /min Chucho Kwon [facility] 10-19-2022 16:55-0500 Respiratory rate 18 /min Chucho Kwon [facility] 10-19-2022 16:55-0500 SaO2% (BldA) [Mass fraction] 98 % Chucho Kwon [facility] 10-19-2022 16:55-0500 Systolic blood pressure 146 mm[Hg] Chucho Kwon [facility] 05-21-2021 00:06-0400 Body weight 75.[address] EL JAIME [facility] Comment on above: Performed By: #### AFPMAT #### [facility] [address] [place] [address] Carlos Della 04-30-2021 17:33-0400 Body height 170.2 cm Venecia Patterson MD Work Phone: [facility] Work Phone: 04-30-2021 17:33-0400 Body mass index (BMI) [Ratio] 25.98 kg/m2 Venecia Patterson MD Work Phone: [facility] Work Phone: 04-30-2021 17:33-0400 Body temperature 97.9 [degF] Venecia Patterson MD Work Phone: [facility] Work Phone: 04-30-2021 17:33-0400 Body weight 75.25 kg Venecia Patterson MD Work Phone: [facility] Work Phone: 04-30-2021 17:33-0400 Diastolic blood pressure 73 mm[Hg] Venecia Patterson MD Work Phone: [facility] Work Phone: 04-30-2021 17:33-0400 Heart rate 71 /min Venecia Patterson MD Work Phone: [facility] Work Phone: 04-30-2021 17:33-0400 Respiratory rate 18 /min Venecia Patterson MD Work Phone: [facility] Work Phone: 04-30-2021 17:33-0400 SaO2% (BldA) [Mass fraction] 100 % Venecia Patterson MD Work Phone: [facility] Work Phone: 04-30-2021 17:33-0400 Systolic blood pressure 127 mm[Hg] Venecia Patterson MD Work Phone: [facility] Work Phone: 04-08-2021 20:32-0400 Body temperature 98.2 [degF] Anthony Barba MD Work Phone: [facility] Work Phone: 04-08-2021 20:32-0400 Body weight 76.61 kg Anthony Barba MD Work Phone: [facility] Work Phone: 04-08-2021 20:32-0400 Diastolic blood pressure 76 mm[Hg] Anthony Barba MD Work Phone: [facility] Work Phone: 04-08-2021 20:32-0400 Heart rate 66 /min Anthony Barba MD Work Phone: [facility] Work Phone: 04-08-2021 20:32-0400 Respiratory rate 18 /min Anthony Barba MD Work Phone: [facility] Work Phone: 04-08-2021 20:32-0400 SaO2% (BldA) [Mass fraction] 98 % Anthony Barba MD Work Phone: [facility] Work Phone: 04-08-2021 20:32-0400 Systolic blood pressure 117 mm[Hg] Anthony Barba MD Work Phone: [facility] Work Phone: Encounters Encounter Date Encounter Type [...] re moval; Missed menses; Positive urine test ([facility]) Start: 07-09-2025 End: 07-09-2025 ambulatory SUDHIR CECILIA Not Available Start: 07-08-2025 End: 07-08-2025 Clinisync Result Encounter Sudhir Cecilia DO Work Phone: [facility] Unsolicited Start: 07-08-2025 End: 07-08-2025 Clinisync Result Encounter Sudhir Cecilia DO Work Phone: [facility] Unsolicited Start: 04-17-2025 End: 04-17-2025 ambulatory [facility] Facility:[facility] Start: 06-06-2024 End: 06-06-2024 ambulatory [facility] Facility:[facility] Start: 10-19-2022 End: 10-19-2022 Emergency department patient visit Chucho Kwon Facility:[facility] Start: 10-19-2022 End: 10-19-2022 Emergency department patient visit Chucho Kwon [facility] Start: 10-15-2021 End: 10-17-2021 Evaluation and [...] 04-30-2021 Emergency department patient visit VENECIA PATTERSON [facility] Start: 04-30-2021 End: 04-30-2021 Emergency department patient visit Venecia Patterson MD Work Phone: [facility] ED Comment on above: Vaginal bleeding in (Primary Dx) Start: 04-30-2021 End: 05-01-2021 ambulatory GLEN PACKER Facility:[facility] Start: 04-10-2021 End: 04-11-[address] EL JAIME Facility:[facility] Start: 04-08-2021 End: 04-08-2021 Emergency department patient visit [facility] Start: 04-08-2021 End: 04-08-2021 Emergency department patient visit Anthony Barba MD Work Phone: [facility] ED Comment on above: Dental infection [...] AM EDT Procedure Visit [facility] [address] [facility] [place] [phone] Sudhir Brooks, DO [address] [place] [address] KRISTAL FRAZIER Start: 08-05-2025 End: 08-05-2025 Patient encounter procedure 08/05/2025 1:30 PM EDT Procedure Visit [facility] [address] [facility] [place] [phone] Sudhir Brooks, DO [address] [place], [place] [id number] KRISTAL FRAZIER Start: 07-09-2025 End: 10-08-2025 US Pelvis transvaginal US OB transvaginal Imaging Routine Missed menses Positive urine test ([facility]) Expected: 07/09/2025, Expires: 10/08/[address] [facility] Work Phone: Comment on above: Expected: 07/09/2025 , Expires: 10/08/2025 Start: 07-09-2025 End: 07-09-2025 Patient encounter procedure 07/09/2025 1:10 PM EDT Procedure Visit [facility] Jeanna OBGYY[facility] [address] [place] [address] Sudhir Brooks DO [address] [place] [address] [facility] Start: 06-17-2025 Influenza vaccination Influenza Vacc ine (#1) [facility] Start: 06-17-2021 Influenza vaccination [facility] Phone: Start: 02-03-2018 Screening for malign ant neoplasm of cervix [facility] Start: 02-03-2009 Screening for malign ant neoplasm of cervix Pap Smear [facility] Start: 2000 COVID-19 Vaccine (1) COVID-19 Vaccin e (1) [facility] Phone: End: 04-30-2021 Culture, Urine Culture, Urine Microbiology Routine Once for 1 Occurrences starting 04/30/2021 until 04/30/2021 [facility] Phone: Comment on above: Once for 1 Occurrenc es starting 04/30/2021 until 04/30/2021 Culture, Urine Culture, Urine Microbiology Routine 04/30/2021 6:10 PM EDT [facility] Phone: Payers Date Payer Category Payer Blue [place] [employer] [id number] [id number] 2023 Unknown [id number] 1988 Unknown [id number] 2.16.84 [id number] 1988 Unknown [id number] 2.16.84 0.1.511296.3.579.2.174 1988 Unknown [id number] 2.16.84 0.1.702808.3.579.2.593 1988 Unknown [id number] 2.16.84 0.1.052860.3.579.2.593 1988 Unknown [id number] 2.16.84 0.1.284030.3.579.2.593 1988 Unknown [id number] 2.16.84 0.1.583783.3.579.2.593 1988 Unknown [id number] 2.16.84 0.1.476843.3.579.2.593 1988 Unknown [id number] 2.16.84 0.1.549473.3.579.2.593 1988 Unknown [id number] 2.16.84 0.1.900935.3.579.2.593 1988 Unknown [id number] 2.16.84 0.1.850932.3.579.2.593 1988 Unknown [id number] 2.16.84 0.1.349725.3.579.2.593 1988 Unknown [id number] 2.16.84 0.1.697545.3.579.2.593 1988 Unknown [id number] 2.16.84 0.1.452965.3.579.2.593 1988 Unknown [id number] 2.16.84 0.1.420732.3.579.2.593 1988 Unknown [id number] 2.16.8 40.1.797529.3.579.2.727 1988 Unknown [id number] 2.16.8 40.1.406462.3.579.2.1259 1959 Private Health Insurance [id number] 1959 Self-pay 1959 Unknown [id number] Unknown [id number] 2.16.84 0.1.866643.3.579.2.593 Social History Date Type Detail Facility Start: 04-08-2021 End: 04-30-2021 Tobacco smoking status NHIS Never smoker [facility] Phone: Start: 04-08-2021 End: 04-30-2021 Tobacco use and exposure Never used [facility] Start: 04-08-2021 End: 04-30-2021 Alcohol intake Lifetime non-drinker (finding) [facility] Phone: Start: 04-08-2021 History SDOH Alcohol Frequency 1 [facility] Work Phone: Start: 01-29-2021 [employer] Work Phone: Start: 1990 Sex Assigned At Not on file M [facility] Phone: Exposure to SARS-CoV -2 (event) Not sure [facility] Start: 06-13-2017 Tobacco smoking status Smokes tobacco daily (finding) [facility] Comment on above: 12 ppd Sex Assigned At Female [facility] Functional Status Date Assessment Result Facility 10-19-2022 Functional Status N/A [facility] History of Present illness Narrative 07-09-2025 Karina [...] US OB transvaginal 3. Positive urine test ([facility]) Z32.01 OB transvaginal IUD Removal Date/Time: 07/09/2025 [...] Sudhir Brooks DO documented in this encounter [facility] Discharge instructions 10-19-2022 Note Date & [...] Follow these instructions at home: Medicines Take lbmm-rzh-lkvftco and prescription medicines only as told by [...] and water are not available, use hand word processing operator. Avoid contact with people who have cold [...] 11/10/2005 Document Revised: 08/16/2019 Document Reviewed: 03/23/2017 [employer] Patient Education 2020 [employer] 10/19/2022 18:40:13 Upper Respiratory Infection, Adult, Pygy-qs-Huke Upper Respiratory Infection, Adult An upper respiratory [...] and other clear broths. General instructions Take hhpm-hkh-mjxlgxg and prescription medicines only as told by [...] not have soap and water, use hand word processing operator. Avoid touching your mouth, face, eyes, or [...] get better within 7 10 days. Take gswp-osh-xwxsdxe and prescription medicines only as told by your doctor. This information is not intended to replace advice given to you by your health care provider. Make sure you discuss any questions you have with your health care provider. Document Released: 03/21/2009 Document Revised: 10/11/2019 Document Reviewed: 05/26/2018 [employer] Patient Education [employer]. Follow Up Care 10/19/2022 16:53:44 With:Joaquim Link Address: [address] [place] [address]- Business (1) When:10/22/2022 18:20:33 Comments:Follow-up with your primary care provider in 3 to 5 days. If symptoms worsen, do not improve, or new symptoms arise please report back to emergency department for further evaluation. [facility] Evaluation + Plan note Note Date & Type Note Facility Evaluation + Plan note No data available for this section [facility] Evaluation note Note Date & Type Note Facility Evaluation note Diagnosis Dental infection- Primary Acute apical periodontitis of pulpal origin documented in this encounter [facility] Phone: Evaluation note Note Date & Type Note Facility Evaluation note Diagnosis Vaginal bleeding in - Primary Unspecified antepartum hemorrhage, unspecified as to episode of care documented in this encounter [facility] Phone: Evaluation note Note Date & Type Note Facility Evaluation note Diagnosis Encounter for IUD removal Missed menses Positive urine test ([facility]) documented in this encounter [facility] Discharge instructions Attachments Note Date & Type Note Facility Hospital Discharge instructions The following attachments cannot be sent through Care Everywhere.Tooth: Abscessed (Spanish)documented in this encounter [facility] Phone: Hospital Discharge instructions Attachments Note Date & Type Note Facility Hospital Discharge instructions The following attachments cannot be sent through Care Everywhere.: Vaginal Bleeding (Spanish)documented in this encounter [facility] Work Phone: Progress note Note Date & Type Note Facility Progress note No data available for this section [facility] Summary Purpose Family History No Family [...] pregn ant, pt of Dr. Jaime in [place]. Pt started bleeding this afternoon around 4pm. Pt called office and they told her to go to hospital. She came here because she lives in [place]. Pt also c/o abdominal cramping. Reason Comments [...] AUTHOR'S ORGANIZ ATION 10/23/[address] [facility] DATE CREATED AUTHOR AUTHOR'S ORGANIZ ATION 08/16/2023 [facility] DATE CREATED AUTHOR AUTHOR'S ORGANIZ ATION 04/19/2025 [facility] DATE CREATED AUTHOR AUTHOR'S MITCHELL COOMBS 07/10/2025 [facility] d[facility] Specialists EPIC Patient Care team informatio n (unrecognized section and content) Scanning Manager Relationship Specialty Start Date End Date Nakul EliasDO [address] [place] [address] PCP - General Family Medicine 02/22/23 Scanning Manager Relationship Specialty Start Date End Date MaryseNakul wilson DO [address] [place] [address] PCP - General Family Medicine 02/22/23 FOR [...] BE BASED ON THE PRIMARY CLINICAL RECORDS. [employer] provides no warranty or guarantee of the accuracy or completeness of information in this document.
--- OUTSIDE RECORDS SUMMARY | 2025-07-11 19:07 | XMS_ITS | Encounter Summary ---
Author Organization [facility] Address [address] [place] [address] Care Team Providers Care Fleet Administrator Name Role Phone Nakul Elias DO Primary Care Provider [phone] Encounter Details Date Type Department Care Team (Late Contact Info) Description 07/08/2025 Abstract [facility] FRAZIER [address] [place] [place] [phone] Sudhir Brooks DO [address] [id number] Social History Tobacco Use Types Packs/Day Years [...] 10:20 AM EDT Procedure Visit KRISTAL FRAZIER [address] [place], [place] [address] [phone] Sudhir Brooks DO [address] [place], [place] [phone] documented as of this encounter Visit Diagnoses Not on filedocumented in this encounter Care Teams Fleet Administrator Relationship Specialty Start Date End Date Nakul Elias DO [address] [place] [address] PCP - General Family Medicine 02/22/23 documented as of this encounter
--- OUTSIDE RECORDS SUMMARY | 2025-07-11 19:07 | XMS_ITS | Clinical Summary ---
Author Organization [facility] Address [address] [facility] [place] [address] Care Team Providers Care Retreader Name Role Phone Nakul Elias Primary Care Provider [phone] Allergies No known active allergies Medications VIT-FE [...] Visit [facility] [address] [place] [address] Luke Brooks DO Encounter for IUD removal; Missed menses; Positive urine test ([facility]) 07/09/2025 Clinisync Result Encounter NOMS External Department Unsolicited Luke Brooks, 07/08/2025 [place] [address] Luke Brooks, 07/08/2025 Clinisync Result Encounter NOMS External Department Unsolicited Luke Brooks, 07/08/2025 Telephone [facility] [address] [place] [address] Luke Brooks, 07/04/2025 Telephone [facility] [address] [place] [address] Vero Lowe MA from Last 3 [...] EDT Procedure Visit [facility] [address] [place] [address] Luke Brooks DO [address] [place] [address] Health Maintenance Due Date Last Done Comments [...] PM EDT Narrative 07/09/2025 3:30 PM EDT [place] [id number] Ultrasound Report Signed Patient: HARSH DENNISON MR#: [id number] : 1990 Acct:[id number] Age/Sex: 35 / F ADM Date: 07/09/25 Loc: US Attending Dr: Luke Brooks D.O. Ordering Physician: Luke Brooks D.O. Date of Service: 07/09/25 Procedure(s): US OB transvaginal Accession Number(s): [id number] cc: Luke Brooks D.O.; SARWAT MURRAY [address] [address] Patient Name: HARSH DENNISON MRN: [id number] date: 1990 Sex: F Assigned Patient Location: US Current Patient Location: US Accession/Order Number: [id number] Exam Date: 07/09/2025 14:32 Report Date: 07/09/2025 [...] Jr., D.O. 07/09/2025 3:10 PM Dictation Location: [place] [address] Electronically authenticated by: [id number] Y Date: 07/09/2025 15:10 Dictated By: Ricardo Umanzor M.D. Signed By: 07/09/25 1530 DD/ 1510 TD/TT: Mems Device Scientist: Procedure Note Radiology, Radiologist, MD - 07/09/2025 [place] [address] Ultrasound Report Signed Patient: HARSH DENNISON RMR#: [id number] : 1990Acct:[id number] Age/Sex: 35 / FADM Date: 07/09/25 Loc: US Attending Dr: Luke Brooks D.O. Ordering Physician: Luke Brooks D.O. Date of Service: 07/09/25 Procedure(s): US OB transvaginal Accession Number(s): [id number] cc: Luke Brooks D.O.; SARWAT MURRAY [place] [id number] Patient Name: HARSH DENNISON MRN: [id number] date: 1990 Sex: F Assigned Patient Location: Current Patient Location: US Accession/Order Number: [id number] Exam Date: 07/09/2025 14:32 Report Date: 07/09/2025 [...] Jr., D.O. 07/09/2025 3:10 PM Dictation Location: [place] [address] Electronically authenticated by: [id number] Y Date: :10 Dictated By: Ricardo Umanzor M.D. Signed By:07/09/25 1530 DD/ 1510 TD/TT: Mems Device Scientist: us Luek Brooks DO [facility] Final Result * [...] from Last 3 Months Insurance Care Teams Retreader Relationship Specialty Start Date End Date Nakul Elias DO [address] [place] [address] PCP - General Family Medicine 02/22/23
--- NOTE | 2025-07-11 20:23 | P.GYNCN_ITS ---
FIRE FIGHTERS DISPATCHER - CN: HPI Data of Consult Patient: known to practice within the last 3 years Consult date: 07/11/25 Requesting Physician: CESAR WRAY MD Primary Care Provider: SARWAT MURRAY Consult Narrative Reason for consult: early complication (vaginal bleeding) cc:: CC: CESAR WRAY MD Review of Systems ROS Status of ROS 10 or more systems reviewed and unremark able except as noted in history and below Gastrointestinal Reports: abdominal pain (cramping off and on for a week and worsened this AM) PFSH PFSH Medical History (Updated 07/11/25 @ 20:09 by CESAR WRAY MD) Vaginal delivery ?O80 - Encounter for full-term uncomplicated delivery (ICD-10) Surgical History (Updated 07/11/25 @ 20:57 by CESAR WRAY MD) History of back surgery ?Z98.890 - Other specified postprocedural states (ICD-10) Family History (Updated 07/11/25 @ 20:13 by CESAR WRAY MD) Grandmother Family history of cancer Family history of diabetes mellitus Grandmother Family history of hypertension Social History (Updated 07/11/25 @ 20:10 by CESAR WRAY MD) Smoking status: Current every day smoker Non-prescribed substance use: denies use Little interest or pleasure in doing things: not at all Feeling down, depressed, or hopeless: not at all Do you think of yourself as: straight/heterosexual Gender Identity: female Meds Home Medications and Allergies Home Medications ?Medication ?Instructions ?Recorded ?Confirmed ?Type No Known Home Medications 05/23/2406/18 History ibuprofen 600 mg tablet 600 mg PO Q8H PRN Pain Scale 1-3 07/11/25 Rx #30 tabs Allergies Allergy/AdvReac Type Severity Reaction Status Date / Time No Known Drug Allergies Allergy Verified 07/11/25 13:54 Exam Constitutional Vital Signs, click to edit/add: Last Vital Signs Temp 97.4 F L 07/11/25 19:50 Pulse 66 07/11/25 20:05 Resp 20 07/11/25 20:05 BP 125/89 07/11/25 20:05 Pulse Ox 100 07/11/25 20:05 O2 Del Method Room Air 07/11/25 20:05 Documenting provider has reviewed patient's vital signs: yes Common normals: average body habitus and oriented x3 General appearance: cooperative and well developed HENMT Common normals: normocephalic Eye Common normals: EOMs intact bilaterally Neck & C-Spine Common normals: full ROM and no lymphadenopathy Thyroid: thyroid normal Respiratory Common normals: normal respiratory effort and no retractions Cardio Common normals: regular rate and regular rhythm GI Inspection: normal to inspection Palpation: soft and tender (mild lower tenderness) Back & Pelvis Common normals: no CVA tenderness Extremity Common normals: no pedal edema Neuro Common normals: oriented x3 Psych Common normals: mental status grossly normal and thought process normal Attitude: calm Results Labs Labs: /Short CBC 07/11/25 Range/Units 14:20 WBC 9.0 (4.0-11.0) 10^3/uL Hgb 13.1 (12.0-16.0) g/dL Hct 38.2 (36.0-48.0) % Plt Count 241 (150-450) 10^3/uL BMP 07/11/25 14:20 Sodium 139 Potassium 3.5 Chloride 107 Carbon Dioxide 26.8 BUN 8.0 Creatinine 0.64 Glucose 92 Calcium 8.9 Quant hC07/04/25= 82 ; 07/06 = 92 ; 07/08 = 90 ; 07/11 = 93 Blood Type = O pos Imaging Procedure: US pelvis transvaginal Transvaginal pelvic ultrasound INDICATION: Rule out ectopic/miscarriage, vaginal bleeding, IUD removed 2 days : Radiologist's impression: FINDINGS: Uterus measures 9.2 x 5.3 x 4.9 cm.. Endometrial thickness 1.1 cm thickened. Right ovary 5.5 x 5.0 x 4.0 cm. Right ovarian cysts 4.4 x 3.8 x 3.6 cm. Left ovary 4.1 x 2.9 x 3.4 cm in size. Complex appearing cyst with both septations and soft tissue component noted measuring 2.8 x 2.6 x 1.6 cm in size US/US pelvis transvaginal IMPRESSION: No intrauterine identified. Thickened endometrium may raise possibility for decidual reaction. Bilateral ovarian cystic structures identified. No definite adnexal mass. Redemonstration of the mildly complex free fluid. Ectopic cannot be entirely excluded. Assessment and Plan Assessment and Plan (1) Miscarriage, threatened, early : Plan Proceed with a Suction D&C Consents have been obtained with the patient. Risks and benefits were ex tensively discussed and are not limited to bleeding, pain, numbness and tingling due to nerve injury, perforation of the uterus, damage to other organs, perforation of the uterus, need for future or further surgeries, anesthesia, . This is not a complete list of all the possible risks of the procedure and the patient wishes to proceed and consents were obtained prior to her surgery.
--- NOTE | 2025-07-11 21:10 | P.DS_ITS ---
DS: Providers Provider Primary care physician: SARWAT MURRAY Admitting clinician: CESAR WRAY Attending physician on admission: CESAR WRAY Attending physician on discharge: CESAR WRAY Discharging clinician: CESAR WRAY Anticipated date of discharge: 07/11/25 DS: Diagnosis Discharge Diagnosis (1) S/P D&C (status post dilation and curettage): Assessment and plan: patient had an incomplete miscarriage with a quant hCG that was minimally changed for the past week. She had increased bleeding and desired a D&C Plan repeat quant hCG next 07/17/25 or , 07/18/25. Follow up with Dr. Brooks in 2 weeks DS: Summary Status at Discharge Functional status at discharge: independent ambulation Overall status at discharge: patient is progressing back to baseline Time Spent with Patient Time attestation: Total time spent providing and/or coordinating discharge services: Time spent: less than 30 minutes Quality: Stroke Reason for No Antithrombin at DC: Treatment not indicated Contraindication Rehab Services Not Assessed: Treatment not indicated Exam Constitutional Vital Signs, click to edit/add: Last Vital Signs Temp 97.4 F L 07/11/25 19:50 Pulse 65 07/11/25 20:20 Resp 23 H 07/11/25 20:20 BP 121/87 07/11/25 20:20 Pulse Ox 100 07/11/25 20:20 O2 Del Method Room Air 07/11/25 20:20 Documenting provider has reviewed patient's vital signs: yes Common normals: no apparent distress Respiratory Common normals: normal respiratory effort Auscultation: clear to auscultation bilaterally Cardio Common normals: regular rate and regular rhythm GI Common normals: Normal to inspection, nondistended, normoactive bowel sounds present and soft to palpation Psych Common normals: mental status grossly normal, thought process normal and affect normal Appearance: grossly normal and well kempt Attitude: calm Judgement: judgment good Results Labs Labs: Short CBC 07/11/25 Range/Units 14:20 WBC 9.0 (4.0-11.0) 10^3/uL Hgb 13.1 (12.0-16.0) g/dL Hct 38.2 (36.0-48.0) % Plt Count 241 (150-450) 10^3/uL BMP 07/11/25 14:20 Sodium 139 Potassium 3.5 Chloride 107 Carbon Dioxide 26.8 BUN 8.0 Creatinine 0.64 Glucose 92 Calcium 8.9 Discharge Plan Discharge Disposition: Home, Self-Care Condition: Good Discharge Medications: New hydrocodone-acetaminophen 5-325 mg Tablet 1 tab PO Q4H PRN (Reason: Pain Scale 4-6) Qty: 10 0RF No Action No Known Home Medications Follow Up Appointments: in 2 weeks. Call to schedule. Dr. Brooks Referrals: SARWAT MURRAY [Primary Care Provider, Unknown] - 1 week Activity: increase activity as tolerated Activity Restrictions/Additional Instructions: SEDATION - For the next 24 hours: * Take it easy and rest today. You do not need to stay in bed, but avoid strenuous activities. * You may resume normal activities tomorrow. * DO NOT drive a car. * DO NOT leave your child unattended. * DO NOT make any important personal or business decisions or sign any legal documents. * DO NOT operate machinery such as power tools, lawn mowers, snow blowers, sewing machines, etc. * DO NOT stay alone. If you had a OCCUPATIONAL HEALTH PHYSICIAN Procedure: * No douches, vaginal creams, or tampons until released by your doctor. * No sexual activity until released by your doctor. * Call your surgeon if you are saturating more than 2-3 pads in an hour. Come to hospital either Tuesday or next week to have blood test. Bring order sheet with you to hospital Diet: advance to your usual diet Print Language: Liberian Patient Instructions: Dilation and Curettage (GEN)
--- NOTE | 2025-07-11 21:21 | PC.NURSE ---
Patient ambulated to bathroom and voided. No c/o pain. IV removed and d/c education given
--- NOTE | 2025-07-12 14:25 | W.PM.OPNOTE ---
Urinary Catheter Management Urinary Catheter Management Straight: Cath placed during this visit: no Urethral indwelling: No Surgery Operative Note Operative Note Procedure Date: 07/11/25 Time Out Performed: yes Pre-op Diagnosis: Spontaneous Incomplete Post-op Diagnosis: same as pre-op Procedures performed: Suction Dilatation and Curettage Anesthesia: LALA Primary Surgeon: CESAR WRAY Complications: none Estimated blood loss (mL): 100 Findings: uterus sounds to 8 cm Specimens: Products of Conception Drains: none Incision: none Indications for Procedures: vaginal bleeding in early with a quantitative hCG with minimal rise over the past week and no intrauterine seen. passing blood clots Detailed description of Procedure: The patient was taken to the operating room where general anesthesia was obtained without difficulty. A time out was obtained and agreed upon with all who were present. She was prepped and draped in a normal sterile fashion in dorsal lithotomy position and her bladder was drained. A weighted speculum was placed in the vagina. The top retractor was placed. A single tenaculum was placed on the anterior lip of the cervix. The uterus sounded to 8 cm. The cervix was already dilated to 8 mm when an 8 size Heagar dilator was used. She had a fair amount of bleeding still present. The 8 size curved curette was attached to the suction machine. The curved suction curette was used to make 3 passes. Sharp curettage was done until there was a sharp uterine cry present. Suction curette was done again with 2 more passes. There was minimal bleeding coming from inside the uterus. The tenaculum was removed from the cervix. Pressure was applied to the tenaculum sites. There was some bleeding from the tenaculum site on the left side. One stitch was applied and hemostasis was achieved. All instruments were removed from the vagina. Sponge, lap and needle counts were correct x 3. Patient tolerated the procedure well. She was taken out of lithotomy position. She was awakened and taken to the recovery room in a stable position. Other Provider present: No Post Operative care instructions: vaginal rest until after post-op visit Attending Doc Confirm Attending Attestation: Yes
== END 2025-07-11 21:24 | disposition home or self-care (01) ==
LOC: ER 18:29 → SURGOUT 19:05 → MS 20:38
PROVIDERS: Physician Assistant; Emergency Provider Emergency Medicine; Visit Provider Obstetrics & Gynecology
PROC: (CPT 1965; principal; 2025-07-11 19:00)
DX: O03.4 Incomplete spontaneous abortion without complication (principal); O99.331 Smoking (tobacco) complicating pregnancy, first trimester; F17.200 Nicotine dependence, unspecified, uncomplicated; Z3A.00 Weeks of gestation of pregnancy not specified
CPT/HCPCS: 59812; 36415; 76830; 80048; 84702; 85025; 86850; 86900; 86901; 93005; 99285; J0690; J1100; J2250; J2405; J2704; J3010

== ENCOUNTER 2025-07-17 06:40 | Outpatient (OUT) | payer BC, SELFPAY ==
--- OUTSIDE RECORDS SUMMARY | 2025-07-09 13:10 | XMS_ITS | Encounter Summary ---
Author Organization [facility] Address [address] [facility] [place] [address] Care Team Providers Care Material Assembler Name Role Phone Nakul Elias Primary Care Provider [phone] Reason for Visit * Reason Comments IUD removal Patient has had posi tive test with Mirena. Patient desires Mirena to be removed. Encounter Details Date Type Department Care Team (Late st Contact Info) Description 07/09/2025 1:10 PM EDT Procedure Visit KRISTAL FRAZIER [address] [place] [phone] Sudhir Brooks DO [address] [facility] [address] [place], [place] [id number] Encounter for IUD removal; Missed menses; Positive urine test ([facility]) Social History Tobacco Use Types Packs/Day Years Used Date Smoking Tobacco: Never Assessed Comments Yes Sex and Gender Information Value Date Recorded Sex Assigned at Not on file Legal Sex Female 7:15 PM EDT Gender Identity Not on file Sexual Orientation Not on file documented as of this encounter Last Filed Vital Signs Vital Sign Reading Time Taken Comments Blood Pressure 116/70 07/09/2025 1:34 PM EDT Pulse - - Temperature - - Respiratory Rate - - Oxygen Saturation - - Inhaled Oxygen Concentration - - Weight 82 kg (180 lb 12.8 oz) 07/09/2025 1:34 PM EDT Height - - Body Mass Index 28.32 05/16/2018 12:00 PM EDT documented in this encounter Progress Notes * Karina Burgess MA - 07/09/2025 1:10 PM EDTAssociated Order(s): IUD Removal Post-Procedure Diagnose(s): Encounter for IUD removal Reason for Appointment: Patient ID: Sofia Dennison is a 35 y.o. female who presents for IUD removal (Patient has had positive test with Mirena. Patient desires Mirena to be removed.) Patient presents today for a IUD Removal appointment. MEDICATIONS Current Outpatient Medications Medication Instructions acetaminophen (TYLENOL) 1,000 mg, Oral, Every 6 hours PRN VIT-FE FUMARATE-FA PO 1 tablet, Oral, Daily ALLERGIES No Known Allergies PROBLEMS Active Ambulatory Problems Diagnosis Date Noted Encounter for IUD removal 07/09/2025 Resolved Ambulatory Problems Diagnosis Date Noted No Resolved Ambulatory Problems No Additional Past Medical History HISTORY PAST MEDICAL HISTORY SOCIAL HISTORY No past medical history on file. Social History Tobacco Use Smoking status: Not on file Smokeless tobacco: Not on file Substance Use Topics Alcohol use: Not on file Drug use: Not on file FAMILY HISTORY No family history on file. SURGICAL HISTORY Past Surgical History: Procedure Laterality Date BACK SURGERY 2021 REVIEW OF SYSTEMS Review of Systems: Review of Systems OBJECTIVE Objective: OBGyn Exam Vitals: Estimated body mass index is 28.32 kg/m?? as calculated from the following: Height as of 18: 5' 7 . Weight as of this encounter: 180 lb 12.8 oz. BP: 116/70 No LMP recorded. Patient is . ASSESSMENT & PLAN Assessment/Plan Encounter Diagnosis: ICD-10-CM 1. Encounter for IUD removal Z30.432 2. Missed menses N92.6 US OB transvaginal 3. Positive urine test ([facility]) Z32.01 US OB transvaginal IUD Removal Date/Time: 07/09/2025 1:52 PM Performed by: Sudhir Brooks DO Authorized by: Sudhir Brooks DO Consent: Consent obtained: Written Consent given by: Patient Procedure risks and benefits discussed: yes Patient questions answered: yes Patient agrees, verbalizes understanding, and wants to proceed: yes Educational handouts given: no Procedure: Removed with no complications: yes Removal due to mechanical complications of IUD: no Removal due to infection and inflammatory reaction: no Other reason for removal: Positive hCG Results Comments: Pt had positive hCG results. Ultrasound ordered to further evaluate . Pt also wanting to schedule for bilateral salpingectomy. Documented by Karina Burgess MA on behalf of: Sudhir Brooks DO documented in this encounter Plan of Treatment Upcoming Encounters Date Type Department Care Team (Late st Contact Info) Description 08/13/2025 10:20 AM EDT Procedure Visit [facility] [address] [place] [place] [phone] Sudhir Brooks DO [address] [facility] [place] [address] Scheduled Orders Name Type Priority Associated Diagnoses Orde r Schedule US OB transvaginal Imaging Routine Missed menses Positive urine test ([facility]) Expected: 07/09/2025, Expires: 10/08/2025 documented as of this encounter Procedures Procedure Name Priority Date/Time Associated Diagnosis Comments IUD REMOVAL Routine 07/09/2025 1:52 PM EDT Encounter for IUD removal documented in this encounter Results * IUD REMOVAL (07/09/2025 1:52 PM EDT) Karina Bravo MA - 07/09/2025 1:52 PM EDT Karina Burgess MA 07/09/2025 2:05 PM IUD Removal Date/Time: 07/09/2025 1:52 PM Performed by: Sudhir Brooks DO Authorized by: Sudhir Brooks DO Consent: Consent obtained: Written Consent given by: Patient Procedure risks and benefits discussed: yes Patient questions answered: yes Patient agrees, verbalizes understanding, and wants to proceed: yes Educational handouts given: no Procedure: Removed with no complications: yes Removal due to mechanical complications of IUD: no Removal due to infection and inflammatory reaction: no Other reason for removal: Positive hCG Results Comments: Pt had positive hCG results. Ultrasound ordered to further evaluate . Pt also wanting to schedule for bilateral salpingectomy. us Sudhir Brooks DO IN CLINIC/BEDSIDE ORDERABLES Fin al Result documented in this encounter Visit Diagnoses Diagnosis Encounter for IUD removal Missed menses Positive urine test ([facility]) documented in this encounter Care Teams Material Assembler Relationship Specialty Start Date End Date Nakul Elias DO [address] [facility] [address] [place] [address] PCP - General Family Medicine 02/22/23 documented as of this encounter
--- OUTSIDE RECORDS SUMMARY | 2025-07-11 19:49 | XMS_ITS ---
Author Name Auto Generated Organization [facility] Care Team Providers Care Reinforcement Maker Name Role Phone LUKE BRANCH Attending Unavailable NON STAFF Attending Unavailable NON STAFF Admitting Unavailable Sharath CALIX Attending Unavailable PROBLEMS No Problem Records Found PROCEDURES No Procedure Records Found RESULTS No Result Records Found ALLERGIES DATE TYPE / CODE NAME / CODE REACTION SEVERITY SOURCE 04/24/2018 Drug Allergy/69514492 2(SNOMED CT) morphine/Y843713 545(RXNORM) Rash/itching Unknown [facility] ENCOUNTERS ADMIT/DISCHARGE ACCOUNT NUMBER ADMITTING ENCOUNTER CLASS LOCATION SOURCE 07/11/2025/07/11/20 [id number] [facility] ST[facility]/07/09/20 [id number] Ambulatory Building:[facility] 04/17/2025/04/17/20 [id number] Ambulatory [facility] PAYERS ENCOUNTER GUARANTOR PAYER SUBSCRIBER SOURCE 07/11/2025 [address] [place] [address]Haj: (HP) Primary Insurance:Self PayPolicy Number: Effective Date:2025-07-11 [facility] HARSH LOUB: [facility] [place] [address]Cvp: (HP) Primary Insurance:BCBSPoli cy Number: [id number] laura Date:2023-10-17 JORJE DENNISONDOB: [id number] [place] [address] [facility] EPIC
--- OUTSIDE RECORDS SUMMARY | 2025-07-17 06:43 | XMS_ITS | Clinical Summary ---
Author Organization [facility] Address [address] [facility] [address] Care Team Providers Care Senior Sales Executive Name Role Phone Nakul Elias Primary Care Provider [phone] Allergies No known active allergies Medications VIT-FE [...] Visit [facility] [address] [place] [address] Luke Brooks DO Encounter for IUD removal; Missed menses; Positive urine test ([facility]) 07/09/2025 Clinisync Result Encounter NOMS External Department Unsolicited Luke Brooks, 07/08/20[place] [address] Luke Brooks, 07/08/2025 Clinisync Result Encounter NOMS External Department Unsolicited Luke Brooks, 07/08/2025 Telephone [facility] [address] [place] [address] Luke Brooks, 07/04/2025 Telephone [facility] [address] [place] [address] Vero Lowe MA from Last 3 [...] EDT Procedure Visit [facility] [address] [place] [address] Luke Brooks DO [address] [address] Health Maintenance Due Date Last Done Comments [...] PM EDT Narrative 07/09/2025 3:30 PM EDT [place] [id number] Ultrasound Report Signed Patient: HARSH DENNISON MR#: [id number] : 1990 Acct:[id number] Age/Sex: 35 / F ADM Date: 07/09/25 Loc: US Attending Dr: Luke Brooks D.O. Ordering Physician: Luke Brooks D.O. Date of Service: 07/09/25 Procedure(s): US OB transvaginal Accession Number(s): [id number] cc: Luke Brooks D.O.; SARWAT MURRAY [address] [address] Patient Name: HARSH DENNISON MRN: [id number] date: 1990 Sex: F Assigned Patient Location: US Current Patient Location: US Accession/Order Number: [id number] Exam Date: 07/09/2025 14:32 Report Date: 07/09/2025 [...] Jr., D.O. 07/09/2025 3:10 PM Dictation Location: [place] [address] Electronically authenticated by: [id number] Y Date: 07/09/2025 15:10 Dictated By: Ricardo Umanzor M.D. Signed By: 07/09/25 1530 DD/ 1510 TD/TT: Bundle Tier: Procedure Note Radiology, Radiologist, MD - 07/09/2025 [place] [address] Ultrasound Report Signed Patient: HARSH DENNISON RMR#: [id number] : 1990Acct:[id number] Age/Sex: 35 / FADM Date: 07/09/25 Loc: US Attending Dr: Luke Brooks D.O. Ordering Physician: Luke Brooks D.O. Date of Service: 07/09/25 Procedure(s): US OB transvaginal Accession Number(s): [id number] cc: Luke Brooks D.O.; SARWAT MURRAY [place] [id number] Patient Name: HARSH DENNISON MRN: [id number] date: 1990 Sex: F Assigned Patient Location: Current Patient Location: US Accession/Order Number: [id number] Exam Date: 07/09/2025 14:32 Report Date: 07/09/2025 [...] Jr., D.O. 07/09/2025 3:10 PM Dictation Location: [place] [address] Electronically authenticated by: [id number] Y Date: :10 Dictated By: Ricardo Umanzor M.D. Signed By:07/09/25 1530 DD/ 1510 TD/TT: Bundle Tier: us Luke Brooks DO [facility] Final [...] from Last 3 Months Insurance Care Teams Senior Sales Executive Relationship Specialty Start Date End Date Nakul Elias DO [address] [place] [address] PCP - General Family Medicine 02/22/23
--- OUTSIDE RECORDS SUMMARY | 2025-07-17 06:43 | XMS_ITS | Encounter Summary ---
Author Organization [facility] Address [address] [facility] [facility] [place] [address] Care Team Providers Care Campground Manager Name Role Phone Nakul Elias DO Primary Care Provider Encounter Details Date Type Department Care Team (Late st Contact Info) Description 07/08/2025 Telephone [facility] [address] [place] [address] Sudhir Brooks DO [address] [place], [facility] Social History Tobacco Use Types Packs/Day [...] being ableto be transferred. Orders sent to [facility]. * Telephone Encounter - Chichi Bhatia LPN - 07/08/2025 9:55 AM EDT I was calling to find out the results of my blood work that I got done over the weekend at the hospital. I just calling to see what is going on. And when I can get my control out, you can call me back [phone]. Thank you. Patient call was returned and [...] Visit [facility] [address] [place] [address] Sudhir Brooks DO [address] [place] [address] Scheduled Orders Name Type Priority Associated Diagnoses Orde r Schedule hCG, quantitative, Lab Routine Positive urine test ([facility]) 6 Occurrences starting 07/08/2025 until 07/08/2026 documented as of this encounter Visit Diagnoses Diagnosis Positive urine test ([facility]) documented in this encounter Care Teams Campground Manager Relationship Specialty Start Date End Date Nakul Elias DO [address] [facility] [address] [place] [address] PCP - General Family Medicine 02/22/23 documented as of this encounter
--- OUTSIDE RECORDS SUMMARY | 2025-07-17 06:43 | XMS_ITS | Encounter Summary ---
Author Organization [facility] Address [address] [place] [address] Care Team Providers Care Senior Marketing Specialist Name Role Phone Nakul Elias DO Primary Care Provider [phone] Encounter Details Date Type Department Care Team (Late Contact Info) Description 07/08/2025 Abstract [facility] [address] [place] [phone] Sudhir Brooks DO [address] [place] [id number] Social History Tobacco Use Types Packs/Day Years [...] 10:20 AM EDT Procedure Visit [facility] [address] [place], [place] [address] [address] Sudhir Brooks DO [address] [place], [place] [address] documented as of this encounter Visit Diagnoses Not on filedocumented in this encounter Care Teams Senior Marketing Specialist Relationship Specialty Start Date End Date Nakul Elias DO [address] [place] [address] PCP - General Family Medicine 02/22/23 documented as of this encounter
--- OUTSIDE RECORDS SUMMARY | 2025-07-17 06:43 | XMS_ITS | Encounter Summary ---
Author Organization [facility] Address [address] [facility] [address] Care Team Providers Care Truck Driver Name Role Phone Nakul Elias DO Primary Care Provider [phone] Encounter Details Date Type Department Care Team (Late st Contact Info) Description 07/08/2025 Clinisync Result Encounter NOMS External Department Unsolicited Sudhir Brooks, [address] [place] [id number] Social History Tobacco Use Types Packs/Day Years [...] EDT Procedure Visit [facility] [address] [place] [address] Sudhir Brooks [address], [facility] documented as of this encounter Procedures Procedure [...] EDT Sudhir Cecilia DO [facility] Final [facility] documented in this encounter Visit Diagnoses Not on filedocumented in this encounter Care Teams Truck Driver Relationship Specialty Start Date End Date Nakul Elias DO [address] [place] [address] PCP - General Family Medicine 02/22/23 documented as of this encounter
--- OUTSIDE RECORDS SUMMARY | 2025-07-17 06:43 | XMS_ITS | Encounter Summary ---
Author Organization [facility] Address [address] [facility] [place] [address] Care Team Providers Care Spiral Spring Winder Name Role Phone Nakul Elias DO Primary Care Provider [phone] Encounter Details Date Type Department Care Team (Late st Contact Info) Description 07/09/2025 Clinisync Result Encounter NOMS External Department Unsolicited Luke Brooks DO [address] [place] [id number] Social History Tobacco Use Types Packs/Day Years [...] EDT Procedure Visit [facility] [address] [place] [phone] Luke Brooks DO [address] [place] [address] documented as of this encounter Procedures Procedure Name Priority Date/Time Associated Diagnosis Comments US OB TRANSVAGINAL 07/09/2025 3: 10 PM EDT documented in this encounter Results * US OB TRANSVAGINAL (07/09/2025 3:10 PM EDT) Anatomical Region Laterality Modality Other 07/09/2025 3:10 PM EDT Narrative 07/09/2025 3:30 PM EDT [address] [address] Ultrasound Report Signed Patient: HARSH DENNISON MR#: [id number] : 1990 Acct:[id number] Age/Sex: 35 / F ADM Date: 07/09/25 Loc: US Attending Dr: Luke Brooks D.O. Ordering Physician: Luke Brooks D.O. Date of Service: 07/09/25 Procedure(s): US OB transvaginal Accession Number(s): [id number] cc: Luke Brooks D.O.; SARWAT MURRAY [address] [address] Patient Name: HARSH DENNISON MRN: [id number] date: 1990 Sex: F Assigned Patient Location: US Current Patient Location: US Accession/Order Number: [id number] Exam Date: 07/09/2025 14:32 Report Date: 07/09/2025 [...] Jr., D.O. 07/09/2025 3:10 PM Dictation Location: [place] [address] Electronically authenticated by: [id number] Y Date: 07/09/2025 15:10 Dictated By: Ricardo Umanzor M.D. Signed By: 07/09/25 1530 DD/ 1510 TD/TT: [employer]: Procedure Note Radiology, Radiologist, - 07/09/2025 [place] [address] Ultrasound Report Signed Patient: HARSH DENNISON RMR#: [id number] : 1990Acct:[id number] Age/Sex: 35 / FADM Date: 07/09/25 Loc: US Attending Dr: Luke Brooks D.O. Ordering Physician: Luke Brooks D.O. Date of Service: 07/09/25 Procedure(s): US OB transvaginal Accession Number(s): [id number] cc: Luke Brooks D.O.; SARWAT MURRAY [place] [id number] Patient Name: HARSH DENNISON MRN: [id number] date: 1990 Sex: F Assigned Patient Location: US Current Patient Location: US Accession/Order Number: [id number] Exam Date: 07/09/2025 14:32 Report Date: 07/09/2025 [...] Jr., D.O. 07/09/2025 3:10 PM Dictation Location: [place] [address] Electronically authenticated by: [id number] Y Date: :10 Dictated By: Ricardo Umanzor M.D. Signed By:07/09/25 1530 DD/ 1510 TD/TT: [employer]: us Luke Cecilia DO [facility] Final Result documented in this encounter Visit Diagnoses Not on filedocumented in this encounter Care Teams Spiral Spring Winder Relationship Specialty Start Date End Date Nakul Elias DO [address] [place] [address] PCP - General Family Medicine 02/22/23 documented as of this encounter
--- OUTSIDE RECORDS SUMMARY | 2025-07-17 06:43 | XMS_ITS | Encounter Summary ---
Author Organization [facility] Address [address] [place] [address] Care Team Providers Care Electric Arc Furnace Operator Name Role Phone Nakul Elias DO Primary Care Provider [phone] Encounter Details Date Type Department Care Team (Late Contact Info) Description 07/04/2025 Telephone [facility] [address] [place] [phone] Vero Lowe MA [address] [place] [address] Social History Tobacco Use Types Packs/Day Years [...] EDT Procedure Visit [facility] [address] [facility] [place] [phone] Sudhir Brooks DO [address] [facility] [place] [address] documented as of this encounter Visit Diagnoses Not on filedocumented in this encounter Care Teams Electric Arc Furnace Operator Relationship Specialty Start Date End Date Nakul Elias DO [address] [facility] [address] [place] [address] PCP - General Family Medicine 02/22/23 documented as of this encounter
== END 2025-07-17 06:41 | disposition home or self-care (01) ==
PROVIDERS: Visit Provider Obstetrics & Gynecology
DX: Z32.00 Encounter for pregnancy test, result unknown (principal)
CPT/HCPCS: 36415; 84702

== ENCOUNTER 2025-08-05 07:40 | Outpatient (OUT) | payer BC, SELFPAY ==
--- OUTSIDE RECORDS SUMMARY | 2025-07-22 08:40 | XMS_ITS | Encounter Summary ---
Author Organization [facility] Address [address] [facility] [place] [address] Care Team Providers Care Cloth Calender Name Role Phone Nakul Elias DO Primary Care Provider Reason for Visit * Reason Comments Pre-op Visit Post op suction D&C Encounter Details Date Type Department Care Team (Late st Contact Info) Description 07/22/2025 8:40 AM EDT Office Visit [facility] [address] [facility] [place] [address] Manda Zhao, RECONNAISSANCE CREWMEMBER [address] [facility] [place] [address] Status post D&C; Positive urine test ([facility]) Social History Tobacco Use Types Packs/Day Years Used Date Smoking Tobacco: Never Tobacco Cessation:Counseling Given: Not Answered Alcohol Use Standard Drinks/Week Comments Not Currently 0 (1 standard drink = 0.6 oz pur e alcohol) Comments No Sex and Gender Information Value Date Recorded Sex Assigned at Not on file Legal Sex Female 7:15 PM EDT Gender Identity Not on file Sexual Orientation Not on file documented as of this encounter Last Filed Vital Signs Vital Sign Reading Time Taken Comments Blood Pressure 118/68 07/22/2025 8:44 AM EDT Pulse - - Temperature - - Respiratory Rate - - Oxygen Saturation - - Inhaled Oxygen Concentration - - Weight 81.1 kg (178 lb 12.8 oz) 07/22/2025 8:44 AM EDT Height 170.2 cm (5' 7 ) 07/22/2025 8:44 AM EDT Body Mass Index 28 07/22/2025 8:44 AM EDT documented in this encounter Progress Notes * Manda Cece, RECONNAISSANCE CREWMEMBER - 07/22/2025 8:40 AM EDT Reason for Appointment: Patient ID: Sofia Dennison is a 35 y.o. female who presents for Pre-op Visit (Post op suction D&C) Patient presents today for 1 Week Post Op Follow Up appointment. MEDICATIONS Current Outpatient Medications Medication Instructions [...] file. Social History Tobacco Use Smoking status: Never Smokeless tobacco: Not on file Substance Use Topics Alcohol use: Not Currently Drug use: Not Currently FAMILY HISTORY No family history on file. SURGICAL HISTORY Past Surgical History: Procedure Laterality Date BACK SURGERY 2021 D&C FIRST TRIMESTER / TX INCOMPLETE / MISSED / SEPTIC / INDUCED 07/12/2025 REVIEW OF SYSTEMS Review of Systems: Review of Systems Constitutional: Negative. HENT: Negative. Eyes: Negative. Respiratory: Negative. Cardiovascular: Negative. Gastrointestinal: Negative. Genitourinary: Negative. Musculoskeletal: Negative. Skin: Negative. Neurological: Negative. All other systems reviewed and are negative. Hematological: Negative. Endocrine: Negative. Allergic/Immunologic: Negative. OBJECTIVE Objective: Physical Exam Constitutional: Appearance: Normal appearance. She is well-developed. Cardiovascular: Rate and Rhythm: Normal rate and regular rhythm. Pulmonary: Effort: Pulmonary effort is normal. Breath sounds: Normal breath sounds. Abdominal: General: Bowel sounds are normal. There is no distension. Palpations: Abdomen is soft. Tenderness: There is no abdominal tenderness. There is no guarding or rebound. Musculoskeletal: General: No swelling. Normal range of motion. Right lower leg: No edema. Left lower leg: No edema. Neurological: Mental Status: She is alert and oriented to person, place, and time. Skin: General: Skin is warm and dry. Psychiatric: Mood and Affect: Mood normal. Behavior: Behavior normal. Vitals and nursing note reviewed. Exam conducted with a crane operator cab present. Vitals: Estimated body mass index is 28 kg/m?? as calculated from the following: Height as of this encounter: 5' 7 . Weight as of this encounter: 178 lb 12.8 oz. BP: 118/68 No LMP recorded. ASSESSMENT & PLAN ICD-10-CM 1. Status post D&C Z98.890 hCG, quantitative, 2. Positive urine test ([facility]) Z32.01 Patient s/p D and C on 07/11/25. She reports no complaints of pain or bleeding. She was given an order to follow up serial HCG levels to below five. She is scheduled for salpingectomy next month. Documented by Manda Zhao NP on behalf of: Manda Zhao NP documented in this encounter Plan of Treatment Upcoming Encounters Date Type Department Care Team (Late st Contact Info) Description 08/13/2025 10:20 AM EDT Procedure Visit [facility] Jeanna OBG[facility] [address] [place] [address] Sudhir Brooks DO [address] [place] [address] Scheduled Orders Name Type Priority Associated Diagnoses Orde r Schedule hCG, quantitative, Lab Routine Status post D&C 6 Occurrences starting 07/22/2025 until 07/22/2026 documented as of this encounter Visit Diagnoses Diagnosis Status post D&C Other postprocedural status Positive urine test ([facility]) documented in this encounter Care Teams Cloth Calender Relationship Specialty Start Date End Date Nakul Elias DO [address] [facility] [address] [place] [address] PCP - General Family Medicine 02/22/23 documented as of this encounter
--- OUTSIDE RECORDS SUMMARY | 2025-08-05 07:46 | XMS_ITS | Encounter Summary ---
Author Organization [facility] Address [address] [place] [address] Care Team Providers Care Double End Sewer Name Role Phone Nakul Elias DO Primary Care Provider [phone] Encounter Details Date Type Department Care Team (Late Contact Info) Description 07/22/2025 Bamboo flowsheet [facility] Jeanna [facility]RAZ[facility] [address] [place] [address] Manda Zhao, EMELIA [address] [facility] [place] [address] Social History Tobacco Use Types Packs/Day Years Used Date Smoking Tobacco: Never Alcohol Use Standard Drinks/Week Comments Not Currently [...] Encounters Date Type Department Care Team (Late Contact Info) Description 08/13/2025 10:20 AM EDT Procedure Visit [facility] Jeanna [facility] [address] [place] [address] Sudhir Brooks DO [address] [facility] [place] [address] documented as of this encounter Visit Diagnoses Not on filedocumented in this encounter Care Teams Double End Sewer Relationship Specialty Start Date End Date Nakul Elias DO [address] [place] [address] PCP - General Family Medicine 02/22/23 documented as of this encounter
--- OUTSIDE RECORDS SUMMARY | 2025-08-05 07:46 | XMS_ITS | Clinical Summary ---
Author Organization [facility] Address [address] [facility] [place] [address] Care Team Providers Care Cutter Plastics Rolls Name Role Phone Nakul Elias DO Primary Care Provider [phone] Allergies No known active allergies Medications VIT-FE FUMARATE-FA PO Take 1 tablet by mouth Daily Active acetaminophen (Tylenol) 500 MG tablet Take 1,000 mg by mouth every 6 (six) hours if needed Active Active Problems Problem Noted Date Diagnosed Date Encounter for IUD removal 07/09/2025 Encounters Date Type Department Care Team Description 07/22/2025 8:40 AM ED[place] [address] Manda Zhao, EMELIA Status post D&C; Positive urine test ([facility]) 07/22/2025 [place] [address] Manda Zhao, EMELIA 07/12/20[place] [phone] Luke Brooks DO 07/09/2025 1:10 PM EDT [place] [address] Luke Brooks DO Encounter for IUD removal; Missed menses; Positive urine test ([facility]) 07/09/2025 Clinisync Result Encounter NOMS External Department Unsolicited Luke Brooks DO 07/08/2025 Abstract [facility] [address] [facility] [place] [address] Luke Brooks, DO 07/08/2025 Clinisync Result Encounter NOMS External Department Unsolicited Cecilia Luke, DO 07/08/2025 Telephone [facility] Jeanna [facility] [address] [place] [address] Luke Brooks, DO 07/04/2025 Telephone [facility] [address] [place] [address] Vero Lowe MA from Last 3 [...] Mass Index 28 07/22/2025 8:44 AM EDT Plan of Treatment Upcoming Encounters Date Type Department Care Team (Late st Contact Info) Description 08/13/2025 10:20 AM EDT Procedure Visit [facility] Jeanna [facility] [address] [place] [address] Luke Brooks, DO [address] [facility] [address] [place], [place] [id number] Health Maintenance Due Date Last Done Comments [...] PM EDT Narrative 07/09/2025 3:30 [place] [address] Ultrasound Report Signed Patient: HARSH DENNISON MR#: [id number] : 1990 Acct:[id number] Age/Sex: 35 / F ADM Date: 07/09/25 Loc: US Attending Dr: Luke Brooks D.O. Ordering Physician: Luke Brooks D.O. Date of Service: 07/09/25 Procedure(s): US OB transvaginal Accession Number(s): [id number] cc: Luke Brooks D.O.; SARWAT MURRAY [place] [id number] Patient Name: HARSH DENNISON MRN: [facility]:[id number] date: 1990 Sex: F Assigned Patient Location: US Current Patient Location: US Accession/Order Number: [id number] Exam Date: 07/09/2025 14:32 Report Date: 07/09/2025 [...] Jr., D.O. 07/09/2025 3:10 PM Dictation Location: [place] [address] Electronically authenticated by: [id number] Y Date: 07/09/2025 15:10 Dictated By: Ricardo Umanzor M.D. Signed By: 07/09/25 1530 DD/ 1510 TD/TT: Charge Lpn: Procedure Note Radiology, Radiologist, MD - 07/09/2025 [place] [address] Ultrasound Report Signed Patient: HARSH DENNISON RMR#: [id number] : 1990Acct:[id number] Age/Sex: 35 / FADM Date: 07/09/25 Loc: US Attending Dr: Luke Brooks D.O. Ordering Physician: Luke Brooks D.O. Date of Service: 07/09/25 Procedure(s): US OB transvaginal Accession Number(s): [id number] cc: Luke Brooks D.O.; SARWAT MURRAY [address] [address] Patient Name: HARSH DENNISON MRN: [id number] date: 1990 Sex: F Assigned Patient Location: Current Patient Location: US Accession/Order Number: [id number] Exam Date: 07/09/2025 14:32 Report Date: 07/09/2025 [...] Jr., D.O. 07/09/2025 3:10 PM Dictation Location: [place] [address] Electronically authenticated by: [id number] Y Date: 5:10 Dictated By: Ricardo Umanzor M.D. Signed By:07/09/25 1530 DD/ 1510 TD/TT: Charge Lpn: us Luke Brooks DO [facility] Final Result * IUD REMOVAL (07/09/2025 1:52 PM EDT) Narrative Karina Burgess MA - 07/09/2025 1:52 PM EDT Karina Buregss MA 07/09/2025 2:05 PM IUD Removal Date/Time: [...] also wanting to schedule for bilateral salpingectomy. Luke Brooks DO IN CLINIC/BEDSIDE ORDERABLES Fin al [...] [facility] from Last 3 Months Insurance [employer] Care Teams Cutter Plastics Rolls Relationship Specialty Start Date End Date Nakul Elias DO [address] [place] [address] PCP - General Family Medicine 02/22/23
--- OUTSIDE RECORDS SUMMARY | 2025-08-05 07:46 | XMS_ITS | Encounter Summary ---
Author Organization [facility] Address [address] [place] [address] Care Team Providers Care Night Time Babysitter Name Role Phone Nakul Elias DO Primary Care Provider [phone] Encounter Details Date Type Department Care Team (Late Contact Info) Description 07/08/2025 Abstract N[facility]RAZIER [address] [place] [phone] Sudhir Brooks DO [address] [place] [id number] Social History Tobacco Use Types Packs/Day Years [...] 10:20 AM EDT Procedure Visit KRISTAL FRAZIER [address] [place], [place] [address] [phone] Sudhir Brooks DO [address] [place] [address] documented as of this encounter Visit Diagnoses Not on filedocumented in this encounter Care Teams Night Time Babysitter Relationship Specialty Start Date End Date Nakul Elias DO [address] [place] [address] PCP - General Family Medicine 02/22/23 documented as of this encounter
--- OUTSIDE RECORDS SUMMARY | 2025-08-05 07:46 | XMS_ITS | CCD ---
Author Organization [facility] Care Team Providers Care Art Education Professor Name Role Phone Yifan Umana Primary Care Provider VENECIA PATTERSON Attending Unavailable MURRAY, YIFAN A Primary Care Unavailable ANTHONY BARBA Attending Unavailable MURRAY, YIFAN A Primary Care Unavailable KARASIK, DR GALLEGOS Attending Unavailable KARASIK, DR GALLEGOS Admitting Unavailable [facility] Unavailable KARASIK, DR GALLEGOS [...] NOEL, DR GALLEGOS Procedure Practitioner Unava ilable KARLIBERTYK, DR GALLEGOS Admitting Unavailable YIFAN MURRAY Primary [...] Unavailable Nakul Elias DO Primary Care Provider NON STAFF Attending Provider Unavailable NON STAFF Attending Unavailable NON STAFF Admitting Unavailable SUDHIR BROOKS Attending Unavailable JIE ZHAO Attending Unavailable Allergies Allergy Classification Reported Allergen(s) Allergy Type Date of Onset Reaction(s) Facility (1 source) Morphine Drug Allergy 04-24-2018 [facility] Repository Medications Current Medications Medication Drug Class(es) Dates Sig (Normalized) Sig (Original) acetaminophen 500 mg oral tablet (6 sources) take 2 tablets by mouth every six hours as needed acetaminophen (Tylenol) 500 MG tablet Take 1,000 mg by mouth every 6 (six) hours if needed Active acetaminophen 325 mg / HYDROcodone bitartrate 5 mg oral tablet (1 source) Opioid Agonist Start: 06-17-2017 Flint 325 mg-5 mg oral tablet See Instructions, [...] day(s), # 6 tab(s), Refills(s) 0, Pharmacy: [facility], 170, cm, 10/19/22 16:59:00 EST, Height/Length Dosing, 66, kg, 10/19/22 16:59:00 EST, Weight Dosing Start Date: 10/19/22 Stop Date: 10/24/22 Status: Ordered cephalexin 500 mg oral capsule (1 source) Cephalosporin Antibacterial Start: 04-24-2018 take 1 capsule by mouth every eight hours cyclobenzaprine hydrochloride 10 mg oral tablet (1 source) Muscle Relaxant Start: 04-24-2018 take 1 tablet by mouth three times daily as needed for muscle spasms docusate sodium 100 mg oral capsule (1 source) Start: 06-17-2017 take 1 capsule by mouth twice daily as needed for constipation Colace 100 mg Cap 100 mg = 1 cap(s), Oral, BID, PRN for constipation, # 20 cap(s), Refills(s) 0 Start Date: 06/17/17 Status: Ordered gabapentin 300 mg oral capsule (1 source) Anti-epileptic Agent Start: 03-01-2018 take 1 capsule by mouth three times daily naproxen 500 mg delayed release oral tablet [...] for pain Start Date: 06/13/17 Status: Ordered oxyCODONE hydrochloride 5 mg oral tablet (1 source) Opioid Agonist Start: 04-24-2018 predniSONE 50 mg oral tablet (2 sources) Start: 10-19-2022 End: 10-24-2022 take 1 tablet by mouth once daily predniSONE 50 mg Tab 50 mg = 1 tab(s), Oral, Daily, X 5 day(s), # 5 tab(s), Refills(s) 0, Pharmacy: [facility], 170, cm, 10/19/22 16:59:00 EST, Height/Length Dosing, 66, kg, 10/19/22 16:59:00 EST, Weight Dosing Start Date: 10/19/22 Stop Date: 10/24/22 Status: Ordered Start: 04-24-2018 Vit-Fe Fumarate-FA ( PO) (1 source) take 1 tablet by hope th once daily Vit-Fe Fumarate-FA ( PO) Take 1 tablet by mouth daily 0 Active VIT-FE FUMARATE-FA PO (5 sources) take 1 tablet by hope th once daily VIT-FE FUMARATE-FA PO Take 1 [...] days 30 capsule 0 04/08/2021 04/18/2021 Active oxaprozin 600 mg oral tablet (1 source) Nonsteroidal Anti-inflammatory Drug Start: 07-29-2017 End: 03-01-2018 take 1 tablet by mouth twice daily Oxaprozin 600 mg Tablet Discontinued 600 MG PO Twice daily July 29, 2017 12:00am March 01, 2018 11:22am tiZANidine 4 mg oral tablet (1 source) Central alpha-2 Adrenergic Agonist Start: 07-29-2017 End: 03-01-2018 take 1 tablet by mouth once daily Tizanidine 4 mg tablet Discontinued 4 MG PO Daily July 29, 2017 12:00am March 01, 2018 11:22am Problems Active Problems Problem Classification Problem Date Documented Date Episodic/Chronic Chronic obstructive pulmonary disease and bronchiectasis (1 source) Bronchitis; Translations: [Bronchitis, not specified as acute or chronic] Onset: 10-19-2022 Episodic Contraceptive and procreative management (6 sources) Patient encounter status; Translations: [Encounter for [...] 10-07-2021 Episodic Other and delivery including normal (12 sources) Encounter for supervision of normal , [...] Test Name Value Interpretation Reference Range Facility Pathology Request for Lab Co rpon 07-11-2025 Pathology Request for Lab Day Normal [facility] Comment on above: Order Comment: JOSEFINAI ASHLEY DR: CESAR WRAY Result Comment: See report. Scanned copy available in EMR. PERFORMED BY: [place] [address] PATHOLOGIST ENVIRONMENTAL HEALTH INSPECTOR NICK HARRINGTON M.D. Performed By: #### P ATH TO [facility] #### [address] IUD Removalon 07-09-2025 Karina Burgess MA 07/09/2025 [...] also wanting to schedule for bilateral salpingectomy. [facility] OB TRANSVAGINALon [address] [place] [address] Ultrasound Report Signed Patient: SOFIA OLIVARES MR#: [id number] : 1990 Acct:[id number] Age/Sex: 35 / F ADM Date: 07/09/25 Loc: US Attending Dr: Sudhir Brooks D.O. Ordering Physician: Sudhir Brooks D.O. Date of Service: 07/09/25 Procedure(s): US OB transvaginal Accession Number(s): [id number] cc: Sudhir Brooks D.O.; YIFAN MURRAY [address] [address] Patient Name: SOIFA OLIVARES MRN: [facility]:[id number] date: 1990 Sex: F Assigned Patient Location: US Current Patient Location: US Accession/Order Number: [id number] Exam Date: 07/09/2025 14:32 Report Date: 07/09/2025 [...] Jr., D.O. 07/09/2025 3:10 PM Dictation Location: [place] [address] Electronically authenticated by: [id number] Y Date: 07/09/2025 15:10 Dictated By: Ricardo Umanzor M.D. Signed By: 07/09/25 1530 DD/ 1510 TD/TT: Production Team Leader: [facility] Radiology, Radiologist, - 07/09/2025 [place] [address] Ultrasound Report Signed Patient: SOFIA OLIVARES MR#: [id number] : 1990 Acct:[id number] Age/Sex: 35 / F ADM Date: 07/09/25 Loc: US Attending Dr: Sudhir Brooks D.O. Ordering Physician: Sudhir Brooks D.O. Date of Service: 07/09/25 Procedure(s): US OB transvaginal Accession Number(s): [id number] cc: Sudhir Brooks D.O.; YIFAN MURRAY [place] [address] Patient Name: SOFIA OLIVARES MRN: [facility]:[id number] date: 1990 Sex: F Assigned Patient Location: US Current Patient Location: US Accession/Order Number: [id number] Exam Date: 07/09/2025 14:32 Report Date: 07/09/2025 [...] Jr., D.O. 07/09/2025 3:10 PM Dictation Location: [facility] Electronically authenticated by: [id number] Y Date: 07/09/2025 15:10 Dictated By: Ricardo Umanzor M.D. Signed By: 07/09/25 1530 DD/ 1510 TD/TT: Production Team Leader: [facility] Radiology Study observation (narrative) [facility] US OB TRANSVAGINALOrdered By : Radiologist Radiology on 07-09-2025 [facility] Work Phone: [facility] PREG QUANT HCGon 025 HCG QUANTITATIVE 90 mIU/mL [facility] Comment on above: 5-50 0.2-1 WEEK 50-500 1-2 WEEKS 100-5,000 2-3 WEEKS 500-10,000 3-4 WEEKS 1,000-50,000 4-5 WEEKS 10,000-100,000 5-6 WEEKS 15,000-200,000 6-8 WEEKS 10,000-100,000 2-3 MONTHS [facility] ED Note-Physicianon 10-26-19 ED Note-Physician Basic Information Time Seen: Doyle BORJAChucho 10/19/2022 17:44 Chief Complaint cough x 1 [...] cough for her. Reports that he tried tztg-pcu-rzfkqic medications, with no relief of her symptoms. [...] and Complexity of Problems Differential Diagnosis: [] [facility] Data External documents reviewed: [] My EKG interpretation: [] My CT interpretation: [] My X-ray interpretation: Reviewed My Ultrasound interpretation: [] Decision rules/scores evaluated: [] Discussed with: [] Treatment and Disposition ED Course: 32-year-old female reports emergency department chief complaint of cough that is been going since a month ago. Reports that it is not getting better. Reports that she has tried jgaj-gzk-gesglyv medications without much relief of her symptoms. Reports that she is still coughing. Denies any recent antibiotic use. Reports that she has tried msks-zgk-pjrdjzr medication without relief. Denies any fevers or [...] antibiotics and medication as prescribed. Continue take wqoq-kcf-mgzudye medications. Discussed return precautions. Follow-up with your [...] day(s), # 6 tab(s), Refills(s) 0, Pharmacy: [facility], 756 (more content not included)... Normal [facility] Comment on above: Result Comment: Elec tronically Signed By: Boubacar SANDERS, Tony Coughlin\.br\Date and Time Signed: 10/19/22 21:25 EST\.br\Electronically Co-Signed By: Chucho Kwon DO\.indy\Date and Time Co-Signed: 10/26/22 07:09 EST Coding Summary.on 10-22-2022 Coding Summary. CD:[id number]:[id number] Gh0bWw+PGhlYWQ+PE1FV XInY88elVMhrT6GM5mBR J2XUFRDRRDTQE6LAF5as WY3PUoyY5NqrpFi HzbzqUEjLM76ZNe9MQS2 kDqqISsldK8uuKBlY8h5 IqMcYX75pC96GDbjUJCr JyE2ArDrcyrhdXHj O5suKcMxsDFxJpz+PHRh YmxlIHdpZHRoPScxMDAl FiMnlOzoPQ7hAe7sQTRa LWNvbGxhcHNlOiBj k8vaPKNfAAgrHS3heEna T7OegPD8EBXyj7f2Zp87 dHI+HVDyNDL4pZteEWlc e377GiJpf4ndWXR3 dGVoRBqcMDF5E28hl9Y5 HTLeDPSxZTD5eSZ0dC0g uWnujbxuE9IduBLxExO8 YSD5eNWuhQ5qsGfb nmnmrG3rIqp+L03YAM7P KFQRTD7CRxq7J8OiClfv dHI+IV56IXDpIZ81kFHg lRWoq2gkbDs2QmWv UGQsYJF9uHtrVLaov8Da XOIdO06gyGNyx3R6YCLo nHrioZKmDwOlvHG7nU2v ZInygcubo6wghlqn Obhuy4cjns45qY58T70t FXshELIjPGN1UIQxBVWj vGwisl4wkN9vTu0+IDxj c5yic4bysVx9InMm BGNciwTwlDapCOU9c8Al Np77U9JziPzay5SsBzy7 tb15qZPoe9J9fXS6JNlg XOPfpJ7zLLsmYoH5 WHPmOzOmlF12xKCrPBjx Gh1pxZthaTeqVW4uQCDn ejjrCUPwfR7hXSBjaYNv cTteVY1iSGJubzer z389QsGwTFN5UPUetKDx W9ZweM3lYsAyWMTvKJHf K3AyxWUyDHbjI360TSfm XrS8CUNhxsGkT7Ys HHLlrZyoMxR7r1A3Um4Z j9HggzvzBFC0ASaiGKKn SqB4SfSoMlI2K2IxOhg6 URZsdVjlTX9cM6Yi HMRjirruvbtpiTO2ROEp KTClgJ34ySMhPNwzRq5j n0I5x802OCDgTCBpxA87 Rc9qdEkpCIGhiXOL oG5wwilfo7sdeavmMmAu HEIrFXr4NZe3GKQckVqq NzDwTJL7EtN0NPB9nJCc rI6vsLxsvtbcmU6m Oyc+J30rzD8rUQB8ZRY2 tagsVPAyxgZqWO68VC27 I7NuBhaksPMruLU+PGRp bwVkgBsmTR8iVrMz y1boc7BiGLmcH0AwTZGl KKweDfd4DBPuWAZ6fHA6 nK0pHIJeGHpsw0D7rHV0 P9LhfdFumt8qw8tc JVDyPXhwF33zqTQka0J6 ZASnwWB8RMNweQlyHuCw xF62Zey+WSJjuQphq5Pm Gjmbi2ejn5nlwWi0 IjMwJSIgdmFsaWduPSJ0 i3PvPp91X82fXDheMNYn WFCkESEkYHKwjZelea7z lJ1nBw9+PGNvbCB3 mAI5vY2nAFKgGbL6KBkv R438BpJroIXhBpubn4xv l3sfuLr2PbInWEEepyJg hRwoHRW4u0YzTb70 V47dZSnpCIBbPWIgXHDr IHOitIazeu3qqU6aNw6+ OY5cl7cbih37oI58tKA+ ZHDgRPS9rHcuVGvl KGIhkZ9hSPwnFzV1ICVw LuBwoV87yWBeJFbrLc2c qFncyOajHM1xTMXigdfb g307FgRcr1iyHRXq aKYoNVkiGWM4B26bw0Z9 JQMcOBOoUFA7oPC4wE5k bGlnbjogbGVmdDsgdmVy vMpdOIqrCJyzJ418 IHRvcDsnPlBhdGllbnQg RrFdWTp9U0WuEit7YHZv cOleKE7ijLAoUJfhIh4p tYyjsNxqZW3wPKXu vmpfl229YxWxw5meWGDg cRWkPSduUWT0H30mf6Y9 GBJcPVMmQZR8jBQ7mT5u bGlnbjogbGVmdDsg gkAplRboTFqbNEwzM153 IHRvcDsnPkJpcnRoIERh zWT7TO61JU54vGArb0A1 jFY9U3IbJQInyvca ejsycOS2NVZqLADdsY31 Rw6ofAjhHi8vGVCbYMZ0 FYAeaSByA5RxdU0vQgRl MEGpXULdL3KxpTYt HTuyO894NYevFtB0QRHk dfOiV3NeYFDgrThiGeN2 s9Z2Tj3ME9J0TI95PE04 aFOtv4X3xVT2W5Lt UTWlrpnkksellTI8QJXk CKVesF58Wj2doNzpCb5f XKPyJDJ3XWIekTHjC5Zt dZ5wFlLuVXTgVSCs S0TthJWdHSaaI144NQdj LeT5YNKileBmE3SxTVCr yIgdKgN4o1Q4Ps6SFOo4 XO39JR11wQJfz1N2 pPL1F4IgAWAsimagbyge wXN1VLWnLBIkjU21Di2e qAzeQi7cBVZsHXB6FCEs wDLhB1IetT3dDsEc JZBsMAEvJ7EdxNKxMJfr H936YSivPwB7HIPzjyUh D8HrVQVunVnjLjS2r7Z8 Yb0OFDPbYI85TFL4 qLM5CU63YX34V2XjMczv dGFibGU+PHRhYmxlIHdp ZHRoPScxMDAlJyBzdHls YQ3rBj6tAVZtEAVe vHzzjACsYxWgo4zbLBXf QFbiAC8tdFvvW0JhmSW4 ELShi6h5Ci12L30lT7Hh dXA+JCTiqIA9bVD2 aU3zOmSkQrJ6ULasF180 YtTveCDfNmgmx5izl9ba sTe8RiQ0GRPguaPjcZlr STO5v3SyYp25E16v IHdpZHRoPSIxNSUiIHZh rEkymb1usK8vUd7+PGNv iPF6cDD2jG9xSsXgYoM9 CItdN207MiKvpZKi Ximiv5ypn4wpoSg2WfNn DPRxgbHwqYytOKM1t8Pk Jn38J4XbpVkee1RoXdj8 tf88fTWgw0Y6yOY9 G5DpKVRyzrgjoOJllYla DV2oXDIsxjfmZOOpiQ6k XIXjN3m0IqUsVfX3KLhi F6VgmzF4XEDwwEBp WZiyBDD4I76ue1G7DMEv RXUyCSJ5dDW4iV9ncEai bjogbGVmdDsgdmVydGlj NHasOEmkT453LPZz mXqxAUYaiW9tVMZmxSVv fRbdZG4yBUYcuvprUjrN UkQsIFNBTUFOVEhBIFI8 A3GrTfr6BQSfyMca VD4ktZSfXWntZd1hxLfh zZtkWG2rDZCtstvxCWOv oG6qMQNpaNYgrDjhYC4y AUUcgzuwy521IvMw UGM5ACBasFTvB3OdqI9l QoIcQSXyPMBtJ6IlbEKi UMubQ034GKqkLaF1BOWe xtKbS0DyVABnnQja OuK7s5U9Ap0oZN2aPT6m IBr0AH83IB14fVEcq1G7 qCD1K3OfHMOaikixgetr kLE0RCGqUWDjaC21 hGUdNZgiPg0xg8W1b238 GEUqJEOneY16Ox4niYxx MXPqpLUBxB4qotizr5fg cjogIzAwMDAwMDt0 BQi4ZQJwaUviJmPbGJA3 QoA4PGC7mRNvlF8crNqn vmlwzB4yTau+MzQgWWVh guA5K0IhWxi2ZISu sVkuDP4wnEAfRFvwWi8v zVrlxCdjCA8iWDGoabcz OLLwtT1lTAPnwALbqYzj QF3kFCGweurre692 VrWkHZD5DNThnOCdP3Op wA6yVjGuSIAzCVVbW6Rz wPMmHAkxX284HOcfNcD3 EVZkhrOvI8LbCQYb mAzsLoR7f0M8Eu2SQC3i gVP8L1AbYam0KOZxlWbx HD3qrDIzUErhJw1fqLaj jLhcVB8uXMKhbnys WOPmsJ7rULUhaHDqzMfq IO2fWVPiynkdn030IoMj IKV5RATxpYRmN9QixK5v BpZaHDTdDVUuK7Uj tGBhUEjtT262SIycSdM3 EIWawmFwL5JjRRHteRla ElN2w2H7Cj0KyYMgA2Ux K7c5I0VcBghyiTU+ CG01FSYbDA90zJJdfNTw i2zdwDx4HlPjSBDxJIY3 yFjoDVeub9DtXYSkE68k mAOjg9M5AEMicVdb pGJbEeKrzCG2oU7aLPie vvwdx3fokthrPjojs0ro ud17lA29O21rEVcyWYGo PSIzMCUiIHZhbGln si1eiN6aUk2+PGNvbCB3 pPB6xK4jBdCkSrK9XOwa R614OjNhtZMmWnjxq3zl p7vgeZx7IeFxQYXz ubHmtMzjAYP9v0PvOd73 V94eGFkmPQAqFCOyBUMd ZQZhcJqfws2efT4pRs8+ UR7ac3ybjc74hO29 dHI+SFMfCXQ7yZtyOPad HFTtrB3fEDlzRmG0EHVy SaXswV48pKKuFQqjHf8g mHkzrXtcFB1qZGSo gqkti345SjEkd1ivYVYf nVCrYHohMOU2P99oy8W4 VASgPXLwAES8zDI8zN4r bGlnbjogbGVmdDsg vqZefUrrVLjxCKzeI297 ETDjdDfnXkBxeTStB9bc fqPSIZ2fUgwjsJY+PHRk COQ6gLrfEEwiYBGu mF4nVQEmR9r1MeMfFhP0 BVgvP9JalxR8XBTcwZZg YOCgeXWGgY4rtvfnn1wk cjogIzAwMDAwMDt0 RId8HYNcvWmnRsIpTWT6 GtW2DBO9qSWwrU6wwAsr hhonfR6iCnm+RklOOjwv dGQ+SMWsZIN2qJim IJudXUUbfH3rIDGlK7a4 RpPdDbO3QQmsM9VmqgX0 ZLIplMPbMUDjpNGEnO8a hljbs6nicaxrCnHh TOAiYQv8VEb5SSKryVxv PrIaCUN3UlH7JXK1eWDy uV8ddVxachvojG5rLhn+ TVJOOjwvdGQ+PHRk LIO2eCchJJoqZUPedL6n VCQsG4u8KcTaVyY4FPmy H4SlpgR8QDTkpLWpOYTj wFEIaI6tvomjq0qh zchcYiFyKIDlPSr7NGw8 UDHxpZegAzRuUSX6XnG9 UWY3tEFmbR3vwYuknfzi oD7fFap+KYW0PYE0 FR17YI72Q6CgSejvbNUw bGU+PHRhYmxlIHdpZHRo QFpsJPTkWaKedDltDM9i Je2iPXOjTHLuqXni cHNl (more content not included)... Normal [facility] XR Chest 2 Viewson XR Chest [...] Ochoa M.D. Transcribed by: LACY Technologist: ZAK [facility] Consent for Treatmenton Consent for Treatment [id number] #1.00CD:127 [facility] Discharge Instructionson Discharge Instructions [id number] 2#1.00CD:127 [facility] ED Clinical Summaryon 2022 ED Clinical Summary [address] [address] ED Clinical Summary Person Information Name: SOFIA ARANGO/New_Leno Age: 32 Years : 1990 Sex: Female Language: Cameroonian PCP: Joaquim Osuna DO Marital Status: Single Phone: [phone] Visit Id: Visit Reason: Sinus Pain/Congestion; Cough; [...] 18:40:12 10/19/2022 18:40:12 [address] [facility] [id number] PHYS DOC NOTES: MEDICAL INFORMATION: Prescriptions Given: New Medications [facility], [address] [place], [place] [id number], [phone] azithromycin (azithromycin 250 mg Tab 5-day Dose Pack (Z-Abe)) 1 Packets By Mouth As Directed for 5 Days. as directed on package labeling. Refills: 0. predniSONE (predniSONE 50 mg Tab) 1 Tablets By Mouth every day for 5 Days. Refills: 0. Medications to Continue with No Changes Other Medications acetaminophen-hydroc odone (Flint 325 mg-5 mg oral tablet) 1-2 tab(s) [...] Acute Bronchitis, Adult; Upper Respiratory Infection, Adult, Bdxx-ay-Kfsf Follow up: With: Address: Edmundo: Joaquim Link [address] [place] [address] Business (1) In 3 days 10/22/2022 Comments: Follow-up with your primary care provider in 3 to 5 days. If symptoms worsen, do not improve, or new symptoms arise please report back to emergency department for further evaluation. DIAGNOSIS: Bronchitis Normal [facility] ED Patient Education Noteon 10-19-2022 ED [...] other clear broths. General instructions ? Take kgso-mpv-xgcuwoh and prescription medicines only as told by [...] not have soap and water, use hand comic book artist. ? Avoid touching your mouth, face, eyes, [...] get better within 7?10 days. ? Take lfia-svj-qtbzwkb and prescription medicines only as told by your doctor. This information is not intended to replace advice given to you by your health care provider. Make sure you discuss any questions you have with your health care provider. Document Released: 03/21/2009 Document Revised: 10/11/2019 Document Reviewed: 05/26/2018 [employer] Patient Education ? 2020 PO-MO. Pulmonary Medicine Acute Bronchitis, Adult Acute bronchitis [...] A fe (more content not included)... Normal [facility] ED Patient Summaryon 023 ED Patient Summary [address] [address] Patient Discharge Instructions Person Information Name: SOFIA ARANGO Age: 32 Years Arrival Date: 10/19/2022 16:52:07 Discharge Diagnosis: Bronchitis Primary Care Physician: Joaquim Osuna DO Provider Information Primary Provider: Chucho Kwon DO Advanced Subway Train Operator:None The exam and treatment you received in the Emergency Department were for an urgent problem and are not intended as complete care. It is important that you follow up with a doctor, nurse practitioner, or physician?s fundraising assistant for ongoing care. If your symptoms become worse or you do not improve as expected and you are unable to reach your usual health care provider, you should return to the Emergency Department. We are available 24 hours a day. SOFIA ARANGO has been given the following list of patient education materials, prescriptions and follow-up instructions: Follow-up Instructions: With: Address: When: Joaquim Painter [address] [place] [address] Business (1) In 3 days 10/22/2022 Comments: [...] Acute Bronchitis, Adult; Upper Respiratory Infection, Adult, Lexv-ug-Ecxu A MESSAGE TO ALL PATIENTS REGARDING OPIOIDS PRESCRIPTION OPIOIDS: WHAT YOU NEED TO KNOW Prescription opioids can be used to help relieve htsraoau-sx-boeetk pain and are often prescribed following a [...] the risk (more content not included)... Normal [facility] MICRO OTHER TESTSOrdered By: Tamar Banks on 10-19-2022 Rapid COV Int NEG Ctl Pass (10/19/22 5:12 PM) Normal [facility] Man Sero Rapid COV Int POS Ctl Pass (10/19/22 5:12 PM) Normal [facility] Man Sero SARS-CoV+SARS-CoV-2 (COVID-19) Ag IA.rapid Ql (Resp) Not Detected (10/19/22 5:12 PM) Normal Not Detected [facility] Man Sero Rapid COVID Antigen ([facility])on 10-19-2022 Rapid COV Int NEG Ctl Pass Normal [facility] Comment on above: Performed By: #### 2 [id number] #### [facility] [address] [place] [address] Rapid COV Int POS Ctl Pass Normal [facility] Comment on above: Performed By: #### 2 [id number] #### [facility] [address] [place] [address] SARS-CoV+SARS-CoV-2 (COVID-19) Ag IA.rapid Ql (Resp) Not detected Normal Not Detected [facility] Comment on above: Result Comment: The PhotoShelter Veritor? System for Rapid Detection of SARS-CoV-2 [...] other viruses or pathogens; and, in the [facility], this test is only authorized for the duration of the declaration that circumstances exist justifying the authorization of emergency use of in vitro diagnostics for detection and/or diagnosis of the virus that causes COVID-19 under Section 564(b)(1) of the Act, 21 U.S.C. ? 360bbb-3(b)(1), unless the authorization is terminated or revoked sooner. Performed By: #### 2 [id number] #### [facility] [address] [place] [address] ADMITTED TO INTENSIVE CARE UNIT FOR CONDITION OF INTEREST:FIND:PT: NO Normal [facility] Comment on above: Performed By: #### 2 [id number] #### [facility] [address] [place] [address] EMPLOYED IN A HEALTHCARE SETTING:FIND:PT: NO Normal [facility] Comment on above: Performed By: #### 2 [id number] #### [facility] [address] [place] [address] FIRST TEST FOR CONDITION OF INTEREST:FIND:PT: NO Normal [facility] Comment on above: Performed By: #### 2 [id number] #### [facility] [address] [place] [address] HAS SYMPTOMS RELATED TO CONDITION OF INTEREST:FIND:PT: YES Normal [facility] Comment on above: Performed By: #### 2 [id number] #### [facility] [address] [place] [address] HOSPITALIZED FOR CONDITION OF INTEREST:FIND:PT: NO Normal [facility] Comment on above: Performed By: #### 2 [id number] #### [facility] [address] [place] [address] STATUS:FIND:PT: NO Normal [facility] Comment on above: Performed By: #### 2 [id number] #### [facility] [address] [place] [address] RESIDES IN A [facility] CARE SETTING:FIND:PT: NO Normal [facility] Comment on above: Performed By: #### 2 [id number] #### [facility] [address] [id number] CBC AUTO DIFFon 10-17-2021 BASO # 0.0 103/ul Normal 0.0-0.1 [facility] Comment on above: Performed By: #### C BC #### [facility] [address] [address] [address] Marianne Mojica Basophils/100 WBC (Bld) 0.4 % Normal 0.2-2.0 [facility] Comment on above: Performed By: #### C BC #### [facility] [address] [address] [address] Marianne Mojica EO # 0.1 103/ul Normal 0.0-0.7 [facility] Comment on above: Performed By: #### C BC #### [facility] [address] [address] [address] Marianne Mojica Eosinophils/100 WBC (Bld) 1.1 % Normal 0.9-7.0 [facility] Comment on above: Performed By: #### C BC #### [facility] [address] [place] [address] Dr. Marianne Mojica Erythrocyte distribution width (RBC) [Ratio] 13.2 % Normal 11.0-15.0 [facility] Comment on above: Performed By: #### C BC #### [facility] [address] [place] [address] Dr. Marianne Mojica Hematocrit (Bld) [Volume fraction] 33.5 % Critically low 36.0-48.0 [facility] Comment on above: Performed By: #### C BC #### [facility] [address] [place] [address] Dr. Marianne Mojica Hemoglobin (Bld) [Mass/Vol] 11.1 g/dL Critically low 12.0-16.0 [facility] Comment on above: Performed By: #### C BC #### [facility] [address] [place] [address] Dr. Marianne Mojica IG # 0.05 10e3/ul Critically high 0.00-0.03 [facility] Comment on above: Performed By: #### C BC #### [facility] [address] [place] [address] Dr. Marianne Mojica IG % 0.5 % Normal 0.0-0.5 [facility] Comment on above: Performed By: #### C BC #### [facility] [address] [place] [address] Dr. Marianne Mojica LYMPH # 2.8 103/ul Normal 1.2-3.[address] [facility] Comment on above: Performed By: #### C BC #### [facility] [address] [place] [address] Dr. Marianne Mojica Lymphocytes/100 WBC (Bld) 29.9 % Normal 20.5-60.0 [facility] Comment on above: Performed By: #### C BC #### [facility] [address] [place] [address] Dr. Marianne Mojica MANUAL DIFF REQ NO Normal [facility] Comment on above: Performed By: #### C BC #### [facility] [address] [place] [address] Dr. Marianne Mojica MCH (RBC) [Entitic mass] 31.6 pg Normal 26.7-34.0 [facility] Comment on above: Performed By: #### C BC #### [facility] [address] [place] [address] Dr. Marianne Mojica MCHC (RBC) [Mass/Vol] 33.1 g/dL Normal 29.9-35.2 [facility] Comment on above: Performed By: #### C BC #### [facility] [address] [place] [address] Dr. Marinane Mojica MCV (RBC) [Entitic vol] 95.4 fL Normal 81.0-99.0 [facility] Comment on above: Performed By: #### C BC #### [facility] [address] [place] [address] Dr. Marianne Mojica MONO # 0.7 103/ul Normal 0.3-0.8 [facility] Comment on above: Performed By: #### C BC #### [facility] [address] [place] [address] Dr. Marianne Mojica Monocytes/100 WBC (Bld) 7.3 % Normal 1.7-12.0 [facility] Comment on above: Performed By: #### C BC #### [facility] [address] [place] [address] Dr. Marianne Mojica NEUT # 5.6 103/ul Normal 1.4-6.5 [facility] Comment on above: Performed By: #### C BC #### [facility] [address] [place] [address] Dr. Marianne Mojica Neutrophils/100 WBC (Bld) 60.8 % Normal 43.0-75.0 [facility] Comment on above: Performed By: #### C BC #### [facility] [address] [place] [address] Dr. Marianne Mojica Platelet mean volume (Bld) [Entitic vol] 9.8 fL Normal 9.5-13.5 [facility] Comment on above: Performed By: #### C BC #### [facility] [address] [place] [address] Dr. Marianne Mojica PLT 188 103/ul Normal 150-[address] [facility] Comment on above: Performed By: #### C BC #### [facility] [address] [place] [address] Dr. Marianne Mojica RBC 3.51 106/ul Critically low 4.20-5.40 [facility] Comment on above: Performed By: #### C BC #### [facility] [address] [place] [address] Dr. Marianne Mojica WBC 9.2 103/ul Normal 4.0-11.0 [facility] Comment on above: Performed By: #### C BC #### [facility] [address] [place] [address] Dr. Marianne Mojica CBC AUTO DIFFon 10-15-2021 BASO # 0.0 103/ul Normal 0.0-0.1 [facility] Comment on above: Performed By: #### C BC #### [facility] [address] [place] [address] Dr. Marianne Mojica Basophils/100 WBC (Bld) 0.2 % Normal 0.2-2.0 [facility] Comment on above: Performed By: #### C BC #### [facility] [address] [place] [address] Dr. Marianne Mojica EO # 0.1 103/ul Normal 0.0-0.7 [facility] Comment on above: Performed By: #### C BC #### [facility] [address] [place] [address] Dr. Marianne Mojica Eosinophils/100 WBC (Bld) 0.6 % Critically low 0.9-7.0 [facility] Comment on above: Performed By: #### C BC #### [facility] [address] [place] [address] Dr. Marianne Mojica Erythrocyte distribution width (RBC) [Ratio] 13.2 % Normal 11.0-15.0 [facility] Comment on above: Performed By: #### C BC #### [facility] [address] [place] [address] Dr. Marianne Mojica Hematocrit (Bld) [Volume fraction] 37.2 % Normal 36.0-48.0 [facility] Comment on above: Performed By: #### C BC #### [facility] [address] [place] [address] Dr. Marianne Mojica Hemoglobin (Bld) [Mass/Vol] 12.2 g/dL Normal 12.0-16.0 [facility] Comment on above: Performed By: #### C BC #### [facility] [address] [place] [address] Dr. Marianne Mojica IG # 0.04 10e3/ul Critically high 0.00-0.03 [facility] Comment on above: Performed By: #### C BC #### [facility] [address] [place] [address] Dr. Marianne Mojica IG % 0.4 % Normal 0.0-0.5 [facility] Comment on above: Performed By: #### C BC #### [facility] [address] [place] [address] Dr. Marianne Mojica LYMPH # 2.6 103/ul Normal 1.2-3.8 [facility] Comment on above: Performed By: #### C BC #### [facility] [address] [place] [address] Dr. Marianne Mojica Lymphocytes/100 WBC (Bld) 27.0 % Normal 20.5-60.0 [facility] Comment on above: Performed By: #### C BC #### [facility] [address] [place] [address] Dr. Marianne Mojica MANUAL DIFF REQ NO Normal [facility] Comment on above: Performed By: #### C BC #### [facility] [address] [place] [address] Dr. Marianne Mojica MCH (RBC) [Entitic mass] 31.1 pg Normal 26.7-34.0 [facility] Comment on above: Performed By: #### C BC #### [facility] [address] [place] [address] Dr. Marianne Mojica MCHC (RBC) [Mass/Vol] 32.8 g/dL Normal 29.9-35.2 [facility] Comment on above: Performed By: #### C BC #### [facility] [address] [place] [address] Dr. Marianne Mojica MCV (RBC) [Entitic vol] 94.9 fL Normal 81.0-99.0 [facility] Comment on above: Performed By: #### C BC #### [facility] [address] [place] [address] Dr. Marianne Mojica MONO # 0.8 103/ul Normal 0.3-0.8 [facility] Comment on above: Performed By: #### C BC #### [facility] [address] [place] [address] Dr. Marianne Mojica Monocytes/100 WBC (Bld) 7.8 % Normal 1.7-12.0 [facility] Comment on above: Performed By: #### C BC #### [facility] [address] [place] [address] Dr. Marianne Mojica NEUT # 6.2 103/ul Normal 1.4-6.5 [facility] Comment on above: Performed By: #### C BC #### [facility] [address] [place] [address] Dr. Marianne Mojica Neutrophils/100 WBC (Bld) 64.0 % Normal 43.0-75.0 [facility] Comment on above: Performed By: #### C BC #### [facility] [address] [place] [address] Dr. Marianne Mojica Platelet mean volume (Bld) [Entitic vol] 10.5 fL Normal 9.5-13.5 [facility] Comment on above: Performed By: #### C BC #### [facility] [address] [place] [address] Dr. Marianne Mojica PLT 210 103/ul Normal 150-450 [facility] Comment on above: Performed By: #### C BC #### [facility] [address] [place] [address] Dr. Marianne Mojica RBC 3.92 106/ul Critically low 4.20-5.40 [facility] Comment on above: Performed By: #### C BC #### [facility] [address] [address] [address] Marianne Mojica WBC 9.7 103/ul Normal 4.0-11.0 [facility] Comment on above: Performed By: #### C BC #### [facility] [address] [address] [address] Marianne Mojica Covid-19 PCR ([facility])on 09-18 SARS-CoV-2 (COVID-19) RNA VIRA+probe Ql (Unsp spec) Not detected Normal NOT DETECTED [facility] Comment on above: Result Comment: When [...] for this test is supported by the [place] of Health and Human Service's declaration that [...] used). Performed By: #### R PRQ #### [facility] [address] [place] [address] Carlos Hull DRUG SCREEN RAPID (URINE)on 10-15-2021 AMP Negative Normal NEGATIVE [facility] Comment on above: Performed By: #### R PRQ #### [facility] [address] [place] [address] Carlos Hull BAR Negative Normal NEGATIVE [facility] Comment on above: Performed By: #### R PRQ #### [facility] [address] [place] [address] Carlos Della BUP Negative Normal NEGATIVE [facility] Comment on above: Performed By: #### R PRQ #### [facility] [address] [place] [address] Carlos Della BZO Negative Normal NEGATIVE [facility] Comment on above: Performed By: #### R PRQ #### [facility] [address] [place] [address] Carlos Della BREE Negative Normal NEGATIVE [facility] Comment on above: Performed By: #### R PRQ #### [facility] [address] [place] [address] Carlos Della CUT-OFFS SEE BELOW Normal [facility] Comment on above: Result Comment: AMP [...] ng/mL Performed By: #### R PRQ #### [facility] [address] [place] [address] Carlos Della DRUG CUT HEADER DRUG CLASS TEST SYSTEM CUT-OFF CONCENTRATIONS ARE FOLLOWS: Normal [facility] Comment on above: Performed By: #### R PRQ #### [facility] [address] [place] [address] Carlos Della mAMP Negative Normal NEGATIVE [facility] Comment on above: Performed By: #### R PRQ #### [facility] [address] [place] [address] Carlos Della MTD Negative Normal NEGATIVE [facility] Comment on above: Performed By: #### R PRQ #### [facility] [address] [place] [address] Carlos Della OPI Negative Normal NEGATIVE [facility] Comment on above: Performed By: #### R PRQ #### [facility] [address] [address] Carlos Della OXY Negative Normal NEGATIVE [facility] Comment on above: Performed By: #### R PRQ #### [facility] [address] [address] Carlos Della PCP Negative Normal NEGATIVE [facility] Comment on above: Performed By: #### R PRQ #### [facility] [address] [address] Carlos Della PPX Negative Normal NEGATIVE [facility] Comment on above: Performed By: #### R PRQ #### [facility] [address] [address] Carlos Della TCA Negative Normal NEGATIVE [facility] Comment on above: Performed By: #### R PRQ #### [facility] [address] [place] [address] Carlos Della THC Negative Normal NEGATIVE [facility] Comment on above: Performed By: #### R PRQ #### [facility] [address] [address] Carlos Della TYPE AND SCREENon 10-15-2021 TYPE AND SCREEN Negative Normal [facility] Comment on above: Performed By: #### R PRQ #### [facility] [address] [place] [address] Carlso Della US PREG BIOPHY W NON STRESSo [...] AYDE MIN Date: 2021-10-07 13:52 Normal [address] [facility] CHLAMYDIA/GONOCOCCUS VIRA (SW AB/URINE/PAPon 12-21-2021 Chlamydia trachomatis, VIRA Negative Normal Negative [facility] Comment on above: Performed By: #### C T/NGNA #### [facility] [address] [address] [address] Marianne Mojica Neisseria gonorrhoeae, VIRA Negative Normal Negative [facility] Comment on above: Performed By: #### C T/NGNA #### [facility] [address] [address] [address] Marianne Mojica VAGINITIS/VAGINOSIS DNA PROB Travon 10-04-2021 Tory species Negative Normal Negative [facility] Comment on above: Performed By: #### R UBIGG #### [facility] [address] [address] Carlos Hull Gardnerella vaginalis Negative Normal Negative [facility] Comment on above: Performed By: #### R UBIGG #### [facility] [address] [address] Carlos Hull Trichomonas vaginalis Negative Normal Negative [facility] Comment on above: Performed By: #### R UBIGG #### [facility] [address] [address] Carlos Hull GROUP B STREP CULTUREon 09-16 S. agalactiae Ag Ql (Unsp spec) Culture Observations: NEGATIVE FOR GROUP B STREPTOCOCCUS. Normal [facility] Comment on above: Performed By: #### G BSCX #### [facility] [address] [address] [address] Marianne Mojica US PREG PLACENTAon US [...] AYDE MIN Date: 2021-07-29 12:05 Normal [address] [facility] GLUCOSE - 1HRon 07-11-2021 Glucose [Mass/Vol] 71 mg/dL Critically low 74-[address] [facility] Comment on above: Performed By: #### R UBIGG #### [facility] [address] [place], [place] [id number] Carlos Hull HEMOGRAM AND PLATELon 2020 Hematocrit (Bld) [Volume fraction] 36.2 % Normal 36.0-48.0 [facility] Comment on above: Performed By: #### R UBIGG #### [facility] [address] [place], [place] [id number] Carlos Della Hemoglobin (Bld) [Mass/Vol] 11.8 g/dL Critically low 12.0-16.0 [facility] Comment on above: Performed By: #### R UBIGG #### [facility] [address] [place], [place] [id number] Carlosgaurang Wicken MCH (RBC) [Entitic mass] 31.4 pg Normal 26.7-34.0 [facility] Comment on above: Performed By: #### R UBIGG #### [facility] [address] [place], [place] [address] Carlosgaurang Hull MCHC (RBC) [Mass/Vol] 32.6 g/dL Normal 29.9-35.2 [facility] Comment on above: Performed By: #### R UBIGG #### [facility] [address] [place], [place] [address] Carlosgaurang Wicken MCV (RBC) [Entitic vol] 96.3 fL Normal 81.0-99.0 [facility] Comment on above: Performed By: #### R UBIGG #### [facility] [address] [place], [place] [address] Carlos Della PLT 234 103/ul Normal 150-[address] [facility] Comment on above: Performed By: #### R UBIGG #### [facility] [address] [place], [place] [address] Carlos Della RBC 3.76 106/ul Critically low 4.20-5.40 [facility] Comment on above: Performed By: #### R UBIGG #### [facility] [address] [place] [address] Carlos Hull WBC 9.1 103/ul Normal 4.0-11.0 [facility] Comment on above: Performed By: #### R UBIGG #### [facility] [address], [place] [address] Carlos Hull US PREG ANATOMY SINGLEon US [...] 59th percentile by ultrasound and expected FL/AC: 0.778805 FL/BPD: 0.308918 HC/AC: 1.960575 GESTATIONAL AGE: Age by EDC: 20 weeks, 0 days NELA by EDC: 10/22/2021 Age by current US: 20 weeks, 0 days NELA by current US: 10/22/2021 IMPRESSION: 1. Single live intrauterine with growth detailed above. 2. Low-lying fundal/posterior placenta. Electronically authenticated by: AYDE MIN Date: 2021-06-04 12:07 [address] [facility] AFP MATERNAL FOR SPINA BIFID Aon 05-21-2021 AFP MoM 0.95 Normal [facility] Comment on above: Performed By: #### A FPMAT #### [facility] [address] [address] Carlos Hull AFP Value 37.7 ng/mL Normal [facility] Comment on above: Performed By: #### A FPMAT #### [facility] [address] [address] Carlos Hull AFP, Serum for Spina Bifida Report Normal [facility] Comment on above: Performed By: #### A FPMAT #### [facility] [address] [address] Carlos Hull Comment Comment Normal [facility] Comment on above: Result Comment: Shekhar Lincoln, Ph.D., [facility] Director . References: Available Upon Request. . Multiples Of Median Cutoffs For AFP Elevations Sommer 2.5 Black 2.8 IDD 2.0 Twins 4.5 Abbreviation Definitions IDD - Insulin Dep Diabetes OSBR - Open Spina Bifida Risk . For further inquiries contact [employer] at [phone]. Performed By: #### A FPMAT #### [facility] [address] [address] Carlos Hull Gest Age Collection Date 17.6 weeks Normal [facility] Comment on above: Performed By: #### A FPMAT #### [facility] [address] [address] Carlos Hull Gestat, Age Based on Ultrasound Normal [facility] Comment on above: Result Comment: 11:0 on 04/02/2021 Recalculations are not recommended when gestational dating by LMP and ultrasound are within 10 days. Performed By: #### A FPMAT #### [facility] [address] [place] [address] Carlos Hull Insulin Dep Diabetes No Normal [facility] Comment on above: Performed By: #### A FPMAT #### [facility] [address] [place] [address] Carlos Hull Interpretation Comment Normal [facility] Comment on above: Result [...] Customer Services to discuss available options. The [place] [employer] recommends amniocentesis be offered to women age 35 and older. Performed By: #### A FPMAT #### [facility] [address] [place] [address] Carlos Hull [age] Normal [facility] Comment on above: Performed By: #### A FPMAT #### [facility] [address] [place] [address] Carlosgaurang Hull Multiple Gestation No Normal [facility] Comment on above: Performed By: #### A FPMAT #### [facility] [address] [place] [address] Carlos Hull OSBR [place] [address] [place] [id number] [facility] Comment on above: Performed By: #### A FPMAT #### [facility] [address] [place] [address] Carlosgaurang Hull PDF . Normal [facility] Comment on above: Performed By: #### A FPMAT #### [facility] [address] [place] [address] Carlosgaurang Hull Race Normal [facility] Comment on above: Performed By: #### A FPMAT #### [facility] [address] [place] [address] Carlos Hull Test Results: Negative Normal [facility] Comment on above: Performed By: #### A FPMAT #### [facility] [address] [place] [address] Carlosgaurang Hull Cult,Urineon 05-01-2021 Cult,Urine Specimen Description .Random Urine Special Requests NOT REPORTED Culture NO GROWTH Report Status FINAL 05/01/2021 Normal [facility] Comment on above: Performed By: #### U RC #### [address] [address] Customer Operations Manager: Sekou Fraser MD [facility] [address] [place] [address] Customer Operations Manager: Campos Chandra MD US PREG PLACENTAon US [...] by: YURIY WISE Date: 2021-04-30 23:35 Normal [facility] ABO/RHOrdered By: Venecia marinelli on 04-30-2021 ABO/Rh Positive [facility] Work Phone: [facility] Work Phone: ABO/Rh(D)on 04-30-2021 ABO/Rh(D) Positive Normal [facility] Comment on above: Performed By: #### A [facility] #### [facility] [address] [place] [address] Customer Operations Manager: Campos Chandra MD CBC Auto DifferentialOrdered By: Venecia Patterson on 04-30-2021 [employer]os # 0.00 [facility] Work Phone: Absolute Immature Granulocyte NOT REPORTED [facility] Work Phone: [employer] Lymph # 2.70 [facility] Work Phone: [employer] [place] # 0.50 [facility] Work Phone: Basophils (Bld) [#/Vol] 0.00 10*3/uL [facility] Work Phone: Basophils/100 WBC (Bld) 0 % 0 - 2 % M [employer] Work Phone: Differential Type YES [employer] Work Phone: Eosinophils/100 WBC (Bld) 0 % 0 - 5 % [employer] Phone: Hematocrit (Bld) [Volume fraction] 36.7 % 36 - 46 % [email or web address] Work Phone: Hemoglobin.gastrointest inal spec 1 Ql (Stl) 12.5 g/dL 12.0 - 16.0 g/dL [employer] Phone: Immature Granulocytes NOT REPORTED 0 % M [employer] Work Phone: Lymphocytes/100 WBC (Bld) 30 % 15 - 40 % [employer] Phone: MCH (RBC) [Entitic mass] 30.6 pg 26 - 34 pg [email or web address] Work Phone: MCHC (RBC) [Mass/Vol] 34.2 g/dL 31 - 37 g/dL M [employer] Work Phone: MCV (RBC) [Entitic vol] 89.7 fL 80 - 100 fL [employer] Phone: Monocytes/100 WBC (Bld) 5 % 4 - 8 % M [employer] Phone: NRBC Automated NOT REPORTED per 100 WBC [employer] Work Phone: Platelet distribution width (Bld) [Ratio] 12.8 % 12.1 - 15.2 % [employer] Phone: Platelet Estimate NOT REPORTED [employer] Phone: Platelet mean volume (Bld) [Entitic vol] NOT REPORTED 6.0 - 12.0 fL [employer] Phone: Platelets (Bld) [#/Vol] 271 10*3/uL [email or web address] Work Phone: RBC (Bld) [#/Vol] 4.09 10*6/uL 4.0 - 5.2 m/uL [facility] Work Phone: RBC (Bld) [#/Vol] NOT REPORTED [facility] Work Phone: Segmented neutrophils/100 WBC (Bld) 65 % 47 - 75 % [facility] Work Phone: Segs [employer] 5.70 [facility] Work Phone: WBC (Bld) [#/Vol] 8.9 10*3/uL [facility] Work Phone: WBC (Bld) [#/Vol] NOT REPORTED [facility] Work Phone: [facility] Work Phone: CBC with Diffon 04-30-2021 Abs. Basophil 0.00 k/uL Normal 0.0-0.2 [facility] Comment on above: Performed By: #### M Bienvenido, CMPX, CDP #### [facility] [address] [place] [address] Customer Operations Manager: Campos Chandra MD Abs.Neutrophil (Seg) 5.70 k/uL Normal 2.5-7.0 [facility] Comment on above: Performed By: #### M Bienvenido, CMPX, CDP #### [facility] [address] [phone] Customer Operations Manager: Campos Chandra MD Auto Diff Performed YES Normal [facility] Comment on above: Performed By: #### M G, CMPX, CDP #### [facility] [address] [phone] Customer Operations Manager: Campos Chandra MD Basophils/100 WBC (Bld) 0 % Normal 0-2 [facility] Comment on above: Performed By: #### M G, CMPX, CDP #### [facility] [address] [place], [place] [phone] Customer Operations Manager: Campos Chandra MD Eosinophils (Bld) [#/Vol] 0.00 10*3/uL Normal 0.0-0.4 [facility] Comment on above: Performed By: #### M Bienvenido, CMPX, CDP #### [facility] [address] [place] [address] Customer Operations Manager: Campos Chandra MD Eosinophils/100 WBC (Bld) 0 % Normal 0-5 [facility] Comment on above: Performed By: #### M Bienvenido, CMPX, CDP #### [facility] [address] [place] [address] Customer Operations Manager: Campos Chandra MD Erythrocyte distribution width (RBC) [Ratio] 12.8 % Normal 12.1-15.2 [facility] Comment on above: Performed By: #### Jaime Faria CMPX, CDP #### [facility] [address] [phone] Customer Operations Manager: Campos Chandra MD Hematocrit (Bld) [Volume fraction] 36.7 % Normal 36-46 [facility] Comment on above: Performed By: #### Jaime Faria, CMPX, CDP #### [facility] [address] [phone] Customer Operations Manager: Campos Chandra MD Hemoglobin (Bld) [Mass/Vol] 12.5 g/dL Normal 12.0-16.0 [facility] Comment on above: Performed By: #### M Bienvenido, CMPX, CDP #### [facility] [address] [phone] Customer Operations Manager: Campos Chandra MD Lymphocytes (Bld) [#/Vol] 2.70 10*3/uL Normal 1.0-4.8 [facility] Comment on above: Performed By: #### M Bienvenido, CMPX, CDP #### [facility] [address] [place], [place] [phone] Customer Operations Manager: Campos Chandra MD Lymphocytes/100 WBC (Bld) 30 % Normal 15-40 [facility] Comment on above: Performed By: #### M Bienvenido, CMPX, CDP #### [facility] [address] [phone] Customer Operations Manager: Campos Chandra MD MCH (RBC) [Entitic mass] 30.6 pg Normal 26-34 [facility] Comment on above: Performed By: #### M G, CMPX, CDP #### [facility] [address] [place] [address] Customer Operations Manager: Campos Chandra MD MCHC (RBC) [Mass/Vol] 34.2 g/dL Normal 31-37 [facility] Comment on above: Performed By: #### Jaime Faria, CMPX, CDP #### [facility] [address] [place] [address] Customer Operations Manager: Campos Chandra MD MCV (RBC) [Entitic vol] 89.7 fL Normal 80-100 [facility] Comment on above: Performed By: #### Jaime Faria, CMPX, CDP #### [facility] [address] [place] [address] Customer Operations Manager: Campos Chandra MD Monocytes (Bld) [#/Vol] 0.50 10*3/uL Normal 0.0-1.0 [facility] Comment on above: Performed By: #### Jaime Faria, CMPX, CDP #### [facility] [address] [place], [place] [phone] Customer Operations Manager: Campos Chandra MD Monocytes/100 WBC (Bld) 5 % Normal 4-8 M [facility] Comment on above: Performed By: #### Jaime G, CMPX, CDP #### [facility] [address] [phone] Customer Operations Manager: Campos Chandra MD Neutrophil (Seg) 65 % Normal 47-75 [facility] Comment on above: Performed By: #### M Bienvenido, CMPX, CDP #### [facility] [address] [place], [place] [phone] Customer Operations Manager: Campos Chandra MD Platelets (Bld) [#/Vol] 271 10*3/uL Normal 140-450 [facility] Comment on above: Performed By: #### M Bienvenido, CMPX, CDP #### [facility] [address] [place] [address] Customer Operations Manager: Campos Chandra MD RBC (Bld) [#/Vol] 4.09 10*6/uL Normal 4.0-5.2 [facility] Comment on above: Performed By: #### Jaime Faria CMPX, CDP #### [facility] [address] [place], [place] [phone] Customer Operations Manager: Campos Chandra MD WBC (Bld) [#/Vol] 8.9 10*3/uL Normal 3.5-11.0 [facility] Comment on above: Performed By: #### Jaime Faria CMPX, CDP #### [facility] [address] [place], [place] [phone] Customer Operations Manager: Campos Chandra MD Abs.Imm.Granulocyte NOT REPORTED Normal 0.00-0.30 [facility] Comment on above: Performed By: #### M Bienvenido, CMPX, CDP #### [facility] [address] [place] [address] Customer Operations Manager: Campos Chandra MD Immature Granulocyte NOT REPORTED Normal 0 [facility] Comment on above: Performed By: #### M Bienvenido, CMPX, CDP #### [facility] [address] [place], [place] [phone] Customer Operations Manager: Campos Chandra MD MPV NOT REPORTED Normal 6.0-12.0 [facility] Comment on above: Performed By: #### M Bienvenido, CMPX, CDP #### [facility] [address] [place], [place] [phone] Customer Operations Manager: Campos Chandra MD NRBC Automated NOT REPORTED Normal [facility] Comment on above: Performed By: #### M Bienvenido, CMPX, CDP #### [facility] [address] [phone] Customer Operations Manager: Campos Chandra MD Platelet Estimate NOT REPORTED Normal [facility] Comment on above: Performed By: #### M Bienvenido, CMPX, CDP #### [facility] [address] [phone] Customer Operations Manager: Campos Chandra MD RBC morphology finding Nom (Bld) NOT REPORTED Normal [facility] Comment on above: Performed By: #### M Bienvenido CMPX, CDP #### [facility] [address] [phone] Customer Operations Manager: Campos Chandra MD WBC Morphology NOT REPORTED Normal [facility] Comment on above: Performed By: #### M Bienvenido, CMPX, CDP #### [facility] [address] [place], [place] [phone] Customer Operations Manager: Campos Chandra MD Comp Metabolic Pr/rfx MGon 0 - Potassium [Moles/Vol] 3.5 mmol/L Low 3.7-5.3 [facility] Comment on above: Performed By: #### M Bienvenido, CMPX, CDP #### [facility] [address] [place] [address] Customer Operations Manager: Campos Chandra MD (cont.) [facility] Comment on above: Result Comment: Aver age GFR for 30-39 years old: 107 mL/min/1.73sq m Chronic Kidney Disease: <60 mL/min/1.73sq m Kidney failure: <15 mL/min/1.73sq m eGFR calculated using average adult body mass. Additional eGFR calculator available at: http://www.[employer].com/multiple_crcl_2012.htm Performed By: #### TORRIE Mcdonald, CDP #### [facility] [address] [place] [address] Customer Operations Manager: Campos Chandra MD Albumin [Mass/Vol] 3.8 g/dL Normal 3.5-5.2 [facility] Comment on above: Performed By: #### TORRIE Mcdonald, CDP #### [facility] [address] [place] [address] Customer Operations Manager: Campos Chandra MD Alkaline Phos 56 U/L Normal 35-104 [facility] Comment on above: Performed By: #### TORRIE Mcdonald, CDP #### [facility] [address] [place] [address] Customer Operations Manager: Campos Chandra MD ALT [Catalytic activity/Vol] 13 U/L Normal 5-33 [facility] Comment on above: Performed By: #### TORRIE Mcdonald, CDP #### [facility] [address] [place] [address] Customer Operations Manager: Campos Chandra MD Anion gap [Moles/Vol] 10 mmol/L Normal 9-17 [facility] Comment on above: Performed By: #### TORRIE Mcdonald, CDP #### [facility] [address] [place] [address] Customer Operations Manager: Campos Chandra MD AST [Catalytic activity/Vol] 16 U/L Normal <32 [facility] Comment on above: Performed By: #### Jaime Faria CMPX, CDP #### [facility] [address] [place] [address] Customer Operations Manager: Campos Chandra MD Bilirubin [Mass/Vol] 0.23 mg/dL Low 0.30-1.20 [facility] Comment on above: Performed By: #### M G, CMPX, CDP #### [facility] [address] [place], [place] [phone] Customer Operations Manager: Campos Chandra MD BUN/CRE Ratio 18 Normal 9-20 [facility] Comment on above: Performed By: #### M G, CMPX, CDP #### [facility] [address] [place], [place] [phone] Customer Operations Manager: Campos Chandra MD Calcium [Mass/Vol] 9.2 mg/dL Normal 8.6-10.4 [facility] Comment on above: Performed By: #### M Bienvenido, CMPX, CDP #### [facility] [address] [place], [place] [phone] Customer Operations Manager: Campos Chandra MD Chloride [Moles/Vol] 105 mmol/L Normal 98-107 [facility] Comment on above: Performed By: #### M Bienvenido, CMPX, CDP #### [facility] [address] [place], [place] [phone] Customer Operations Manager: Campos Chandra MD CO2 [Moles/Vol] 23 mmol/L Normal 20-31 [facility] Comment on above: Performed By: #### Jaime Faria, CMPX, CDP #### [facility] [address] [place], [place] [phone] Customer Operations Manager: Campos Chandra MD Creatinine [Mass/Vol] 0.44 mg/dL Low 0.50-0.90 [facility] Comment on above: Performed By: #### M Bienvenido, CMPX, CDP #### [facility] [address] [place], [place] [phone] Customer Operations Manager: Campos Chandra MD GFR, Amer >60 Normal >60 [facility] Comment on above: Performed By: #### M G, CMPX, CDP #### [facility] [address] [place] [address] Customer Operations Manager: Campos Chandra MD GFR,non Amer >60 Normal >60 [facility] Comment on above: Performed By: #### Jaime Faria CMPX, CDP #### [facility] [address] [place] [address] Customer Operations Manager: Campos Chandra MD Glucose [Mass/Vol] 90 mg/dL Normal 70-99 [facility] Comment on above: Performed By: #### Jaime Faria CMPX, CDP #### [facility] [address] [place] [address] Customer Operations Manager: Campos Chandra MD Protein [Mass/Vol] 7.0 g/dL Normal 6.4-8.3 [facility] Comment on above: Performed By: #### Jaime Faria CMPX, CDP #### [facility] [address] [place] [address] Customer Operations Manager: Campos Chandra MD Sodium [Moles/Vol] 138 mmol/L Normal 135-144 [facility] Comment on above: Performed By: #### Jaime Faria CMPX, CDP #### [facility] [address] [place] [address] Customer Operations Manager: Campos Chandra MD Urea nitrogen [Mass/Vol] 8 mg/dL Normal 6-20 [facility] Comment on above: Performed By: #### Jaime Faria CMPX, CDP #### [facility] [address] [place] [address] Customer Operations Manager: Campos Chandra MD Albumin/Glob Ratio NOT REPORTED Normal 1.0-2.5 [facility] Comment on above: Performed By: #### Jaime Faria CMPX, CDP #### [facility] [address] [place] [address] Customer Operations Manager: Campos Chandra MD Staging: NOT REPORTED Normal [facility] Comment on above: Performed By: #### M G, CMPX, CDP #### [facility] [address] [place] [address] Customer Operations Manager: Campos Chandra MD Comprehensive Metabolic Pane l w/ Reflex to MGOrdered By: Venecia Patterson on 04-30-2021 Albumin [Mass/Vol] 3.8 g/dL 3.5 - 5.2 g/dL [employer] Phone: Albumin/Globulin Ratio NOT REPORTED [employer] Phone: ALP (Bld) [Catalytic activity/Vol] 56 U/L 35 - 104 U/L [employer] Phone: ALT [Catalytic activity/Vol] 13 U/L 5 - 33 U/L [employer] Phone: Anion gap [Moles/Vol] 10 mmol/L 9 - 17 mmol/L [employer] Phone: AST [Catalytic activity/Vol] 16 U/L <32 [employer] Phone: Bilirubin [Mass/Vol] 0.23 mg/dL Low 0.30 - 1.20 mg/dL [employer] Phone: Calcium [Mass/Vol] 9.2 mg/dL 8.6 - 10. 4 mg/dL [employer] Phone: Chloride [Moles/Vol] 105 mmol/L 98 - 10 7 mmol/L [employer] Phone: CO2 [Moles/Vol] 23 mmol/L 20 - 31 mmol/L [employer] Phone: Creatinine [Mass/Vol] 0.44 mg/dL Low 0.50 - 0.90 mg/dL [employer] Phone: Free PSA/Total PSA [Mass fraction] 7.0 g/dL 6.4 - 8.3 g/dL [employer] Phone: GFR >60 >60 mL/min [employer] Phone: GFR Non- >60 >60 mL/min [facility]: GFR/1.73 sq M.predicted MDRD (S/P/Bld) [Vol rate/Area] [facility]: Comment on above: Average GFR for 30-3 9 years old: 107 mL/min/1.73sq m Chronic Kidney Disease: <60 mL/min/1.73sq m Kidney failure: <15 mL/min/1.73sq m eGFR calculated using average adult body mass. Additional eGFR calculator available at: http://www.[employer]_crcl_2012.htm GFR/1.73 sq M.predicted MDRD (S/P/Bld) [Vol rate/Area] NOT REPORTED [facility]: Glucose [Mass/Vol] 90 mg/dL 70 - 99 mg/dL [facility] [employer] Phone: Interpretation and review of laboratory results Abnormal [facility]: Potassium [Moles/Vol] 3.5 mmol/L Low 3.7 - 5.3 mmol/L [facility]: Sodium [Moles/Vol] 138 mmol/L 135 - 144 mmol/L [facility]: Urea nitrogen (BldV) [Mass/Vol] 8 mg/dL 6 - 20 mg/dL [facility]: Urea nitrogen/Creatinine (Bld) [Mass ratio] 18 [facility]: [facility]: Drug Scr, Abuse, Uron 2020 Amphetamine(s),Ur Negative Normal NEG [facility] Comment on above: Result Comment: (Positive cutoff 500 ng/mL) Performed By: #### U MICAO, UA, DIOGENES #### [facility] [address] [place], [place] [phone] Customer Operations Manager: Campos Chandra MD Barbiturate(s),Ur Negative Normal NEG [facility] Comment on above: Result Comment: (Positive cutoff 200 ng/mL) Performed By: #### U MICAO, UA, DIOGENES #### [facility] [address] [place], [place] [phone] Customer Operations Manager: Campos Chandra MD Benzodiazepine(s) Negative Normal NEG [facility] Comment on above: Result Comment: (Positive cutoff 150 ng/mL) Performed By: #### U MICAO, UA, DIOGENES #### [facility] [address] [place], [place] [phone] Customer Operations Manager: Campos Chandra MD Cannabinoid(s),Ur Negative Normal NEG [facility] Comment on above: Result Comment: (Positive cutoff 50 ng/mL) Performed By: #### U MICAO, UA, DIOGENES #### [facility] [address] [place], [place] [phone] Customer Operations Manager: Campos Chandra MD Cocaine Metabolite Negative Normal NEG [facility] Comment on above: Result Comment: (Positive cutoff 150 ng/mL) Performed By: #### U MICAO, UA, DIOGENES #### [facility] [address] [place], [place] [phone] Customer Operations Manager: Campos Chandra MD Methadone Ql (U) Negative Normal NEG [facility] Comment on above: Result Comment: (Positive cutoff 200 ng/mL) Performed By: #### U MICAO, UA, DIOGENES #### [facility] [address] [place], [place] [phone] Customer Operations Manager: Campos Chandra MD Methamphetamine, Ur Negative Normal NEG [facility] Comment on above: Result Comment: (Positive cutoff 500 ng/mL) Performed By: #### U MICAO, UA, DIOGENES #### [facility] [address] [place], [place] [phone] Customer Operations Manager: Campos Chandra MD Opiate(s), Ur Negative Normal NEG [facility] Comment on above: Result Comment: (Positive cutoff 100 ng/mL) Performed By: #### U MICAO, UA, DIOGENES #### [facility] [address] [place], [place] [phone] Customer Operations Manager: Campos Chandra MD Oxycodone, Urine Negative Normal NEG [facility] Comment on above: Result Comment: (Positive cutoff 100 ng/mL) Performed By: #### U MICAO, UA, DIOGENES #### [facility] [address] [place] [address] Customer Operations Manager: Campos Chandra MD Phencyclidine, Ur Negative Normal NEG [facility] Comment on above: Result Comment: (Positive cutoff 25 ng/mL) Performed By: #### U CHRISTINAO, UA, DIOGENES #### [facility] [address] [place], [place] [phone] Customer Operations Manager: Campos Chandra MD Propoxyphene,Urine Negative Normal [facility] Comment on above: Result Comment: (Positive cutoff 300 ng/mL) Performed By: #### U MICAO, UA, DIOGENES #### [facility] [address] [place], [place] [phone] Customer Operations Manager: Campos Chandra MD Tricyclic antidepressants Screen Ql (U) Negative Normal [facility] Comment on above: Result Comment: (Positive cutoff 300 ng/mL) Drug screen results are to be used for medical purposes only. All positive results are unconfirmed. Testing for employment or legal uses should be sent to a reference laboratory for confirmation. Performed By: #### U MICAO, UA, DIOGENES #### [facility] [address] [place], [place] [phone] Customer Operations Manager: Campos Chandra MD Buprenorphrine, Ur NOT REPORTED Normal NEG [facility] Comment on above: Performed By: #### U MICAO, UA, DIOGENES #### [facility] [address] [place] [address] Customer Operations Manager: Campos Chandra MD Interpretive Info NOT REPORTED Normal [facility] Comment on above: Performed By: #### U MICAO, UA, DIOGENES #### [facility] [address] [place] [address] Customer Operations Manager: Campos Chandra MD MDMA, Urine NOT REPORTED Normal NEG [facility] Comment on above: Performed By: #### U MICAO, UA, DIOGENES #### [facility] [address] [place] [address] Customer Operations Manager: Campos Chandra MD Drug screen multi urineOrder ed By: Venecia Patterson on 04-30-2021 Amphetamine Screen, Ur Negative NEGATIVE [facility] [place] Work Phone: Comment on above: (Positive cutoff 500 ng/mL) Barbiturate Screen, Ur Negative NEGATIVE [facility] Work Phone: Comment on above: (Positive cutoff 200 ng/mL) Benzodiazepine Screen, Urine Negative NEGATIVE [facility] Work Phone: Comment on above: (Positive cutoff 150 ng/mL) Buprenorphine Urine NOT REPORTED NEGATIVE [facility] [place] Work Phone: Cannabinoid Scrn, Ur Negative NEGATIVE [facility] [place] Work Phone: Comment on above: (Positive cutoff 50 ng/mL) Cocaine Metabolite, Urine Negative NEGATIVE [facility] Work Phone: Comment on above: (Positive cutoff 150 ng/mL) MDMA, Urine NOT REPORTED NEGATIVE [facility] [employer] Work Phone: Methadone Screen, Urine Negative NEGATIVE [facility] [place] Work Phone: Comment on above: (Positive cutoff 200 ng/mL) Methamphetamine, Urine Negative NEGATIVE [facility] [place] Work Phone: Comment on above: (Positive cutoff 500 ng/mL) Opiates, Urine Negative NEGATIVE [facility] Work Phone: Comment on above: (Positive cutoff 100 ng/mL) Oxycodone Screen, Ur Negative NEGATIVE [facility] Work Phone: Comment on above: (Positive cutoff 100 ng/mL) Phencyclidine, Urine Negative NEGATIVE [facility] Work Phone: Comment on above: (Positive cutoff 25 ng/mL) Propoxyphene, Urine Negative NEGATIVE [facility] Work Phone: Comment on above: (Positive cutoff 300 ng/mL) Test Information NOT REPORTED [facility] [place] Work Phone: Tricyclic Antidepressants, Urine Negative NEGATIVE [facility] Work Phone: Comment on above: (Positive cutoff 300 ng/mL) Drug screen results are to be used for medical purposes only. All positive results are unconfirmed. Testing for employment or legal uses should be sent to a reference laboratory for confirmation. [employer] Phone: HCG, Quanton 04-30-2021 HCG, Quant 99441 IU/L High <5 [facility] Comment on above: Result Comment: Non-preg premeno <=5 Postmeno <=8 Male <=3 If HCG results do not concur with clinical observations, additional testing to confirm results is recommended. Elevated results not associated with may be found in patients with other diseases such as tumors of the germ cells (testis, ovaries, etc.), bladder, pancreas, stomach, lungs, and liver. Performed By: #### B HCG #### [facility] [address] [place] [address] Customer Operations Manager: Campos Chandra MD Magnesiumon 04-30-2021 Magnesium [Mass/Vol] 1.8 mg/dL Normal 1.6-2.6 [facility] Comment on above: Performed By: #### M G, CMPX, CDP #### [facility] [address] [place] [address] Customer Operations Manager: Campos Chandra MD MagnesiumOrdered By: Venecia liu on 04-30-2021 Magnesium [Mass/Vol] 1.8 mg/dL 1.6 - 2 .6 mg/dL [facility] [place] Work Phone: [facility] Work Phone: Microscopic UrinalysisOrdere d By: Venecia Patterson on 04-30-2021 - [facility] Work Phone: Amorphous, UA NOT REPORTED None [facility] Work Phone: Bacteria, UA NOT REPORTED None [facility] Work Phone: Casts UA NOT REPORTED /LPF [facility] Work Phone: Crystals, UA NOT REPORTED None /HPF [facility] Work Phone: Epithelial Cells UA NOT REPORTED /HPF [facility] Work Phone: Mucus, UA NOT REPORTED None [facility] Work Phone: Other Observations UA NOT REPORTED NOT REQ. [facility] [place] Work Phone: RBC, UA LOADED [facility] Work Phone: Renal Epithelial, UA NOT REPORTED 0 /HPF [facility] Work Phone: Trichomonas, UA NOT REPORTED None [facility] Work Phone: WBC, UA 2 TO 5 0 /HPF [facility] Work Phone: Yeast, UA NOT REPORTED None [facility] Work Phone: [facility] Work Phone: Urinalysis, Routineon 2020 Bilirubin, SemiQt,Ur Negative Normal NEG [facility] Comment on above: Performed By: #### U MICAO, UA, DIOGENES #### [facility] [address] [place] [address] Customer Operations Manager: Campos Chandra MD Blood, Urine 3+ Abnormal NEG [facility] Comment on above: Performed By: #### U MICAO, UA, DIOGENES #### [facility] [address] [place] [address] Customer Operations Manager: Campos Chandra MD Clarity (U) CLOUDY Abnormal CLEAR [facility] Comment on above: Performed By: #### U MICAO, UA, DIOGENES #### [facility] [address] [place] [address] Customer Operations Manager: Campos Chandra MD Color (U) YELLOW Normal YEL [facility] Comment on above: Performed By: #### U MICAO, UA, DIOGENES #### [facility] [address] [place] [address] Customer Operations Manager: Campos Chandra MD Comment Normal [facility] Comment on above: Performed By: #### U MICAO, UA, DIOGENES #### [facility] [address] [place] [address] Customer Operations Manager: Campos Chandra MD Glucose Ql (U) Negative Normal NEG [facility] Comment on above: Performed By: #### U MICAO, UA, DIOGENES #### [facility] [address] [place] [address] Customer Operations Manager: Campos Chandra MD Ketones Ql (U) Negative Normal NEG [facility] Comment on above: Performed By: #### U MICAO, UA, DIOGENES #### [facility] [address] [place] [address] Customer Operations Manager: Campos Chandra MD Leukocyte esterase Test strip Ql (U) 1+ Abnormal NEG [facility] Comment on above: Performed By: #### U MICAO, UA, DIOGENES #### [facility] [address] [place], [place] [phone] Customer Operations Manager: Campos Chandra MD Nitrite,Ur Negative Normal NEG [facility] Comment on above: Performed By: #### U MICAO, UA, DIOGENES #### [facility] [address] [place] [address] Customer Operations Manager: Campos Chandra MD PH,Ur 5.0 Normal 5.0-8.0 [facility] Comment on above: Performed By: #### U MICAO, UA, DIOGENES #### [facility] [address] [place] [address] Customer Operations Manager: Campos Chandra MD Protein Ql (U) 3+ Abnormal NEG [facility] Comment on above: Performed By: #### U MICAO, UA, DIOGENES #### [facility] [address] [place] [address] Customer Operations Manager: Campos Chandra MD Spec. Gloster,Ur 1.025 Normal 1.005-1.030 [facility] Comment on above: Performed By: #### U MICAO, UA, DIOGENES #### [facility] [address] [place] [phone] Customer Operations Manager: Campos Chandra MD Urobilinogen,Ur Normal Normal NORM [facility] Comment on above: Performed By: #### U MICAO, UA, DIOGENES #### [facility] [address] [place] [phone] Customer Operations Manager: Campos Chandra MD Urinalysis, reflex to micros copicOrdered By: Venecia Patterson on 04-30-2021 Bilirubin Urine Negative NEGATIVE [facility] Work Phone: Color, UA YELLOW YELLOW [facility] Work Phone: Glucose, Ur Negative NEGATIVE [facility] Work Phone: Interpretation and review of laboratory results Abnormal [facility] Work Phone: Ketones Ql (U) Negative NEGATIVE [facility] Work Phone: Leukocyte esterase Test strip Ql (U) 1+ Abnormal NEGATIVE [employer] Phone: Nitrite, Urine Negative NEGATIVE Localize Direct [facility] [employer] Work Phone: pH, UA 5.0 [facility] Work Phone: Protein, UA 3+ Abnormal NEGATIVE [facility] Phone: Specific Gloster, UA 1.025 [employer] Work Phone: Turbidity UA CLOUDY Abnormal CLEAR [email or web address] Work Phone: Urinalysis Comments [employer] Phone: Urine Hgb 3+ Abnormal NEGATIVE [facility] Phone: Urobilinogen, Urine Normal Normal [facility]: [employer] Phone: Urinalysis,Microon 1 ----- Normal [facility] Comment on above: Performed By: #### U MICAO, UA, DIOGENES #### [facility] [address] [phone] Customer Operations Manager: Campos Chandra MD Urine RBC's LOADED Normal 0-2 [facility] Comment on above: Performed By: #### U MICAO, UA, DIOGENES #### [facility] [address] [place] [address] Customer Operations Manager: Campos Chandra MD Urine WBC's 2 TO 5 Normal 0 [facility] Comment on above: Performed By: #### U MICAO, UA, DIOGENES #### [facility] [address] [place] [address] Customer Operations Manager: Campos Chandra MD Amorphous sediment LM Ql (Urine sed) NOT REPORTED Normal NONE [facility] Comment on above: Performed By: #### U MICAO, UA, DIOGENES #### [facility] [address] [place], [place] [phone] Customer Operations Manager: Campos Chandra MD Bacteria NOT REPORTED Normal NONE [facility] Comment on above: Performed By: #### U MICAO, UA, DIOGENES #### [facility] [address] [place], [place] [phone] Customer Operations Manager: Campos Chandra MD Casts NOT REPORTED Normal [facility] Comment on above: Performed By: #### U MICAO, UA, DIOGENES #### [facility] [address] [place], [place] [phone] Customer Operations Manager: Campos Chandra MD Crystals LM Nom (Urine sed) NOT REPORTED Normal NONE [facility] Comment on above: Performed By: #### U MICAO, UA, DIOGENES #### [facility] [address] [place] [address] Customer Operations Manager: Campos Chandra MD Epithelial cells LM Ql (Urine sed) NOT REPORTED Normal [facility] Comment on above: Performed By: #### U MICAO, UA, DIOGENES #### [facility] [address] [place] [address] Customer Operations Manager: Campos Chandra MD Epithelial, Renal NOT REPORTED Normal 0 [facility] Comment on above: Performed By: #### U MICAO, UA, DIOGENES #### [facility] [address] [place] [address] Customer Operations Manager: Campos Chandra MD Mucus Strands NOT REPORTED Normal NONE [facility] Comment on above: Performed By: #### U MICAO, UA, DIOGENES #### [facility] [address] [place] [address] Customer Operations Manager: Campos Chandra MD Other Observations NOT REPORTED Normal NREQ [facility] Comment on above: Performed By: #### U MICAO, UA, DIOGENES #### [facility] [address] [place], [place] [phone] Customer Operations Manager: Campos Chandra MD Trichomonas NOT REPORTED Normal NONE [facility] Comment on above: Performed By: #### U ROSALIA UA, DIOGENES #### [facility] [address] [place], [place] [phone] Customer Operations Manager: Campos Chandra MD Yeast NOT REPORTED Normal NONE [facility] Comment on above: Performed By: #### U ROSALIA UA, DIOGENES #### [facility] [address] [place], [place] [phone] Customer Operations Manager: Campos Chandra MD hCG, quantitative, Ordered By: Venecia Patterson on 04-30-2021 hCG Quant 38905 High <5 IU/L [facility] Phone: Comment on above: Non-preg premeno [...] Interpretation and review of laboratory results Abnormal [facility] Phone: [facility] Phone: RPR QUANTon 04-12-2021 Rapid Plasma Reagin, Quant Non-Reactive Normal NonRea<1:1 [facility] Comment on above: Performed By: #### R PRQ #### [facility] [address] [place] [address] Carlos Hull HEP B SURFACE ANTIGEN SCREEN on 04-11-2021 HBsAg Screen Negative Normal Negative [facility] Comment on above: Performed By: #### R UBIGG #### [facility] [address] [place] [address] Carlos Hull HEPATITIS C VIRUS AB W/ REFL EX QUANTon 04-11-2021 HCV AB <0.1 Normal 0.0-0.9 [facility] Comment on above: Performed By: #### H CVPCRR #### [facility] [address] [place] [address] Carlos Hull Interpretation: Comment Normal [facility] Comment on above: Result Comment: Nega tive Not infected with HCV, unless recent infection is suspected or other evidence exists to indicate HCV infection. Performed By: #### H CVPCRR #### [facility] [address] [place] [address] Carlos Hull HIV 1 AND 2 WITH REFLEXon HIV Screen 4th Generation wRfx Non-Reactive Normal Non Reactive [facility] Comment on above: Performed By: #### R PRQ #### [facility] [address] [place] [address] Carlos Hull RUBELLA AB IGGon 04-11-2021 Rubella Antibodies, IgG 2.95 index Normal Immune >0.99 [facility] Comment on above: Result Comment: Non- immune <0.90 Equivocal 0.90 - 0.99 Immune >0.99 Performed By: #### R UBIGG #### [facility] [address] [place] [address] Carlos Hull CBC AUTO DIFFon 04-10-2021 BASO # 0.0 103/ul Normal 0.0-0.1 [facility] Comment on above: Performed By: #### R UBIGG #### [facility] [address] [place] [address] Carlos Della Basophils/100 WBC (Bld) 0.3 % Normal 0.2-2.0 [facility] Comment on above: Performed By: #### R UBIGG #### [facility] [address] [place] [address] Carlos Hull EO # 0.0 103/ul Normal 0.0-0.7 [facility] Comment on above: Performed By: #### R UBIGG #### [facility] [address] [place] [address] Carlos Della Eosinophils/100 WBC (Bld) 0.5 % Critically low 0.9-7.0 [facility] Comment on above: Performed By: #### R UBIGG #### [facility] [address] [place] [address] Carlos Della Erythrocyte distribution width (RBC) [Ratio] 12.3 % Normal 11.0-15.0 [facility] Comment on above: Performed By: #### R UBIGG #### [facility] [address] [place] [address] Carlos Della Hematocrit (Bld) [Volume fraction] 39.2 % Normal 36.0-48.0 [facility] Comment on above: Performed By: #### R UBIGG #### [facility] [address] [place] [address] Carlos Della Hemoglobin (Bld) [Mass/Vol] 13.0 g/dL Normal 12.0-16.0 [facility] Comment on above: Performed By: #### R UBIGG #### [facility] [address] [place] [address] Carlos Della IG # 0.01 10e3/ul Normal 0.00-0.03 [facility] Comment on above: Performed By: #### R UBIGG #### [facility] [address] [place] [address] Carlos Della IG % 0.2 % Normal 0.0-0.5 [facility] Comment on above: Performed By: #### R UBIGG #### [facility] [address] [place] [address] Carlos Della LYMPH # 1.7 103/ul Normal 1.2-3.8 [facility] Comment on above: Performed By: #### R UBIGG #### [facility] [address] [place] [address] Carlos Della Lymphocytes/100 WBC (Bld) 25.5 % Normal 20.5-60.0 [facility] Comment on above: Performed By: #### R UBIGG #### [facility] [address] [place] [address] Carlos Della MANUAL DIFF REQ NO Normal [facility] Comment on above: Performed By: #### R UBIGG #### [facility] [address] [phone] Carlosgaurang Hull MCH (RBC) [Entitic mass] 30.2 pg Normal 26.7-34.0 [facility] Comment on above: Performed By: #### R UBIGG #### [facility] [address] [place], [place] [phone] Carlosgaurang Hull MCHC (RBC) [Mass/Vol] 33.2 g/dL Normal 29.9-35.2 [facility] Comment on above: Performed By: #### R UBIGG #### [facility] [address] [place] [address] Carlosgaurang Hull MCV (RBC) [Entitic vol] 91.2 fL Normal 81.0-99.0 [facility] Comment on above: Performed By: #### R UBIGG #### [facility] [address] [place] [address] Carlosgaurang Wicken MONO # 0.6 103/ul Normal 0.3-0.8 [facility] Comment on above: Performed By: #### R UBIGG #### [facility] [address] [place] [address] Carlos Hull Monocytes/100 WBC (Bld) 8.7 % Normal 1.7-12.0 [facility] Comment on above: Performed By: #### R UBIGG #### [facility] [address] [place] [address] Carlos Hull NEUT # 4.2 103/ul Normal 1.4-6.5 [facility] Comment on above: Performed By: #### R UBIGG #### [facility] [address] [place] [address] Carlos Della Neutrophils/100 WBC (Bld) 64.8 % Normal 43.0-75.0 [facility] Comment on above: Performed By: #### R UBIGG #### [facility] [address] [place], [place] [phone] Carlos Della Platelet mean volume (Bld) [Entitic vol] 9.2 fL Critically low 9.5-13.5 [facility] Comment on above: Performed By: #### R UBIGG #### [facility] [address] [place], [place] [address] Carlos Della PLT 246 103/ul Normal 150-450 [facility] Comment on above: Performed By: #### R UBIGG #### [facility] [address] [place], [place] [address] Carlos Della RBC 4.30 106/ul Normal 4.20-5.40 [facility] Comment on above: Performed By: #### R UBIGG #### [facility] [address] [place], [place] [address] Carlos Della WBC 6.5 103/ul Normal 4.0-11.0 [facility] Comment on above: Performed By: #### R UBIGG #### [facility] [address] [place], [place] [phone] Carlosgaurang Hull CULTURE URINEon 04-10-2021 CULTURE URINE Culture Observations: NO GROWTH Normal [facility] Comment on above: Performed By: #### R PRQ #### [facility] [address] [place], [place] [address] Carlosgaurang Hull GLYCOHEMOGLOBIN A1Con 2020 ADA RECOMMENDATION ADA THERAPEUTIC TARGET 6.0 - 7.0 ACTION SUGGESTED > 7.0 Normal [facility] Comment on above: Performed By: #### R UBIGG #### [facility] [address] [place], [place] [address] Carlos Della Glucose [Mass/Vol] 94 mg/dL Normal [facility] Comment on above: Performed By: #### R UBIGG #### [facility] [address] [place] [address] Carlos Della HbA1c (Bld) [Mass fraction] 4.9 % Normal <=6.0 [facility] Comment on above: Performed By: #### R UBIGG #### [facility] [address] [place], [place] [address] Carlosgaurang Hull BENJAMIN BOX TEST PT SEND OUTo n 04-10-2021 SENT TO REF LAB 04/10/2021 Normal [facility] Comment on above: Performed By: #### R UBIGG #### [facility] [address] [place], [place] [address] Carlosgaurang Hull TYPE AND SCREENon 04-10-2021 TYPE AND SCREEN Negative Normal [facility] Comment on above: Performed By: #### T NS #### [facility] [address] [place], [place] [address] Carlos Hull US PREG TVon 04-02-2021 US [...] by: AYDE MIN Date: 2021-04-02 09:55 Normal [facility] PAP ACOG PANEL 2: 30 to 65on 12-31-2020 . . Normal [facility] Comment on above: Result Comment: Perf ormed at: WB Performed By: #### [id number] #### [facility] [address] [place] [phone] Carlos Hull Age Gdln ACOG Testing 30-65 Normal [facility] Comment on above: Performed By: #### [id number] #### [facility] [address] [place], [place] [address] Carlos Hull DIAGNOSIS: Comment Abnormal [facility] Comment on above: Result Comment: EPIT HELIAL CELL ABNORMALITY. LOW GRADE SQUAMOUS INTRAEPITHELIAL LESION (LSIL). PREDOMINANCE OF COCCOBACILLI CONSISTENT WITH SHIFT IN VAGINAL MARA IS PRESENT. Performed at: WB Performed By: #### [id number] #### [facility] [address] [place] [phone] Carlos Wicken Electronically signed by: Comment Normal [facility] Comment on above: Result Comment: Mavis li Baksi, MD, Pathologist Performed at: WB Performed By: #### [id number] #### [facility] [address] [place] [address] Carlos Hull HPV Aptima Positive Abnormal Negative [facility] Comment on above: Result Comment: This nucleic acid amplification test detects fourteen high-risk HPV types (16,18,31,33,35,39,45,51,52,56,58,59,66,68) without differentiation. Performed at: =G Performed By: #### [id number] #### [facility] [address] [place] [address] Carlos Hull Methodology: Comment Normal [facility] Comment on above: Result Comment: This liquid based ThinPrep(R) pap test was screened with the use of an image guided system. Performed at: WB Performed By: #### [id number] #### [facility] [address] [place] [address] Carlos Hull Note: Comment Normal [facility] Comment on above: Result Comment: The Pap smear is a screening test designed to aid in the detection of premalignant and malignant conditions of the uterine cervix. It is not a diagnostic procedure and should not be used as the sole means of detecting cervical cancer. Both false-positive and false-negative reports do occur. . Performed at: WB Performed By: #### [id number] #### [facility] [address] [place] [address] Carlos Hull Pathologist Provided ICD10 Comment Normal [facility] Comment on above: Result Comment: R87. 612, R87.5 Performed at: WB Performed By: #### [id number] #### [facility] [address] [place] [address] Carlos Hull Performed by: Comment Normal [facility] Comment on above: Result Comment: Roxana Conrad Pallet Stone Positioner (ASCP) Performed at: WB Performed By: #### [id number] #### [facility] [address] [place] [address] Carlos Hull Recommendation: Comment Abnormal [facility] Comment on above: Result Comment: Sugg est follow up as clinically appropriate. Performed at: WB Performed By: #### [id number] #### [facility] [address] [place], [place] [address] Carlos Hull Specimen adequacy: Comment Normal [facility] Comment on above: Result Comment: Sati sfactory for evaluation. Endocervical and/or squamous metaplastic cells (endocervical component) are present. Performed at: WB Performed By: #### [id number] #### [facility] [address] [place], [place] [address] Carlos Hull Vital Signs Date Time Vital Sign Value Performing Clinician Facility 07-22-2025 08:44-0400 Body height 170.2 cm Jie Zhao NP Work Phone: [facility] 07-22-2025 08:44-0400 Body mass index (BMI) [Ratio] 28 kg/m2 Jie Zhao COVERING AND LINING SUPERVISOR Work Phone: [facility] 07-22-2025 08:44-0400 Body weight 81.1 kg Jie Zhao COVERING AND LINING SUPERVISOR Work Phone: [facility] 07-22-2025 08:44-0400 Diastolic blood pressure 68 mm[Hg] Jie Cece [employer]OVERING AND LINING SUPERVISOR Work Phone: [facility] 07-22-2025 08:44-0400 Systolic blood pressure 118 mm[Hg] Jie Cece COVERING AND LINING SUPERVISOR Work Phone: [facility] 07-09-2025 13:34-0400 Body mass index (BMI) [Ratio] 28.32 kg/m2 Sudhir Cecilia DO Work Phone: [facility] 07-09-2025 13:34-0400 Body weight 82.01 kg Sudhir Cecilia DO Work Phone: [facility] 07-09-2025 13:34-0400 Diastolic blood pressure 70 mm[Hg] Sudhir Cecilia DO Work Phone: [facility] 07-09-2025 13:34-0400 Systolic blood pressure 116 mm[Hg] Sudhir Cecilia DO Work Phone: [facility] 10-19-2022 16:55-0500 Body temperature 98.06 [degF] Chucho Kwon [facility] 10-19-2022 16:55-0500 Diastolic blood pressure 102 mm[Hg] Chucho Kwon [facility] 10-19-2022 16:55-0500 Heart rate 91 /min Chucho Kwon [facility] 10-19-2022 16:55-0500 Respiratory rate 18 /min Chucho Kwon [facility] 10-19-2022 16:55-0500 SaO2% (BldA) [Mass fraction] 98 % Chucho Kwon [facility] 10-19-2022 16:55-0500 Systolic blood pressure 146 mm[Hg] Chucho Kwon [facility] 05-21-2021 00:06-0400 Body weight 75.[address] EL JAIME [facility] Comment on above: Performed By: #### AFPMAT #### [facility] [address] [place] [address] Carlos Hull 04-30-2021 17:33-0400 Body height 170.2 cm Venecia Patterson MD Work Phone: [email or web address] Work Phone: 04-30-2021 17:33-0400 Body mass index (BMI) [Ratio] 25.98 kg/m2 Venecia Patterson MD Work Phone: [email or web address] Work Phone: 04-30-2021 17:33-0400 Body temperature 97.9 [degF] Venecia Patterson MD Work Phone: [email or web address] Work Phone: 04-30-2021 17:33-0400 Body weight 75.25 kg Venecia Patterson MD Work Phone: [email or web address] Work Phone: 04-30-2021 17:33-0400 Diastolic blood pressure 73 mm[Hg] Venecia Patterson MD Work Phone: [email or web address] Work Phone: 04-30-2021 17:33-0400 Heart rate 71 /min Venecia Patterson MD Work Phone: [email or web address] Work Phone: 04-30-2021 17:33-0400 Respiratory rate 18 /min Venecia Patterson MD Work Phone: [email or web address] Work Phone: 04-30-2021 17:33-0400 SaO2% (BldA) [Mass fraction] 100 % Venecia Patterson MD Work Phone: [email or web address] Work Phone: 04-30-2021 17:33-0400 Systolic blood pressure 127 mm[Hg] Venecia Patterson MD Work Phone: [email or web address] Work Phone: 04-08-2021 20:32-0400 Body temperature 98.2 [degF] Anthony Barba MD Work Phone: [email or web address] Work Phone: 04-08-2021 20:32-0400 Body weight 76.61 kg Anthony Barba MD Work Phone: [email or web address] Work Phone: 04-08-2021 20:32-0400 Diastolic blood pressure 76 mm[Hg] Anthony Barba MD Work Phone: [email or web address] Work Phone: 04-08-2021 20:32-0400 Heart rate 66 /min Anthony Barba MD Work Phone: [email or web address] Work Phone: 04-08-2021 20:32-0400 Respiratory rate 18 /min Anthony Barba MD Work Phone: [email or web address] Work Phone: 04-08-2021 20:32-0400 SaO2% (BldA) [Mass fraction] 98 % Anthony Barba MD Work Phone: [email or web address] Work Phone: 04-08-2021 20:32-0400 Systolic blood pressure 117 mm[Hg] Anthony Barba MD Work Phone: [email or web address] Work Phone: Encounters Encounter Date Encounter Type Care Provider Facility Start: 07-22-2025 End: 07-22-2025 Bamboo flowsheet Jie Zhao COVERING AND LINING SUPERVISOR Work Phone: [facility] Start: 07-22-2025 End: 07-22-2025 Bamboo flowsheet Jie Zhao COVERING AND LINING SUPERVISOR Work Phone: [facility] Start: 07-22-2025 End: 07-22-2025 Postop follow up visit related to original px Jie Zhao COVERING AND LINING SUPERVISOR Work Phone: [facility] Comment on above: Status post D&C; Positive urine test ([facility]) Start: 07-22-2025 End: 07-22-2025 ambulatory JIE ZHAO Not Available Start: 07-11-2025 End: 07-11-2025 ambulatory NON STAFF [facility] Work Phone: Start: 07-11-2025 End: 07-11-2025 Departed Referred NON STAFF -[facility] Start: 07-09-2025 End: 07-09-2025 Clinisync Result Encounter Sudhir Cecilia DO Work Phone: [facility] External Department Unsolicited Start: 07-09-2025 End: 07-09-2025 Clinisync Result Encounter Sudhir Cecilia DO Work Phone: [facility] External Department Unsolicited Start: 07-09-2025 End: 07-09-2025 Office outpatient visit 15 minutes Sudhir Vazquezo DO Work Phone: [facility] Comment on above: Encounter for IUD re moval; Missed menses; Positive urine test ([facility]) Start: 07-09-2025 End: 07-09-2025 ambulatory SUDHIR BROOKS Not Available Start: 07-08-2025 End: 07-08-2025 Clinisync Result Encounter Sudhir Cecilia DO Work Phone: [facility] External Department Unsolicited Start: 07-08-2025 End: 07-08-2025 Clinisync Result Encounter Sudhir Cecilia DO Work Phone: [facility] External Department Unsolicited Start: 04-17-2025 End: 04-17-2025 ambulatory [facility] Start: 06-06-2024 End: 06-06-2024 ambulatory [facility] Start: 10-19-2022 End: 10-19-2022 Emergency department patient visit Chucho Kwon Facility[facility] Start: 10-19-2022 End: 10-19-2022 Emergency department patient visit Chucho Kwon [facility] Start: 10-15-2021 End: 10-17-2021 Evaluation and [...] 04-30-2021 Emergency department patient visit VENECIA [facility] Start: 04-30-2021 End: 04-30-2021 Emergency department patient visit Venecia Patterson MD Work Phone: [facility] ED Comment on above: Vaginal bleeding in (Primary Dx) Start: 04-30-2021 End: 05-01-2021 ambulatory GLEN PACKER Facility:H1 Start: 04-10-2021 End: 04-11-[address] EL JAIME Facility:H1 Start: 04-08-2021 End: 04-08-2021 Emergency department patient visit [facility] Start: 04-08-2021 End: 04-08-2021 Emergency department patient visit Anthony Barba MD Work Phone: [facility] ED Comment on above: Dental infection (Pr [...] MD Work Phone: Start: 06-17-2017 Removal Chucho lemon Comment on above: rt wrist mass remova l H/O: surgery Status post D&C Jie pinzon COVERING AND LINING SUPERVISOR Work Phone: Plan of Treatment Date Care Activity Detail Author Start: 08-13-2025 End: 08-13-2025 Patient encounter procedure 08/13/2025 10:20 AM EDT Procedure Visit KRISTAL FRAZIER [address] [facility] [facility] [address] [place] [address] Sudhir Brooks, DO [address] [place] [address] KRISTAL FRAZIER Start: 08-05-2025 End: 08-05-2025 Patient encounter procedure 08/05/2025 1:30 PM EDT Procedure Visit NOMElroy FRAZIER [address] [facility] [place] [address] Sudhir Brooks, DO [address] [place], [place] [id number] KRISTAL FRAZIER Start: 07-22-2025 End: 07-22-2025 Patient encounter procedure 07/22/2025 8:40 AM EDT Office Visit NOMElroy FRAZIER [address] [facility] [place] [address] Jie Zhao, COVERING AND LINING SUPERVISOR [address] [place] [id number] Arrived DOUGElroy Jeanna FRAZIER Comment on above: Arrived Start: 07-09-2025 End: 10-08-2025 US Pelvis transvaginal US OB transvaginal Imaging Routine Missed menses Positive urine test ([facility]) Expected: 07/09/2025, Expires: 10/08/2025 [facility] Work Phone: Comment on above: Expected: 07/09/2025 , Expires: 10/08/2025 Start: 07-09-2025 End: 07-09-2025 Patient encounter procedure 07/09/2025 1:10 PM EDT Procedure Visit KRISTAL FRAZIER [address] [place] [id number] Sudhir Brooks DO [address] [place] [address] KRISTAL [facility]eeks [facility] Start: 06-17-2025 Influenza vaccination Influenza Vacc ine (#1) [facility] Start: 06-17-2021 [facility] Start: 02-03-2018 Screening for malign ant neoplasm of cervix [facility] Start: 02-03-2009 Screening for malign ant neoplasm of cervix Pap Smear [facility] Start: 2000 COVID-19 Vaccine (1) COVID-19 [facility]in e ([facility] End: 04-30-2021 Culture, Urine Culture, Urine Microbiology Routine Once for 1 Occurrences starting 04/30/2021 until 04/30/2021 [employer] Phone: Comment on above: Once for 1 Occurrenc es starting 04/30/2021 until 04/30/2021 Culture, Urine Culture, Urine Microbiology Routine 04/30/2021 6:10 PM EDT [facility] End: 07-22-2026 hCG, quantitative, hCG, quantitative, Lab Routine Status post D&C 6 Occurrences starting 07/22/2025 until 07/22/2026 [facility] Work Phone: Comment on above: 6 Occurrences starti ng 07/22/2025 until 07/22/2026 Payers Date Payer Category Payer [place] [employer] [facility] [id number] 2023 Unknown [id number] 1988 Unknown [id number] 2.16.840.1.432559.3.579.2. 174 1988 Unknown [id number] 2.16.840.1.066407.3.579.2. 174 1988 Unknown [id number] 2.16.840.1.429957.3.579.2. 593 1988 Unknown [id number] 2.16.840.1.991077.3.579.2. 593 1988 Unknown [id number] 2.16.840.1.135083.3.579.2. 593 1988 Unknown [id number] 2.16.840.1.835170.3.579.2. 593 1988 Unknown [id number] 2.16.840.1.413735.3.579.2. 593 1988 Unknown [id number] 2.16.840.1.067947.3.579.2. 593 1988 Unknown [id number] 2.16.840.1.160897.3.579.2. 593 1988 Unknown [id number] 2.16.840.1.289523.3.579.2. 593 1988 Unknown [id number] 2.16.840.1.411334.3.579.2. 593 1988 Unknown [id number] 2.16.840.1.061406.3.579.2. 593 1988 Unknown [id number] 2.16.840.1.332540.3.579.2. 593 1988 Unknown [id number] 2.16.840.1.159854.3.579.2. 593 1988 Unknown [id number] 2.16.840.1.252025.3.579.2. 727 1988 Unknown [id number] 2.16.840.1.150809.3.579.2. 1259 1988 Unknown [id number] 2.16.840.1.350620.3.579.2. 1259 1959 Private Health Insurance [id number] 1.2.840.775316.1.13.239.2. 7.3.093697.315 1959 Self-pay 1959 Unknown [id number] 1.2.840.900302.1.13.239.2. 7.3.532821.315 Medicaid [employer] Medicaid [id number] Unknown [id number] 2.16.840.1.820183.3.579.2. 593 Unknown [id number] 2.16.840.1.720696.3.579.2. 531 Social History Date Type Detail Facility Start: 04-08-2021 End: 07-22-2025 Tobacco smoking status TXIS Never smoker [employer] Phone: Start: 04-08-2021 End: 04-30-2021 Tobacco use and exposure Never used [email or web address] Application Start: 04-08-2021 End: 04-30-2021 Alcohol intake Lifetime non-drinker (finding) [employer] Phone: Start: 04-08-2021 History SDOH Alcohol Frequency 1 [employer] Phone: Start: 01-29-2021 Umu Dempsey Work Phone: Start: 1990 [facility]igned [facility] Work Phone: Exposure to SARS-CoV -2 (event) Not sure [email or web address] Application Start: 06-13-2017 Tobacco smoking status Smokes tobacco daily (finding) [facility] Comment on above: 10/18 ppd Start: 07-22-2025 Sex Assigned At Female F [facility] Tobacco smoking stat [facility] Tobacco smoking consumption unknown [facility] Sex Female (finding) [facility] Start: 1990 Sex Assigned At Female F [facility] Start: 07-22-2025 Alcoholic beverage intake Ex-drinker (finding) [facility] Start: 07-22-2025 History of Social function [facility] Functional Status Date Assessment Result Facility 10-19-2022 Functional Status N/A [facility] Clinical Notes 10-19-2022 to 07-22-2025 Jie Zhao NP - 07/22/2025 8:40 AM EDTMyasmin Burgess MA - 07/09/2025 1:10 PM EDT Note Date & Type Note Facility 07-22-2025 History of Presen t illness Narrative Reason for Appointment: Patient ID: Sofia Olivares [...] Surgical History: Procedure Laterality Date BACK SURGERY 2022 D&C FIRST TRIMESTER / TX INCOMPLETE / [...] nursing note reviewed. Exam conducted with a cocktail lounge manager present. Vitals: Estimated body mass index is 28 kg/m as calculated from the following: Height as of this encounter: 5' 7 . Weight as of this encounter: 178 lb 12.8 oz. BP: 118/68 No LMP recorded. ASSESSMENT & PLAN ICD-10-CM 1. Status post D&C Z98.890 hCG, quantitative, 2. Positive urine test ([facility]) Z32.01 Patient s/p D and C on 07/11/25. She reports no complaints of pain or bleeding. She was given an order to follow up serial HCG levels to below five. She is scheduled for salpingectomy next month. Documented by Jie Zhao NP on behalf of: Jie Zhao NP documented in this encounter [facility] 07-09-2025 History of Presen t illness Narrative [...] US OB transvaginal 3. Positive urine test ([facility]) Z32.01 US OB transvaginal IUD Removal Date/Time: [...] Sudhir Brooks DO documented in this encounter [facility] 10-19-2022 Hospital Discharg e instructions Patient Education [...] Follow these instructions at home: Medicines Take khcw-smu-cnzhmza and prescription medicines only as told by [...] and water are not available, use hand comic book artist. Avoid contact with people who have cold [...] 11/10/2005 Document Revised: 08/16/2019 Document Reviewed: 03/23/2017 [employer] Patient Education 2020 [employer] 10/19/2022 18:40:13 Upper Respiratory Infection, Adult, Ngyi-qw-Rvwd Upper Respiratory Infection, Adult An upper respiratory [...] and other clear broths. General instructions Take ebwm-zab-pgpfpbg and prescription medicines only as told by [...] not have soap and water, use hand comic book artist. Avoid touching your mouth, face, eyes, or [...] get better within 7 10 days. Take dlws-ivn-dlwmhrs and prescription medicines only as told by your doctor. This information is not intended to replace advice given to you by your health care provider. Make sure you discuss any questions you have with your health care provider. Document Released: 03/21/2009 Document Revised: 10/11/2019 Document Reviewed: 05/26/2018 [employer] Patient Education [employer] Follow Up Care 10/19/2022 16:53:44 With:Joaquim Link Address: [address] [place] [address]- Business (1) When:10/22/2022 18:20:33 Comments:Follow-up with your primary care provider in 3 to 5 days. If symptoms worsen, do not improve, or new symptoms arise please report back to emergency department for further evaluation. [facility] Evaluation + Plan note No data available for this section [facility] Evaluation note Diagnosis Dental infection- Primary Acute apical periodontitis of pulpal origin documented in this encounter [employer] Phone: evaluation note* Diagnosis Vaginal bleeding in - Primary Unspecified antepartum hemorrhage, unspecified as to episode of care documented in this encounter [employer] Phone: evaluation note* Diagnosis Encounter for IUD removal Missed menses Positive urine test ([facility]) documented in this encounter [facility] HealthcareEvaluation noteNo assessment information availableUc Health Work Phone: Evaluation note* Diagnosis Status post D&C Other postprocedural status Positive urine test ([facility]) documented in this encounter [facility] HealthcareHospital Discharge instructions* Attachments The following attachments cannot be sent through Care Everywhere. * Tooth: Abscessed (Cameroonian) [facility] Work Phone: Hospital Discharge instructions* Attachments The following attachments cannot be sent through Care Everywhere. * : Vaginal Bleeding (Cameroonian) documented in this encounterW[facility] CenterPacket[facility] Work Phone: progress note No data available for this section [facility] HospitalReason for referral (narrative)No reason for referral information availableUc Health Work Phone: Summary Purpose Family History No Family History Records FoundNo Family History Records FoundNo Family History Records FoundNo Family History Records FoundNo Family History Records FoundNo Family History Records Found Advance Directives No Advanced Directives Records Found Advance Directive Response Recorded Date/ Time Advance Directives No June 3:23pm Additional Source Comments Reason for Visit (unrecogniz ed section and content) Reason Comments Dental Pain right lower dental p ain adn swelling since 04/07/21 evening Reason Comments Vaginal Bleeding Pt is 15 weeks pregn ant, pt of Dr. Jaime in [place]. Pt started bleeding this afternoon around 4pm. Pt called office and they told her to go to hospital. She came here because she lives in [place]. Pt also c/o abdominal cramping. Reason Comments IUD removal Patient has had posi tive test with Mirena. Patient desires Mirena to be removed. Reason Comments Pre-op Visit Post op suction D&C Ordered Prescriptions (unrec ognized section and content) [...] section and content) DATE CREATED AUTHOR 05/02/2021 [facility] DATE CREATED AUTHOR AUTHOR'S ORGANIZ ATION 10/23/2021 [facility] DATE CREATED AUTHOR AUTHOR'S ORGANIZ ATION 08/16/2023 [facility] DATE CREATED AUTHOR AUTHOR'S ORGANIZ ATION 04/19/2025 [facility] DATE CREATED AUTHOR AUTHOR'S ORGANIZ ATION 07/20/2025 [facility] DATE CREATED AUTHOR AUTHOR'S ORGANIZ ATION 07/24/2025 [facility] EPIC Patient Care team informatio n (unrecognized section and content) Art Education Professor Relationship Specialty Start Date End Date Nakul Elias DO [address] [place] [address] PCP - General Family Medicine 02/22/23 Art Education Professor Relationship Specialty Start Date End Date Nakul Elias DO [address] [place] [address] PCP - General Family Medicine 02/22/23 Team Status: Inactive Member Role Status Dates NON STAFF Attending Provider Active Start: 2024 End: July 11, 2025 Art Education Professor Relationship Specialty Start Date End Date Nakul Elias DO [address] [place] [address] PCP - General Family Medicine 02/22/23 Art Education Professor Relationship Specialty Start Date End Date Nakul Elias DO [address] [place] [address] PCP - General Family Medicine 02/22/23 Goals (unrecognized section and content) Goals may be documented in a n alternate section FOR RECORDS PERTAINING TO PATIENTS WHO ARE [...] BE BASED ON THE PRIMARY CLINICAL RECORDS. [facility]. provides no warranty or guarantee of the accuracy or completeness of information in this document.
== END 2025-08-05 07:41 | disposition home or self-care (01) ==
LOC: LAB 07:43
PROVIDERS: Visit Provider Obstetrics & Gynecology
DX: Z32.01 Encounter for pregnancy test, result positive (principal)
CPT/HCPCS: 36415; 84702

== ENCOUNTER 2025-08-13 14:58 | Outpatient (OUT) | payer BC, SELFPAY ==
--- OUTSIDE RECORDS SUMMARY | 2025-08-13 10:20 | XMS_ITS | Encounter Summary ---
Author Organization [facility] Address [address] [place] [address] Care Team Providers Care Meteorological Observer Name Role Phone Nakul Elias Primary Care Provider [phone] Reason for Visit * ReasonCommentsWell Women VisitPre-op Visit Encounter Details DateTypeDepartmentCare Team (Latest Contact Info)Vntogcbpwaw77/28/2025 10:20 AM EDTProcedure Visit [facility] [address] [place] [address] Sudhir Brooks DO [address] [place], [place] [id number] Well woman exam with routine gynecological exam; Pre-operative exam; Request for sterilization Social History Tobacco UseTypesPacks/DayYears UsedDateSmoking Tobacco: NeverAlcohol UseStandard Drinks/WeekCommentsNot Currently0 (1 standard drink = 0.6 oz pure alcohol) CommentsNoSex and Gender InformationValueDate RecordedSex Assigned at BirthNot on fileLegal UiuOycnzc70/15/2023 7:15 PM EDTGender IdentityNot on file Sexual OrientationNot on filedocumented as of this encounter Last Filed Vital Signs Vital SignReadingTime TakenCommentsBlood Jfpaomcr561/7808/13/2025 10:34 AM EDT Pulse--Temperature--Respiratory Rate--Oxygen Saturation--Inhaled Oxygen Concentration--Klyiuv39.9 kg (178 lb 6.4 oz)08/13/2025 10:34 AM EDTHeight--Body Mass Index27.9407/22/2025 8:44 AM EDTdocumented in this encounter Plan of Treatment NameTypePriorityAssociated DiagnosesOrder ScheduleHPV DNA probe, amplified MicrobiologyRoutine Well woman exam with routine gynecological exam Ordered: 08/13/2025Pap SmearPathology and CytologyRoutine Well woman exam with routine gynecological exam Ordered: 08/13/2025documented as of this encounter Visit Diagnoses Diagnosis Well woman exam with routine gynecological exam Routine gynecological examination Pre-operative exam Unspecified pre-operative examination Request for sterilization documented in this encounter Care Teams Team MemberRelationshipSpecialtyStart DateEnd Date Nakul Elias DO [address] [facility] [address] [place] [address] PCP - GeneralFamily Medicine02/22/23documented as of this encounter
--- OUTSIDE RECORDS SUMMARY | 2025-08-13 15:01 | XMS_ITS | Clinical Summary ---
Author Organization [facility] Address [address] [facility] [place] [address] Care Team Providers Care Electromechanical Assembly Technician Name Role Phone Nakul Elias DO Primary Care Provider [phone] Allergies No known active allergies Medications MedicationSigDispense QuantityRefillsLast FilledStart DateEnd DateStatus VIT-FE FUMARATE-FA PO Take 1 tablet by mouth DailyActive acetaminophen (Tylenol) 500 MG tablet Take 1,000 mg by mouth every 6 (six) hours if neededActive Active Problems ProblemNoted DateDiagnosed DateEncounter for IUD hatckjk8107/09/2025 Encounters DateTypeDepartmentCare ZtdcIujmyowvalo89/28/2025 10:20 AM EDTProcedure Visit [facility] [address] [place] [address] Luke Brooks DO Well woman exam with routine gynecological exam; Pre-operative exam; Request for bcowwmcsiohto44/28/2025amboo flowsheet [facility] [address] [place] [address] Luke Brooks DO 07/22/2025 8:40 AM EDTOffice Visit [facility] [address] [place] [address] Manda Zhao NP Status post D&C; Positive urine test ([facility])07/22/2025amboo flowsheet [facility] [address] [place] [address] Manda Zhao NP 07/12/2025bstract [facility] [address] [place] [address] Luke Brooks, DO 07/09/2025 1:10 PM EDTProcedure Visit [facility] [address] [place] [address] Luke Brooks, DO Encounter for IUD removal; Missed menses; Positive urine test ([facility])07/09/2025linisync Result Encounter [facility] External Department Unsolicited Luke Brooks, DO 07/08/2025bstract [facility] [address] [place] [address] Luke Brooks, DO 07/08/2025linisync Result Encounter [facility] External Department Unsolicited Luke Brooks, DO 07/08/2025Telephone [facility] [address] [address] Luke Brooks, DO 07/04/2025Telephone [facility] [address] [place] [address] Vero Lowe MA from Last 3 Months Social History Tobacco UseTypesPacks/DayYears UsedDateSmoking Tobacco: Never Tobacco Cessation:Counseling Given: Not Answered Alcohol UseStandard Drinks/WeekCommentsNot Currently0 (1 standard drink = 0.6 oz pure alcohol)CommentsNoSex and Gender InformationValueDate RecordedSex Assigned at BirthNot on fileLegal UvcRykoss60/15/2023 7:15 PM EDTGender Identity Not on fileSexual OrientationNot on file Last Filed Vital Signs Vital SignReadingTime TakenCommentsBlood Gofgtund900/7808/13/2025 10:34 AM EDT Pulse--Temperature--Respiratory Rate--Oxygen Saturation--Inhaled Oxygen Concentration--Vhtmxj92.9 kg (178 lb 6.4 oz)08/13/2025 10:34 AM ADNFamuaj357.2 cm (5' 7 )07/22/2025 8:44 AM EDTBody Mass Index27.9407/22/2025 8:44 AM EDT Plan of Treatment Health MaintenanceDue DateLast DoneCommentsMMR Vaccines (1 of 1 - Standard series)02/03/1989DTaP/Tdap/Td Vaccines (1 - Tdap)02/03/1995Varicella Vaccines (1 of 2 - 13+ 2-dose series)02/03/2001Hepatitis B Vaccines (1 of 3 - 19+ 3-dose series)02/03/2007Pap Smear02/03/2009HPV Vaccines (1 - 3-dose SCDM series) 02/03/2015Cervical Cancer Yeojvileh39/20/2018HPV/Gtxcpg7902/03/2018COVID-19 Vaccine ( - season)2025Influenza Vaccine (#1)2025HIB VaccinesAged OutNo longer eligible based on patient's age to complete this topic Hepatitis A VaccinesAged OutNo longer eligible based on patient's age to complete this topicIPV VaccinesAged OutNo longer eligible based on patient's age to complete this topicMeningococcal B VaccineAged OutNo longer eligible based on patient's age to complete this topicMeningococcal VaccineAged OutNo longer eligible based on patient's age to complete this topicPneumococcal Vaccine: Pediatrics (0 to 5 Years) and At-Risk Patients (6 to 64 Years)Aged OutNo longer eligible based on patient's age to complete this topicRotavirus VaccinesAged Out No longer eligible based on patient's age to complete this topic Procedures Procedure NamePriorityDate/TimeAssociated DiagnosisCommentsUS OB TRANSVAGINAL 07/09/2025 3:10 PM EDT IUD PJQHMKLHxttbav00/23/2025 1:52 PM EDT Encounter for IUD removal [facility] PREG QUANT MAPTdljmlz77/22/2025 1:10 PM EDT from Last 3 Months Results * US OB TRANSVAGINAL (07/09/2025 3:10 PM EDT)Anatomical RegionLateralityModality OtherSpecimen (Source)Anatomical Location / LateralityCollection Method / VolumeCollection TimeReceived Time07/09/2025 3:10 PM EDT Narrative 07/09/2025 3:30 PM EDT [facility] ?[address] ? [place] [address] ? Ultrasound Report ? Signed ? Patient: MARSHALL,HARSH R ?MR#: [id number] ?? : 1990 ?Acct:[id number] ?? Age/Sex: 35 / F ?ADM Date: 07/09/25 ?? Loc: US ? Attending Dr: Luke Brooks D.O. ? Ordering Physician: Luke Brooks D.O. ?? Date of Service: 07/09/25 ?? Procedure(s): US OB transvaginal ?? Accession Number(s): [id number] ? cc: Luke Brooks D.O.; SARWAT MURRAY ? [facility] ? [address] ? [place] [address] ? Patient Name: ?? HARSH DENNISON ? MRN: [facility]:[id number] ? date: 1990 ?Sex: F ?? Assigned Patient Location: ?? Current Patient Location: ?? Accession/Order Number: [id number] ?? Exam Date: 07/09/2025 ??14:32 ?Report Date: 07/09/2025 ??15:10 ? At the request of: ?? LUKE ??CECILIA ??DO ? Procedure: ??US OB transvaginal ? OB ultrasound. ? Reason for exam:Positive test. ??IUD was removed in office. ??Possible ?? ectopic . ??Per technologist, beta hCG is 80. ? Comparison:None ? Technique: Transvaginal imaging of the uterus and ovaries were obtained. ? Findings: ? No evidence of intrauterine is identified. ??No measurable fibroid. ? The right ovary measures 4.9 x 3.6 x 4.9 cm. ??The left ovary measures 3.6 x ?? 3.1 x 3.5 cm. ??There appears to be corpus luteum/hemorrhagic cysts involving ?? both ovaries largest measuring 3.8 x 3.3 x 3.9 cm involving the right ovary. ? No definite adnexal mass is seen. ??There is questionable small amount of ?? complex free fluid versus reverberation artifact. ? US/US OB transvaginal ?? Impression: ? No ultrasound evidence of intrauterine is identified. ??There appears ?? to be bilateral corpus luteum/hemorrhagic cysts involving both ovaries largest ?? measuring 3.9 cm involving the right ovary. ??No definite adnexal mass is seen. ?? There is questionable small amount of complex free fluid versus reverberation ?? artifact. ??Differential considerations includes early IUP or miscarriage. ? Given the questionable complex free fluid, an ectopic cannot BE ?? excluded. ??Correlation with beta-hCG trend is recommended . If intervention is ?? not performed, repeat ultrasound is also recommended. ? Impression dictated by: Ricardo Umanzor Jr., DGilesOGiles ??07/09/2025 3:10 PM ? Dictation Location: [place] [address] ? Electronically authenticated by: [id number] ??Y ?? Date: 07/09/2025 ??15:10 ? Dictated By: ?Ricardo Umanzor M.D. ? Signed By: ?07/09/25 1530 ? DD/ 1510 ? TD/TT: ? Field Artillery Fire Control Man: Procedure Note Radiology, Radiologist, MD - 07/09/2025 [facility] [place] [id number] Ultrasound Report Signed Patient: HARSH DENNISON RMR#: [id number] : 1990Acct:[id number] Age/Sex: 35 / FADM Date: 07/09/25 Loc: US Attending Dr: Luke Brooks D.O. Ordering Physician: Luke Brooks D.O. Date of Service: 07/09/25 Procedure(s): US OB transvaginal Accession Number(s): [id number] cc: Luke Brooks D.O.; SARWAT MURRAY The [address] [address] Patient Name: HARSH DENNISON MRN: [id number] date: 1990 Sex: F Assigned Patient Location: US Current Patient Location: US Accession/Order Number: [id number] Exam Date: 07/09/2025 14:32 Report Date: 07/09/2025 [...] Jr., D.O. 07/09/2025 3:10 PM Dictation Location: [place] [address] Electronically authenticated by: [id number] Y Date: 5:10 Dictated By: Ricardo Umanzor M.D. Signed By:07/09/25 1530 DD/ 1510 TD/TT: [employer] Fire Control Man: Authorizing ProviderResult TypeResult StatusCorey Cecilia DOCLINISYNC IMAGINGFinal Result * IUD REMOVAL (07/09/2025 1:52 PM EDT) Karina Bravo MA - 07/09/2025 1:52 PM EDT Karina Burgess MA 07/09/2025 2:05 PM IUD Removal Date/Time: 07/09/2025 1:52 PM Performed by: Luke Brooks DO Authorized by: Luke Brooks DO ?? Consent: ??Consent obtained: ??Written ??Consent given by: ??Patient ??Procedure risks and benefits discussed: yes ?Patient questions answered: yes ?Patient agrees, verbalizes understanding, and wants to proceed: yes ?Educational handouts given: no ?? Procedure: ??Removed with no complications: yes ?Removal due to mechanical complications of IUD: no ?Removal due to infection and inflammatory reaction: no ?Other reason for removal: ??Positive hCG Results Comments: ?? Pt had positive hCG results. Ultrasound ordered to further evaluate . Pt also wanting to schedule for bilateral salpingectomy. Authorizing ProviderResult TypeResult StatusLuke Brooks DOIN CLINIC/BEDSIDE ORDERABLESFinal Result * [facility] PREG QUANT HCG (07/08/2025 1:10 PM EDT)ComponentValueRef RangeTest Method Analysis TimePerformed AtPathologist SignatureHCG GURGUNYAPBNP67rEF/mLTBH Comment: 5-50 ? 0.2-1 WEEK 50-500 ? 1-2 WEEKS 100-5,000 ?2-3 WEEKS 500-10,000 ? 3-4 WEEKS 1,000-50,000 ?? 4-5 WEEKS 10,000-100,000 5-6 WEEKS 15,000-200,000 6-8 WEEKS 10,000-100,000 2-3 MONTHS Specimen (Source)Anatomical Location / LateralityCollection Method / Volume Collection TimeReceived Time07/08/2025 1:10 PM EDT07/08/2025 1:11 PM EDT Narrative [facility] - 07/08/2025 1:59 PM EDT Authorizing ProviderResult TypeResult StatusLuke Brooks DOCLINISYNCFinal Result Performing OrganizationAddressCity/State/ZIP CodePhone Number [facility] from Last 3 Months Insurance Care Teams Team MemberRelationshipSpecialtyStart DateEnd Date Nakul Elias DO [address] [place] [address] PCP - GeneralFamily Medicine02/22/23
--- OUTSIDE RECORDS SUMMARY | 2025-08-13 15:01 | XMS_ITS | Encounter Summary ---
Author Organization [facility] Address [address] [place] [address] Care Team Providers Care Luncheonette Operator Name Role Phone Nakul Elias DO Primary Care Provider [phone] Encounter Details DateTypeDepartmentCare Team (Latest Contact Info)Qgmrxrmimgh44/28/2025amboo flowsheet [facility] [address] [place] [address] Sudhir Brooks DO [address] [place], [facility] Social History Tobacco UseTypesPacks/DayYears UsedDateSmoking Tobacco: NeverAlcohol UseStandard Drinks/WeekCommentsNot Currently0 (1 standard drink = 0.6 oz pure alcohol) CommentsNoSex and Gender InformationValueDate RecordedSex Assigned at BirthNot on fileLegal RiyCwsesp84/15/2023 7:15 PM EDTGender IdentityNot on file Sexual OrientationNot on filedocumented as of this encounter Plan of Treatment Not on file documented as of this encounter Visit Diagnoses Not on filedocumented in this encounter Care Teams Team MemberRelationshipSpecialtyStart DateEnd Date Nakul Elias DO [address] [place] [address] PCP - GeneralFamily Medicine02/22/23documented as of this encounter
--- OUTSIDE RECORDS SUMMARY | 2025-08-13 15:20 | XMS_ITS | CCD ---
Author Organization [facility] Care Team Providers Care Beef Breaker Name Role Phone Yifan Umana Primary Care Provider VENECIA PATTERSON Attending Unavailable MURRAY, YIFAN A Primary Care Unavailable ANTHONY BARBA Attending Unavailable MURRAY, YIFAN A Primary Care Unavailable KARASIK, DR GALLEGOS Attending Unavailable KARASIK, DR GALLEGOS Admitting [facility] Unavailable KARASIK, DR GALLEGOS [...] Attending Unavailable MURRAY, YIFAN Primary Care Unavailable BLATA TORRES Consulting Unavailable YURIY WISE Consulting Unavailable KARASIK, DR GALLEGOS Admitting Unavailable KARASIK, DR GALLEGOS Attending Unavailable KARASIK, DR GALLEGOS Consulting Unavailable MURRAY, YIFAN Primary Care Unavailable ZIEBER, DR AYDE Sousa Consulting Unavailable KARASIK, DR GALLEGOS Admitting Unavailable KARASIK, DR GALLEGOS Attending Unavailable KARASIK, DR GALLEGOS Consulting Unavailable YIFAN MURRAY Primary Care Unavailable PRAMOD ELLIOTT Unavailable NOEL, DR GALLEGOS Procedure Practitioner Unava [...] Attending Unavailable Joaquim Osuna Primary Care Physician [phone] Chucho Kwon Attending Unavailable Sharath CALIX Attending Unavailable Sharath CALIX Attending Unavailable Nakul Elias DO Primary Care Provider NON STAFF Attending Provider Unavailable NON STAFF Attending Unavailable NON STAFF Admitting Unavailable SUDHIR BROOKS Attending Unavailable JIE ZHAO Attending Unavailable Allergies Allergy ClassificationReported Allergen(s)Allergy TypeDate of OnsetReaction(s) Facility (1 source)MorphineDrug Prdcojt83-93-8913XinsqlbxiOhiohealth [facility] Repository Medications Current Medications MedicationDrug Class(es)DatesSig (Normalized)Sig (Original)acetaminophen 500 mg oral tablet (7 sources)take 2 tablets by mouth every six hours as neededacetaminophen (Tylenol) 500 MG tablet Take 1,000 mg by mouth every 6 (six) hours if needed Activeacetaminophen 325 mg / HYDROcodone bitartrate 5 mg oral tablet (1 source)Opioid AgonistStart: 48-82-5316Pqwbl 325 mg-5 mg oral tablet See Instructions, for pain, 40 tab(s), Refill(s) 0, 1-2 tab(s) Oral q4hr Start Date: 06/17/17 Status: Orderedazithromycin 250 mg Tab 5-day Dose Pack (Z-Abe) (1 source)Start: 10-19-2022 End: 85-16-2796pscdpawokvdl 250 mg Tab 5-day Dose Pack (Z-Abe) = 1 packet(s), Oral, As Directed, as directed on package labeling, X 5 day(s), # 6 tab(s), Refills(s) 0, Pharmacy: [facility], 170, cm,10/19/22 16:59:00 EST, Height/Length Dosing, 66, kg, 10/19/22 16:59:00 EST, Weight Dosing Start Date: 10/19/22 Stop Date: 10/24/22 Status: Orderedcephalexin 500 mg oral capsule (1 source)Cephalosporin AntibacterialStart: 22-85-4938nvlw 1 capsule by mouth every eight hourscyclobenzaprine hydrochloride 10 mg oral tablet (1 source)Muscle RelaxantStart: 28-43-2443jcfs 1 tablet by mouth three times daily as needed for muscle spasmsdocusate sodium 100 mg oral capsule (1 source)Start: 28-92-8388wmva 1 capsule by mouth twice daily as needed for constipationColace 100 mg Cap 100 mg = 1 cap(s), Oral, BID, PRN for constipation, # 20 cap(s), Refills(s) 0 Start Date: 06/17/17 Status: Ordered gabapentin 300 mg oral capsule (1 source)Anti-epileptic AgentStart: 29-53-2382iryb 1 capsule by mouth three times dailynaproxen 500 mg delayed release oral tablet (2 sources)Nonsteroidal Anti-inflammatory DrugStart: 68-52-1555kgny 1 tablet by mouth twice daily at mealtimenaproxen 500 mg oral enteric coated tablet 500 mg = 1 tab(s), Oral, BID, with food, # 60 tab(s), Refills(s) 0 Start Date: 06/17/17 Status: OrderedStart: 47-64-3132zkat 500 mg by mouth every twelve hours as needed for painnaproxen 500 mg, Oral, q12hr, PRN as needed for pain Start Date: 06/13/17 Status: OrderedoxyCODONE hydrochloride 5 mg oral tablet (1 source)Opioid AgonistStart: 87-22-3000xijqgcAIIX 50 mg oral tablet (2 sources)Start: 10-19-2022 End: 91-12-3212fzar 1 tablet by mouth once dailypredniSONE 50 mg Tab 50 mg = 1 tab(s), Oral, Daily, X 5 day(s), # 5 tab(s), Refills(s) 0, Pharmacy:[facility], 170, cm, 10/19/22 16:59:00 EST, Height/Length Dosing, 66, kg, 10/19/22 16:59:00 EST, Weight Dosing Start Date: 10/19/22 Stop Date: 10/24/22 Status: OrderedStart: 63-45-2065Gxnylalk Vit-Fe Fumarate-FA ( PO) (1 source)take 1 tablet by mouth once dailyPrenatal Vit-Fe Fumarate-FA ( PO) Take 1 tablet by mouth daily 0 ActivePRENATAL VIT-FE FUMARATE-FA PO (6 sources)take 1 tablet by mouth once dailyPRENATAL VIT-FE FUMARATE-FA PO Take 1 tablet by mouth Daily Active Completed/Discontinued Medications MedicationDrug Class(es)DatesSig (Normalized)Sig (Original)clindamycin 150 mg oral capsule (2 sources)Lincosamide AntibacterialStart: 04-08-2021 End: 27-41-1510shccyqafvft (CLEOCIN) capsule 300 mgStart: 04-08-2021 End: 59-93-6577fefr 1 capsule by mouth three times dailyclindamycin (CLEOCIN) 300 MG capsule Take 1 capsule by mouth 3 times daily for 10 days 30 capsule 0 04/08/2021 04/18/2021 Activeoxaprozin 600 mg oral tablet (1 source)Nonsteroidal Anti-inflammatory DrugStart: 07-29-2017 End: 87-49-1698ycsr 1 tablet by mouth twice dailyOxaprozin 600 mg Tablet Discontinued 600 MG PO Twice daily July 29, 2017 12:00am March 01, 2018 11:22amtiZANidine 4 mg oral tablet (1 source)Central alpha-2 Adrenergic AgonistStart: 07-29-2017 End: 42-46-2721bruq 1 tablet by mouth once dailyTizanidine 4 mg tablet Discontinued 4 MG PO Daily July 29, 2017 12:00am March 01, 2018 11:22am Problems Active Problems Problem ClassificationProblemDateDocumented DateEpisodic/ChronicChronic obstructive pulmonary disease and bronchiectasis (1 source)Bronchitis; Translations: [Bronchitis, not specified as acute or chronic]Onset: 08-91-4500JgxfmetxPrtkbakvxzsjo and procreative management (7 sources)Patient encounter status; Translations: [Encounter for removal of intrauterine contraceptive device]Onset: 294177-51-5781KkeqrrybTvjnfbpqn of teeth and jaw (1 source)Infection of tooth; Translations: [Periapical abscess without sinus] EpisodicHemorrhage during ; abruptio placenta; placenta previa (10 sources)Bleeding from female genital tract during ; Translations: [Antepartum hemorrhage, unspecified, unspecified trimester]Onset: 04-30-2021 EpisodicImmunizations and screening for infectious disease (6 sources)Encounter for screening for infections with a predominantly sexual mode of transmission; Translations: [Contact with and (suspected) exposure to infections with a predominantly sexual mode of transmission]Onset: 12-30-2020 EpisodicMenstrual disorders (1 source)Missed period; Translations: [Irregular menstruation, unspecified] 96-88-1250EtkxgpaIgeid complications of (4 sources)Decreased movements, third trimester, not applicable or unspecified; Translations: [DECR MOVEMENTS 3RD TRI NA/UNS]Onset: 73-16-4867WqnrtwbgHvvug female genital disorders (1 source)Other specified noninflammatory disorders of vagina; Translations: [OTH SPEC NONINFLAMMATORY D/O VAGINA]Onset: 90-87-3130AgjuhsnaUbxxg and delivery including normal (12 sources)Encounter for supervision of normal , unspecified, third trimester; Translations: [Encounter for full-term uncomplicated delivery]Onset: 85-31-6852NspruhabYhcgo screening for suspected conditions (not mental disorders or infectious disease) (20 sources)Encounter for screening for Streptococcus B; Translations: [Encounter for screening for diabetes mellitus]Onset: 63-83-6751OxelmnuwRlzma skin disorders (1 source)Mass of soft ozbjet47-70-7507UiphgonxPtfwuev on above:right wrist Residual codes; unclassified (1 source)39 weeks gestation of ; Translations: [39 WEEKS GESTATION OF ]Onset: 29-72-6074RmecyektNkddavyf codes; unclassified (1 source)37 weeks gestation of ; Translations: [37 WEEKS GESTATION OF ]Onset: 98-41-3725MmzwtdrlXppgvcmxk-related disorders (1 source)Hcetgt81-16-8079XwykhkzPcethkk on above:Added secondary to documentation in Social History.Unclassified (1 source)CONTACT W/AND (SUSP) EXPOS COVID-19; Translations: [CONTACT W/AND (SUSP) EXPOS COVID-19]Onset: 10-22-2021 Past or Other Problems Problem ClassificationProblemDateDocumented DateEpisodic/ChronicResidual codes; unclassified (1 source)15 weeks gestation of ; Translations: [15 WEEKS GESTATION OF ]Onset: 54-36-3333PckccvswBxlyedtlb and history of mental health and substance abuse codes (1 source)Personal history of nicotine dependence; Translations: [PERSONAL HISTORY OF NICOTINE DEPEND]Onset: 80-61-8346Rbwrkqgn Results Test NameValueInterpretationReference RangeFacilityPathology Request for Lab Corpon 93-21-6617Qquvaylrk Request for Lab CorpNormalThe Caromont Health Physician GroupComment on above:Order Comment: SUBMITTING DR: CESAR WRAY Result Comment: See report. Scanned copy available in EMR. PERFORMED BY: [place] [id number] PATHOLOGIST PRECIPITATION EQUIPMENT TENDER NICK HARRINGTON M.D.Performed By: #### [facility] #### [place] [address] USAIUD Removalon 54-39-0622QptntqsnhzKarina Burgess MA 07/09/2025 2:05 PM IUD Removal [...] Pt also wanting to schedule for bilateral salpingectomy.[facility] OB TRANSVAGINALon 16-50[place] [address] Ultrasound Report Signed Patient: SOFIA OLIVARES MR#: [id number] : 1990 Acct:[id number] Age/Sex: 35 / F ADM Date: 07/09/25 Loc: US Attending Dr: Sduhir Brooks D.O. Ordering Physician: Sudhir Brooks D.O. Date of Service: 07/09/25 Procedure(s): US OB transvaginal Accession Number(s): [id number] cc: Sudhir Brooks D.O.; YIFAN MURRAY [place] [id number] Patient Name: SOFIA OLIVARES MRN: [id number] date: 1990 Sex: F Assigned Patient Location: US Current Patient Location: US Accession/Order Number: [id number] Exam Date: 07/09/2025 14:32 Report Date: 07/09/2025 [...] Jr., D.O. 07/09/2025 3:10 PM Dictation Location: [place] [address] Electronically authenticated by: [id number] Y Date: 07/09/2025 15:10 Dictated By: Ricardo Umanzor M.D. Signed By: 07/09/25 1530 DD/ 1510 TD/TT: Candy Decorator:TBHRadiology, Radiologist, - 07/09/2025 [place] [address] Ultrasound Report Signed Patient: SOFIA OLIVARES MR#: [id number] : 1990 Acct:[id number] Age/Sex: 35 / F ADM Date: 07/09/25 Loc: US Attending Dr: Sudhir Brooks D.O. Ordering Physician: Sudhir Brooks D.O. Date of Service: 07/09/25 Procedure(s): US OB transvaginal Accession Number(s): [id number] cc: Sudhir Brooks D.O.; YIFAN MURRAY [address] [address] Patient Name: SOFIA OLIVARES MRN: [employer]:[id number] date: 1990 Sex: F Assigned Patient Location: Current Patient Location: US Accession/Order Number: [id number] Exam Date: 07/09/2025 14:32 Report Date: 07/09/2025 [...] ultrasound is also recommended. Impression dictated by: Ricarod Umanzor Jr., Jey 07/09/2025 3:10 PM Dictation Location: [place] [address] Electronically authenticated by: [id number] Y Date: 07/09/2025 15:10 Dictated By: Ricardo Umanzor M.D. Signed By: 07/09/25 1530 DD/ 1510 TD/TT: Candy Decorator: KRISTAL HealthcareRadiology Study observation (narrative)NOM HealthcareUS OB TRANSVAGINALOrdered By: Radiologist Radiology on 90-04-2329YKDA Healthcare Work Phone: [facility] PREG QUANT HCGon 06-98-1995RUA HFODVSXMGWPY88 mIU/mLNOMS HealthcareComment on above:5-50 0.2-1 WEEK 50-500 1-2 WEEKS 100-5,000 2-3 WEEKS 500-10,000 3-4 WEEKS 1,000-50,000 4-5 WEEKS 10,000-100,000 5-6 WEEKS 15,000-200,000 6-8 WEEKS 10,000-100,000 2-3 MONTHS CLINISYNCNOID HealthcareED Note-Physicianon 85-62-8211DM Note-PhysicianBasic Information Time Seen: Chucho Kwon DO 10/19/2022 17:44 Chief Complaint cough x 1 month with congestion. History of Present Illness 32-year-old female reports the emergency department with a chief complaint of a cough that has beengoing on for a month. Reports that she also has sinus congestion. Reports he got better for 2 to 3 days over the last month, but has been a lingering cough for her. Reports that he tried bejh-nxp-urlbrtx medications, with no relief of her symptoms. States little bit of a sore throat due to the cough. Denies any fevers or chills. Denies any body aches. Denies any history of asthma. Reports historyof smoking. Reports that her daughter has also [...] and Complexity of Problems Differential Diagnosis: [] [facility] Data External documents reviewed: [] [...] getting better. Reports that she has tried yadb-jzd-xkdfvpr medications without much relief of her symptoms. Reports that she is still coughing. Denies any recent antibiotic use. Reports that she has tried qdpo-dmv-djjtgdq medication without relief. Denies any fevers or chills. Denies any body aches or recent sick contacts. Physical exam of the patientis relatively benign, with very minimal wheezing heard on lung sounds examination. Due to the patient's clearance, we did do a COVID swab as well as a chest x-ray. COVID was negative as well as chestx-ray was also negative. Based on the patient's symptoms of believe that she may be having a bacterial bronchitis, so we will start patient on antibiotics as well as a prednisone dose. See reason forantibiotics below. Patient was agreeable with this. Discussed that she does take antibiotics and medication as prescribed. Continue take choa-kfe-cnrsyzl medications. Discussed return precautions. Follow-up with your primary care provider in 3 to 5 days. If symptoms worsen, do not improve, or new symptoms arise please report back to emergency department for further evaluation. The patient was understanding and agreeable to plan moving forward. []The patient has acute bronchitis/bronchiolitis and antibiotics were not prescribed or dispensed today.[SATISFIES MIPS PERFORMANCE] [x] The patient has acute bronchitis/bronchiolitis. Antibiotics were prescribed or dispensed because the [...] an inpatient admission. []The patient has acute bronchitis/bronchiolitis and antibiotics were prescribed or dispensed today. [DOES NOT SATISFY MIPS PERFORMANCE] Shared decision making: [] Code status: [] Assessment/Plan Bronchitis (J40: Bronchitis, not specified as acute or chronic) Orders: azithromycin, = 1 packet(s), Oral, As Directed, as directed on package labeling, X 5 day(s), # 6 tab(s), Refills(s) 0, Pharmacy: [facility], 487 (more content not included)...UC Medical CenterComment on above:Result Comment: Electronically Signed By: Tony Hamlin PA-C\.br\Date and Time Signed: 10/19/2320:25 EST\.br\Electronically Co-Signed By: Chucho Kwon DO\.br\Date and Time Co-Signed: 10/26/22 07:09 ESTCoding Summary.on 10-22-2022 Coding Summary. CD:[id number] VC2HUihY3BlzpBy [file] cHNl (more content not included)...[facility] Medical CenterXR Chest 2 Viewson 90-52-1296LP Chest 2 ViewsExam Date/Time: 10/19/2022 18:12 EST Reason for Exam: [...] Milton Ochoa M.D. Transcribed by: LACY Technologist: [facility] HospitalConsent for Treatmenton 84-54-9291Gvesxzd for Treatment [id number]:127UC Medical CenterDischarge Instructionson 46-33-0226Hymbrwzzf Instructions [id number]:127NormalFisher [facility] Clinical Summaryon 96-03-9421OD Clinical Summary [place] [id number] ED Clinical Summary Person Information Name: SOFIA ARANGO/[place] Age: 32 Years : 1990 Sex: Female Language: Moldovan PCP: Joaquim Osuna DO Marital Status: Single Phone: [phone] Visit Id: Visit Reason: Sinus Pain/Congestion; Cough; [...] 10/19/2022 18:40:12 10/19/2022 18:40:12 10/19/2022 18:40:12 ADDRESS: [address] [place] [phone] PHYS DOC NOTES: MEDICAL INFORMATION: Prescriptions Given: New Medications [facility], [address] [place], [place] [phone], [phone] azithromycin (azithromycin 250 mg Tab 5-day Dose Pack (Z-Abe)) 1 Packets By Mouth As Directed for 5Days. as directed on package labeling. Refills: 0. predniSONE (predniSONE 50 mg Tab) 1 Tablets By Mouth every day for 5 Days. Refills: 0. Medications to Continue with No Changes Other Medications acetaminophen-hydrocodone ([place] 325 mg-5 mg oral tablet) 1-2 tab(s) Oral q4hr; as needed for pain.Refills: 0. docusate (Colace 100 mg Cap) 1 Capsules By Mouth 2 times a day as needed for constipation. Refills:0. naproxen 500 Milligram By Mouth every 12 hours as needed as needed for pain. naproxen (naproxen 500 mg oral enteric coated tablet) 1 Tablets By Mouth 2 times a day. with food. Refills: 0. PATIENT EDUCATION INFORMATION: Instructions: Acute Bronchitis, Adult; Upper Respiratory Infection, Adult, Nhsn-vr-Dcmc Follow up: With: Address: When: Joaquim Link [address], [address] [place] [address] [employer] (1) In 3 days 10/22/2022 Comments: Follow-up with your primary care provider in 3 to 5 days. If symptoms worsen, do not improve, or new symptoms arise please report back to emergency department for further evaluation. DIAGNOSIS: BronchitisNormalFisher Lyle Medical CenterED Patient Education Noteon 44-80-0014QL Patient Education NoteInfectious Disease Upper Respiratory Infection, Adult An upper [...] your fever is gone, or until your doctorsays you may return to work or school. ? You should stay home until you cannot spread the infection anymore (you are not contagious). ? Your doctor may have you wear a face mask so you have less risk of spreading the infection. Relieving symptoms ? Gargle with a salt-water mixture 3?4 times a day or as needed. To make a salt- water mixture, completely dissolve ??1 tsp of salt in 1 cup of warm water. ? Use a cool-mist humidifier to add moisture to the air. This can help you breathe more easily. Eating and drinking ? Drink enough fluid to keep your pee (urine) pale yellow. ? Eat soups and other clear broths. General instructions ? Take kqar-qqx-zbvhqxp and prescription medicines only as told by [...] not have soap and water, use hand safety aide. ? Avoid touching your mouth, face, eyes, [...] get better within 7?10 days. ? Take vhfz-tzz-mdpswnc and prescription medicines only as told by your doctor. This information is not intended to replace advice given to you by your health care provider. Make sure you discuss any questions you have with your health care provider. Document Released: 03/21/2009 Document Revised: 10/11/2019 Document Reviewed: 05/26/2018 [employer] Patient Education ? 2020 [employer] Pulmonary Medicine Acute Bronchitis, Adult Acute bronchitis is sudden (acute) swelling of the air tubes (bronchi) in the lungs. Acute bronchitis causes these tubes to fill with mucus, which can make it hard to breathe. It can also cause coughing or wheezing. In adults, acute bronchitis usually goes away within 2 weeks. A cough caused by bronchitis may lastup to 3 weeks. Smoking, allergies, and asthma [...] breath. ? A fe (more content not included)...[facility] Patient Summaryon 58-46-1828KL Patient Summary [address] [address] Patient Discharge Instructions Person Information Name: SOFIA ARANGO Age: 32 Years Arrival Date: 10/19/2022 16:52:07 Discharge Diagnosis: Bronchitis Primary Care Physician: Joaquim Osuna DO Provider Information Primary Provider: Chucho Kwon DO Advanced Manager Hris:None The exam and treatment you received in the Emergency Department were for an urgent problem and are not intended as complete care. It is important that you follow up with a doctor, nurse practitioner,or physician?s printer assistant for ongoing care. If your symptoms become worse or you do not improve as expected and you are unable to reach your usual health care provider, you should return to the Emergency Department. We are available 24 hours a day. SOFIA ARANGO has been given the following list of patient education materials, prescriptions and follow-up instructions: Follow-up Instructions: With: Address: When: Joaquim Osuna [address] [place] [address] Business (1) In 3 days 10/22/2022 Comments: [...] Acute Bronchitis, Adult; Upper Respiratory Infection, Adult, Nhhb-nh-Iqew A MESSAGE TO ALL PATIENTS REGARDING OPIOIDS PRESCRIPTION OPIOIDS: WHAT YOU NEED TO KNOW Prescription opioids can be used to help relieve dpftkyji-bk-dijwes pain and are often prescribed following a [...] and have fewer risks and side effects. Optionsmay include: ? Pain relievers such as acetaminophen, [...] unused prescription opioids: Find your community drug take- back program or [employer] mail-back program, or flush them down the toilet, following guidance from the Food and Drug Administration (www.fda.gov/Drugs/ResourcesForYou). ? Visit www.cdc.gov/drugoverdose to learn about the risk (more content not included)...UC Medical CenterMICRO OTHER TESTSOrdered By: Tamar Banks on 09-95-7290Vcqvd COV Int NEG CtlPass (10/19/22 5:12 PM)Normal[facility] [place] SeroRapid COV Int POS CtlPass (10/19/22 5:12 PM)Normal[facility] [place] SeroSARS-CoV+SARS-CoV-2 (COVID-19) Ag IA.rapid Ql (Resp)Not Detected (10/19/22 5:12 PM)NormalNot DetectedMERCY H[facility] [place] SeroRapid COVID Antigen ([facility] [place])on 84-19-9864Kbebi COV Int NEG CtlPassUC Medical CenterComment on above:Performed By: #### [id number] #### [facility] [address], [place] [address]Eddxk COV Int POS CtlPassUC Medical Center Comment on above:Performed By: #### [id number] #### [facility] [address], [place] [address]OEAA-VoL+SARS-CoV-2 (COVID-19) Ag IA.rapid Ql (Resp)Not detectedNormalNot DetectedFisher Mt. Washington Pediatric HospitalComment on above:Result Comment: The [employer] Veritor? System for Rapid Detection of SARS-CoV-2 is a chromatographic digital immunoassay intended for the direct and qualitative detection of SARS-CoV-2 nucleocapsid antigensin nasal swabs from individuals who are suspected [...] of proteins from SARS-CoV-2, not for any otherviruses or pathogens; and, in the [place], this test is only authorized for the duration of the declaration that circumstances exist justifying the authorization of emergency use of in vitro diagnostics for detection and/or diagnosis of the virus that causes COVID-19 under Section 564(b)(1) of the Act,21 U.S.C. ? 360bbb-3(b)(1), unless the authorization is terminated or revoked sooner.Performed By: #### [id number] #### [facility] [address], [place] [address]SCAXJMKH TO INTENSIVE CARE UNIT FOR CONDITION OF INTEREST:FIND:PT:NONOhioHealth Grant Medical CenterComment on above:Performed By: #### [id number] #### [facility] [address] [place], [place] [address]EMPLOYED IN A HEALTHCARE SETTING:FIND:PT:NONOhioHealth Grant Medical CenterComment on above:Performed By: #### [id number] #### [facility] [address] [place], [place] [address]FIRST TEST FOR CONDITION OF INTEREST:FIND:PT:NONOhioHealth Grant Medical CenterComment on above:Performed By: #### [id number] #### [facility] [address] [place], [place] [address]HAS SYMPTOMS RELATED TO CONDITION OF INTEREST:FIND:PT:YESNormal [facility] HospitalComment on above:Performed By: #### [id number] #### [facility] [address] [place], [place] [address]HOSPITALIZED FOR CONDITION OF INTEREST:FIND:PT:[facility] MiamisburgComment on above:Performed By: #### [id number] #### [facility] [address] [place], [place] [address]PREGNANCY STATUS:FIND:PT:[facility] Comment on above:Performed By: #### [id number] #### [facility] [address] [place], [place] [address]RESIDES IN A CONGREGATE CARE SETTING:FIND:PT:[facility] MiamisburgComment on above:Performed By: #### [id number] #### [facility] [address] [place] [id number] AUTO DIFFon 29-92-2733KYRB #0.0 103/ulNormal0.0-0.1[facility] Butler HospitalComment on above:Performed By: #### CBC #### [facility] [address] [place] [address] [address] Yilan ChangBasophils/100 WBC (Bld)0.4 %Normal0.2-2.0[facility] Comment on above:Performed By: #### CBC #### [facility] [address] [place] [address] Dr. Marianne Choudhary #0.1 103/ulNormal0.0-0.7The [facility] Medical CenterComment on above: Performed By: #### CBC #### [facility] [address] [place] [address] Dr. Marianne Rossosinophils/100 WBC (Bld)1.1 %Normal0.9-7.0The [facility] Comment on above:Performed By: #### CBC #### [facility] [address] [place] [address] Dr. Marianne Rossrythrocyte distribution width (RBC) [Ratio]13.2 %Vedlry26.0-15.0 [facility] Butler HospitalComment on above:Performed By: #### CBC #### [facility] [address] [place] [address] Dr. Marianne MojicaHematocrit (Bld) [Volume fraction]33.5 %Critically low36.0-48.0 [facility] HospitalComment on above:Performed By: #### CBC #### [facility] [address] [place] [address] Dr. Marianne MojicaHemoglobin (Bld) [Mass/Vol]11.1 g/dLCritically low12.0-16.0The [facility] CenterComment on above:Performed By: #### CBC #### [facility] [address] [place] [address] Dr. Marianne Hernandez #0.05 10e3/ulCritically high0.00-0.03The [facility] Comment on above:Performed By: #### CBC #### [facility] [address] [place] [address] Dr. Marianne Hernandez %0.5 %Normal0.0-0.5The [facility] CenterComment on above: Performed By: #### CBC #### [facility] [address] [place] [address] Dr. Marianne Matthews #2.8 103/ulNormal1.2-3.8The [facility] CenterComment on above:Performed By: #### CBC #### [facility] [address] [place] [address] Dr. Marianne Olguinmphocytes/100 WBC (Bld)29.9 %Xorbdz62.5-60.0The [facility] CenterComment on above:Performed By: #### CBC #### [facility] [address] [place] [address] Dr. Marianne Vasquez DIFF REQNONormalThe [facility] CenterComment on above: Performed By: #### CBC #### [facility] [address] [place] [address] Dr. Marianne Peacock (RBC) [Entitic mass]31.6 hsXtslne77.7-34.0The [facility] CenterComment on above:Performed By: #### CBC #### [facility] [address] [place] [address] Dr. Marianne Peacock (RBC) [Mass/Vol]33.1 g/uJWmzwxd23.9-35.2The [facility] CenterComment on above:Performed By: #### CBC #### [facility] [address] [place] [address] Dr. Marianne Peacock (RBC) [Entitic vol]95.4 gOZdygvv29.0-99.0The [facility] CenterComment on above:Performed By: #### CBC #### [facility] [address] [place] [address] Dr. Marianne Tubbs #0.7 103/ulNormal0.3-0.8The [facility] CenterComment on above:Performed By: #### CBC #### [facility] [address] [place] [address] Dr. Marianne Lyonsocytes/100 WBC (Bld)7.3 %Normal1.7-12.0The [facility] Comment on above:Performed By: #### CBC #### [facility] [address] [place] [address] Dr. Marianne SmythUT #5.6 103/ulNormal1.4-6.5The [facility] CenterComment on above:Performed By: #### CBC #### [facility] [address] [place] [address] Dr. Marianne Smythutrophils/100 WBC (Bld)60.8 %Doyxnb26.0-75.0The [facility] CenterComment on above:Performed By: #### CBC #### [facility] [address] [place] [address] Dr. Marianne MojicaPlatelet mean volume (Bld) [Entitic vol]9.8 fLNormal9.5-13.5The [facility] CenterComment on above:Performed By: #### CBC #### [facility] [address] [place] [address] Dr. Marianne MojicaPLT188 103/qpUszwhf869-119Uzb [facility] CenterComment on above: Performed By: #### CBC #### [facility] [address] [place] [address] Dr. Marianne MojicaRBC3.51 106/ulCritically low4.20-5.40The [facility] CenterComment on above:Performed By: #### CBC #### [facility] [address] [place] [address] Dr. Marianne MojicaWBC9.2 103/ulNormal4.0-11.0The [facility] CenterComment on above: Performed By: #### CBC #### [facility] [address] [place] [address] Dr. Marianne GrafC AUTO DIFFon [id number] #0.0 103/ulNormal0.0-0.1The [facility] CenterComment on above:Performed By: #### CBC #### [facility] [address] [place] [address] Dr. Marianne MojicaBasophils/100 WBC (Bld)0.2 %Normal0.2-2.0The [facility] Comment on above:Performed By: #### CBC #### [facility] [address] [address] [address] Marianne Choudhary #0.1 103/ulNormal0.0-0.7The [facility] CenterComment on above: Performed By: #### CBC #### [facility] [address] [address] [address] Marianne Rossosinophils/100 WBC (Bld)0.6 %Critically low0.9-7.0The [facility] CenterComment on above:Performed By: #### CBC #### [facility] [address] [address] [address] Marianne Rossrythrocyte distribution width (RBC) [Ratio]13.2 %Xhpsxu58.0-15.0 The [facility] CenterComment on above:Performed By: #### CBC #### [facility] [address] [place] [address] Dr. Marianne MojicaHematocrit (Bld) [Volume fraction]37.2 %Xbjhbp60.0-48.0The [facility] CenterComment on above:Performed By: #### CBC #### [facility] [address] [place] [address] Dr. Marianne MojicaHemoglobin (Bld) [Mass/Vol]12.2 g/uOPfoxzp10.0-16.0The [facility] CenterComment on above:Performed By: #### CBC #### [facility] [address] [address] [address] Marianne Hernandez #0.04 10e3/ulCritically high0.00-0.03The [facility] Comment on above:Performed By: #### CBC #### [facility] [address] [place] [address] Dr. Marianne Hernandez %0.4 %Normal0.0-0.5The [facility] on above: Performed By: #### CBC #### [facility] [address] [place] [address] Dr. Marianen Matthews #2.6 103/ulNormal1.2-3.8The [facility] CenterComment on above:Performed By: #### CBC #### [facility] [address] [address] [address] Marianne Olguinmphocytes/100 WBC (Bld)27.0 %Gxtrqg55.5-60.0The [facility] CenterComment on above:Performed By: #### CBC #### [facility] [address] [place] [address] Dr. Marianne Vasquez DIFF REQNONormalThe [facility] CenterComment on above: Performed By: #### CBC #### [facility] [address] [address] [address] Marianne Peacock (RBC) [Entitic mass]31.1 ygNnbkoi12.7-34.0The [facility] CenterComment on above:Performed By: #### CBC #### [facility] [address] [place] [address] Dr. Marianne Peacock (RBC) [Mass/Vol]32.8 g/oKDcthal36.9-35.2The [facility] on above:Performed By: #### CBC #### [facility] [address] [place] [address] Dr. Marianne Peacock (RBC) [Entitic vol]94.9 hHCephpb36.0-99.0The [facility] on above:Performed By: #### CBC #### [facility] [address] [place] [address] Dr. Marianne Tubbs #0.8 103/ulNormal0.3-0.8The [facility] on above:Performed By: #### CBC #### [facility] [address] [place] [address] Dr. Marianne Lyonsocytes/100 WBC (Bld)7.8 %Normal1.7-12.0The [facility] on above:Performed By: #### CBC #### [facility] [address] [place] [address] Dr. Marianne Dacosta #6.2 103/ulNormal1.4-6.5The [facility]anna HospitalComment on above:Performed By: #### CBC #### [facility] [address] [address] [address] Marianne Smythutrophils/100 WBC (Bld)64.0 %Bkekgw67.0-75.0The [facility] CenterComment on above:Performed By: #### CBC #### [facility] [address] [place] [address] Dr. Marianne MojicaPlatelet mean volume (Bld) [Entitic vol]10.5 fLNormal9.5-13.5The [facility] CenterComment on above:Performed By: #### CBC #### [facility] [address] [place] [address] Dr. Marianne MojicaPLT210 103/ewNplszz427-970Ddz [facility] CenterComment on above: Performed By: #### CBC #### [facility] [address] [place] [address] Dr. Marianne MojicaRBC3.92 106/ulCritically low4.20-5.40The [facility] CenterComment on above:Performed By: #### CBC #### [facility] [address] [place] [address] Dr. Marianne MojicaWBC9.7 103/ulNormal4.0-11.0The [facility] on above: Performed By: #### CBC #### [facility] [address] [place] [address] Dr. Marianne MojicaCovid-19 PCR (CVDTB)on 31-20-6812LMJF-CoV-2 (COVID-19) RNA VIRA+probe Ql (Unsp spec)Not detectedNormalNOT DETECTEDThe [facility] Comment on above:Result Comment: When diagnostic testing is negative, the [...] for this test is supported by the [place] of Health and Human Service's declaration that circumstances exist to justify the emergency use of in vitro diagnostics for the detection and/or diagnosis of the virus that causes COVID-19. This EUA will remain in effect for the duration of the COVID-19 declaration justifying emergency of IVDs, unless it is terminated or revoked by the FDA (after which the test may no longer be used).Performed By: #### RPRQ #### [facility] [address] [place] [address] Carlos KarenDRUG SCREEN RAPID (URINE)on [id number]ICSUgq [facility] HospitalComment on above:Performed By: #### RPRQ #### [facility] [address] [place] [address] Carlos KarenBARNegativeNormalNEGATIVETrihealth Bethesda Butler HospitalComment on above: Performed By: #### RPRQ #### [facility] [address] [place] [address] Carlos KarenBUPNegativeNormalNEGATIVETrihealth Bethesda Butler HospitalComment on above: Performed By: #### RPRQ #### [facility] [address] [place] [address] Carlos KarenBZONegativeNormalNEGATIVETrihealth Bethesda Butler HospitalComment on above: Performed By: #### RPRQ #### [facility] [address] [place] [address] Carlos KarenCOCNegativeNormalNEGATIVETrihealth Bethesda Butler HospitalComment on above: Performed By: #### RPRQ #### [facility] [address] [place] [address] Carlos KarenCUT-OFFSSEE BELOWBarnes-Jewish Saint Peters HospitalalThe [facility] CenterComment on above:Result Comment: AMP (Amphetamine): 500ng/mL, BAR (Barbituates): 200 ng/mL, BZO (Benzodiazepines): 150 ng/mL, BUP (Buprenorphine): 10 ng/mL, BREE (Cocaine): 150 ng/mL, mAMP (Methamphetamine): 500 ng/mL, MTD (Methadone): 200 ng/mL, OPI (Opiates): 100 ng/mL, OXY (Oxycodone): 100 ng/mL, PCP (Phencyclidine): 25 ng/mL, PPX (Propoxyphene): 300 ng/mL, THC (Cannabinoids): 50 ng/mL, TCA (Trycyclic Antidepressants): 300 ng/mLPerformed By: #### RPRQ #### [facility] [address] [place] [address] Carlos KarenDRUG CUT HEADERDRUG CLASS TEST SYSTEM CUT-OFF CONCENTRATIONS ARE FOLLOWS:NormalTrihealth Bethesda Butler HospitalComment on above:Performed By: #### RPRQ #### [facility] [address] [place] [address] Carlos KarenmAMPNegativeNormalNEGATIVETrihealth Bethesda Butler HospitalComment on above: Performed By: #### RPRQ #### [facility] [address] [place] [address] Carlos KarenMTDNegativeNormalNEGATIVETrihealth Bethesda Butler HospitalComment on above: Performed By: #### RPRQ #### [facility] [address] [place] [address] Carlos KarenOPINegativeNormalNEGATIVETrihealth Bethesda Butler HospitalComment on above: Performed By: #### RPRQ #### [facility] [address] [place] [address] Carlos KarenOXYNegativeNormalNEGATIVETrihealth Bethesda Butler HospitalComment on above: Performed By: #### RPRQ #### [facility] [address] [place] [address] Carlos KarenPCPNegativeNormalNEGATIVECenterville HospitalComment on above: Performed By: #### RPRQ #### [facility] [address] [place] [address] Carlos KarenPPXNegativeNormalNEGATIVECenterville HospitalComment on above: Performed By: #### RPRQ #### [facility] [address] [place] [address] Carlos KarenTCANegativeNormalNEGATIVEThe Jameson HospitalComment on above: Performed By: #### RPRQ #### [facility] [address] [place] [address] Carlos WickenTHCNegativeNormalNEGATIVETrihealth Bethesda Butler HospitalComment on above: Performed By: #### RPRQ #### [facility] [address] [place] [address] Carlos WickenTYPE AND SCREENon [id number] AND SCREENNegativeNoKettering Health Greene MemorialComment on above:Performed By: #### RPRQ #### [facility] [address] [place] [address] Carlos WickenUS PREG BIOPHY W NON STRESSon [id number] PREG BIOPHY W NON STRESS EXAMINATION: US [...] Electronically authenticated by: AYDE MIN Date: 2021-10-07 13:52[facility] HospitalCHLAMYDIA/GONOCOCCUS VIRA (SWAB/URINE/PAPon [id number] trachomatis, NAANegativeNormalNegativeTrihealth Bethesda Butler HospitalComment on above: Performed By: #### CT/NGNA #### [facility] [address] [place] [address] Dr. Marianne MojicaNeisseria gonorrhoeae, NAANegativeNormalNegativeTrihealth Bethesda Butler HospitalComment on above:Performed By: #### CT/NGNA #### [facility] [address] [place] [address] Dr. Marianne MojicaVAGINITIS/VAGINOSIS DNA PROBEon 67-35-9421Pnjlvqu speciesNegative NormalNegativeTrihealth Bethesda Butler HospitalComment on above:Performed By: #### RUBIGG #### [facility] [address] [address] Carlos KarenGardnerella vaginalisNegativeNormalNegativeTrihealth [facility]hes[facility] Hospital Comment on above:Performed By: #### RUBIGG #### [facility] [address] [address] Carlos KarenTrichomonas vaginalisNegativeNormalNegativeTrihealth Bethesda Butler Hospital Comment on above:Performed By: #### RUBIGG #### [facility] [address] [address] Carlos KarenGROUP B STREP CULTUREon 10-02-2021. agalactiae Ag Ql (Unsp spec) Culture Observations: NEGATIVE FOR GROUP B STREPTOCOCCUS.NormalThe [facility] CenterComment on above: Performed By: #### GBSCX #### [facility] [address] [place] [address] Dr. Marianne Figueroa PREG PLACENTAon [id number] PREG PLACENTAEXAMINATION: US PREG PLACENTA HISTORY: Placenta previa without hemorrhage COMPARISON: Ultrasound anatomy 06/04/2021 FINDINGS: PLACENTA: Posterior with lower margin 2.5 cm from internal os. Several small anechoic areas within placenta favoring venous lakes. CERVIX LENGTH: 4.6 cm in length; closed. HEART RATE: 126 bpm OTHER: None. IMPRESSION: 1. Posterior placenta which is no longer low-lying. Electronically authenticated by: AYDE MIN Date: 2021-07-29 12:05[facility] HospitalGLUCOSE - 1HRon [id number] [Mass/Vol]71 mg/dLCritically jjv00-978Utt [facility] CenterComment on above:Performed By: #### RUBIGG #### [facility] [address] [place] [address] Carlos KarenHEMOGRAM AND PLATELon 20-27-6426Kdbcxwmesj (Bld) [Volume fraction] 36.2 %Jmsodv19.0-48.0The [facility] CenterComment on above:Performed By: #### RUBIGG #### [facility] [address] [address] Carlos KarenHemoglobin (Bld) [Mass/Vol]11.8 g/dLCritically low12.0-16.0[facility] HospitalComment on above:Performed By: #### FLYG #### [facility] [address] [place] [address] Carlos HullTONSIL H[facility]ITAL (RBC) [Entitic mass]31.4 bxIcvcdo76.7-34.0[facility] Comment on above:Performed By: #### FLYG #### [facility] [address] [place] [address] Carlos HullHARLEM [facility] (RBC) [Mass/Vol]32.6 g/aLHngxrw24.9-35.2The [facility] Comment on above:Performed By: #### FLYG #### [facility] [address] [place] [address] Carlos DellaHILLCREST [facility] (RBC) [Entitic vol]96.3 mXLjjgbr97.0-99.0The [facility] Comment on above:Performed By: #### FLYG #### [facility] [address] [place] [address] Carlos WickIhtliUQK145 103/dvNqfoda695-878Cgg [facility] CenterComment on above: Performed By: #### FLYG #### [facility] [address] [place] [address] Carlos WickenRBC3.76 106/ulCritically low4.20-5.40The [facility] CenterComment on above:Performed By: #### FLYG #### [facility] [address] [place] [address] Carlos WickenWBC9.1 103/ulNormal4.0-11.0[facility] HospitalComment on above: Performed By: #### FLYG #### [facility] [address] [place] [address] Carlos HullUS PREG ANATOMY SINGLEon [id number] PREG ANATOMY SINGLE EXAMINATION: US PREG ANATOMY SINGLE HISTORY: screening COMPARISON: No relevant [...] 59th percentile by ultrasound and expected FL/AC: 0.807956 FL/BPD: 0.167745 HC/AC: 1.932334 GESTATIONAL AGE: Age by EDC: 20 weeks, 0 days NELA by EDC: 10/22/2021 Age by current US: 20 weeks, 0 days NELA by current US: 10/22/2021 IMPRESSION: 1. Single live intrauterine with growth detailed above. 2. Low-lying fundal/posterior placenta. Electronically authenticated by: AYDE MIN Date: 2021-06-04 12:07[facility] HospitalAF MATERNAL FOR SPINA BIFIDAon [id number] MoM0.95[facility] HospitalComment on above:Performed By: #### AFPMAT #### [facility] [address] [address] Carlos KarenAFP Value37.7 ng/mLNKettering Health Greene MemorialComment on above: Performed By: #### AFPMAT #### [facility] [address] [address] Carlos KarenAFP, Serum for Spina BifidaReportMercy Health St. Elizabeth Young[facility] HospitalComment on above:Performed By: #### AFPMAT #### [facility] [address] [address] Carlos KarenCommentComRegency Hospital Company on above:Result Comment: Ivy Lincoln, Ph.D., [facility] Director . References: Available Upon Request. . Multiples Of Median Cutoffs For AFP Elevations Sommer 2.5 Black 2.8 IDD 2.0 Twins 4.5 Abbreviation Definitions IDD - Insulin Dep Diabetes OSBR - Open Spina Bifida Risk . For further inquiries contact [employer] at [phone].Performed By: #### AFPMAT #### [facility] [address] [place] [address] Carlos KarenGest Age Collection Date17.[address] [facility] HospitalComcorewell health gerber hospital on above:Performed By: #### AFPMAT #### [facility] [address] [place] [address] Carlos KarenGestat, Age Based onUltrasBarberton Citizens HospitalComcorewell health gerber hospital on above:Result Comment: 11:0 on 04/02/2021 Recalculations are not recommended when gestational dating by LMP and ultrasound are within 10 days.Performed By: #### AFPMAT #### [facility] [address] [place] [address] Carlos KarenInsulin Dep DiabetesNoNormalTrihealth Bethesda Butler HospitalComcorewell health gerber hospital on above: Performed By: #### AFPMAT #### [facility] [address] [place] [address] Carlos KarenInterpretationSalem City HospitalComcorewell health gerber hospital on above: Result Comment: Interpretation: Screen Negative . This result is screen [...] Customer Services to discuss available options. The [employer] recommends amniocentesis be offered to women age 35 and older.Performed By: #### AFPMAT #### [facility] [address] [place] [address] Carlos KarenMaternal Age at EDD33.7 yrNoKettering Health Greene MemorialComment on above:Performed By: #### AFPMAT #### [facility] [address] [address] Carlos KarenMultiple GestationNoNKettering Health Greene MemorialComment on above: Performed By: #### AFPMAT #### [facility] [address] [address] Carlos KarenOSBR Risk 1 [id number] Health Greene MemorialComment on above: Performed By: #### AFPMAT #### [facility] [address] [address] Carlos KarenPDF.NormalTrihealth Bethesda Butler HospitalComment on above:Performed By: #### AFPMAT #### [facility] [address] [place] [address] Carlos KarenRaceCaucasianNKettering Health Greene MemorialComment on above:Performed By: #### AFPMAT #### [facility] [address] [address] Carlos KarenTest Results:NegativeMercy Health St. Elizabeth Youngstown HospitalComment on above: Performed By: #### AFPMAT #### [facility] [address] [place] [address] Carlos KarenCult,Urineon [id number],UrineSpecimen Description .Random Urine Special Requests NOT REPORTED Culture NO GROWTH Report Status FINAL 05/01/2021NoKettering Health – Soin Medical CenterComment on above: Performed By: #### URC #### [facility] [employer] [address] [place] [address] School Athletic Director: Sekou Fraser MD [facility] [address] [place] [address] School Athletic Director: Campos Chandra MDUS PREG PLACENTAon [id number] PREG PLACENTAEXAM: US PREG PLACENTA HISTORY: Abnormal vaginal bleeding. [...] Electronically authenticated by: YURIY WISE Date: 2021-04-30 23:35[facility] HospitalABO/RHOrdered By: Venecia Patterson on [id number]/RhPositiveShelby Memorial HospitalPostling Work Phone: [facility] HospitalPostling Work Phone: aBO/Rh(D)on [id number]/Rh(D)PositiveNoKettering Health – Soin Medical CenterComment on above:Performed By: #### ABRH #### [facility] [address] [place] [address] School Athletic Director: Campos Chandra [facility] Auto DifferentialOrdered By: Venecia Patterson on [id number] Eos #0.00S[facility] Hospitaliiko Phone: absolute Immature GranulocyteNOT REPORTEDShelby Memorial Hospitaliiko Phone: absolute Lymph #2.70[facility] Hospitaliiko Phone: absolute Ellis #0.50[facility] Hospitaliiko Phone: basophils (Bld) [#/Vol]0.00 10*3/uLShelby Memorial Hospitaliiko Phone: basophils/100 WBC (Bld)0 %0 - 2 %[employer] Phone: differential TypeYESMholzer hospital [employer] Phone: eosinophils/100 WBC (Bld)0 %0 - 5 %[employer] Phone: Hematocrit (Bld) [Volume fraction]36.7 %36 - 46 %[employer] Phone: Hemoglobin.gastrointestinal spec 1 Ql (Stl)12.5 g/dL 12.0 - 16.0 g/dLShelby Memorial Hospitaliiko Phone: Immature GranulocytesNOT REPORTED0 %[employer] Phone: lymphocytes/100 WBC (Bld)30 %15 - 40 %[employer] Phone: MCH (RBC) [Entitic mass]30.6 pg26 - 34 pgShelby Memorial Hospitaliiko Phone: MCHC (RBC) [Mass/Vol]34.2 g/dL31 - 37 g/dLShelby Memorial Hospitaliiko Phone: MCV (RBC) [Entitic vol]89.7 fL80 - 100 [employer] Phone: Monocytes/100 WBC (Bld)5 %4 - 8 %[employer] Phone: NRBC AutomatedNOT REPORTEDper 100 WBCNerdies Phone: platelet distribution width (Bld) [Ratio]12.8 %12.1 - 15.2 %[employer] Phone: platelet EstimateNOT REPORTEDShelby Memorial Hospitaliiko Phone: platelet mean volume (Bld) [Entitic vol]NOT REPORTED 6.0 - 12.0 fLNerdies Phone: platelets (Bld) [#/Vol]271 10*3/uLNerdies Phone: RBC (Bld) [#/Vol]4.09 10*6/uL4.0 - 5.2 m/[employer] Phone: RBC (Bld) [#/Vol]NOT REPORTEDShelby Memorial Hospitaliiko Phone: Segmented neutrophils/100 WBC (Bld)65 %47 - 75 %[facility] Phone: segs Absolute5.70[facility] Phone: WBC (Bld) [#/Vol]8.9 10*3/uLGalion Community Hospital [employer] Phone: WBC (Bld) [#/Vol]NOT REPORTEDRiverview Health Institute [employer] Phone: [facility] Work Phone: cBC with Diffon [id number]. Basophil0.00 k/uLNormal 0.0-0.2MVeterans Health AdministrationComment on above:Performed By: #### MG, CMPX, CDP #### [facility] [address] [place] [address] School Athletic Director: Eboni Wong.Neutrophil (Seg)5.70 k/uLNormal2.5-7.0[facility] Medical CenterComment on above:Performed By: #### MG, CMPX, CDP #### [facility] [address] [place] [address] School Athletic Director: Nilda Wong Diff PerformedYESNoKettering Health – Soin Medical Center Comment on above:Performed By: #### MG, CMPX, CDP #### [facility] [address] [place] [address] School Athletic Director: Campos Chandra MDBasophils/100 WBC (Bld)0 %Normal0-2MVeterans Health AdministrationComment on above:Performed By: #### MG, CMPX, CDP #### [facility] [address] [place] [address] School Athletic Director: Campos Chandra MDEosinophils (Bld) [#/Vol]0.00 10*3/uLNormal0.0-0.4 [facility] Medical CenterComment on above:Performed By: #### MG, CMPX, CDP #### [facility] [address] [place] [address] School Athletic Director: Campos Chandra MDEosinophils/100 WBC (Bld)0 %Normal0-5[facility] Portage Medical CenterComment on above:Performed By: #### MG, CMPX, CDP #### [facility] [address] [place] [id number] School Athletic Director: Campos Chandra MDErythrocyte distribution width (RBC) [Ratio]12.8 % Qljxpl58.1-15.2MVeterans Health AdministrationComment on above:Performed By: #### MG, CMPX, CDP #### [facility] [address] [place] [address] School Athletic Director: Campos Chandra MDHematocrit (Bld) [Volume fraction]36.7 %Normal 36-46[facility] Portage Medical CenterComment on above:Performed By: #### MG, CMPX, CDP #### [facility] [address] [place], [place] [id number] School Athletic Director: Campos Chandra MDHemoglobin (Bld) [Mass/Vol]12.5 g/dLNormal 12.0-16.0[facility] Medical CenterComment on above:Performed By: #### MG, CMPX, CDP #### [facility] [address] [place], [place] [id number] School Athletic Director: Campos Chandra MDLymphocytes (Bld) [#/Vol]2.70 10*3/uLNormal1.0-4.8 [facility] Medical CenterComcorewell health gerber hospital on above:Performed By: #### MG, CMPX, CDP #### [facility] [address] [place], [place] [id number] School Athletic Director: Campos Chandra MDLymphocytes/100 WBC (Bld)30 %Rulwgw05-60EvwkiUniversity Hospitals Portage Medical CenterComment on above:Performed By: #### MG, CMPX, CDP #### [facility] [address] [place] [id number] School Athletic Director: MELITON WongCH (RBC) [Entitic mass]30.6 uyRhwwfn00-90OsbiiUniversity Hospitals Portage Medical CenterComment on above:Performed By: #### MG, CMPX, CDP #### [facility] [address] [place] [id number] School Athletic Director: MELITON WongCHC (RBC) [Mass/Vol]34.2 g/iCFggady68-93TkqcxUniversity Hospitals Portage Medical CenterComment on above:Performed By: #### MG, CMPX, CDP #### [facility] [address] [place] [id number] School Athletic Director: MELITON WongCV (RBC) [Entitic vol]89.7 bCJmziju12-719TwdgdUniversity Hospitals Portage Medical CenterComment on above:Performed By: #### MG, CMPX, CDP #### [facility] [address] [place] [id number] School Athletic Director: MELITON Wongonocytes (Bld) [#/Vol]0.50 10*3/uLNormal0.0-1.0 [facility] on above:Performed By: #### MG, CMPX, CDP #### [facility] [address] [place] [id number] School Athletic Director: MELITON Wongonocytes/100 WBC (Bld)5 %Normal4-8[facility] Medical CenterComment on above:Performed By: #### MG, CMPX, CDP #### [facility] [address] [place] [id number] School Athletic Director: Campos Chandra MDNeutrophil (Seg)65 %Zaghyc67-21WjyouUniversity Hospitals Portage Medical CenterComment on above:Performed By: #### MG, CMPX, CDP #### [facility] [address] [place], [place] [id number] School Athletic Director: Kristin Wong ([facility]) [#/Vol]271 10*3/jTWafylm997-586 [facility] Medical CenterComment on above:Performed By: #### MG, CMPX, CDP #### [facility] [address] [place] [address] School Athletic Director: NORIS Wong ([facility]) [#/Vol]4.09 10*6/uLNormal4.0-5.2MVeterans Health AdministrationComment on above:Performed By: #### MG, CMPX, CDP #### [facility] [address] [place] [address] School Athletic Director: LETTY Wong ([facility]) [#/Vol]8.9 10*3/uLNormal3.5-11.0[facility] Medical CenterComment on above:Performed By: #### MG, CMPX, CDP #### [facility] [address] [place] [address] School Athletic Director: MDAbs. MarvinImm.GranulocyteNOT REPORTEDNormal0.00-0.30 [facility] Medical CenterComment on above:Performed By: #### MG, CMPX, CDP #### [facility] [address] [place] [address] School Athletic Director: Macario Wong GranulocyteNOT YUGOQQVAZsvmro8TgkocUniversity Hospitals Portage Medical CenterComment on above:Performed By: #### MG, CMPX, CDP #### [facility] [address] [place] [address] School Athletic Director: MELITON WongPVNOT REPORTEDNormal6.0-12.0[facility] Medical CenterComcorewell health gerber hospital on above:Performed By: #### MG, CMPX, CDP #### [facility] [address] [place], [place] [id number] School Athletic Director: SEBASTIAN Wong AutomatedNOT REPORTEDNoKettering Health – Soin Medical CenterComment on above:Performed By: #### MG, CMPX, CDP #### [facility] [address] [place] [address] School Athletic Director: Minh Wongtelet EstimateNOT REPORTEDNormKeenan Private HospitalComment on above:Performed By: #### MG, CMPX, CDP #### [facility] [address] [place], [place] [id number] School Athletic Director: NORIS Wong morphology finding Nom (Bld)NOT REPORTEDNormal [facility] Medical CenterComment on above:Performed By: #### MG, CMPX, CDP #### [facility] [address] [place] [address] School Athletic Director: LETTY Wong MorphologyNOT REPORTEDUniversity Hospitals Health SystemComment on above:Performed By: #### MG, CMPX, CDP #### [facility] [address] [place] [address] School Athletic Director: Ligia Wong Metabolic Pr/rfx MGon [id number] [Moles/Vol]3.5 mmol/LLow3.7-5.3MercLos Angeles Community Hospital of NorwalkComment on above:Performed By: #### MG, CMPX, CDP #### [facility] [address] [place], [place] [id number] School Athletic Director: Campos Chandra MD(cont.)[facility] Hospitals Health SystemComment on above:Result Comment: Average GFR for 30-39 years old: 107 mL/min/1.73sq m Chronic Kidney Disease: <60 mL/min/1.73sq m Kidney failure: <15 mL/min/1.73sq m eGFR calculated using average adult body mass. Additional eGFR calculator available at: http://www.FarmLogs.com/multiple_crcl_2012.htmPerformed By: #### MG, CMPX, CDP #### [facility] [address] [place] [id number] School Athletic Director: Campos Chandra MDAlbumin [Mass/Vol]3.8 g/dLNormal3.5-5.2MercLos Angeles Community Hospital of NorwalkComment on above:Performed By: #### MG, CMPX, CDP #### [facility] [address] [place] [address] School Athletic Director: Teresa Wongline Phos56 U/PRuteuj12-096CrngaUniversity Hospitals Portage Medical CenterComment on above:Performed By: #### MG, CMPX, CDP #### [facility] [address] [place] [address] School Athletic Director: Campos Chandra MDALT [Catalytic activity/Vol]13 U/LNormal5-33[facility] Port[facility] Medical CenterComment on above:Performed By: #### MG, CMPX, CDP #### [facility] [address] [place] [address] School Athletic Director: Campos Chandra MDAnion gap [Moles/Vol]10 mmol/LNormal9-17[facility] on above:Performed By: #### MG, CMPX, CDP #### [facility] [address] [place] [address] School Athletic Director: Campos Chandra MDAST [Catalytic activity/Vol]16 U/LNormal<32[facility] Medical CenterComment on above:Performed By: #### MG, CMPX, CDP #### [facility] [address] [place] [phone] School Athletic Director: Campos Chandra MDBilirubin [Mass/Vol]0.23 mg/dLLow0.30-1.20[facility] Medical CenterComment on above:Performed By: #### MG, CMPX, CDP #### [facility] [address] [place] [address] School Athletic Director: Campos Chandra MDBUN/CRE Xhdlh91Yesouv5-13To[facility] Comment on above:Performed By: #### MG, CMPX, CDP #### [facility] [address] [place] [id number] School Athletic Director: NITESH Wongalcium [Mass/Vol]9.2 mg/dLNormal8.6-10.4[facility] Medical CenterComment on above:Performed By: #### MG, CMPX, CDP #### [facility] [address] [place] [address] School Athletic Director: NITESH Wonghloride [Moles/Vol]105 mmol/MGxvwko72-856OsttpUniversity Hospitals Portage Medical CenterComment on above:Performed By: #### MG, CMPX, CDP #### [facility] [address] [place] [address] School Athletic Director: NITESH WongO2 [Moles/Vol]23 mmol/DUltjrz88-14QnwynUniversity Hospitals Portage Medical CenterComment on above:Performed By: #### MG, CMPX, CDP #### [facility] [address] [place] [address] School Athletic Director: NITESH Wongreatinine [Mass/Vol]0.44 mg/dLLow0.50-0.90[facility] Port[facility] Medical CenterComment on above:Performed By: #### MG, CMPX, CDP #### [facility] [address] [place], [place] [id number] School Athletic Director: FATEMEH Wong, Amer>60Normal>60[facility] Comment on above:Performed By: #### MG, CMPX, CDP #### [facility] [address] [place] [address] School Athletic Director: Campos Chandra MDGFR,non Amer>60Normal>60MerGenesee HospitalComment on above:Performed By: #### MG, CMPX, CDP #### [facility] [address] [place] [address] School Athletic Director: Campos Chandra MDGlucose [Mass/Vol]90 mg/aVYmzjnu20-34HuyuyVeterans Health AdministrationComment on above:Performed By: #### MG, CMPX, CDP #### [facility] [address] [place] [address] School Athletic Director: Campos Chandra MDProtein [Mass/Vol]7.0 g/dLNormal6.4-8.3MVeterans Health AdministrationComment on above:Performed By: #### MG, CMPX, CDP #### [facility] [address] [place] [address] School Athletic Director: MARCK Wongodium [Moles/Vol]138 mmol/IImrhbq288-011OxkhbUniversity Hospitals Portage Medical CenterComment on above:Performed By: #### MG, CMPX, CDP #### [facility] [address] [place] [address] School Athletic Director: Campos Chandra MDUrea nitrogen [Mass/Vol]8 mg/dLNormal6-20MerGenesee HospitalComment on above:Performed By: #### MG, CMPX, CDP #### [facility] [address] [place] [id number] School Athletic Director: Campos Chandra MDAlbumin/Glob RatioNOT REPORTEDNormal1.0-2.5MerGenesee HospitalComment on above:Performed By: #### MG, CMPX, CDP #### [facility] [address] [place] [phone] School Athletic Director: Campos Sturtz, MDStaging:NOT REPORTEDNormalMercy Medardo Hospital Comment on above:Performed By: #### MG, CMPX, CDP #### [facility] [address] [place] [address] School Athletic Director: NITESH Wongomprehensive Metabolic Panel w/ Reflex to MG Ordered By: Venecia Patterson on 45-62-0690Hqqvqbk [Mass/Vol]3.8 g/dL3.5 - 5.2 g/dL [facility] [employer] Phone: Jlbumin/Globulin RatioNOT REPORTEDRiverview Health Institute [employer]Fan Phone: CLP (Bld) [Catalytic activity/Vol]56 U/L35 - 104 U/L [facility] [employer] Phone: ALT [Catalytic activity/Vol]13 U/L5 - 33 U/LMholzer hospital [employer] Phone: Nnion gap [Moles/Vol]10 mmol/L9 - 17 mmol/LMholzer hospital [employer] Phone: NST [Catalytic activity/Vol]16 U/L<32[facility] [employer] Phone: Bilirubin [Mass/Vol]0.23 mg/dLLow0.30 - 1.20 mg/dL [facility] [employer] Phone: Balcium [Mass/Vol]9.2 mg/dL8.6 - 10.4 mg/dLRiverview Health Institute [employer] Phone: Fhloride [Moles/Vol]105 mmol/L98 - 107 mmol/LMholzer hospital [employer] Phone: QO2 [Moles/Vol]23 mmol/L20 - 31 mmol/LMholzer hospital [employer] Phone: Xreatinine [Mass/Vol]0.44 mg/dLLow0.50 - 0.90 mg/dL [facility] [employer] Phone: Free PSA/Total PSA [Mass fraction]7.0 g/dL6.4 - 8.3 g/dLMeriiko Phone: GFR >60>60 mL/minShelby Memorial Hospitaliiko Phone: GFR Non->60>60 mL/minShelby Memorial Hospitaliiko Phone: GFR/1.73 sq M.predicted MDRD (S/P/Bld) [Vol rate/Area] [facility]MC[facility] Phone: comment on above:Average GFR for 30-39 years old: 107 mL/min/1.73sq m Chronic Kidney Disease: <60 mL/min/1.73sq m Kidney failure: <15 mL/min/1.73sq m eGFR calculated using average adult body mass. Additional eGFR calculator available at: http://www.[employer]Mobile/[employer]_crcl_2012.htm GFR/1.73 sq M.predicted MDRD (S/P/Bld) [Vol rate/Area]NOT REPORTEDShelby Memorial Hospitaliiko Phone: Glucose [Mass/Vol]90 mg/dL70 - 99 mg/dLShelby Memorial Hospitaliiko Phone: Interpretation and review of laboratory results AbnormalShelby Memorial Hospitaliiko Phone: potassium [Moles/Vol]3.5 mmol/LLow3.7 - 5.3 mmol/L [facility]MC[facility] Phone: sodium [Moles/Vol]138 mmol/L135 - 144 mmol/LMholzer hospital [employer] Phone: Urea nitrogen (BldV) [Mass/Vol]8 mg/dL6 - 20 mg/dL [facility] [employer] Phone: Urea nitrogen/Creatinine (Bld) [Mass ratio]18S[facility] Memorial Hospitaliiko Phone: [facility] Hospitaliiko Phone: drug Scr, Abuse, Uron [id number](s),Ur NegativeNormalNEGUniversity Hospitals Portage Medical CenterComment on above:Result Comment: (Positive cutoff 500 ng/mL)Performed By: #### UMICAO, UA, DIOGENES #### [facility] [address] [place] [address] School Athletic Director: Campos Chandra MDBarbiturate(s),UrNegativeNormalNEGMercy Beacham Memorial Hospital on above:Result Comment: (Positive cutoff 200 ng/mL)Performed By: #### UMICAO, UA, DIOGENES #### [facility] [address] [place] [address] School Athletic Director: Campos Chandra MDBenzodiazepine(s)NegativeNormalNEGSelect Medical OhioHealth Rehabilitation Hospital on above:Result Comment: (Positive cutoff 150 ng/mL)Performed By: #### UMICAO, UA, DIOGENES #### [facility] [address] [place] [address] School Athletic Director: NITESH Wongannabinoid(s),UrNegativeNormalNEGMercy Beacham Memorial Hospital on above:Result Comment: (Positive cutoff 50 ng/mL)Performed By: #### UMICAO, UA, DIOGENES #### [facility] [address] [place] [address] School Athletic Director: NITESH Wongocaine MetaboliteNegativeNormalNEGSelect Medical OhioHealth Rehabilitation Hospital on above:Result Comment: (Positive cutoff 150 ng/mL)Performed By: #### UMICAO, UA, DIOGENES #### [facility] [address] [place] [address] School Athletic Director: Melisa Wongadone Ql (U)NegativeNormalNEGMercy Beacham Memorial Hospital on above:Result Comment: (Positive cutoff 200 ng/mL)Performed By: #### UMICAO, UA, DIOGENES #### [facility] [address] [place] [address] School Athletic Director: MELITON Wongethamphetamine, UrNegativeNormalNEGMercy CrossRoads Behavioral Healthment on above:Result Comment: (Positive cutoff 500 ng/mL)Performed By: #### UMICAO, UA, DIOGENES #### [facility] [address] [place] [address] School Athletic Director: Campos Chandra MDOpiate(s), UrNegativeNormalNEGSelect Medical OhioHealth Rehabilitation Hospital on above:Result Comment: (Positive cutoff 100 ng/mL)Performed By: #### UMICAO, UA, DIOGENES #### [facility] [address] [place] [address] School Athletic Director: Campos Chandra MDOxycodone, UrineNegativeNormalNEGSelect Medical OhioHealth Rehabilitation Hospital on above:Result Comment: (Positive cutoff 100 ng/mL)Performed By: #### UMICAO, UA, DIOGENES #### [facility] [address] [place] [address] School Athletic Director: JESUS Wonghencyclidine, UrNegativeNormalNEGSelect Medical OhioHealth Rehabilitation Hospital on above:Result Comment: (Positive cutoff 25 ng/mL)Performed By: #### UMICAO, UA, DIOGENES #### [facility] [address] [place] [address] School Athletic Director: EJSUS Wongropoxyphene,UrineNegativeNormalNEGSelect Medical OhioHealth Rehabilitation Hospital on above:Result Comment: (Positive cutoff 300 ng/mL)Performed By: #### UMICAO, UA, DIOGENES #### [facility] [address] [place], [place] [id number] School Athletic Director: Campos Chandra MDTricyclic antidepressants Screen Ql (U)Negative NormalNEGSelect Medical OhioHealth Rehabilitation Hospital on above:Result Comment: (Positive cutoff 300 ng/mL) Drug screen results are to be used for medical purposes only. All positive results are unconfirmed. Testing for employment or legal uses should be sent to a reference laboratory for confirmation.Performed By: #### UMICAO, UA, DIOGENES #### [facility] [address] [place] [address] School Athletic Director: Campos Chandra MDBuprenorphrine, UrNOT REPORTEDNormalNEGMercy Arlington HospitalComment on above:Performed By: #### UMICAO, UA, DIOGENES #### [facility] [address] [place] [address] School Athletic Director: Campos Chandra MDInterpretive InfoNOT REPORTEDNormalMercy Arlington HospitalComment on above:Performed By: #### UMICAO, UA, DIOGENES #### [facility] [address] [place] [address] School Athletic Director: MELITON WongDMA, UrineNOT REPORTEDNormalNEGMercy Arlington HospitalComment on above:Performed By: #### UMICAO, UA, DIOGENES #### [facility] [address] [place] [address] School Athletic Director: Campos Chandra MDDrug screen multi urineOrdered By: Venecia Patterson on [id number] Screen, UrNegativeNEGATIVEMercy Health Work Phone: comment on above: (Positive cutoff 500 ng/mL) Barbiturate Screen, UrNegativeNEGATIVEMercy Health Work Phone: comment on above: (Positive cutoff 200 ng/mL) Benzodiazepine Screen, UrineNegativeNEGATIVEMercy Health Work Phone: comment on above: (Positive cutoff 150 ng/mL) Buprenorphine UrineNOT REPORTEDNEGATIVEMercy Health Work Phone: cannabinoid Scrn, UrNegativeNEGATIVEMercy Health Work Phone: comment on above: (Positive cutoff 50 ng/mL) Cocaine Metabolite, UrineNegativeNEGATIVEMercy Health Work Phone: comment on above: (Positive cutoff 150 ng/mL) MDMA, UrineNOT REPORTEDNEGATIVEMercy Health Work Phone: Methadone Screen, UrineNegativeNEGATIVEMercy Health Work Phone: comment on above: (Positive cutoff 200 ng/mL) Methamphetamine, UrineNegativeNEGATIVEMercy Health Work Phone: comment on above: (Positive cutoff 500 ng/mL) Opiates, UrineNegativeNEGATIVEMercy Health Work Phone: comment on above: (Positive cutoff 100 ng/mL) Oxycodone Screen, UrNegativeNEGATIVEMercy Health Work Phone: comment on above: (Positive cutoff 100 ng/mL) Phencyclidine, UrineNegativeNEGATIVEMercy Health Work Phone: comment on above: (Positive cutoff 25 ng/mL) Propoxyphene, UrineNegativeNEGATIVEMercy Health Work Phone: comment on above: (Positive cutoff 300 ng/mL) Test InformationNOT REPORTEDMercy Health Work Phone: Tricyclic Antidepressants, UrineNegativeNEGATIVEMercy Health Work Phone: comment on above: (Positive cutoff 300 ng/mL) Drug screen results are to be used for medical purposes only. All positive results are unconfirmed. Testing for employment or legal uses should be sent to a reference laboratory for confirmation. [facility] Work Phone: HCG, Lionel [phone], [id number] IU/LHigh<5[facility] Medical CenterComment on above:Result Comment: Non-preg premeno <=5 Postmeno <=8 Male <=3 If HCG results do not concur with clinical observations, additional testing to confirm results is recommended. Elevated results not associated with may be found in patients with other diseases such as tumors of the germ cells (testis, ovaries, etc.), bladder, pancreas, stomach, lungs, and liver.Performed By: #### Amaris #### [facility] [address] [place], [place] [id number] School Athletic Director: Aleksandr Wonggnesiumon [id number] [Mass/Vol]1.8 mg/dLNormal1.6-2.6Muniversity hospitals elyria medical centery Arlington HospitalComment on above:Performed By: #### MG, CMPX, CDP #### [facility] [address] [place] [address] School Athletic Director: Campos Chandra MDMagnesiumOrdered By: Venecia Patterson on 04-30-2021 Magnesium [Mass/Vol]1.8 mg/dL1.6 - 2.6 mg/dLMercy Health Work Phone: [facility] Work Phone: Microscopic UrinalysisOrdered By: Venecia Patterson on 04-30-2021-[facility] Work Phone: amorphous, UANOT REPORTEDNoneMercy Health Work Phone: bacteria, UANOT REPORTEDNoneMercy Health Work Phone: casts UANOT REPORTED/LPFMercy Health Work Phone: crystals, UANOT REPORTEDNone /HPFMercy Health Work Phone: epithelial Cells UANOT REPORTED/HPFMercy Health Work Phone: Mucus, UANOT REPORTEDNoneMercy Health Work Phone: Other Observations UANOT REPORTEDNOT REQ.[facility] Work Phone: rBC, UALOADEDMercy Health Work Phone: renal Epithelial, UANOT REPORTED0 /HPFMercy Health Work Phone: Trichomonas, UANOT REPORTEDNoneMercy Health Work Phone: WBC, UA2 TO 50 /HPFMercy Health Work Phone: Yeast, UANOT REPORTEDNoneMercy Health Work Phone: [facility] Work Phone: Urinalysis, Routineon 34-20-8605Xrihsnrgv, SemiQt,Ur NegativeNormalNEGUniversity Hospitals Portage Medical CenterComment on above:Performed By: #### UMICAO, UA, DIOGENES #### [facility] [address] [place] [address] School Athletic Director: Mery Wong, Urine3+AbnormalPremier Health [facility] Comment on above:Performed By: #### UMICAO, UA, DIOGENES #### [facility] [address] [place] [address] School Athletic Director: NITESH Wonglarity (U)CLOUDYAbnormalCLEARMercLos Angeles Community Hospital of NorwalkComment on above:Performed By: #### UMICAO, UA, DIOGENES #### [facility] [address] [place] [address] School Athletic Director: NITESH Wongolor (U)YELLOWNoalYSt. Charles Hospital Comment on above:Performed By: #### UMICAO, UA, DIOGENES #### [facility] [address] [place] [address] School Athletic Director: Seda WongmentNormalUniversity Hospitals Portage Medical CenterComment on above:Performed By: #### UMICAO, UA, DIOGENES #### [facility] [address] [place] [address] School Athletic Director: Campos Chandra MDGlucose Ql (U)NegativeNormalNEGUniversity Hospitals Portage Medical CenterComment on above:Performed By: #### UMICAO, UA, DIOGENES #### [facility] [address] [place] [address] School Athletic Director: Campos Chandra MDKetones Ql (U)NegativeNormalNEGUniversity Hospitals Portage Medical CenterComment on above:Performed By: #### UMICAO, UA, DIOGENES #### [facility] [address] [place] [address] School Athletic Director: Campos Chandra MDLeukocyte esterase Test strip Ql (U)1+AbnormalNEG University Hospitals Portage Medical CenterComment on above:Performed By: #### UMICAO, UA, DIOGENES #### [facility] [address] [place] [address] School Athletic Director: Luana Wongtrite,UrNegativePremier Health [facility] Comment on above:Performed By: #### UMICAO, UA, DIOGENES #### [facility] [address] [place] [address] School Athletic Director: JESUS Wong,Ur5.8Ndqjvu5.0-8.0University Hospitals Portage Medical CenterComcorewell health gerber hospital on above:Performed By: #### UMICAO, UA, DIOGENES #### [facility] [address] [place] [address] School Athletic Director: JESUS Wongrotein Ql (U)3+AbnormalNEGUniversity Hospitals Portage Medical Center Comment on above:Performed By: #### UMICAO, UA, DIOGENES #### [facility] [address] [place] [address] School Athletic Director: MARCK Wongpec. [place],Ur1.493Wdmpmr9.005-1.030University Hospitals Portage Medical CenterComcorewell health gerber hospital on above:Performed By: #### UMICAO, UA, DIOGENES #### [facility] [address] [place] [address] School Athletic Director: Breanna Wongbilinogen,UrNormalNormalNORMUniversity Hospitals Portage Medical CenterComcorewell health gerber hospital on above:Performed By: #### UMICAO, UA, DIOGENES #### [facility] [address] [place], [place] [id number] School Athletic Director: Campos Chandra MDUrinalysis, reflex to microscopicOrdered By: Venecia Patterson on 08-72-7369Aqbbkjxyn UrineNegativeNEGATIVEMercy Health Work Phone: color, UAYELLOWYELLOWMercy Health Work Phone: Glucose, UrNegativeNEGATIVEMercy Health Work Phone: Interpretation and review of laboratory results AbnormalMercy Health Work Phone: Ketones Ql (U)NegativeNEGATIVEMer Health Work Phone: leukocyte esterase Test strip Ql (U)1+AbnormalNEGATIVE [facility] Work Phone: Nitrite, UrineNegativeNEGATIVEMercy Health Work Phone: wH, UA5.0[facility] Work Phone: protein, UA3+AbnormalNEGATIVEMercy Health Work Phone: specific [place], UA1.025[facility] Work Phone: Turbidity UACLOUDYAbnormalCLEARMercy Health Work Phone: Urinalysis CommentsMercy Health Work Phone: Urine Hgb3+AbnormalNEGATIVEMer Health Work Phone: Urobilinogen, UrineNormalNormalMercy Health Work Phone: [facility] Work Phone: Urinalysis,Microon 04-30-2021-----[facility] Hospitals Health SystemComment on above:Performed By: #### UMREKHAO, UA, DIOGENES #### [facility] [address] [place] [address] School Athletic Director: Campos Chandra MDUrine RBC'sLOADEDNormal0-2MVeterans Health Administration Comment on above:Performed By: #### UMICAO, UA, DIOGENES #### [facility] [address] [place] [address] School Athletic Director: Judy Wong WBC's[address] [place] [address] Comment on above:Performed By: #### UMICAO, UA, DIOGENES #### [facility] [address] [place] [address] School Athletic Director: Lucas Wongrptuckers sediment LM Ql (Urine sed)NOT REPORTED NormalOhioHealth Pickerington Methodist HospitalComment on above:Performed By: #### UMICAO, UA, DIOGENES #### [facility] [address] [place] [address] School Athletic Director: Lola WongcteriaNOT REPORTEDrmWayne HospitalComment on above:Performed By: #### UMICAO, UA, DIOGENES #### [facility] [address] [place] [address] School Athletic Director: Leonora Wong [facility] Comment on above:Performed By: #### UMICAO, UA, DIOGENES #### [facility] [address] [place], [place] [address] School Athletic Director: NITESH Wongrystals LM Nom (Urine sed)NOT REPORTEDNormalNONE [facility] Portage Medical CenterComment on above:Performed By: #### UMICAO, UA, DIOGENES #### [facility] [address] [place] [address] School Athletic Director: Campos Chandra MDEpithelial cells LM Ql (Urine sed)NOT REPORTED [facility] Hospitals Health SystemComment on above:Performed By: #### UMICAO, UA, DIOGENES #### [facility] [address] [place], [place] [address] School Athletic Director: Campos Chandra MDEpithelial, RenalNOT ZJPMOCXTMmpbrf4UuubgUniversity Hospitals Portage Medical CenterComment on above:Performed By: #### UMICAO, UA, DIOGENES #### [facility] [address] [place] [address] School Athletic Director: MELITON Wongucus StrandsNOT REPORTEDNormalNONEMeBellevue Hospital HospitalComment on above:Performed By: #### UMICAO, UA, DIOGENES #### [facility] [address] [place] [address] School Athletic Director: Campos Chandra MDOther ObservationsNOT REPORTEDNormalNREQUniversity Hospitals Portage Medical CenterComment on above:Performed By: #### UMICAO, UA, DIOGENES #### [facility] [address] [place] [address] School Athletic Director: Campos Chandra MDTrichomonasNOT REPORTEDNormalNONEMeUniversity Hospitals Samaritan Medical CenterComment on above:Performed By: #### UMICAO, UA, DIOGENES #### [facility] [address] [place] [address] School Athletic Director: Tyra WongastVILMA REPORTEDrmalOhioHealth Pickerington Methodist Hospital Comment on above:Performed By: #### UMICAO, UA, DIOGENES #### [facility] [address] [place] [address] School Athletic Director: Campos Chandra MDhCG, quantitative, pregnancyOrdered By: Venecia Patterson on 34-20-5628mZH Pblqi51996Vgfx<5 IU/LMercy Health Work Phone: comment on above: Non-preg premeno <=5 Postmeno <=8 Male <=3 If HCG results do not concur with clinical observations, additional testing to confirm results is recommended. Elevated results not associated with may be found in patients with other diseases such as tumors of the germ cells (testis, ovaries, etc.), bladder, pancreas, stomach, lungs, and liver. Interpretation and review of laboratory resultsAbKettering Health Work Phone: [facility] Work Phone: rPR QUANTon 43-84-0238Jutyj Plasma Reagin, Quant Non-ReactiveNormalNonRea<1:1The [facility] Hospitals Conneaut Medical CenterComment on above:Performed By: #### RPRQ #### [facility] [address] [place] [address] Carlos DelanoWillapa Harbor HospitalEP B SURFACE ANTIGEN SCREENon 59-37-9254RFhQp ScreenNegativeNormal NegativeThe University Hospitals Conneaut Medical CenterComment on above:Performed By: #### RUBIGG #### [facility] [address] [place] [address] Carlos DelanoGood Hope HospitalATITIS C VIRUS AB W/ REFLEX QUANTon 74-21-1939WIR AB<0.1Normal 0.0-0.9The [facility] Conneaut Medical CenterComment on above:Performed By: #### HCVPCRR #### [facility] [address] [place] [address] Carlos WickenInterpretation:CommentNormalThe [facility] on above: Result Comment: Negative Not infected with HCV, unless recent infection is suspected or other evidence exists to indicate HCV infection.Performed By: #### HCVPCRR #### [facility] [address] [place] [address] Carlos KarenHIV 1 AND 2 WITH REFLEXon 28-61-2492XZK Screen 4th Generation wRfx Non-ReactiveNormalNon ReactiveThe [facility]als Conneaut Medical CenterComment on above:Performed By: #### RPRQ #### [facility] [address] [place] [address] Carlos KarenRUBELLA AB IGGon 62-89-8743Qieairz Antibodies, IgG2.95 indexNormal Immune >0.99The [facility]ment on above:Result Comment: Non-immune <0.90 Equivocal 0.90 - 0.99 Immune >0.99Performed By: #### RUBIGG #### [facility] [address] [place] [address] Carlos KarenCBC AUTO DIFFon 22-61-3914TDFC #0.0 103/ulNormal0.0-0.1The [facility] Conneaut Medical CenterComment on above:Performed By: #### FLYG #### [facility] [address] [place] [address] Carlos KarenBasophils/100 WBC (Bld)0.3 %Normal0.2-2.0The [facility] Comment on above:Performed By: #### FLYG #### [facility] [address] [place] [address] Carlos KarenEO #0.0 103/ulNormal0.0-0.7The [facility] Conneaut Medical CenterComment on above: Performed By: #### FLYG #### [facility] [address] [place] [address] Carlos KarenEosinophils/100 WBC (Bld)0.5 %Critically low0.9-7.0The [facility] Conneaut Medical CenterComment on above:Performed By: #### FLYG #### [facility] [address] [place] [address] Carlos KarenErythrocyte distribution width (RBC) [Ratio]12.3 %Qqhywq52.0-15.0The [facility] on above:Performed By: #### FLYG #### [facility] [address] [place] [address] Carlos KarenHematocrit (Bld) [Volume fraction]39.2 %Ywtmsv69.0-48.0The [facility] on above:Performed By: #### RUBJEAN-PIERREG #### [facility] [address] [place] [address] Carlos KarenHemoglobin (Bld) [Mass/Vol]13.0 g/fZHbbryg86.0-16.0The [facility] Medical CenterComment on above:Performed By: #### RUBJEAN-PIERREG #### [facility] [address] [place] [address] Carlos KarenIG #0.01 10e3/ulNormal0.00-0.03The [facility] Medical CenterComment on above:Performed By: #### FLYG #### [facility] [address] [address] Carlos DaleG %0.2 %Normal0.0-0.5The [facility] Conneaut Medical CenterComment on above: Performed By: #### FLYG #### [facility] [address] [address] Carlos HullLYMPH #1.7 103/ulNormal1.2-3.8The [facility] Conneaut Medical CenterComment on above: Performed By: #### FLYG #### [facility] [address] [place] [address] Carlos HullLymphocytes/100 WBC (Bld)25.5 %Noxfzb82.5-60.0[facility] Comment on above:Performed By: #### FLYG #### [facility] [address] [place] [address] Carlos HullMANUAL DIFF REQNONormalThe [facility]aut Medical CenterComment on above: Performed By: #### FLYG #### [facility] [address] [place] [address] Carlos KarenTONSIL HOSPITAL (RBC) [Entitic mass]30.2 hjLavuuf98.7-34.0[facility] Comment on above:Performed By: #### FLYG #### [facility] [address] [place] [address] Carlos KarenHARLEM [facility] (RBC) [Mass/Vol]33.2 g/nSOmktze16.9-35.2[facility] Comment on above:Performed By: #### FLYG #### [facility] [address] [place] [address] Carlos KarenV (RBC) [Entitic vol]91.2 nEVpyrty73.0-99.0[facility] Comment on above:Performed By: #### FLYG #### [facility] [address] [place] [address] Carlos HullMONO #0.6 103/ulNormal0.3-0.8The [facility] Medical CenterComment on above: Performed By: #### FLYG #### [facility] [address] [place] [address] Carlos KarenMonocytes/100 WBC (Bld)8.7 %Normal1.7-12.0The [facility] Comment on above:Performed By: #### FLYG #### [facility] [address] [place] [address] Carlos KarenNEUT #4.2 103/ulNormal1.4-6.5The [facility] Medical CenterComment on above: Performed By: #### FLYG #### [facility] [address] [place] [address] Carlos KarenNeutrophils/100 WBC (Bld)64.8 %Zipfgf00.0-75.0The [facility] Comment on above:Performed By: #### FLYG #### [facility] [address] [place] [address] Carlos KarenPlatelet mean volume (Bld) [Entitic vol]9.2 fLCritically low9.5-13.5 The [facility] Medical CenterComment on above:Performed By: #### FLYG #### [facility] [address] [place] [address] Carlos SvypkRWY296 103/ooMnhgzk173-949Mxg [facility] Medical CenterComment on above: Performed By: #### FLYG #### [facility] [address] [place] [address] Carlos KarenRBC4.30 106/ulNormal4.20-5.40The [facility] Medical CenterComment on above: Performed By: #### FLYG #### [facility] [address] [place] [address] Carlos KarenWBC6.5 103/ulNormal4.0-11.0The [facility] Medical CenterComment on above: Performed By: #### FLYG #### [facility] [address] [place] [address] Carlos KarenCULTURE URINEon 81-85-9896PDJMQIE URINECulture Observations: NO GROWTHNormWVUMedicine Barnesville HospitalComment on above:Performed By: #### RPRQ #### [facility] [address] [place] [address] Carlos KarenGLYCOHEMOGLOBIN A1Con 94-30-7691STN RECOMMENDATIONADA THERAPEUTIC TARGET 6.0 - 7.0 ACTION SUGGESTED > 7.0NoKettering Health Greene MemorialComment on above:Performed By: #### RUBIGG #### [facility] [address] [place] [address] Carlos KarenGlucose [Mass/Vol]94 mg/dLNoKettering Health Greene MemorialComment on above:Performed By: #### ALECIGG #### [facility] [address] [place] [address] Carlos YklmvVbF6o (Bld) [Mass fraction]4.9 %Normal<=6.0The [facility] Comment on above:Performed By: #### ALECIGG #### [facility] [address] [place] [address] [address] KarenNATERA BOX TEST PT SEND OUTon [id number] TO REF LAB04/10/2021 NormalTrihealth Bethesda Butler HospitalComment on above:Performed By: #### ALECIGG #### [facility] [address] [place] [address] Carlos KarenTYPE AND SCREENon 20-34-2351ODCR AND SCREENNegativeNoKettering Health Greene MemorialComment on above:Performed By: #### TNS #### [facility] [address] [place] [address] Carlos KarenUS PREG TVon 38-12-1670WY PREG TVEXAMINATION: US PREG TV HISTORY: test positive COMPARISON: [...] Electronically authenticated by: AYDE MIN Date: 2021-04-02 09:55L[facility] Beachwood Medical CenterOG PANEL 2: 30 to 65on 12-31-2020..NormalThe [facility] Conneaut Medical CenterComment on above:Result Comment: Performed at: WBPerformed By: #### [id number] #### [facility] [address] [address] Carlos KarenAge Gdln ACOG Hheknbg78-75EhzwhyAatKettering Health Greene MemorialComment on above:Performed By: #### [id number] #### [facility] [address] [address] Carlos KarenDIAGNOSIS:CommentAbDelaware County Hospital on above: Result Comment: EPITHELIAL CELL ABNORMALITY. LOW GRADE SQUAMOUS INTRAEPITHELIAL LESION (LSIL). PREDOMINANCE OF COCCOBACILLI CONSISTENT WITH SHIFT IN VAGINAL MARA IS PRESENT. Performed at: WBPerformed By: #### [id number] #### [facility] [address] [address] Carlos KarenElectronically signed by:CommentTriHealth Good Samaritan Hospital on above:Result Comment: Latonya Sharma MD, Pathologist Performed at: WBPerformed By: #### [id number] #### [facility] [address] [address] Carlos KarenHPV AptimaPositiveAbnormalNegativeTrihealth Bethesda Butler HospitalComcorewell health gerber hospital on above:Result Comment: This nucleic acid amplification test detects fourteen high-risk HPV types (16,18,31,33,35,39,45,51,52,56,58,59,66,68) without differentiation. Performed at: =GPerformed By: #### [id number] #### [facility] [address] [address] Carlos KarenMethodology:CommentTriHealth Good Samaritan Hospital on above: Result Comment: This liquid based ThinPrep(R) pap test was screened with the use of an image guided system. Performed at: Performed By: #### [id number] #### [facility] [address] [place] [address] Carlos Phamote:CommentTriHealth Good Samaritan Hospital on above:Result Comment: The Pap smear is a screening test designed to aid in the detection of premalignant and malignant conditions of the uterine cervix. It is not a diagnostic procedure and should not be used as the sole means of detecting cervical cancer. Both false-positive and false-negative reports do occur. . Performed at: WBPerformed By: #### [id number] #### [facility] [address] [place] [address] Carlos WickenPathologist Provided QXB72QtpgjxkPwsuszKrsMercy Health [facility] Hospital on above:Result Comment: R87.612, R87.5 Performed at: Performed By: #### [id number] #### [facility] [address] [place] [address] Carlos HullPerformed by:CommentNoMercy Health Perrysburg Hospital on above: Result Comment: Antoinette Conrad, Multimedia Technician (ASCP) Performed at: Bannerformed By: #### [id number] #### [facility] [address] [place] [address] Carlos WickenRecommendation:CommentAbDelaware County Hospital on above: Result Comment: Suggest follow up as clinically appropriate. Performed at: Performed By: #### [id number] #### [facility] [address] [place] [address] Carlos WickenSpecimen adequacy:CommentTriHealth Good Samaritan Hospital on above:Result Comment: Satisfactory for evaluation. Endocervical and/or squamous metaplastic cells (endocervical component) are present. Performed at: Performed By: #### [id number] #### [facility] [address] [place] [address] Carlos Hull Vital Signs Date TimeVital SignValuePerforming NkupvchryBivhwwxd19-00-9444 08:44-0400Body yfqiif827.2 cmJie Zhao HEAD ATHLETIC TRAINER/STRENGTH COACH Work Phone: [facility] HospitalKpxuhimyxr75-71-2256 08:44-0400Body mass index (BMI) [Ratio]28 kg/z6ZsgcpantJie Zhao HEAD ATHLETIC TRAINER/STRENGTH COACH Work Phone: [phone]-[facility] HospitalPpausnxhon29-30-6192 08:44-0400Body wpcrke37.1 kg Jie Zhao HEAD ATHLETIC TRAINER/STRENGTH COACH Work Phone: [phone] [place], [place] [address]Wtibibgfpp98-36-3008 08:44-0400Diastolic blood pwebedis90 mm[Hg]Jie Zhao HEAD ATHLETIC TRAINER/STRENGTH COACH Work Phone: [phone]-[facility] HospitalOncfotfdrk50-44-0676 08:44-0400Systolic blood tqndujyd898 mm[Hg]Jie Zhao HEAD ATHLETIC TRAINER/STRENGTH COACH Work Phone: [phone] [place], [place] [address]Jjjgdymfsz19-32-9465 13:34-0400Body mass index (BMI) [Ratio]28.32 kg/j5Qrqxy Cecilia DO Work Phone: [phone])[facility] [place], [place] [address]Ckkoftlrwd38-28-5979 13:34-0400Body .01 kgCorey Cecilia DO Work Phone: [phone])[facility] [place], [place] [address]Tdkolzxwtr66-00-6737 13:34-0400Diastolic blood igtjlyqh42 mm[Hg]Sudhir Cecilia DO Work Phone: [phone] [place], [place] [address]Jrwpkytnqq47-33-4865 13:34-0400Systolic blood vnlylvch430 mm[Hg]Sudhir Cecilia DO Work Phone: [phone])[facility] [place], [place] [address]Njyhpvzgqk35-28-7494 16:55-0500Body temperature 98.06 [degF]Chucho Kwon [facility]01-03-2023 16:55-0500 Diastolic blood zcyeeloo679 mm[Hg]Chucho Kwon [facility]01-03-2023 16:55-0500Heart rate91 /minChucho Kwon [facility]01-03-2023 16:55-0500 Respiratory rate18 /minJocarmine Doyle [facility]01-03-2023 16:55-8540ItK5% (BldA) [Mass fraction]98 %Chucho Kwon [facility]01-03-2023 16:55-0500 Systolic blood njaselpw778 mm[Hg]Chucho Kwon [facility]08-05-2021 00:06-0400Body .2976 kgDR EL [facility] HospitalComment on above: Performed By: #### AFPMAT #### [facility] [address] [place] [address] Carlos WickFsooo45-61-2753 17:33-0400Body vecldb755.2 cmVenecia Patterson MD Work Phone: [employer] Work Phone: 1(964) 654-490507-15-2021 17:33-0400Body mass index (BMI) [Ratio] 25.98 kg/v4YxxzcVenecia Patterson MD Work Phone: [employer] Work Phone: 1(173) 113-751707-15-2021 17:33-0400Body vbqgtwzrypr43.9 [degF]Venecia Patterson MD Work Phone: [employer] Work Phone: 1(137) 504-324507-15-2021 17:33-0400Body .25 kgVenecia Patterson MD Work Phone: [employer] Work Phone: 1(144) 189-934107-15-2021 17:33-0400Diastolic blood agrkpcpw51 mm[Hg] Venecia Patterson MD Work Phone: [facility] Work Phone: 1(166) 259-696607-15-2021 17:33-0400Heart rate71 /Jenn Patterson MD Work Phone: [facility] Work Phone: 1(836) 822-458507-15-2021 17:33-0400Respiratory rate18 /minVenecia Patterson MD Work Phone: [facility] Work Phone: 1(690) 409-824507-15-2021 17:33-2480QjI7% (BldA) [Mass fraction]100 % Venecia Patterson MD Work Phone: [facility] Work Phone: 1(418) 739-274407-15-2021 17:33-0400Systolic blood mm[Hg] Venecia Patterson MD Work Phone: [facility] Work Phone: 1(331) 162-776206-23-2021 20:32-0400Body hqepanxwowr37.2 [degF] Anthony Barba MD Work Phone: [facility] Work Phone: 1(976) 263-331206-23-2021 20:32-0400Body lvpeys03.61 kgAnthony Barba MD Work Phone: [facility] Work Phone: 1(662) 622-526806-23-2021 20:32-0400Diastolic blood mm[Hg] Anthony Barba MD Work Phone: [facility] Work Phone: 1(884) 743-133106-23-2021 20:32-0400Heart rate66 /minAnthony Barba MD Work Phone: [facility] Work Phone: 1(803) 562-705006-23-2021 20:32-0400Respiratory rate18 /minAnthony Barba MD Work Phone: [facility] Work Phone: 1(139) [phone] 20:32-1881WmY0% (BldA) [Mass fraction]98 % Anthony Barba MD Work Phone: [facility] Work Phone: 1(565) 522-530306-23-2021 20:32-0400Systolic blood mm[Hg] Anthony Barba MD Work Phone: [facility] Work Phone: Encounters Encounter DateEncounter TypeCare ProviderFacilityStart: 08-13-2025 End: 97-36-5356Rwihbc flowsheetCorey Cecilia DO Work Phone: [facility] [place] OBGYNStart: 08-13-2025 End: 25-59-7870Jzmjvl flowsheetCorey Cecilia DO Work Phone: [facility] OBGYNStart: 07-22-2025 End: 02-80-2014Xqumcs flowsheetJie Pangly HEAD ATHLETIC TRAINER/STRENGTH COACH Work Phone: noMS [place] OBGYNStart: 07-22-2025 End: 44-02-5929Oufskf flowsBrent Pangly HEAD ATHLETIC TRAINER/STRENGTH COACH Work Phone: noms [place] OBGYNStart: 07-22-2025 End: 51-82-7464Hljfsi follow up visit related to original Omarsusan Cece HEAD ATHLETIC TRAINER/STRENGTH COACH Work Phone: [facility]anna OBGYNComment on above:Status post D&C; Positive urine test ([facility])Start: 07-22-2025 End: 63-99-6013kxyvixnzbrITGXLMGI EBERLYNot AvailableStart: 07-11-2025 End: 47-91-7721orjsgkqfpcVZCMount [facility] Work Phone: Start: 07-11-2025 End: 47-47-5597Ohpfioxj [facility] STAFF-LAB Path Spec [place] HospStart: 07-09-2025 End: 54-97-1028Vwlqmapod Result EncounterCorey Cecilia DO Work Phone: noms External Department UnsolicitedStart: 07-09-2025 End: 16-23-1838Pqweeggxb Result EncounterCorey Cecilia DO Work Phone: noms External Department UnsolicitedStart: 07-09-2025 End: 67-05-7990Akhslp outpatient visit 15 minutesCorey Cecilia DO Work Phone: NOZT [place] OBGYNComment on above:Encounter for IUD removal; Missed menses; Positive urine test ([facility])Start: 07-09-2025 End: 56-30-1112vihzjzbhqmEHZVK FAZIONot AvailableStart: 07-08-2025 End: 51-09-1646Jobdizedn Result EncounterCorey Cecilia DO Work Phone: noms External Department UnsolicitedStart: 07-08-2025 End: 42-09-0906Ijdubimxl Result EncounterCorey Cecilia DO Work Phone: noms External Department UnsolicitedStart: 04-17-2025 End: 77-53-0897pnaurzdmxmXjrlclc HARWOODFacility:Occupational Health and WellnessStart: 06-06-2024 End: 14-88-6185mhloyqtcaeQguoshs HARWOODFacility:Occupational Health and WellnessStart: 10-19-2022 End: 29-08-3927Wuwjwufyl department patient visitJohn ParenteFacility:FTMCStart: 10-19-2022 End: 79-11-2807Kyfxicxwy department patient visitJohn Doyle [facility] Start: 10-15-2021 End: 11-55-0205Afqephwszc and management of inpatientDR EL JAIME Facility:N0Rhopn: 10-07-2021 End: 59-69-1185hrtfoncsqnTN EL JAIMEFacility:I7Wpmos: 10-02-2021 End: 90-85-6243fezjztxxbaBU EL JAIMEFacility:R1Sguap: 07-29-2021 End: 69-97-9025xtrqbivauuEY SUDHIR SILVAOFacility:I0Cswir: 07-11-2021 End: 54-10-8219ydakzikjxdJR EL JAIMEFacility:Z7Ictcb: 06-04-2021 End: 71-21-4008esgmwlaekjAQ EL JAIMEFacility:N4Wqchy: 05-18-2021 End: 28-60-4865jklimumyniMD EL JAIMEFacility:I2Ctfji: 04-30-2021 End: 06-10-5253Rsoxetqpk department patient visitVENECIA PATTERSONShelby Memorial Hospitalsandy [facility]field Medical Surgical Hospitaltart: 04-30-2021 End: 04-15-5961Lbppsddag department patient visitVenecia Patterson MD Work Phone: [facility] EDComment on above:Vaginal bleeding in (Primary Dx)Start: 04-30-2021 End: 66-39-5020wsjxwpqdzaDATNPR RODRIGUEZFacility:I7Cqjqh: 04-10-2021 End: 61-22-1991ldxjplighlYT EL JAIMEFacility:C7Tewff: 04-08-2021 End: 54-61-9046Ctftltfsv department patient visitVESTINY PRISCILAITROVMercteddy [facility] Surgical Hospitaltart: 04-08-2021 End: 62-94-7160Hwqfajrdl department patient visitVestiny Barba MD Work Phone: [phone] [place] [address] EDComment on above:Dental infection (Primary Dx)Start: 04-02-2021 End: 83-81-3091clcjrweopwCW NONE LISTED REQUESTFacility:I4Dihiu: 12-25-2020 End: 63-78-9042rhxagfkuksHL EL JAIMEFacility:H1 Procedures DateProcedureProcedure DetailPerforming ClinicianStart: 60-42-5975EO OB TRANSVAGINALCorey Cecilia DO Work Phone: Start: 44-48-7294Aettybt intrauterine device iudCorey Cecilia DO Work Phone: Start: 96-56-0850IXV PREG QUANT HCGCorey Cecilia DO Work Phone: Start: 89-70-5243Aznkloan of Products of Conception, External ApproachDR EL THOMAStart: 97-39-2657Cdyknxpq of Amniotic Fluid, Therapeutic from Products of Conception, Via Natural or Artificial OpeningDR EL THOMAStart: 06-29-1557Kbepzygiujua of Other Hormone into Peripheral Vein, Percutaneous ApproachDR EL THOMAStart: 63-32-9790Uywfl of magnesium Venecia Patterson MD Work Phone: Start: 51-76-1886Llnor typing serologic Zafar Patterson MD Work Phone: Start: 91-59-9323Skbb screen class list aMaria Rao Patterson MD Work Phone: Start: 93-06-8693Gbycdiyekl microscopic onlyVenecia Patterson MD Work Phone: Start: 25-09-2452Nltbz dip stick/tablet rgnt auto w/o microscopyVenecia Patterson MD Work Phone: Start: 15-25-6307InmmdhhVrju Doyle Comment on above:rt wrist mass removalH/O: surgery Status post D&CKrivka Zhao NP Work Phone: Plan of Treatment DateCare ActivityDetailAuthorStart: 08-13-2025 End: 70-86-2641Fnxuest encounter procedureNOMS Jeanna OBGYNComment on above: ArrivedStart: 08-05-2025 End: 46-44-8679Ookblhg encounter mnvrhujfr91/20/2025 1:30 PM EDT Procedure Visit KRISTAL FRAZIER [address] [place] [address] Sudhir Brooks DO [address] [place], [place] [id number] NOMElroy LINDQUISTNStart: 07-22-2025 End: 14-38-7731Xfaowhp encounter eafnxtfdv66/06/2025 8:40 AM EDT Office Visit KRISTAL FRAZIER [address] [place] [address] Jie Zhao, EMELIA [address] [place] [address] Ronaldo FRAZIER Comment on above:ArrivedStart: 07-09-2025 End: 48-98-9644NR Pelvis transvaginalUS OB transvaginal Imaging Routine Missed menses Positive urine test ([facility]) Expected: 07/09/2025, Expires: 10/08/2025[facility] Work Phone: comment on above:Expected: 07/09/2025, Expires: 10/08/2025Start: 07-09-2025 End: 00-92-4774Zpefgpf encounter sunbhmucg84/23/2025 1:10 PM EDT Procedure Visit NOMElroy FRAZIER [address] [place] [id number] Sudhir Brooks DO [address] [place] [place] [address] NOMElroy [place] OBGYNStart: 06-17-2025 Influenza vaccinationInfluenza Vaccine (#1)[facility] HealthcareStart: 06-17-2021 Influenza vaccinationR[facility] Institute One[facility] Phone: start: 86-66-7580Qycpcgyjc for malignant neoplasm of cervixNOMS HealthcareStart: 49-97-3072Qvjpdtdpn for malignant neoplasm of cervix Pap SmearNOMS HealthcareStart: 60-15-5144TUSCI-19 Vaccine (1)COVID-19 Vaccine (1)[facility] [employer] Phone: End: 17-32-5435Wvlpvvk, UrineCulture, Urine Microbiology Routine Once for 1 Occurrences starting 04/30/2021 until 04/30/2021S[facility] Hospitaliiko Phone: comment on above:Once for 1 Occurrences starting 04/30/2021 until 1Culture, UrineCulture, Urine Microbiology Routine 04/30/2021 6:10 PM EDTMVioozer Phone: End: 61-65-8408wHI, quantitative, pregnancyhCG, quantitative, Lab Routine Status post D&C 6 Occurrences starting 07/22/2025 until 07/22/2026[facility] Work Phone: comment on above:6 Occurrences starting 07/22/2025 until 07/22/2026 Payers DatePayer CategoryPayerPolicy [id number] Cross Blue Shield [id number] 2.0.1.647024.3.57[id number] 2.0.1.864263.3.57[id number] 2.0.1.803674.3.57[id number] 2.0.1.552213.3.57[id number] 2.0.1.268349.3.57[id number] 2..1.918116.3.57[id number] 2.0.1.730949.3.57[id number] 2.0.1.385105.3.57[id number] 2.0.1.720462.3.579.2.20060-81-7493Jylultm6975617 2.0.1.139036.3.57[id number] 2.16.840.1.941592.3.57[id number] 2.16.840.1.381519.3.579.2.42975-95-7885Hpswacp3117576 2.16.840.1.214318.3.57[id number] 2.16.840.1.660767.3.579.[id number] 2.16.840.1.872855.3.57[id number] 2.16.840.1.961029.3.57[id number] 2..840.1.383460.3.579.2.677938-98-0459Obsgbre Health [id number] 1.2.840.410860.1.13.239.2.7.3.894497.65499-15-6837Ispd-dua93-94-1458Jkouofp [id number] 1.2.840.376075.1.13.239.2.7.3.318348.315Acmc Healthcare SystemcaidUnited Healthcare [id number] 2.16840.1.9[id number] 2.840.1.045333.3.579.2.531 Social History DateTypeDetailFacilityStart: 04-08-2021 End: 28-89-3425Shnchbp smoking status NHISNever Visible MeasuresShelby Memorial HospitalPostling Work Phone: start: 04-08-2021 End: 46-24-9465Auyvwwx use and exposureNever usedUSINE IOStart: 04-08-2021 End: 03-32-7267Vuqbwkh intakeLifetime non-drinker (finding)[facility]Pur[facility] Work Phone: start: 95-02-4642Umseubc SDOH Alcohol Rvjjytlqd0Shcax Health Work Phone: start: 18-54-2783WlvqajavKpryv Health Work Phone: start: 57-04-4245Cla Assigned At BirthNot on LifeB[facility] Work Phone: exposure to SARS-CoV-2 (event)Not [facility] Start: 63-87-4472Itbogfa smoking statusSmokes tobacco daily (finding)[facility] HospitalComment on above:10/18 ppdStart: 95-67-9081Mxp Assigned At [facility] CampusTobacco smoking status NHISTobacco smoking consumption unknownNOMS HealthcareSexFemale (finding)[facility] Hospitaltart: 77-04-2900Otv Assigned At [facility] Hospitaltart: 00-14-1033Kcydoghxd beverage intakeEx-drinker (finding)[facility] HealthcareStart: 64-18-8889Edqbejt of Social functionNOID HealthcareStart: 14-72-8109QcsTyyfycPZJL Healthcare Functional Status NucmCpewgfjketAicwtnIxxzmrlx18-79-0091Pkjgccvppy StatusN/[facility] Clinical Notes 10-19-2022 to 07-22-2025 Note Date & RjtgNstsUvbgfgpa29-90-7500 History of Present illness Narrative* Jie Zhao NP - 07/22/2025 8:40 AM EDT Reason for Appointment: Patient ID: Sofia Olivares [...] nursing note reviewed. Exam conducted with a water control supervisor present. Vitals: Estimated body mass index is 28 kg/m as calculated from the following: Height as of this encounter: 5' 7 . Weight as of this encounter: 178 lb 12.8 oz. BP: 118/68 No LMP recorded. ASSESSMENT & PLAN ICD-10-CM 1. Status post D&C Z98.890 hCG, quantitative, 2. Positive urine test ([facility]) Z32.01 Patient s/p D and C on 07/11/25. She reports no complaints of pain or bleeding. She was given an order to follow up serial HCG levels to below five. She is scheduled for salpingectomy next month. Documented by Jie Zhao NP on behalf of: Jie Zhao NP documented in this encounterRipley County Memorial HospitalFyesswvqzl57-21-3682 History of Present illness Narrative* Karina BurgessSAROJ - 07/09/2025 1:10 PM EDTAssociated Order(s): IUD [...] US OB transvaginal 3. Positive urine test ([facility]) Z32.01 US OB transvaginal IUD Removal Date/Time: 07/09/2025 1:52 PM Performed by: Sudhir Brooks DO Authorized by: Sudhir Cecilia, DO Consent: Consent obtained: Written Consent given [...] of: Sudhir Brooks DO documented in this encounterRipley County Memorial HospitalHfneztmfvu27-09-4956 Hospital Discharge instructions Patient Education 10/19/2022 18:40:13 Acute Bronchitis, [...] weeks. A cough caused by bronchitis may lastup to 3 weeks. Smoking, allergies, and asthma [...] Follow these instructions at home: Medicines Take gxtl-grp-oyezktn and prescription medicines only as told by [...] and water are not available, use hand safety aide. Avoid contact with people who have cold [...] 11/10/2005 Document Revised: 08/16/2019 Document Reviewed: 03/23/2017 [employer] Patient Education 2020 [employer]. 10/19/2022 18:40:13 Upper Respiratory Infection, Adult, Udxs-qd-Bxkd Upper Respiratory Infection, Adult An upper respiratory [...] day or as needed. To make a salt- water mixture, completely dissolve 1 tsp of salt in 1 cup of warm water. Use a cool-mist humidifier to add moisture to the air. This can help you breathe more easily. Eating and drinking Drink enough fluid to keep your pee (urine) pale yellow. Eat soups and other clear broths. General instructions Take tdyq-cjb-bdhyueg and prescription medicines only as told by [...] not have soap and water, use hand safety aide. Avoid touching your mouth, face, eyes, or [...] get better within 7 10 days. Take sjen-lcc-thscxdm and prescription medicines only as told by your doctor. This information is not intended to replace advice given to you by your health care provider. Make sure you discuss any questions you have with your health care provider. Document Released: 03/21/2009 Document Revised: 10/11/2019 Document Reviewed: 05/26/2018 [employer] Patient Education 2020 [employer]. Follow Up Care 10/19/2022 16:53:44 With:Joaquim Link Address: [address] [place] [address] Business (1) When:10/22/2022 18:20:33 Comments:Follow-up with your primary care provider in 3 to 5 days. If symptoms worsen, do not improve, or new symptoms arise please report back to emergency department for further evaluation. [facility] HospitalEvaluation + Plan note No data available for this section [facility] HospitalEvaluation note* Diagnosis Dental infection- Primary Acute apical periodontitis of pulpal origin documented in this encounter [employer] Phone: evaluation note* Diagnosis Vaginal bleeding in - Primary Unspecified antepartum hemorrhage, unspecified as to episode of care documented in this encounter [facility]Pur[facility] Work Phone: evaluation note* Diagnosis Encounter for IUD removal Missed menses Positive urine test ([facility]) documented in this encounter [facility] HealthcareEvaluation noteNo assessment information availableCleveland Clinic Children[facility] [employer] Work Phone: Evaluation note* Diagnosis Status post D&C Other postprocedural status Positive urine test ([facility]) documented in this encounter [facility] HealthcareHospital Discharge instructions* Attachments The following attachments cannot be sent through Care Everywhere. * Tooth: Abscessed ([place]) documented in this encounterShelby Memorial Hospitaliiko Phone: Hospital Discharge instructions* Attachments The following attachments cannot be sent through Care Everywhere. * : Vaginal Bleeding ([place]) documented in this encounterShelby Memorial Hospitaliiko Phone: progress note No data available for this section [facility] HospitalReason for referral (narrative)No reason for referral information availableCleveland Clinic Children[facility] For [facility] [employer] Work Phone: Summary Purpose Family History No Family History Records FoundNo Family History Records FoundNo Family History Records FoundNo Family History Records FoundNo Family History Records FoundNo Family History Records Found Advance Directives Advance Directive Response Recorded Date/ Time Advance Directives No June 3:23pm Additional Source Comments Reason for Visit (unrecogniz ed section and content) ReasonCommentsDental Painright lower dental pain adn swelling since 04/07/21 eveningReasonCommentsVaginal BleedingPt is 15 weeks , pt of Dr. Jaime in [place]. Pt started bleeding this afternoon around 4pm. Pt called office and they told her to go to hospital. She came here because she lives in [place]. Pt also c/o abdominal cramping.ReasonCommentsIUD removalPatient has had positive test with Mirena. Patient desires Mirena to be removed.ReasonComments Pre-op VisitPost op suction D&C Ordered Prescriptions (unrec ognized section and content) PrescriptionSigDispensedRefillsStart DateEnd Date clindamycin (CLEOCIN) 300 MG capsule Take 1 capsule by mouth 3 times daily for 10 days 30 capsule /12/2020 Scheduled Active and Recently Administ ered Medications (unrecognized section and content) Medication Order/// clindamycin (CLEOCIN) capsule 300 mg (COMPLETED) 300 mg, Oral, ONCE, On Tue04/08/21 at 2100, For 1 dose * 2101 (Given - Provider: Migel Toribio RN) INFORMATION SOURCE (unrecogn ized section and content) DATE CREATED AUTHOR 05/02/2021 [facility] DATE CREATED AUTHOR AUTHOR'S ORGANIZ ATION 10/23/2021 [facility] DATE CREATED AUTHOR AUTHOR'S ORGANIZ ATION 08/16/2023 [facility] DATE CREATED AUTHOR AUTHOR'S ORGANIZ ATION 04/19/2025 [facility] DATE CREATED AUTHOR AUTHOR'S ORGANIZ ATION 07/20/2025 [facility] DATE CREATED AUTHOR AUTHOR'S ORGANIZ ATION 07/24/2025 [facility] EPIC Patient Care team informatio n (unrecognized section and content) Team MemberRelationshipSpecialtyStart DateEnd Date Nakul Elias DO [address] [place] [address] PCP - Generalmily Medicine02/22/23Team MemberRelationshipSpecialtyStart DateEnd Date Nakul Elias DO [address] [place] [address] PCP - Generalmily Medicine02/22/23 Team Status: Inactive Member Role Status Dates NON STAFF Attending Provider Active Start: Se pt2024 End: July 11, 2025Team MemberRelationshipSpecialtyStart DateEnd Date Nakul Elias DO [address] [place] [address] PCP - GeneralFamily Medicine02/22/23Team MemberRelationshipSpecialtyStart DateEnd Date Nakul Elias DO [address] [place] [address] PCP - GeneralFamily Medicine02/22/23 Goals (unrecognized section and content) Goals may [...] BE BASED ON THE PRIMARY CLINICAL RECORDS. [employer] [facility]. provides no warranty or guarantee of the accuracy or completeness of information in this document.
== END 2025-08-13 14:59 | disposition home or self-care (01) ==
LOC: LAB 14:59
PROVIDERS: Visit Provider Obstetrics & Gynecology
DX: Z01.419 Encounter for gynecological examination (general) (routine) without abnormal findings (principal)
CPT/HCPCS: 87624; 88175

== ENCOUNTER 2025-09-02 10:03 | Outpatient (OUT) | payer BC, SELFPAY ==
--- OUTSIDE RECORDS SUMMARY | 2025-09-02 10:09 | XMS_ITS | CCD ---
Author Organization [facility] Care Team Providers Care Database Software Technician Name Role Phone Yifan Umana Primary Care Provider [phone] VENECIA PATTERSON Attending Unavailable MURRAY, YIFAN A Primary Care Unavailable ANTHONY VILLALOBOS Attending Unavailable MURRAY, YIFAN A Primary Care Unavailable KARASIK, DR GALLEGOS Attending Unavailable KARASIK, DR GALLEGOS Admitting [facility] Care Unavailable KARASIK, DR GALLEGOS Consulting [...] Unavailable KARASIK, DR GALLEGOS Consulting Unavailable MURRAY, [facility] Primary Care Unavailable KARASIK, DR GALLEGOS Admitting Unavailable REQUEST, DR GARCIA LISTED Primary Care Unavaila ble KARASIK, DR GALLEGOS Consulting Unavailable KARASIK, DR GALLEGOS Attending Unavailable REQUEST, NONE LISTED Primary Care Unavaila ble KARASIK, DR GALLEGOS Admitting Unavailable KARASIK, DR GALLEGOS Attending Unavailable GLEN PACKER Admitting Unavailable KARASIK, DR GALELGOS Consulting Unavailable GLEN PACKER Attending Unavailable MURRAY, YIFAN Primary Care Unavailable BATLA TORRES Consulting Unavailable YURIY WISE Consulting Unavailable KARASIK, DR GALLEGOS Admitting Unavailable KARASIK, DR GALLEGOS Attending Unavailable KARASIK, DR GALLEGOS Consulting Unavailable MURRAY, YIFAN Primary Care Unavailable ZIEBER, DR AYDE Sousa Consulting Unavailable KARASIK, DR GALLEGOS Admitting Unavailable KARASIK, DR GALLEGOS Attending Unavailable KARASIK, DR GALLEGOS Consulting Unavailable YIFAN MURRAY Primary Care Unavailable PRAMOD ELLIOTT Consulting Unavailable ISIDROK, DR GALLEGOS Procedure Practitioner Unava ilable KARASIK, DR GALLEGOS Admitting Unavailable YIFAN MURRAY Primary [...] Attending Unavailable Joaquim Osuna Primary Care Physician [phone] Chucho Kwon Attending Unavailable Sharath CALIX Attending Unavailable Sharath CALIX Attending Unavailable Nakul Elias DO Primary Care Provider NON STAFF Attending Provider Unavailable NON STAFF Attending Unavailable NON STAFF Admitting Unavailable SUDHIR BROOKS Attending Unavailable JIE ZHAO Attending Unavailable SUDHIR BROOKS Attending Unavailable Nakul Elias DO Primary Care Provider Unallocated , Trevons Provider Primary Care Provi moses Allergies Allergy ClassificationReported Allergen(s)Allergy TypeDate of OnsetReaction(s) Facility (1 source)MorphineDrug Mlqndqc21-54-9893[facility] Medications Current Medications MedicationDrug Class(es)DatesSig (Normalized)Sig (Original)acetaminophen 500 mg oral tablet (9 sources)take 2 tablets by mouth every six hours as neededacetaminophen (Tylenol) 500 MG tablet Take 1,000 mg by mouth every 6 (six) hours if needed Activeacetaminophen 325 mg / HYDROcodone bitartrate 5 mg oral tablet (1 source)Opioid AgonistStart: 46-54-9522Qsvji 325 mg-5 mg oral tablet See Instructions, for pain, 40 tab(s), Refill(s) 0, 1-2 tab(s) Oral q4hr Start Date: 06/17/17 Status: Orderedazithromycin 250 mg Tab 5-day Dose Pack (Z-Abe) (1 source)Start: 10-19-2022 End: 38-84-4623fobghyvxatvr 250 mg Tab 5-day Dose Pack (Z-Abe) = 1 packet(s), Oral, As Directed, as directed on package labeling, X 5 day(s), # 6 tab(s), Refills(s) 0, Pharmacy: [facility], 170, cm,10/19/22 16:59:00 EST, Height/Length Dosing, 66, kg, 10/19/22 16:59:00 EST, Weight Dosing Start Date: 10/19/22 Stop Date: 10/24/22 Status: Orderedcephalexin 500 mg oral capsule (1 source)Cephalosporin AntibacterialStart: 91-62-7355zobl 1 capsule by mouth every eight hourscyclobenzaprine hydrochloride 10 mg oral tablet (1 source)Muscle RelaxantStart: 87-04-0986krmg 1 tablet by mouth three times daily as needed for muscle spasmsdocusate sodium 100 mg oral capsule (1 source)Start: 60-80-0694llvs 1 capsule by mouth twice daily as needed for constipationColace 100 mg Cap 100 mg = 1 cap(s), Oral, BID, PRN for constipation, # 20 cap(s), Refills(s) 0 Start Date: 06/17/17 Status: Ordered gabapentin 300 mg oral capsule (1 source)Anti-epileptic AgentStart: 81-41-1417rkhm 1 capsule by mouth three times dailynaproxen 500 mg delayed release oral tablet (2 sources)Nonsteroidal Anti-inflammatory DrugStart: 33-89-2981pxdi 1 tablet by mouth twice daily at mealtimenaproxen 500 mg oral enteric coated tablet 500 mg = 1 tab(s), Oral, BID, with food, # 60 tab(s), Refills(s) 0 Start Date: 06/17/17 Status: OrderedStart: 97-21-8036gkjo 500 mg by mouth every twelve hours as needed for painnaproxen 500 mg, Oral, q12hr, PRN as needed for pain Start Date: 06/13/17 Status: OrderedoxyCODONE hydrochloride 5 mg oral tablet (1 source)Opioid AgonistStart: 26-91-7329kbxmmmLJVN 50 mg oral tablet (2 sources)Start: 10-19-2022 End: 46-29-1300gden 1 tablet by mouth once dailypredniSONE 50 mg Tab 50 mg = 1 tab(s), Oral, Daily, X 5 day(s), # 5 tab(s), Refills(s) 0, Pharmacy:[facility], 170, cm, 10/19/22 16:59:00 EST, Height/Length Dosing, 66, kg, 10/19/22 16:59:00 EST, Weight Dosing Start Date: 10/19/22 Stop Date: 10/24/22 Status: OrderedStart: 00-22-6097Whbeinnj Vit-Fe Fumarate-FA ( PO) (1 source)take 1 tablet by mouth once dailyPrenatal Vit-Fe Fumarate-FA ( PO) Take 1 tablet by mouth daily 0 ActivePRENATAL VIT-FE FUMARATE-FA PO (8 sources)take 1 tablet by mouth once dailyPRENATAL VIT-FE FUMARATE-FA PO Take 1 tablet by mouth Daily Active Completed/Discontinued Medications MedicationDrug Class(es)DatesSig (Normalized)Sig (Original)clindamycin 150 mg oral capsule (2 sources)Lincosamide AntibacterialStart: 04-08-2021 End: 05-21-7298qnzkasuyrap (CLEOCIN) capsule 300 mgStart: 04-08-2021 End: 11-60-3631ramu 1 capsule by mouth three times dailyclindamycin (CLEOCIN) 300 MG capsule Take 1 capsule by mouth 3 times daily for 10 days 30 capsule 0 04/08/2021 04/18/2021 Activeoxaprozin 600 mg oral tablet (1 source)Nonsteroidal Anti-inflammatory DrugStart: 07-29-2017 End: 82-26-9232bmrr 1 tablet by mouth twice dailyOxaprozin 600 mg Tablet Discontinued 600 MG PO Twice daily July 29, 2017 12:00am March 01, 2018 11:22amtiZANidine 4 mg oral tablet (1 source)Central alpha-2 Adrenergic AgonistStart: 07-29-2017 End: 03-11-9646iwhr 1 tablet by mouth once dailyTizanidine 4 mg tablet Discontinued 4 MG PO Daily July 29, 2017 12:00am March 01, 2018 11:22am Problems Active Problems Problem ClassificationProblemDateDocumented DateEpisodic/ChronicChronic obstructive pulmonary disease and bronchiectasis (1 source)Bronchitis; Translations: [Bronchitis, not specified as acute or chronic]Onset: 81-00-0242GzjfsyngGulqyamuobtlm and procreative management (10 sources)Patient encounter status; Translations: [Encounter for removal of intrauterine contraceptive device]Onset: 968457-27-0414YrmnzcdjPqayisunm of teeth and jaw (1 source)Infection of [...] (1 source)Missed period; Translations: [Irregular menstruation, unspecified] 59-18-4018GwotuheYlzvf complications of (4 sources)Decreased movements, third trimester, not applicable or unspecified; Translations: [DECR MOVEMENTS 3RD TRI NA/UNS]Onset: 50-69-7172WujqpiiqRmqnt female genital disorders (1 source)Other specified noninflammatory disorders of vagina; Translations: [OTH SPEC NONINFLAMMATORY D/O VAGINA]Onset: 16-39-8560PfjyfikdQzxsz and delivery including normal (12 sources)Encounter for supervision of normal , unspecified, third trimester; Translations: [Encounter for full-term uncomplicated delivery]Onset: 50-02-5917RbbbxyofGswkp screening for suspected conditions (not mental disorders or infectious disease) (20 sources)Encounter for screening for Streptococcus B; Translations: [Encounter for screening for diabetes mellitus]Onset: 72-79-4075SwegryckArilt skin disorders (1 source)Mass of soft loniby99-41-2376RdpezxaaTrprrrs on above:right wrist Residual codes; unclassified (1 source)39 weeks gestation of ; Translations: [39 WEEKS GESTATION OF ]Onset: 58-58-8426LnzwxjheFluxxaai codes; unclassified (1 source)37 weeks gestation of ; Translations: [37 WEEKS GESTATION OF ]Onset: 57-13-9629CaidxfleYxczyxfkb-related disorders (1 source)Lrfgcb59-48-3229RsrqufiAiyazki on above:Added secondary to documentation in Social History.Unclassified (1 source)CONTACT W/AND (SUSP) EXPOS COVID-19; Translations: [CONTACT W/AND (SUSP) EXPOS COVID-19]Onset: 10-22-2021 Past or Other Problems Problem ClassificationProblemDateDocumented DateEpisodic/ChronicResidual codes; unclassified (1 source)15 weeks gestation of ; Translations: [15 WEEKS GESTATION OF ]Onset: 56-83-4455XbcmhcysPkitwtdqz and history of mental health and substance abuse codes (1 source)Personal history of nicotine dependence; Translations: [PERSONAL HISTORY OF NICOTINE DEPEND]Onset: 90-46-1297Dfkwllrv Results Test NameValueInterpretationReference RangeFacilityIGP,APTIMA HPV,AGE GDLNon 67-40-3106AEQ GDLN ACOG TESTINGNote.NOMS HealthcareComment on above:TESTS RESULT FLAG UNITS REF RANGE LAB Clinician Provided Cytology Information Source.............Cervix;Endocervix No. of containers..01 ThinPrep Vial Age Algo ACOG Elodia... FLAG LEGEND: L-Low Normal,H-High Normal,LL-Alert Low,HH-Alert High <-Panic Low,>-Panic High,A-Abnormal,AA-Critical Abnormal Performed at: 01 =[address] [place] [address] Kendra Ferrer MD, HPV APTIMANegativeNegativeNOMS HealthcareComment on above:This nucleic acid amplification test detects fourteen high- risk HPV types (16,18,31,33,35,39,45,51,52,56,58,59,66,68) without differentiation. Performed at: =[address] [id number] Cable Reeler: Kendra Ferrer MD, Phone: [phone] Performed at: [address] [id number] Cable Reeler: Kendra Ferrer MD, Phone: [phone] IGP, APTIMA HPV, RFX 16/18,45Note.NOMS HealthcareComment on above:TESTS RESULT FLAG UNITS REF RANGE LAB DIAGNOSIS: 02 UNSATISFACTORY FOR EVALUATION. SPECIMEN REPROCESSED FOR INTERPRETATION USING GLACIAL ACETIC ACID (GAA). Recommendation: 02 Suggest follow up as clinically appropriate. Specimen adequacy: 02 Specimen processed and examined but unsatisfactory for evaluation of epithelial abnormality because of obscuring blood. Performed by: 02 Darcie Calle, Job Checker (ASCP) QC reviewed by: 02 Velia Uribe, Job Checker (ASCP) . 02 Note: Note 02 The Pap smear is a screening test designed to aid in the detection of premalignant and malignant conditions of the uterine cervix. It is not a diagnostic procedure and should not be used as the sole means of detecting cervical cancer. Both false-positive and false-negative reports do occur. Test Methodology: Note 02 This liquid based ThinPrep(R) pap test was interpreted using the InTuun SystemsRDsg.nr(TM) Cervical Algorithm whole slide imaging system. HPV Genotype Reflex Note 02 Criteria not met, HPV Genotype not performed. FLAG LEGEND: L-Low Normal,H-High Normal,LL-Alert Low,HH-Alert High <-Panic Low,>-Panic High,A-Abnormal,AA-Critical Abnormal Performed at: [address] [address] Kendra Ferrer MD, BRUSH-SPATULA CERVIX ENDOCERVIX [facility] CenterPathology Request for Lab Corpon 90-51-2833Xzbdgwfeb Request for Lab CorpNormMemorial Regional Hospital Physician GroupComment on above:Order Comment: SUBMITTING DR: CESAR Desir Comment: See report. Scanned copy available in EMR. PERFORMED BY: [place] [address] PATHOLOGIST TEACHER MUSIC NICK HARRINGTON M.D.Performed By: #### [facility] #### [place] [address] USAIUD Removalon 49-08-5323ZuffwofgjgKarina Burgess MA 07/09/2025 2:05 PM IUD Removal [...] Pt also wanting to schedule for bilateral salpingectomy.KRISTAL DouglasUS OB TRANSVAGINALon 64-12-1846[place] [address] Ultrasound Report Signed Patient: SOFIA OLIVARES MR#: [id number] : 1990 Acct:[id number] Age/Sex: 35 / F ADM Date: 07/09/25 Loc: US Attending Dr: Sudhir Brooks D.O. Ordering Physician: Sudhir Brooks D.O. Date of Service: 07/09/25 Procedure(s): US OB transvaginal Accession Number(s): [id number] cc: Sudhir Brooks D.O.; YIFAN MURRAY [place] [address] Patient Name: SOFIA OLIVARES MRN: [id number] date: 1990 Sex: F Assigned Patient Location: US Current Patient Location: US Accession/Order Number: [id number] Exam Date: 07/09/2025 14:32 Report Date: 07/09/2025 [...] Jr., D.O. 07/09/2025 3:10 PM Dictation Location: [place] [address] Electronically authenticated by: [id number] Y Date: 07/09/2025 15:10 Dictated By: Ricardo Umanzor M.D. Signed By: 07/09/25 1530 DD/ 1510 TD/TT: Back Roller:TBHRadiology, Radiologist, - 07/09/2025 [place] [address] Ultrasound Report Signed Patient: SOFIA OLIVARES MR#: [id number] : 1990 Acct:[id number] Age/Sex: 35 / F ADM Date: 07/09/25 Loc: US Attending Dr: Sudhir Brooks D.O. Ordering Physician: Sudhir Brooks D.O. Date of Service: 07/09/25 Procedure(s): US OB transvaginal Accession Number(s): [id number] cc: Sudhir Brooks D.O.; YIFAN MURRAY [place] [id number] Patient Name: SOFIA OLIVARES MRN: [id number] date: 1990 Sex: F Assigned Patient Location: US Current Patient Location: US Accession/Order Number: [id number] Exam Date: 07/09/2025 14:32 Report Date: 07/09/2025 [...] Jr., D.O. 07/09/2025 3:10 PM Dictation Location: [place] [address] Electronically authenticated by: [id number] Y Date: 07/09/2025 15:10 Dictated By: Ricardo Umanzor M.D. Signed By: 07/09/25 1530 DD/ 1510 TD/TT: Back Roller: KRISTAL HealthcareRadiology Study observation (narrative)NOMS HealthcareUS OB TRANSVAGINALOrdered By: Radiologist Radiology on 29-07-9233XZXM N42 Work Phone: [facility] PREG QUANT HCGon 06-40-3105ZBZ BTIEBUZVDHUY86 mIU/mLNOMS HealthcareComment on above:5-50 0.2-1 WEEK 50-500 1-2 WEEKS 100-5,000 2-3 WEEKS 500-10,000 3-4 WEEKS 1,000-50,000 4-5 WEEKS 10,000-100,000 5-6 WEEKS 15,000-200,000 6-8 WEEKS 10,000-100,000 2-3 MONTHS CLINISYNCCox BransonED Note-Physicianon 00-70-5964RP Note-PhysicianBasic Information Time Seen: Chucho Kwon DO [...] cough for her. Reports that he tried pmzp-akz-dwtobkj medications, with no relief of her symptoms. [...] and Complexity of Problems Differential Diagnosis: [] [facility] Data External documents reviewed: [] My EKG interpretation: [] My CT interpretation: [] My X-ray interpretation: Reviewed My Ultrasound interpretation: [] Decision rules/scores evaluated: [] Discussed with: [] Treatment and Disposition ED Course: 32-year-old female reports emergency department chief complaint of cough that is been going since a month ago. Reports that it is not getting better. Reports that she has tried hdpf-vhw-xriavyg medications without much relief of her symptoms. Reports that she is still coughing. Denies any recent antibiotic use. Reports that she has tried paiy-pyh-gbcbmyl medication without relief. Denies any fevers or [...] antibiotics and medication as prescribed. Continue take mwys-oui-fdmzgip medications. Discussed return precautions. Follow-up with your [...] day(s), # 6 tab(s), Refills(s) 0, Pharmacy: [facility], 262 (more content not included)...[facility] HospitalComment on above:Result Comment: Electronically Signed By: Tony Hamlin PA-C\.br\Date and Time Signed: 10/19/2320:25 EST\.br\Electronically Co-Signed By: Chucho Kwon DO\.br\Date and Time Co-Signed: 10/26/22 07:09 ESTCoding Summary.on 10-22-2022 Coding Summary. CD:[id number]+PGhlYWQ+GQ5JFVYgF48hsVYurI1GH7oJUF8HZABFOHIJNZ7PXI8an JE9GSrkW9AtnuWg [file] cHNl (more content not included)...[facility] HospitalXR Chest 2 Viewson 54-41-9030GQ Chest 2 ViewsExam Date/Time: 10/19/2022 18:12 EST [...] Milton Ochoa M.D. Transcribed by: LACY Technologist: [facility] HospitalConsent for Treatmenton 65-36-5429Xgprhwx for Treatment [id number]#1.00CD:[address] [place], [place] [address]Discharge Instructionson 63-38-6004Ngmchtwzw Instructions [id number]#1.00CD:127[facility] Clinical Summaryon 13-23-2873LN Clinical Summary [place] [id number] ED Clinical Summary Person Information [facility]: [facility] Age[facility] 32 Years : 1990 Sex: Female Language: Somali PCP: Joaquim Osuna DO Marital Status: Single Phone: [phone] Visit Id: Visit Reason: Sinus Pain/Congestion; Cough; [...] 18:40:12 10/19/2022 18:40:12 ADDRESS: [address] [facility] [id number] PHYS DOC NOTES: MEDICAL INFORMATION: Prescriptions Given: New Medications [facility], [address], [place] [id number], [phone] azithromycin (azithromycin 250 mg Tab 5-day Dose Pack (Z-Abe)) 1 Packets By Mouth As Directed for 5Days. as directed on package labeling. Refills: 0. predniSONE (predniSONE 50 mg Tab) 1 Tablets By Mouth every day for 5 Days. Refills: 0. Medications to Continue with No Changes Other Medications acetaminophen-hydrocodone ([place] 325 mg-5 mg oral tablet) 1-2 tab(s) [...] Acute Bronchitis, Adult; Upper Respiratory Infection, Adult, Emmb-yt-Aibh Follow up: With: Address: When: Joaquim Paulson, [address] [place] [address] [email or web address] (1) In 3 days 10/22/2022 Comments: Follow-up with your primary care provider in 3 to 5 days. If symptoms worsen, do not improve, or new symptoms arise please report back to emergency department for further evaluation. DIAGNOSIS: BronchitisNormalFisher Quay Medical CenterED Patient Education Noteon 85-38-4566CK Patient Education NoteInfectious Disease Upper Respiratory Infection, [...] other clear broths. General instructions ? Take kpyc-cfz-rclndsh and prescription medicines only as told by [...] not have soap and water, use hand client retention specialist. ? Avoid touching your mouth, face, [...] get better within 7?10 days. ? Take lrqe-ydt-suziwmq and prescription medicines only as told by your doctor. This information is not intended to replace advice given to you by your health care provider. Make sure you discuss any questions you have with your health care provider. Document Released: 03/21/2009 Document Revised: 10/11/2019 Document Reviewed: 05/26/2018 [employer] Patient Education ? 2019 [employer] Pulmonary Medicine Acute Bronchitis, Adult Acute [...] breath. ? A fe (more content not included)...[facility] Patient Summaryon 73-12-1081CV Patient Summary [place] [id number] Patient Discharge Instructions Person Information Name: SOFIA ARANGO Age: 32 Years Arrival Date: 10/19/2022 16:52:07 Discharge Diagnosis: Bronchitis Primary Care Physician: Joaquim Osuna DO Provider Information Primary Provider: Chucho Kwon DO [employer] Custodian:None The exam and treatment you received in the Emergency Department were for an urgent problem and are not intended as complete care. It is important that you follow up with a doctor, nurse practitioner,or physician?s bilingual teacher assistant for ongoing care. If your symptoms become worse or you do not improve as expected and you are unable to reach your usual health care provider, you should return to the Emergency Department. We are available 24 hours a day. CONCHITA SOFIA Sousa has been given the following list of patient education materials, prescriptions and follow-up instructions: Follow-up Instructions: With: Address: When: Joaquim Link Nasir Paulson, [address] [place] [address] [email or web address] (1) In 3 days 10/22/2022 Comments: Follow-up [...] Acute Bronchitis, Adult; Upper Respiratory Infection, Adult, Idfh-eu-Ovau A MESSAGE TO ALL PATIENTS REGARDING OPIOIDS PRESCRIPTION OPIOIDS: WHAT YOU NEED TO KNOW Prescription opioids can be used to help relieve zzefdoft-mo-bnzzjs pain and are often prescribed following a [...] your community drug take- back program or Dwellable mail-back program, or flush them down the toilet, following guidance from the Food and Drug Administration (www.fda.gov/Drugs/ResourcesForYou). ? Visit www.cdc.gov/drugoverdose to learn about the risk (more content not included)...[facility] HospitalMICRO OTHER TESTSOrdered By: Tamar Banks on 35-65-3643Fvjnd COV Int NEG CtlPass (10/19/22 5:12 PM)NormalCIMARRON [facility] [place] Man SeroRapid COV Int POS CtlPass (10/19/22 5:12 PM)NormalCIMARRON MEMORIAL [facility] [place] Man SeroSARS-CoV+SARS-CoV-2 (COVID-19) Ag IA.rapid Ql (Resp)Not Detected (10/19/22 5:12 PM)NormalNot DetectedCIMARRON MEMORIAL HOSPITAL – [place] Man SeroRapid COVID Antigen (MC)on 49-73-0528Uhhgn COV Int NEG CtlPassNormalDiley Ridge Medical CenterComment on above:Performed By: #### [id number] #### [facility] [address] [place], [place] [address]Qljbv COV Int POS CtlPassNormalDiley Ridge Medical Center Comment on above:Performed By: #### [id number] #### [facility] [address], [place] [address]CSJA-QbR+SARS-CoV-2 (COVID-19) Ag IA.rapid Ql (Resp)Not detectedNormalNot DetectedDiley Ridge Medical CenterComment on above:Result Comment: The [employer]? System for Rapid Detection of SARS-CoV-2 is [...] is terminated or revoked sooner.Performed By: #### [id number] #### [facility] [address], [place] [address]JNOLPGEH TO INTENSIVE CARE UNIT FOR CONDITION OF INTEREST:FIND:PT:NONCleveland Clinic Mentor HospitalComment on above:Performed By: #### [id number] #### [facility] [address] [place] [address]UUREYGIJ IN A HEALTHCARE SETTING:FIND:PT:NONCleveland Clinic Mentor HospitalComment on above:Performed By: #### [id number] #### [facility] [address] [place], [place] [address]FIRST TEST FOR CONDITION OF INTEREST:FIND:PT:[facility] SouthComment on above:Performed By: #### [id number] #### [facility] [address] [place], [place] [address]HAS SYMPTOMS RELATED TO CONDITION OF INTEREST:FIND:PT:YESNormal [facility] Medical CenterComment on above:Performed By: #### [id number] #### [facility] [address] [place], [place] [address]HOSPITALIZED FOR CONDITION OF INTEREST:FIND:PT:[facility] Hospital SouthComment on above:Performed By: #### [id number] #### [facility] [address] [place] [id number] STATUS:FIND:PT:[facility] Comment on above:Performed By: #### [id number] #### [facility] [address] [place] [id number] IN A CONGREGATE CARE SETTING:FIND:PT:NONCleveland Clinic Mentor HospitalComment on above:Performed By: #### [id number] #### [facility] [address] [place] [id number] AUTO DIFFon 26-88-0299PJMC #0.0 103/ulNormal0.0-0.1[facility] Medical CenterComment on above:Performed By: #### CBC #### [facility] [address] [place] [address] [address] Marianne MojicaBasophils/100 WBC (Bld)0.4 %Normal0.2-2.0[facility] Comment on above:Performed By: #### CBC #### [facility] [address] [place] [address] Dr. Marianne Choudhary #0.1 103/ulNormal0.0-0.7The [facility] HospitalComment on above: Performed By: #### CBC #### [facility] [address] [place] [address] Dr. Marianne Rossosinophils/100 WBC (Bld)1.1 %Normal0.9-7.0[facility] Comment on above:Performed By: #### CBC #### [facility] [address] [place] [address] Dr. Marianne Rossrythrocyte distribution width (RBC) [Ratio]13.2 %Iwocjp39.0-15.0 [facility] Medical CenterComment on above:Performed By: #### CBC #### [facility] [address] [place] [address] Dr. Marianne MojicaHematocrit (Bld) [Volume fraction]33.5 %Critically low36.0-48.0 The [facility] HospitalComment on above:Performed By: #### CBC #### [facility] [address] [place] [address] Dr. Marianne MojicaHemoglobin (Bld) [Mass/Vol]11.1 g/dLCritically low12.0-16.0[facility] Medical CenterComment on above:Performed By: #### CBC #### [facility] [address] [place] [address] Dr. Marianne Hernandez #0.05 10e3/ulCritically high0.00-0.03[facility] [facility] Comment on above:Performed By: #### CBC #### [facility] [address] [place] [address] Dr. Yilan ChangIG %0.5 %Normal0.0-0.5The [facility] HospitalComment on above: Performed By: #### CBC #### [facility] [address] [place] [address] Dr. Marianne Matthews #2.8 103/ulNormal1.2-3.8The [facility] HospitalComment on above:Performed By: #### CBC #### [facility] [address] [place] [address] Dr. Marianne Silverhocytes/100 WBC (Bld)29.9 %Eqasxf51.5-60.0The [facility] HospitalComment on above:Performed By: #### CBC #### [facility] [address] [place] [address] Dr. Marianne Vasquez DIFF REQNONormalThe [facility] HospitalComment on above: Performed By: #### CBC #### [facility] [address] [place] [address] Dr. Marianne Veloz (RBC) [Entitic mass]31.6 lfFbsgpv38.7-34.0The [facility] HospitalComment on above:Performed By: #### CBC #### [facility] [address] [place] [address] Dr. Marianne Peacock (RBC) [Mass/Vol]33.1 g/iNLfdtvz71.9-35.2The [facility] HospitalComment on above:Performed By: #### CBC #### [facility] [address] [place] [address] Dr. Marianne Oliva (RBC) [Entitic vol]95.4 rGYjplzo39.0-99.0The [facility] HospitalComment on above:Performed By: #### CBC #### [facility] [address] [place] [address] Dr. Marianne Tubbs #0.7 103/ulNormal0.3-0.8The [facility] HospitalComment on above:Performed By: #### CBC #### [facility] [address] [place] [address] Dr. Yilan ChangMonocytes/100 WBC (Bld)7.3 %Normal1.7-12.0The [facility] Comment on above:Performed By: #### CBC #### [facility] [address] [place] [address] Dr. Marianne Dacosta #5.6 103/ulNormal1.4-6.5The [facility] HospitalComment on above:Performed By: #### CBC #### [facility] [address] [place] [address] Dr. Marianne Smythutrophils/100 WBC (Bld)60.8 %Zuzynh80.0-75.0The [facility] HospitalComment on above:Performed By: #### CBC #### [facility] [address] [place] [address] Dr. Marianne Paz mean volume (Bld) [Entitic vol]9.8 fLNormal9.5-13.5The [facility] HospitalComment on above:Performed By: #### CBC #### [facility] [address] [place] [address] Dr. Marianne MojicaPLT188 103/yuHfeubd455-987Zaz [facility] HospitalComment on above: Performed By: #### CBC #### [facility] [address] [place] [address] Dr. Marianne SanchezC3.51 106/ulCritically low4.20-5.40The [facility] HospitalComment on above:Performed By: #### CBC #### [facility] [address] [place] [address] Dr. Marianne MojicaWBC9.2 103/ulNormal4.0-11.0The [facility] HospitalComment on above: Performed By: #### CBC #### [facility] [address] [place] [address] Dr. Marianne Adorno AUTO DIFFon [id number] #0.0 103/ulNormal0.0-0.1The [facility] HospitalComment on above:Performed By: #### CBC #### [facility] [address] [place] [address] Dr. Marianne MojicaBasophils/100 WBC (Bld)0.2 %Normal0.2-2.0The [facility] Comment on above:Performed By: #### CBC #### [facility] [address] [place] [address] Dr. Marianne Choudhary #0.1 103/ulNormal0.0-0.7The [facility] HospitalComment on above: Performed By: #### CBC #### [facility] [address] [place] [address] Dr. Marianne Rossosinophils/100 WBC (Bld)0.6 %Critically low0.9-7.0The [facility] HospitalComment on above:Performed By: #### CBC #### [facility] [address] [place] [address] Dr. Marianne Rossrythrocyte distribution width (RBC) [Ratio]13.2 %Zywekh52.0-15.0 The [facility] HospitalComment on above:Performed By: #### CBC #### [facility] [address] [place] [address] Dr. Marianne MojicaHematocrit (Bld) [Volume fraction]37.2 %Tmnljj31.0-48.0The [facility] HospitalComment on above:Performed By: #### CBC #### [facility] [address] [place] [address] Dr. Marianne MojicaHemoglobin (Bld) [Mass/Vol]12.2 g/wKTnglyz99.0-16.0The [facility] HospitalComment on above:Performed By: #### CBC #### [facility] [address] [place] [address] Dr. Marianne Hernandez #0.04 10e3/ulCritically high0.00-0.03The [facility] Comment on above:Performed By: #### CBC #### [facility] [address] [place] [address] Dr. Marianne Hernandez %0.4 %Normal0.0-0.5The [facility] HospitalComment on above: Performed By: #### CBC #### [facility] [address] [address] [address] Marianne Matthews #2.6 103/ulNormal1.2-3.8The [facility] HospitalComment on above:Performed By: #### CBC #### [facility] [address] [place] [address] Dr. Marianne Olguinmphocytes/100 WBC (Bld)27.0 %Afzeng76.5-60.0The [facility] HospitalComment on above:Performed By: #### CBC #### [facility] [address] [place] [address] Dr. Marianne Vasquez DIFF REQNONormalThe [facility] HospitalComment on above: Performed By: #### CBC #### [facility] [address] [place] [address] Dr. Marianne Peacock (RBC) [Entitic mass]31.1 qtDwgjsm26.7-34.0The [facility] HospitalComment on above:Performed By: #### CBC #### [facility] [address] [place] [address] Dr. Marianne Peacock (RBC) [Mass/Vol]32.8 g/zCCuwmzw36.9-35.2The [facility] HospitalComment on above:Performed By: #### CBC #### [facility] [address] [place] [address] Dr. Marianne Peacock (RBC) [Entitic vol]94.9 qGHqlbnp15.0-99.0The [facility] HospitalComment on above:Performed By: #### CBC #### [facility] [address] [place] [address] Dr. Marianne Tubbs #0.8 103/ulNormal0.3-0.8The [facility] HospitalComment on above:Performed By: #### CBC #### [facility] [address] [place] [address] Dr. Marianne Lyonsocytes/100 WBC (Bld)7.8 %Normal1.7-12.0The [facility] Comment on above:Performed By: #### CBC #### [facility] [address] [place] [address] Dr. Marianne SmythUT #6.2 103/ulNormal1.4-6.5The [facility] HospitalComment on above:Performed By: #### CBC #### [facility] [address] [place] [address] Dr. Marianne Smythutrophils/100 WBC (Bld)64.0 %Krzgnh84.0-75.0The [facility] HospitalComment on above:Performed By: #### CBC #### [facility] [address] [place] [address] Dr. Marianne MojicaPlatelet mean volume (Bld) [Entitic vol]10.5 fLNormal9.5-13.5The [facility] HospitalComment on above:Performed By: #### CBC #### [facility] [address] [place] [address] Dr. Marianne MojicaPLT210 103/hrDojqyz429-332Uki [facility] HospitalComment on above: Performed By: #### CBC #### [facility] [address] [place] [address] Dr. Marianne MojicaRBC3.92 106/ulCritically low4.20-5.40The [facility] on above:Performed By: #### CBC #### [facility] [address] [place] [address] Dr. Marianne MojicaWBC9.7 103/ulNormal4.0-11.0The [facility] HospitalComment on above: Performed By: #### CBC #### [facility] [address] [place] [address] Dr. Marianne MojicaCovid-19 PCR (CVDTB)on [id number]-CoV-2 (COVID-19) RNA VIRA+probe Ql (Unsp spec)Not detectedNormalNOT DETECTEDThe [facility] Comment on above:Result Comment: When diagnostic testing [...] for this test is supported by the [employer] of Health and Human Service's declaration that [...] longer be used).Performed By: #### RPRQ #### [facility] [address] [place] [address] Carlos KarenDRUG SCREEN RAPID (URINE)on [id number]LSya [facility]vue HospitalComment on above:Performed By: #### RPRQ #### [facility] [address] [place] [address] Carlos KarenBARNegativeNormalNEGATIVEOur Lady Of Mercy Hospital - Anderson HospitalComment on above: Performed By: #### RPRQ #### [facility] [address] [place] [address] Carlos KarenBUPNegativeNormalNEGATIVEUniversity Hospitals Port[facility] Medical CenterComment on above: Performed By: #### RPRQ #### [facility] [address] [place] [address] Carlos KarenBZONegativeNormalNEGATIVEOur Lady Of [facility] - Anderson HospitalComment on above: Performed By: #### RPRQ #### [facility] [address] [place] [address] Carlos KarenCOCNegativeNormalNEGATIVEOur Lady Of Mercy Hospital - Anderson HospitalComment on above: Performed By: #### RPRQ #### [facility] [address] [place] [address] Carlos KarenCUT-OFFSSEE BELOWNormalThe [facility] HospitalComment on above:Result Comment: AMP (Amphetamine): 500ng/mL, BAR (Barbituates): 200 ng/mL, BZO (Benzodiazepines): 150 ng/mL, BUP (Buprenorphine): 10 ng/mL, BREE (Cocaine): 150 ng/mL, mAMP (Methamphetamine): 500 ng/mL, MTD (Methadone): 200 ng/mL, OPI (Opiates): 100 ng/mL, OXY (Oxycodone): 100 ng/mL, PCP (Phencyclidine): 25 ng/mL, PPX (Propoxyphene): 300 ng/mL, THC (Cannabinoids): 50 ng/mL, TCA (Trycyclic Antidepressants): 300 ng/mLPerformed By: #### RPRQ #### [facility] [address] [place] [address] Carlos KarenDRUG CUT HEADERDRUG CLASS TEST SYSTEM CUT-OFF CONCENTRATIONS ARE FOLLOWS:NormalThe [facility] HospitalComment on above:Performed By: #### RPRQ #### [facility] [address] [place] [address] Carlos KarenmAMPNegativeNormalNEGATIVEOur Lady Of [facility] Hospital - Anderson HospitalComment on above: Performed By: #### RPRQ #### [facility] [address] [place] [address] Carlos KarenMTDNegativeNormalNEGATIVEUniversity Hospitals [facility] Medical CenterComment on above: Performed By: #### RPRQ #### [facility] [address] [place] [address] Carlos KarenOPINegativeNormalNEGATIVEUniversity Hospitals [facility] Medical CenterComment on above: Performed By: #### RPRQ #### [facility] [address] [place] [address] Carlos KarenOXYNegativeNormalNEGATIVEUniversity Hospitals [facility] Medical CenterComment on above: Performed By: #### RPRQ #### [facility] [address] [place] [address] Carlos KarenPCPNegativeNormalNEGATIVEOur [facility] Of [facility] HospitalComment on above: Performed By: #### RPRQ #### [facility] [address] [place] [address] Carlos KarenPPXNegativeNormalNEGATIVEOur Lady Of [facility] - Anderson HospitalComment on above: Performed By: #### RPRQ #### [facility] [address] [address] Carlos GarridoenTCANegativeNormalNEGATIVEUniversity Hospitals [facility] Medical CenterComment on above: Performed By: #### RPRQ #### [facility] [address] [place] [address] Carlos GarridoenTHCNegativeNormalNEGATIVEUniversity Hospitals [facility] CenterComment on above: Performed By: #### RPRQ #### [facility] [address] [place] [address] Carlos GarridoenTYPE AND SCREENon [id number] AND SCREENNegativeNormUniversity Hospitals Conneaut Medical CenterComment on above:Performed By: #### RPRQ #### [facility] [address] [place] [address] Carlos GarridoenUS PREG BIOPHY W NON STRESSon [id number] PREG BIOPHY W NON STRESS EXAMINATION: US [...] Electronically authenticated by: AYDE MIN Date: 2021-10-07 13:52[facility] CenterCHLAMYDIA/GONOCOCCUS VIRA (SWAB/URINE/PAPon [id number] trachomatis, NAANegativeNormalNegativeUniversity Hospitals [facility] Medical CenterComment on above: Performed By: #### CT/NGNA #### [facility] [address] [place] [address] Dr. Marianne Smythisseria gonorrhoeae, NAANegativeNormalNegativeUniversity Hospitals [facility] Medical CenterComment on above:Performed By: #### CT/NGNA #### [facility] [address] [place] [address] Dr. Marianne MojicaVAGINITIS/VAGINOSIS DNA PROBEon [id number] speciesNegative NormalNegativeUniversity Hospitals Portage Medical CenterComment on above:Performed By: #### RUBIGG #### [facility] [address] [place] [address] Carlos GarridoenGardnerella vaginalisNegativeBuffaloNegativeUniversity Hospitals [facility] Comment on above:Performed By: #### RUBIGG #### [facility] [address] [place] [address] Carlos KarenTrichomonas vaginalisNegativeBuffaloNegativeUniversity Hospitals [facility] Comment on above:Performed By: #### RUBIGG #### [facility] [address] [place] [address] Carlos KarenGROUP B STREP CULTUREon 10-02-2021. agalactiae Ag Ql (Unsp spec) Culture Observations: NEGATIVE FOR GROUP B STREPTOCOCCUS.NormalThe [facility] HospitalComment on above: Performed By: #### GBSCX #### [facility] [address] [place] [address] Dr. Marianne Figueroa PREG PLACENTAon [id number] PREG PLACENTAEXAMINATION: US PREG PLACENTA HISTORY: Placenta previa without hemorrhage COMPARISON: Ultrasound anatomy 06/04/2021 FINDINGS: PLACENTA: Posterior with lower margin 2.5 cm from internal os. Several small anechoic areas within placenta favoring venous lakes. CERVIX LENGTH: 4.6 cm in length; closed. HEART RATE: 126 bpm OTHER: None. IMPRESSION: 1. Posterior placenta which is no longer low-lying. Electronically authenticated by: AYDE MIN Date: 2021-07-29 12:05[facility] Medical CenterGLUCOSE - 1HRon [id number] [Mass/Vol]71 mg/dLCritically yaf80-428NdzUniversity Hospitals Portage Medical CenterComment on above:Performed By: #### RUBIGG #### [facility] [address] [place] [address] Carlos KarenHEMOGRAM AND PLATELon [id number] (Bld) [Volume fraction] 36.2 %Glrdyq73.0-48.0The [facility] HospitalComment on above:Performed By: #### RUBIGG #### [facility] [address] [place] [address] Carlos KarenHemoglobin (Bld) [Mass/Vol]11.8 g/dLCritically low12.0-16.0[facility] CenterComment on above:Performed By: #### FLYG #### [facility] [address] [place] [address] Carlos KarenH (RBC) [Entitic mass]31.4 cdClpsdx30.7-34.0[facility] Comment on above:Performed By: #### FLYG #### [facility] [address] [place] [address] Carlos KarenMCHC (RBC) [Mass/Vol]32.6 g/cSOysbno90.9-35.2[facility] Comment on above:Performed By: #### FLYG #### [facility] [address] [place] [address] Carlos GarridoenMCV (RBC) [Entitic vol]96.3 sFFzcrbn67.0-99.0[facility] Comment on above:Performed By: #### FLYG #### [facility] [address] [place] [address] Carlos BpbofBFF098 103/nfOoheiy743-408Oob [facility] HospitalComment on above: Performed By: #### FLYG #### [facility] [address] [place] [address] Carlos KarenRBC3.76 106/ulCritically low4.20-5.40The [facility] HospitalComment on above:Performed By: #### FLYG #### [facility] [address] [place] [address] Carlos KarenWBC9.1 103/ulNormal4.0-11.0[facility] CenterComment on above: Performed By: #### FLYG #### [facility] [address] [place] [address] Carlos GarridoenUS PREG ANATOMY SINGLEon [id number] PREG ANATOMY SINGLE EXAMINATION: US PREG ANATOMY [...] 59th percentile by ultrasound and expected FL/AC: 0.862144 FL/BPD: 0.942334 HC/AC: 1.555112 GESTATIONAL AGE: Age by EDC: 20 weeks, 0 days NELA by EDC: 10/22/2021 Age by current US: 20 weeks, 0 days NELA by current US: 10/22/2021 IMPRESSION: 1. Single live intrauterine with growth detailed above. 2. Low-lying fundal/posterior placenta. Electronically authenticated by: AYDE MIN Date: 2021-06-04 12:07[facility] CenterAF MATERNAL FOR SPINA BIFIDAon 91-23-0686SIK MoM0.95NoAvita Health System Galion HospitalComment on above:Performed By: #### AFPMAT #### [facility] [address] [address] Carlos KarenAFP Value37.7 ng/mLNGreen Cross HospitalComment on above: Performed By: #### AFPMAT #### [facility] [address] [address] Carlos KarenAFP, Serum for Spina BifidaReportNoAvita Health System Galion HospitalComment on above:Performed By: #### AFPMAT #### [facility] [address] [place] [address] Carlos KarenCommentUniversity Hospitals Geauga Medical CenterCommclaren [place] on above:Result Comment: Ivy Lincoln, Ph.D., [facility] Director . References: Available Upon Request. . Multiples Of Median Cutoffs For AFP Elevations Sommer 2.5 Black 2.8 IDD 2.0 Twins 4.5 Abbreviation Definitions IDD - Insulin Dep Diabetes OSBR - Open Spina Bifida Risk . For further inquiries contact [employer] [facility] at [phone].Performed By: #### AFPMAT #### [facility] [address] [place] [address] Carlos Landast Age Collection Date17.6 weeksZ[facility] on above:Performed By: #### AFPMAT #### [facility] [address] [place] [address] Carlosgaurang GarridoenGestat, Age Based onUltrasMemorial Health System Selby General HospitalCommclaren [place] on above:Result Comment: 11:0 on 04/02/2021 Recalculations are not recommended when gestational dating by LMP and ultrasound are within 10 days.Performed By: #### AFPMAT #### [facility] [address] [place] [address] Carlos KarenInsulin Dep DiabetesNoNormalUniversity Hospitals [facility] Medical CenterCommclaren central [place] on above: Performed By: #### AFPMAT #### [facility] [address] [place] [address] Carlos KarenInterpretationUniversity Hospitals Geauga Medical CenterCommclaren [place] on above: Result Comment: Interpretation: Screen Negative [...] Customer Services to discuss available options. The [employer] recommends amniocentesis be offered to women age 35 and older.Performed By: #### AFPMAT #### [facility] [address] [address] Carlos KarenMaternal Age at EDD[age] yrNoAvita Health System Galion HospitalComment on above:Performed By: #### AFPMAT #### [facility] [address] [address] Carlos KarenMultiple GestationNoNGreen Cross HospitalComment on above: Performed By: #### AFPMAT #### [facility] [address] [address] Carlos KarenOSBR Risk 1 [id number] Health Upper Valley Medical CenterComment on above: Performed By: #### AFPMAT #### [facility] [address] [place] [address] Carlos KarenPDF.NormalUniversity Hospitals Portage Medical CenterComment on above:Performed By: #### AFPMAT #### [facility] [address] [address] Carols KarenRaceCaucasianNGreen Cross HospitalComment on above:Performed By: #### AFPMAT #### [facility] [address] [place] [address] Carlos KarenTest Results:NegativePremier Health Upper Valley Medical CenterComment on above: Performed By: #### AFPMAT #### [facility] [address] [address] Carlos KarenCult,Urineon [id number],UrineSpecimen Description .Random Urine Special Requests NOT REPORTED Culture NO GROWTH Report Status FINAL 05/01/2021NoPremier HealthComment on above: Performed By: #### URC #### [facility] [address] [place] [address] Cable Reeler: Sekou Fraser MD [facility] [address] [place] [address] Cable Reeler: Campos Chandra MDUS PREG PLACENTAon [id number] PREG PLACENTAEXAM: US PREG PLACENTA HISTORY: Abnormal [...] Electronically authenticated by: YURIY WISE Date: 2021-04-30 23:35[facility] Medical CenterABO/RHOrdered By: Venecia Patterson on [id number]/RhPositiveOhiohealth Grove City Methodist Hospital [employer] Phone: [facility] Phone: aBO/Rh(D)on [id number]/Rh(D)PositiveNormBarberton Citizens HospitalComment on above:Performed By: #### ABRH #### [facility] [address] [place] [address] Cable Reeler: Campos Chandra [facility] Auto DifferentialOrdered By: Venecia Patterson on [id number] Eos #0.00[facility] [employer] Phone: absolute Immature GranulocyteNOT REPORTEDOhiohealth Grove City Methodist Hospital [employer] Phone: absolute Lymph #2.70[facility] Phone: absolute [place] #0.50[facility] [employer] Phone: basophils (Bld) [#/Vol]0.00 10*3/uLCleveland ClinicWibbitz Phone: basophils/100 WBC (Bld)0 %0 - 2 %[facility] TownshipJK [employer] Phone: differential TypeYESMerc [employer] Phone: eosinophils/100 WBC (Bld)0 %0 - 5 %[employer] Phone: Hematocrit (Bld) [Volume fraction]36.7 %36 - 46 %The [employer] Phone: Hemoglobin.gastrointestinal spec 1 Ql (Stl)12.5 g/dL 12.0 - 16.0 g/dLThe [employer] Phone: Immature GranulocytesNOT REPORTED0 %[employer] Phone: lymphocytes/100 WBC (Bld)30 %15 - 40 %[employer] Phone: MCH (RBC) [Entitic mass]30.6 pg26 - 34 pgThe [employer] Phone: MCHC (RBC) [Mass/Vol]34.2 g/dL31 - 37 g/dLThe [employer] Phone: MCV (RBC) [Entitic vol]89.7 fL80 - 100 fLThe [employer] Phone: Monocytes/100 WBC (Bld)5 %4 - 8 %The [employer] Phone: NRBC AutomatedNOT REPORTEDper 100 WBCThe [employer] Phone: platelet distribution width (Bld) [Ratio]12.8 %12.1 - 15.2 %The [employer] Phone: platelet EstimateNOT REPORTEDMerWibbitz Phone: platelet mean volume (Bld) [Entitic vol]NOT REPORTED 6.0 - 12.0 fLThe [employer] Phone: platelets (Bld) [#/Vol]271 10*3/uLThe [employer] Phone: RBC (Bld) [#/Vol]4.09 10*6/uL4.0 - 5.2 m/SMS [employer] Phone: RBC (Bld) [#/Vol]NOT REPORTEDCleveland ClinicWibbitz Phone: segmented neutrophils/100 WBC (Bld)65 %47 - 75 %[facility] TownshipJK [employer] Phone: segs Absolute5.70[facility] [employer] Phone: WBC (Bld) [#/Vol]8.9 10*3/uLCleveland ClinicWibbitz Phone: WBC (Bld) [#/Vol]NOT REPORTEDCleveland ClinicWibbitz Phone: [facility] [employer] Phone: cBC with Diffon [id number]. Basophil0.00 k/uLNormal 0.0-0.2MWilson Memorial HospitalComment on above:Performed By: #### MG, CMPX, CDP #### [facility] [address] [place] [address] Cable Reeler: Eboni Wong.Neutrophil (Seg)5.70 k/uLNormal2.5-7.0M[facility] Osteopathic ClinicComment on above:Performed By: #### MG, CMPX, CDP #### [facility] [address] [place] [address] Cable Reeler: Nilda Wong Diff PerformedYESNoPremier Health Comment on above:Performed By: #### MG, CMPX, CDP #### [facility] [address] [place] [address] Cable Reeler: Campos Chandra MDBasophils/100 WBC (Bld)0 %Normal0-2MWilson Memorial HospitalComment on above:Performed By: #### MG, CMPX, CDP #### [facility] [address] [place] [id number] Cable Reeler: Campos Chandra MDEosinophils (Bld) [#/Vol]0.00 10*3/uLNormal0.0-0.4 [facility] Osteopathic ClinicComment on above:Performed By: #### MG, CMPX, CDP #### [facility] [address] [place] [phone] Cable Reeler: Campos Chandra MDEosinophils/100 WBC (Bld)0 %Normal0-5M[facility] Osteopathic ClinicComment on above:Performed By: #### MG, CMPX, CDP #### [facility] [address] [place] [address] Cable Reeler: Campos Chandra MDErythrocyte distribution width (RBC) [Ratio]12.8 % Bizytg50.1-15.2MWilson Memorial HospitalComment on above:Performed By: #### MG, CMPX, CDP #### [facility] [address] [place] [address] Cable Reeler: Campos Chandra MDHematocrit (Bld) [Volume fraction]36.7 %Normal 36-46[facility] Osteopathic ClinicComment on above:Performed By: #### MG, CMPX, CDP #### [facility] [address] [place] [address] Cable Reeler: Campos Chandra MDHemoglobin (Bld) [Mass/Vol]12.5 g/dLNormal 12.0-16.0[facility] Osteopathic ClinicComment on above:Performed By: #### MG, CMPX, CDP #### [facility] [address] [place] [phone] Cable Reeler: Campos Chandra MDLymphocytes (Bld) [#/Vol]2.70 10*3/uLNormal1.0-4.8 [facility] ClinicComment on above:Performed By: #### MG, CMPX, CDP #### [facility] [address] [place] [address] Cable Reeler: Abner Wongmphocytes/100 WBC (Bld)30 %Euygqz89-82AdwwaMarietta Osteopathic ClinicComment on above:Performed By: #### MG, CMPX, CDP #### [facility] [address] [place] [phone] Cable Reeler: MELITON WongCH (RBC) [Entitic mass]30.6 ukCxjpba04-72JupkaMarietta Osteopathic ClinicComment on above:Performed By: #### MG, CMPX, CDP #### [facility] [address] [place] [address] Cable Reeler: MELITON WongCHC (RBC) [Mass/Vol]34.2 g/dXRwkjum64-28SfjngMarietta Osteopathic ClinicComment on above:Performed By: #### MG, CMPX, CDP #### [facility] [address] [place] [phone] Cable Reeler: MELITON WongCV (RBC) [Entitic vol]89.7 nZDbjmrg23-432SqyyjMarietta Osteopathic ClinicComment on above:Performed By: #### MG, CMPX, CDP #### [facility] [address] [place] [address] Cable Reeler: MELITON Wongonocytes (Bld) [#/Vol]0.50 10*3/uLNormal0.0-1.0 [facility] on above:Performed By: #### MG, CMPX, CDP #### [facility] [address] [place] [address] Cable Reeler: MELITON Wongonocytes/100 WBC (Bld)5 %Normal4-8[facility] Osteopathic ClinicComment on above:Performed By: #### MG, CMPX, CDP #### [facility] [address] [place] [address] Cable Reeler: Promise Wong (Seg)65 %Hpuypw06-46CtagyMarietta Osteopathic ClinicComment on above:Performed By: #### MG, CMPX, CDP #### [facility] [address] [place] [address] Cable Reeler: Kristin Wong (Bld) [#/Vol]271 10*3/oNXutidd005-409 [facility] ClinicComment on above:Performed By: #### MG, CMPX, CDP #### [facility] [address] [place] [address] Cable Reeler: NORIS Wong (d) [#/Vol]4.09 10*6/uLNormal4.0-5.2MWilson Memorial HospitalComment on above:Performed By: #### MG, CMPX, CDP #### [facility] [address] [place] [address] Cable Reeler: LETTY Wong (d) [#/Vol]8.9 10*3/uLNormal3.5-11.0[facility] Northment on above:Performed By: #### MG, CMPX, CDP #### [facility] [address] [place] [address] Cable Reeler: Eboni Wong.Imm.GranulocyteNOT REPORTEDNormal0.00-0.30 [facility] on above:Performed By: #### MG, CMPX, CDP #### [facility] [address] [place] [address] Cable Reeler: Macario Wong GranulocyteNOT KGQIVRAMJsckew7XqzlpMarietta Osteopathic ClinicComment on above:Performed By: #### MG, CMPX, CDP #### [facility] [address] [place], [place] [phone] Cable Reeler: MELITON WongPVNOT REPORTEDNormal6.0-12.0[facility] Osteopathic ClinicComment on above:Performed By: #### MG, CMPX, CDP #### [facility] [address] [place], [place] 2018190 Cable Reeler: SEBASTIAN Wong AutomatedNOT REPORTEDNormalMarietta Osteopathic ClinicComment on above:Performed By: #### MG, CMPX, CDP #### [facility] [address] [place], [place] [phone] Cable Reeler: Minh Wongtelet EstimateNOT REPORTEDNormBarberton Citizens HospitalComment on above:Performed By: #### MG, CMPX, CDP #### [facility] [address] [place], [place] [phone] Cable Reeler: NORIS Wong morphology finding Nom (Bld)NOT REPORTEDNormal [facility] Osteopathic ClinicComment on above:Performed By: #### MG, CMPX, CDP #### [facility] [address] [place] [address] Cable Reeler: LETTY Wong MorphologyNOT REPORTEDNoPremier HealthComment on above:Performed By: #### MG, CMPX, CDP #### [facility] [address] [place] [phone] Cable Reeler: NITESH Wongcedar city hospital Metabolic Pr/rfx MGon [id number] [Moles/Vol]3.5 mmol/LLow3.7-5.3[facility] Memorial Community HospitalComment on above:Performed By: #### MG, CMPX, CDP #### [facility] [address] [place] [address] Cable Reeler: Campos Chandra MD(cont.)[facility] St. John Medical CenterComment on above:Result Comment: Average GFR for 30-39 years old: 107 mL/min/1.73sq m Chronic Kidney Disease: <60 mL/min/1.73sq m Kidney failure: <15 mL/min/1.73sq m eGFR calculated using average adult body mass. Additional eGFR calculator available at: http://www.[employer].com/multiple_crcl_2012.htmPerformed By: #### MG, CMPX, CDP #### [facility] [address] [place] [phone] Cable Reeler: Campos Chandra MDAlbumin [Mass/Vol]3.8 g/dLNormal3.5-5.2MWilson Memorial HospitalComment on above:Performed By: #### MG, CMPX, CDP #### [facility] [address] [place] [address] Cable Reeler: Campos Chandra MDAlkaline Phos56 U/WBfprkz08-902DobyvMarietta Osteopathic ClinicComment on above:Performed By: #### MG, CMPX, CDP #### [facility] [address] [place] [address] Cable Reeler: Campos Chandra MDALT [Catalytic activity/Vol]13 U/LNormal5-33[facility] Osteopathic ClinicCommclaren central [place] on above:Performed By: #### MG, CMPX, CDP #### [facility] [address] [place] [address] Cable Reeler: Campos Chandra MDAnion gap [Moles/Vol]10 mmol/LNormal9-17[facility] Osteopathic ClinicCommclaren central [place] on above:Performed By: #### MG, CMPX, CDP #### [facility] [address] [place] [address] Cable Reeler: Campos Chandra MDAST [Catalytic activity/Vol]16 U/LNormal<32[facility] ClinicCommclaren central [place] on above:Performed By: #### MG, CMPX, CDP #### [facility] [address] [place] [address] Cable Reeler: Campos Chandra MDBilirubin [Mass/Vol]0.23 mg/dLLow0.30-1.20[facility]opathic ClinicComment on above:Performed By: #### MG, CMPX, CDP #### [facility] [address] [place] [phone] Cable Reeler: Campos Chandra MDBUN/CRE Vvjpo58Bnyplk3-51Xqrwu [facility] Comment on above:Performed By: #### MG, CMPX, CDP #### [facility] [address] [place] [address] Cable Reeler: NITESH Wongalcium [Mass/Vol]9.2 mg/dLNormal8.6-10.4[facility] ClinicComment on above:Performed By: #### MG, CMPX, CDP #### [facility] [address] [place] [address] Cable Reeler: NITESH Wonghloride [Moles/Vol]105 mmol/DOyohvl02-751BmoutMarietta Osteopathic ClinicComment on above:Performed By: #### MG, CMPX, CDP #### [facility] [address] [place] [address] Cable Reeler: Campos Chandra MDCO2 [Moles/Vol]23 mmol/KMzfzye47-36OzhjuMarietta Osteopathic ClinicComment on above:Performed By: #### MG, CMPX, CDP #### [facility] [address] [place] [phone] Cable Reeler: NITESH Wongreatinine [Mass/Vol]0.44 mg/dLLow0.50-0.90[facility]opathic ClinicComment on above:Performed By: #### MG, CMPX, CDP #### [facility] [address] [place], [place] [phone] Cable Reeler: Campos Sturtz, MDGFR, Amer>60Normal>60[facility] Comment on above:Performed By: #### MG, CMPX, CDP #### [facility] [address] [place] [address] Cable Reeler: Campos Chandra MDGFR,non Amer>60Normal>60[facility] Health HospitalComment on above:Performed By: #### MG, CMPX, CDP #### [facility] [address] [place] [address] Cable Reeler: Campos Chandra MDGlucose [Mass/Vol]90 mg/mTCnbmyg14-32FsjxaWilson Memorial HospitalComment on above:Performed By: #### MG, CMPX, CDP #### [facility] [address] [place] [address] Cable Reeler: Campos Chandra MDProtein [Mass/Vol]7.0 g/dLNormal6.4-8.3MC[facility] Clinic [facility] HospitalComment on above:Performed By: #### MG, CMPX, CDP #### [facility] [address] [place] [address] Cable Reeler: MARCK Wongodium [Moles/Vol]138 mmol/GXnsvpk070-755HnpkgMarietta Osteopathic ClinicComment on above:Performed By: #### MG, CMPX, CDP #### [facility] [address] [place] [address] Cable Reeler: Campos Chandra MDUrea nitrogen [Mass/Vol]8 mg/dLNormal6-20[facility] ClinicComment on above:Performed By: #### MG, CMPX, CDP #### [facility] [address] [place] [address] Cable Reeler: Campos Chandra MDAlbumin/Glob RatioNOT REPORTEDNormal1.0-2.5MerSeaview HospitalComment on above:Performed By: #### MG, CMPX, CDP #### [facility] [address] [place] [address] Cable Reeler: MARCK Wongtaging:NOT REPORTEDNormBarberton Citizens Hospital Comment on above:Performed By: #### MG, CMPX, CDP #### [facility] [address] [place] [address] Cable Reeler: NITESH Wongomprehensive Metabolic Panel w/ Reflex to MG Ordered By: Venecia Patterson on 16-19-8601Csnhnbt [Mass/Vol]3.8 g/dL3.5 - 5.2 g/dL [facility] [employer] Phone: Clbumin/Globulin RatioNOT REPORTEDOhiohealth Grove City Methodist Hospital [employer] Work Phone: ZLP (Bld) [Catalytic activity/Vol]56 U/L35 - 104 U/L [facility] [employer] Phone: FLT [Catalytic activity/Vol]13 U/L5 - 33 U/LMriverview health institute [employer] Work Phone: Xnion gap [Moles/Vol]10 mmol/L9 - 17 mmol/LMriverview health institute [employer] Work Phone: AST [Catalytic activity/Vol]16 U/L<32[facility] Phone: Eilirubin [Mass/Vol]0.23 mg/dLLow0.30 - 1.20 mg/dL [facility] TownshipJK [employer] Phone: Falcium [Mass/Vol]9.2 mg/dL8.6 - 10.4 mg/dLCleveland ClinicWibbitz Phone: Whloride [Moles/Vol]105 mmol/L98 - 107 mmol/LMkettering health miamisburgBOS [employer] Work Phone: JO2 [Moles/Vol]23 mmol/L20 - 31 mmol/LMkettering health miamisburgBOS [employer] Work Phone: creatinine [Mass/Vol]0.44 mg/dLLow0.50 - 0.90 mg/dL MercJK [employer] Phone: Free PSA/Total PSA [Mass fraction]7.0 g/dL6.4 - 8.3 g/dLCleveland ClinicWibbitz Phone: GFR >60>60 mL/minCleveland ClinicWibbitz Phone: GFR Non->60>60 mL/minCleveland ClinicWibbitz Phone: GFR/1.73 sq M.predicted MDRD (S/P/Bld) [Vol rate/Area] [facility] TownshipJK [employer] Phone: comment on above:Average GFR for 30-39 years old: 107 mL/min/1.73sq m Chronic Kidney Disease: <60 mL/min/1.73sq m Kidney failure: <15 mL/min/1.73sq m eGFR calculated using average adult body mass. Additional eGFR calculator available at: http://www.[employer]/multiple_crcl_2012.htm GFR/1.73 sq M.predicted MDRD (S/P/Bld) [Vol rate/Area]NOT REPORTEDCleveland ClinicWibbitz Phone: Glucose [Mass/Vol]90 mg/dL70 - 99 mg/dLCleveland ClinicWibbitz Phone: Interpretation and review of laboratory results AbnormalCleveland ClinicWibbitz Phone: potassium [Moles/Vol]3.5 mmol/LLow3.7 - 5.3 mmol/L [facility] TownshipJK [employer] Phone: sodium [Moles/Vol]138 mmol/L135 - 144 mmol/LMriverview health institute [employer] Phone: Urea nitrogen (BldV) [Mass/Vol]8 mg/dL6 - 20 mg/dL [facility] TownshipJK [employer] Phone: Urea nitrogen/Creatinine (Bld) [Mass ratio]18[facility] Phone: [facility] Phone: drug Scr, Abuse, Uron [id number](s),Ur NegativeNormalNEGMercy Conrad HospitalComment on above:Result Comment: (Positive cutoff 500 ng/mL)Performed By: #### UMICAO, UA, DIOGENES #### [facility] [address] [place] [address] Cable Reeler: Campos Chandra MDBarbiturate(s),UrNegativeNormalNEGMercy Tyler Holmes Memorial Hospital on above:Result Comment: (Positive cutoff 200 ng/mL)Performed By: #### UMICAO, UA, DIOGENES #### [facility] [address] [place] [address] Cable Reeler: Campos Chandra MDBenzodiazepine(s)NegativeNormalNEGProvidence Hospital on above:Result Comment: (Positive cutoff 150 ng/mL)Performed By: #### UMICAO, UA, DIOGENES #### [facility] [address] [place] [address] Cable Reeler: NITESH Wongannabinoid(s),UrNegativeNormalNEGMerOhioHealth Nelsonville Health Center on above:Result Comment: (Positive cutoff 50 ng/mL)Performed By: #### UMICAO, UA, DIOGENES #### [facility] [address] [place] [address] Cable Reeler: NITESH Wongocaine MetaboliteNegativeNormalNEGMerSeaview HospitalCommclaren central michigan on above:Result Comment: (Positive cutoff 150 ng/mL)Performed By: #### UMICAO, UA, DIOGENES #### [facility] [address] [place] [address] Cable Reeler: MELITON Wongethadone Ql (U)NegativeNormalNEGMercy Conrad HospitalCommclaren central michigan on above:Result Comment: (Positive cutoff 200 ng/mL)Performed By: #### UMICAO, UA, DIOGENES #### [facility] [address] [place], [place] [phone] Cable Reeler: MELITON Wongethamphetamine, UrNegativeNormalNEGProvidence Hospital on above:Result Comment: (Positive cutoff 500 ng/mL)Performed By: #### UMICAO, UA, DIOGENES #### [facility] [address] [place] [phone] Cable Reeler: Campos Chandra MDOpiate(s), UrNegativeNormalNEGProvidence Hospital on above:Result Comment: (Positive cutoff 100 ng/mL)Performed By: #### UMICAO, UA, DIOGENES #### [facility] [address] [place] [address] Cable Reeler: Campos Chandra MDOxycodone, UrineNegativeNormalNEGProvidence Hospital on above:Result Comment: (Positive cutoff 100 ng/mL)Performed By: #### UMICAO, UA, DIOGENES #### [facility] [address] [place] [address] Cable Reeler: JESUS Wonghencyclidine, UrNegativeNormalNEGProvidence Hospital on above:Result Comment: (Positive cutoff 25 ng/mL)Performed By: #### UMICAO, UA, DIOGENES #### [facility] [address] [place], [place] [phone] Cable Reeler: JESUS Wongropoxyphene,UrineNegativeNormalNEGProvidence Hospital on above:Result Comment: (Positive cutoff 300 ng/mL)Performed By: #### UMICAO, UA, DIOGENES #### [facility] [address] [place], [place] [phone] Cable Reeler: Campos Chandra MDTricyclic antidepressants Screen Ql (U)Negative NormalNEGProvidence Hospital on above:Result Comment: (Positive cutoff 300 ng/mL) Drug screen results are to be used for medical purposes only. All positive results are unconfirmed. Testing for employment or legal uses should be sent to a reference laboratory for confirmation.Performed By: #### UMICAO, UA, DIOGENES #### [facility] [address] [place] [address] Cable Reeler: Campos Chandra MDBuprenorphrine, UrNOT REPORTEDNormalNEGMercy Conrad HospitalComment on above:Performed By: #### UMICAO, UA, DIOGENES #### [facility] [address] [place] [address] Cable Reeler: Campos Chandra MDInterpretive InfoNOT REPORTEDNormalMercy Field Memorial Community HospitalComment on above:Performed By: #### UMICAO, UA, DIOGENES #### [facility] [address] [place] [address] Cable Reeler: MELITON WongDMA, UrineNOT REPORTEDNormalNEGMercy Conrad HospitalComment on above:Performed By: #### UMICAO, UA, DIOGENES #### [facility] [address] [place] [address] Cable Reeler: MARY Wongrug screen multi urineOrdered By: Venecia Patterson on [id number] Screen, UrNegativeNEGATIVEMercy Health Work Phone: comment on [...] sent to a reference laboratory for confirmation. [employer] Work Phone: HCG, Quanton [id number], Ekaxo73575 IU/LHigh<5Marietta Osteopathic ClinicComment on above:Result Comment: Non-preg premeno <=5 Postmeno <=8 Male <=3 If HCG results do not concur with clinical observations, additional testing to confirm results is recommended. Elevated results not associated with may be found in patients with other diseases such as tumors of the germ cells (testis, ovaries, etc.), bladder, pancreas, stomach, lungs, and liver.Performed By: #### BHCG #### [facility] [address] [place] [address] Cable Reeler: Aleksandr Wonggnesiumon [id number] [Mass/Vol]1.8 mg/dLNormal1.6-2.6Mkettering health miamisburgy Field Memorial Community HospitalComment on above:Performed By: #### MG, CMPX, CDP #### [facility] [address] [place] [address] Cable Reeler: Aleksandr WonggnesiumOrdered By: Venecia Patterson on 04-30-2021 Magnesium [Mass/Vol]1.8 mg/dL1.6 - 2.6 mg/dLMercy Health Work Phone: [facility] Work Phone: Microscopic UrinalysisOrdered By: Venecia Patterson on 04-30-2021-[facility] [employer] Work Phone: amorphous, UANOT REPORTEDNoneMercy Health Work Phone: bacteria, UANOT REPORTEDNoneMercy Health Work Phone: casts UANOT REPORTED/LPFMercy Health Work Phone: crystals, UANOT REPORTEDNone /HPFMercy Health Work Phone: epithelial Cells UANOT REPORTED/HPFMercy Health Work Phone: Mucus, UANOT REPORTEDNoneMercy Health Work Phone: Other Observations UANOT REPORTEDNOT REQ.[facility] Work Phone: rBC, UALOADEDMercy Health Work Phone: renal Epithelial, UANOT REPORTED0 /HPFMercy Health Work Phone: Trichomonas, UANOT REPORTEDNoneMercy Health Work Phone: WBC, UA2 TO 50 /HPFMercy Health Work Phone: Yeast, UANOT REPORTEDNonHolmes County [facility] Work Phone: [facility] Work Phone: Urinalysis, Routineon [id number], SemiQt,Ur NegativeNormalNEGMarietta Osteopathic ClinicComment on above:Performed By: #### UMICAO, UA, DIOGENES #### [facility] [address] [place] [address] Cable Reeler: Mery Wong, Urine3+AbnormalUniversity Hospitals Samar[facility] Comment on above:Performed By: #### UMICAO, UA, DIOGENES #### [facility] [address] [place] [address] Cable Reeler: Bre Wongrity (U)CLOUDYAbnormalCLEARMWilson Memorial HospitalComment on above:Performed By: #### UMICAO, UA, DIOGENES #### [facility] [address] [place] [address] Cable Reeler: NITESH Wongolor ()YELLOWNoMarymount Hospital Comment on above:Performed By: #### UMICAO, UA, DIOGENES #### [facility] [address] [place] [address] Cable Reeler: NITESH WongmentNormBarberton Citizens HospitalComment on above:Performed By: #### UMICAO, UA, DIOGENES #### [facility] [address] [place] [address] Cable Reeler: Francisco Wong Ql (U)NegativeNormalUniversity Hospitals Samaritan Medical CenterComment on above:Performed By: #### UMICAO, UA, DIOGENES #### [facility] [address] [place] [address] Cable Reeler: Campos Chandra MDKetones Ql (U)NegativeNormalNEGMarietta Osteopathic ClinicComment on above:Performed By: #### UMICAO, UA, DIOGENES #### [facility] [address] [place] [address] Cable Reeler: Campos Chandra MDLeukocyte esterase Test strip Ql (U)1+AbnormalNEG [facility]opathic ClinicComment on above:Performed By: #### UMICAO, UA, DIOGENES #### [facility] [address] [place] [address] Cable Reeler: Merle Wongite,UrNegativeNormMiddletown Hospital Comment on above:Performed By: #### UMICAO, UA, DIOGENES #### [facility] [address] [place] [address] Cable Reeler: JESUS Wong,Ur5.8Gmdqig7.0-8.0M[facility] Osteopathic ClinicComment on above:Performed By: #### UMICAO, UA, DIOGENES #### [facility] [address] [place] [address] Cable Reeler: Cameron Wong Ql (U)3+AbnormalNEGMarietta Osteopathic Clinic Comment on above:Performed By: #### UMICAO, UA, DIOGENES #### [facility] [address] [place] [address] Cable Reeler: MARCK Wongpec. [place],Ur1.525Saknbq6.005-1.030M[facility] Osteopathic ClinicCommclaren central [place] on above:Performed By: #### UMICAO, UA, DIOGENES #### [facility] [address] [place] [address] Cable Reeler: Breanna Wongbilinogen,UrNormalNormalNORMMarietta Osteopathic ClinicComment on above:Performed By: #### LOULOU GAYTAN, DIOGENES #### [facility] [address] [place] [address] Cable Reeler: Campos Chandra MDUrinalysis, reflex to microscopicOrdered By: Venecia Patterson on 26-74-0834Elihodnjd UrineNegativeNEGATIVEMercy Health Work Phone: color, UAYELLOWYELLOWMercy Health Work Phone: Glucose, UrNegativeNEGATIVEMer Health Work Phone: Interpretation and review of laboratory results AbnormalMercy Health Work Phone: Ketones Ql (U)NegativeNEGATIVEOhiohealth Grove City Methodist Hospital Health Work Phone: leukocyte esterase Test strip Ql (U)1+AbnormalNEGATIVE [facility] Work Phone: Nitrite, UrineNegativeNEGATIVEOhiohealth Grove City Methodist Hospital Health Work Phone: pH, UA5.0[facility] Work Phone: protein, UA3+AbnormalNEGATIVEOhiohealth Grove City Methodist Hospital Health Work Phone: specific [place], UA1.025[facility] Work Phone: Turbidity UACLOUDYAbnormalCLEARMercy Health Work Phone: Urinalysis CommentsMercy Health Work Phone: Urine Hgb3+AbnormalNEGATIVEOhiohealth Grove City Methodist Hospital Health Work Phone: Urobilinogen, UrineNormalNormalMercy Health Work Phone: [facility] Work Phone: Urinalysis,Microon 04-30-2021-----NormalMarietta Osteopathic ClinicComment on above:Performed By: #### LOULOU GAYTAN, DIOGENES #### [facility] [address] [place] [address] Cable Reeler: Judy Wong RBC'sLOADED[address] Comment on above:Performed By: #### UMICAO, UA, DIOGENES #### [facility] [address] [place] [address] Cable Reeler: Judy Wong WBC's[address] [place] [address] Comment on above:Performed By: #### UMICAO, UA, DIOGENES #### [facility] [address] [place] [address] Cable Reeler: Lucas Wongrphouyves sediment LM Ql (Urine sed)NOT REPORTED NormalWright-Patterson Medical Center HospitalComment on above:Performed By: #### UMICAO, UA, DIOGENES #### [facility] [address] [place] [address] Cable Reeler: Campos Chandra MDBacteriaNOT REPORTEDDayton VA Medical CenterComment on above:Performed By: #### UMICAO, UA, DIOGENES #### [facility] [address] [place] [address] Cable Reeler: NITESH WongastsNOT REPORTEDUniversity Hospitals St. [facility] Comment on above:Performed By: #### UMICAO, UA, DIOGENES #### [facility] [address] [place] [address] Cable Reeler: NITESH Wongrystals LM Nom (Urine sed)NOT REPORTEDNormalWESTERN ARIZONA REGIONAL MEDICAL CENTERE [facility] Osteopathic ClinicComment on above:Performed By: #### UMICAO, UA, DIOGENES #### [facility] [address] [place] [address] Cable Reeler: Campos Chandra MDEpithelial cells LM Ql (Urine sed)NOT REPORTED NormalMercy Medardo HospitalComment on above:Performed By: #### UMICAO, UA, DIOGENES #### [facility] [address] [place] [address] Cable Reeler: Campos Chandra MDEpithelial, RenalNOT UJPNWYRBTjdigo1CnqmkMarietta Osteopathic ClinicComment on above:Performed By: #### UMICAO, UA, DIOGENES #### [facility] [address] [place] [address] Cable Reeler: MELITON Wongucus StrandsNOT REPORTEDNormalNONEMeUC West Chester HospitalComment on above:Performed By: #### UMICAO, UA, DIOGENES #### [facility] [address] [place] [address] Cable Reeler: Jean-Pierre Wong ObservationsNOT REPORTEDNormalNREQMarietta Osteopathic ClinicComment on above:Performed By: #### UMICAO, UA, DIOGENES #### [facility] [address] [place] [address] Cable Reeler: Campos Chandra MDTrichomonasNOT REPORTEDNormalNONEMeUC West Chester HospitalComment on above:Performed By: #### UMICAO, UA, DIOGENES #### [facility] [address] [place] [address] Cable Reeler: Tyra WongastVILMA REPORTEDNormalNONEMeUC [facility] Comment on above:Performed By: #### UMICAO, UA, DIOGENES #### [facility] [address] [place] [address] Cable Reeler: Campos Chandra MDhCG, quantitative, pregnancyOrdered By: Venecia Patterson on 58-50-0844gLY Ydsfp22928Vyhg<5 IU/LMercy Health Work Phone: comment on above: [...] and liver. Interpretation and review of laboratory resultsAbnoAvita Health System Work Phone: [facility] [employer] Work Phone: rPR QUANTon 18-99-0936Ordzx Plasma Reagin, Quant Non-ReactiveNormalNonRea<1:1The [facility] HospitalComment on above:Performed By: #### RPRQ #### [facility] [address] [place] [address] B SURFACE ANTIGEN SCREENon 79-13-6966LHzNn ScreenNegativeNormal NegativeThe [facility] HospitalComment on above:Performed By: #### RUBIGG #### [facility] [address] [place], [place] [address]ATITIS C VIRUS AB W/ REFLEX QUANTon 31-37-5633FZD AB<0.1Normal 0.0-0.9The [facility] on above:Performed By: #### HCVPCRR #### [facility] [address] [place] [address] DelanoenInterpretation:CommentNormalThe [facility] on above: Result Comment: Negative Not infected with HCV, unless recent infection is suspected or other evidence exists to indicate HCV infection.Performed By: #### HCVPCRR #### [facility] [address] [place] [address] KarenHIV 1 AND 2 WITH REFLEXon 60-45-6226BWA Screen 4th Generation wRfx Non-ReactiveNormalNon ReactiveThe [facility] HospitalCommclaren central [place] on above:Performed By: #### RPRQ #### [facility] [address] [place] [address] KarenRUBELLA AB IGGon 11-83-4836Puuieve Antibodies, IgG2.95 indexNormal Immune >0.99The [facility] on above:Result Comment: Non-immune <0.90 Equivocal 0.90 - 0.99 Immune >0.99Performed By: #### FLYG #### [facility] [address] [place] [address] Carlos KarenCBC AUTO DIFFon 00-63-3265BZHS #0.0 103/ulNormal0.0-0.1The [facility] HospitalComment on above:Performed By: #### FLYG #### [facility] [address] [place] [address] Carlos KarenBasophils/100 WBC (Bld)0.3 %Normal0.2-2.0The [facility] Comment on above:Performed By: #### FLYG #### [facility] [address] [place] [address] Carlos KarenEO #0.0 103/ulNormal0.0-0.7The [facility] HospitalComment on above: Performed By: #### FLYG #### [facility] [address] [place] [address] Carlos KarenEosinophils/100 WBC (Bld)0.5 %Critically low0.9-7.0The [facility] HospitalComment on above:Performed By: #### FLYG #### [facility] [address] [place] [address] Carlos KarenErythrocyte distribution width (RBC) [Ratio]12.3 %Rirzfs45.0-15.0The [facility] HospitalComment on above:Performed By: #### FLYG #### [facility] [address] [place] [address] Carlos KarenHematocrit (Bld) [Volume fraction]39.2 %Jmyflv50.0-48.0The [facility] HospitalComment on above:Performed By: #### FLYG #### [facility] [address] [place] [address] Carlos KarenHemoglobin (Bld) [Mass/Vol]13.0 g/cEQyzizb86.0-16.0The [facility] HospitalComment on above:Performed By: #### FLYG #### [facility] [address] [place] [address] Carlos GarridoenIG #0.01 10e3/ulNormal0.00-0.03[facility] Medical CenterComment on above:Performed By: #### FLYG #### [facility] [address] [place] [address] Carlos GarridoenIG %0.2 %Normal0.0-0.5The [facility] HospitalComment on above: Performed By: #### RENATO #### [facility] [address] [place] [address] Carlos KarenLYMPH #1.7 103/ulNormal1.2-3.8The [facility] HospitalComment on above: Performed By: #### RENATO #### [facility] [address] [place] [address] Carlos KarenLymphocytes/100 WBC (Bld)25.5 %Yxmocx33.5-60.0[facility] Comment on above:Performed By: #### FLYG #### [facility] [address] [place] [address] Carlos KarenMANUAL DIFF REQNONormalUniversity Hospitals Portage Medical CenterComment on above: Performed By: #### FLYG #### [facility] [address] [place] [address] Carlos KarenMCH (RBC) [Entitic mass]30.2 voSxtxgg65.7-34.0[facility] Comment on above:Performed By: #### FLYG #### [facility] [address] [place] [address] Carlos KarenMCHC (RBC) [Mass/Vol]33.2 g/zPJqwgwn97.9-35.2[facility] Comment on above:Performed By: #### FLYG #### [facility] [address] [place] [address] Carlos KarenMCV (RBC) [Entitic vol]91.2 jOZzpeow39.0-99.0[facility] Comment on above:Performed By: #### FLYG #### [facility] [address] [place] [address] Carlos KarenMONO #0.6 103/ulNormal0.3-0.8The [facility] HospitalComment on above: Performed By: #### LFYG #### [facility] [address] [place] [address] Carlos KarenMonocytes/100 WBC (Bld)8.7 %Normal1.7-12.0The [facility] Comment on above:Performed By: #### FLYG #### [facility] [address] [place] [address] Carlos KarenNEUT #4.2 103/ulNormal1.4-6.5The [facility] HospitalComment on above: Performed By: #### FLYG #### [facility] [address] [place] [address] Carlos KarenNeutrophils/100 WBC (Bld)64.8 %Kiahxp58.0-75.0The [facility] Comment on above:Performed By: #### FLYG #### [facility] [address] [place] [address] Carlos KarenPlatelet mean volume (Bld) [Entitic vol]9.2 fLCritically low9.5-13.5 The [facility] HospitalComment on above:Performed By: #### FLYG #### [facility] [address] [place] [address] Carlos FpsqxLDC782 103/agQdgfkj605-224Vun [facility] HospitalComment on above: Performed By: #### FLYG #### [facility] [address] [place] [address] Carlos KarenRBC4.30 106/ulNormal4.20-5.40The [facility] HospitalComment on above: Performed By: #### FLYG #### [facility] [address] [place] [address] Carlos KarenWBC6.5 103/ulNormal4.0-11.0The [facility] HospitalComment on above: Performed By: #### RUBIGG #### [facility] [address] [place] [address] Carlos KarenCULTURE URINEon 44-10-2047ZJTMRWD URINECulture Observations: NO GROWTHNoAvita Health System Galion HospitalComment on above:Performed By: #### RPRQ #### [facility] [address] [place] [address] Carlos KarenGLYCOHEMOGLOBIN A1Con 17-82-2351TWJ RECOMMENDATIONADA THERAPEUTIC TARGET 6.0 - 7.0 ACTION SUGGESTED > 7.0NoAvita Health System Galion HospitalComment on above:Performed By: #### RUBIGG #### [facility] [address] [place] [address] Carlos KarenGlucose [Mass/Vol]94 mg/dLNoAvita Health System Galion HospitalComment on above:Performed By: #### RUBIGG #### [facility] [address] [place] [address] Carlos HdibiCdS2a (Bld) [Mass fraction]4.9 %Normal<=6.0The [facility] Comment on above:Performed By: #### RUBIGG #### [facility] [address] [place] [address] Carlos KarenNATERA BOX TEST PT SEND OUTon 37-21-8823SLGP TO REF LAB04/10/2021 NormalThe [facility] HospitalComment on above:Performed By: #### RUBIGG #### [facility] [address] [place] [address] Carlos KarenTYPE AND SCREENon 30-39-4935JCME AND SCREENNegativeNoAvita Health System Galion HospitalComment on above:Performed By: #### TNS #### [facility] [address] [place] [address] Carlos KarenUS PREG TVon 73-64-3590KY PREG TVEXAMINATION: US PREG TV HISTORY: test [...] Electronically authenticated by: AYDE MIN Date: 2021-04-02 09:55[facility] Memorial HospitalOG PANEL 2: 30 to 65on 12-31-2020..NormalThe [facility] HospitalComment on above:Result Comment: Performed at: WBPerformed By: #### [id number] #### [facility] [address] [place] [address] Carlos GarridoenAge Gdln ACOG Psuoibm21-92MkwzjyKidAvita Health System Galion HospitalComment on above:Performed By: #### [id number] #### [facility] [address] [place] [address] Carlos KarenDIAGNOSIS:CommentAbWayne HospitalCommclaren central [place] on above: Result Comment: EPITHELIAL CELL ABNORMALITY. LOW GRADE SQUAMOUS INTRAEPITHELIAL LESION (LSIL). PREDOMINANCE OF COCCOBACILLI CONSISTENT WITH SHIFT IN VAGINAL MARA IS PRESENT. Performed at: WBPerformed By: #### [id number] #### [facility] [address] [place] [address] Carlos KarenElectronically signed by:CommentZanesville City Hospital on above:Result Comment: Latonya Sharma MD, Pathologist Performed at: WBPerformed By: #### [id number] #### [facility] [address] [place] [address] Carlos KarenHPV AptimaPositiveAbnormalNegativeUniversity Hospitals Portage Medical CenterComment on above:Result Comment: This nucleic acid amplification test detects fourteen high-risk HPV types (16,18,31,33,35,39,45,51,52,56,58,59,66,68) without differentiation. Performed at: =GPerformed By: #### [id number] #### [facility] [address] [place] [address] Carlos KarenMethodology:CommentNoUniversity Hospitals Portage Medical Center on above: Result Comment: This liquid based ThinPrep(R) pap test was screened with the use of an image guided system. Performed at: WBPerformed By: #### [id number] #### [facility] [address] [place] [address] Carlos KarenNote:CommentNoUniversity Hospitals Portage Medical Center on above:Result Comment: The Pap smear is a screening test designed to aid in the detection of premalignant and malignant conditions of the uterine cervix. It is not a diagnostic procedure and should not be used as the sole means of detecting cervical cancer. Both false-positive and false-negative reports do occur. . Performed at: WBPerformed By: #### [id number] #### [facility] [address] [place] [address] Carlos KarenPathologist Provided ONX49IsdqzerTyhdhlLmcUniversity Hospitals Portage Medical Center on above:Result Comment: R87.612, R87.5 Performed at: WBPerformed By: #### [id number] #### [facility] [address] [place] [address] Carlos KarenPerformed by:CommentNoUniversity Hospitals Portage Medical Center on above: Result Comment: Antoinette Conrad, Machinery Dismantler (ASCP) Performed at: WBPerformed By: #### [id number] #### [facility] [address] [place] [address] Carlos KarenRecommendation:CommentAbUniversity Hospitals [facility]aut Medical Center on above: Result Comment: Suggest follow up as clinically appropriate. Performed at: WBPerformed By: #### [id number] #### [facility] [address] [place] [address] Carlos KarenSpecimen adequacy:CommentZanesville City Hospital on above:Result Comment: Satisfactory for evaluation. Endocervical and/or squamous metaplastic cells (endocervical component) are present. Performed at: WBPerformed By: #### [id number] #### [facility] [address] [place] [address] Carlos Hull Vital Signs Date TimeVital SignValuePerforming GdgabpantFkuxdfku20-32-2883 10:34-0400Body mass index (BMI) [Ratio]27.94 kg/t0Tbkdv Cecilia DO Work Phone: [phone] [place], [place] [address]Wxcewiqwie20-90-2064 10:34-0400Body .92 kgCorey Cecilia DO Work Phone: [phone])[facility] [place], [place] [address]Swwwqdsxos49-48-1282 10:34-0400Diastolic blood scxbujoe01 mm[Hg]Sudhir Cecilia DO Work Phone: 1(097)[address] [place], [place] 4990310-28-2025 10:34-0400Systolic blood grluyuhn808 mm[Hg]Sudhir Cecilia DO Work Phone: [phone])[address] [place], [place] 4990310-06-2025 08:44-0400Body lxxpeu473.2 cmKrsusan Zhao PNEUMATIC TUBE FITTER Work Phone: [phone] [place], [place] 499[address]10-06-2025 08:44-0400Body mass index (BMI) [Ratio]28 kg/x9Ijccmxbu Cece PNEUMATIC TUBE FITTER Work Phone: [phone] [place], [place] 4990310-06-2025 08:44-0400Body ywbfeh20.1 kg Jiesusan Pangly PNEUMATIC TUBE FITTER Work Phone: [phone])[address] [place], [place] 4990310-06-2025 08:44-0400Diastolic blood tawyknng12 mm[Hg]Jie Cece PNEUMATIC TUBE FITTER Work Phone: 1(377)[address] [place], [place] 499[address]10-06-2025 08:44-0400Systolic blood upymbclw001 mm[Hg]Jie Pangly PNEUMATIC TUBE FITTER Work Phone: [phone])[address] [place], [place] 4990309-23-2025 13:34-0400Body mass index (BMI) [Ratio]28.32 kg/y8Paehu Cecilia DO Work Phone: 1(470)[address] [place], [place] 4990309-23-2025 13:34-0400Body okaskh28.01 kgCorey Cecilia DO Work Phone: 1(516)[address] [place], [place] 4990309-23-2025 13:34-0400Diastolic blood cenqdlxg15 mm[Hg]Sudhir Vazquezo DO Work Phone: [facility]ansonGrlknnobmv88-99-9192 13:34-0400Systolic blood wdksvxih826 mm[Hg]Sudhir Cecilia DO Work Phone: [facility]ansonFzyytgwxtq09-02-9993 16:55-0500Body temperature 98.06 [degF]Chucho Kwon [facility]01-03-2023 16:55-0500 Diastolic blood sovkcdrp900 mm[Hg]Chucho Kwon [facility]01-03-2023 16:55-0500Heart rate91 /minChucho Kwon [facility]01-03-2023 16:55-0500 Respiratory rate18 /minSaimahn Doyle [facility]01-03-2023 16:55-8052MeV7% (BldA) [Mass fraction]98 %Chucho Kwon [facility]01-03-2023 16:55-0500 Systolic blood olvkgkua268 mm[Hg]Chucho Kwon [facility]08-05-2021 00:06-0400Body qyocnq54.2976 kgDR EL Lucas [facility] HospitalComment on above: Performed By: #### AFPMAT #### [facility] [address] [place] [address] Carlos GarridoYkkhj07-81-6892 17:33-0400Body pphojm872.2 cmVenecia Patterson MD Work Phone: [employer] Work Phone: 1(884) 510-956207-15-2021 17:33-0400Body mass index (BMI) [Ratio] 25.98 kg/e8FtofcVenecia Patterson MD Work Phone: [employer] Work Phone: 1(190) 597-869007-15-2021 17:33-0400Body xarczonalug50.9 [degF]Venecia Patterson MD Work Phone: [facility] [employer] Work Phone: 1(863) 987-516007-15-2021 17:33-0400Body .25 kgVenecia Patterson MD Work Phone: [facility] [employer] Work Phone: 1(347) 478-951707-15-2021 17:33-0400Diastolic blood hevsqvqu92 mm[Hg] Venecia Patterson MD Work Phone: [facility] [employer] Work Phone: 1(948) 894-509007-15-2021 17:33-0400Heart rate71 /Jenn Patterson MD Work Phone: [facility] [employer] Work Phone: 1(544) 271-449007-15-2021 17:33-0400Respiratory rate18 /Jenn Patterson MD Work Phone: [facility] [employer] Work Phone: 1(855) 836-627707-15-2021 17:33-3838PfR5% (BldA) [Mass fraction]100 % Venecia Patterson MD Work Phone: [facility] [employer] Work Phone: 1(723) 226-905007-15-2021 17:33-0400Systolic blood fkezkkhs309 mm[Hg] Venecia Patterson MD Work Phone: [facility] [employer] Work Phone: 1(330) 341-735406-23-2021 20:32-0400Body fkggpweumij66.2 [degF] Anthony Villalobos MD Work Phone: [facility] [employer] Work Phone: 1(453) 585-354306-23-2021 20:32-0400Body hnreay72.61 kgAnthony Villalobos MD Work Phone: [facility] [employer] Work Phone: 1(108) 614-750606-23-2021 20:32-0400Diastolic blood eawkacgy68 mm[Hg] Anthony Villalobos MD Work Phone: [employer] Work Phone: 1(943) 372-557806-23-2021 20:32-0400Heart rate66 /minAnthony Villalobos MD Work Phone: [facility] Work [facility]: 1(544) 382-110706-23-2021 20:32-0400Respiratory rate18 /minAnthony Villalobos MD Work Phone: [facility] [employer] Work Phone: 1(620) 115-352906-23-2021 20:32-7422FwE8% (BldA) [Mass fraction]98 % Anthony Villalobos MD Work Phone: [facility] Work Phone: 1(933) 445-892106-23-2021 20:32-0400Systolic blood zbrkznby899 mm[Hg] Anthony Villalobos MD Work Phone: [facility] Work Phone: Encounters Encounter DateEncounter TypeCare ProviderFacilityStart: 08-13-2025 End: 44-30-4168Einzit flowsheetCorey Cecilai N[place] Work Phone: [facility] OBGYNStart: 08-13-2025 End: 39-53-6146Cudjce flowsheetCorey Cecilia [place] Work Phone: [facility] Jeanna OBGYNStart: 08-13-2025 End: 13-75-6292Tbyjupiig Result EncounterCorey Cecilia [place] Work Phone: [facility] External Department UnsolicitedStart: 08-13-2025 End: 69-37-4642Ijajgyu encounter procedureCorey Cecilia [place] Work Phone: [facility] Work Phone: Start: 08-13-2025 End: 37-55-1392Ggnxiczi preventive med est patient 18-39 yrsCorey Cecilia DO Work Phone: [facility] Jeanna OBGYNComment on above:Well woman exam with routine gynecological exam; Pre-operative exam; Request for sterilizationStart: 08-13-2025 End: 26-97-6730Mtmelgvwwfhbg examination doneCorey Cecilia DO Work Phone: NO HealthcareStart: 08-13-2025 End: 45-56-5572xwciphzuliVIKWR FAZIONot AvailableStart: 07-22-2025 End: 54-08-6121Avnxib Song Zhao PNEUMATIC TUBE FITTER Work Phone: NOM[facility] [place] OBGYNStart: 07-22-2025 End: 43-62-5489Pmiagn Song Zhao PNEUMATIC TUBE FITTER Work Phone: noMS [place] OBGYNStart: 07-22-2025 End: 62-15-0287Axozxo follow up visit related to original Yissel Zhao PNEUMATIC TUBE FITTER Work Phone: noms Jeanna OBGYNComment on above:Status post D&C; Positive urine test ([facility])Start: 07-22-2025 End: 63-82-0612xjtqvmjleyDANCFICJ EBERLYNot AvailableStart: 07-11-2025 End: 97-21-7686fhuuahskslQIL [facility] Work Phone: Start: 07-11-2025 End: 65-27-1479Vhzpwevl ReferredNON STAFF-LAB Path Spec Jeanna HospStart: 07-09-2025 End: 96-48-7331Zlesflvjv Result EncounterCorey Cecilia DO Work Phone: noms External Department UnsolicitedStart: 07-09-2025 End: 41-99-5425Pjjmuihiw Result EncounterCorey Cecilia DO Work Phone: noms External Department UnsolicitedStart: 07-09-2025 End: 15-40-7759Yvylfh outpatient visit 15 minutesCorey Cecilia DO Work Phone: [facility] Jeanna OBGYNComment on above:Encounter for IUD removal; Missed menses; Positive urine test ([facility])Start: 07-09-2025 End: 73-43-0667wujiopnqfaMLWJH FAZIONot AvailableStart: 07-08-2025 End: 08-43-2187Oiwpqaika Result EncounterCorey Cecilia DO Work Phone: noms External Department UnsolicitedStart: 07-08-2025 End: 37-84-5384Ejtgcbqid Result EncounterCorey Cecilia DO Work Phone: n[facility] External Department UnsolicitedStart: 04-17-2025 End: 46-03-5289tyeemhgljhIxekupc HARWOODFacility:Occupational Health and WellnessStart: 06-06-2024 End: 71-27-9142hpmlkqerqfCtdqolz CATLETTSBURGFacility:Occupational Health and WellnessStart: 10-19-2022 End: 04-97-1324Lovkcmfmp department patient visitJohn ParenteFacility:FTMCStart: 10-19-2022 End: 07-30-1606Xzvojomhe department patient visitJohn Doyle [facility] Start: 10-15-2021 End: 44-19-4117Eeozavbosy and management of inpatientDR EL JAIME Facility:E4Naogq: 10-07-2021 End: 54-40-8109ovtjvdfpshSB EL JAIMEFacility:D7Ngvhh: 10-02-2021 End: 98-92-5023ooeskgreosAB EL JAIMEFacility:G3Nbgvv: 07-29-2021 End: 25-61-7814otkkmfvrsdMB SUDHIR FAZIOFacility:U8Rdxlf: 07-11-2021 End: 02-55-2192clisrqsvgjGG EL JAIMEFacility:U5Ewljw: 06-04-2021 End: 89-49-6428arlmnxttnjQH EL JAIMEFacility:R1Bnypy: 05-18-2021 End: 72-34-2873ydmngtpzqlNS EL JAIMEFacility:U6Oriza: 04-30-2021 End: 06-51-6556Yyrtdensl department patient visitVENECIA Yeh YESENIACleveland Clinicsandy H. C. Watkins Memorial Hospitaltart: 04-30-2021 End: 93-71-3253Wystdkhdo department patient visitVenecia Patterson MD Work Phone: [facility] EDComment on above:Vaginal bleeding in (Primary Dx)Start: 04-30-2021 End: 16-50-8704sjpnlcsxlkZLDPLW RODRIGUEZFacility:T2Fxixc: 04-10-2021 End: 75-88-9368lsimiemqekQX EL JAIMEFacility:R7Givpo: 04-08-2021 End: 19-02-1912Nqhqxahkc department patient visitVESTINY Finch [facility] Hospitaltart: 04-08-2021 End: 73-14-3848Uuvuybtee department patient visitPaulinetiny Villalobos MD Work Phone: [phone] [place] [address] EDComment on above:Dental infection (Primary Dx)Start: 04-02-2021 End: 73-09-6683jvvkkzvtsiWP NONE LISTED REQUESTFacility:U5Chddw: 12-25-2020 End: 42-36-0812cikqdyahdbOV EL JAIMEFacility:H1 Procedures DateProcedureProcedure DetailPerforming ClinicianStart: 94-40-5490MCG,APTIMA HPV,AGE GDLNCorey Cecilia DO Work Phone: Start: 42-11-4571MA OB TRANSVAGINALCorey Cecilia DO Work Phone: Start: 40-54-2123Clztyhs intrauterine device iudCorey Cecilia DO Work Phone: Start: 28-23-8667FXW PREG QUANT HCGCorey Cecilia DO Work Phone: Start: 24-90-8407Kfyihvsg of Products of Conception, External ApproachDR EL THOMAStart: 62-68-0206Jtosiqit of Amniotic Fluid, Therapeutic from Products of Conception, Via Natural or Artificial OpeningDR EL THOMAStart: 64-66-2082Vvslypzgnqwg of Other Hormone into Peripheral Vein, Percutaneous ApproachDR EL GARRIDOREBELtart: 97-85-6179Clovd of magnesium Venecia Patterson MD Work Phone: Start: 81-76-4430Fajym typing serologic Zafar Patterson MD Work Phone: Start: 32-94-7399Djsw screen class list aMaria Rao Patterson MD Work Phone: Start: 92-47-3837Rbmkubkibz microscopic onlyVenecia Patterson MD Work Phone: Start: 37-08-3413Yieks dip stick/tablet rgnt auto w/o microscopyVenecia Patterson MD Work Phone: Start: 63-24-2228RydvwprZmuu Doyle Comment on above:rt wrist mass removalH/O: surgery Status post D&CKristina Cece PNEUMATIC TUBE FITTER Work Phone: Plan of Treatment DateCare ActivityDetailAuthorStart: 08-13-2025 End: 18-17-7778Vxiuljy encounter procedureNOMS Meeks OBGYNComment on above: ArrivedStart: 08-05-2025 End: 12-41-3071Zfbcmel encounter jgxtrulbk33/20/2025 1:30 PM EDT Procedure Visit NOMYves FRAZIER [address] [address] Sudhir Brooks, [address] [place], [place] [id number] NOMYves LINDQUISTNStart: 07-22-2025 End: 40-46-0523Ruhqzni encounter jarzvpqzg67/06/2025 8:40 AM EDT Office Visit KRISTAL FRAZIER [address] [place] [address] Jie Zhao, PNEUMATIC TUBE FITTER [address] [place] [address] ArrivedNOMS Jeanna FRAZIER Comment on above:ArrivedStart: 07-09-2025 End: 25-50-0466NK Pelvis transvaginalUS OB transvaginal Imaging Routine Missed menses Positive urine test ([facility]) Expected: 07/09/2025, Expires: 10/08/2025[facility] Work Phone: comment on above:Expected: 07/09/2025, Expires: 10/08/2025Start: 07-09-2025 End: 33-10-9026Rbxdadu encounter snnakglwu51/23/2025 1:10 PM EDT Procedure Visit NOMYves FRAZIER [address] [address] Sudhir Brooks DO [address] [place] [address] NOMYves [place] OBGYNStart: 84-05-6344EXVCM- 19 Vaccine ( season)COVID-19 Vaccine ( season)NOM HealthcareStart: 84-60-1146Pmazmfkkg vaccinationInfluenza Vaccine (#1)NOM HealthcareStart: 47-94-7118Yhulnhgah vaccinationSt. Rita'S Hospital Work Phone: start: 94-34-8702Yxocxqjdz for malignant neoplasm of cervixNOMS HealthcareStart: 38-78-6863JQX Vaccines (1 - 3-dose SCDM series)HPV Vaccines (1 - 3-dose SCDM series)[facility] HealthcareStart: 58-78-9815Budwtpark for malignant neoplasm of cervixPap SmearNOMS HealthcareStart: 59-06-3837Nbxpdwnoh B Vaccines (1 of 3 - 19+ 3-dose series)Hepatitis B Vaccines (1 of 3 - 19+ 3-dose series)[facility] HealthcareStart: 76-61-8156Xjonqif of varicella vaccinationVaricella Vaccines (1 of 2 - 13+ 2-dose series)[facility] HealthcareStart: 27-24-8551DBUKS-19 Vaccine (1)COVID-19 Vaccine (1)[facility] Work Phone: start: 71-01-3565FQnX/Tdap/Td Vaccines (1 - Tdap) DTaP/Tdap/Td Vaccines (1 - Tdap)[facility]: 50-56-7016IDI Vaccines (1 of 1 - Standard series)MMR Vaccines (1 of 1 - Standard series)[facility] End: 96-44-1829Mowiocj, UrineCulture, Urine Microbiology Routine Once for 1 Occurrences starting 04/30/2021 until 04/30/2021[facility] [employer] Work Phone: comment on above:Once for 1 Occurrences starting 04/30/2021 until 04/30/2021ulture, UrineCulture, Urine Microbiology Routine 04/30/2021 6:10 PM EDC[facility] [employer] Work Phone: cytology Cervical or vaginal smear or scraping study Pap Smear Pathology and Cytology Routine Well woman exam with routine gynecological exam Ordered: 08/13/2025[facility]ansonComment on above:Ordered: 08/13/2025 End: 98-06-5747hAO, quantitative, pregnancyhCG, quantitative, Lab Routine Status post D&C 6 Occurrences starting 07/22/2025 until 07/22/2026[facility] N[facility] Work Phone: comment on above:6 Occurrences starting 07/22/2025 until 07/22/2026Human papilloma virus DNA [Presence] in Unspecified specimen by Probe with amplificationHPV DNA probe, amplified Microbiology Routine Well woman exam with routine gynecological exam Ordered: 08/13/2025[facility] Work Phone: comment on above:Ordered: 08/13/2025 Payers DatePayer CategoryPayerPolicy [id number] [place] Blue Shield [id number] 2.16.840.1.883375.3.57[id number] 2.16.840.1.738358.3.57[id number] 2.16.840.1.757038.3.57[id number] 2.16840.1.683184.3.57[id number] 2.840.1.576545.3.57[id number] 2.840.1.515155.3.57[id number] 2.840.1.432995.3.57[id number] 2.840.1.068672.3.57[id number] 2.840.1.036944.3.57[id number] 2.840.1.728834.3.57[id number] 2.840.1.476168.3.57[id number] 2.840.1.893298.3.57[id number] 2.840.1.301714.3.57[id number] 2.16.840.1.015401.3.57[id number] 2.16840.1.769237.3.57[id number] 2.16.840.1.884713.3.57[id number] 2.16.840.1.897889.3.579.[id number] 2.16.840.1.500360.3.579.2.491390-37-9366Bauqnmt Health [id number] 1.2.840.910716.1.13.239.2.7.3.194778.26787-22-1871Ledh-qty23-42-2918Rfctwpp [id number] 1.2.840.681198.1.13.239.2.7.3.821348.315[facility] CampuscaidUnited Healthcare [id number] 2.16.840.1.5[id number] 2.16.840.1.604350.3.579.2.531 Social History DateTypeDetailFacilityStart: 04-08-2021 End: 79-08-8002Hnawmmq smoking status NHISNever smokerCleveland ClinicWibbitz Phone: start: 04-08-2021 End: 80-95-1257Edslzli use and exposureNever usedCleveland ClinicActitoStart: 04-08-2021 End: 92-92-7127Ofgxrow intakeLifetime non-drinker (finding)[facility] [employer] Phone: start: 57-58-0891Gmvxibd SDOH Alcohol Ssaolxojx3[facility] Work Phone: start: 00-93-5306CoiojsfaOvgmw Health Work Phone: start: 94-95-5217Qwk Assigned At BirthNot on [facility] CenterW[facility]z Phone: exposure to SARS-CoV-2 (event)Not sureMercy Health Start: 66-12-3425Kaazbuf smoking statusSmokes tobacco daily (finding)[facility] HospitalComment on above:10/18 ppdStart: 46-92-3776Wqi Assigned At [facility] CenterTobacc smoking status NHISTobacco smoking consumption unknownNOMS HealthcareSexFemale (finding)Community Memorial Hospitaltart: 63-51-3658Vui Assigned At [facility] Glenbeightart: 07-22-2025 End: 61-94-3110Poyqahpzx beverage intakeEx-drinker (finding)[facility] Start: 92-32-1551Ivmcsdr of Social functionNOMS HealthcareStart: 64-52-2234Rsr FemaleNOMT Healthcare Functional Status WjofXixxsozninIarxquEvdxzdsv42-32-5655Yzegfciulc StatusN/[facility] Clinical Notes 10-19-2022 to 08-13-2025 Note Date & TvokAohhLpsuiifq94-34-9407 History of Present illness Narrative* Linnea Mesa - 08/13/2025 10:20 AM EDT Reason for Appointment: Patient ID: Sofia Olivares is a 35 y.o. female who presents for Well Women Visit and Pre-op Visit Patient presents today for Pre Op/Annual appointment. Patient is scheduled to undergo Da Evonne assisted Bilateral Laparoscopic Salpingectomy on 09/11/[address] Brooks at [facility]. MEDICATIONS Current Outpatient Medications Medication Instructions acetaminophen (TYLENOL) 1,000 mg, Every 6 hours PRN VIT-FE FUMARATE-FA PO 1 tablet, Daily ALLERGIES No Known Allergies PROBLEMS Active Ambulatory Problems Diagnosis Date Noted Encounter for IUD removal 07/09/2025 Resolved Ambulatory Problems Diagnosis Date Noted No Resolved Ambulatory Problems No Additional Past Medical History HISTORY PAST MEDICAL HISTORY SOCIAL HISTORY History reviewed. No pertinent past medical history. Social History Tobacco Use Smoking status: Never [...] Constitutional: Appearance: Normal appearance. She is well-developed. Genitourinary: Vulva normal. Cardiovascular: Rate and Rhythm: Normal rate and [...] nursing note reviewed. Exam conducted with a equine science instructor present. Vitals: Estimated body mass index is 28 kg/m as calculated from the following: Height as of 07/22/25: 5' 7 . Weight as of 07/22/25: 178 lb 12.8 oz. BP: No LMP recorded. ASSESSMENT & PLAN ICD-10-CM 1. Well woman exam with routine gynecological exam Z01.419 2. Pre-operative exam Z01.818 3. Request for sterilization Z30.2 Annual Exam: Patient presents today for an annual exam. Patient states she is doing well and has complaints of heavy periods, bad cramps, and bleeding through super plus tampons after removal of mirena. Discussedadding endometrial ablation to tubal. Pt considering. Pap was obtained without difficulty. Pre Op: Patient is doing well but has desire for sterilization. I have discussed conservative management vs. surgical management with the patient in detail and patient desires surgical management at this time. Patient has voiced understanding that a Bilateral Salpingectomy is considered to be permanent and patient will undergo Da Evonne assisted Bilateral Laparoscopic Salpingectomy on 09/11/2025. Surgicalconsents were signed, mmc was reviewed, and patient is to proceed to [facility] OR. Follow Up: Patient is to follow up between 1-2 weeks post op to assess proper healing and recovery from procedure. Documented by Della Rai LPN on behalf of: Sudhir Brooks DO documented in this encounterCox BransonVxcqijyyud43-92-4360 History of Present illness Narrative* Jie Zhao [...] nursing note reviewed. Exam conducted with a equine science instructor present. Vitals: Estimated body mass index is 28 kg/m as calculated from the following: Height as of this encounter: 5' 7 . Weight as of this encounter: 178 lb 12.8 oz. BP: 118/68 No LMP recorded. ASSESSMENT & PLAN ICD-10-CM 1. Status post D&C Z98.890 hCG, quantitative, 2. Positive urine test ([facility]) Z32.01 Patient s/p D and C on 07/11/25. She reports no complaints of pain or bleeding. She was given an order to follow up serial HCG levels to below five. She is scheduled for salpingectomy next month. Documented by Jie Zhao NP on behalf of: Jie Zhao NP documented in this encounterCox BransonEspucfrypq58-43-5114 History of Present illness Narrative* Karina Burgess MA - 07/09/2025 1:10 PM [...] US OB transvaginal 3. Positive urine test ([facility]) Z32.01 OB transvaginal IUD Removal Date/Time: 07/09/2025 [...] of: Sudhir Brooks DO documented in this encounterCox BransonYitpxjvdmg01-85-8559 Hospital Discharge instructions Patient Education 10/19/2022 18:40:13 [...] Follow these instructions at home: Medicines Take ljwh-bve-essxsve and prescription medicines only as told by [...] and water are not available, use hand client retention specialist. Avoid contact with people who have [...] 11/10/2005 Document Revised: 08/16/2019 Document Reviewed: 03/23/2017 [employer] Patient Education 2020 [employer]. 10/19/2022 18:40:13 Upper Respiratory Infection, Adult, Svla-cy-Lxuj Upper Respiratory Infection, Adult An upper respiratory [...] and other clear broths. General instructions Take zkbu-wxx-lcgropw and prescription medicines only as told by [...] not have soap and water, use hand client retention specialist. Avoid touching your mouth, face, eyes, [...] get better within 7 10 days. Take qbxc-xiz-fhnyxnz and prescription medicines only as told by your doctor. This information is not intended to replace advice given to you by your health care provider. Make sure you discuss any questions you have with your health care provider. Document Released: 03/21/2009 Document Revised: 10/11/2019 Document Reviewed: 05/26/2018 [employer] Patient Education 2020 [employer]. Follow Up Care 10/19/2022 16:53:44 With:Joaquim Link Address: [address], [address] [place] [address]- Business (1) When:10/22/2022 18:20:33 Comments:Follow-up with your primary care provider in 3 to 5 days. If symptoms worsen, do not improve, or new symptoms arise please report back to emergency department for further evaluation. [facility] Hospital[facility] + Plan note No data available for this section [facility] HospitalEvunc [facility] note* Diagnosis Dental infection- Primary Acute apical periodontitis of pulpal origin documented in this encounter [employer] Phone: evaltxqixa note* Diagnosis Vaginal bleeding in - Primary Unspecified antepartum hemorrhage, unspecified as to episode of care documented in this encounter [employer] Phone: evalziygpw note* Diagnosis Encounter for IUD removal Missed menses Positive urine test ([facility]) documented in this encounter [facility] N42Evaluation noteNo assessment information availableAccess Hospital Dayton [employer] (Inspect Manager) Work Phone: Evaluation note* Diagnosis Status post D&C Other postprocedural status Positive urine test ([facility]) documented in this encounter [facility] N42Evaluation note* Diagnosis Well woman exam with routine gynecological exam Routine gynecological examination Pre-operative exam Unspecified pre-operative examination Request for sterilization documented in this encounter [facility]ansonHospital Discharge instructions* Attachments The following attachments cannot be sent through Care Everywhere. * Tooth: Abscessed (Somali) documented in this encounterCleveland ClinicWibbitz Phone: Hospital Discharge instructions* Attachments The following attachments cannot be sent through Care Everywhere. * : Vaginal Bleeding (Somali) documented in this encounterCleveland ClinicWibbitz Phone: progress note No data available for this section [facility] HospitalReason for referral (narrative)No reason for referral information availableAccess Hospital Dayton Ctr Work Phone: Summary Purpose Family History No [...] weeks , pt of Dr. Jaime in [place]. Pt started bleeding this afternoon around 4pm. Pt called office and they told her to go to hospital. She came here because she lives in [place]. Pt also c/o abdominal cramping.ReasonCommentsIUD removalPatient has had positive test with Mirena. Patient desires Mirena to be removed.ReasonComments Pre-op VisitPost op suction D&CReasonCommentsWell Women VisitPre-op Visit Ordered Prescriptions (unrec ognized section and content) PrescriptionSigDispensedRefillsStart DateEnd Date clindamycin (CLEOCIN) 300 MG capsule Take 1 capsule by mouth 3 times daily for 10 days 30 capsule /12/2020 Scheduled Active and Recently Administ ered Medications (unrecognized section and content) Medication Order// clindamycin (CLEOCIN) capsule 300 mg (COMPLETED) 300 mg, Oral, ONCE, On Tue04/08/21 at 2100, For 1 dose * 2101 (Given - Provider: Migel Toribio RN) INFORMATION SOURCE (unrecogn ized section and content) DATE CREATED AUTHOR 05/02/2021 [facility] DATE CREATED AUTHOR AUTHOR'S ORGANIZ ATION 10/23/2021 [facility] DATE CREATED AUTHOR AUTHOR'S ORGANIZ ATION 08/16/2023 [facility] DATE CREATED AUTHOR AUTHOR'S ORGANIZ ATION 04/19/2025 [facility] DATE CREATED AUTHOR AUTHOR'S ORGANIZ ATION 07/20/2025 [facility] DATE CREATED AUTHOR AUTHOR'S ORGANIZ ATION 08/14/2025 [facility] Patient Care team informatio n (unrecognized section and content) Team MemberRelationshipSpecialtyStart DateEnd Date Nakul Elias, DO [address] [place] [address] PCP - Generalmily Medicine02/22/23Team MemberRelationshipSpecialtyStart DateEnd Date Nakul Elias, DO [address] [place] [address] PCP - Generalmily Medicine02/22/23 Team Status: Inactive Member Role Status Dates NON STAFF Attending Provider Active Start: 2024 End: July 11, 2025Team MemberRelationshipSpecialtyStart DateEnd Date Nakul Elias DO [address] [place] [address] [facility]02/22/23Team MemberRelationshipSpecialtyStart DateEnd Date Nakul Elias, DO [address] [place] [address] PCP - [facility]Floyd [facility] Healthcarely Medicine02/22/23Team MemberRelationshipSpecialtyStart DateEnd Date Nakul Elias, DO [address] [place] [address] PCP - Generalmily Medicine02/22/23Team MemberRelationshipSpecialtyStart DateEnd Date Nakul Elias, DO [address] [place] [address] PCP - Generalmily Medicine02/22/2310 Unallocated, [facility] Provider, [address] [place], [place] [id number] PCP - GeneralFamily Upbnowog18/29/25 Goals (unrecognized section and content) Goals may [...] BE BASED ON THE PRIMARY CLINICAL RECORDS. [employer] [facility]. provides no warranty or guarantee of the accuracy or completeness of information in this document.
== END 2025-09-02 10:04 | disposition home or self-care (01) ==
LOC: PST 10:03
PROVIDERS: Visit Provider Obstetrics & Gynecology
DX: Z01.818 Encounter for other preprocedural examination (principal)

== ENCOUNTER 2025-09-11 06:13 | Day surgery (SDC) | payer BC, SELFPAY ==
[2025-09-02 10:25] VITALS: BP 133/85; PULSE 66; TEMP 36.2; O2SAT 99; BMI 27.2
[2025-09-11] VITALS (16 sets, daily range): BP systolic 111–143; BP diastolic 67–97; PULSE 53–72; TEMP 36.3–36.4; O2SAT 96–99; BMI 28.0
--- OUTSIDE RECORDS SUMMARY | 2025-09-11 06:15 | XMS_ITS | CCD ---
Author Organization [facility] Care Team Providers Care Software Firmware Engineer Name Role Phone Yifan Umana Primary Care Provider VENECIA PATTERSON Attending Unavailable MURRAY, YIFAN A Primary Care Unavailable ANTHONY VILLALOBOS Attending Unavailable MURRAY, YIFAN A Primary Care Unavailable KARASIK, DR GALLEGOS Attending Unavailable KARASIK, DR GALLEGOS Admitting Un[facility] Unavailable KARASIK, DR [...] Unavailable KARASIK, DR GALLEGOS Consulting Unavailable MURRAY, [facility] Primary Care Unavailable KARASIK, DR GALLEGOS [...] Attending Unavailable Joaquim Osuna Primary Care Physician [phone] Chucho Kwon Attending Unavailable Sharath CALIX Attending Unavailable Sharath CALIX Attending Unavailable Nakul Elias DO Primary Care Provider NON STAFF Attending Provider Unavailable NON STAFF Attending Unavailable NON STAFF Admitting Unavailable SUDHIR BROOKS Attending Unavailable JIE ZHAO Attending Unavailable SUDHIR BROOSK Attending Unavailable Nakul Elias DO Primary Care Provider Unallocated , Trevons Provider Primary Care Provi moses Allergies Allergy ClassificationReported Allergen(s)Allergy TypeDate of OnsetReaction(s) Facility (1 source)MorphineDrug Hzcpskb26-68-2292K[facility]phzOhio[facility] Medications Current Medications MedicationDrug Class(es)DatesSig (Normalized)Sig (Original)acetaminophen 500 mg oral tablet (9 sources)take 2 tablets by mouth every six hours as neededacetaminophen (Tylenol) 500 MG tablet Take 1,000 mg by mouth every 6 (six) hours if needed Activeacetaminophen 325 mg / HYDROcodone bitartrate 5 mg oral tablet (1 source)Opioid AgonistStart: 91-48-4121Basfw 325 mg-5 mg oral tablet See Instructions, for pain, 40 tab(s), Refill(s) 0, 1-2 tab(s) Oral q4hr Start Date: 06/17/17 Status: Orderedazithromycin 250 mg Tab 5-day Dose Pack (Z-Abe) (1 source)Start: 10-19-2022 End: 01-35-7650kfrbodhhqnan 250 mg Tab 5-day Dose Pack (Z-Abe) = 1 packet(s), Oral, As Directed, as directed on package labeling, X 5 day(s), # 6 tab(s), Refills(s) 0, Pharmacy: [facility], 170, cm,10/19/22 16:59:00 EST, Height/Length Dosing, 66, kg, 10/19/22 16:59:00 EST, Weight Dosing Start Date: 10/19/22 Stop Date: 10/24/22 Status: Orderedcephalexin 500 mg oral capsule (1 source)Cephalosporin AntibacterialStart: 39-83-0401taqp 1 capsule by mouth every eight hourscyclobenzaprine hydrochloride 10 mg oral tablet (1 source)Muscle RelaxantStart: 76-09-4457xhsf 1 tablet by mouth three times daily as needed for muscle spasmsdocusate sodium 100 mg oral capsule (1 source)Start: 14-90-8012rjqy 1 capsule by mouth twice daily as needed for constipationColace 100 mg Cap 100 mg = 1 cap(s), Oral, BID, PRN for constipation, # 20 cap(s), Refills(s) 0 Start Date: 06/17/17 Status: Ordered gabapentin 300 mg oral capsule (1 source)Anti-epileptic AgentStart: 62-34-3563oznz 1 capsule by mouth three times dailynaproxen 500 mg delayed release oral tablet (2 sources)Nonsteroidal Anti-inflammatory DrugStart: 04-71-1279ycad 1 tablet by mouth twice daily at mealtimenaproxen 500 mg oral enteric coated tablet 500 mg = 1 tab(s), Oral, BID, with food, # 60 tab(s), Refills(s) 0 Start Date: 06/17/17 Status: OrderedStart: 74-91-0051gjek 500 mg by mouth every twelve hours as needed for painnaproxen 500 mg, Oral, q12hr, PRN as needed for pain Start Date: 06/13/17 Status: OrderedoxyCODONE hydrochloride 5 mg oral tablet (1 source)Opioid AgonistStart: 22-00-9157joiligZXNX 50 mg oral tablet (2 sources)Start: 10-19-2022 End: 74-81-7259ipih 1 tablet by mouth once dailypredniSONE 50 mg Tab 50 mg = 1 tab(s), Oral, Daily, X 5 day(s), # 5 tab(s), Refills(s) 0, Pharmacy:[facility], 170, cm, 10/19/22 16:59:00 EST, Height/Length Dosing, 66, kg, 10/19/22 16:59:00 EST, Weight Dosing Start Date: 10/19/22 Stop Date: 10/24/22 Status: OrderedStart: 14-52-1942Qgyudjsh Vit-Fe Fumarate-FA ( PO) (1 source)take 1 tablet by mouth once dailyPrenatal Vit-Fe Fumarate-FA ( PO) Take 1 tablet by mouth daily 0 ActivePRENATAL VIT-FE FUMARATE-FA PO (8 sources)take 1 tablet by mouth once dailyPRENATAL VIT-FE FUMARATE-FA PO Take 1 tablet by mouth Daily Active Completed/Discontinued Medications MedicationDrug Class(es)DatesSig (Normalized)Sig (Original)clindamycin 150 mg oral capsule (2 sources)Lincosamide AntibacterialStart: 04-08-2021 End: 45-82-6637dsqdtwwmhjb (CLEOCIN) capsule 300 mgStart: 04-08-2021 End: 76-40-1918qnqh 1 capsule by mouth three times dailyclindamycin (CLEOCIN) 300 MG capsule Take 1 capsule by mouth 3 times daily for 10 days 30 capsule 0 04/08/2021 04/18/2021 Activeoxaprozin 600 mg oral tablet (1 source)Nonsteroidal Anti-inflammatory DrugStart: 07-29-2017 End: 01-13-7226coht 1 tablet by mouth twice dailyOxaprozin 600 mg Tablet Discontinued 600 MG PO Twice daily July 29, 2017 12:00am March 01, 2018 11:22amtiZANidine 4 mg oral tablet (1 source)Central alpha-2 Adrenergic AgonistStart: 07-29-2017 End: 73-63-0413flia 1 tablet by mouth once dailyTizanidine 4 mg tablet Discontinued 4 MG PO Daily July 29, 2017 12:00am March 01, 2018 11:22am Problems Active Problems Problem ClassificationProblemDateDocumented DateEpisodic/ChronicChronic obstructive pulmonary disease and bronchiectasis (1 source)Bronchitis; Translations: [Bronchitis, not specified as acute or chronic]Onset: 24-42-1588GsgirrutWimqvgmrzkbxc and procreative management (10 sources)Patient encounter status; Translations: [Encounter for removal of intrauterine contraceptive device]Onset: 865795-12-6553VkwulfdtUqucqgeva of teeth and jaw (1 source)Infection of [...] (1 source)Missed period; Translations: [Irregular menstruation, unspecified] 26-84-5277GcpzzpbMlpnx complications of (4 sources)Decreased movements, third trimester, not applicable or unspecified; Translations: [DECR MOVEMENTS 3RD TRI NA/UNS]Onset: 28-68-8334KvtwrajhRpvhz female genital disorders (1 source)Other specified noninflammatory disorders of vagina; Translations: [OTH SPEC NONINFLAMMATORY D/O VAGINA]Onset: 98-74-7061YqfkjjqxMcphf and delivery including normal (12 sources)Encounter for supervision of normal , unspecified, third trimester; Translations: [Encounter for full-term uncomplicated delivery]Onset: 38-87-1639VyqzqtyrSprjb screening for suspected conditions (not mental disorders or infectious disease) (20 sources)Encounter for screening for Streptococcus B; Translations: [Encounter for screening for diabetes mellitus]Onset: 03-39-9124DydwkfcnYqgzg skin disorders (1 source)Mass of soft ectyab48-06-9430ZxcxnvglKmbfudd on above:right wrist Residual codes; unclassified (1 source)39 weeks gestation of ; Translations: [39 WEEKS GESTATION OF ]Onset: 25-02-9595YqlylvyiMbkbpdvl codes; unclassified (1 source)37 weeks gestation of ; Translations: [37 WEEKS GESTATION OF ]Onset: 98-53-6476WnlnhxvoObjtcvrac-related disorders (1 source)Ocphvx02-99-3702DjljqizYwithey on above:Added secondary to documentation in Social History.Unclassified (1 source)CONTACT W/AND (SUSP) EXPOS COVID-19; Translations: [CONTACT W/AND (SUSP) EXPOS COVID-19]Onset: 10-22-2021 Past or Other Problems Problem ClassificationProblemDateDocumented DateEpisodic/ChronicResidual codes; unclassified (1 source)15 weeks gestation of ; Translations: [15 WEEKS GESTATION OF ]Onset: 11-04-6539JkshhcwaZfsaffras and history of mental health and substance abuse codes (1 source)Personal history of nicotine dependence; Translations: [PERSONAL HISTORY OF NICOTINE DEPEND]Onset: 38-04-6369Dyreicyi Results Test NameValueInterpretationReference RangeFacilityIGP,APTIMA HPV,AGE GDLNon 13-53-1068OGO GDLN ACOG TESTINGNote.NOMS HealthcareComment on above:TESTS RESULT FLAG UNITS REF RANGE LAB Clinician Provided Cytology Information Source.............Cervix;Endocervix No. of containers..01 ThinPrep Vial Age Algo ACOG Elodia... FLAG LEGEND: L-Low Normal,H-High Normal,LL-Alert Low,HH-Alert High <-Panic Low,>-Panic High,A-Abnormal,AA-Critical Abnormal Performed at: 01 =[address] [place] [address] Kendra Ferrer MD, HPV APTIMANegativeNegativeNOMS HealthcareComment on above:This nucleic acid amplification test detects fourteen high- risk HPV types (16,18,31,33,35,39,45,51,52,56,58,59,66,68) without differentiation. Performed at: =[address] [id number] Forest Engineer: Kendra Ferrer MD, Phone: [phone] Performed at: [address] [id number] Forest Engineer: Kendra Ferrer MD, Phone: [phone] IGP, APTIMA HPV, RFX 16/18,45Note.NOMS HealthcareComment on above:TESTS RESULT FLAG UNITS REF RANGE LAB DIAGNOSIS: 02 UNSATISFACTORY FOR EVALUATION. SPECIMEN REPROCESSED FOR INTERPRETATION USING GLACIAL ACETIC ACID (GAA). Recommendation: 02 Suggest follow up as clinically appropriate. Specimen adequacy: 02 Specimen processed and examined but unsatisfactory for evaluation of epithelial abnormality because of obscuring blood. Performed by: 02 Darcie Calle, Collection Specialist (ASCP) QC reviewed by: 02 Velia Uribe, Collection Specialist (ASCP) . 02 Note: Note 02 The [...] ThinPrep(R) pap test was interpreted using the I Love QCRGymtrack(TM) Cervical Algorithm whole slide imaging system. HPV Genotype Reflex Note 02 Criteria not met, HPV Genotype not performed. FLAG LEGEND: L-Low Normal,H-High Normal,LL-Alert Low,HH-Alert High <-Panic Low,>-Panic High,A-Abnormal,AA-Critical Abnormal Performed at: [address] [address] Kendra Ferrer MD, BRUSH-SPATULA CERVIX ENDOCERVIX [facility] Request for Lab Corpon 28-54-2153Mburyiwmv Request for Lab CorpNormAdventHealth Winter Garden Physician GroupComment on above:Order Comment: SUBMITTING DR: CESAR Desir Comment: See report. Scanned copy available in EMR. PERFORMED BY: [place] [address] PATHOLOGIST CUSTOMER ENGINEERING SPECIALIST NICK HARRINGTON M.D.Performed By: #### [facility] #### [place] [address] USAIUD Removalon 85-65-6856XdckcjhoheKarina Burgess MA 07/09/2025 2:05 PM IUD Removal [...] schedule for bilateral salpingectomy.KRISTAL DouglasUS OB TRANSVAGINALon 78-89-6095[place]oe[place], [place] [address] Ultrasound Report Signed Patient: SOFIA OLIVARES MR#: [id number] : 1990 Acct:[id number] Age/Sex: 35 / F ADM Date: 07/09/25 Loc: US Attending Dr: Sudhir Brooks D.O. Ordering Physician: Sudhir Brooks D.O. Date of Service: 07/09/25 Procedure(s): US OB transvaginal Accession Number(s): [id number] cc: Sudhir Brooks D.O.; YIFAN MURRAY [place] [address] Patient Name: SOFIA OLIVARES MRN: [id number] date: 1990 Sex: F Assigned Patient Location: US Current Patient Location: US Accession/Order Number: [id number] Exam Date: 07/09/2025 14:32 Report Date: 07/09/2025 [...] Jr., D.O. 07/09/2025 3:10 PM Dictation Location: [place] [address] Electronically authenticated by: [id number] Y Date: 07/09/2025 15:10 Dictated By: Ricardo Umanzor M.D. Signed By: 07/09/25 1530 DD/ 1510 TD/TT: Client Support Administrator:TBHRadiology, Radiologist, - 07/09/2025 [place] [address] Ultrasound Report Signed Patient: SOFIA OLIVARES MR#: [id number] : 1990 Acct:[id number] Age/Sex: 35 / F ADM Date: 07/09/25 Loc: US Attending Dr: Sudhir Brooks D.O. Ordering Physician: Sudhir Brooks D.O. Date of Service: 07/09/25 Procedure(s): US OB transvaginal Accession Number(s): [id number] cc: Sudhir Brooks D.O.; YIFAN MURRAY [place] [id number] Patient Name: SOFIA OLIVARES MRN: [id number] date: 1990 Sex: F Assigned Patient Location: US Current Patient Location: US Accession/Order Number: [id number] Exam Date: 07/09/2025 14:32 Report Date: 07/09/2025 [...] Jr., D.O. 07/09/2025 3:10 PM Dictation Location: [place] [address] Electronically authenticated by: [id number] Y Date: 07/09/2025 15:10 Dictated By: Ricardo Umanzor M.D. Signed By: 07/09/25 1530 DD/ 1510 TD/TT: Client Support Administrator: KRISTAL HealthcareRadiology Study observation (narrative)NOMS HealthcareUS OB TRANSVAGINALOrdered By: Radiologist Radiology on 84-52-6577FGQG [facility] Work Phone: [facility] PREG QUANT HCGon 79-89-2617XEL RMCAPABRSRWV96 mIU/mLNOMS HealthcareComment on above:5-50 0.2-1 WEEK 50-500 1-2 WEEKS 100-5,000 2-3 WEEKS 500-10,000 3-4 WEEKS 1,000-50,000 4-5 WEEKS 10,000-100,000 5-6 WEEKS 15,000-200,000 6-8 WEEKS 10,000-100,000 2-3 MONTHS CLINISYNCBarton County Memorial HospitalED Note-Physicianon 56-54-5660AM Note-PhysicianBasic Information Time Seen: Chucho Kwon DO [...] cough for her. Reports that he tried kuqi-hyl-qnvaydx medications, with no relief of her symptoms. [...] and Complexity of Problems Differential Diagnosis: [] [facility] Data External documents reviewed: [] My EKG interpretation: [] My CT interpretation: [] My X-ray interpretation: Reviewed My Ultrasound interpretation: [] Decision rules/scores evaluated: [] Discussed with: [] Treatment and Disposition ED Course: 32-year-old female reports emergency department chief complaint of cough that is been going since a month ago. Reports that it is not getting better. Reports that she has tried cqmg-woi-ggbrbdg medications without much relief of her symptoms. Reports that she is still coughing. Denies any recent antibiotic use. Reports that she has tried tluv-beh-gguehwl medication without relief. Denies any fevers or [...] antibiotics and medication as prescribed. Continue take mcuy-awk-opltjbi medications. Discussed return precautions. Follow-up with your [...] day(s), # 6 tab(s), Refills(s) 0, Pharmacy: [facility], 294 (more content not included)...[facility] CenterComment on above:Result Comment: Electronically Signed By: Tony Hamlin PA-C\.br\Date and Time Signed: 10/19/2320:25 EST\.br\Electronically Co-Signed By: Chucho Kwon DO\.br\Date and Time Co-Signed: 10/26/22 07:09 ESTCoding Summary.on 10-22-2022 Coding Summary. CD:[id number]+PGhlYWQ+UB0NBJWtU45cnUVjuC3SF0vQJT3OROSHKEKIGC7JBA4sh KG6VXdvP9UzewMn [file] cHNl (more content not included)...[facility] CenterXR Chest 2 Viewson 64-89-0681IU Chest 2 ViewsExam Date/Time: 10/19/2022 18:12 EST [...] Milton Ochoa M.D. Transcribed by: LACY Technologist: [facility] Medical CenterConsent for Treatmenton 98-60-5748Dlxeuqb for Treatment [id number]#1.00CD:[address] [place], [place] [address]Discharge Instructionson 28-58-5261Cojinynte Instructions [id number]:127[facility] Clinical Summaryon 02-70-1540NE Clinical Summary [place] [id number] ED Clinical Summary Person Information Name: SO[facility]IA [facility]AN[facility] Age: 32 Years : 1990 Sex: Female Language: Liberian PCP: Joaquim Osuna DO Marital Status: Single Phone: [phone] Visit Id: Visit Reason: Sinus Pain/Congestion; Cough; [...] 10/19/2022 18:40:12 ADDRESS: [address] [facility] [id number] PHYS DOC NOTES: MEDICAL INFORMATION: Prescriptions Given: New Medications [facility], [address], [place] [id number], [phone] azithromycin (azithromycin 250 mg Tab 5-day Dose Pack (Z-Abe)) 1 Packets By Mouth As Directed for 5Days. as directed on package labeling. Refills: 0. predniSONE (predniSONE 50 mg Tab) 1 Tablets By Mouth every day for 5 Days. Refills: 0. Medications to Continue with No Changes Other Medications acetaminophen-hydrocodone ([place] 325 mg-5 mg oral tablet) 1-2 tab(s) [...] Acute Bronchitis, Adult; Upper Respiratory Infection, Adult, Wckr-wm-Bafj Follow up: With: Address: When: Joaquim Paulson, [address] [place] [address] [employer] (1) In 3 days 10/22/2022 Comments: Follow-up with your primary care provider in 3 to 5 days. If symptoms worsen, do not improve, or new symptoms arise please report back to emergency department for further evaluation. DIAGNOSIS: BronchitisNormalFisher Callahan Medical CenterED Patient Education Noteon 73-49-1612YC Patient Education NoteInfectious Disease Upper Respiratory Infection, [...] other clear broths. General instructions ? Take uieq-gwx-akrpepk and prescription medicines only as told by [...] not have soap and water, use hand clinical documentation specialist. ? Avoid touching your mouth, face, [...] get better within 7?10 days. ? Take jela-ozg-beyadlg and prescription medicines only as told by your doctor. This information is not intended to replace advice given to you by your health care provider. Make sure you discuss any questions you have with your health care provider. Document Released: 03/21/2009 Document Revised: 10/11/2019 Document Reviewed: 05/26/2018 [employer] Patient Education ? 2019 [employer] Pulmonary Medicine Acute Bronchitis, Adult Acute [...] breath. ? A fe (more content not included)...[facility] Patient Summaryon 28-76-5330DV Patient Summary [place] [id number] Patient Discharge Instructions Person Information Name: SOFIA ARANGO Age: 32 Years Arrival Date: 10/19/2022 16:52:07 Discharge Diagnosis: Bronchitis Primary Care Physician: Joaquim Osuna DO Provider Information Primary Provider: Chucho Kwon DO Advanced Intake Coordinator:None The exam and treatment you received in the Emergency Department were for an urgent problem and are not intended as complete care. It is important that you follow up with a doctor, nurse practitioner,or physician?s daycare assistant for ongoing care. If your symptoms [...] Link Nasir Paulson, [address] [place] [address] [employer] (1) In 3 days 10/22/2022 Comments: Follow-up [...] Acute Bronchitis, Adult; Upper Respiratory Infection, Adult, Ethz-wq-Rwrc A MESSAGE TO ALL PATIENTS REGARDING OPIOIDS PRESCRIPTION OPIOIDS: WHAT YOU NEED TO KNOW Prescription opioids can be used to help relieve xnvxroca-et-qgeato pain and are often prescribed following a [...] your community drug take- back program or [employer] mail-back program, or flush them down the toilet, following guidance from the Food and Drug Administration (www.fda.gov/Drugs/ResourcesForYou). ? Visit www.cdc.gov/drugoverdose to learn about the risk (more content not included)...[facility] Medical CenterMICRO OTHER TESTSOrdered By: Tamar Banks on 82-59-3184Rmwgz COV Int NEG CtlPass (10/19/22 5:12 PM)NormalST. [facility] Man SeroRapid COV Int POS CtlPass (10/19/22 5:12 PM)NormalST. JOHN RE[facility] Man SeroSARS-CoV+SARS-CoV-2 (COVID-19) Ag IA.rapid Ql (Resp)Not Detected (10/19/22 5:12 PM)NormalNot DetectedST. JOHN RE[facility]ABIL[facility] Man SeroRapid COVID Antigen (MC)on 43-44-0562Ohmrg COV Int NEG CtlPassNormalSycamore Medical CenterComment on above:Performed By: #### [id number] #### [facility] [address], [place] [address]Gyytn COV Int POS CtlPassNormalSycamore Medical Center Comment on above:Performed By: #### [id number] #### [facility] [address], [place] [address]KJJL-HpO+SARS-CoV-2 (COVID-19) Ag IA.rapid Ql (Resp)Not detectedNormalNot DetectedSycamore Medical CenterComment on above:Result Comment: The HubChillaitor? System for Rapid Detection of SARS-CoV-2 is [...] is terminated or revoked sooner.Performed By: #### [id number] #### [facility] [address], [place] [address]IYZPLEAH TO INTENSIVE CARE UNIT FOR CONDITION OF INTEREST:FIND:PT:NONRegency Hospital Cleveland WestComment on above:Performed By: #### [id number] #### [facility] [address] [place] [id number] IN A HEALTHCARE SETTING:FIND:PT:NONRegency Hospital Cleveland WestComment on above:Performed By: #### [id number] #### [facility] [address] [place], [place] [id number] TEST FOR CONDITION OF INTEREST:FIND:PT:[facility] YoungstownComment on above:Performed By: #### [id number] #### [facility] [address] [place], [place] [id number] SYMPTOMS RELATED TO CONDITION OF INTEREST:FIND:PT:YESNormal [facility] Medical CenterComment on above:Performed By: #### [id number] #### [facility] [address] [place], [place] [address]HOSPITALIZED FOR CONDITION OF INTEREST:FIND:PT:[facility] YoungstownComment on above:Performed By: #### [id number] #### [facility] [address] [place] [id number] STATUS:FIND:PT:[facility] Comment on above:Performed By: #### [id number] #### [facility] [address] [place] [id number] IN A CONGREGATE CARE SETTING:FIND:PT:NONReg[facility] Hospital Cleveland WestComment on above:Performed By: #### [id number] #### [facility] [address] [place] [id number] AUTO DIFFon 94-28-4987JYUK #0.0 103/ulNormal0.0-0.1[facility] HospitalComment on above:Performed By: #### CBC #### [facility] [address] [place] [address] [address] Marianne MojicaBasophils/100 WBC (Bld)0.4 %Normal0.2-2.0[facility] Comment on above:Performed By: #### CBC #### [facility] [address] [place] [address] Dr. Marianne Choudhary #0.1 103/ulNormal0.0-0.7The [facility] HospitalComment on above: Performed By: #### CBC #### [facility] [address] [place] [address] Dr. Marianne Rossosinophils/100 WBC (Bld)1.1 %Normal0.9-7.0[facility] Comment on above:Performed By: #### CBC #### [facility] [address] [place] [address] Dr. Marianne Rossrythrocyte distribution width (RBC) [Ratio]13.2 %Xehqym10.0-15.0 [facility] HospitalComment on above:Performed By: #### CBC #### [facility] [address] [place] [address] Dr. Marianne MojicaHematocrit (Bld) [Volume fraction]33.5 %Critically low36.0-48.[address]Comment on above:Performed By: #### CBC #### [facility] [address] [place] [address] Dr. Marianne MojicaHemoglobin (Bld) [Mass/Vol]11.1 g/dLCritically low12.0-16.0[facility] HospitalComment on above:Performed By: #### CBC #### [facility] [address] [place] [address] Dr. Marianne Hernandez #0.05 10e3/ulCritically high0.00-0.03[facility] Comment on above:Performed By: #### CBC #### [facility] [address] [place] [address] Dr. Yilan ChangIG %0.5 %Normal0.0-0.5The [facility] [address] HospitalComment on above: Performed By: #### CBC #### [facility] [address] [place] [address] Dr. Marianne Matthews #2.8 103/ulNormal1.2-3.8[address] [facility] [address] HospitalComment on above:Performed By: #### CBC #### [facility] [address] [place] [address] Dr. Marianne Silverhocytes/100 WBC (Bld)29.9 %Tkqhbs82.5-60.0[facility] [address] HospitalComment on above:Performed By: #### CBC #### [facility] [address] [place] [address] Dr. Marianne Vasquez DIFF REQNONormalThe Wilson Street HospitalComment on above: Performed By: #### CBC #### [facility] [address] [place] [address] Dr. Marianne Veloz (RBC) [Entitic mass]31.6 xdLlbyxq09.7-34.0[address] [facility] [address] HospitalComment on above:Performed By: #### CBC #### [facility] [address] [place] [address] Dr. Marianne Peacock (RBC) [Mass/Vol]33.1 g/wXLnfvxe52.9-35.2The [facility] [address] HospitalComment on above:Performed By: #### CBC #### [facility] [address] [place] [address] Dr. Marianne Oliva (RBC) [Entitic vol]95.4 dZBqziyd50.0-99.0[address] [facility] [address] HospitalComment on above:Performed By: #### CBC #### [facility] [address] [place] [address] Dr. Marianne Tubbs #0.7 103/ulNormal0.3-0.8The [facility] [address] HospitalComment on above:Performed By: #### CBC #### [facility] [address] [place] [address] Dr. Yilan ChangMonocytes/100 WBC (Bld)7.3 %Normal1.7-12.0[facility] Comment on above:Performed By: #### CBC #### [facility] [address] [place] [address] Dr. Marianne Dacosta #5.6 103/ulNormal1.4-6.5The Wilson Street HospitalComment on above:Performed By: #### CBC #### [facility] [address] [place] [address] Dr. Marianne Smythutrophils/100 WBC (Bld)60.8 %Ljpoiy88.0-75.0The [facility] [address] HospitalComment on above:Performed By: #### CBC #### [facility] [address] [place] [address] Dr. Marianne Paz mean volume (Bld) [Entitic vol]9.8 fLNormal9.5-13.5The [facility] [address] HospitalComment on above:Performed By: #### CBC #### [facility] [address] [place] [address] Dr. Marianne MojicaPLT188 103/slGkvupj600-696Eam Wilson [address] HospitalComment on above: Performed By: #### CBC #### [facility] [address] [place] [address] Dr. Marianne SanchezC3.51 106/ulCritically low4.20-5.40The [facility] [address] HospitalComment on above:Performed By: #### CBC #### [facility] [address] [place] [address] Dr. Marianne MojicaWBC9.2 103/ulNormal4.0-11.0The [facility] [address] HospitalComment on above: Performed By: #### CBC #### [facility] [address] [place] [address] Dr. Marianne Adorno AUTO DIFFon [id number] #0.0 103/ulNormal0.0-0.1The [facility] [address] HospitalComment on above:Performed By: #### CBC #### [facility] [address] [place] [address] Dr. Marianne MojicaBasophils/100 WBC (Bld)0.2 %Normal0.2-2.0The [facility] Comment on above:Performed By: #### CBC #### [facility] [address] [place] [address] Dr. Marianne Choudhary #0.1 103/ulNormal0.0-0.7The [facility] [address] HospitalComment on above: Performed By: #### CBC #### [facility] [address] [place] [address] Dr. Marianne Rossosinophils/100 WBC (Bld)0.6 %Critically low0.9-7.0The [facility] [address] HospitalComment on above:Performed By: #### CBC #### [facility] [address] [place] [address] Dr. Marianne Rossrythrocyte distribution width (RBC) [Ratio]13.2 %Zylzhs00.0-15.[address] HospitalComment on above:Performed By: #### CBC #### [facility] [address] [place] [address] Dr. Marianne MojicaHematocrit (Bld) [Volume fraction]37.2 %Eamwsr08.0-48.0The [facility] [address] HospitalComment on above:Performed By: #### CBC #### [facility] [address] [place] [address] Dr. Marianne MojicaHemoglobin (Bld) [Mass/Vol]12.2 g/zIHamgqt09.0-16.0The [facility] [address] HospitalComment on above:Performed By: #### CBC #### [facility] [address] [place] [address] Dr. Marianne Hernandez #0.04 10e3/ulCritically high0.00-0.03The [facility] Comment on above:Performed By: #### CBC #### [facility] [address] [place] [address] Dr. Marianne Hernandez %0.4 %Normal0.0-0.5The [facility] HospitalComment on above: Performed By: #### CBC #### [facility] [address] [address] [address] Marianne Matthews #2.6 103/ulNormal1.2-3.8The [facility] [address] HospitalComment on above:Performed By: #### CBC #### [facility] [address] [place] [address] Dr. Marianne Olguinmphocytes/100 WBC (Bld)27.0 %Tooxtt90.5-60.0The [facility] [address] HospitalComment on above:Performed By: #### CBC #### [facility] [address] [place] [address] Dr. Marianne Vasquez DIFF REQNONormalThe Wilson Street HospitalComment on above: Performed By: #### CBC #### [facility] [address] [place] [address] Dr. Marianne Peacock (RBC) [Entitic mass]31.1 tfPevkap64.7-34.0The [facility] [address] HospitalComment on above:Performed By: #### CBC #### [facility] [address] [place] [address] Dr. Marianne Peacock (RBC) [Mass/Vol]32.8 g/nLZbakks47.9-35.2The [facility] [address] HospitalComment on above:Performed By: #### CBC #### [facility] [address] [place] [address] Dr. Marianne Peacock (RBC) [Entitic vol]94.9 uMPfymer54.0-99.0The [facility] [address] HospitalComment on above:Performed By: #### CBC #### [facility] [address] [place] [address] Dr. Marianne Tubbs #0.8 103/ulNormal0.3-0.8The [facility] [address] HospitalComment on above:Performed By: #### CBC #### [facility] [address] [place] [address] Dr. Marianne Lyonsocytes/100 WBC (Bld)7.8 %Normal1.7-12.0The [facility] Comment on above:Performed By: #### CBC #### [facility] [address] [place] [address] Dr. Marianne SmythUT #6.2 103/ulNormal1.4-6.5The [facility] [address] HospitalComment on above:Performed By: #### CBC #### [facility] [address] [place] [address] Dr. Marianne Smythutrophils/100 WBC (Bld)64.0 %Pqgjtj43.0-75.0The [facility] [address] HospitalComment on above:Performed By: #### CBC #### [facility] [address] [place] [address] Dr. Marianne MojicaPlatelet mean volume (Bld) [Entitic vol]10.5 fLNormal9.5-13.5The [facility] [address] HospitalComment on above:Performed By: #### CBC #### [facility] [address] [place] [address] Dr. Marianne MojicaPLT210 103/qhMinxhx286-074Ouo [facility] [address] HospitalComment on above: Performed By: #### CBC #### [facility] [address] [place] [address] Dr. Marianne MojicaRBC3.92 106/ulCritically low4.20-5.40The [facility] on above:Performed By: #### CBC #### [facility] [address] [place] [address] Dr. Marianne MojicaWBC9.7 103/ulNormal4.0-11.0The [facility] [address] HospitalComment on above: Performed By: #### CBC #### [facility] [address] [place] [address] Dr. Marianne MojicaCovid-19 PCR (CVDTB)on [id number]-CoV-2 (COVID-19) RNA VIRA+probe Ql (Unsp spec)Not detectedNormalNOT DETECTEDThe [facility] Comment on above:Result Comment: When diagnostic [...] for this test is supported by the [employer] and Human Service's declaration that [...] longer be used).Performed By: #### RPRQ #### [facility] [address] [place] [address] Carlos KarenDRUG SCREEN RAPID (URINE)on [id number]RExr Bellevue HospitalComment on above:Performed By: #### RPRQ #### [facility] [address] [place] [address] Carlos KarenBARNegativeNormalNEGATIVESelect Medical [facility]ty [facility] HospitalComment on above: Performed By: #### RPRQ #### [facility] [address] [place] [address] Carlos KarenBUPNegativeNormalNEGATIVECleveland Clinic Avon HospitalComment on above: Performed By: #### RPRQ #### [facility] [address] [place] [address] Carlos KarenBZONegativeNormalNEGATIVESelect Medical [facility]ty [facility] HospitalComment on above: Performed By: #### RPRQ #### [facility] [address] [place] [address] Carlos KarenCOCNegativeNormalNEGATIVESelect Medical [facility]ty [facility] HospitalComment on above: Performed By: #### RPRQ #### [facility] [address] [place] [address] Carlos KarenCUT-OFFSSEE BELOWNormalThe [facility] Street HospitalComment on above:Result Comment: AMP (Amphetamine): 500ng/mL, BAR (Barbituates): 200 ng/mL, BZO (Benzodiazepines): 150 ng/mL, BUP (Buprenorphine): 10 ng/mL, BREE (Cocaine): 150 ng/mL, mAMP (Methamphetamine): 500 ng/mL, MTD (Methadone): 200 ng/mL, OPI (Opiates): 100 ng/mL, OXY (Oxycodone): 100 ng/mL, PCP (Phencyclidine): 25 ng/mL, PPX (Propoxyphene): 300 ng/mL, THC (Cannabinoids): 50 ng/mL, TCA (Trycyclic Antidepressants): 300 ng/mLPerformed By: #### RPRQ #### [facility] [address] [place] [address] Carlos KarenDRUG CUT HEADERDRUG CLASS TEST SYSTEM CUT-OFF CONCENTRATIONS ARE FOLLOWS:NormalThe [facility] Street HospitalComment on above:Performed By: #### RPRQ #### [facility] [address] [place] [address] Carlos KarenmAMPNegativeNormalNEGATIVESelect Medical Specialty [facility] HospitalComment on above: Performed By: #### RPRQ #### [facility] [address] [place] [address] Carlos KarenMTDNegativeNormalNEGATIVECleveland Clinic Avon HospitalComment on above: Performed By: #### RPRQ #### [facility] [address] [place] [address] Carlos KarenOPINegativeNormalNEGATIVECleveland Clinic Avon HospitalComment on above: Performed By: #### RPRQ #### [facility] [address] [place] [address] Carlos KarenOXYNegativeNormalNEGATIVECleveland Clinic Avon HospitalComment on above: Performed By: #### RPRQ #### [facility] [address] [place] [address] Carlos KarenPCPNegativeNormalNEGATIVESelect Medical [facility]ty [facility] HospitalComment on above: Performed By: #### RPRQ #### [facility] [address] [place] [address] Carlos KarenPPXNegativeNormalNEGATIVESelect Medical Specialty [facility] HospitalComment on above: Performed By: #### RPRQ #### [facility] [address] [address] Carlos GarridoenTCANegativeNormalNEGATIVECleveland Clinic Avon HospitalComment on above: Performed By: #### RPRQ #### [facility] [address] [place] [address] Carlos GarridoenTHCNegativeNormalNEGATIVECleveland Clinic Avon HospitalComment on above: Performed By: #### RPRQ #### [facility] [address] [place] [address] Carlos GarridoenTYPE AND SCREENon [id number] AND SCREENNegativeNormBlanchard Valley Health System [facility]ard [facility] HospitalComment on above:Performed By: #### RPRQ #### [facility] [address] [place] [address] Carlos GarridoenUS PREG BIOPHY W NON STRESSon [id number] PREG BIOPHY W NON STRESS EXAMINATION: US [...] Electronically authenticated by: AYDE MIN Date: 2021-10-07 13:52[facility] HospitalCHLAMYDIA/GONOCOCCUS VIRA (SWAB/URINE/PAPon [id number] trachomatis, NAANegativeNormalNegativeCleveland Clinic Avon HospitalComment on above: Performed By: #### CT/NGNA #### [facility] [address] [place] [address] Dr. Marianne Smythisseria gonorrhoeae, NAANegativeNormalNegativeCleveland Clinic Avon HospitalComment on above:Performed By: #### CT/NGNA #### [facility] [address] [place] [address] Dr. Marianne MojicaVAGINITIS/VAGINOSIS DNA PROBEon 61-34-5537Jswhlde speciesNegative NormalNegativeCleveland Clinic Avon HospitalComment on above:Performed By: #### RUBIGG #### [facility] [address] [place] [address] Carlos aGrridoenGardnerella vaginalisNegativeSanta FeNegativeCleveland Clinic Avon Hospital Comment on above:Performed By: #### RUBIGG #### [facility] [address] [place] [address] Carlos KarenTrichomonas vaginalisNegativeSanta FeNegativeCleveland Clinic Avon Hospital Comment on above:Performed By: #### RUBIGG #### [facility] [address] [place] [address] Carlos KarenGROUP B STREP CULTUREon 10-02-2021. agalactiae Ag Ql (Unsp spec) Culture Observations: NEGATIVE FOR GROUP B STREPTOCOCCUS.NormalThe [facility] Street HospitalComment on above: Performed By: #### GBSCX #### [facility] [address] [place] [address] Dr. Marianne Figueroa PREG PLACENTAon [id number] PREG PLACENTAEXAMINATION: US PREG PLACENTA HISTORY: Placenta previa without hemorrhage COMPARISON: Ultrasound anatomy 06/04/2021 FINDINGS: PLACENTA: Posterior with lower margin 2.5 cm from internal os. Several small anechoic areas within placenta favoring venous lakes. CERVIX LENGTH: 4.6 cm in length; closed. HEART RATE: 126 bpm OTHER: None. IMPRESSION: 1. Posterior placenta which is no longer low-lying. Electronically authenticated by: AYDE MIN Date: 2021-07-29 12:05[facility] HospitalGLUCOSE - 1HRon [id number] [Mass/Vol]71 mg/dLCritically xzz81-011VhwCleveland Clinic Avon HospitalComment on above:Performed By: #### RUBIGG #### [facility] [address] [place] [address] Carlos KarenHEMOGRAM AND PLATELon 55-30-1391Ugecyrczlt (Bld) [Volume fraction] 36.2 %Wtnnae72.0-48.0The [facility] [address] HospitalComment on above:Performed By: #### RUBIGG #### [facility] [address] [place] [address] Carlos KarenHemoglobin (Bld) [Mass/Vol]11.8 g/dLCritically low12.0-16.0[facility] HospitalComment on above:Performed By: #### FLYG #### [facility] [address] [place] [address] Carlos KarenH (RBC) [Entitic mass]31.4 agNkcqfr44.7-34.0[facility] Comment on above:Performed By: #### FLYG #### [facility] [address] [place] [address] Carlos KarenMCHC (RBC) [Mass/Vol]32.6 g/mUXmnhqq97.9-35.2[facility] Comment on above:Performed By: #### FLYG #### [facility] [address] [place] [address] Carlos GarridoenMCV (RBC) [Entitic vol]96.3 hVBnwuig08.0-99.0[facility] Comment on above:Performed By: #### FLYG #### [facility] [address] [place] [address] Carlos WiccaOXN076 103/sqRhhorm718-014Dyq [facility] HospitalComment on above: Performed By: #### FLYG #### [facility] [address] [place] [address] Carlos KarenRBC3.76 106/ulCritically low4.20-5.40The [facility] HospitalComment on above:Performed By: #### FLYG #### [facility] [address] [place] [address] Carlos KarenWBC9.1 103/ulNormal4.0-11.0[facility] HospitalComment on above: Performed By: #### FLYG #### [facility] [address] [place] [address] Carlos GarridoenUS PREG ANATOMY SINGLEon 91-91-1274MG PREG ANATOMY SINGLE EXAMINATION: US PREG ANATOMY [...] 59th percentile by ultrasound and expected FL/AC: 0.871169 FL/BPD: 0.951441 HC/AC: 1.453941 GESTATIONAL AGE: Age by EDC: 20 weeks, 0 days NELA by EDC: 10/22/2021 Age by current US: 20 weeks, 0 days NELA by current US: 10/22/2021 IMPRESSION: 1. Single live intrauterine with growth detailed above. 2. Low-lying fundal/posterior placenta. Electronically authenticated by: AYDE MIN Date: 2021-06-04 12:07[facility] HospitalAF MATERNAL FOR SPINA BIFIDAon [id number] MoM0.95NoSelect Medical Specialty Hospital - ColumbusComment on above:Performed By: #### AFPMAT #### [facility] [address] [address] Carlos KarenAFP Value37.7 ng/mLNCrystal Clinic Orthopedic CenterComment on above: Performed By: #### AFPMAT #### [facility] [address] [address] Carlos KarenAFP, Serum for Spina BifidaReportNoSelect Medical Specialty Hospital - ColumbusComment on above:Performed By: #### AFPMAT #### [facility] [address] [place] [address] Carlos KarenCommentOhioHealth Hardin Memorial HospitalComharbor beach community hospital on above:Result Comment: Ivy Lincoln, Ph.D., [facility] Director . References: Available Upon Request. . Multiples Of Median Cutoffs For AFP Elevations Sommer 2.5 Black 2.8 IDD 2.0 Twins 4.5 Abbreviation Definitions IDD - Insulin Dep Diabetes OSBR - Open Spina Bifida Risk . For further inquiries contact [employer] at [phone].Performed By: #### AFPMAT #### [facility] [address] [place] [address] Carlos Landast Age Collection Date17.6 weeksMet[facility]Health [facility] on above:Performed By: #### AFPMAT #### [facility] [address] [place] [address] Carlosgaurang GarridoenGestat, Age Based onUltrasKing's Daughters Medical Center OhioComharbor beach community hospital on above:Result Comment: 11:0 on 04/02/2021 Recalculations are not recommended when gestational dating by LMP and ultrasound are within 10 days.Performed By: #### AFPMAT #### [facility] [address] [place] [address] Carlos KarenInsulin Dep DiabetesNoNormalCleveland Clinic Avon HospitalComharbor beach community hospital on above: Performed By: #### AFPMAT #### [facility] [address] [place] [address] Carlos KarenInterpretationOhioHealth Hardin Memorial HospitalComharbor beach community hospital on above: Result Comment: Interpretation: Screen [...] Customer Services to discuss available options. The [employer] recommends amniocentesis be offered to women age 35 and older.Performed By: #### AFPMAT #### [facility] [address] [address] Carlos KarenMaternal Age at EDD31.7 yrNoSelect Medical Specialty Hospital - ColumbusComment on above:Performed By: #### AFPMAT #### [facility] [address] [address] Carlos KarenMultiple GestationNoNCrystal Clinic Orthopedic CenterComment on above: Performed By: #### AFPMAT #### [facility] [address] [address] Carlos KarenOSBR Risk 1 [id number] Riverside Methodist HospitalComment on above: Performed By: #### AFPMAT #### [facility] [address] [place] [address] Carlos KarenPDF.NormalCleveland Clinic Avon HospitalComment on above:Performed By: #### AFPMAT #### [facility] [address] [address] Carlos KarenRaceCaucasianNCrystal Clinic Orthopedic CenterComment on above:Performed By: #### AFPMAT #### [facility] [address] [place] [address] Carlos KarenTest Results:NegativeOhioHealth Riverside Methodist HospitalComment on above: Performed By: #### AFPMAT #### [facility] [address] [address] Carlos KarenCult,Urineon [id number],UrineSpecimen Description .Random Urine Special Requests NOT REPORTED Culture NO GROWTH Report Status FINAL 05/01/2021NoSt. Rita's HospitalComment on above: Performed By: #### URC #### [facility] [address] [place] [address] Forest Engineer: Sekou Fraser MD [facility] [address] [place] [address] Forest Engineer: Campos Chandra MDUS PREG PLACENTAon [id number] PREG PLACENTAEXAM: US PREG PLACENTA HISTORY: Abnormal [...] Electronically authenticated by: YURIY WISE Date: 2021-04-30 23:35[facility] HospitalABO/RHOrdered By: Venecia Patterson on [id number]/RhPositiveUniversity Hospitals [facility] Flipter Phone: [facility] Mer[facility] HospitalFurnésh Phone: aBO/Rh(D)on 01-28-4530UEH/Rh(D)PositiveNormKettering Health DaytonComment on above:Performed By: #### ABRH #### [facility] [address] [place] [address] Forest Engineer: Campos Chandra [facility] Auto DifferentialOrdered By: Venecia Patterson on [id number] Eos #0.00[facility] [employer] Phone: absolute Immature GranulocyteNOT REPORTEDUniversity Hospitals Tripoint Medical Center Fl[employer] Phone: absolute Lymph #2.70[facility] Mer[facility] HospitalFurnésh Phone: absolute Nash #0.50[facility] [employer] Phone: basophils (Bld) [#/Vol]0.00 10*3/uLOur Lady Of Mercy HospitalFurnésh Phone: basophils/100 WBC (Bld)0 %0 - 2 %[facility] HospitalBooodl Phone: differential TypeYESMerc High [employer] Work Phone: eosinophils/100 WBC (Bld)0 %0 - 5 %[employer] Phone: Hematocrit (Bld) [Volume fraction]36.7 %36 - 46 %[employer] Phone: Hemoglobin.gastrointestinal spec 1 Ql (Stl)12.5 g/dL 12.0 - 16.0 g/dLFluorofinder Phone: Immature GranulocytesNOT REPORTED0 %[employer] Phone: lymphocytes/100 WBC (Bld)30 %15 - 40 %[employer] Phone: MCH (RBC) [Entitic mass]30.6 pg26 - 34 pgFluorofinder Phone: MCHC (RBC) [Mass/Vol]34.2 g/dL31 - 37 g/dLFluorofinder Phone: MCV (RBC) [Entitic vol]89.7 fL80 - 100 fLFluorofinder Phone: Monocytes/100 WBC (Bld)5 %4 - 8 %[employer] Phone: NRBC AutomatedNOT REPORTEDper 100 WBCFluorofinder Phone: platelet distribution width (Bld) [Ratio]12.8 %12.1 - 15.2 %[employer] Phone: platelet EstimateNOT REPORTEDMerFurnésh Phone: platelet mean volume (Bld) [Entitic vol]NOT REPORTED 6.0 - 12.0 fLFluorofinder Phone: platelets (Bld) [#/Vol]271 10*3/uLFluorofinder Phone: RBC (Bld) [#/Vol]4.09 10*6/uL4.0 - 5.2 m/[employer]Global Phone: RBC (Bld) [#/Vol]NOT REPORTEDOur Lady Of Mercy HospitalFurnésh Phone: segmented neutrophils/100 WBC (Bld)65 %47 - 75 %[facility] HospitalBooodl Phone: segs Absolute5.70[facility] [employer] Phone: WBC (Bld) [#/Vol]8.9 10*3/uLOur Lady Of Mercy HospitalFurnésh Phone: WBC (Bld) [#/Vol]NOT REPORTEDOur Lady Of Mercy HospitalFurnésh Phone: [facility] [employer] Phone: cBC with Diffon [id number]. Basophil0.00 k/uLNormal 0.0-0.2MAdena Health SystemComment on above:Performed By: #### MG, CMPX, CDP #### [facility] [address] [place] [address] Forest Engineer: Eboni Wong.Neutrophil (Seg)5.70 k/uLNormal2.5-7.0[facility] Medical CenterComment on above:Performed By: #### MG, CMPX, CDP #### [facility] [address] [place] [address] Forest Engineer: Nilda Wong Diff PerformedYESNoSt. Rita's Hospital Comment on above:Performed By: #### MG, CMPX, CDP #### [facility] [address] [place] [address] Forest Engineer: Campos Chandra MDBasophils/100 WBC (Bld)0 %Normal0-2MAdena Health SystemComment on above:Performed By: #### MG, CMPX, CDP #### [facility] [address] [id number] Forest Engineer: Campos Chandra MDEosinophils (Bld) [#/Vol]0.00 10*3/uLNormal0.0-0.4 [facility] Medical CenterComment on above:Performed By: #### MG, CMPX, CDP #### [facility] [address] [id number] Forest Engineer: Campos Chandra MDEosinophils/100 WBC (Bld)0 %Normal0-5[facility] Medical CenterComment on above:Performed By: #### MG, CMPX, CDP #### [facility] [address] [place] [address] Forest Engineer: Campos Chandra MDErythrocyte distribution width (RBC) [Ratio]12.8 % Hfvzhb49.1-15.2MAdena Health SystemComment on above:Performed By: #### MG, CMPX, CDP #### [facility] [address] [place] [address] Forest Engineer: Campos Chandra MDHematocrit (Bld) [Volume fraction]36.7 %Normal 36-46[facility] Geneva Medical CenterComment on above:Performed By: #### MG, CMPX, CDP #### [facility] [address] [place] [address] Forest Engineer: Campos Chandra MDHemoglobin (Bld) [Mass/Vol]12.5 g/dLNormal 12.0-16.0[facility] Medical CenterComment on above:Performed By: #### MG, CMPX, CDP #### [facility] [address] [id number] Forest Engineer: Campos Chandra MDLymphocytes (Bld) [#/Vol]2.70 10*3/uLNormal1.0-4.8 [facility] Medical CenterComment on above:Performed By: #### MG, CMPX, CDP #### [facility] [address] [place] [address] Forest Engineer: Abner Wongmphocytes/100 WBC (Bld)30 %Lvrrdw54-72WzmhpUniversity Hospitals Geneva Medical CenterComment on above:Performed By: #### MG, CMPX, CDP #### [facility] [address] [id number] Forest Engineer: MELITON WongCH (RBC) [Entitic mass]30.6 [id number] Hospitals Geneva Medical CenterComment on above:Performed By: #### MG, CMPX, CDP #### [facility] [address] [place] [address] Forest Engineer: MELITON WongCHC (RBC) [Mass/Vol]34.2 g/yACqknjx26-47JxdhqUniversity Hospitals Geneva Medical CenterComment on above:Performed By: #### MG, CMPX, CDP #### [facility] [address] [place] [id number] Forest Engineer: MELITON WongCV (RBC) [Entitic vol]89.7 bYBeyzrk92-497YxhooUniversity Hospitals Geneva Medical CenterComment on above:Performed By: #### MG, CMPX, CDP #### [facility] [address] [place] [address] Forest Engineer: MELITON Wongonocytes (Bld) [#/Vol]0.50 10*3/uLNormal0.0-1.0 [facility] on above:Performed By: #### MG, CMPX, CDP #### [facility] [address] [place] [address] Forest Engineer: MELITON Wongonocytes/100 WBC (Bld)5 %Normal4-8University Hospitals Geneva Medical CenterComment on above:Performed By: #### MG, CMPX, CDP #### [facility] [address] [place] [address] Forest Engineer: Promise Wong (Seg)65 %Cunkmz27-05DejirUniversity Hospitals Geneva Medical CenterComment on above:Performed By: #### MG, CMPX, CDP #### [facility] [address] [place] [address] Forest Engineer: Kristin Wong (Bld) [#/Vol]271 10*3/oKOseeit049-488 University Hospitals Geneva Medical CenterComment on above:Performed By: #### MG, CMPX, CDP #### [facility] [address] [place] [address] Forest Engineer: NORIS Wong (d) [#/Vol]4.09 10*6/uLNormal4.0-5.2MAdena Health SystemComment on above:Performed By: #### MG, CMPX, CDP #### [facility] [address] [place] [address] Forest Engineer: LETTY Wong (d) [#/Vol]8.9 10*3/uLNormal3.5-11.0Sum[facility] Health Akron Campusment on above:Performed By: #### MG, CMPX, CDP #### [facility] [address] [place] [address] Forest Engineer: Eboni Wong.Imm.GranulocyteNOT REPORTEDNormal0.00-0.30 [facility] on above:Performed By: #### MG, CMPX, CDP #### [facility] [address] [place] [address] Forest Engineer: Macario Wong GranulocyteNOT DMKOKZXCTfqtmu7PhjnnUniversity Hospitals Geneva Medical CenterComment on above:Performed By: #### MG, CMPX, CDP #### [facility] [address] [place], [place] [phone] Forest Engineer: MELITON WongPVNOT REPORTEDNormal6.0-12.0University Hospitals Geneva Medical CenterComment on above:Performed By: #### MG, CMPX, CDP #### [facility] [address] [place], [place] [id number] Forest Engineer: SEBASTIAN Wong AutomatedNOT REPORTEDNormalUniversity Hospitals Geneva Medical CenterComment on above:Performed By: #### MG, CMPX, CDP #### [facility] [address] [place], [place] [id number] Forest Engineer: Minh Wongtelet EstimateNOT REPORTEDNormKettering Health DaytonComment on above:Performed By: #### MG, CMPX, CDP #### [facility] [address] [place], [place] [phone] Forest Engineer: NORIS Wong morphology finding Nom (Bld)NOT REPORTEDNormal University Hospitals Geneva Medical CenterComment on above:Performed By: #### MG, CMPX, CDP #### [facility] [address] [place] [address] Forest Engineer: LETTY Wong MorphologyNOT REPORTEDNoSt. Rita's HospitalComment on above:Performed By: #### MG, CMPX, CDP #### [facility] [address] [phone] Forest Engineer: NITESH Wongsteward health care system Metabolic Pr/rfx MGon [id number] [Moles/Vol]3.5 mmol/LLow3.7-5.3Mer[facility] Batson Children'S HospitalComment on above:Performed By: #### MG, CMPX, CDP #### [facility] [address] [place] [address] Forest Engineer: Campos Chandra MD(cont.)[facility] Geauga Medical CenterComment on above:Result Comment: Average GFR for 30-39 years old: 107 mL/min/1.73sq m Chronic Kidney Disease: <60 mL/min/1.73sq m Kidney failure: <15 mL/min/1.73sq m eGFR calculated using average adult body mass. Additional eGFR calculator available at: http://www.Five Apes.com/multiple_crcl_2012.htmPerformed By: #### MG, CMPX, CDP #### [facility] [address] [place] [phone] Forest Engineer: Campos Chandra MDAlbumin [Mass/Vol]3.8 g/dLNormal3.5-5.2MAdena Health SystemComment on above:Performed By: #### MG, CMPX, CDP #### [facility] [address] [place] [address] Forest Engineer: Campos Chandra MDAlkaline Phos56 U/LPdamif71-331CbxlhUniversity Hospitals Geneva Medical CenterComment on above:Performed By: #### MG, CMPX, CDP #### [facility] [address] [place] [address] Forest Engineer: Campos Chandra MDALT [Catalytic activity/Vol]13 U/LNormal5-33University Hospitals Geneva Medical CenterComharbor beach community hospital on above:Performed By: #### MG, CMPX, CDP #### [facility] [address] [place] [address] Forest Engineer: Campos Chandra MDAnion gap [Moles/Vol]10 mmol/LNormal9-17University Hospitals Geneva Medical CenterComharbor beach community hospital on above:Performed By: #### MG, CMPX, CDP #### [facility] [address] [place] [address] Forest Engineer: Campos Chandra MDAST [Catalytic activity/Vol]16 U/LNormal<32University Hospitals Geneva Medical CenterComharbor beach community hospital on above:Performed By: #### MG, CMPX, CDP #### [facility] [address] [place] [address] Forest Engineer: Campos Chandra MDBilirubin [Mass/Vol]0.23 mg/dLLow0.30-1.20University Hospitals Geneva Medical CenterComment on above:Performed By: #### MG, CMPX, CDP #### [facility] [address] [place] [phone] Forest Engineer: Campos Chandra MDBUN/CRE Ipsba77Ssbzoz4-43[facility] Comment on above:Performed By: #### MG, CMPX, CDP #### [facility] [address] [place] [address] Forest Engineer: NITESH Wongalcium [Mass/Vol]9.2 mg/dLNormal8.6-10.4University Hospitals Geneva Medical CenterComment on above:Performed By: #### MG, CMPX, CDP #### [facility] [address] [place] [address] Forest Engineer: NITESH Wonghloride [Moles/Vol]105 mmol/ERidyvg27-619UvdohUniversity Hospitals Geneva Medical CenterComment on above:Performed By: #### MG, CMPX, CDP #### [facility] [address] [place] [address] Forest Engineer: Campos Chandra MDCO2 [Moles/Vol]23 mmol/UEoneiz43-38WwfctUniversity Hospitals Geneva Medical CenterComment on above:Performed By: #### MG, CMPX, CDP #### [facility] [address] [place] [phone] Forest Engineer: NITESH Wongreatinine [Mass/Vol]0.44 mg/dLLow0.50-0.90University Hospitals Geneva Medical CenterComment on above:Performed By: #### MG, CMPX, CDP #### [facility] [address] [place], [place] [phone] Forest Engineer: Campos Sturtz, MDGFR, Amer>60Normal>60[facility] Comment on above:Performed By: #### MG, CMPX, CDP #### [facility] [address] [place] [address] Forest Engineer: Campos Chandra MDGFR,non Amer>60Normal>60[facility] HospitalComment on above:Performed By: #### MG, CMPX, CDP #### [facility] [address] [place] [address] Forest Engineer: Campos Chandra MDGlucose [Mass/Vol]90 mg/vBQbnygb46-10FoagrAdena Health SystemComment on above:Performed By: #### MG, CMPX, CDP #### [facility] [address] [place] [address] Forest Engineer: Campos Chandra MDProtein [Mass/Vol]7.0 g/dLNormal6.4-8.3MHolzer Health System HospitalComment on above:Performed By: #### MG, CMPX, CDP #### [facility] [address] [place] [address] Forest Engineer: MARCK Wongodium [Moles/Vol]138 mmol/VVavgpr373-969YnaocUniversity Hospitals Geneva Medical CenterComment on above:Performed By: #### MG, CMPX, CDP #### [facility] [address] [place] [address] Forest Engineer: Campos Chandra MDUrea nitrogen [Mass/Vol]8 mg/dLNormal6-20University Hospitals Geneva Medical CenterComment on above:Performed By: #### MG, CMPX, CDP #### [facility] [address] [place] [address] Forest Engineer: Campos Chandra MDAlbumin/Glob RatioNOT REPORTEDNormal1.0-2.5MerSt. Lawrence Health SystemComment on above:Performed By: #### MG, CMPX, CDP #### [facility] [address] [place] [address] Forest Engineer: MARCK Wongtaging:NOT REPORTEDNormKettering Health Dayton Comment on above:Performed By: #### MG, CMPX, CDP #### [facility] [address] [place] [address] Forest Engineer: NITESH Wongomprehensive Metabolic Panel w/ Reflex to MG Ordered By: Venecia Patterson on [id number] [Mass/Vol]3.8 g/dL3.5 - 5.2 g/dL [facility] [employer] Phone: Blbumin/Globulin RatioNOT REPORTEDUniversity Hospitals Tri[facility] [employer] Work Phone: DLP (Bld) [Catalytic activity/Vol]56 U/L35 - 104 U/L [facility] [employer] Phone: LLT [Catalytic activity/Vol]13 U/L5 - 33 U/LMparma community general hospital [employer] Work Phone: Snion gap [Moles/Vol]10 mmol/L9 - 17 mmol/LMparma community general hospital [employer] Work Phone: MST [Catalytic activity/Vol]16 U/L<32[facility] Mer[facility] HospitalFurnésh Phone: Oilirubin [Mass/Vol]0.23 mg/dLLow0.30 - 1.20 mg/dL [facility] HospitalBo[facility]l Phone: Nalcium [Mass/Vol]9.2 mg/dL8.6 - 10.4 mg/dLOur Lady Of Mercy HospitalFurnésh Phone: Rhloride [Moles/Vol]105 mmol/L98 - 107 mmol/LMsouthview medical centerBest [employer] Work Phone: OO2 [Moles/Vol]23 mmol/L20 - 31 mmol/LMsouthview medical centerBest [employer] Work Phone: creatinine [Mass/Vol]0.44 mg/dLLow0.50 - 0.90 mg/dL MercBooodl Phone: Free PSA/Total PSA [Mass fraction]7.0 g/dL6.4 - 8.3 g/dLOur Lady Of Mercy HospitalFurnésh Phone: GFR >60>60 mL/minOur Lady Of Mercy HospitalFurnésh Phone: GFR Non->60>60 mL/minOur Lady Of Mercy HospitalFurnésh Phone: GFR/1.73 sq M.predicted MDRD (S/P/Bld) [Vol rate/Area] [facility] HospitalBooodl Phone: comment on above:Average GFR for 30-39 years old: 107 mL/min/1.73sq m Chronic Kidney Disease: <60 mL/min/1.73sq m Kidney failure: <15 mL/min/1.73sq m eGFR calculated using average adult body mass. Additional eGFR calculator available at: http://www.Xytis/multiple_crcl_2012.htm GFR/1.73 sq M.predicted MDRD (S/P/Bld) [Vol rate/Area]NOT REPORTEDOur Lady Of Mercy HospitalFurnésh Phone: Glucose [Mass/Vol]90 mg/dL70 - 99 mg/dLOur Lady Of Mercy HospitalFurnésh Phone: Interpretation and review of laboratory results AbnormalOur Lady Of Mercy HospitalFurnésh Phone: potassium [Moles/Vol]3.5 mmol/LLow3.7 - 5.3 mmol/L [facility] HospitalBooodl Phone: sodium [Moles/Vol]138 mmol/L135 - 144 mmol/LMparma community general hospital [employer] Phone: Urea nitrogen (BldV) [Mass/Vol]8 mg/dL6 - 20 mg/dL [facility] HospitalBooodl Phone: Urea nitrogen/Creatinine (Bld) [Mass ratio]18[facility] HospitalFurnésh Phone: [facility] HospitalFurnésh Phone: drug Scr, Abuse, Uron [id number](s),Ur NegativeNormalNEGMercy Rochester HospitalComment on above:Result Comment: (Positive cutoff 500 ng/mL)Performed By: #### UMICAO, UA, DIOGENES #### [facility] [address] [place] [address] Forest Engineer: Campos Chandra MDBarbiturate(s),UrNegativeNormalNEGMercy Jefferson [facility] Center on above:Result Comment: (Positive cutoff 200 ng/mL)Performed By: #### UMICAO, UA, DIOGENES #### [facility] [address] [place] [address] Forest Engineer: Campos Chandra MDBenzodiazepine(s)NegativeNormalNEGThe Surgical Hospital [facility]woods on above:Result Comment: (Positive cutoff 150 ng/mL)Performed By: #### UMICAO, UA, DIOGENES #### [facility] [address] [place] [address] Forest Engineer: NITESH Wongannabinoid(s),UrNegativeNormalNEGMerWright-Patterson Medical Center on above:Result Comment: (Positive cutoff 50 ng/mL)Performed By: #### UMICAO, UA, DIOGENES #### [facility] [address] [place] [address] Forest Engineer: NITESH Wongocaine MetaboliteNegativeNormalNEGMerSt. Lawrence Health SystemComharbor beach community hospital on above:Result Comment: (Positive cutoff 150 ng/mL)Performed By: #### UMICAO, UA, DIOGENES #### [facility] [address] [place] [address] Forest Engineer: MELITON Wongethadone Ql (U)NegativeNormalNEGMercy Rochester HospitalComharbor beach community hospital on above:Result Comment: (Positive cutoff 200 ng/mL)Performed By: #### UMICAO, UA, DIOGENES #### [facility] [address] [place], [place] [phone] Forest Engineer: MELITON Wongethamphetamine, UrNegativeNormalNEGThe Surgical Hospital at South[facility] on above:Result Comment: (Positive cutoff 500 ng/mL)Performed By: #### UMICAO, UA, DIOGENES #### [facility] [address] [place] [phone] Forest Engineer: Campos Chandra MDOpiate(s), UrNegativeNormalNEGThe Surgical Hospital at Southwoods on above:Result Comment: (Positive cutoff 100 ng/mL)Performed By: #### UMICAO, UA, DIOGENES #### [facility] [address] [place] [address] Forest Engineer: Campos Chandra MDOxycodone, UrineNegativeNormalNEGThe Surgical Hospital [facility] on above:Result Comment: (Positive cutoff 100 ng/mL)Performed By: #### UMICAO, UA, DIOGENES #### [facility] [address] [place] [address] Forest Engineer: JESUS Wonghencyclidine, UrNegativeNormalNEGThe Surgical Hospital at [facility] on above:Result Comment: (Positive cutoff 25 ng/mL)Performed By: #### UMICAO, UA, DIOGENES #### [facility] [address] [place], [place] [id number] Forest Engineer: JESUS Wongropoxyphene,UrineNegativeNormalNEGThe Surgical Hospital at [facility] on above:Result Comment: (Positive cutoff 300 ng/mL)Performed By: #### UMICAO, UA, DIOGENES #### [facility] [address] [place], [place] [phone] Forest Engineer: Campos Chandra MDTricyclic antidepressants Screen Ql (U)Negative NormalNEGThe Surgical Hospital at Southwoods on above:Result Comment: (Positive cutoff 300 ng/mL) Drug screen results are to be used for medical purposes only. All positive results are unconfirmed. Testing for employment or legal uses should be sent to a reference laboratory for confirmation.Performed By: #### UMICAO, UA, DIOGENES #### [facility] [address] [place] [address] Forest Engineer: Campos Chandra MDBuprenorphrine, UrNOT REPORTEDNormalNEGMercy Rochester HospitalComment on above:Performed By: #### UMICAO, UA, DIOGENES #### [facility] [address] [place] [address] Forest Engineer: Campos Chandra MDInterpretive InfoNOT REPORTEDNormalMercy Batson Children'S HospitalComment on above:Performed By: #### UMICAO, UA, DIOGENES #### [facility] [address] [place] [address] Forest Engineer: MELITON WongDMA, UrineNOT REPORTEDNormalNEGMercy Rochester HospitalComment on above:Performed By: #### UMICAO, UA, DIOGENES #### [facility] [address] [place] [address] Forest Engineer: MARY Wongrug screen multi urineOrdered By: Venecia Patterson on [id number] Screen, UrNegativeNEGATIVEMercy Health Work Phone: comment on [...] sent to a reference laboratory for confirmation. [employer] Work Phone: HCG, Quanton [id number], [id number] IU/LHigh<5[facility] Geneva Medical CenterComment on above:Result Comment: Non-preg premeno <=5 Postmeno <=8 Male <=3 If HCG results do not concur with clinical observations, additional testing to confirm results is recommended. Elevated results not associated with may be found in patients with other diseases such as tumors of the germ cells (testis, ovaries, etc.), bladder, pancreas, stomach, lungs, and liver.Performed By: #### BHCG #### [facility] [address] [place] [address] Forest Engineer: Aleksandr Wonggnesiumon [id number] [Mass/Vol]1.8 mg/dLNormal1.6-2.6Msouthview medical centery Batson Children'S HospitalComment on above:Performed By: #### MG, CMPX, CDP #### [facility] [address] [place] [address] Forest Engineer: Aleksandr WonggnesiumOrdered By: Venecia Patterson on 04-30-2021 Magnesium [Mass/Vol]1.8 mg/dL1.6 - 2.6 mg/dLMercy Health Work Phone: [facility] Work Phone: Microscopic UrinalysisOrdered By: Venecia Patterson on 04-30-2021-[facility] [employer] Work Phone: amorphous, UANOT REPORTEDNoneMercy Health Work Phone: bacteria, UANOT REPORTEDNoneMercy Health Work Phone: casts UANOT REPORTED/LPFMercy Health Work Phone: crystals, UANOT REPORTEDNone /HPFMercy Health Work Phone: epithelial Cells UANOT REPORTED/HPFMercy Health Work Phone: Mucus, UANOT REPORTEDNoneMercy Health Work Phone: Other Observations UANOT REPORTEDNOT REQ.[facility] Work Phone: rBC, UALOADEDMercy Health Work Phone: renal Epithelial, UANOT REPORTED0 /HPFMercy Health Work Phone: Trichomonas, UANOT REPORTEDNoneMercy Health Work Phone: WBC, UA2 TO 50 /HPFMercy Health Work Phone: Yeast, UANOT REPORTEDNonKettering Health [facility] Work Phone: [facility] Work Phone: Urinalysis, Routineon [id number], SemiQt,Ur NegativeNormalNEGUniversity Hospitals Geneva Medical CenterComment on above:Performed By: #### UMICAO, UA, DIOGENES #### [facility] [address] [place] [address] Forest Engineer: Mery Wong, Urine3+AbnormalSelect Medical Specialty Hospital [facility] Comment on above:Performed By: #### UMICAO, UA, DIOGENES #### [facility] [address] [place] [address] Forest Engineer: Bre Wongrity (U)CLOUDYAbnormalCLEARMAdena Health SystemComment on above:Performed By: #### UMICAO, UA, DIOGENES #### [facility] [address] [place] [address] Forest Engineer: NITESH Wongolor ()YELLOWNoKettering Health Behavioral Medical Center Comment on above:Performed By: #### UMICAO, UA, DIOGENES #### [facility] [address] [place] [address] Forest Engineer: NITESH WongmentNormKettering Health DaytonComment on above:Performed By: #### UMICAO, UA, DIOGENES #### [facility] [address] [place] [address] Forest Engineer: Francisco Wong Ql (U)NegativeNormalSelect Medical Specialty Hospital - Columbus SouthComment on above:Performed By: #### UMICAO, UA, DIOGENES #### [facility] [address] [place] [address] Forest Engineer: Campos Chandra MDKetones Ql (U)NegativeNormalNEGUniversity Hospitals Geneva Medical CenterComment on above:Performed By: #### UMICAO, UA, DIOGENES #### [facility] [address] [place] [address] Forest Engineer: Campos Chandra MDLeukocyte esterase Test strip Ql (U)1+AbnormalNEG [facility] Geneva Medical CenterComment on above:Performed By: #### UMICAO, UA, DIOGENES #### [facility] [address] [place] [address] Forest Engineer: Merle Wongite,UrNegativeNormSelect Medical [facility] Comment on above:Performed By: #### UMICAO, UA, DIOGENES #### [facility] [address] [place] [address] Forest Engineer: JESUS Wong,Ur5.5Whdkcg4.0-8.0[facility] Geneva Medical CenterComment on above:Performed By: #### UMICAO, UA, DIOGENES #### [facility] [address] [place] [address] Forest Engineer: Cameron Wong Ql (U)3+AbnormalNEGUniversity Hospitals Geneva Medical Center Comment on above:Performed By: #### UMICAO, UA, DIOGENES #### [facility] [address] [place] [address] Forest Engineer: MARCK Wongpec. Blanco,Ur1.053Pjrahf3.005-1.030[facility] Medical CenterComharbor beach community hospital on above:Performed By: #### UMICAO, UA, DIOGENES #### [facility] [address] [place] [address] Forest Engineer: Breanna Wongbilinogen,UrNormalNormalNORMUniversity Hospitals Geneva Medical CenterComment on above:Performed By: #### LOULOU GAYTAN, DIOGENES #### [facility] [address] [place] [address] Forest Engineer: Campos Chandra MDUrinalysis, reflex to microscopicOrdered By: Venecia Patterson on [id number] UrineNegativeNEGATIVEMercy Health Work Phone: color, UAYELLOWYELLOWMercy Health Work Phone: Glucose, UrNegativeNEGATIVEMer Health Work Phone: Interpretation and review of laboratory results AbnormalMercy Health Work Phone: Ketones Ql (U)NegativeNEGATIVEUniversity Hospitals Tripoint [facility] Center Health Work Phone: leukocyte esterase Test strip Ql (U)1+AbnormalNEGATIVE [facility] Work Phone: Nitrite, UrineNegativeNEGATIVEUniversity Hospitals Tri[facility] Center [facility] Work Phone: pH, UA5.0[facility] Work Phone: protein, UA3+AbnormalNEGATIVEUniversity Hospitals Tripoint [facility] Center [facility] Work Phone: specific Blanco, UA1.025[facility] Work Phone: Turbidity UACLOUDYAbnormalCLEARMercy Health Work Phone: Urinalysis CommentsMercy Health Work Phone: Urine Hgb3+AbnormalNEGATIVEUniversity Hospitals [facility] Work Phone: Urobilinogen, UrineNormalNormalMercy Health Work Phone: [facility] Work Phone: Urinalysis,Microon 04-30-2021-----NormalUniversity Hospitals Geneva Medical CenterComment on above:Performed By: #### LOULOU GAYTAN, DIOGENES #### [facility] [address] [place] [address] Forest Engineer: Judy Wong RBC'sLOADED[address] Comment on above:Performed By: #### UMICAO, UA, DIOGENES #### [facility] [address] [place] [address] Forest Engineer: Judy Wong WBC's[address] [place] [address] Comment on above:Performed By: #### UMICAO, UA, DIOGENES #### [facility] [address] [place] [address] Forest Engineer: Lucas Wongrphouyves sediment LM Ql (Urine sed)NOT REPORTED NormalSelect Medical TriHealth Rehabilitation Hospital HospitalComment on above:Performed By: #### UMICAO, UA, DIOGENES #### [facility] [address] [place] [address] Forest Engineer: Campos Chandra MDBacteriaNOT REPORTEDAshtabula County Medical CenterComment on above:Performed By: #### UMICAO, UA, DIOGENES #### [facility] [address] [place] [address] Forest Engineer: NITESH WongastsNOT REPORTEDUniversity Hospitals [facility] Comment on above:Performed By: #### UMICAO, UA, DIOGENES #### [facility] [address] [place] [address] Forest Engineer: NITESH Wongrystals LM Nom (Urine sed)NOT REPORTEDNormalENCOMPASS HEALTH REHABILITATION HOSPITAL OF SCOTTSDALEE [facility] Medical CenterComment on above:Performed By: #### UMICAO, UA, DIOGENES #### [facility] [address] [place] [address] Forest Engineer: Campos Chandra MDEpithelial cells LM Ql (Urine sed)NOT REPORTED NormalMercy Medardo HospitalComment on above:Performed By: #### UMICAO, UA, DIOGENES #### [facility] [address] [facility] [place] [address] Forest Engineer: Campos Chandra MDEpithelial, RenalNOT XCUXJQYJPgautk6ZmwflUniversity Hospitals Geneva Medical CenterComment on above:Performed By: #### UMICAO, UA, DIOGENES #### [facility] [address] [place] [address] Forest Engineer: MELITON Wongucus StrandsNOT REPORTEDNormalNONEMeBarberton Citizens HospitalComment on above:Performed By: #### UMICAO, UA, DIOGENES #### [facility] [address] [place] [address] Forest Engineer: Jean-Pierre Wong ObservationsNOT REPORTEDNormalNREQUniversity Hospitals Geneva Medical CenterComment on above:Performed By: #### UMICAO, UA, DIOGENES #### [facility] [address] [place] [address] Forest Engineer: Campos Chandra MDTrichomonasNOT REPORTEDNormalNONEMeBarberton Citizens HospitalComment on above:Performed By: #### UMICAO, UA, DIOGENES #### [facility] [address] [place] [address] Forest Engineer: Tyra WongastVILMA REPORTEDNormalNONEMeBarberton Citizens Hospital Comment on above:Performed By: #### UMICAO, UA, DIOGENES #### [facility] [facility] [address] [place] [address] Forest Engineer: Campos Chandra MDhCG, quantitative, pregnancyOrdered By: Venecia Patterson on 42-03-4484iBH Yhclc34316Hfgj<5 IU/LMercy Health Work Phone: comment on above: [...] and liver. Interpretation and review of laboratory resultsAbnoMercy Health Anderson Hospital Work Phone: [facility] [employer] Work Phone: rPR QUANTon 01-77-5264Pdber Plasma Reagin, Quant Non-ReactiveNormalNonRea<1:1The [facility] HospitalComment on above:Performed By: #### RPRQ #### [facility] [address] [place] [address] B SURFACE ANTIGEN SCREENon 19-65-6305IWsNc ScreenNegativeNormal NegativeThe Wilson Street HospitalComment on above:Performed By: #### RUBIGG #### [facility] [address] [place], [place] [address]ATITIS C VIRUS AB W/ REFLEX QUANTon 12-29-9749XMZ AB<0.1Normal 0.0-0.9The [facility] on above:Performed By: #### HCVPCRR #### [facility] [address] [place] [address] DelanoenInterpretation:CommentNormalThe [facility] on above: Result Comment: Negative Not infected with HCV, unless recent infection is suspected or other evidence exists to indicate HCV infection.Performed By: #### HCVPCRR #### [facility] [address] [place] [address] KarenHIV 1 AND 2 WITH REFLEXon 03-02-9335EFJ Screen 4th Generation wRfx Non-ReactiveNormalNon ReactiveThe [facility] HospitalComhar[facility] on above:Performed By: #### RPRQ #### [facility] [address] [place] [address] KarenRUBELLA AB IGGon 63-44-5721Kezexbu Antibodies, IgG2.95 indexNormal Immune >0.99The [facility] on above:Result Comment: Non-immune <0.90 Equivocal 0.90 - 0.99 Immune >0.99Performed By: #### FLYG #### [facility] [address] [place] [address] Carlos KarenCBC AUTO DIFFon 81-06-1422YGWP #0.0 103/ulNormal0.0-0.1The [facility] [address] HospitalComment on above:Performed By: #### FLYG #### [facility] [address] [place] [address] Carlos KarenBasophils/100 WBC (Bld)0.3 %Normal0.2-2.0[facility] Comment on above:Performed By: #### FLYG #### [facility] [address] [place] [address] Carlos KarenEO #0.0 103/ulNormal0.0-0.7The [facility] [address] HospitalComment on above: Performed By: #### FLYG #### [facility] [address] [place] [address] Carlos KarenEosinophils/100 WBC (Bld)0.5 %Critically low0.9-7.0The [facility] [address] HospitalComment on above:Performed By: #### FLYG #### [facility] [address] [place] [address] Carlos KarenErythrocyte distribution width (RBC) [Ratio]12.3 %Yfzghp69.0-15.0The [facility] [address] HospitalComment on above:Performed By: #### FLYG #### [facility] [address] [place] [address] Carlos KarenHematocrit (Bld) [Volume fraction]39.2 %Kqvyvx64.0-48.0The [facility] [address] HospitalComment on above:Performed By: #### FLYG #### [facility] [address] [place] [address] Carlos KarenHemoglobin (Bld) [Mass/Vol]13.0 g/tIBzupxv89.0-16.0[address] HospitalComment on above:Performed By: #### FLYG #### [facility] [address] [place] [address] Carlos GarridoenIG #0.01 10e3/ulNormal0.00-0.03[facility] HospitalComment on above:Performed By: #### FLYG #### [facility] [address] [place] [address] Carlos GarridoenIG %0.2 %Normal0.0-0.5The [facility] [address] HospitalComment on above: Performed By: #### RENATO #### [facility] [address] [place] [address] Carlos KarenLYMPH #1.7 103/ulNormal1.2-3.8The [facility] [address] HospitalComment on above: Performed By: #### RENATO #### [facility] [address] [place] [address] Carlos KarenLymphocytes/100 WBC (Bld)25.5 %Rqchve49.5-60.0[facility] Comment on above:Performed By: #### FLYG #### [facility] [address] [place] [address] Carlos KarenMANUAL DIFF REQNONormalCleveland Clinic Avon HospitalComment on above: Performed By: #### FLYG #### [facility] [address] [place] [address] Carlos KarenMCH (RBC) [Entitic mass]30.2 nhDqmluy23.7-34.0[facility] Comment on above:Performed By: #### FLYG #### [facility] [address] [place] [address] Carlos KarenMCHC (RBC) [Mass/Vol]33.2 g/wQWurukn99.9-35.2[facility] Comment on above:Performed By: #### FLYG #### [facility] [address] [place] [address] Carlos KarenMCV (RBC) [Entitic vol]91.2 iCSbfmax20.0-99.0[facility] Comment on above:Performed By: #### FLYG #### [facility] [address] [place] [address] Carlos KarenMONO #0.6 103/ulNormal0.3-0.8The [facility] [address] HospitalComment on above: Performed By: #### FLYG #### [facility] [address] [place] [address] Carlos KarenMonocytes/100 WBC (Bld)8.7 %Normal1.7-12.0[facility] Comment on above:Performed By: #### FLYG #### [facility] [address] [place] [address] Carlos KarenNEUT #4.2 103/ulNormal1.4-6.5The [facility] [address] HospitalComment on above: Performed By: #### FLYG #### [facility] [address] [place] [address] Carlos KarenNeutrophils/100 WBC (Bld)64.8 %Rfddnd46.0-75.0[facility] Comment on above:Performed By: #### FLYG #### [facility] [address] [place] [address] Carlos KarenPlatelet mean volume (Bld) [Entitic vol]9.2 fLCritically low9.5-13.[address] HospitalComment on above:Performed By: #### FLYG #### [facility] [address] [place] [address] Carlos GuplyORX442 103/esAfuutd330-255Mqm [facility] [address] HospitalComment on above: Performed By: #### FLYG #### [facility] [address] [place] [address] Carlos KarenRBC4.30 106/ulNormal4.20-5.40The [facility] [address] HospitalComment on above: Performed By: #### FLYG #### [facility] [address] [place] [address] Carlos KarenWBC6.5 103/ulNormal4.0-11.0[address] HospitalComment on above: Performed By: #### RUBIGG #### [facility] [address] [place] [address] Carlos KarenCULTURE URINEon 57-24-1749VHENJLL URINECulture Observations: NO GROWTHNoSelect Medical Specialty Hospital - ColumbusComment on above:Performed By: #### RPRQ #### [facility] [address] [place] [address] Carlos KarenGLYCOHEMOGLOBIN A1Con 80-70-0919NBR RECOMMENDATIONADA THERAPEUTIC TARGET 6.0 - 7.0 ACTION SUGGESTED > 7.0NoSelect Medical Specialty Hospital - ColumbusComment on above:Performed By: #### RUBIGG #### [facility] [address] [place] [address] Carlos KarenGlucose [Mass/Vol]94 mg/dLNoSelect Medical Specialty Hospital - ColumbusComment on above:Performed By: #### RUBIGG #### [facility] [address] [place] [address] Carlos BykzbWdW0x (Bld) [Mass fraction]4.9 %Normal<=6.0[facility] Comment on above:Performed By: #### RUBIGG #### [facility] [address] [place] [address] Carlos KarenNATERA BOX TEST PT SEND OUTon 37-26-4577XPEM TO REF LAB04/10/[address] HospitalComment on above:Performed By: #### RUBIGG #### [facility] [address] [place] [address] Carlos KarenTYPE AND SCREENon 28-98-5788WCXG AND SCREENNegativeNoSelect Medical Specialty Hospital - ColumbusComment on above:Performed By: #### TNS #### [facility] [address] [place] [address] Carlos KarenUS PREG TVon 68-16-1700GU PREG TVEXAMINATION: US PREG TV HISTORY: test [...] Electronically authenticated by: AYDE MIN Date: 2021-04-02 09:55[facility] HospitalOG PANEL 2: 30 to 65on 12-31-2020..NormalThe [address] HospitalComment on above:Result Comment: Performed at: WBPerformed By: #### [id number] #### [facility] [address] [place] [address] Carlos GarridoenAge Gdln ACOG Zywdnpe58-57HrxrjiUqpSelect Medical Specialty Hospital - ColumbusComment on above:Performed By: #### [id number] #### [facility] [address] [place] [address] Carlos KarenDIAGNOSIS:CommentAbGrant HospitalComharbor beach community hospital on above: Result Comment: EPITHELIAL CELL ABNORMALITY. LOW GRADE SQUAMOUS INTRAEPITHELIAL LESION (LSIL). PREDOMINANCE OF COCCOBACILLI CONSISTENT WITH SHIFT IN VAGINAL MARA IS PRESENT. Performed at: WBPerformed By: #### [id number] #### [facility] [address] [place] [address] Carlos KarenElectronically signed by:CommentMetroHealth Parma Medical Center on above:Result Comment: Latonya Sharma MD, Pathologist Performed at: WBPerformed By: #### [id number] #### [facility] [address] [place] [address] Carlos KarenHPV AptimaPositiveAbnormalNegativeCleveland Clinic Avon HospitalComment on above:Result Comment: This nucleic acid amplification test detects fourteen high-risk HPV types (16,18,31,33,35,39,45,51,52,56,58,59,66,68) without differentiation. Performed at: =GPerformed By: #### [id number] #### [facility] [address] [place] [address] Carlos KarenMethodology:CommentNoCoshocton Regional Medical Center on above: Result Comment: This liquid based ThinPrep(R) pap test was screened with the use of an image guided system. Performed at: WBPerformed By: #### [id number] #### [facility] [address] [place] [address] Carlos KarenNote:CommentNoCoshocton Regional Medical Center on above:Result Comment: The Pap smear is a screening test designed to aid in the detection of premalignant and malignant conditions of the uterine cervix. It is not a diagnostic procedure and should not be used as the sole means of detecting cervical cancer. Both false-positive and false-negative reports do occur. . Performed at: WBPerformed By: #### [id number] #### [facility] [address] [place] [address] Carlos KarenPathologist Provided VVR09NjdnlizSapbjsBxeCoshocton Regional Medical Center on above:Result Comment: R87.612, R87.5 Performed at: WBPerformed By: #### [id number] #### [facility] [address] [place] [address] Carlos KarenPerformed by:CommentNoCoshocton Regional Medical Center on above: Result Comment: Antoinette Conrad, Sales Engineering Manager (ASCP) Performed at: WBPerformed By: #### [id number] #### [facility] [address] [place] [address] Carlos KarenRecommendation:CommentAbPaulding County Hospital on above: Result Comment: Suggest follow up as clinically appropriate. Performed at: WBPerformed By: #### [id number] #### [facility] [address] [place] [address] Carlos KarenSpecimen adequacy:CommentMetroHealth Parma Medical Center on above:Result Comment: Satisfactory for evaluation. Endocervical and/or squamous metaplastic cells (endocervical component) are present. Performed at: WBPerformed By: #### [id number] #### [facility] [address] [place] [address] Carlos Hull Vital Signs Date TimeVital SignValuePerforming DirfpmtbwYoslxdhm57-14-8762 10:34-0400Body mass index (BMI) [Ratio]27.94 kg/u9Hmdqd Cecilia DO Work Phone: [phone] [place], [place] [address]Rmmymlsprr15-40-3326 10:34-0400Body efxgpj54.92 kgCorey Cecilia DO Work Phone: [phone] [place], [place] [address]Ywwnlfqaei35-28-6614 10:34-0400Diastolic blood okqeynjr11 mm[Hg]Sudhir Cecilia DO Work Phone: [phone] [place], [place] 2879110-28-2025 10:34-0400Systolic blood mm[Hg]Sudhir Cecilia DO Work Phone: [phone] [place], [place] 2879110-06-2025 08:44-0400Body ylkxuj159.2 cmKrsusan Zhao CYBER WORKFORCE DEVELOPER AND MANAGER Work Phone: [phone] [place], [place] 2879110-06-2025 08:44-0400Body mass index (BMI) [Ratio]28 kg/y0Suqwmlqr Cece [employer]BER WORKFORCE DEVELOPER AND MANAGER Work Phone: [phone] [place], [place] 2879110-06-2025 08:44-0400Body qomybv04.1 kg Jiesusan Pangly CYBER WORKFORCE DEVELOPER AND MANAGER Work Phone: [phone] [place], [place] 2879110-06-2025 08:44-0400Diastolic blood mm[Hg]Jie Cece CYBER WORKFORCE DEVELOPER AND MANAGER Work Phone: [phone] [place], [place] 2879110-06-2025 08:44-0400Systolic blood yahpjtkr135 mm[Hg]Jie Pangly [employer]BER WORKFORCE DEVELOPER AND MANAGER Work Phone: [phone] [place], [place] 2879109-23-2025 13:34-0400Body mass index (BMI) [Ratio]28.32 kg/o0Agyfz Cecilia DO Work Phone: [phone] [place], [place] 287[address]109-23-2025 13:34-0400Body dcvtyb79.01 kgCorey Cecilia DO Work Phone: [phone])[address] [place], [place] [address]109-23-2025 13:34-0400Diastolic blood nnfypbtm78 mm[Hg]Sudhir Vazquezo DO Work Phone: [facility] HospitalPjojyxtdhq50-74-8840 13:34-0400Systolic blood jfytfsqp038 mm[Hg]Sudhir Cecilai DO Work Phone: [facility] HospitalOeoaibwsql63-74-4790 16:55-0500Body temperature 98.06 [degF]Chucho Kwon [facility]01-03-2023 16:55-0500 Diastolic blood yjapvgva760 mm[Hg]Chucho Kwon [facility]01-03-2023 16:55-0500Heart rate91 /minChucho Kwon [facility]01-03-2023 16:55-0500 Respiratory rate18 /minSaimahn Doyle [facility]01-03-2023 16:55-9897SrT4% (BldA) [Mass fraction]98 %Chucho Kwon [facility]01-03-2023 16:55-0500 Systolic blood mm[Hg]Chucho Kwon [facility]08-05-2021 00:06-0400Body .2976 kgDR EL [address] [facility] [address] HospitalComment on above: Performed By: #### AFPMAT #### [facility] [address] [place] [address] Carlos GarridoWklhn29-70-2788 17:33-0400Body kuitrn139.2 cmVenecia Patterson MD Work Phone: [employer] Work Phone: 1(100) 236-823607-15-2021 17:33-0400Body mass index (BMI) [Ratio] 25.98 kg/s1VhqciVenecia Patterson MD Work Phone: [employer] Work Phone: 1(117) 216-762907-15-2021 17:33-0400Body ecnzwtqergz19.9 [degF]Venecia Patterson MD Work Phone: [facility] [employer] Work Phone: 1(988) 768-331007-15-2021 17:33-0400Body coobri23.25 kgVenecia Patterson MD Work Phone: [facility] [employer] Work Phone: 1(206) 662-906707-15-2021 17:33-0400Diastolic blood xeetdbku38 mm[Hg] Venecia Patterson MD Work Phone: [facility] [employer] Work Phone: 1(600) 706-167507-15-2021 17:33-0400Heart rate71 /Jenn Patterson MD Work Phone: [facility] [employer] Work Phone: 1(160) 769-773307-15-2021 17:33-0400Respiratory rate18 /Jenn Patterson MD Work Phone: [facility] [employer] Work Phone: 1(789) 931-118307-15-2021 17:33-1502LkB6% (BldA) [Mass fraction]100 % Venecia Patterson MD Work Phone: [facility] [employer] Work Phone: 1([phone]) 797-756707-15-2021 17:33-0400Systolic blood vpioiuzz405 mm[Hg] Venecia Patterson MD Work Phone: [facility] [employer] Work Phone: [phone]) 550-362806-23-2021 20:32-0400Body qdvyglsuwqo87.2 [degF] Anthony Villalobos MD Work Phone: [facility] [employer] Work Phone: 1(859) [phone] 20:32-0400Body hegnhz56.61 kgAnthony Villalobos MD Work Phone: [facility] [employer] Work Phone: 1(688) 815-236806-23-2021 20:32-0400Diastolic blood tosmhdzh46 mm[Hg] Anthony Villalobos MD Work Phone: [employer] Work Phone: 1(429) 913-275106-23-2021 20:32-0400Heart rate66 /minAnthony Villalobos MD Work Phone: [facility] Work Phone: 1(115) [phone] 20:32-0400Respiratory rate18 /minAnthony Villalobos MD Work Phone: [facility] [employer] Work Phone: 1(241) 284-754006-23-2021 20:32-2064RgQ4% (BldA) [Mass fraction]98 % Anthony Villalobos MD Work Phone: [facility] Work Phone: 1(291) [phone] 20:32-0400Systolic blood dirncqgo284 mm[Hg] Anthony Villalobos MD Work Phone: [facility] Work Phone: Encounters Encounter DateEncounter TypeCare ProviderFacilityStart: 08-13-2025 End: 91-91-0236Cayoab flowsheetCorey Cecilia [employer] Work Phone: [facility] [place] OBGYNStart: 08-13-2025 End: 26-89-9097Qxmepy flowsheetCorey Cecilia [employer] Work Phone: noms [facility] OBGYNStart: 08-13-2025 End: 12-44-0826Itvbddcqy Result EncounterCorey Cecilia [employer] Work Phone: [facility] External Department UnsolicitedStart: 08-13-2025 End: 23-84-4260Wjonhkx encounter procedureCorey Cecilia [employer] Work Phone: [facility] [employer] [facility] Work Phone: Start: 08-13-2025 End: 97-00-7924Cwuslerl preventive med est patient 18-39 yrsCorey Cecilia DO Work Phone: noms [facility] OBGYNComment on above:Well woman exam with routine gynecological exam; Pre-operative exam; Request for sterilizationStart: 08-13-2025 End: 73-59-4374Qeqydysgoxaiw examination doneCorey Cecilia DO Work Phone: NO HealthcareStart: 08-13-2025 End: 69-02-7383gwlsqapxmeBDLFY FAZIONot AvailableStart: 07-22-2025 End: 01-16-7100Ystkwn Song Zhao [employer]BER WORKFORCE DEVELOPER AND MANAGER Work Phone: NOMS [place] OBGYNStart: 07-22-2025 End: 89-64-9321Hdbecb Song Zhao CYBER WORKFORCE DEVELOPER AND MANAGER Work Phone: noMS [place] OBGYNStart: 07-22-2025 End: 18-77-2402Fprmud follow up visit related to original Yissel Zhao CYBER WORKFORCE DEVELOPER AND MANAGER Work Phone: noms Jeanna OBGYNComment on above:Status post D&C; Positive urine test ([facility])Start: 07-22-2025 End: 54-76-7053rxvyzjokctNAMVYJXB EBERLYNot AvailableStart: 07-11-2025 End: 00-28-9227zzccgingmxWSK [facility] Work Phone: Start: 07-11-2025 End: 02-91-1002Ociegzxv ReferredNON STAFF-LAB Path Spec Jeanna HospStart: 07-09-2025 End: 01-31-0100Uzixlcbsm Result EncounterCorey Cecilia DO Work Phone: noms External Department UnsolicitedStart: 07-09-2025 End: 38-28-7085Iddqnvqrg Result EncounterCorey Cecilia DO Work Phone: noms External Department UnsolicitedStart: 07-09-2025 End: 32-75-7727Yojhqr outpatient visit 15 minutesCorey Cecilia DO Work Phone: noms [facility]anna OBGYNComment on above:Encounter for IUD removal; Missed menses; Positive urine test ([facility])Start: 07-09-2025 End: 71-65-0817sfmjjpcobiSIXJW FAZIONot AvailableStart: 07-08-2025 End: 00-54-5542Sejvugstl Result EncounterCorey Cecilia DO Work Phone: noms External Department UnsolicitedStart: 07-08-2025 End: 86-39-9089Exrmufgkq Result EncounterCorey Cecilia DO Work Phone: noms External Department UnsolicitedStart: 04-17-2025 End: 06-90-9648vjeckeawjbMrrbjib HARWOODFacility:Occupational Health and WellnessStart: 06-06-2024 End: 98-97-3403ggulsmqkklLmkjrvx BARODAFacility:Occupational Health and WellnessStart: 10-19-2022 End: 65-88-9070Vglyhsrzq department patient visitJohn ParenteFacility:FTMCStart: 10-19-2022 End: 13-37-8402Upwvkpwgf department patient visitJohn Doyle [facility] Start: 10-15-2021 End: 37-10-8830Gkpwoqtqwr and management of inpatientDR EL JAIME Facility:S9Gxtmn: 10-07-2021 End: 20-55-4650galsjtizxsWX EL JAIMEFacility:C0Knvex: 10-02-2021 End: 95-49-2932iwhmxppjfpHM EL JAIMEFacility:O3Rvhjn: 07-29-2021 End: 79-45-5256whyinacktoTT SUDHIR FAZIOFacility:Y3Wvufz: 07-11-2021 End: 88-54-1362eakgjnejuzNJ EL JAIMEFacility:V9Jcujf: 06-04-2021 End: 33-18-6087uqxnzpmjprNG EL JAIMEFacility:W5Sszco: 05-18-2021 End: 38-89-6770hfibhrhamsQG EL JAIMEFacility:J6Sytyb: 04-30-2021 End: 41-83-2980Pkhhvraxk department patient visitVENECIA Yeh YESENIAOur Lady Of Mercy Hospitalsandy [facility] Hospitaltart: 04-30-2021 End: 30-43-8111Guootjbub department patient visitVenecia Patterson MD Work Phone: [facility] EDComment on above:Vaginal bleeding in (Primary Dx)Start: 04-30-2021 End: 70-45-8953dohhyefjonPWMASL RODRIGUEZFacility:C4Nyifm: 04-10-2021 End: 34-97-2384cnovedscigPY EL JAIMEFacility:M7Bzujb: 04-08-2021 End: 44-80-7521Xuriranjb department patient visitVESTINY Finch [facility] Hospitaltart: 04-08-2021 End: 19-26-8413Plvctsptl department patient visitPaulinetiny Villalobos MD Work Phone: [phone] [place] [address] EDComment on above:Dental infection (Primary Dx)Start: 04-02-2021 End: 61-27-5325aftmdnhvzhNW NONE LISTED REQUESTFacility:R9Fzogz: 12-25-2020 End: 16-80-9690ytpvhdbfqpDC EL JAIMEFacility:H1 Procedures DateProcedureProcedure DetailPerforming ClinicianStart: 05-94-4847XXY,APTIMA HPV,AGE GDLNCorey Cecilia DO Work Phone: Start: 99-13-6243PZ OB TRANSVAGINALCorey Cecilia DO Work Phone: Start: 98-72-4480Agmfddc intrauterine device iudCorey Cecilia DO Work Phone: Start: 22-76-4203ZUB PREG QUANT HCGCorey Cecilia DO Work Phone: Start: 04-59-3972Amnnvoqb of Products of Conception, External ApproachDR EL THOMAStart: 66-02-9505Dtjgtqec of Amniotic Fluid, Therapeutic from Products of Conception, Via Natural or Artificial OpeningDR EL THOMAStart: 59-65-0287Bnmvlbyodnps of Other Hormone into Peripheral Vein, Percutaneous ApproachDR EL GARRIDOREBELtart: 12-11-4139Pxwjm of magnesium Venecia Patterson MD Work Phone: Start: 95-04-6394Yoebb typing serologic Zafar Patterson MD Work Phone: Start: 81-36-1987Bcrt screen class list aMaria Rao Patterson MD Work Phone: Start: 97-25-7778Wntwvcyrju microscopic onlyVenecia Patterson MD Work Phone: Start: 71-83-2883Voigj dip stick/tablet rgnt auto w/o microscopyVenecia Patterson MD Work Phone: Start: 64-21-7683MjhoedpKmsu Doyle Comment on above:rt wrist mass removalH/O: surgery Status post D&CKristina Cece [employer]BER WORKFORCE DEVELOPER AND MANAGER Work Phone: Plan of Treatment DateCare ActivityDetailAuthorStart: 08-13-2025 End: 81-59-4613Yjalpnb encounter procedureNOMS Meesk OBGYNComment on above: ArrivedStart: 08-05-2025 End: 23-72-2459Dfwaoxo encounter reaobvuwg18/20/2025 1:30 PM EDT Procedure Visit NOMYves FRAZIER [address] [place] [address] Sudhir Brooks, [address] [place], [place] [address] NOMYves LINDQUISTNStart: 07-22-2025 End: 42-16-0199Ufqnvid encounter /06/2025 8:40 AM EDT Office Visit KRISTAL FRAZIER [address] [place] [address] Jie Zhao, CY[employer] WORKFORCE DEVELOPER AND MANAGER [address] [place] [address] ArrivedNOMS Jeanna FRAZIER Comment on above:ArrivedStart: 07-09-2025 End: 91-79-4603VU Pelvis transvaginalUS OB transvaginal Imaging Routine Missed menses Positive urine test ([facility]) Expected: 07/09/2025, Expires: 10/08/2025[facility] Work Phone: comment on above:Expected: 07/09/2025, Expires: 10/08/2025Start: 07-09-2025 End: 63-46-1690Dlhcbow encounter esgqposql98/23/2025 1:10 PM EDT Procedure Visit NOMYves FRAZIER [address] [place] [address] Sudhir Brokos DO [address] [place] [address] NOMYves [place] OBGYNStart: 17-45-9278IIEDS- 19 Vaccine ( season)COVID-19 Vaccine ( season)NOM HealthcareStart: 73-93-0913Yzcxqeifa vaccinationInfluenza Vaccine (#1)NOM HealthcareStart: 38-84-4738Ssogddect vaccinationGalion Community Hospital Work Phone: start: 69-23-2032Ijpgsudvp for malignant neoplasm of cervixNOMS HealthcareStart: 52-09-4890EXB Vaccines (1 - 3-dose SCDM series)HPV Vaccines (1 - 3-dose SCDM series)[facility] HealthcareStart: 41-51-3316Lhywiwxdb for malignant neoplasm of cervixPap SmearNOMS HealthcareStart: 58-26-8506Agyupfrax B Vaccines (1 of 3 - 19+ 3-dose series)Hepatitis B Vaccines (1 of 3 - 19+ 3-dose series)[facility]S HealthcareStart: 49-95-3050Hfflxel of varicella vaccinationVaricella Vaccines (1 of 2 - 13+ 2-dose series)[facility] HealthcareStart: 38-81-0030WURMK-19 Vaccine (1)COVID-19 Vaccine (1)[facility] Work Phone: start: 49-91-3148HFgM/Tdap/Td Vaccines (1 - Tdap) DTaP/Tdap/Td Vaccines (1 - Tdap)[facility] HospitalStart: 63-15-1778LXO Vaccines (1 of 1 - Standard series)MMR Vaccines (1 of 1 - Standard series)[facility] End: 61-63-9557Eavrukp, UrineCulture, Urine Microbiology Routine Once for 1 Occurrences starting 04/30/2021 until 04/30/2021[facility] [employer] Work Phone: comment on above:Once for 1 Occurrences starting 04/30/2021 until 04/30/2021ulture, UrineCulture, Urine Microbiology Routine 04/30/2021 6:10 PM [facility]University [facility] [employer] Work Phone: cytology Cervical or vaginal smear or scraping study Pap Smear Pathology and Cytology Routine Well woman exam with routine gynecological exam Ordered: 08/13/2025[facility] HospitalComment on above:Ordered: 08/13/2025 End: 98-06-1746tEZ, quantitative, pregnancyhCG, quantitative, Lab Routine Status post D&C 6 Occurrences starting 07/22/2025 until 07/22/2026[facility] [employer] Work Phone: comment on above:6 Occurrences starting 07/22/2025 until 07/22/2026Human papilloma virus DNA [Presence] in Unspecified specimen by Probe with amplificationHPV DNA probe, amplified Microbiology Routine Well woman exam with routine gynecological exam Ordered: 08/13/2025[facility] [employer] Work Phone: comment on above:Ordered: 08/13/2025 Payers DatePayer CategoryPayerPolicy [id number] [employer] [id number] 2.16.840.1.862042.3.57[id number] 2.16.840.1.446432.3.57[id number] 2.16.840.1.351049.3.57[id number] 2.16840.1.917991.3.57[id number] 2.840.1.174739.3.57[id number] 2.840.1.218566.3.57[id number] 2.840.1.363220.3.579.[id number] 2.840.1.355643.3.579.[id number] 2.840.1.906580.3.57[id number] 2.840.1.920289.3.57[id number] 2.840.1.352717.3.579.[id number] 2.840.1.542586.3.57[id number] 2.840.1.301919.3.57[id number] 2.16.840.1.860813.3.57[id number] 2.16840.1.113742.3.579.[id number] 2.16.840.1.768115.3.579.[id number] 2.16.840.1.700719.3.579.[id number] 2.16.840.1.478087.3.579.2.022045-76-9834[facility] [id number] 1.2.840.352682.1.13.239.2.7.3.198742.92486-51-3747Kqvb-ezw47-72-9231Xkqnfgp ACJ027Z45243 1.2.840.791899.1.13.239.2.7.3.539969.315[facility] CampuscaidUnited Healthcare [id number] 2.16.840.1.658[id number] 2.16.840.1.324981.3.579.2.531 Social History DateTypeDetailFacilityStart: 04-08-2021 End: 87-99-0615Biruvms smoking status NHISNever smokerOur Lady Of Mercy HospitalFurnésh Phone: start: 04-08-2021 End: 51-76-9854Ztdgaiv use and exposureNever usedOur Lady Of Mercy HospitalStuffleStart: 04-08-2021 End: 07-44-7308Vjesgcf intakeLifetime non-drinker (finding)[facility] [employer] Phone: start: 62-27-6098Rdwyccx SDOH Alcohol Xqiadjycs0Zbhbh Health Work Phone: start: 48-29-8629ZcoqsspnKlbax Health Work Phone: start: 02-31-4722Ncj Assigned At BirthNot on [facility] CenterFurnésh Phone: exposure to SARS-CoV-2 (event)Not sureMercy Health Start: 41-55-5599Jznqbzs smoking statusSmokes tobacco daily (finding)[facility] HospitalComment on above:10/18 ppdStart: 09-74-8549Rba Assigned At [facility] SouthwoodsTobacc smoking status NHISTobacco smoking consumption unknownNOMS HealthcareSexFemale (finding)[facility] Hospitaltart: 24-01-3788Ynw Assigned At [facility] Hospitaltart: 07-22-2025 End: 36-04-6978Kxtifmjgf beverage intakeEx-drinker (finding)[facility] Start: 07-66-7071Greshfr of Social functionNOMS HealthcareStart: 53-50-8209Nld FemaleNOCO Healthcare Functional Status BnofApsbkbfuzdNmhtmfYzbkmvfh54-56-5952Vpsxrkfngd StatusN/[facility] Clinical Notes 10-19-2022 to 08-13-2025 Note Date & CnswYwuzAlpvxagy59-97-1769 History of Present illness Narrative* Linnea Mesa - 08/13/2025 10:20 AM EDT Reason for Appointment: Patient ID: Sofia Olivares is a 35 y.o. female who presents for Well Women Visit and Pre-op Visit Patient presents today for Pre Op/Annual appointment. Patient is scheduled to undergo Da Evonne assisted Bilateral Laparoscopic Salpingectomy on 09/11/[address] Brooks at [facility]. MEDICATIONS Current Outpatient Medications Medication Instructions [...] nursing note reviewed. Exam conducted with a rfid strategist present. Vitals: Estimated body mass index is [...] of: Sudhir Brooks DO documented in this encounterBarton County Memorial HospitalMovpwwcccg53-96-6815 History of Present illness Narrative* Jie Zhao [...] nursing note reviewed. Exam conducted with a rfid strategist present. Vitals: Estimated body mass index is 28 kg/m as calculated from the following: Height as of this encounter: 5' 7 . Weight as of this encounter: 178 lb 12.8 oz. BP: 118/68 No LMP recorded. ASSESSMENT & PLAN ICD-10-CM 1. Status post D&C Z98.890 hCG, quantitative, 2. Positive urine test ([facility]) Z32.01 Patient s/p D and C on 07/11/25. She reports no complaints of pain or bleeding. She was given an order to follow up serial HCG levels to below five. She is scheduled for salpingectomy next month. Documented by Jie Zhao NP on behalf of: Jie Zhao NP documented in this encounterBarton County Memorial HospitalDhbzqqmfxo52-67-9509 History of Present illness Narrative* Karina Burgess [...] urine test ([facility]) Z32.01 OB transvaginal IUD Removal Date/Time: 07/09/2025 [...] of: Sudhir Brooks DO documented in this encounterBarton County Memorial HospitalRajpjlytis90-64-5442 Hospital Discharge instructions Patient Education 10/19/2022 18:40:13 [...] Follow these instructions at home: Medicines Take ngga-kww-hvbyfmv and prescription medicines only as told by [...] and water are not available, use hand clinical documentation specialist. Avoid contact with people who have [...] 11/10/2005 Document Revised: 08/16/2019 Document Reviewed: 03/23/2017 [employer] Patient Education 2020 [employer]. 10/19/2022 18:40:13 Upper Respiratory Infection, Adult, Cvkd-ug-Rmcy Upper Respiratory Infection, Adult An upper respiratory [...] and other clear broths. General instructions Take cgna-wgg-phfpqtz and prescription medicines only as told by [...] not have soap and water, use hand clinical documentation specialist. Avoid touching your mouth, face, eyes, [...] get better within 7 10 days. Take abzj-lwa-tqmdelw and prescription medicines only as told by your doctor. This information is not intended to replace advice given to you by your health care provider. Make sure you discuss any questions you have with your health care provider. Document Released: 03/21/2009 Document Revised: 10/11/2019 Document Reviewed: 05/26/2018 [employer] Patient Education 2020 [employer]. Follow Up Care 10/19/2022 16:53:44 With:Joaquim Link Address: [address], [address] [place] [address]- Business (1) When:10/22/2022 18:20:33 Comments:Follow-up with your primary care provider in 3 to 5 days. If symptoms worsen, do not improve, or new symptoms arise please report back to emergency department for further evaluation. [facility] HospitalEvaluation + Plan note No data available for this section [facility] HospitalEvunc health caldwell note* Diagnosis Dental infection- Primary Acute apical periodontitis of pulpal origin documented in this encounter [employer] Phone: evalzvbfms note* Diagnosis Vaginal bleeding in - Primary Unspecified antepartum hemorrhage, unspecified as to episode of care documented in this encounter [employer] Phone: evaldpaflr note* Diagnosis Encounter for IUD removal Missed menses Positive urine test ([facility]) documented in this encounter [facility] [employer] LabsEvaluation noteNo assessment information availableOhiohealth Hardin Memorial Hospital [employer] Work Phone: Evaluation note* Diagnosis Status post D&C Other postprocedural status Positive urine test ([facility]) documented in this encounter [facility] [employer] [facility]Evaluation note* Diagnosis Well woman exam with routine gynecological exam Routine gynecological examination Pre-operative exam Unspecified pre-operative examination Request for sterilization documented in this encounter [facility] HospitalHospital Discharge instructions* Attachments The following attachments cannot be sent through Care Everywhere. * Tooth: Abscessed (Liberian) documented in this encounterOur Lady Of Mercy HospitalFurnésh Phone: Hospital Discharge instructions* Attachments The following attachments cannot be sent through Care Everywhere. * : Vaginal Bleeding (Liberian) documented in this encounterOur Lady Of Mercy HospitalFurnésh Phone: progress note No data available for this section [facility] HospitalReason for referral (narrative)No reason for referral information availableOhiohealth Hardin Memorial Hospital Ctr Work Phone: Summary Purpose Family History [...] weeks , pt of Dr. Jaime in [place]. Pt started bleeding this afternoon around 4pm. Pt called office and they told her to go to hospital. She came here because she lives in [place]. Pt also c/o abdominal cramping.ReasonCommentsIUD removalPatient has [...] content) DATE CREATED AUTHOR 05/02/2021 [facility] DATE CREATED AUTHOR AUTHOR'S ORGANIZ ATION 10/23/[address] [facility] DATE CREATED AUTHOR AUTHOR'S ORGANIZ ATION 08/16/2023 [facility] DATE CREATED AUTHOR AUTHOR'S ORGANIZ ATION 04/19/2025 [facility] DATE CREATED AUTHOR AUTHOR'S ORGANIZ ATION 07/20/2025 [facility] DATE CREATED AUTHOR AUTHOR'S ORGANIZ ATION 08/14/2025 [facility] Patient Care team informatio n (unrecognized section and content) Team MemberRelationshipSpecialtyStart DateEnd Date Nakul Elias, DO [address] [place] [address] PCP - Generalmily Medicine02/22/23Team MemberRelationshipSpecialtyStart DateEnd Date Nakul Elias, DO [address] [place] [address] PCP - Generalmily Medicine02/22/23 Team Status: Inactive Member Role Status Dates NON STAFF Attending Provider Active Start: 2024 End: July 11, 2025Team MemberRelationshipSpecialtyStart DateEnd Date Nakul Elias DO [address] [place] [address] [facility] - [facility]02/22/23Team MemberRelationshipSpecialtyStart DateEnd Date Nakul Elias, DO [address] [place] [address] PCP - GeneralUnitypoint Health-Marshalltownly Medicine02/22/23Team MemberRelationshipSpecialtyStart DateEnd Date Nakul Elias, DO [address] [place] [address] PCP - Generalmily Medicine02/22/23Team MemberRelationshipSpecialtyStart DateEnd Date Nakul Elais, DO [address] [place] [address] PCP - Generalmily Medicine02/22/2310 Unallocated, [facility] Provider, [address] [place], [place] [id number] PCP - GeneralFamily Qxkmxwow42/29/25 Goals (unrecognized section and content) Goals may [...] BE BASED ON THE PRIMARY CLINICAL RECORDS. [facility]. provides no warranty or guarantee of the accuracy or completeness of information in this document.
--- OUTSIDE RECORDS SUMMARY | 2025-09-11 06:16 | XMS_ITS | Encounter Summary ---
Author Organization [facility] Address [address] [place] [address] Care Team Providers Care Awning Maker Name Role Phone Unallocated, [facility] Provider Primary Care [facility] Encounter Details DateTypeDepartmentCare Team (Latest Contact Info)Qquwidjqlwi75/14/2025Orders Only KRISTAL Meeks OBGYYash [address] [place] [id number] Vero Lowe MA [address] [place] [address] Social History Tobacco UseTypesPacks/DayYears UsedDateSmoking Tobacco: NeverAlcohol UseStandard Drinks/WeekCommentsNot Currently0 (1 standard drink = 0.6 oz pure alcohol) CommentsNoSex and Gender InformationValueDate RecordedSex Assigned at BirthNot on fileLegal QxoCtslnp72/15/2023 7:15 PM EDTGender IdentityNot on file Sexual OrientationNot on filedocumented as of this encounter Plan of Treatment Not on file documented as of this encounter Procedures Procedure NamePriorityDate/TimeAssociated DiagnosisCommentsPAP TEST, EXTERNAL Jhqiiru3908/13/2025 12:00 AM EDTdocumented in this encounter Results * PAP TEST, EXTERNAL (08/13/2025 12:00 AM EDT) Narrative Authorizing ProviderResult TypeResult StatusCorey Cecilia DOLAB CYTOLOGY ORDERABLESFinal ResultPerforming OrganizationAddressCity/State/ZIP CodePhone Number EXTERNAL LAB documented in this encounter Visit Diagnoses Not on filedocumented in this encounter Care Teams Team MemberRelationshipSpecialtyStart DateEnd Date Unallocated, [facility] Provider, [address] [place] [address] PCP - GeneralFamily Johduggr72/29/25documented as of this encounter
--- OUTSIDE RECORDS SUMMARY | 2025-09-11 06:16 | XMS_ITS | Clinical Summary ---
Author Organization [facility] Address [address] [facility] [place] [address] Care Team Providers Care Processor Solid Propellant Name Role Phone Unallocated, Noms Provider Primary Care Provi moses Allergies No known active allergies Medications MedicationSigDispense QuantityRefillsLast FilledStart DateEnd DateStatus VIT-FE FUMARATE-FA PO Take 1 tablet by mouth DailyActive acetaminophen (Tylenol) 500 MG tablet Take 1,000 mg by mouth every 6 (six) hours if neededActive Active Problems ProblemNoted DateDiagnosed DateEncounter for IUD vkjbuzi0507/09/2025 Encounters DateTypeDepartmentCare XnlwXgeuskpyfzu65/14/2025Orders Only [facility] [address] [place] [address] Vero Lowe MA 08/13/2025 10:20 AM EDTProcedure Visit [facility] [address] [place] [address] Luke Brooks DO Well woman exam with routine gynecological exam; Pre-operative exam; Request for knenvgxqrouxs07/28/2025Clinisync Result Encounter [facility] External Department Unsolicited Luke Brooks DO 5Bamboo flowsheet [facility] [address] [place] [address] Luke Brooks DO 07/22/2025 8:40 AM EDTOffice Visit [facility] [address] [place] [address] Manda Zaho, EMELIA Status post D&C; Positive urine test ([facility])07/22/2025amboo flowsheet [facility] [address] [place] [address] Manda Zhao, EMELIA 07/12/2025bstract [facility] [address] [place] [address] Luke Brooks, 07/09/2025 1:10 PM EDTProcedure Visit [facility] OBGYY[facility] [address] [place] [address] Luke Brooks, Encounter for IUD removal; Missed menses; Positive urine test ([facility])07/09/2025linisync Result Encounter [facility] External Department Unsolicited Luke Brooks, 07/08/2025bstract [facility] [address] [place] [address] Luke Brooks, 07/08/2025linisync Result Encounter [facility] External Department Unsolicited Luke Brooks, DO 07/08/2025Telephone [facility] [address] [place] [address] Luke Brooks, 07/04/2025Telephone [facility] [place] [facility] [address] [place] [address] Vero Lowe MA from Last 3 Months Social History Tobacco UseTypesPacks/DayYears UsedDateSmoking Tobacco: Never Tobacco Cessation:Counseling Given: Not Answered Alcohol UseStandard Drinks/WeekCommentsNot Currently0 (1 standard drink = 0.6 oz pure alcohol)CommentsNoSex and Gender InformationValueDate RecordedSex Assigned at BirthNot on fileLegal TxuJkwqns85/15/2023 7:15 PM EDTGender Identity Not on fileSexual OrientationNot on file Last Filed Vital Signs Vital SignReadingTime TakenCommentsBlood Pierrznk018/7808/13/2025 10:34 AM EDT Pulse--Temperature--Respiratory Rate--Oxygen Saturation--Inhaled Oxygen Concentration--Zgbkus13.9 kg (178 lb 6.4 oz)08/13/2025 10:34 AM YIZIimupx766.2 cm (5' 7 )07/22/2025 8:44 AM EDTBody Mass Index27.9407/22/2025 8:44 AM EDT Plan of Treatment Health MaintenanceDue DateLast DoneCommentsHPV/Yddxgc8302/03/2018COVID-19 Vaccine ( season)2025Influenza Vaccine (#1)2025ervical Cancer Iuieveguk12/28/2028Pap SmearPneumococcal Vaccine: Pediatrics (0 to 5 Years) and At-Risk Patients (6 to 64 Years)Aged OutNo longer eligible based on patient's age to complete this topic Procedures Procedure NamePriorityDate/TimeAssociated DiagnosisCommentsIGP,APTIMA HPV,AGE ECYMRfxtvum95/28/2025 10:25 AM EDT PAP TEST, JFWMBQHFWnqeiyx77/28/2025 12:00 AM EDTUS OB RZBBREZSNHND30/23/2025 3:10 PM EDT IUD RZIYSBSNcxpdku33/23/2025 1:52 PM EDT Encounter for IUD removal [facility] PREG QUANT PMHUvwxaoe63/22/2025 1:10 PM EDT from Last 3 Months Results * IGP,APTIMA HPV,AGE GDLN (08/13/2025 10:25 AM EDT)ComponentValueRef RangeTest MethodAnalysis TimePerformed AtPathologist SignatureAGE GDLN ACOG TESTINGNote. TBHComment: ?? TESTS ? RESULT ??FLAG ??UNITS ?REF RANGE ??LAB ?? Clinician Provided Cytology Information ?? Source.............Cervix;Endocervix ?? No. of containers..01 ThinPrep Vial Age Algo ACOG Elodia... ??30-65 ? 01 ?FLAG LEGEND: ?L-Low Normal,H-High Normal,LL-Alert Low,HH-Alert High <-Panic Low,>-Panic High,A-Abnormal,AA-Critical Abnormal Performed at: 01 =G ?[facility] ?? [address], [place] ??[phone] ?? Kendra Ferrer MD, IGP, APTIMA HPV, RFX 16/18,45Note.TBHComment: ?? TESTS ? RESULT ??FLAG ??UNITS ?REF RANGE ??LAB DIAGNOSIS: ?02 ?? UNSATISFACTORY FOR EVALUATION. ?? SPECIMEN REPROCESSED FOR INTERPRETATION USING GLACIAL ACETIC ACID ?? (GAA). Recommendation: ? 02 ?? Suggest follow up as clinically appropriate. Specimen adequacy: ?02 ?? Specimen processed and examined but unsatisfactory for evaluation of ?? epithelial abnormality because of obscuring blood. Performed by: ? 02 ?? Darcie Calle Exceptional Needs Teacher (ASCP) QC reviewed by: ? 02 ?? Velia Uribe Exceptional Needs Teacher (ASCP) . ? 02 Note: ? Note ?02 ?? The Pap smear is a screening test designed to aid in the ?? detection of premalignant and malignant conditions of the ?? uterine cervix. ??It is not a diagnostic procedure and ?? should not be used as the sole means of detecting cervical ?? cancer. ??Both false-positive and false-negative reports do ?? occur. Test Methodology: ? Note ?02 ?? This liquid based ThinPrep(R) pap test was interpreted ?? using the [place] SPARK(R) GenKapost(TM) Cervical Algorithm whole ?? slide imaging system. HPV Genotype Reflex ?? Note ?02 ?? Criteria not met, HPV Genotype not performed. ?FLAG LEGEND: ?L-Low Normal,H-High Normal,LL-Alert Low,HH-Alert High <-Panic Low,>-Panic High,A-Abnormal,AA-Critical Abnormal Performed at: 02 WB ?[facility] ?? [address] [place], [place] ??[phone] ?? Kendra Ferrer MD, HPV APTIMANegativeNegativeTBHComment: This nucleic acid amplification test detects fourteen high- risk HPV types (16,18,31,33,35,39,45,51,52,56,58,59,66,68) without differentiation. Performed at: ??=G - [facility] [address] ??[id number] Director Investment Banking: Kendra Ferrer MD, Phone: ??[phone] Performed at: ??WB - [facility] ??[id number] Director Investment Banking: Kendra Ferrer MD, Phone: ??[phone] Specimen (Source)Anatomical Location / LateralityCollection Method / Volume Collection TimeReceived Time10/ 10:25 AM EDT1 2:59 PM EDT Narrative [facility] - 08/19/2025 1:08 PM EST BRUSH-SPATULA CERVIX ENDOCERVIX Authorizing ProviderResult TypeResult StatusCorey Cecilia DOLAB BLOOD ORDERABLES Final ResultPerforming OrganizationAddressCity/State/ZIP CodePhone Number [facility] * PAP TEST, EXTERNAL (08/13/2025 12:00 AM EDT) Narrative Authorizing ProviderResult TypeResult StatusCorey Cecilia DOLAB CYTOLOGY ORDERABLESFinal ResultPerforming OrganizationAddressCity/State/ZIP CodePhone Number EXTERNAL LAB * US OB TRANSVAGINAL (07/09/2025 3:10 PM EDT)Anatomical RegionLateralityModality OtherSpecimen (Source)Anatomical Location / LateralityCollection Method / VolumeCollection TimeReceived Time07/09/2025 3:10 PM EDT Narrative 07/09/2025 3:30 PM EDT [facility] ?[address] ? [place] [id number] ? Ultrasound Report ? Signed ? Patient: HARSH DENNISON R ?MR#: [id number] ?? : 1990 ?Acct:[id number] ?? Age/Sex: 35 / F ?ADM Date: 07/09/25 ?? Loc: US ? Attending Dr: Luke Brooks D.O. ? Ordering Physician: Luke Brooks D.O. ?? Date of Service: 07/09/25 ?? Procedure(s): US OB transvaginal ?? Accession Number(s): [id number] ? cc: Luke Brooks D.O.; SARWAT MURRAY ? [facility] ? [address] ? [place] [address] ? Patient Name: ?? HARSH DENNISON ? MRN: [id number] ? date: 1990 ?Sex: F ?? Assigned Patient Location: US ?? Current Patient Location: [place] ?? Accession/Order Number: [id number] ?? Exam Date: 07/09/2025 ??14:32 ?Report Date: [...] ? Impression dictated by: Ricardo Umanzor Jr., Jamal.Wale ??07/09/2025 3:10 PM ? Dictation Location: [place] [address] ? Electronically authenticated by: [id number] ??Y ?? Date: 07/09/2025 ??15:10 ? Dictated By: ?Ricardo Umanzor M.D. ? Signed By: ?07/09/25 1530 ? DD/ 1510 ? TD/TT: ? Steeping Press Tender: Procedure Note Radiology, Radiologist, MD - 07/09/2025 [place] [address] Ultrasound Report Signed Patient: HARSH DENNISON R#: [id number] : 1990Acct:[id number] Age/Sex: 35 / FADM Date: 07/09/25 Loc: US Attending Dr: Luke Brooks D.O. Ordering Physician: Luke Brooks D.O. Date of Service: 07/09/25 Procedure(s): US OB transvaginal Accession Number(s): [id number] cc: Luke Brooks D.O.; SARWAT MURRAY [place] [address] Patient Name: HARSH DENNISON MRN: [id number] date: 1990 Sex: F Assigned Patient Location: [place] Current Patient Location: [place] Accession/Order Number: [id number] Exam Date: 07/09/2025 14:32 Report Date: 07/09/2025 [...] Jr., D.O. 07/09/2025 3:10 PM Dictation Location: [place] [address] Electronically authenticated by: [id number] Y Date: 5:10 Dictated By: Ricardo Umanzor M.D. Signed By:07/09/25 1530 DD/ 1510 TD/TT: Steeping Press Tender: Authorizing ProviderResult TypeResult Allison Brooks DOCLINISYNC IMAGINGFinal Result * IUD REMOVAL (07/09/2025 [...] schedule for bilateral salpingectomy. Authorizing ProviderResult TypeResult Allison Brooks DOIN CLINIC/BEDSIDE ORDERABLESFinal Result * [facility] PREG QUANT HCG (07/08/2025 1:10 PM EDT)ComponentValueRef RangeTest Method Analysis TimePerformed AtPathologist SignatureHCG JJFHKSROEQKC35gQW/mLTBH Comment: 5-50 ? 0.2-1 WEEK 50-500 ? 1-2 WEEKS 100-5,000 ?2-3 WEEKS 500-10,000 ? 3-4 WEEKS 1,000-50,000 ?? 4-5 WEEKS 10,000-100,000 5-6 WEEKS 15,000-200,000 6-8 WEEKS 10,000-100,000 2-3 MONTHS Specimen (Source)Anatomical Location / LateralityCollection Method / Volume Collection TimeReceived Time07/08/2025 1:10 PM EDT07/08/2025 1:11 PM EDT Narrative [facility] - 07/08/2025 1:59 PM EDT Authorizing ProviderResult TypeResult StatusCorey Cecilia DOCLINISYNCFinal Result Performing OrganizationAddressCity/State/ZIP CodePhone Number [facility] from Last 3 Months Insurance Care Teams Team MemberRelationshipSpecialtyStart DateEnd Date Unallocated, Noms Provider, [address] [place] [address] PCP - GeneralFamily Byafoafl38/29/25
[2025-09-11 06:20] LABS: Hematocrit 39.8 % (36.0-48.0); Hemoglobin 13.1 g/dL (12.0-16.0); Immature Granulocytes Abs Auto 0.02 10^3/uL (0.00-0.03); Immature Granulocytes Pct Auto 0.3 % (0.0-0.5); Lymphocytes Absolute Auto 2.7 10^3/uL (1.2-3.8); Mean Corpuscular HGB Conc 32.9 g/dL (29.9-35.2); Mean Corpuscular Hemoglobin 30.8 pg (26.7-34.0); Mean Corpuscular Volume 93.6 fL (81.0-99.0); Platelet Count 238 10^3/uL (150-450); Red Blood Count 4.25 10^6/uL (4.20-5.40); White Blood Count 6.7 10^3/uL (4.0-11.0)
--- NOTE | 2025-09-11 08:18 | PM.ONB ---
Brief Operative Note Date of procedure: 09/11/25 Pre-op diagnosis general: desires permanent sterilization, mulitiparity Post-op diagnosis: same as pre-op Procedure: NAME OF PROCEDURE: robotic assisted bilateral laparoscopic salpingectomy PROCEDURE: The patient was taken back to the Operating Room where she was given general anesthesia without difficulty. She was then prepped and draped in the normal sterile fashion after being placed in a dorsal lithotomy position. A wet sponge stick was placed into the patient's vagina. Attention was then turned to the patient's abdomen, where a scalpel was used to make a small infraumbilical incision. The S retractors were then used to dissect the underlying layers until the fascia could be seen. The fascia was then grasped with Sharron clamps and tented up. A knife was then used to make a small incision to the fascia. The muscle was identified, at that time two sutures of #0 Vicryl on a GI needle was then used and placed through the fascia. the peritoneum was then identified and entered bluntly. The 10-4 Abram was then placed into the patient's abdomen. This was confirmed with direct visualization of the bowel, using the laparoscope. The patient's abdomen was then insufflated using approximately 4 liters of CO2 gas. Survey of the patient's abdomen demonstrated ovaries were normal in appearance as well as both tubes and uterus. A second and third rt and lt lateral robotic ports which were 8 mm in size, was then placed after the skin incision was made under direct visualization . the robotic arms were engaged. The patient's tube on the patient's right side was identified and tented up using a grasper, the ligasure apparatus was then used to come across the mesosalpingx from the fimbriated end to the insertion site at the uterus, the tube was then amputated and removed in its entirety. This was done on the contralateral side. The tubes were the removed from the patients abdomen. Excellent hemostasis was noted. The lateral ports were then moved under direct visualization with excellent hemostasis. All instruments were removed from the patient's abdomen. The fascia was closed using the #0 Vicryl on GI needle. The skin was closed using 4-0 Vicryl subcuticularly. All instruments were removed from the patient's vagina as well. The patient was taken out of the dorsal lithotomy position and placed in the supine position and taken to recovery in stable condition. Sponge, lap and needle counts were correct x2. Anesthesia: LALA Surgeon: Sudhir Brooks Director Of Individual Giving: Delmis Welch Estimated blood loss (mL): 5 Pathology: other (tubes) Condition: stable Disposition: PACU Urinary Catheter Management Urinary Catheter Management Urethral: Cath placed during this visit: no
[2025-09-11] MEDS: HYDROMORPHONE HCL 0.5 MG/0.5 ML SYRINGE IV ×2 (09:15→09:31)
[2025-09-11] MEDS: HYDROCODONE/ACET 5-325 MG TABLET 1 TAB PO (09:18)
--- NOTE | 2025-09-11 10:33 | PC.NURSE ---
1025: pt ambulates to bathroom,voids without difficulty.
== END 2025-09-11 10:35 | disposition home or self-care (01) ==
LOC: SURGOUT 06:13
PROVIDERS: Visit Provider Obstetrics & Gynecology
PROC: (CPT 840; principal; 2025-09-11 07:30)
DX: Z30.2 Encounter for sterilization (principal); N83.8 Other noninflammatory disorders of ovary, fallopian tube and broad ligament
CPT/HCPCS: 58661; 36415; 84702; 85025; 88302; J1100; J1171; J1885; J2250; J2405; J2704; J3010